=== PATIENT | female | born 1955 | race Caucasian/White ===

== ENCOUNTER 2016-09-27 13:02 | Day surgery (SDC) | payer MEDICARE, OTHER ==
[2016-09-19 08:51] VITALS: BMI 28.3
[~2016-09-27 13:02] MED LIST: LACTATED RINGERS 1,000 ML IV SCH
[2016-09-27 13:37] VITALS: RESP 18; TEMP 98.4
[2016-09-27] MEDS ORDERED: LIDOCAINE 1% 20 ML VIAL (10MG/ML) FOR IV START INTRADERMA ONE (13:43)
[2016-09-27] MEDS ORDERED: PROPOFOL 10 MG/ML 20 ML VIAL IV ONE (15:03)
--- NOTE | 2016-09-27 15:37 | P.PCN ---
Date of Procedure: 09/27/16 Procedure(s) Performed: Procedure: 1. Esophagogastroduodenoscopy and biopsy. 2. Total colonoscopy. Preoperative diagnosis: Unexplained weight loss and change in bowel habits. Postoperative diagnosis: 1. Small sliding hiatal hernia with no evidence of esophagitis or complicated reflux disease. 2. Mild gastritis and duodenitis. 3. Diverticulosis of the colon with no evidence of acute diverticulitis, strictures, polyps or cancer. Preparation: HalfLytely prep. Sedation: Was provided by anesthesia. Brief clinical history: The patient is a 60-year-old female who is referred for this evaluation for the above reasons. She had a colonoscopy around 5 years ago. The patient has lost around 20-25 pounds over the last couple months. Occasional difficulty swallowing but no history of bleeding. No prior upper endoscopy. Procedure: With the patient on her left lateral decubitus position and after informed consent and adequate sedation, I passed the Olympus-GIF 160 video upper endoscope through the cricopharyngeus down the esophagus. GE junction was around 38 cm from the incisors and there was a small sliding hiatal hernia. The esophagus did not show any erosions, ulcers, strictures or Morfin's esophagus. The endoscope was then passed into the stomach which was insufflated with air and inspected in detail including the retroflex view in the cardia. There was some mottling and erythema in the antrum but no ulcers or erosions. Pyloric channel did not show any ulcers. Duodenal bulb, post bulbar area and descending duodenum showed minimal erythema. I obtained biopsies from the duodenum, antrum and esophagus then the endoscope was withdrawn and I proceeded with the colonoscopy. Perianal area did not show any fissures or fistulas. There were no masses felt on digital rectal examination. The Olympus CFQ 160L video colonoscope was then inserted in the rectum in the usual fashion and advanced to the cecum. There were multiple diverticular orifices seen scattered along the length of the bowel mostly on the left side with no evidence of acute diverticulitis or strictures. The mucosa appeared healthy. No polyps or tumors were seen. I retroflexed endoscope in the rectum before the endoscope was withdrawn. The patient tolerated the procedure well. Plan: The patient was reassured. Will await pathology results. She will follow -up with you as planned and I will be happy to see in the office of her symptoms persist.
[2016-09-27] MEDS ORDERED: LACTATED RINGERS 1,000 ML IV ONE (15:40)
[2016-09-27] MEDS ORDERED: ALBUTEROL NEBULIZED 2.5 MG/3 ML INHALATION STA (15:46)
[2016-09-27 15:55] VITALS: BP 137/77
[2016-09-27 16:10] VITALS: PULSE 77
== END 2016-09-27 16:29 | disposition home or self-care (01) ==
LOC: ORWHC2ENDO 13:02
DX: K21.0 Gastro-esophageal reflux disease with esophagitis (principal); K29.50 Unspecified chronic gastritis without bleeding; K29.80 Duodenitis without bleeding; K44.9 Diaphragmatic hernia without obstruction or gangrene; K57.30 Diverticulosis of large intestine without perforation or abscess without bleeding; F17.200 Nicotine dependence, unspecified, uncomplicated; F32.9 Major depressive disorder, single episode, unspecified; Z79.891 Long term (current) use of opiate analgesic; Z79.899 Other long term (current) drug therapy; Z79.51 Long term (current) use of inhaled steroids
CPT/HCPCS: 94640; 88305; 88342; 45378; 43239; J2704

== ENCOUNTER → 2016-11-22 | Outpatient (CLI) | payer MEDICARE, OTHER ==
--- NOTE | 2016-11-22 16:06 | CT ---
EXAMINATION TYPE: CT chest w con DATE OF EXAM: 11/22/2016 3:57 PM COMPARISON: 01/01/2015 HISTORY: ABNORMAL FINDINGS ON CXR. CT DLP: 216.4 mGycm Automated exposure control for dose reduction was used. CONTRAST: CT scan of the chest is performed with IV Contrast, patient injected with 90 mL of Omnipaque 300. FINDINGS: LUNGS: There is a new left upper lobe pulmonary mass measuring 5.4 x 4.3 cm with peripheral spiculati on and focal extension to the pleural surface. This mass is felt to reflect malignancy until proven o therwise. No additional pulmonary nodules or masses are seen. Small focal pleural-based calcification right midlung zone. MEDIASTINUM: AP window adenopathy measuring up to 1 cm. Left hilar adenopathy measuring 1 cm. No maxwell tional greater than 1 cm lymph nodes are seen at this time. UPPER ABDOMEN: Heterogenous left adrenal mass is again noted and measures of 4.5 x 3.6 cm versus 4.2 x 3.5 cm. Right adrenal gland is unremarkable. OTHER: No additional significant abnormality is seen. IMPRESSION: 1. New left upper lobe mass felt to reflect malignancy until proven otherwise. Mild mediastinal and l eft hilar adenopathy. 2. Enlarging heterogenous left adrenal mass. Metastatic disease is not excluded.
== END | disposition home or self-care (01) ==
LOC: RADCTMAIN 15:30
PROVIDERS: ATTEND Family Medicine
DX: R91.8 Other nonspecific abnormal finding of lung field (principal); R59.0 Localized enlarged lymph nodes
CPT/HCPCS: 71260; Q9967

== ENCOUNTER → 2016-11-29 | Outpatient (CLI) | payer MEDICARE, OTHER ==
--- NOTE | 2016-11-29 18:57 | CT ---
EXAMINATION TYPE: CT brain wo/w con DATE OF EXAM: 11/29/2016 6:38 PM COMPARISON: NONE HISTORY: Lung mass. Headache, dizziness, and weakness. CT DLP: 2336.00 mGycm Automated exposure control for dose reduction was used. CONTRAST: CT scan of the head is performed without and with IV Contrast, patient injected with 100 mL of Omnipa que 300. FINDINGS: The ventricles of normal size. There is no mass effect nor midline shift. There is no sign of intracr anial hemorrhage. The calvarium appears intact. There is no pathologic enhancement. IMPRESSION: Negative head CT scan. No evidence of metastatic disease.
== END | disposition home or self-care (01) ==
LOC: RADCTMAIN 17:40
PROVIDERS: ATTEND Internal Medicine Hematology & Oncology
DX: R91.8 Other nonspecific abnormal finding of lung field (principal)
CPT/HCPCS: 70470; Q9967; 80053

== ENCOUNTER → 2016-12-07 | Day surgery (SDC) | payer MEDICARE, OTHER ==
[~2016-12-07] MED LIST changes: +HYDROmorphone 1 MG/ML 1 ML SYRINGE IVP PRN; -LACTATED RINGERS 1,000 ML IV SCH; +oxyCODONE-APAP 10-325MG 1 EACH TAB PO PRN
[2016-12-07 08:27] VITALS: RESP 20
[2016-12-07 08:35] LABS: Mean Platelet Volume 6.5
[2016-12-07 08:41] LABS: INR 1.1 (<1.1); Prothrombin Time 10.7 sec (9.0-12.0)
--- NOTE | 2016-12-07 10:11 | XR ---
EXAMINATION TYPE: XR chest 1V portable DATE OF EXAM: 12/07/2016 COMPARISON: NONE INDICATION: Left upper lobe fine-needle aspiration TECHNIQUE: Single frontal view of the chest is obtained. Images upright view FINDINGS: The heart size is normal. The pulmonary vasculature is normal. There is a 5.2 cm spiculated mass left apex. No pneumothorax is evident. IMPRESSION: 1. Left apical mass. 2. No pneumothorax post needle aspiration.
--- NOTE | 2016-12-07 10:17 | CT ---
EXAMINATION TYPE: CT biopsy lung LT DATE OF EXAM: 12/07/2016 HISTORY: Left upper lobe lung mass COMPARISON: CT 11/22/2016 Maximal barrier technique was utilized. The skin overlying a suitable path to the lesion was localiz ed using CT and the overlying skin was prepped and draped. Lidocaine used for local anesthesia. A s kin monty made with a scalpel. Using CT guidance, access was gained to the lesion with a 22-gauge nee dle. Aspirated specimen submitted to cytology. 5 passes were performed in all. Following the proce dure no immediate complications. The patient is discharged in stable condition. Hemostasis achieve d. IMPRESSION: SUCCESSFUL CT GUIDED BIOPSY. PATHOLOGY PENDING. THIS PROCEDURE WAS PERFORMED BY THE UNDERSIGNED.
--- NOTE | 2016-12-07 12:27 | XR ---
EXAMINATION TYPE: XR chest 1V portable DATE OF EXAM: 12/07/2016 COMPARISON: NONE INDICATION: Postbiopsy TECHNIQUE: Single frontal view of the chest is obtained. FINDINGS: The heart size is normal. The pulmonary vasculature is normal. There is a left apical lung mass. No pneumothorax is evident. Some blunting left costophrenic angle may be present. Correlate for atelectasis. IMPRESSION: 1. No pneumothorax post biopsy. 2. Blunting of the left costophrenic angle. Follow-up can be performed as clinically indicated.
[2016-12-07 13:26] VITALS: BP 118/68; PULSE 66; TEMP 98.2
== END ==
LOC: RADPROMAIN 08:02
PROVIDERS: ATTEND Internal Medicine Hematology & Oncology
DX: C34.12 Malignant neoplasm of upper lobe, left bronchus or lung (principal); R91.8 Other nonspecific abnormal finding of lung field; J44.9 Chronic obstructive pulmonary disease, unspecified; M79.7 Fibromyalgia; Z87.891 Personal history of nicotine dependence; Z79.1 Long term (current) use of non-steroidal anti-inflammatories (NSAID); Z79.891 Long term (current) use of opiate analgesic; Z79.899 Other long term (current) drug therapy; Z79.51 Long term (current) use of inhaled steroids
CPT/HCPCS: 36415; 71010; 77012; 85049; 85610; 88173; 88305; 88341; 88342

== ENCOUNTER → 2016-12-10 | Outpatient (CLI) | payer MEDICARE, OTHER ==
--- NOTE | 2016-12-12 10:41 | PE ---
Nuclear medicine PET/CT HISTORY: Lung carcinoma Patient received 13.3 mCi F-18 FDG intravenously and delayed scanning performed from the skull base t o the mid thighs. Localization and attenuation correction CT scan was also performed. Correlation to CT brain 11/29/2016, CT chest 01/01/2015 and 11/22/2016, chest x-ray 12/07/2016 Neck and chest: At the upper lobe lung mass is again noted and shows pleural extension as well as ext ension toward the mediastinum at the upper aspect of the chest. Some prevascular lymph nodes are note d. Retrocaval pretracheal nodes are not enlarged. Calcified left hilar, subcarinal nodes are present. Left hilar node shows SUV 5.2 and aorticopulmonary window node shows hypermetabolic uptake and aorti copulmonary window node is enlarged. SUV is 3.8. The left upper lobe lung mass measures approximately 6 to 7 cm in size in the axial plane, SUV is 21-22. Calcified subpleural nodule noted on the right l aterally within the lungs, axial image 90. Abdomen pelvis: There is a left adrenal mass present which shows low attenuation, there is some assoc iated calcification, no suspicious hypermetabolic uptake, the mass measures approximately 4.2 cm in g reatest dimension. Calcifications are associated within the spleen. No retroperitoneal adenopathy, no suspicious hypermetabolic uptake. Uptake within the right colon thought to be physiologic. Osseous structures within normal limits. IMPRESSION: Findings compatible with patient's history of lung carcinoma. Additional findings above.
== END | disposition home or self-care (01) ==
LOC: RADPETMAIN 09:49
PROVIDERS: ATTEND Internal Medicine Hematology & Oncology
DX: R91.1 Solitary pulmonary nodule (principal); Z85.118 Personal history of other malignant neoplasm of bronchus and lung
CPT/HCPCS: 78815; A9552

== ENCOUNTER 2017-02-23 12:36 | Emergency (ER) | payer MEDICARE, OTHER ==
[2017-02-23] MEDS ORDERED: ONDANSETRON 4 MG/2 ML VIAL IVP STA (13:00)
[2017-02-23] MEDS ORDERED: HYDROmorphone 1 MG/ML 1 ML SYRINGE IVP STA ×2 (13:00→14:42)
[2017-02-23] MEDS ORDERED: SODIUM CHLORIDE 0.9% 1,000 ML IV STA ×2 (13:00→14:42)
--- NOTE | 2017-02-23 13:03 | ED ---
General Adult HPI - General Chief complaint: Weakness Stated complaint: Vomiting Time Seen by Provider: 02/23/17 12:45 Source: patient, family, EMS, RN notes reviewed Mode of arrival: EMS - History of Present Illness Initial comments: 61-year-old female has history of lung cancer presents to the emergency department with a chief complaint of nausea vomiting and diarrhea. Patient states she woke up yesterday morning states she's been sick with this for the past 24 hours. Patient states her last chemo radiation treatment was about a week and a half. Patient states she's never had this reaction to that. Patient states she hasn't had any fever or chills. Patient states she does have soreness from throwing up so much. Patient states she was concerned due to hydration. Patient denies any recent fever, chills, shortness of breath, chest pain, numbness or tingling, dysuria or hematuria, headaches or visual changes, or any other current symptoms. - Related Data Home Medications Medication Instructions Recorded Confirmed Albuterol Inhaler [Ventolin Hfa 2 puff INHALATION QID PRN 12/03/13 02/23/17 Inhaler] Cevimeline [Evoxac] 30 mg PO BID 12/03/13 02/23/17 Escitalopram [Lexapro] 20 mg PO DAILY 12/03/13 02/23/17 Esomeprazole Magnesium [NexIUM] 40 mg PO BID 12/03/13 02/23/17 Fesoterodine Fumarate [Toviaz] 8 mg PO DAILY 12/03/13 02/23/17 Ibuprofen [Motrin] 600 mg PO Q6HR PRN 12/03/13 02/23/17 Multivit with Calcium,Iron,Min 1 tab PO DAILY 12/29/14 02/23/17 [Women's Daily Multivitamin] Latanoprost Ophth [Xalatan 0.005%] 1 drops BOTH EYES HS 09/05/16 02/23/17 oxyCODONE-APAP 10-325MG [Percocet 1 tab PO Q4-6H PRN 09/05/16 02/23/17 10-325 mg] clonazePAM [KlonoPIN] 0.5 mg PO BID PRN 11/30/16 02/23/17 Albuterol Nebulized [Ventolin 2.5 mg INHALATION RT-Q4H PRN 02/23/17 02/23/17 Nebulized] Budesonide-Formot 160-4.5 Mcg 2 puff INHALATION RT-BID 02/23/17 02/23/17 [Symbicort 160-4.5 Mcg Inhaler] Fluticasone Propionate 2 spray EA NOSTRIL DAILY 02/23/17 02/23/17 Lidocaine 5% Oint [Xylocaine 5% 1 applic TOPICAL BID PRN 02/23/17 02/23/17 Oint] Magic Mouthwash 1 dose PO DIRECTED PRN 02/23/17 02/23/17 Ondansetron Odt [Zofran ODT] 8 mg PO Q6H PRN 02/23/17 02/23/17 Prochlorperazine [Compazine] 10 mg PO Q6H PRN 02/23/17 02/23/17 Umeclidinium [place] [Incruse 1 puff INHALATION RT-DAILY 02/23/17 02/23/17 Ellipta] Previous Rx's Medication Instructions Recorded Morphine Sulfate [Ms Contin] 30 mg PO BID #60 tablet.er 03/11/15 Allergies Allergy/AdvReac Type Severity Reaction Status Date / Time No Known Allergies Allergy Verified 02/23/17 14:31 Review of Systems ROS Statement: Those systems with pertinent positive or pertinent negative responses have been documented in the HPI. ROS Other: All systems not noted in ROS Statement are negative. Past Medical History Past Medical History: Cancer, COPD, CVA/TIA, Fibromyalgia, GERD/Reflux, Hyperlipidemia, Osteoarthritis (OA), Pneumonia Additional Past Medical History / Comment(s): ADRENAL TUMOR, hx migraines, TIA, hiatal hernia, constipation, urinary incontinence,. DDD, BACK PAIN.,PT STATES RESCHEDULED FOR EGD AND COLONOSCOPY DUE TO COLD SYMPTOMS BUT SHE IS BETTER NOW. Lung cancer diagnosed November 2016. History of Any Multi-Drug Resistant Organisms: None Reported Additional Past Surgical History / Comment(s): SINUS surgery Past Anesthesia/Blood Transfusion Reactions: No Reported Reaction Past Psychological History: Depression Smoking Status: Former smoker Past Alcohol Use History: None Reported Past Drug Use History: None Reported - Past Family History Mother Family Medical History: Cancer Father Family Medical History: Cancer General Exam - General Exam Comments Initial Comments: General: The patient is awake and alert, in no distress, and does not appear acutely ill. Eye: Pupils are equal, round and reactive to light, extra-ocular movements are intact; there is normal conjunctiva bilaterally. No signs of icterus. Ears, nose, mouth and throat: There are moist mucous membranes. Neck: The neck is supple, there is no tenderness. Cardiovascular: There is a regular rate and rhythm. No murmur, rub or gallop is appreciated. Respiratory: Lungs are clear to auscultation, respirations are non-labored, breath sounds are equal. No wheezes, stridor, rales, or rhonchi. Gastrointestinal: Soft, non-distended, non-tender abdomen without masses or organomegaly noted. There is no rebound or guarding present. No CVA tenderness. Bowel sounds are unremarkable. Back: There is no tenderness to palpation in the midline. There is no obvious deformity. No rashes noted. Musculoskeletal: Normal ROM, no tenderness, There is no pedal edema. There is no calf tenderness or swelling. Sensation intact. Pulses equal bilaterally 2+. Neurological: CN II-XII intact, There are no obvious motor or sensory deficits. Coordination appears grossly intact. Speech is normal. Skin: Skin is warm and dry and no rashes or lesions are noted. Psychiatric: Cooperative, appropriate mood & affect, normal judgment. Course Vital Signs 02/23/17 02/23/17 02/23/17 12:42 13:59 14:41 Temperature 98.5 F 98.3 F 97.7 F Pulse Rate 64 66 81 Respiratory 20 18 16 Rate Blood Pressure 169/79 165/82 165/94 O2 Sat by Pulse 98 97 98 Oximetry 02/23/17 02/23/17 15:03 15:18 Temperature Pulse Rate 66 69 Respiratory Rate Blood Pressure O2 Sat by Pulse Oximetry Medical Decision Making - Medical Decision Making 61-year-old female presents to the emergency department with a chief complaint of nausea vomiting diarrhea.at this time patient was reevaluated states she has improved. She has not had vomiting. This time she was offered admission for continued supportive care. She states she does not want this and she would like to go home. At this time we will give her another fluid bolus and more nausea and pain medication. We discussed close follow-up and return parameters all patient's questions. She stated that she understood and she screamed this plan. This time she will be discharged home. - Lab Data Result diagrams: 02/23/17 13:15 02/23/17 13:15 Lab Results 02/23/17 02/23/17 02/23/17 Range/Units 13:15 13:15 13:15 WBC 10.1 (3.8-10.6) k/uL RBC 5.16 (3.80-5.40) m/uL Hgb 15.2 (11.4-16.0) gm/dL Hct 45.6 (34.0-46.0) % MCV 88.4 (80.0-100.0) fL MCH 29.4 (25.0-35.0) pg MCHC 33.3 (31.0-37.0) g/dL RDW 18.9 H (11.5-15.5) % Plt Count 408 (150-450) k/uL Neutrophils % 85 % Lymphocytes % 10 % Monocytes % 3 % Eosinophils % 0 % Basophils % 0 % Neutrophils # 8.6 H (1.3-7.7) k/uL Lymphocytes # 1.0 (1.0-4.8) k/uL Monocytes # 0.3 (0-1.0) k/uL Eosinophils # 0.0 (0-0.7) k/uL Basophils # 0.0 (0-0.2) k/uL Anisocytosis Slight PT (9.0-12.0) sec INR (<1.2) APTT (22.0-30.0) sec Sodium 142 (137-145) mmol/L Potassium 4.0 (3.5-5.1) mmol/L Chloride 104 (98-107) mmol/L Carbon Dioxide 27 (22-30) mmol/L Anion Gap 11 mmol/L BUN 9 (7-17) mg/dL Creatinine 0.62 (0.52-1.04) mg/dL Est GFR (MDRD) Af Amer >60 (>60 ml/min/1.73 sqM) Est GFR (MDRD) Non-Af >60 (>60 ml/min/1.73 sqM) Glucose 128 H (74-99) mg/dL Plasma Lactic Acid [place] (0.7-2.0) mmol/L Calcium 9.3 (8.4-10.2) mg/dL Phosphorus 3.5 (2.5-4.5) mg/dL Magnesium 1.8 (1.6-2.3) mg/dL Total Bilirubin 0.4 (0.2-1.3) mg/dL AST 18 (14-36) U/L ALT 31 (9-52) U/L Alkaline Phosphatase 109 (38-126) U/L Total Protein 7.8 (6.3-8.2) g/dL Albumin 4.3 (3.5-5.0) g/dL Amylase 35 (30-110) U/L Lipase 25 (23-300) U/L Urine Color Urine Appearance (Clear) Urine pH (5.0-8.0) Ur Specific [place] (1.001-1.035) Urine Protein (Negative) Urine Glucose (UA) (Negative) Urine Ketones (Negative) Urine Blood (Negative) Urine Nitrite (Negative) Urine Bilirubin (Negative) Urine Urobilinogen (<2.0) mg/dL Ur Leukocyte Esterase (Negative) Amorphous Sediment (None) /hpf Urine Mucus (None) /hpf 02/23/17 02/23/17 02/23/17 Range/Units 13:15 13:19 13:47 WBC (3.8-10.6) k/uL RBC (3.80-5.40) m/uL Hgb (11.4-16.0) gm/dL Hct (34.0-46.0) % MCV (80.0-100.0) fL MCH (25.0-35.0) pg MCHC (31.0-37.0) g/dL RDW (11.5-15.5) % Plt Count (150-450) k/uL Neutrophils % % Lymphocytes % % Monocytes % % Eosinophils % % Basophils % % Neutrophils # (1.3-7.7) k/uL Lymphocytes # (1.0-4.8) k/uL Monocytes # (0-1.0) k/uL Eosinophils # (0-0.7) k/uL Basophils # (0-0.2) k/uL Anisocytosis PT 10.0 (9.0-12.0) sec INR 1.0 (<1.2) APTT 25.1 (22.0-30.0) sec Sodium (137-145) mmol/L Potassium (3.5-5.1) mmol/L Chloride (98-107) mmol/L Carbon Dioxide (22-30) mmol/L Anion Gap mmol/L BUN (7-17) mg/dL Creatinine (0.52-1.04) mg/dL Est GFR (MDRD) Af Amer (>60 ml/min/1.73 sqM) Est GFR (MDRD) Non-Af (>60 ml/min/1.73 sqM) Glucose (74-99) mg/dL Plasma Lactic Acid [place] 1.0 (0.7-2.0) mmol/L Calcium (8.4-10.2) mg/dL Phosphorus (2.5-4.5) mg/dL Magnesium (1.6-2.3) mg/dL Total Bilirubin (0.2-1.3) mg/dL AST (14-36) U/L ALT (9-52) U/L Alkaline Phosphatase (38-126) U/L Total Protein (6.3-8.2) g/dL Albumin (3.5-5.0) g/dL Amylase (30-110) U/L Lipase (23-300) U/L Urine Color Light Yellow Urine Appearance Cloudy H (Clear) Urine pH 8.0 (5.0-8.0) Ur Specific [place] 1.008 (1.001-1.035) Urine Protein Negative (Negative) Urine Glucose (UA) Negative (Negative) Urine Ketones Negative (Negative) Urine Blood Negative (Negative) Urine Nitrite Negative (Negative) Urine Bilirubin Negative (Negative) Urine Urobilinogen <2.0 (<2.0) mg/dL Ur Leukocyte Esterase Negative (Negative) Amorphous Sediment Rare H (None) /hpf Urine Mucus Rare H (None) /hpf Disposition Clinical Impression: Nausea & vomiting, Diarrhea Disposition: HOME SELF-CARE Condition: Stable Instructions: Acute Nausea and Vomiting (ED) Additional Instructions: Please use medication as discussed. Please follow up with family doctor if symptoms have not improved over the next two days. Please return to the emergency room if your symptoms increase or worsen or for any other concerns. Referrals: Steffi Benoit MD [Primary Care Provider] - 1-2 days Time of Disposition: 15:54
[2017-02-23 13:42] LABS: Anisocytosis Slight; Basophils % (A) 0 %; CH 29.3; CHCM 33.3; Eosinophils % (A) 0 %; HCT 45.6 % (34.0-46.0); HDW 2.55; HGB 15.2 gm/dL (11.4-16.0); Luc # (Auto) 0.11; Luc % (Auto) 1; Lymphocytes % (A) 10 %; MCH 29.4 pg (25.0-35.0); MCHC 33.3 g/dL (31.0-37.0); MCV 88.4 fL (80.0-100.0); Mean Platelet Volume 6.4; Monocytes # (A) 0.3 k/uL (0-1.0); Monocytes % (A) 3 %; Neutrophils # (A) 8.6 k/uL (1.3-7.7); Neutrophils % (A) 85 %; RBC 5.16 m/uL (3.80-5.40); RDW 18.9 % (11.5-15.5); WBC 10.1 k/uL (3.8-10.6); WBC (Perox) 9.95
[2017-02-23 13:51] LABS: Magnesium 1.8 mg/dL (1.6-2.3); Phosphorous 3.5 mg/dL (2.5-4.5)
[2017-02-23 13:52] LABS: ALT 31 U/L (9-52); AST 18 U/L (14-36); Alkaline Phosphatase 109 U/L (38-126); Amylase 35 U/L (30-110); Anion Gap 11 mmol/L; Blood Urea Nitrogen 9 mg/dL (7-17); Calcium 9.3 mg/dL (8.4-10.2); Carbon Dioxide 27 mmol/L (22-30); Chloride 104 mmol/L (98-107); Glucose 128 mg/dL (74-99); Non-African American GFR(MDRD) >60 (>60 ml/min/1.73 sqM); Sodium 142 mmol/L (137-145); Total Bilirubin 0.4 mg/dL (0.2-1.3); Total Protein 7.8 g/dL (6.3-8.2)
[2017-02-23 14:01] LABS: Partial Thromboplastin Time 25.1 sec (22.0-30.0)
[2017-02-23 14:01] LABS: Amorphous Sediment,Urine Rare /hpf; Appearance,Urine Cloudy (Clear); Bilirubin,Urine Negative (Negative); Glucose,Urine (UA) Negative (Negative); Ketones,Urine Negative (Negative); Leukocyte Esterase,Urine Negative (Negative); Mucus,Urine Rare /hpf; Nitrite,Urine Negative (Negative); Particle Count 9185; Protein,Urine Negative (Negative); Specific Gravity,Urine 1.008 (1.001-1.035); UA Billing (MACRO vs. MICRO) MICRO; Urobilinogen,Urine <2.0 mg/dL (<2.0)
--- NOTE | 2017-02-23 14:31 | XR ---
EXAMINATION TYPE: XR chest 2V DATE OF EXAM: 02/23/2017 COMPARISON: 12/07/2016 HISTORY: Stage III left lung cancer treated with chemotherapy and radiation. TECHNIQUE: Frontal and lateral views of the chest are obtained. FINDINGS: Spiculated left upper lobe pulmonary mass is redemonstrated, decreased in size in the inte rim. Prominent sub-pleural fat and pleural reaction at the cardiophrenic angle on the left is redemon strated blunting the costophrenic angle. No focal consolidation, pleural effusion, or pneumothorax are appreciated. Cardiomediastinal silhouet te is within normal limits. Osseous structures are intact. IMPRESSION: 1. Interval decrease in size of the spiculated left upper lobe pulmonary mass corresponding to the kn own lung carcinoma. No new focal consolidation.
--- NOTE | 2017-02-23 14:33 | XR ---
2 view abdomen HISTORY: Pain 2 views of the abdomen correlated with chest x-ray same date Degenerative disc changes are present in the visualized spine, bone mineralization is reduced. There is no pneumoperitoneum or bowel obstruction. Probable vascular calcifications within the pelvis. Left proximal femur shows an apparent foreshortening view possibly due to rotation. Partial sacralization of L5 on the left. IMPRESSION: No acute abnormalities evident. Additional findings above.
[2017-02-23] MEDS ORDERED: METOCLOPRAMIDE 5 MG/ML 2 ML VIAL IVP STA (14:42)
[2017-02-23] MEDS ORDERED: IPRATROPIUM-ALBUTEROL 3 ML NEB INHALATION STA (15:00)
[2017-02-23 15:55] VITALS: BP 110/57; PULSE 87; RESP 18; TEMP 98
== END 2017-02-23 16:37 | disposition home or self-care (01) ==
LOC: EC 12:36
DX: R11.2 Nausea with vomiting, unspecified (principal); R19.7 Diarrhea, unspecified; R53.1 Weakness; J44.9 Chronic obstructive pulmonary disease, unspecified; K21.9 Gastro-esophageal reflux disease without esophagitis; F32.9 Major depressive disorder, single episode, unspecified; Z87.891 Personal history of nicotine dependence; Z79.51 Long term (current) use of inhaled steroids; Z79.899 Other long term (current) drug therapy; Z87.448 Personal history of other diseases of urinary system
CPT/HCPCS: 36415; 94640; 80053; 82150; 83605; 83690; 83735; 84100; 85025; 85610; 85730; 81001; 87040; 87086; 71020; 74020; 99285; 96374; 96375 ×2; 96376; 96361 ×2; J2765; J2405; J1170

== ENCOUNTER → 2017-03-04 | Outpatient (CLI) | payer MEDICARE, OTHER ==
--- NOTE | 2017-03-05 13:23 | PE ---
EXAMINATION TYPE: PET CT fusion skull to thigh DATE OF EXAM: 03/04/2017 COMPARISON: 12/07/2016, 11/22/2016, CT abdomen pelvis 02/18/2009 Prior PET/CT: 12/10/2016 HISTORY: Lung cancer TECHNIQUE: Following the intravenous administration of 15.6 mCi of F-18 FDG, whole body images are p erformed from the skull base to the midthigh. Images are reviewed on the computer in the coronal, ax ial, and sagittal planes. Reconstructed rotating images are created on independent workstation and r eviewed on the computer. A localization and attenuation correction CT is performed in conjunction w ith the PET scan. DLP: 285.29 mGycm SCAN: Subsequent Blood glucose: 97 mg/dL Average Mediastinum SUV: 1.3 Average Liver SUV: 2.0 FINDINGS: NECK: No abnormal uptake THORAX: There is focal increased radiotracer accumulation within the left upper lobe mass with an SUV value of 4.8. No abnormal uptake within the mediastinum or hilar regions is evident. ABDOMEN: No abnormal uptake the enlarged left adrenal gland has a normal radiotracer accumulation mario suring SUV 1.5. PELVIS: No abnormal uptake OSSEOUS STRUCTURES: No abnormal uptake LOCALIZATION CT: Left upper lobe mass spiculated. There may be a left peribronchial lymph node which is not enlarged by CT criteria and has an SUV value 1.5. Previous aortopulmonic window lymph node is not identified. Coronary artery calcification is present. The left adrenal gland is enlarged measurin g 4.0 cm in size. COMPARISON: Left upper lobe lung mass has diminished in size. Previous aortopulmonic window lymph nod e which are elevated SUV previous left peribronchial node which has elevated SUV are not hyperintense on the current study. The left adrenal gland is been enlarged since 2008. IMPRESSION: 1. Solitary pulmonary mass left upper lobe compatible with neoplasm. 2. No suspicious findings suggestive for metastatic disease. 3. Enlarged left adrenal gland has normal radiotracer without uptake to suggest hypermetabolic metast atic disease
== END | disposition home or self-care (01) ==
LOC: RADPETMAIN 10:08
PROVIDERS: ATTEND Internal Medicine Hematology & Oncology
DX: C34.12 Malignant neoplasm of upper lobe, left bronchus or lung (principal); E27.8 Other specified disorders of adrenal gland
CPT/HCPCS: 78815; A9552

== ENCOUNTER → 2017-03-07 | Outpatient (CLI) | payer MEDICARE, OTHER | END | disposition home or self-care (01) | LOC: LABWHC1 12:37 | PROVIDERS: ATTEND Radiology Radiation Oncology | DX: R19.4 Change in bowel habit (principal); R19.12 Hyperactive bowel sounds | CPT/HCPCS: 87324 ==

== ENCOUNTER → 2017-04-27 | Outpatient (CLI) | payer MEDICARE, OTHER ==
[2017-04-27 16:03] LABS: ALT 27 U/L (9-52); AST 16 U/L (14-36); Alkaline Phosphatase 94 U/L (38-126); Anion Gap 8 mmol/L; Blood Urea Nitrogen 10 mg/dL (7-17); Calcium 9.2 mg/dL (8.4-10.2); Carbon Dioxide 27 mmol/L (22-30); Chloride 104 mmol/L (98-107); Glucose 147 mg/dL (74-99); Non-African American GFR(MDRD) >60 (>60 ml/min/1.73 sqM); Potassium 5.4 mmol/L (3.5-5.1); Sodium 139 mmol/L (137-145); Total Bilirubin 0.1 mg/dL (0.2-1.3); Total Protein 7.2 g/dL (6.3-8.2)
--- NOTE | 2017-04-27 16:55 | CT ---
EXAMINATION TYPE: CT brain w con DATE OF EXAM: 04/27/2017 COMPARISON: NONE HISTORY: 61-year-old female with headache and dizziness x1 week. Patient with history of lung cancer, assess for metastatic disease. CT DLP: 995.6 mGycm Automated exposure control for dose reduction was used. Technique: CT scan of the head is performed with IV Contrast, patient injected with 100 mL of Omnipa que 300. FINDINGS: There is no abnormal enhancing mass or midline shift identified. The ventricles and sulci are within normal limits in size. Mild cerebral cortical atrophy. Dural venous sinuses are patent. Incidental megacisterna magna. Also, incidental partially empty sella. The globes are intact. Some frothy partial opacification of the diminutive right sphenoid sinus. IMPRESSION: 1. No suspicious findings to suggest intracranial metastases. 2. Mild atrophy. No mass effect or midline shift. 2. Some frothy opacification of the right sphenoid sinus. Findings can be seen in the setting of acut e viral sinusitis.
== END | disposition home or self-care (01) ==
LOC: RADCTMAIN 15:29
PROVIDERS: ATTEND Internal Medicine Hematology & Oncology
DX: G31.9 Degenerative disease of nervous system, unspecified (principal); R93.0 Abnormal findings on diagnostic imaging of skull and head, not elsewhere classified; C34.12 Malignant neoplasm of upper lobe, left bronchus or lung; J44.9 Chronic obstructive pulmonary disease, unspecified; M79.7 Fibromyalgia; E07.9 Disorder of thyroid, unspecified
CPT/HCPCS: 84439; 84481; 80053; 83735; 84443; 70460; 36415; Q9967

== ENCOUNTER → 2017-07-21 | Outpatient (CLI) | payer MEDICARE, OTHER ==
[2017-07-21 12:06] LABS: Blood Urea Nitrogen 10 mg/dL (7-17)
--- NOTE | 2017-07-21 13:42 | CT ---
EXAMINATION TYPE: CT chest w con DATE OF EXAM: 07/21/2017 COMPARISON: Prior CT chest 11/22/2016, PET CT 03/04/2017 HISTORY: Lung Cancer CT DLP: 369 mGycm Automated exposure control for dose reduction was used. CONTRAST: CT scan of the chest is performed with IV Contrast, patient injected with 100 ml mL of Omnipaque 300. FINDINGS: LUNGS: The left upper lobe lung nodule now only measures approximately 2.3 x 2.9 x 2.7 cm centrally a lthough there are some spiculated margins which extend more peripherally towards the pleura in the le ft upper hemithorax, this is decreased in size as compared to previous exams. There is no pleural eff usion, no pericardial effusion. No axillary, hilar, or mediastinal adenopathy. No evident additional lung mass. No endobronchial lesion. MEDIASTINUM: There are no greater than 1 cm hilar or mediastinal lymph nodes. Calcifications in the mediastinum and left hilar region compatible with old granulomatous disease. No pericardial effusion is seen. AORTA: No additional significant abnormality is seen. OTHER: Calcifications noted within the spleen compatible with old granulomatous disease as on previo us exam. Left adrenal mass shows benign characteristics and is stable in size. IMPRESSION: Interval improvement in the size of patient's left upper lobe lung mass.
== END | disposition home or self-care (01) ==
LOC: RADCTMAIN 11:24
PROVIDERS: ATTEND Internal Medicine Hematology & Oncology
DX: C34.12 Malignant neoplasm of upper lobe, left bronchus or lung (principal)
CPT/HCPCS: 82565; 84520; 71260; 36415; Q9967

== ENCOUNTER → 2017-11-04 | Outpatient (CLI) | payer MEDICARE ==
--- NOTE | 2017-11-05 12:08 | PE ---
EXAMINATION TYPE: PET CT fusion skull to thigh DATE OF EXAM: 11/04/2017 CLINICAL HISTORY: 62-year-old female restaging left lung cancer. Patient completed chemotherapy Decem 2016 and radiation therapy February 2017. TECHNIQUE: Following the intravenous administration of 10.9 mCi of F-18 FDG, whole body images are performed from the skull base to the midthigh. Images are reviewed on the computer in the coronal, a xial, and sagittal planes. Reconstructed rotating images are created on independent workstation and reviewed on the computer. A localization and attenuation correction CT is performed in conjunction with the PET scan. Glucose level: 99 mg/dL CTDI: 2.05 mGy DLP: 158.31 mGy-cm COMPARISON: 03/04/[address] chest 10/25/2017, 07/21/2017. FINDINGS: PET: Physiologic FDG uptake within the neck. Patient's spiculated left upper lobe lung mass is unchanged from 10/25/2017 measuring 2.4 cm, smaller from PET/CT of 03/04/2017 where it measured 3.7 cm. There is minimal FDG uptake, max SUV 1.9 versus 4. 8 on prior PET/CT. Average liver uptake is 2.3. Stable mixed fat and soft tissue density mass measuring 4.5 cm there is no discrete FDG uptake with f indings most compatible with a myelolipoma. Variable FDG uptake in the right hemicolon with segments of intense activity along the ascending colo n likely physiologic muscular uptake. This can be correlated with patient's routine screening colonos copy. Otherwise, physiologic FDG uptake within the abdomen and pelvis. T5 and T7 endplate fractures are unchanged without discrete uptake. ATTENUATION CORRECTION CT: Paranasal sinuses and mastoid air cells are well pneumatized. Atelectatic calcifications within the b ilateral carotid bifurcations. No cervical lymphadenopathy. Heart is normal size without pericardial effusion. Borderline ectatic ascending aorta at 3.5 cm. Mild atherosclerotic arch calcifications with conventional arch vessel branching anatomy. No thoracic lym phadenopathy. Some calcified subcarinal and left hilar lymph nodes suggest prior granulomatous diseas e. Mild emphysematous change is present. Mild diffuse bronchial wall thickening is similar. No consol idation or pleural effusion. Gallbladder is hydropic measuring 4.3 cm wide. Moderate atherosclerotic calcifications infrarenal abd ominal aorta and iliac arteries. A couple calcified granulomas in the spleen. Lead-yw-omgrxpom stool scattered throughout the abdomen. No dilated small bowel, free fluid, or free air. No mesenteric or retroperitoneal lymphadenopathy. Bladder nondistended. No abnormal fluid collection in the pelvis. Bones: Mild degenerative changes at the hips. Degenerative changes mid to lower lumbar spine. Endplat e spondylosis mid to lower thoracic spine. Cervical spondylosis. No osseous destructive process. IMPRESSION: 1. Spiculated left upper lobe mass essentially stable from 07/21/2017 measuring 2.4 cm (smaller from where it measured 3.7 cm). There is minimal residual uptake here, max SUV 1.9 (versus 4.8 on prior PET/CT) likely reflecting treated disease. Follow-up as clinically indicated. 2. No evidence for metastatic disease. 3. Stable probable myelolipoma left adrenal gland shows no FDG uptake. 4. Some variable uptake along the ascending colon likely physiologic muscular activity. This can be c orrelated with routine screening colonoscopy. 5. T5 and T7 endplate fractures are unchanged from 10/25/2017 and show no discrete uptake. 6. Hydropic gallbladder likely relating to fasting state. If right upper quadrant pain or concern for early acute cholecystitis, follow-up ultrasound or HIDA scan.
== END | disposition home or self-care (01) ==
LOC: RADPETMAIN 11:51
PROVIDERS: ATTEND Internal Medicine Hematology & Oncology
DX: C34.12 Malignant neoplasm of upper lobe, left bronchus or lung (principal); R93.3 Abnormal findings on diagnostic imaging of other parts of digestive tract; Z92.21 Personal history of antineoplastic chemotherapy; Z92.3 Personal history of irradiation
CPT/HCPCS: 78815; A9552

== ENCOUNTER 2018-01-20 10:39 | Inpatient (IN) | payer MEDICARE, OTHER ==
[2018-01-20] MEDS ORDERED: ACETAMINOPHEN IV (For NPO) 750 MG in EMPTY BAG 1 BAG IVPB STA (11:22)
[2018-01-20] MEDS ORDERED: IPRATROPIUM-ALBUTEROL 3 ML NEB INHALATION STA (11:23)
[2018-01-20] MEDS ORDERED: FAMOTIDINE 20 MG/2 ML VIAL IV STA (11:23)
--- NOTE | 2018-01-20 11:26 | ED ---
General Adult HPI - General Chief complaint: Shortness of Breath Stated complaint: MARIANNA Time Seen by Provider: 01/20/18 11:03 Source: patient, family, EMS, RN notes reviewed Mode of arrival: EMS Limitations: no limitations - History of Present Illness Initial comments: Patient is a pleasant 62-year-old female presenting to the emergency department with nausea vomiting diarrhea. Onset was around 24 hours ago. Patient has been fatigued. Patient does admit also to increased dyspnea. No fevers at home. Patient is on immunosuppressive therapy with history of lung cancer. - Related Data Home Medications Medication Instructions Recorded Confirmed Albuterol Inhaler [Ventolin Hfa 2 puff INHALATION RT-QID PRN 12/03/13 01/20/18 Inhaler] Cevimeline [Evoxac] 30 mg PO BID 12/03/13 01/20/18 Escitalopram [Lexapro] 20 mg PO DAILY 12/03/13 01/20/18 Esomeprazole Magnesium [NexIUM] 40 mg PO BID 12/03/13 01/20/18 Fesoterodine Fumarate [Toviaz] 8 mg PO DAILY 12/03/13 01/20/18 Ibuprofen [Motrin] 600 mg PO Q6HR PRN 12/03/13 01/20/18 Latanoprost Ophth [Xalatan 0.005%] 1 drops BOTH EYES HS 09/05/16 01/20/18 oxyCODONE-APAP 10-325MG [Percocet 1 tab PO Q6H PRN 09/05/16 01/20/18 10-325 mg] Albuterol Nebulized [Ventolin 2.5 mg INHALATION RT-Q4H PRN 02/23/17 01/20/18 Nebulized] Budesonide-Formot 160-4.5 Mcg 2 puff INHALATION RT-DAILY 02/23/17 01/20/18 [Symbicort 160-4.5 Mcg Inhaler] Ondansetron Odt [Zofran ODT] 8 mg PO Q6H PRN 02/23/17 01/20/18 Prochlorperazine [Compazine] 10 mg PO Q6H PRN 02/23/17 01/20/18 predniSONE 5 mg PO DAILY 04/06/17 01/20/18 ALPRAZolam [Xanax] 0.25 mg PO BID PRN 01/20/18 01/20/18 Dronabinol [Marinol] 5 mg PO BID 01/20/18 01/20/18 Megestrol [Megace] 600 mg PO DAILY PRN 01/20/18 01/20/18 Pregabalin [Lyrica] 300 mg PO BID PRN 01/20/18 01/20/18 Previous Rx's Medication Instructions Recorded Morphine Sulfate [Ms Contin] 30 mg PO BID #60 tablet.er 03/11/15 Allergies Allergy/AdvReac Type Severity Reaction Status Date / Time No Known Allergies Allergy Verified 01/20/18 12:55 Review of Systems ROS Statement: Those systems with pertinent positive or pertinent negative responses have been documented in the HPI. ROS Other: All systems not noted in ROS Statement are negative. Constitutional: Denies: fever Eyes: Denies: eye pain ENT: Denies: ear pain Respiratory: Reports: cough, dyspnea Cardiovascular: Denies: chest pain Endocrine: Reports: fatigue Gastrointestinal: Reports: nausea, vomiting, diarrhea. Denies: abdominal pain Genitourinary: Denies: dysuria Musculoskeletal: Denies: back pain Skin: Denies: rash Neurological: Denies: headache Past Medical History Past Medical History: Cancer, COPD, CVA/TIA, Fibromyalgia, GERD/Reflux, Hyperlipidemia, Osteoarthritis (OA), Pneumonia Additional Past Medical History / Comment(s): ADRENAL TUMOR, hx migraines, TIA, hiatal hernia, constipation, urinary incontinence,. DDD, BACK PAIN.,PT STATES RESCHEDULED FOR EGD AND COLONOSCOPY DUE TO COLD SYMPTOMS BUT SHE IS BETTER NOW. Lung cancer diagnosed November 2016. History of Any Multi-Drug Resistant Organisms: None Reported Additional Past Surgical History / Comment(s): SINUS surgery Past Anesthesia/Blood Transfusion Reactions: No Reported Reaction Past Psychological History: Depression Smoking Status: Former smoker Past Alcohol Use History: None Reported Past Drug Use History: None Reported - Past Family History Mother Family Medical History: Cancer Father Family Medical History: Cancer General Exam Limitations: no limitations General appearance: alert, in no apparent distress Head exam: Present: atraumatic Eye exam: Present: normal appearance, PERRL ENT exam: Present: mucous membranes dry Neck exam: Present: normal inspection Respiratory exam: Present: rales (Mostly at the left base) Cardiovascular Exam: Present: regular rate, normal rhythm GI/Abdominal exam: Present: soft, normal bowel sounds. Absent: tenderness, guarding, rigid Extremities exam: Present: normal inspection Neurological exam: Present: alert Psychiatric exam: Present: normal affect, normal mood Skin exam: Present: normal color Course Vital Signs 01/20/18 01/20/18 01/20/18 10:46 11:35 11:37 Temperature 99.0 F Pulse Rate 94 95 87 Respiratory 20 24 Rate Blood Pressure 168/103 182/88 O2 Sat by Pulse 97 97 Oximetry 01/20/18 01/20/18 01/20/18 11:47 12:19 12:59 Temperature 100.8 F H Pulse Rate 90 96 101 H Respiratory 20 24 Rate Blood Pressure 192/103 176/104 O2 Sat by Pulse 97 92 L Oximetry - Reevaluation(s) Reevaluation #1: 01/20/18 13:27 There is concern for possible sepsis at 1327. Blood culture and lactic acid and IV antibiotics will be ordered. EKG Findings - EKG Comments: EKG Findings:: Normal sinus rhythm 95. CA 114. QRS 78. QT 356. QTc 447. Normal axis. Poor R-wave progression. Right atrial enlargement. No acute ST change. Medical Decision Making - Medical Decision Making Patient is on immunosuppressive therapy, Imfinzi. Case was discussed in detail with Dr. Kern, who would like patient admitted. He agrees with Levaquin. He does request cultures and computed tomography scan of the abdomen and pelvis. Dr. Chang has been paged for admission for Dr. clay. - Lab Data Result diagrams: 01/20/18 10:55 01/20/18 10:55 Lab Results 01/20/18 01/20/18 01/20/18 Range/Units 10:55 10:55 10:55 WBC 15.5 H (3.8-10.6) k/uL RBC 5.68 H (3.80-5.40) m/uL Hgb 18.1 H (11.4-16.0) gm/dL Hct 54.1 H (34.0-46.0) % MCV 95.1 (80.0-100.0) fL MCH 31.9 (25.0-35.0) pg MCHC 33.5 (31.0-37.0) g/dL RDW 14.5 (11.5-15.5) % Plt Count 369 (150-450) k/uL Neutrophils % 92 % Lymphocytes % 3 % Monocytes % 4 % Eosinophils % 0 % Basophils % 0 % Neutrophils # 14.3 H (1.3-7.7) k/uL Lymphocytes # 0.4 L (1.0-4.8) k/uL Monocytes # 0.6 (0-1.0) k/uL Eosinophils # 0.1 (0-0.7) k/uL Basophils # 0.0 (0-0.2) k/uL PT (9.0-12.0) sec INR (<1.2) APTT (22.0-30.0) sec Sodium 141 (137-145) mmol/L Potassium 3.8 (3.5-5.1) mmol/L Chloride 107 (98-107) mmol/L Carbon Dioxide 22 (22-30) mmol/L Anion Gap 12 mmol/L BUN 20 H (7-17) mg/dL Creatinine 0.70 (0.52-1.04) mg/dL Est GFR (CKD-EPI)AfAm >90 (>60 ml/min/1.73 sqM) Est GFR (CKD-EPI)NonAf >90 (>60 ml/min/1.73 sqM) Glucose 179 H (74-99) mg/dL Plasma Lactic Acid Valdemar 1.9 (0.7-2.0) mmol/L Calcium 9.7 (8.4-10.2) mg/dL Total Bilirubin 1.1 (0.2-1.3) mg/dL AST 27 (14-36) U/L ALT 40 (9-52) U/L Alkaline Phosphatase 62 (38-126) U/L Total Protein 7.2 (6.3-8.2) g/dL Albumin 4.4 (3.5-5.0) g/dL Urine Color Urine Appearance (Clear) Urine pH (5.0-8.0) Ur Specific Thornton (1.001-1.035) Urine Protein (Negative) Urine Glucose (UA) (Negative) Urine Ketones (Negative) Urine Blood (Negative) Urine Nitrite (Negative) Urine Bilirubin (Negative) Urine Urobilinogen (<2.0) mg/dL Ur Leukocyte Esterase (Negative) Urine RBC (0-5) /hpf Ur Squamous Epith Cells (0-4) /hpf Amorphous Sediment (None) /hpf 01/20/18 01/20/18 Range/Units 10:55 11:37 WBC (3.8-10.6) k/uL RBC (3.80-5.40) m/uL Hgb (11.4-16.0) gm/dL Hct (34.0-46.0) % MCV (80.0-100.0) fL MCH (25.0-35.0) pg MCHC (31.0-37.0) g/dL RDW (11.5-15.5) % Plt Count (150-450) k/uL Neutrophils % % Lymphocytes % % Monocytes % % Eosinophils % % Basophils % % Neutrophils # (1.3-7.7) k/uL Lymphocytes # (1.0-4.8) k/uL Monocytes # (0-1.0) k/uL Eosinophils # (0-0.7) k/uL Basophils # (0-0.2) k/uL PT 10.7 (9.0-12.0) sec INR 1.1 (<1.2) APTT 21.6 L (22.0-30.0) sec Sodium (137-145) mmol/L Potassium (3.5-5.1) mmol/L Chloride (98-107) mmol/L Carbon Dioxide (22-30) mmol/L Anion Gap mmol/L BUN (7-17) mg/dL Creatinine (0.52-1.04) mg/dL Est GFR (CKD-EPI)AfAm (>60 ml/min/1.73 sqM) Est GFR (CKD-EPI)NonAf (>60 ml/min/1.73 sqM) Glucose (74-99) mg/dL Plasma Lactic Acid Valdemar (0.7-2.0) mmol/L Calcium (8.4-10.2) mg/dL Total Bilirubin (0.2-1.3) mg/dL AST (14-36) U/L ALT (9-52) U/L Alkaline Phosphatase (38-126) U/L Total Protein (6.3-8.2) g/dL Albumin (3.5-5.0) g/dL Urine Color Light Yellow Urine Appearance Clear (Clear) Urine pH 7.5 (5.0-8.0) Ur Specific Thornton 1.007 (1.001-1.035) Urine Protein Negative (Negative) Urine Glucose (UA) 2+ H (Negative) Urine Ketones 1+ H (Negative) Urine Blood Trace H (Negative) Urine Nitrite Negative (Negative) Urine Bilirubin Negative (Negative) Urine Urobilinogen <2.0 (<2.0) mg/dL Ur Leukocyte Esterase Negative (Negative) Urine RBC 2 (0-5) /hpf Ur Squamous Epith Cells <1 (0-4) /hpf Amorphous Sediment Rare H (None) /hpf Critical Care Time Critical Care Time: Yes Total Critical Care Time: 32 Disposition Clinical Impression: Diarrhea, Dyspnea Disposition: ADMITTED IP TO THIS HOSP Referrals: Steffi Benoit MD [Primary Care Provider] - 1-2 days Decision Time: 13:28
[2018-01-20] MEDS ORDERED: SODIUM CHLORIDE 0.9% 500 ML IV SCH (11:30)
[2018-01-20] MEDS: ONDANSETRON 4 MG/2 ML VIAL IVP STA ×2 (11:31→15:34)
[2018-01-20 11:48] LABS: Basophils % (A) 0 %; Eosinophils # (A) 0.1 k/uL (0-0.7); Eosinophils % (A) 0 %; HCT 54.1 % (34.0-46.0); HGB 18.1 gm/dL (11.4-16.0); Lymphocytes # (A) 0.4 k/uL (1.0-4.8); Lymphocytes % (A) 3 %; MCH 31.9 pg (25.0-35.0); MCHC 33.5 g/dL (31.0-37.0); MCV 95.1 fL (80.0-100.0); Mean Platelet Volume 6.4; Monocytes # (A) 0.6 k/uL (0-1.0); Monocytes % (A) 4 %; Neutrophils # (A) 14.3 k/uL (1.3-7.7); Neutrophils % (A) 92 %; Platelet Count 369 k/uL (150-450); RBC 5.68 m/uL (3.80-5.40); RDW 14.5 % (11.5-15.5); WBC 15.5 k/uL (3.8-10.6)
[2018-01-20 11:54] LABS: Amorphous Sediment,Urine Rare /hpf; Appearance,Urine Clear (Clear); Bilirubin,Urine Negative (Negative); Blood,Urine Trace (Negative); Color,Urine Light Yellow; Glucose,Urine (UA) 2+ (Negative); Ketones,Urine 1+ (Negative); Leukocyte Esterase,Urine Negative (Negative); Nitrite,Urine Negative (Negative); PH, Urine 7.5 (5.0-8.0); Protein,Urine Negative (Negative); RBC,Urine 2 /hpf (0-5); Specific Gravity,Urine 1.007 (1.001-1.035); Squamous Epithelial Cell,Urine <1 /hpf (0-4); Urobilinogen,Urine <2.0 mg/dL (<2.0)
[2018-01-20 12:00] LABS: ALT 40 U/L (9-52); AST 27 U/L (14-36); Albumin 4.4 g/dL (3.5-5.0); Alkaline Phosphatase 62 U/L (38-126); Anion Gap 12 mmol/L; Blood Urea Nitrogen 20 mg/dL (7-17); Calcium 9.7 mg/dL (8.4-10.2); Carbon Dioxide 22 mmol/L (22-30); Chloride 107 mmol/L (98-107); Glucose 179 mg/dL (74-99); Potassium 3.8 mmol/L (3.5-5.1); Sodium 141 mmol/L (137-145); Total Bilirubin 1.1 mg/dL (0.2-1.3); Total Protein 7.2 g/dL (6.3-8.2)
[2018-01-20 12:09] LABS: INR 1.1 (<1.2); Prothrombin Time 10.7 sec (9.0-12.0)
[2018-01-20 12:13] LABS: Partial Thromboplastin Time 21.6 sec (22.0-30.0)
--- NOTE | 2018-01-20 12:30 | XR ---
EXAMINATION TYPE: XR chest 2V DATE OF EXAM: 01/20/2018 HISTORY: Fever. REFERENCE: Previous study dated 05/08/2017. FINDINGS: The lungs are overinflated. There is a left upper lobe mass similar in size since the previ ous study. The lungs are otherwise clear. There is a left-sided pleural reaction likely representing fluid. The heart is not enlarged. IMPRESSION: 1. COPD. 2. STABLE LEFT UPPER LOBE PULMONARY MASS. 3. PROBABLE LEFT EFFUSION.
[2018-01-20] MEDS ORDERED: MORPHINE SULFATE 4 MG/ML SYRINGE IVP STA (12:46)
[2018-01-20] MEDS ORDERED: LEVOFLOXACIN 750MG-D5W PMX 750 MG in DEXTROSE/WATER 1 150ML.BAG IVPB STA (13:28)
[2018-01-20] MEDS ORDERED: PNEUMONIA PROTOCOL UTILIZED 1 EACH MISC PO PRN (13:28)
[2018-01-20] MEDS ORDERED: IOPAMIDOL-300 CONTRAST 30 ML VIAL (ORAL USE) PO PRN (13:31)
[2018-01-20] MEDS: SODIUM CHLORIDE 0.9% 1,000 ML IV SCH (14:38)
[2018-01-20] MEDS ORDERED: amLODIPine 5 MG TAB PO STA (15:13)
--- NOTE | 2018-01-20 16:10 | CT ---
EXAMINATION TYPE: CT abdomen pelvis w con DATE OF EXAM: 01/20/2018 HISTORY: Diarrhea, nausea, vomiting, and fever with history of stage [facility] DLP: 310mGycm Automated Exposure Control for Dose Reduction was Utilized. CONTRAST: CT scan of the abdomen and pelvis is performed with oral and with IV Contrast, patient injected with 100 mL of Isovue 300. COMPARISON: PET/CT March 04, 2017. CT chest February 24, 2018 FINDINGS: LUNG BASES: No significant abnormality is appreciated. LIVER/GB: No significant abnormality is appreciated. PANCREAS: No significant abnormality is seen. SPLEEN: A few calcifications are redemonstrated scattered throughout the spleen presumed product of o ld granulomatous disease. ADRENALS: There is persistent heterogeneous enhancing left adrenal mass measuring roughly 4.3 x 3.9 c m significantly changed in size from most recent chest CT KIDNEYS: No significant abnormality is seen. BOWEL: The oral contrast does not reach colonic level making evaluation slightly suboptimal. There is no suspicious small or large bowel dilatation. There is mild wall thickening in the mid to distal si gmoid colon axial images 54 through 56 for reference. Finding could be product of poor distention how ever a mild acute colitis at this level cannot be excluded. UTERUS/ADNEXA: Retroverted uterus is present. A few scattered pelvic phleboliths are present. LYMPH NODES: No greater than 1cm abdominal or pelvic lymph nodes are appreciated. OSSEOUS STRUCTURES: No significant abnormality is seen. OTHER: No significant additional abnormality is seen. IMPRESSION: No bowel obstruction is seen. Possible mild colitis mid to distal sigmoid colon. Correlat e clinically.
[2018-01-20] MEDS ORDERED: ALBUTEROL NEBULIZED 2.5 MG/3 ML INHALATION PRN (19:07)
[2018-01-20] MEDS ORDERED: IBUPROFEN 600 MG TAB PO PRN (19:07)
[2018-01-20] MEDS ORDERED: MEGESTROL 400 MG/10 ML CUP PO PRN (19:07)
[2018-01-20] MEDS ORDERED: PROCHLORPERAZINE 10 MG TAB PO PRN (19:07)
[2018-01-20] MEDS ORDERED: PREGABALIN 100 MG CAP PO PRN (19:07)
[2018-01-20] MEDS ORDERED: ALPRAZolam 0.25 MG TAB PO PRN (19:07)
[2018-01-20] MEDS: SYMBICORT 160-4.5 MCG INHALER INHALATION SCH (20:14)
[2018-01-20] MEDS: ALBUTEROL NEBULIZED 2.5 MG/3 ML INHALATION PRN (20:15)
[2018-01-20] MEDS: MORPHINE SULFATE ER 30 MG TABLET PO SCH (20:38)
[2018-01-20] MEDS: LATANOPROST 0.005% OPHTH DROPS 2.5 ML BTL BOTH EYES SCH (20:39)
[2018-01-20] MEDS: CEVIMELINE 30 MG CAP PO SCH (20:40)
[2018-01-20] MEDS: DRONABINOL 2.5 MG CAP PO SCH (20:40)
[2018-01-20] MEDS ORDERED: FUROSEMIDE 10 MG/ML 2 ML VIAL IV STA (21:33)
[2018-01-20] MEDS: HYDROmorphone 0.5 MG/0.5 ML SYRINGE IVP PRN (22:45)
[2018-01-21] MEDS: HYDROmorphone 0.5 MG/0.5 ML SYRINGE IVP PRN ×4 (05:44→22:57)
[2018-01-21] MEDS: SODIUM CHLORIDE 0.9% 1,000 ML IV SCH ×3 (06:23→21:54)
[2018-01-21] MEDS: oxyCODONE-APAP 10-325MG 1 EACH TAB PO PRN (07:14)
--- NOTE | 2018-01-21 07:56 | XR ---
EXAMINATION TYPE: XR chest 2V DATE OF EXAM: 01/21/2018 HISTORY: pneumonia. REFERENCE: Previous study dated 01/20/2018. FINDINGS: The lungs are overinflated. There is a stable left upper lobe mass. There is worsening atel ectasis at the left lung base. There is a left-sided effusion. The right lung is clear. The heart is not enlarged. IMPRESSION: 1. COPD. 2. STABLE LEFT UPPER LOBE MASS. 3. WORSENING LEFT BASILAR ATELECTASIS. 4. LEFT-SIDED EFFUSION
[2018-01-21] MEDS: SYMBICORT 160-4.5 MCG INHALER INHALATION SCH (08:42)
[2018-01-21] MEDS: ALBUTEROL NEBULIZED 2.5 MG/3 ML INHALATION PRN ×2 (08:42→17:02)
[2018-01-21] MEDS: TROSPIUM CHLORIDE 20 MG TABLET PO SCH ×2 (09:33→21:54)
[2018-01-21] MEDS: ESCITALOPRAM 20 MG TAB PO SCH (09:34)
[2018-01-21] MEDS: predniSONE 5 MG TAB PO SCH (09:34)
[2018-01-21] MEDS: PANTOPRAZOLE 40 MG TABLET PO SCH ×2 (09:34→18:07)
[2018-01-21] MEDS: MORPHINE SULFATE ER 30 MG TABLET PO SCH ×2 (09:48→21:55)
[2018-01-21] MEDS: DRONABINOL 2.5 MG CAP PO SCH ×2 (09:48→21:56)
[2018-01-21] MEDS: CEVIMELINE 30 MG CAP PO SCH ×2 (09:49→21:53)
--- NOTE | 2018-01-21 11:24 | P.CNPUL ---
History of Present Illness Consult date: 01/21/18 Reason for consult: lung mass History of present illness: 62-year-old female patient with known history of adenocarcinoma of the left upper lobe, stage III disease, treated with accommodation of chemoradiation therapy following that the patient was placed on immunotherapy with a PT L1 antagonist initially with Opdivo and later on with Infinzi. Noted the patient has been responding very nicely to immunotherapy and there has been considerable drop in the size of the left upper lobe mass on follow-up CAT scan that was done in October 2017. The patient has started on Infinzi approximately a month ago and she has received 3 sessions thus far. She came into the hospital because of increased nausea vomiting and diarrhea. This started approximately 24 hours ago. No fever or chills. She was fatigued. She was having some increased chest congestion and no pleurisy. No hemoptysis. No hemodynamic instability pH was given IV fluids and she was given a dose of Levaquin. This morning the patient is feeling much better and she is back to her baseline. No other new complaints otherwise for now. All of the blood work is within normal limits. White cell count is slightly elevated at 15.5. The UA is showing +2 ketones and +1 blood otherwise there is no infection. Review of Systems 12 point review of system was done and the positive findings are almost above in history of present illness. The patient is feeling better today. No nausea or vomiting and she was able to have breakfast and does not have any GI symptoms. Past Medical History Past Medical History: Cancer, COPD, CVA/TIA, Fibromyalgia, GERD/Reflux, Hyperlipidemia, Osteoarthritis (OA), Pneumonia Additional Past Medical History / Comment(s): Non-small cell lung cancer stage 3 adenocarcinoma, COPD, fibromyalgia, acid reflux, hyperlipidemia, osteoarthritis, adrenal mass that has remained stable over some time, TIA history of, hiatal hernia, chronic constipation, chronic back pain, degenerative arthritis History of Any Multi-Drug Resistant Organisms: None Reported Additional Past Surgical History / Comment(s): SINUS surgery Past Anesthesia/Blood Transfusion Reactions: No Reported Reaction Past Psychological History: Depression Smoking Status: Former smoker Past Alcohol Use History: None Reported Past Drug Use History: None Reported - Past Family History Mother Family Medical History: Cancer Father Family Medical History: Cancer Medications and Allergies Home Medications Medication Instructions Recorded Confirmed Type Albuterol Inhaler [Ventolin Hfa 2 puff INHALATION RT-QID PRN 12/03/13 01/20/18 History Inhaler] Cevimeline [Evoxac] 30 mg PO BID 12/03/13 01/20/18 History Escitalopram [Lexapro] 20 mg PO DAILY 12/03/13 01/20/18 History Esomeprazole Magnesium [NexIUM] 40 mg PO BID 12/03/13 01/20/18 History Fesoterodine Fumarate [Toviaz] 8 mg PO DAILY 12/03/13 01/20/18 History Ibuprofen [Motrin] 600 mg PO Q6HR PRN 12/03/13 01/20/18 History Morphine Sulfate [Ms Contin] 30 mg PO BID #60 tablet.er 03/11/15 01/20/18 Rx Latanoprost Ophth [Xalatan 0.005%] 1 drops BOTH EYES HS 09/05/16 01/20/18 History oxyCODONE-APAP 10-325MG [Percocet 1 tab PO Q6H PRN 09/05/16 01/20/18 History 10-325 mg] Albuterol Nebulized [Ventolin 2.5 mg INHALATION RT-Q4H PRN 02/23/17 01/20/18 History Nebulized] Budesonide-Formot 160-4.5 Mcg 2 puff INHALATION RT-DAILY 02/23/17 01/20/18 History [Symbicort 160-4.5 Mcg Inhaler] Ondansetron Odt [Zofran ODT] 8 mg PO Q6H PRN 02/23/17 01/20/18 History Prochlorperazine [Compazine] 10 mg PO Q6H PRN 02/23/17 01/20/18 History predniSONE 5 mg PO DAILY 04/06/17 01/20/18 History ALPRAZolam [Xanax] 0.25 mg PO BID PRN 01/20/18 01/20/18 History Dronabinol [Marinol] 5 mg PO BID 01/20/18 01/20/18 History Megestrol [Megace] 600 mg PO DAILY PRN 01/20/18 01/20/18 History Pregabalin [Lyrica] 300 mg PO BID PRN 01/20/18 01/20/18 History Allergies Allergy/AdvReac Type Severity Reaction Status Date / Time No Known Allergies Allergy Verified 01/20/18 12:55 Physical Exam Vitals: Vital Signs Temp Pulse Pulse Resp BP BP Pulse Ox 01/21/18 08:55 98 01/21/18 08:42 90 01/21/18 07:00 98.5 F 81 20 125/81 97 01/20/18 23:00 96.8 F L 102 H 16 139/96 95 01/20/18 20:31 100 01/20/18 20:16 100 01/20/18 16:55 98.6 F 96 20 179/87 95 01/20/18 16:05 92 18 174/85 98 01/20/18 15:40 100.4 F H 01/20/18 15:30 91 18 185/82 99 01/20/18 14:34 93 18 181/93 94 L 01/20/18 12:59 100.8 F H 101 H 24 176/104 92 L 01/20/18 12:19 96 20 192/103 97 01/20/18 11:47 90 01/20/18 11:37 87 01/20/18 11:35 95 24 182/88 97 Intake and Output 01/20/18 01/21/18 01/21/18 22:59 06:59 14:59 Intake Total 590 Balance 590 Intake: Oral 590 Other: Voiding Method Toilet # Voids 2 2 The patient appeared well nourished and normally developed. Vital signs as documented. Head exam is unremarkable. No scleral icterus or corneal arcus noted. Neck is without jugular venous distension, thyromegaly, or carotid bruits. Carotid upstrokes are brisk bilaterally. Lungs few scattered rhonchi and few scattered expiratory wheezes. Cardiac exam reveals the PMI to be normally sized and situated. Rhythm is regular. First and second heart sounds normal. No murmurs, rubs or gallops. Abdominal exam reveals normal bowel sounds , no masses, no organomegaly and no aortic enlargement. Extremities are nonedematous and both femoral and pedal pulses are normal. Neurologically the patient is awake and alert and there is no focal neurological deficits. Psychiatric appropriate. SkinExamination of the skin revealed no evidence of significant rashes, suspicious appearing nevi or other concerning lesions. Results - Laboratory Findings CBC and BMP: 01/20/18 10:55 07/14/18 10:55 PT/INR, D-dimer PT 10.7 sec (9.0-12.0) 01/20/18 10:55 INR 1.1 (<1.2) 01/20/18 10:55 Abnormal lab findings: Abnormal Labs 01/20/18 01/20/18 01/20/18 10:55 10:55 10:55 WBC 15.5 H RBC 5.68 H Hgb 18.1 H Hct 54.1 H Neutrophils # 14.3 H Lymphocytes # 0.4 L APTT 21.6 L BUN 20 H Glucose 179 H Urine Glucose (UA) Urine Ketones Urine Blood Amorphous Sediment 01/20/18 11:37 WBC RBC Hgb Hct Neutrophils # Lymphocytes # APTT BUN Glucose Urine Glucose (UA) 2+ H Urine Ketones 1+ H Urine Blood Trace H Amorphous Sediment Rare H - Diagnostic Findings Chest x-ray: image reviewed Assessment and Plan Plan: 1 acute gastroenteritis, unlikely to be a side effect of immunotherapy for lung cancer. Symptoms are improved and the patient is was resuscitated. No signs of any septicemia 2 COPD currently inactive in stable 3 stage III non-small cell lung cancer/adenocarcinoma currently on immunotherapy 4 hyperlipidemia 5 degenerative arthritis 6 chronic back pain 7 migraine 8 history of TIA 9 fibromyalgia Plan Continue IV fluids. Adequate resuscitation. Increase oral intake as tolerated. No need for antibiotics. No need for further pulmonary workup. Chest x-ray was reviewed and the left upper lobe mass is noted however this has been decreasing in size and the patient has been treated with immunotherapy and she has responded nicely with significant interval response and decrease in the size of the lesion.
[2018-01-21] MEDS: ONDANSETRON ODT 8 MG TAB.RAPDIS PO PRN (11:49)
[2018-01-21] MEDS: LEVOFLOXACIN 750MG-D5W PMX 750 MG in DEXTROSE/WATER 1 150ML.BAG IVPB SCH (12:23)
--- NOTE | 2018-01-21 14:46 | P.HPIM ---
History of Present Illness H&P Date: 01/21/18 Chief Complaint: Nausea vomiting and diarrhea Virgen Blake is a 62-year-old female patient of Dr. Benoit who presented to [facility] emergency room with a chief complaint of worsening nausea vomiting and diarrhea. Patient has known history of adenocarcinoma of the lung stage III with known history of left upper lobe lung mass, treated with chemotherapy and currently started on immunotherapy with improvement in tumor size. Patient states that she developed worsening nausea vomiting and diarrhea about 24 hours prior to presentation her symptoms were worsening and she decided to come to emergency room, she was evaluated in the emergency room white blood count was elevated at 15.5 computed tomography scan of the abdomen and pelvis revealed evidence of mild colitis in the distal sigmoid colon, patient was given a dose of Levaquin in the emergency room and was admitted to medical floor she was also given IV fluid. Symptoms improved significantly patient has been able to tolerate diet there has been no nausea or vomiting since presentation, stool for C. diff was ordered in the emergency room, however patient did not have any further bowel movements since admission. This morning blood culture came back positive for gram-positive cocci. Past Medical History Past Medical History: Cancer, COPD, CVA/TIA, Fibromyalgia, GERD/Reflux, Hyperlipidemia, Osteoarthritis (OA), Pneumonia Additional Past Medical History / Comment(s): Non-small cell lung cancer stage 3 adenocarcinoma, COPD, fibromyalgia, acid reflux, hyperlipidemia, osteoarthritis, adrenal mass that has remained stable over some time, TIA history of, hiatal hernia, chronic constipation, chronic back pain, degenerative arthritis History of Any Multi-Drug Resistant Organisms: None Reported Additional Past Surgical History / Comment(s): SINUS surgery Past Anesthesia/Blood Transfusion Reactions: No Reported Reaction Past Psychological History: Depression Smoking Status: Former smoker Past Alcohol Use History: None Reported Past Drug Use History: None Reported - Past Family History Mother Family Medical History: Cancer Father Family Medical History: Cancer Medications and Allergies Home Medications Medication Instructions Recorded Confirmed Type Albuterol Inhaler [Ventolin Hfa 2 puff INHALATION RT-QID PRN 12/03/13 01/20/18 History Inhaler] Cevimeline [Evoxac] 30 mg PO BID 12/03/13 01/20/18 History Escitalopram [Lexapro] 20 mg PO DAILY 12/03/13 01/20/18 History Esomeprazole Magnesium [NexIUM] 40 mg PO BID 12/03/13 01/20/18 History Fesoterodine Fumarate [Toviaz] 8 mg PO DAILY 12/03/13 01/20/18 History Ibuprofen [Motrin] 600 mg PO Q6HR PRN 12/03/13 01/20/18 History Morphine Sulfate [Ms Contin] 30 mg PO BID #60 tablet.er 03/11/15 01/20/18 Rx Latanoprost Ophth [Xalatan 0.005%] 1 drops BOTH EYES HS 09/05/16 01/20/18 History oxyCODONE-APAP 10-325MG [Percocet 1 tab PO Q6H PRN 09/05/16 01/20/18 History 10-325 mg] Albuterol Nebulized [Ventolin 2.5 mg INHALATION RT-Q4H PRN 02/23/17 01/20/18 History Nebulized] Budesonide-Formot 160-4.5 Mcg 2 puff INHALATION RT-DAILY 02/23/17 01/20/18 History [Symbicort 160-4.5 Mcg Inhaler] Ondansetron Odt [Zofran ODT] 8 mg PO Q6H PRN 02/23/17 01/20/18 History Prochlorperazine [Compazine] 10 mg PO Q6H PRN 02/23/17 01/20/18 History predniSONE 5 mg PO DAILY 04/06/17 01/20/18 History ALPRAZolam [Xanax] 0.25 mg PO BID PRN 01/20/18 01/20/18 History Dronabinol [Marinol] 5 mg PO BID 01/20/18 01/20/18 History Megestrol [Megace] 600 mg PO DAILY PRN 01/20/18 01/20/18 History Pregabalin [Lyrica] 300 mg PO BID PRN 01/20/18 01/20/18 History Allergies Allergy/AdvReac Type Severity Reaction Status Date / Time No Known Allergies Allergy Verified 01/20/18 12:55 Physical Exam Vitals: Vital Signs Temp Pulse Pulse Resp BP BP Pulse Ox 01/21/18 08:55 98 01/21/18 08:42 90 01/21/18 07:00 98.5 F 81 20 125/81 97 01/20/18 23:00 96.8 F L 102 H 16 139/96 95 01/20/18 20:31 100 01/20/18 20:16 100 01/20/18 16:55 98.6 F 96 20 179/87 95 01/20/18 16:05 92 18 174/85 98 01/20/18 15:40 100.4 F H 01/20/18 15:30 91 18 185/82 99 Intake and Output 01/20/18 01/21/18 01/21/18 22:59 06:59 14:59 Intake Total 590 280 Balance 590 280 Intake: Intake, IV Titration 280 Amount Levofloxacin 750Mg-D5w 150 Pmx 750 mg In Dextrose/ Water 1 150ml.bag @ 100 mls/hr IVPB Q24H [facility] Rx#: [id number] Sodium Chloride 0.9% 1, 130 000 ml @ 100 mls/hr IV . Q10H [facility] Rx#:[id number] Oral 590 Other: Voiding Method Toilet # Voids 2 2 In general patient is alert and oriented 3 in no apparent distress HEENT head normocephalic and atraumatic Neck is supple no JVD no goiter no lymphadenopathy Chest exam reveals a few scattered crackles no wheezing Cardiac exam reveals regular heart sounds no gallops no murmurs Abdomen is soft nontender no organomegaly no palpable masses normal bowel sounds in all 4 quadrants Extremity exam reveals no edema no cyanosis or clubbing Results CBC & Chem 7: 01/20/18 10:55 01/20/18 10:55 Labs: Microbiology - Last 24 Hours (Table) 01/20/18 10:55 Blood Culture Gram Stain - Preliminary Blood 01/20/18 10:55 Blood Culture - Final Blood Thrombosis Risk Factor Assmnt - Choose All That Apply Any of the Below Risk Factors Present?: Yes Each Factor Represents 1 point: Abnormal pulmonary function (COPD) Each Risk Factor Represents 2 Points: Malignancy Thrombosis Risk Factor Assessment Total Risk Factor Score: 3 Thrombosis Risk Factor Assessment Level: Moderate Risk Assessment and Plan Plan: #1 gastroenteritis with nausea vomiting and diarrhea, there is also leukocytosis and findings on computed tomography scan of the abdomen and pelvis suggestive of colitis. At this time awaiting stool sample to check for C. diff patient symptoms improved significantly since admission. #2 positive blood culture for gram-positive cocci could be a contaminant however in view of leukocytosis will start patient on IV Rocephin and monitor closely will repeat labs and blood cultures today #3 underlying history of adenocarcinoma of the lung with left upper lobe lung mass received chemotherapy in the past and recently has been on immunotherapy #4 evidence of small left sided pleural effusion and atelectasis in the left lower lobe without evidence of nette infiltrate #4 for DVT prophylaxis will place patient on subcu Lovenox for GI prophylaxis we will use by mouth Protonix will follow during this admission. Pulmonary and oncology consultation requested
[2018-01-21 15:27] LABS: ALT 43 U/L (9-52); AST 41 U/L (14-36); Albumin 3.8 g/dL (3.5-5.0); Alkaline Phosphatase 42 U/L (38-126); Anion Gap 9 mmol/L; Blood Urea Nitrogen 26 mg/dL (7-17); Calcium 9.3 mg/dL (8.4-10.2); Carbon Dioxide 22 mmol/L (22-30); Chloride 104 mmol/L (98-107); Glucose 126 mg/dL (74-99); Potassium 3.7 mmol/L (3.5-5.1); Sodium 135 mmol/L (137-145); Total Bilirubin 1.1 mg/dL (0.2-1.3); Total Protein 6.4 g/dL (6.3-8.2)
[2018-01-21] MEDS: cefTRIAXone IN SWFI 1,000 MG/10 ML SYRINGE IVP SCH (16:52)
[2018-01-21] MEDS: ENOXAPARIN 40 MG/0.4 ML SYRINGE SQ SCH (16:52)
[2018-01-21] MEDS: LATANOPROST 0.005% OPHTH DROPS 2.5 ML BTL BOTH EYES SCH (21:56)
--- NOTE | 2018-01-21 22:43 | P.CONS ---
History of Present Illness - Reason for Consult Consult date: 01/21/18 Lung cancer on Immunotherapy. N/V/D/fever - History of Present Illness the patient is a 62-year-old white female, who was diagnosed with stage III adenocarcinoma of the lung in mid 2017. The patient was treated with concurrent chemoradiation, and subsequently additional chemotherapy. She was then placed on maintenance immunotherapy with Durvalumab. She has had 4 cycles of the same, with the most recent on 01/18/18. The patient developed nausea and vomiting as well as loose stools starting 01/19/18. Her oral intake worsened to where she was unable to keep anything down. She also noted mildly increased shortness of breath or baseline. She states that she felt feverish at home. She therefore came into the emergency room, where chest x-ray showed worsening left lower lobe atelectasis versus possible pneumonia. The case was discussed with the emergency room physician. Abdominal exam is fairly benign. The patient did have a low-grade fever at 100.8 in the ER. She was started on antibiotics, and was admitted for further management. Consult was placed for further evaluation and recommendations. Review of Systems Constitutional: Reports fever, Reports weakness Eyes: denies blurred vision, denies pain Ears: deny: decreased hearing, ear discharge, earache, tinnitus Ears, nose, mouth and throat: Denies headache, Denies sore throat Cardiovascular: Reports dyspnea on exertion Respiratory: Reports as per HPI, Reports dyspnea Gastrointestinal: Reports diarrhea, Reports nausea, Reports vomiting Genitourinary: Denies dysuria, Denies hematuria Menstruation: Reports postmenopausal Musculoskeletal: Reports muscle weakness Integumentary: Denies pruritus, Denies rash Neurological: Reports weakness Psychiatric: Denies anxiety, Denies depression Endocrine: Reports fatigue Hematologic/Lymphatic: Reports as per HPI Past Medical History Past Medical History: Cancer, COPD, CVA/TIA, Fibromyalgia, GERD/Reflux, Hyperlipidemia, Osteoarthritis (OA), Pneumonia Additional Past Medical History / Comment(s): Non-small cell lung cancer stage 3 adenocarcinoma, COPD, fibromyalgia, acid reflux, hyperlipidemia, osteoarthritis, adrenal mass that has remained stable over some time, TIA history of, hiatal hernia, chronic constipation, chronic back pain, degenerative arthritis History of Any Multi-Drug Resistant Organisms: None Reported Additional Past Surgical History / Comment(s): SINUS surgery Past Anesthesia/Blood Transfusion Reactions: No Reported Reaction Past Psychological History: Depression Smoking Status: Former smoker Past Alcohol Use History: None Reported Past Drug Use History: None Reported - Past Family History Mother Family Medical History: Cancer Father Family Medical History: Cancer Medications and Allergies Home Medications Medication Instructions Recorded Confirmed Type Albuterol Inhaler [Ventolin Hfa 2 puff INHALATION RT-QID PRN 12/03/13 01/20/18 History Inhaler] Cevimeline [Evoxac] 30 mg PO BID 12/03/13 01/20/18 History Escitalopram [Lexapro] 20 mg PO DAILY 12/03/13 01/20/18 History Esomeprazole Magnesium [NexIUM] 40 mg PO BID 12/03/13 01/20/18 History Fesoterodine Fumarate [Toviaz] 8 mg PO DAILY 12/03/13 01/20/18 History Ibuprofen [Motrin] 600 mg PO Q6HR PRN 12/03/13 01/20/18 History Morphine Sulfate [Ms Contin] 30 mg PO BID #60 tablet.er 03/11/15 01/20/18 Rx Latanoprost Ophth [Xalatan 0.005%] 1 drops BOTH EYES HS 09/05/16 01/20/18 History oxyCODONE-APAP 10-325MG [Percocet 1 tab PO Q6H PRN 09/05/16 01/20/18 History 10-325 mg] Albuterol Nebulized [Ventolin 2.5 mg INHALATION RT-Q4H PRN 02/23/17 01/20/18 History Nebulized] Budesonide-Formot 160-4.5 Mcg 2 puff INHALATION RT-DAILY 02/23/17 01/20/18 History [Symbicort 160-4.5 Mcg Inhaler] Ondansetron Odt [Zofran ODT] 8 mg PO Q6H PRN 02/23/17 01/20/18 History Prochlorperazine [Compazine] 10 mg PO Q6H PRN 02/23/17 01/20/18 History predniSONE 5 mg PO DAILY 04/06/17 01/20/18 History ALPRAZolam [Xanax] 0.25 mg PO BID PRN 01/20/18 01/20/18 History Dronabinol [Marinol] 5 mg PO BID 01/20/18 01/20/18 History Megestrol [Megace] 600 mg PO DAILY PRN 01/20/18 01/20/18 History Pregabalin [Lyrica] 300 mg PO BID PRN 01/20/18 01/20/18 History Allergies Allergy/AdvReac Type Severity Reaction Status Date / Time No Known Allergies Allergy Verified 01/20/18 12:55 Physical Exam Vitals: Vital Signs Temp Pulse Pulse Resp BP Pulse Ox 01/21/18 21:33 100 01/21/18 21:13 100 01/21/18 17:22 100 01/21/18 17:03 100 01/21/18 15:00 98.7 F 99 18 113/77 96 01/21/18 08:55 98 01/21/18 08:42 90 01/21/18 07:00 98.5 F 81 20 125/81 97 01/20/18 23:00 96.8 F L 102 H 16 139/96 95 Intake and Output 01/21/18 01/21/18 01/21/18 06:59 14:59 22:59 Intake Total 280 Balance 280 Intake: Intake, IV Titration 280 Amount Levofloxacin 750Mg-D5w 150 Pmx 750 mg In Dextrose/ Water 1 150ml.bag @ 100 mls/hr IVPB Q24H [facility] Rx#: [id number] Sodium Chloride 0.9% 1, 130 000 ml @ 100 mls/hr IV . Q10H [facility] Rx#:[id number] Other: Voiding Method Toilet Toilet # Voids 2 - Constitutional General appearance: no acute distress - EENT Eyes: EOMI, PERRLA ENT: hearing grossly normal, normal oropharynx - Neck Neck: no lymphadenopathy Thyroid: bilateral: normal size - Respiratory Respiratory: left: diminished - Cardiovascular Rhythm: regular Heart sounds: normal: S1, S2 - Gastrointestinal General gastrointestinal: normal bowel sounds, soft - Integumentary Integumentary: normal - Neurologic Neurologic: CNII-XII intact - Musculoskeletal Musculoskeletal: generalized weakness, strength equal bilaterally - Psychiatric Psychiatric: A&O x's 3 Results CBC & Chem 7: 01/20/18 10:55 01/21/18 15:00 Labs: Abnormal Lab Results - Last 24 Hours (Table) 01/21/18 Range/Units 15:00 Sodium 135 L (137-145) mmol/L BUN 26 H (7-17) mg/dL Glucose 126 H (74-99) mg/dL AST 41 H (14-36) U/L Microbiology - Last 24 Hours (Table) 01/21/18 16:50 Urine Culture - Preliminary Urine,Clean Catch 01/20/18 10:55 Blood Culture Gram Stain - Preliminary Blood Blood Culture - Preliminary Coagulase Negative Staph 01/20/18 10:55 Blood Culture - Final Blood Chest x-ray: report reviewed CT scan - abdomen: report reviewed CT scan - pelvis: report reviewed Assessment and Plan (1) Diarrhea Narrative/Plan: the patient's diarrhea has resolved today. CT of the abdomen and pelvis show mild thickening of the mid to distal sigmoid, felt to be more likely due to nondistention. A mild colitis is not ruled out but appears to be less likely, given rapid resolution of diarrhea, and benign abdominal exam. An infectious cause is therefore felt to be more likely. Current Visit: Yes Status: Acute Code(s): R19.7 - DIARRHEA, UNSPECIFIED SNOMED Code(s): 32206977 (2) Dyspnea Narrative/Plan: The patient's respiratory status is back to baseline. The initial exam in the ER, and chest x-ray there is a possibility of an infection in the left lower lobe. The patient was therefore started on Levaquin. Chest x-ray does not show any evidence of generalized pneumonitis. Therefore side effects from her medication appears to be less likely. Pulmonary evaluation is pending Current Visit: Yes Status: Acute Code(s): R06.00 - DYSPNEA, UNSPECIFIED SNOMED Code(s): 063695798 (3) Gram-positive bacteremia Narrative/Plan: The patient's blood cultures are growing gram-positive cocci. Fever has resolved on current antibiotics. Await identification of susceptibility, to rule out contaminant versus true infection. Current Visit: Yes Status: Acute Code(s): R78.81 - BACTEREMIA SNOMED Code( s): 992014587598 (4) Non-small cell lung cancer Narrative/Plan: therapeutic and diagnostic circumstances as described. The main concern was therefore presentation was due to her medication, which can cause immune mediated colitis and pneumonitis. However the clinical presentation, especially rapid resolution of symptoms, without any immunosuppressive medications, is much more suggestive of an infection. Therefore the plan will be to continue her current treatment post discharge Current Visit: Yes Status: Acute Code(s): C34.90 - MALIGNANT NEOPLASM OF UNSP PART OF UNSP BRONCHUS OR LUNG SNOMED Code(s): 607457191
[2018-01-22] MEDS: HYDROmorphone 0.5 MG/0.5 ML SYRINGE IVP PRN ×5 (02:29→20:10)
[2018-01-22] MEDS: SODIUM CHLORIDE 0.9% 1,000 ML IV SCH ×2 (06:46→16:49)
[2018-01-22] MEDS: SYMBICORT 160-4.5 MCG INHALER INHALATION SCH (07:54)
[2018-01-22 08:23] LABS: Basophils % (A) 0 %; Eosinophils # (A) 0.1 k/uL (0-0.7); Eosinophils % (A) 1 %; Lymphocytes # (A) 1.3 k/uL (1.0-4.8); Lymphocytes % (A) 11 %; MCH 31.8 pg (25.0-35.0); MCHC 33.9 g/dL (31.0-37.0); MCV 93.9 fL (80.0-100.0); Mean Platelet Volume 6.4; Monocytes # (A) 0.7 k/uL (0-1.0); Monocytes % (A) 6 %; Neutrophils # (A) 9.4 k/uL (1.3-7.7); Neutrophils % (A) 81 %; Platelet Count 303 k/uL (150-450); RBC 5.01 m/uL (3.80-5.40); RDW 14.1 % (11.5-15.5); WBC 11.7 k/uL (3.8-10.6)
[2018-01-22] MEDS: MORPHINE SULFATE ER 30 MG TABLET PO SCH ×2 (08:28→21:07)
[2018-01-22] MEDS: predniSONE 5 MG TAB PO SCH (08:28)
[2018-01-22] MEDS: TROSPIUM CHLORIDE 20 MG TABLET PO SCH ×2 (08:28→21:07)
[2018-01-22] MEDS: ENOXAPARIN 40 MG/0.4 ML SYRINGE SQ SCH (08:29)
[2018-01-22] MEDS: ESCITALOPRAM 20 MG TAB PO SCH (08:29)
[2018-01-22] MEDS: CEVIMELINE 30 MG CAP PO SCH ×2 (08:29→21:07)
[2018-01-22] MEDS: DRONABINOL 2.5 MG CAP PO SCH ×2 (08:29→21:07)
[2018-01-22] MEDS: cefTRIAXone IN SWFI 1,000 MG/10 ML SYRINGE IVP SCH (08:30)
[2018-01-22] MEDS: PANTOPRAZOLE 40 MG TABLET PO SCH ×2 (08:30→17:56)
[2018-01-22] MEDS: oxyCODONE-APAP 10-325MG 1 EACH TAB PO PRN ×2 (08:39→14:40)
[2018-01-22 08:42] LABS: ALT 38 U/L (9-52); AST 30 U/L (14-36); Albumin 3.4 g/dL (3.5-5.0); Alkaline Phosphatase 48 U/L (38-126); Anion Gap 8 mmol/L; Blood Urea Nitrogen 20 mg/dL (7-17); Calcium 8.7 mg/dL (8.4-10.2); Carbon Dioxide 25 mmol/L (22-30); Chloride 103 mmol/L (98-107); Glucose 92 mg/dL (74-99); Potassium 3.3 mmol/L (3.5-5.1); Sodium 136 mmol/L (137-145); Total Bilirubin 0.8 mg/dL (0.2-1.3); Total Protein 5.9 g/dL (6.3-8.2)
[2018-01-22] MEDS: ONDANSETRON ODT 8 MG TAB.RAPDIS PO PRN (09:11)
[2018-01-22] MEDS ORDERED: POTASSIUM CHLORIDE ER 20 MEQ TAB.ER PO STA (13:10)
--- NOTE | 2018-01-22 13:47 | P.PN ---
Subjective Progress Note Date: 01/22/18 Virgen Blake is a 62-year-old female patient of Dr. Benoit who presented to [facility] emergency room with a chief complaint of worsening nausea vomiting and diarrhea. Patient has known history of adenocarcinoma of the lung stage III with known history of left upper lobe lung mass, treated with chemotherapy and currently started on immunotherapy with improvement in tumor size. Patient states that she developed worsening nausea vomiting and diarrhea about 24 hours prior to presentation her symptoms were worsening and she decided to come to emergency room, she was evaluated in the emergency room white blood count was elevated at 15.5 computed tomography scan of the abdomen and pelvis revealed evidence of mild colitis in the distal sigmoid colon, patient was given a dose of Levaquin in the emergency room and was admitted to medical floor she was also given IV fluid. Symptoms improved significantly patient has been able to tolerate diet there has been no nausea or vomiting since presentation, stool for C. diff was ordered in the emergency room, however patient did not have any further bowel movements since admission. This morning blood culture came back positive for gram-positive cocci. On 01/22/2018 Patient currently sitting in bed without any complaints. Patient expresses that she is eager to go home. Blood culture positive for Coagulase negative Staph. Dr. Swan has been consulted for infectious disease. WBC trending down to 11.7. Patient does state that she is not having diarrhea. Patient denies chest pain or shortness of breath at this time. Awaiting infectious disease consult. Patient currently on Levaquin and Rocephin. Objective - Vital Signs Vital signs: Vital Signs Temp 98.4 F 01/22/18 07:00 Pulse 82 01/22/18 07:00 Resp 16 01/22/18 07:00 BP 129/76 01/22/18 07:00 Pulse Ox 96 01/22/18 07:00 Intake & Output 01/21/18 01/22/18 01/22/18 18:59 06:59 18:59 Intake Total 280 1780 Balance 280 1780 Intake: Intake, IV Titration 280 240 Amount Levofloxacin 750Mg-D5w 150 Pmx 750 mg In Dextrose/ Water 1 150ml.bag @ 100 mls/hr IVPB Q24H [facility] Rx#: [id number] Sodium Chloride 0.9% 1, 130 240 000 ml @ 100 mls/hr IV . Q10H [facility] Rx#:[id number] Oral 1540 Other: Voiding Method Toilet Toilet Toilet # Voids 1 - Exam Head normocephalic Neck supple Lungs clear to auscultation bilaterally no wheezing or crackles Heart regular rate and rhythm S1-S2, no rub or gallop Abdomen is soft nontender nondistended positive bowel sounds no hepatosplenomegaly Extremities no edema Neuro alert and orientated to 3 - Labs CBC & Chem 7: 01/22/18 07:26 01/22/18 07:26 Labs: Abnormal Lab Results - Last 24 Hours (Table) 01/21/18 01/22/18 01/22/18 Range/Units 15:00 07:26 07:26 WBC 11.7 H (3.8-10.6) k/uL Hct 47.0 H (34.0-46.0) % Neutrophils # 9.4 H (1.3-7.7) k/uL Sodium 135 L 136 L (137-145) mmol/L Potassium 3.3 L (3.5-5.1) mmol/L BUN 26 H 20 H (7-17) mg/dL Glucose 126 H (74-99) mg/dL AST 41 H (14-36) U/L Total Protein 5.9 L (6.3-8.2) g/dL Albumin 3.4 L (3.5-5.0) g/dL Microbiology - Last 24 Hours (Table) 01/20/18 10:55 Blood Culture Gram Stain - Preliminary Blood Blood Culture - Preliminary Coagulase Negative Staph 01/20/18 10:00 Gram Stain - Preliminary Sputum 01/21/18 16:50 Urine Culture - Preliminary Urine,Clean Catch Assessment and Plan Assessment: #1 gastroenteritis with nausea vomiting and diarrhea, there is also leukocytosis and findings on computed tomography scan of the abdomen and pelvis suggestive of colitis. At this time awaiting stool sample to check for C. diff patient symptoms improved significantly since admission. #2 positive blood culture for gram-positive cocci could be a contaminant however in view of leukocytosis will start patient on IV Rocephin and monitor closely will repeat labs and blood cultures today. Culture positive for coagulase-negative staph. Dr. Swan has been consulted. #3 underlying history of adenocarcinoma of the lung with left upper lobe lung mass received chemotherapy in the past and recently has been on immunotherapy. Dr. Mcknight has been consulted. Plan to continue her current treatment post discharge per oncology #4 evidence of small left sided pleural effusion and atelectasis in the left lower lobe without evidence of nette infiltrate. Dr. fish consulted for pulmonary no need for further pulmonary workup at this time. Left upper lobe masses noted however this has been decreasing in size and the patient has been treated with immunotherapy per pulmonary. #5 history of COPD. No exacerbation at this time #6 history of TIA #7 history of migraine #8 history of chronic back pain. Home Percocet and MS Contin ordered. DVT prophylixis will place patient on subcu Lovenox for GI prophylaxis we will use by mouth Protonix will follow during this admission. I performed an examination of the patient and discussed their management with the Nurse Practitioner. I have reviewed the Nurse Practitioner's notes and agree with the documented findings and plan of care
--- NOTE | 2018-01-22 14:23 | P.PN ---
Subjective Progress Note Date: 01/22/18 Principal diagnosis: Acute gastroenteritis 62-year-old female patient with known history of adenocarcinoma of the left upper lobe, stage III disease, treated with accommodation of chemoradiation therapy following that the patient was placed on immunotherapy with a PT L1 antagonist initially with Opdivo and later on with Infinzi. Noted the patient has been responding very nicely to immunotherapy and there has been considerable drop in the size of the left upper lobe mass on follow-up CAT scan that was done in October 2017. The patient has started on Infinzi approximately a month ago and she has received 3 sessions thus far. She came into the hospital because of increased nausea vomiting and diarrhea. This started approximately 24 hours ago. No fever or chills. She was fatigued. She was having some increased chest congestion and no pleurisy. No hemoptysis. No hemodynamic instability pH was given IV fluids and she was given a dose of Levaquin. This morning the patient is feeling much better and she is back to her baseline. No other new complaints otherwise for now. All of the blood work is within normal limits. White cell count is slightly elevated at 15.5. The UA is showing +2 ketones and +1 blood otherwise there is no infection. Patient was reevaluated today on 01/22/2018, seems to be doing relatively well, all her GI symptoms have resolved, and she has no active pulmonary symptoms as her COPD seems to be quiescent and stable. No cough no wheezing no shortness of breath. Objective - Vital Signs Vital signs: Vital Signs Temp 98.4 F 01/22/18 07:00 Pulse 82 01/22/18 07:00 Resp 16 01/22/18 07:00 BP 129/76 01/22/18 07:00 Pulse Ox 96 01/22/18 07:00 Intake & Output 01/21/18 01/22/18 01/22/18 18:59 06:59 18:59 Intake Total 280 1780 Balance 280 1780 Intake: Intake, IV Titration 280 240 Amount Levofloxacin 750Mg-D5w 150 Pmx 750 mg In Dextrose/ Water 1 150ml.bag @ 100 mls/hr IVPB Q24H [facility] Rx#: [id number] Sodium Chloride 0.9% 1, 130 240 000 ml @ 100 mls/hr IV . Q10H [facility] Rx#:[id number] Oral 1540 Other: Voiding Method Toilet Toilet Toilet # Voids 1 - Exam Physical Exam: Revealed a 62-year-old female in no distress. Head: Atraumatic, normocephalic. HEENT:[Neck is supple.] [No neck masses.] [No thyromegaly.] [No JVD.] PERRLA, EOMI, no icterus. Chest: [Clear throughout, no crackles, no rhonchi, no wheezes.] Cardiac Exam: [Normal S1 and S2, no S3 gallop, no murmur.] Abdomen: [Soft, nontender, no megaly, no rebound, no guarding, normal bowel sounds.] Extremities: [No clubbing, no edema, no cyanosis.] Neurological Exam: [No focal neurologic deficit.] Psychiatric: Normal mood affect and mental status examination. Skin: No rashes. Lymphatics: No lymphadenopathy. - Labs CBC & Chem 7: 01/22/18 07:26 01/22/18 07:26 Labs: Abnormal Lab Results - Last 24 Hours (Table) 01/21/18 01/22/18 01/22/18 Range/Units 15:00 07:26 07:26 WBC 11.7 H (3.8-10.6) k/uL Hct 47.0 H (34.0-46.0) % Neutrophils # 9.4 H (1.3-7.7) k/uL Sodium 135 L 136 L (137-145) mmol/L Potassium 3.3 L (3.5-5.1) mmol/L BUN 26 H 20 H (7-17) mg/dL Glucose 126 H (74-99) mg/dL AST 41 H (14-36) U/L Total Protein 5.9 L (6.3-8.2) g/dL Albumin 3.4 L (3.5-5.0) g/dL Microbiology - Last 24 Hours (Table) 01/20/18 10:55 Blood Culture Gram Stain - Preliminary Blood Blood Culture - Preliminary Coagulase Negative Staph 01/20/18 10:00 Gram Stain - Preliminary Sputum 01/21/18 16:50 Urine Culture - Preliminary Urine,Clean Catch Assessment and Plan Assessment: 1 acute gastroenteritis, unlikely to be a side effect of immunotherapy for lung cancer. Symptoms are improved and the patient is was resuscitated. No signs of any septicemia 2 COPD currently inactive in stable 3 stage III non-small cell lung cancer/adenocarcinoma currently on immunotherapy 4 hyperlipidemia 5 degenerative arthritis 6 chronic back pain 7 migraine 8 history of TIA 9 fibromyalgia Recommendation: Agree with discharge planning, follow-up on outpatient basis regarding her lungs cancer and COPD. Time with Patient: Less than 30
[2018-01-22] MEDS: LEVOFLOXACIN 750MG-D5W PMX 750 MG in DEXTROSE/WATER 1 150ML.BAG IVPB SCH (14:36)
--- NOTE | 2018-01-22 14:39 | P.PN ---
Subjective Progress Note Date: 01/22/18 Principal diagnosis: diarrhea, MARIANNA Pt seen in f/u, she states feeling much better today an dis anxious to go home. She can ambulate without difficulty in breathing, cough persists but near baseline, she is tolerating food and fluids, no nausea, her diarrhea has stopped , no abd pain, cramping, dysuria, swelling or pain. Objective - Vital Signs Vital signs: Vital Signs Temp 98.4 F 01/22/18 07:00 Pulse 82 01/22/18 07:00 Resp 16 01/22/18 07:00 BP 129/76 01/22/18 07:00 Pulse Ox 96 01/22/18 07:00 Intake & Output 01/21/18 01/22/18 01/22/18 18:59 06:59 18:59 Intake Total 280 1780 Balance 280 1780 Intake: Intake, IV Titration 280 240 Amount Levofloxacin 750Mg-D5w 150 Pmx 750 mg In Dextrose/ Water 1 150ml.bag @ 100 mls/hr IVPB Q24H [facility] Rx#: [id number] Sodium Chloride 0.9% 1, 130 240 000 ml @ 100 mls/hr IV . Q10H [facility] Rx#:[id number] Oral 1540 Other: Voiding Method Toilet Toilet Toilet # Voids 1 - Constitutional General appearance: Present: average body habitus, cooperative, no acute distress - EENT Eyes: Present: anicteric sclerae ENT: Present: normal oropharynx - Respiratory Respiratory: bilateral: wheezing (scattered, expiratory) - Cardiovascular Heart sounds: normal: S1, S2 - Peripheral edema leg Peripheral Edema: bilateral: None - Gastrointestinal General gastrointestinal: Present: normal bowel sounds, soft. Absent: absent bowel sounds, decreased bowel sounds, distended, hepatomegaly, hyperactive bowel sounds, organomegaly, rigid, scaphoid, splenomegaly, tenderness, umbilical hernia, ventral hernia - Integumentary Integumentary: Present: normal - Neurologic Neurologic: Present: CNII-XII intact - Musculoskeletal Musculoskeletal: Present: strength equal bilaterally - Psychiatric Psychiatric: Present: A&O x's 3, appropriate affect, intact judgment & insight - Labs CBC & Chem 7: 01/22/18 07:26 01/22/18 07:26 Labs: Abnormal Lab Results - Last 24 Hours (Table) 01/21/18 01/22/1818 Range/Units 15:00 07:26 07:26 WBC 11.7 H (3.8-10.6) k/uL Hct 47.0 H (34.0-46.0) % Neutrophils # 9.4 H (1.3-7.7) k/uL Sodium 135 L 136 L (137-145) mmol/L Potassium 3.3 L (3.5-5.1) mmol/L BUN 26 H 20 H (7-17) mg/dL Glucose 126 H (74-99) mg/dL AST 41 H (14-36) U/L Total Protein 5.9 L (6.3-8.2) g/dL Albumin 3.4 L (3.5-5.0) g/dL Microbiology - Last 24 Hours (Table) 01/20/18 10:55 Blood Culture Gram Stain - Preliminary Blood Blood Culture - Preliminary Coagulase Negative Staph 01/20/18 10:00 Gram Stain - Preliminary Sputum 01/21/18 16:50 Urine Culture - Preliminary Urine,Clean Catch Assessment and Plan (1) Non-small cell lung cancer Narrative/Plan: Pt is currently on maintenance therapy with durvalumab immunotherapy. Her presenting symptoms were questionable as to if this was infection vs immunotherapy SE but, pt improved greatly with abx therapy, did end up with bactremia. Her symptoms have resolved without the use of steroids so, recommendation is continuation of treatment. Pt agrees and will keep her appts. Current Visit: Yes Status: Acute Priority: Medium Code(s): C34.90 - MALIGNANT NEOPLASM OF UNSP PART OF UNSP BRONCHUS OR LUNG SNOMED Code(s): 007349410 Plan: Pt ok from Hem/Onc standpoint to be discharged once cleared by Attending and Consulting Physicians
[2018-01-22 22:13] VITALS: RESP 18
[2018-01-23] MEDS: HYDROmorphone 0.5 MG/0.5 ML SYRINGE IVP PRN ×2 (01:39→06:03)
[2018-01-23] MEDS: LATANOPROST 0.005% OPHTH DROPS 2.5 ML BTL BOTH EYES SCH (01:43)
[2018-01-23 06:19] VITALS: BP 164/81; PULSE 86; TEMP 98.1
[2018-01-23] MEDS: SODIUM CHLORIDE 0.9% 1,000 ML IV SCH (06:32)
[2018-01-23] MEDS: cefTRIAXone IN SWFI 1,000 MG/10 ML SYRINGE IVP SCH (07:58)
[2018-01-23] MEDS: DRONABINOL 2.5 MG CAP PO SCH (07:58)
[2018-01-23] MEDS: predniSONE 5 MG TAB PO SCH (07:59)
[2018-01-23] MEDS: CEVIMELINE 30 MG CAP PO SCH (07:59)
[2018-01-23] MEDS: ENOXAPARIN 40 MG/0.4 ML SYRINGE SQ SCH (07:59)
[2018-01-23] MEDS: PANTOPRAZOLE 40 MG TABLET PO SCH (07:59)
[2018-01-23] MEDS: TROSPIUM CHLORIDE 20 MG TABLET PO SCH (07:59)
[2018-01-23] MEDS: ESCITALOPRAM 20 MG TAB PO SCH (07:59)
[2018-01-23] MEDS: MORPHINE SULFATE ER 30 MG TABLET PO SCH (08:00)
[2018-01-23] MEDS: oxyCODONE-APAP 10-325MG 1 EACH TAB PO PRN (08:04)
[2018-01-23 08:51] LABS: Basophils % (A) 0 %; Eosinophils # (A) 0.1 k/uL (0-0.7); Eosinophils % (A) 1 %; HCT 47.8 % (34.0-46.0); HGB 15.7 gm/dL (11.4-16.0); Lymphocytes # (A) 1.3 k/uL (1.0-4.8); Lymphocytes % (A) 14 %; MCH 31.1 pg (25.0-35.0); MCHC 32.7 g/dL (31.0-37.0); MCV 95.1 fL (80.0-100.0); Mean Platelet Volume 6.3; Monocytes # (A) 0.7 k/uL (0-1.0); Monocytes % (A) 7 %; Neutrophils # (A) 7.2 k/uL (1.3-7.7); Neutrophils % (A) 77 %; Platelet Count 296 k/uL (150-450); RBC 5.03 m/uL (3.80-5.40); WBC 9.4 k/uL (3.8-10.6)
[2018-01-23] MEDS: SYMBICORT 160-4.5 MCG INHALER INHALATION SCH (09:19)
[2018-01-23 09:22] LABS: ALT 37 U/L (9-52); AST 27 U/L (14-36); Albumin 3.6 g/dL (3.5-5.0); Alkaline Phosphatase 46 U/L (38-126); Anion Gap 5 mmol/L; Blood Urea Nitrogen 15 mg/dL (7-17); Calcium 8.7 mg/dL (8.4-10.2); Carbon Dioxide 27 mmol/L (22-30); Chloride 105 mmol/L (98-107); Glucose 77 mg/dL (74-99); Potassium 4.3 mmol/L (3.5-5.1); Sodium 137 mmol/L (137-145); Total Bilirubin 0.9 mg/dL (0.2-1.3); Total Protein 6.1 g/dL (6.3-8.2)
[2018-01-23] MEDS: ONDANSETRON ODT 8 MG TAB.RAPDIS PO PRN (09:58)
--- NOTE | 2018-01-23 12:31 | P.PN ---
Subjective Progress Note Date: 01/23/18 Principal diagnosis: Acute gastroenteritis, likely related to a side effect of immunotherapy for lung cancer, recovered 62-year-old female patient with known history of adenocarcinoma of the left upper lobe, stage III disease, treated with accommodation of chemoradiation therapy following that the patient was placed on immunotherapy with a PT L1 antagonist initially with Opdivo and later on with Infinzi. Noted the patient has been responding very nicely to immunotherapy and there has been considerable drop in the size of the left upper lobe mass on follow-up CAT scan that was done in October 2017. The patient has started on Infinzi approximately a month ago and she has received 3 sessions thus far. She came into the hospital because of increased nausea vomiting and diarrhea. This started approximately 24 hours ago. No fever or chills. She was fatigued. She was having some increased chest congestion and no pleurisy. No hemoptysis. No hemodynamic instability pH was given IV fluids and she was given a dose of Levaquin. This morning the patient is feeling much better and she is back to her baseline. No other new complaints otherwise for now. All of the blood work is within normal limits. White cell count is slightly elevated at 15.5. The UA is showing +2 ketones and +1 blood otherwise there is no infection. Patient was reevaluated today on 01/22/2018, seems to be doing relatively well, all her GI symptoms have resolved, and she has no active pulmonary symptoms as her COPD seems to be quiescent and stable. No cough no wheezing no shortness of breath. On 01/23/2018 patient seen in follow-up on medical surgical floor. Her nausea vomiting and diarrhea have resolved, she states she only had a 1 day of symptoms , and that seems to have resolved completely. She is tolerating oral intake, she denies any pacific complaints, denies any dyspnea, her pulse ox is 96%, vital signs are stable, she is afebrile. Lungs are clear to auscultation. His lab work shows WBC of 9.4, hemoglobin of 15.7, electrolytes and renal profile are all within normal limits, and is ambulating within the room, and tolerating activity well, blood cultures showed coagulase-negative staph, negative sputum, and urine cultures, follow-up blood cultures were negative. Patient responded well to medical treatments, and she is hoping to be able to go home today. Objective - Vital Signs Vital signs: Vital Signs Temp 98.1 F 01/23/18 06:18 Pulse 86 01/23/18 06:18 Resp 18 01/23/18 06:18 BP 164/81 01/23/18 06:18 Pulse Ox 96 01/23/18 06:18 Intake & Output 01/22/18 01/23/18 01/23/18 18:59 06:59 18:59 Intake Total 880 Balance 880 Intake: Intake, IV Titration 880 Amount Sodium Chloride 0.9% 1, 880 000 ml @ 100 mls/hr IV . Q10H [facility] Rx#:[id number] Other: Voiding Method Toilet Toilet Toilet # Voids 2 - Exam Physical Exam: Revealed a 62-year-old female in no distress. Head: Atraumatic, normocephalic. HEENT:[Neck is supple.] [No neck masses.] [No thyromegaly.] [No JVD.] PERRLA, EOMI, no icterus. Chest: [Clear throughout, no crackles, no rhonchi, no wheezes.] Cardiac Exam: [Normal S1 and S2, no S3 gallop, no murmur.] Abdomen: [Soft, nontender, no megaly, no rebound, no guarding, normal bowel sounds.] Extremities: [No clubbing, no edema, no cyanosis.] Neurological Exam: [No focal neurologic deficit.] Psychiatric: Normal mood affect and mental status examination. Skin: No rashes. Lymphatics: No lymphadenopathy. - Labs CBC & Chem 7: 01/23/18 07:49 01/23/18 07:49 Labs: Abnormal Lab Results - Last 24 Hours (Table) 01/23/18 01/23/18 Range/Units 07:49 07:49 Hct 47.8 H (34.0-46.0) % Total Protein 6.1 L (6.3-8.2) g/dL Microbiology - Last 24 Hours (Table) 01/20/18 10:00 Gram Stain - Final Sputum Sputum Culture - Final 01/21/18 16:50 Urine Culture - Final Urine,Clean Catch 01/20/18 10:55 Blood Culture Gram Stain - Final Blood Blood Culture - Final Coagulase Negative Staph 01/21/18 15:00 Blood Culture - Preliminary Blood No Growth after 24 hours Assessment and Plan Plan: Assessment: 1 acute gastroenteritis, unlikely to be a side effect of immunotherapy for lung cancer. Symptoms are improved and the patient is was resuscitated. No signs of any septicemia 2 COPD currently inactive in stable 3 stage III non-small cell lung cancer/adenocarcinoma currently on immunotherapy 4 hyperlipidemia 5 degenerative arthritis 6 chronic back pain 7 migraine 8 history of TIA 9 fibromyalgia Recommendation: Patient's GI symptoms have completely resolved, she is tolerating oral intake, no specific complaints, denies any dyspnea. Her pulmonary standpoint patient is stable for discharge home today. I performed a history & physical examination of the patient and discussed their management with my nurse practitioner, Maribel Joyce. I reviewed the nurse practitioner's note and agree with the documented findings and plan of care. Lung sounds are clear. The findings and the impression was discussed with the patient. I attest to the documentation by the nurse practitioner. Time with Patient: Less than 30
--- NOTE | 2018-01-23 13:22 | P.DS ---
Providers Date of admission: 01/20/18 13:29 Expected date of discharge: 01/23/18 Attending physician: Glenys Chang Consults: 01/20/18 13:28 Consult Physician Stat Consulting Provider: Kaiden Mcknight Consult Reason/Comments: Oncological care Do you want consulting provider notified?: Already Contacted 01/21/18 05:27 Consult Physician Routine Consulting Provider: Gaetano Robert Consult Reason/Comments: dyspnea Do you want consulting provider notified?: Yes, Notify in am 01/22/18 13:08 Consult Physician Routine Consulting Provider: Rosana Swan Consult Reason/Comments: BC- coagulase negative staph Do you want consulting provider notified?: Yes Primary care physician: Steffi Benoit Hospital Course: Discharge diagnosis #1 gastroenteritis with nausea vomiting and diarrhea, there is also leukocytosis and findings on computed tomography scan of the abdomen and pelvis suggestive of colitis. At this time awaiting stool sample to check for C. diff patient symptoms improved significantly since admission. No complaints at this time of any nausea, vomiting or diarrhea #2 positive blood culture for gram-positive cocci could be a contaminant however in view of leukocytosis will start patient on IV Rocephin and monitor closely will repeat labs and blood cultures today. Culture positive for coagulase-negative staph. Dr. Swan has been consulted. Per nursing staff Dr. Swan believes it is to be contamination. Patient will be discharged home on levoquin antibiotic #3 underlying history of adenocarcinoma of the lung with left upper lobe lung mass received chemotherapy in the past and recently has been on immunotherapy. Dr. Mcknight has been consulted. Plan to continue her current treatment post discharge per oncology #4 evidence of small left sided pleural effusion and atelectasis in the left lower lobe without evidence of nette infiltrate. Dr. fish consulted for pulmonary no need for further pulmonary workup at this time. Left upper lobe masses noted however this has been decreasing in size and the patient has been treated with immunotherapy per pulmonary. Cleared for discharge from pulmonary standpoint #5 history of COPD. No exacerbation at this time #6 history of TIA #7 history of migraine #8 history of chronic back pain. Home Percocet and MS Contin ordered. Hospital Course Virgen Blake is a 62-year-old female patient of Dr. Benoit who presented to [facility] emergency room with a chief complaint of worsening nausea vomiting and diarrhea. Patient has known history of adenocarcinoma of the lung stage III with known history of left upper lobe lung mass, treated with chemotherapy and currently started on immunotherapy with improvement in tumor size. Patient states that she developed worsening nausea vomiting and diarrhea about 24 hours prior to presentation her symptoms were worsening and she decided to come to emergency room, she was evaluated in the emergency room white blood count was elevated at 15.5 computed tomography scan of the abdomen and pelvis revealed evidence of mild colitis in the distal sigmoid colon, patient was given a dose of Levaquin in the emergency room and was admitted to medical floor she was also given IV fluid. Symptoms improved significantly patient has been able to tolerate diet there has been no nausea or vomiting since presentation, stool for C. diff was ordered in the emergency room, however patient did not have any further bowel movements since admission. This morning blood culture came back positive for gram-positive cocci. On 01/22/2018 Patient currently sitting in bed without any complaints. Patient expresses that she is eager to go home. Blood culture positive for Coagulase negative Staph. Dr. Swan has been consulted for infectious disease. WBC trending down to 11.7. Patient does state that she is not having diarrhea. Patient denies chest pain or shortness of breath at this time. Awaiting infectious disease consult. Patient currently on Levaquin and Rocephin. On 01/23/2018 patient currently sitting in bed eager to go home. Per nursing staff Dr. Swan has rounded on patient and believes blood culture to be contamination. Patient has been cleared for discharge. patient will be prescribed Levaquin antibiotic I performed an examination of the patient and discussed their management with the Nurse Practitioner. I have reviewed the Nurse Practitioner's notes and agree with the documented findings and plan of care Patient Condition at Discharge: Stable Plan - Discharge Summary Discharge Rx Participant: No New Discharge Prescriptions: New Levofloxacin [Levaquin] 500 mg PO DAILY 3 Days #3 tab Continue Ibuprofen [Motrin] 600 mg PO Q6HR PRN PRN Reason: Pain Cevimeline [Evoxac] 30 mg PO BID Albuterol Inhaler [Ventolin Hfa Inhaler] 2 puff INHALATION RT-QID PRN PRN Reason: Shortness Of Breath Esomeprazole Magnesium [NexIUM] 40 mg PO BID Escitalopram [Lexapro] 20 mg PO DAILY Fesoterodine Fumarate [Toviaz] 8 mg PO DAILY Morphine Sulfate [Ms Contin] 30 mg PO BID #60 tablet.er Latanoprost Ophth [Xalatan 0.005%] 1 drops BOTH EYES HS oxyCODONE-APAP 10-325MG [Percocet 10-325 mg] 1 tab PO Q6H PRN PRN Reason: Pain Prochlorperazine [Compazine] 10 mg PO Q6H PRN PRN Reason: Nausea Budesonide-Formot 160-4.5 Mcg [Symbicort 160-4.5 Mcg Inhaler] 2 puff INHALATION RT-DAILY Albuterol Nebulized [Ventolin Nebulized] 2.5 mg INHALATION RT-Q4H PRN PRN Reason: Shortness Of Breath Ondansetron Odt [Zofran ODT] 8 mg PO Q6H PRN PRN Reason: Nausea predniSONE 5 mg PO DAILY Pregabalin [Lyrica] 300 mg PO BID PRN PRN Reason: Pain ALPRAZolam [Xanax] 0.25 mg PO BID PRN PRN Reason: Anxiety Dronabinol [Marinol] 5 mg PO BID Megestrol [Megace] 600 mg PO DAILY PRN PRN Reason: appetite Discharge Medication List Albuterol Inhaler [Ventolin Hfa Inhaler] 2 puff INHALATION RT-QID PRN 12/03/13 [ History] Cevimeline [Evoxac] 30 mg PO BID 12/03/13 [History] Escitalopram [Lexapro] 20 mg PO DAILY 12/03/13 [History] Esomeprazole Magnesium [NexIUM] 40 mg PO BID 12/03/13 [History] Fesoterodine Fumarate [Toviaz] 8 mg PO DAILY 12/03/13 [History] Ibuprofen [Motrin] 600 mg PO Q6HR PRN 12/03/13 [History] Morphine Sulfate [Ms Contin] 30 mg PO BID #60 tablet.er 03/11/15 [Rx] Latanoprost Ophth [Xalatan 0.005%] 1 drops BOTH EYES HS 09/05/16 [History] oxyCODONE-APAP 10-325MG [Percocet 10-325 mg] 1 tab PO Q6H PRN 09/05/16 [History] Albuterol Nebulized [Ventolin Nebulized] 2.5 mg INHALATION RT-Q4H PRN 02/23/17 [ History] Budesonide-Formot 160-4.5 Mcg [Symbicort 160-4.5 Mcg Inhaler] 2 puff INHALATION RT-DAILY 02/23/17 [History] Ondansetron Odt [Zofran ODT] 8 mg PO Q6H PRN 02/23/17 [History] Prochlorperazine [Compazine] 10 mg PO Q6H PRN 02/23/17 [History] predniSONE 5 mg PO DAILY 04/06/17 [History] ALPRAZolam [Xanax] 0.25 mg PO BID PRN 01/20/18 [History] Dronabinol [Marinol] 5 mg PO BID 01/20/18 [History] Megestrol [Megace] 600 mg PO DAILY PRN 01/20/18 [History] Pregabalin [Lyrica] 300 mg PO BID PRN 01/20/18 [History] Levofloxacin [Levaquin] 500 mg PO DAILY 3 Days #3 tab 01/23/18 [Rx] Follow up Appointment(s)/Referral(s): Steffi Benoit MD [Primary Care Provider] - 1-2 days Eyal Posey MD [STAFF PHYSICIAN] - 02/01/18 11:00 am (this is a treatment appt) Patient Instructions/Handouts: Levofloxacin (By mouth), Dyspnea (GEN) Activity/Diet/Wound Care/Special Instructions: Diet- as tolerated Activity- as tolerated
[2018-01-23] MEDS ORDERED: LEVOFLOXACIN 750 MG TAB PO SCH (14:00)
--- NOTE | 2018-01-23 22:14 | CONS ---
CONSULTATION DATE OF SERVICE: 01/23/2018 REASON FOR CONSULTATION: Positive blood culture. HISTORY OF PRESENT ILLNESS: The patient is a 62-year-old female with a past medical history significant for stage III adenocarcinoma of the lung diagnosed in mid 2016, for which the patient has been on chemoradiation, subsequently additional chemotherapy. The patient received her last chemo on 01/26/2018. The patient is presenting to the [facility] ER on 01/20/2018 with the chief complaints of nausea, vomiting and diarrhea of one day duration. The patient feels very fatigued and weak; no energy. The patient denies any high-grade fever, rigors or chills. Denies having any URI symptoms. The patient did have fever of 100.8 on presentation to the hospital. The patient had a chest x- ray which showed COPD, stable left upper lobe mass and probable left effusion. The patient also had a CT of abdomen and pelvis; for the lung bases no significant abnormality was appreciated. No bowel obstruction was seen. Mild possible colitis, mid to distal sigmoid colon. The patient did have elevated white count when admitted to hospital of 15.5. She had blood cultures obtained which were showing gram-positive cocci; hence Infectious Disease was consulted. She had a sputum culture obtained which has been negative. The patient has been treated with ceftriaxone, levofloxacin. Infectious Disease was consulted for further recommendations regarding antibiotic therapy. The patient was seen on rounds this morning. The patient has been feeling much better. Her nausea and vomiting have resolved. Denies having any chest pain or any cough. No abdominal pain or any diarrhea. REVIEW OF SYSTEMS: CONSTITUTIONAL: Positive for weakness and fever that resolved. EYES: No complaint. ENT: No complaint. RESPIRATORY: As per HPI. CARDIOVASCULAR: No complaint. GENITOURINARY: No complaint. GASTROINTESTINAL: As per HPI. MUSCULOSKELETAL: No complaint. INTEGUMENTARY: No complaint. PSYCHOLOGICAL: No complaint. ENDOCRINE: No complaint. NEUROLOGICAL: No complaint. PAST MEDICAL HISTORY: 1. COPD. 2. CVA, TIA. 3. Fibromyalgia. 4. Gastroesophageal reflux disease. 5. Hyperlipidemia. 6. Osteoarthritis. 7. Pneumonia. 8. Stage III [id number] lung cancer. 9. Hiatal hernia. 10.Chronic back pain. 11.Osteoarthritis. 12.Depression. PAST SURGICAL HISTORY: 1. Sinus surgery. 2. Lung biopsy. SOCIAL HISTORY: Positive for smoking. No drinking or drug use. FAMILY HISTORY: Positive for history of cancer, type unknown. ALLERGIES: NO KNOWN DRUG ALLERGIES. CURRENT MEDICATIONS: 1. Sanctura. 2. Compazine. 3. Lyrica. 4. Prednisone. 5. Protonix. 6. Percocet. 7. Zofran. 8. Megace. 9. Levaquin. 10.Dilaudid. 11.Rocephin. 12.Symbicort. 13.Xanax. 14.Ventolin. PHYSICAL EXAMINATION: Blood pressure is 164/81 with a pulse of 86, temperature 98.1. She is 96% on room air. General description is an elderly female lying in bed in no distress. HEENT examination shows no pallor or scleral icterus. Oral mucosa membrane is dry. No pharyngeal erythema or thrush. NECK: Trachea is central. No thyromegaly. LUNGS: Unlabored breathing. Clear to auscultation anteriorly. No wheeze or crackle. HEART: S1, S2. Regular rate and rhythm. ABDOMEN: Soft. No tenderness. No guarding or rigidity. EXTREMITIES: No edema of feet. SKIN EXAMINATION: No rash or mass palpable. Neurologically the patient is awake, alert oriented 2 mood and affect is normal LABS: Hemoglobin 15.7, white count 9.4 with a BUN of 15, creatinine 0.72. Electrolytes have been normal. Urine is negative. Blood culture with coagulase-negative staph. X-ray report as mentioned above. DIAGNOSTIC IMPRESSION AND PLAN: 1. Patient admitted to hospital with acute nausea, vomiting and diarrhea. Patient has recently gotten her chemotherapy. Could have been related to chemotherapy. CT of abdomen and pelvis did show questionable mild colitis, though symptoms resolved. 2. Patient with a question of possible pneumonia as patient has responded to the Rocephin and Levaquin. 3. Positive blood culture with coagulase-negative Staphylococcus, likely a skin contamination. PLAN: 1. No need for antibiotic therapy for the positive blood culture. 2. In view of the overall improvement and the patient's resolution of symptoms, to finish therapy with oral Levaquin for another 7days. Patient was cleared to be discharged from an infectious disease standpoint, as the patient is insisting on going home. Communicated with nurse practitioner for the primary team. MMODL / IJN: [id number] / CARMEN
--- NOTE | 2018-01-24 11:32 | CDI ---
Last Revision, June 2017 Documentation Clarification Form Date: 01/24/18 From: Emmy Alfaro Phone: If you have a question regarding this query, please contact Odilia Smith at [phone] between 8am and 5pm. Admit Date: 01/20/2018 1:29:00 PM Patient Name: Virgen Blake Visit Number: [id number] Discharge Date: 01/23/18 ATTENTION: The Clinical Documentation Specialists (CDI) and [facility] Coding Staff appreciate your assistance in clarifying documentation. Please respond to the clarification below the line at the bottom and electronically sign. The CDI & [facility] Coding staff will review the response and follow-up if needed. Please note: Queries are made part of the Legal Health Record. If you have any questions, please contact the author of this message via ITS. Dr. Glenys Chang Colitis is documented in the H&P, Dr. Mcknight's consult note, Dr. Swan's consult note, Karina Cobian's 01/22 progress note and in the discharge summary. Patient history/risk factors: Patient was admitted due to diarrhea, nausea and vomiting and diagnosed with acute gastroenteritis and possible colitis Patient has a history of lung cancer, COPD, GERD. Clinical Indicators: Diarrhea Radiology: 01/20 abdomen: No bowel obstruction is seen. Possible mild colitis mid to distal sigmoid colon. Consult: Dr. Mcknight documented that a mild colitis is not ruled out but appears to be less likely, given the rapid resolution of diarrhea and benign abdominal exam. An infectious cause is therefor felt to be more likely. Treatment: Medication: Patient got IV and PO Levaquin and IV Rocephin In your professional opinion, can you please further specify the following regarding the colitis, if known? Type Cause Any related complications Other, please specify Unable to determine MTDD
--- NOTE | 2018-01-29 10:46 | CDI ---
Last Revision, June 2017 Documentation Clarification Form Date: 01/29/18 From: Emmy Alfaro Phone: If you have a question regarding this query, please contact Odilia Smith at [phone] between 8am and 5pm. Admit Date: 01/20/2018 1:29:00 PM Patient Name: Virgen Blake Visit Number: [id number] Discharge Date: 01/23/18 ATTENTION: The Clinical Documentation Specialists (CDI) and [facility] Coding Staff appreciate your assistance in clarifying documentation. Please respond to the clarification below the line at the bottom and electronically sign. The CDI & [facility] Coding staff will review the response and follow-up if needed. Please note: Queries are made part of the Legal Health Record. If you have any questions, please contact the author of this message via ITS. Dr. Glenys Chang Thank you for signing your previous query. Please document a response before signing this query. Colitis is documented in the H&P, Dr. Mcknight's consult note, Dr. Swan's consult note, Karina Cobian's 01/22 progress note and in the discharge summary. Patient history/risk factors: Patient was admitted due to diarrhea, nausea and vomiting and diagnosed with acute gastroenteritis and possible colitis Patient has a history of lung cancer, COPD, GERD. Clinical Indicators: Diarrhea Radiology: 01/20 abdomen: No bowel obstruction is seen. Possible mild colitis mid to distal sigmoid colon. Consult: Dr. Mcknight documented that a mild colitis is not ruled out but appears to be less likely, given the rapid resolution of diarrhea and benign abdominal exam. An infectious cause is therefor felt to be more likely. Treatment: Medication: Patient got IV and PO Levaquin and IV Rocephin In your professional opinion, can you please further specify the following regarding the colitis, if known? Type Cause Any related complications Other, please specify Unable to determine MTDD
--- NOTE | 2018-02-05 10:42 | CDI ---
Last Revision, June 2017 Documentation Clarification Form Date: 02/05/18 From: Emmy Alfaro Phone: If you have a question regarding this query, please contact Odilia Smith at [phone] between 8 am and 5pm. Admit Date: 01/20/2018 1:29:00 PM Patient Name: Virgen Blake Visit Number: [id number] Discharge Date: 01/23/18 ATTENTION: The Clinical Documentation Specialists (CDI) and [facility] Coding Staff appreciate your assistance in clarifying documentation. Please respond to the clarification below the line at the bottom and electronically sign. The CDI & [facility] Coding staff will review the response and follow-up if needed. Please note: Queries are made part of the Legal Health Record. If you have any questions, please contact the author of this message via ITS. Dr. Glenys Chang Thank you for signing your previous query. Please document a resonse before signing this query. Colitis is documented in the H&P, Dr. Mcknight's consult note, Dr. Swan's consult note, Karina Cobian's 01/22 progress note and in the discharge summary. Patient history/risk factors: Patient was admitted due to diarrhea, nausea and vomiting and diagnosed with acute gastroenteritis and possible colitis Patient has a history of lung cancer, COPD, GERD. Clinical Indicators: Diarrhea Radiology: 01/20 abdomen: No bowel obstruction is seen. Possible mild colitis mid to distal sigmoid colon. Consult: Dr. Mcknight documented that a mild colitis is not ruled out but appears to be less likely, given the rapid resolution of diarrhea and benign abdominal exam. An infectious cause is therefor felt to be more likely. Treatment: Medication: Patient got IV and PO Levaquin and IV Rocephin In your professional opinion, can you please further specify the following regarding the colitis, if known? Type Cause Any related complications Other, please specify Unable to determine MTDD
== END 2018-01-23 14:15 | disposition home or self-care (01) | DRG 392 ==
LOC: EC 10:39 → 5ONC 13:29
PROVIDERS: ADMIT Internal Medicine; ATTEND Internal Medicine
DX: K52.9 Noninfective gastroenteritis and colitis, unspecified (principal); C34.12 Malignant neoplasm of upper lobe, left bronchus or lung; J90 Pleural effusion, not elsewhere classified; J98.11 Atelectasis; E78.5 Hyperlipidemia, unspecified; F32.9 Major depressive disorder, single episode, unspecified; G43.909 Migraine, unspecified, not intractable, without status migrainosus; G89.29 Other chronic pain; J44.9 Chronic obstructive pulmonary disease, unspecified; K21.9 Gastro-esophageal reflux disease without esophagitis; M19.90 Unspecified osteoarthritis, unspecified site; M79.7 Fibromyalgia; E27.9 Disorder of adrenal gland, unspecified; K44.9 Diaphragmatic hernia without obstruction or gangrene; R32 Unspecified urinary incontinence; M54.9 Dorsalgia, unspecified; Z79.51 Long term (current) use of inhaled steroids; Z79.899 Other long term (current) drug therapy; Z79.52 Long term (current) use of systemic steroids; Z79.891 Long term (current) use of opiate analgesic; R06.00 Dyspnea, unspecified; Z86.73 Personal history of transient ischemic attack (TIA), and cerebral infarction without residual deficits; Z87.891 Personal history of nicotine dependence; Z92.21 Personal history of antineoplastic chemotherapy; Z92.3 Personal history of irradiation; Z87.01 Personal history of pneumonia (recurrent); Z80.9 Family history of malignant neoplasm, unspecified
CPT/HCPCS: 36415; 71046; 74177; 80053; 81001; 83605; 85025; 85610; 85730; 87040; 87070; 87086; 87205; 93005; 94640; 96365; 96367; 96375; 96376; 99291

== ENCOUNTER → 2018-02-01 | Outpatient (CLI) | payer MEDICARE, OTHER ==
--- NOTE | 2018-02-01 22:19 | MR ---
EXAMINATION TYPE: MR brain wo/w con DATE OF EXAM: 02/01/2018 COMPARISON: 07/27/2012 HISTORY: Hx of Lung CA, Headaches, Dizzy TECHNIQUE: Multiplanar, multisequence images of the brain and brainstem is performed without and with IV contras t, utilizing 5 mL intravenous Gadavist . FINDINGS: There is some cerebral cortical atrophy. There is no mass effect nor midline shift. There i s no sign of intracranial hemorrhage. There is patchy increased signal in the periventricular white m atter on the T2 and FLAIR images. There are are multiple small foci of the arellano-white matter junction of both cerebral hemispheres. Ventricles have normal size. There are small foci of increased signal in the brainstem on the FLAIR images. Sella turcica appears normal. There is no evidence of cortical infarct. There is no pathologic enhancement. IMPRESSION: Cerebral atrophy. White matter changes in both cerebral hemispheres show some progression compared to old exam and are consistent with chronic small vessel ischemia. Demyelinating disease is possible. No evidence of metastatic disease.
== END | disposition home or self-care (01) ==
LOC: RADMRIMAIN 19:00
PROVIDERS: ATTEND Internal Medicine Hematology & Oncology
DX: G31.9 Degenerative disease of nervous system, unspecified (principal); R90.82 White matter disease, unspecified; C34.12 Malignant neoplasm of upper lobe, left bronchus or lung
CPT/HCPCS: 70553; A9581

== ENCOUNTER → 2018-07-26 | Outpatient (CLI) | payer MEDICARE, OTHER ==
[2018-07-26 13:19] LABS: Blood Urea Nitrogen 18 mg/dL (7-17)
--- NOTE | 2018-07-26 15:06 | CT ---
EXAMINATION TYPE: CT chest w con DATE OF EXAM: 07/26/2018 COMPARISON: PET/CT 03/10/2018 and 11/04/2017 HISTORY: 63-year-old female lung cancer, observation for suspected metastases, Follow up scan per pat ient TECHNIQUE: Contiguous axial scanning of the chest after the administration of 100 mL of Isovue 300. Coronal/sagittal reconstructions performed. CT DLP: 193.6mGycm. Automatic exposure control utilized for a dose reduction. FINDINGS: Heart normal size without pericardial effusion. Aorta normal caliber with mild arthritic arch calcifications and conventional arch vessel branching a natomy. No thoracic lymphadenopathy by CT size criteria. Calcified lymph nodes are present in the left infrah ilar region suggesting prior granulomatous disease. Redemonstrated spiculated mass left upper lobe measuring 2.5 x 2.4 cm versus approximately 3.0 x 2.6 cm on 03/10/2018 and 2.9 x 2.4 cm unfortunately 2018 overall smaller from prior exams. No consolidation or pleural effusion. No new suspicious pulmonary nodule identified at this time. Redemonstrated tissue density mass of the left adrenal gland measuring up to 4.2 cm suggesting a myel olipoma. Scattered calcified granulomas within the spleen. Superior endplate deformity of T4 with mild overall height loss appears new from the patient's 03/10/20 18 PET/CT. Superior endplate deformity of L2 is new from patient's prior PET/CT. Inferior compression fracture of T5 redemonstrated but now shows a horizontally oriented cleft of air . Minimal anterior wedging of T7 is unchanged. IMPRESSION: 1. Stable to slightly smaller spiculated mass in the left upper lobe currently measuring 2.5 x 2.4 cm versus 3.0 x 2.6 cm, previously. Findings suggest site of treated disease. No evident disease recurr ence or metastases. 2. Vertebral compression deformities. Minimal, chronic T7 anterior wedging. While the inferior endpla te compression deformity of T5 was present previously, there is a new horizontal cleft of air here th at could represent Kummel's disease. 3. New superior endplate deformities of T4 and L2 as compared to 03/10/2018 suggest possible acute or s ubacute endplate fractures.
== END | disposition home or self-care (01) ==
LOC: RADCTMAIN 12:38
PROVIDERS: ATTEND Internal Medicine Hematology & Oncology
DX: Z03.89 Encounter for observation for other suspected diseases and conditions ruled out (principal); R91.8 Other nonspecific abnormal finding of lung field; M43.8X4 Other specified deforming dorsopathies, thoracic region; C34.12 Malignant neoplasm of upper lobe, left bronchus or lung
CPT/HCPCS: 82565; 84520; 71260; 36415; Q9967

== ENCOUNTER 2018-09-13 15:53 | Inpatient (IN) | payer MEDICARE, OTHER ==
[2018-09-13] MEDS ORDERED: IPRATROPIUM 0.5 MG/2.5 ML NEBU INHALATION STA (16:30)
[2018-09-13] MEDS ORDERED: methylPREDNISolone SOD SUCCI 125 MG/2 ML VIAL IV STA (16:30)
[2018-09-13] MEDS ORDERED: FUROSEMIDE 10 MG/ML 4 ML VIAL IV STA (16:30)
[2018-09-13] MEDS ORDERED: ALBUTEROL NEBULIZED 2.5 MG/3 ML INHALATION STA (16:30)
--- NOTE | 2018-09-13 16:34 | ED ---
General Adult HPI - General Chief complaint: Shortness of Breath Stated complaint: MARIANNA Time Seen by Provider: 09/13/18 16:00 Source: patient, EMS, RN notes reviewed Mode of arrival: EMS Limitations: no limitations - History of Present Illness Initial comments: This is a 63-year-old female who has a past medical history significant for stage III lung cancer and COPD. Patient comes in to the emergency department today complaining of shortness of breath for about a week. Patient states progressively work. Patient also states that the swelling in the legs are worse than normal. Patient denies any fever but states she has been coughing quite a bit. Patient denies any sputum production. Patient denies any chest pain pressure or heaviness. Patient denies headache patient denies numbness weakness. Patient denies any abdominal pain patient denies nausea vomiting diarrhea. Patient states she's been taking breathing treatments at home but they have not been helpful. Patient states she gets up and ambulates her pulse ox drops to about 88%. - Related Data Home Medications Medication Instructions Recorded Confirmed Albuterol Inhaler [Ventolin Hfa 2 puff INHALATION RT-QID PRN 12/03/13 09/13/18 Inhaler] Cevimeline [Evoxac] 30 mg PO BID 12/03/13 09/13/18 Escitalopram [Lexapro] 20 mg PO DAILY 12/03/13 09/13/18 Esomeprazole Magnesium [NexIUM] 40 mg PO BID 12/03/13 09/13/18 oxyCODONE-APAP 10-325MG [Percocet 1 tab PO Q6H PRN 09/05/16 09/13/18 10-325 mg] Albuterol Nebulized [Ventolin 2.5 mg INHALATION RT-QID PRN 02/23/17 09/13/18 Nebulized] Budesonide-Formot 160-4.5 Mcg 2 puff INHALATION RT-BID 02/23/17 09/13/18 [Symbicort 160-4.5 Mcg Inhaler] Ondansetron Odt [Zofran ODT] 8 mg PO Q6H PRN 02/23/17 09/13/18 Prochlorperazine [Compazine] 10 mg PO Q6H PRN 02/23/17 09/13/18 ALPRAZolam [Xanax] 0.25 mg PO Q6H PRN 01/20/18 09/13/18 Cholecalciferol [Vitamin D3] 1,000 unit PO DAILY 09/13/18 09/13/18 Cyanocobalamin (Vitamin B-12) 1,000 mcg PO DAILY 09/13/18 09/13/18 [Vitamin B-12] Folic Acid 0.4 mg PO DAILY 09/13/18 09/13/18 Furosemide [Lasix] 20 mg PO DAILY PRN 09/13/18 09/13/18 Levothyroxine Sodium [Synthroid] 25 mcg PO DAILY 09/13/18 09/13/18 Pyridoxine HCl (Vitamin B6) 100 mg PO DAILY 09/13/18 09/13/18 [Vitamin B-6] Tolterodine Tartrate [Detrol LA] 4 mg PO DAILY 09/13/18 09/13/18 Umeclidinium [place] [Incruse 1 puff INHALATION RT-DAILY 09/13/18 09/13/18 Ellipta] guaiFENesin [Mucinex] 600 mg PO DAILY 09/13/18 09/13/18 Previous Rx's Medication Instructions Recorded Morphine Sulfate [Ms Contin] 30 mg PO BID #60 tablet.er 03/11/15 Allergies Allergy/AdvReac Type Severity Reaction Status Date / Time No Known Allergies Allergy Verified 09/13/18 15:55 Review of Systems ROS Statement: Those systems with pertinent positive or pertinent negative responses have been documented in the HPI. ROS Other: All systems not noted in ROS Statement are negative. Past Medical History Past Medical History: Cancer, COPD, CVA/TIA, Fibromyalgia, GERD/Reflux, Hyperlip idemia, Osteoarthritis (OA), Pneumonia Additional Past Medical History / Comment(s): Non-small cell lung cancer stage 3 adenocarcinoma, COPD, fibromyalgia, acid reflux, hyperlipidemia, osteoarthritis, adrenal mass that has remained stable over some time, TIA history of, hiatal hernia, chronic constipation, chronic back pain, degenerative arthritis History of Any Multi-Drug Resistant Organisms: None Reported Additional Past Surgical History / Comment(s): SINUS surgery Past Anesthesia/Blood Transfusion Reactions: No Reported Reaction Past Psychological History: Depression Smoking Status: Former smoker Past Alcohol Use History: None Reported Past Drug Use History: Marijuana - Past Family History Mother Family Medical History: Cancer Father Family Medical History: Cancer General Exam - General Exam Comments Initial Comments: GENERAL: Patient is well-developed and well-nourished. Patient is nontoxic and well- hydrated and is in smile distress. ENT: Neck is soft and supple. No significant lymphadenopathy is noted. Oropharynx is clear. Moist mucous membranes. Neck has full range of motion without eliciting any pain. EYES: The sclera were anicteric and conjunctiva were pink and moist. Extraocular movements were intact and pupils were equal round and reactive to light. Eyelids were unremarkable. PULMONARY: Crackles bilaterally with symmetric very wheezing. CARDIOVASCULAR: There is a regular rate and rhythm without any murmurs gallops or rubs. ABDOMEN: Soft and nontender with normal bowel sounds. No palpable organomegaly was noted. There is no palpable pulsatile mass. SKIN: Skin is clear with no lesions or rashes and otherwise unremarkable. NEUROLOGIC: Patient is alert and oriented x3. Cranial nerves II through XII are grossly intact. Motor and sensory are also intact. Normal speech, volume and content. Symmetrical smile. MUSCULOSKELETAL: Normal extremities with adequate strength and full range of motion. 2+ edema bilaterally LYMPHATICS: No significant lymphadenopathy is noted PSYCHIATRIC: Normal psychiatric evaluation. Limitations: no limitations Course Vital Signs 09/13/18 09/13/18 09/13/18 15:55 15:58 16:00 Temperature 98.4 F Pulse Rate 71 86 Respiratory 18 24 Rate Blood Pressure 164/90 164/90 O2 Sat by Pulse 98 100 100 Oximetry 09/13/18 09/13/18 09/13/18 16:30 17:00 17:11 Temperature Pulse Rate 85 81 82 Respiratory 20 20 Rate Blood Pressure 144/86 152/89 O2 Sat by Pulse 99 99 Oximetry 09/13/18 09/13/18 09/13/18 17:30 17:32 17:40 Temperature Pulse Rate 88 88 90 Respiratory 19 Rate Blood Pressure 158/84 O2 Sat by Pulse 99 Oximetry Medical Decision Making - Medical Decision Making EKG shows normal sinus rhythm at 80 bpm AR interval 212 QRS 76 QT interval 364 QTC is 419. Patient's EKG shows no ST segment elevation or depression. Patient does have Q waves in inferior leads. These were seen on an old EKG. Chest x-ray shows no acute abnormality. Patient received 3 breathing treatments in the emergency department and steroids. However. Her move the option patient drops her sats down into the 80s. I spoke with Dr. Chang he agreed to admit the patient admitted the patient I wrote admitting orders I continued steroids and albuterol on the floor. I consulted pulmonary - Lab Data Result diagrams: 09/13/18 17:00 09/13/18 17:00 Lab Results 09/13/18 09/13/18 09/13/18 Range/Units 17:00 17:00 17:00 WBC 12.3 H (3.8-10.6) k/uL RBC 4.17 (3.80-5.40) m/uL Hgb 13.3 (11.4-16.0) gm/dL Hct 40.8 (34.0-46.0) % MCV 97.8 (80.0-100.0) fL MCH 31.8 (25.0-35.0) pg MCHC 32.5 (31.0-37.0) g/dL RDW 15.0 (11.5-15.5) % Plt Count 334 (150-450) k/uL Neutrophils % 88 % Lymphocytes % 5 % Monocytes % 6 % Eosinophils % 1 % Basophils % 0 % Neutrophils # 10.8 H (1.3-7.7) k/uL Lymphocytes # 0.6 L (1.0-4.8) k/uL Monocytes # 0.7 (0-1.0) k/uL Eosinophils # 0.1 (0-0.7) k/uL Basophils # 0.0 (0-0.2) k/uL PT (9.0-12.0) sec INR (<1.2) APTT (22.0-30.0) sec Sodium 136 L (137-145) mmol/L Potassium 4.3 (3.5-5.1) mmol/L Chloride 98 (98-107) mmol/L Carbon Dioxide 35 H (22-30) mmol/L Anion Gap 3 mmol/L BUN 15 (7-17) mg/dL Creatinine 0.61 (0.52-1.04) mg/dL Est GFR (CKD-EPI)AfAm >90 (>60 ml/min/1.73 sqM) Est GFR (CKD-EPI)NonAf >90 (>60 ml/min/1.73 sqM) Glucose 113 H (74-99) mg/dL Calcium 9.3 (8.4-10.2) mg/dL Magnesium 1.9 (1.6-2.3) mg/dL Total Bilirubin 0.7 (0.2-1.3) mg/dL AST 36 (14-36) U/L ALT 47 (9-52) U/L Alkaline Phosphatase 219 H (38-126) U/L Troponin I (0.000-0.034) ng/mL NT-Pro-B Natriuret Pep 244 pg/mL Total Protein 6.5 (6.3-8.2) g/dL Albumin 3.8 (3.5-5.0) g/dL 09/13/18 09/13/18 Range/Units 17:00 17:00 WBC (3.8-10.6) k/uL RBC (3.80-5.40) m/uL Hgb (11.4-16.0) gm/dL Hct (34.0-46.0) % MCV (80.0-100.0) fL MCH (25.0-35.0) pg MCHC (31.0-37.0) g/dL RDW (11.5-15.5) % Plt Count (150-450) k/uL Neutrophils % % Lymphocytes % % Monocytes % % Eosinophils % % Basophils % % Neutrophils # (1.3-7.7) k/uL Lymphocytes # (1.0-4.8) k/uL Monocytes # (0-1.0) k/uL Eosinophils # (0-0.7) k/uL Basophils # (0-0.2) k/uL PT 10.5 (9.0-12.0) sec INR 1.0 (<1.2) APTT 22.4 (22.0-30.0) sec Sodium (137-145) mmol/L Potassium (3.5-5.1) mmol/L Chloride (98-107) mmol/L Carbon Dioxide (22-30) mmol/L Anion Gap mmol/L BUN (7-17) mg/dL Creatinine (0.52-1.04) mg/dL Est GFR (CKD-EPI)AfAm (>60 ml/min/1.73 sqM) Est GFR (CKD-EPI)NonAf (>60 ml/min/1.73 sqM) Glucose (74-99) mg/dL Calcium (8.4-10.2) mg/dL Magnesium (1.6-2.3) mg/dL Total Bilirubin (0.2-1.3) mg/dL AST (14-36) U/L ALT (9-52) U/L Alkaline Phosphatase (38-126) U/L Troponin I <0.012 (0.000-0.034) ng/mL NT-Pro-B Natriuret Pep pg/mL Total Protein (6.3-8.2) g/dL Albumin (3.5-5.0) g/dL Critical Care Time Critical Care Time: Yes Total Critical Care Time: 35 Disposition Clinical Impression: Acute exacerbation of chronic obstructive airways disease, Pedal edema Disposition: ADMITTED IP TO THIS HOSP Referrals: Steffi Benoit MD [Primary Care Provider] - 1-2 days Time of Disposition: 18:37
[2018-09-13] MEDS ORDERED: oxyCODONE-APAP 10-325MG 1 EACH TAB PO STA (17:16)
[2018-09-13] MEDS ORDERED: MORPHINE SULFATE ER 30 MG TABLET PO STA (17:16)
[2018-09-13 17:28] LABS: Basophils % (A) 0 %; Eosinophils # (A) 0.1 k/uL (0-0.7); Eosinophils % (A) 1 %; HCT 40.8 % (34.0-46.0); HGB 13.3 gm/dL (11.4-16.0); Lymphocytes # (A) 0.6 k/uL (1.0-4.8); Lymphocytes % (A) 5 %; MCH 31.8 pg (25.0-35.0); MCHC 32.5 g/dL (31.0-37.0); MCV 97.8 fL (80.0-100.0); Mean Platelet Volume 6.4; Monocytes # (A) 0.7 k/uL (0-1.0); Monocytes % (A) 6 %; Neutrophils # (A) 10.8 k/uL (1.3-7.7); Neutrophils % (A) 88 %; Platelet Count 334 k/uL (150-450); RBC 4.17 m/uL (3.80-5.40); WBC 12.3 k/uL (3.8-10.6)
[2018-09-13 17:31] LABS: ALT 47 U/L (9-52); AST 36 U/L (14-36); Albumin 3.8 g/dL (3.5-5.0); Alkaline Phosphatase 219 U/L (38-126); Anion Gap 3 mmol/L; Blood Urea Nitrogen 15 mg/dL (7-17); Calcium 9.3 mg/dL (8.4-10.2); Carbon Dioxide 35 mmol/L (22-30); Chloride 98 mmol/L (98-107); Glucose 113 mg/dL (74-99); Magnesium 1.9 mg/dL (1.6-2.3); Potassium 4.3 mmol/L (3.5-5.1); Sodium 136 mmol/L (137-145); Total Bilirubin 0.7 mg/dL (0.2-1.3); Total Protein 6.5 g/dL (6.3-8.2)
[2018-09-13 17:36] LABS: Partial Thromboplastin Time 22.4 sec (22.0-30.0); Prothrombin Time 10.5 sec (9.0-12.0)
--- NOTE | 2018-09-13 18:14 | XR ---
EXAMINATION TYPE: XR chest 2V DATE OF EXAM: 09/13/2018 COMPARISON: 07/25/2018 HISTORY: Difficulty breathing TECHNIQUE: Frontal and lateral views of the chest are obtained. FINDINGS: There is a small infiltrate at the lateral left lung base. The other lung amezcua are fairl y clear. There is no heart failure. Heart size is normal. Thoracic aorta is atheromatous. There are c hest leads. There is osteopenia and compression deformity of several thoracic vertebra. IMPRESSION: There is a chronic infiltrate lateral left lung base unchanged compared to old exam. No heart failure.
[2018-09-14] MEDS: methylPREDNISolone SOD SUCCI 125 MG/2 ML VIAL IV SCH ×5 (00:05→21:30)
[2018-09-14] MEDS ORDERED: oxyCODONE-APAP 10-325MG 1 EACH TAB PO STA (04:36)
[2018-09-14] MEDS ORDERED: FUROSEMIDE 10 MG/ML 2 ML VIAL IV ONE (06:35)
[2018-09-14] MEDS: IPRATROPIUM-ALBUTEROL 3 ML NEB INHALATION PRN ×2 (07:45→21:15)
[2018-09-14] MEDS ORDERED: FUROSEMIDE 20 MG TAB PO PRN (08:09)
[2018-09-14] MEDS ORDERED: PROCHLORPERAZINE 10 MG TAB PO PRN (08:09)
[2018-09-14] MEDS ORDERED: ONDANSETRON ODT 8 MG TAB.RAPDIS PO PRN (08:09)
[2018-09-14] MEDS ORDERED: ALPRAZolam 0.25 MG TAB PO PRN (08:09)
[2018-09-14] MEDS: CEVIMELINE 30 MG CAP PO SCH ×2 (09:06→22:01)
[2018-09-14] MEDS: MORPHINE SULFATE ER 30 MG TABLET PO SCH ×2 (09:06→21:36)
[2018-09-14] MEDS: guaiFENesin 600 MG TABLET.ER PO SCH (09:06)
[2018-09-14] MEDS: ESCITALOPRAM 20 MG TAB PO SCH (09:06)
[2018-09-14] MEDS: CHOLECALCIFEROL 1,000 UNIT TAB PO SCH (09:07)
[2018-09-14] MEDS: CYANOCOBALAMIN 500 MCG TAB PO SCH ×2 (09:07→21:30)
[2018-09-14] MEDS: LEVOTHYROXINE 25 MCG TAB PO SCH (09:07)
[2018-09-14] MEDS: FOLIC ACID 1 MG TAB PO SCH (09:08)
--- NOTE | 2018-09-14 09:40 | P.HPIM ---
History of Present Illness H&P Date: 09/14/18 This is a 63-year-old female patient of Dr. Benoit. Patient presented to the ER with complaints of increased shortness of breath. Patient reports that over the past week she's had increased shortness of breath with activity. Patient denies any significant sputum production. Patient also states she's had increased lower peripheral edema. She does have a past medical history of lung cancer stage III when she follows with Dr. Posey. Patient reports that her last was proximally 1 month ago with immunotherapy. Patient also went for routine CT in July. Patient is home O2 dependent with 2 L. Additional medical history includes COPD, CVA, fibromyalgia, GERD, hyperlipidemia, osteoarthritis, pneumonia, chronic back pain, constipation, hiatal hernia and depression. Patient also has a smoking history of half a pack per day for 30 years. Patient has stopped smoking at this time. Chest x-ray completed showing chronic infiltrate left lateral lung base unchanged compared to old exam no heart failure. EKG completed showing normal sinus rhythm, right atrial enlargement. At this time pulmonary and oncology service is consulted. Patient started on IV Solu-Medrol. Patient reports significant improvement with shortness of breath. Patient denies chest pain. Patient denies nausea vomiting or diarrhea. Patient denies any urinary burning or frequency Review of Systems Please refer to HPI otherwise unremarkable Past Medical History Past Medical History: Cancer, COPD, CVA/TIA, Fibromyalgia, GERD/Reflux, Hyperl ipidemia, Osteoarthritis (OA), Pneumonia Additional Past Medical History / Comment(s): Non-small cell lung cancer stage 3 adenocarcinoma, COPD, fibromyalgia, acid reflux, hyperlipidemia, osteoarthritis, adrenal mass that has remained stable over some time, TIA history of, hiatal hernia, chronic constipation, chronic back pain, degenerative arthritis History of Any Multi-Drug Resistant Organisms: None Reported Additional Past Surgical History / Comment(s): SINUS surgery Past Anesthesia/Blood Transfusion Reactions: No Reported Reaction Past Psychological History: Depression Smoking Status: Former smoker Past Alcohol Use History: None Reported Additional Past Alcohol Use History / Comment(s): smokes < 1/2 PPD for past 30 yrs Past Drug Use History: Marijuana - Past Family History Mother Family Medical History: Cancer Father Family Medical History: Cancer Medications and Allergies Home Medications Medication Instructions Recorded Confirmed Type Albuterol Inhaler [Ventolin Hfa 2 puff INHALATION RT-QID PRN 12/03/13 09/13/18 History Inhaler] Cevimeline [Evoxac] 30 mg PO BID 12/03/13 09/13/18 History Escitalopram [Lexapro] 20 mg PO DAILY 12/03/13 09/13/18 History Esomeprazole Magnesium [NexIUM] 40 mg PO BID 12/03/13 09/13/18 History Morphine Sulfate [Ms Contin] 30 mg PO BID #60 tablet.er 03/11/15 09/13/18 Rx oxyCODONE-APAP 10-325MG [Percocet 1 tab PO Q6H PRN 09/05/16 09/13/18 History 10-325 mg] Albuterol Nebulized [Ventolin 2.5 mg INHALATION RT-QID PRN 02/23/17 09/13/18 History Nebulized] Budesonide-Formot 160-4.5 Mcg 2 puff INHALATION RT-BID 02/23/17 09/13/18 History [Symbicort 160-4.5 Mcg Inhaler] Ondansetron Odt [Zofran ODT] 8 mg PO Q6H PRN 02/23/17 09/13/18 History Prochlorperazine [Compazine] 10 mg PO Q6H PRN 02/23/17 09/13/18 History ALPRAZolam [Xanax] 0.25 mg PO Q6H PRN 01/20/18 09/13/18 History Cholecalciferol [Vitamin D3] 1,000 unit PO DAILY 09/13/18 09/13/18 History Cyanocobalamin (Vitamin B-12) 1,000 mcg PO BID 09/13/18 09/13/18 History [Vitamin B-12] Folic Acid 0.4 mg PO DAILY 09/13/18 09/13/18 History Furosemide [Lasix] 20 mg PO DAILY PRN 09/13/18 09/13/18 History Levothyroxine Sodium [Synthroid] 25 mcg PO DAILY 09/13/18 09/13/18 History Umeclidinium [place] [Incruse 1 puff INHALATION RT-DAILY 09/13/18 09/13/18 History Ellipta] guaiFENesin [Mucinex] 600 mg PO DAILY 09/13/18 09/13/18 History Allergies Allergy/AdvReac Type Severity Reaction Status Date / Time No Known Allergies Allergy Verified 09/13/18 15:55 Physical Exam Vitals: Vital Signs Temp Pulse Pulse Resp BP BP Pulse Ox 09/14/18 08:00 81 16 09/14/18 07:54 94 09/14/18 07:46 88 09/13/18 21:29 98.1 F 81 16 158/83 98 09/13/18 20:30 16 09/13/18 19:45 97.9 F 09/13/18 19:00 89 16 122/99 97 09/13/18 18:30 98.2 F 89 16 143/87 98 09/13/18 18:00 87 19 164/90 99 09/13/18 17:40 90 09/13/18 17:32 88 09/13/18 17:30 88 19 158/84 99 09/13/18 17:11 82 09/13/18 17:00 81 20 152/89 99 09/13/18 16:30 85 20 144/86 99 09/13/18 16:00 86 24 164/90 100 09/13/18 15:58 100 09/13/18 15:55 98.4 F 71 18 164/90 98 Intake and Output 09/13/18 09/14/18 09/14/18 22:59 06:59 14:59 Other: # Voids 2 1 1 Weight 57.153 kg Head normocephalic Neck supple Lungs diminished bilaterally with expiratory wheezing Heart regular rate and rhythm S1-S2, no rub or gallop Abdomen is soft nontender nondistended positive bowel sounds no hepatosplenomegaly Extremities no edema Neuro alert and orientated to 3 Results CBC & Chem 7: 09/13/18 17:00 09/13/18 17:00 Labs: Abnormal Lab Results - Last 24 Hours (Table) 09/13/18 09/13/18 Range/Units 17:00 17:00 WBC 12.3 H (3.8-10.6) k/uL Neutrophils # 10.8 H (1.3-7.7) k/uL Lymphocytes # 0.6 L (1.0-4.8) k/uL Sodium 136 L (137-145) mmol/L Carbon Dioxide 35 H (22-30) mmol/L Glucose 113 H (74-99) mg/dL Alkaline Phosphatase 219 H (38-126) U/L Thrombosis Risk Factor Assmnt - Choose All That Apply Any of the Below Risk Factors Present?: Yes Each Factor Represents 1 point: Abnormal pulmonary function (COPD), Obesity (BMI >25), Serious lung disease incl. pneumonia (< 1month), Swollen legs (current) Other Risk Factors: Yes Each Risk Factor Represents 2 Points: Age 61-74 years, Malignancy Thrombosis Risk Factor Assessment Total Risk Factor Score: 8 Thrombosis Risk Factor Assessment Level: High Risk Assessment and Plan Assessment: 1. Shortness of breath related to COPD exacerbation. Chest x-ray completed showing chronic infiltrate lateral left lung base unchanged compared to old exam . Normal heart failure. Dr. Ace consulted for pulmonary services. Patient started on IV steroids. Continue DuoNeb breathing treatment 2. Non-small cell lung cancer stage III adenocarcinoma. Patient follows with Dr. Posey oncology services. Patient reports that she had immunotherapy prox imally 1 month ago. Pathology services have been consulted 3. History of COPD 4. History of CVA 5. History of hyperlipidemia 6. History of fibromyalgia 7. History of osteoarthritis 8. History of depression 9. ex-Smoker. Patient smoked approximately half pack per day for 30 years DVT prophylaxis Lovenox. GI prophylaxis Protonix Time with Patient: Greater than 30 (Greater than 60% of the total time spent in counseling and coordination of care. I performed an examination of the patient and discussed their management with the Nurse Practitioner. I have reviewed the Nurse Practitioner's notes and agree with the documented findings and plan of care)
[2018-09-14 10:53] LABS: Basophils % (A) 0 %; Eosinophils % (A) 0 %; HCT 41.8 % (34.0-46.0); HGB 13.5 gm/dL (11.4-16.0); Lymphocytes # (A) 0.3 k/uL (1.0-4.8); Lymphocytes % (A) 4 %; MCH 31.7 pg (25.0-35.0); MCHC 32.3 g/dL (31.0-37.0); MCV 98.3 fL (80.0-100.0); Macrocytosis Slight; Mean Platelet Volume 5.9; Monocytes # (A) 0.5 k/uL (0-1.0); Monocytes % (A) 6 %; Neutrophils # (A) 7.1 k/uL (1.3-7.7); Neutrophils % (A) 89 %; Platelet Count 347 k/uL (150-450); RBC 4.25 m/uL (3.80-5.40); RDW 15.3 % (11.5-15.5); WBC 8.1 k/uL (3.8-10.6)
[2018-09-14 11:11] LABS: ALT 47 U/L (9-52); AST 26 U/L (14-36); Albumin 3.6 g/dL (3.5-5.0); Alkaline Phosphatase 215 U/L (38-126); Anion Gap 4 mmol/L; Blood Urea Nitrogen 19 mg/dL (7-17); Calcium 9.2 mg/dL (8.4-10.2); Carbon Dioxide 35 mmol/L (22-30); Chloride 98 mmol/L (98-107); Glucose 157 mg/dL (74-99); Potassium 3.7 mmol/L (3.5-5.1); Sodium 137 mmol/L (137-145); Total Bilirubin 0.6 mg/dL (0.2-1.3); Total Protein 6.2 g/dL (6.3-8.2)
--- NOTE | 2018-09-14 12:09 | P.CNPUL ---
History of Present Illness Consult date: 09/14/18 Requesting physician: Glenys Chang Reason for consult: dyspnea Chief complaint: Shortness of breath, weakness, myalgias History of present illness: This is a very pleasant 63-year-old female patient who follows with Dr. Benoit as her primary care physician. She has a history of CVA/TIA, fibromyalgia, gastroesophageal reflux disease, hyperlipidemia, hypothyroidism, chronic back pain, depression. She also has a history of chronic tobacco dependence, oxygen dependent chronic obstructive pulmonary disease with an FEV1 value of 56% of predicted, and non-small cell lung cancer stage III adenocarcinoma. She follows with Dr. Fan in our office. This was diagnosed by an FNA of a left upper lobe lesion by IR in November 2016. She had received concurrent chemoradiation with subsequent additional chemotherapy and then placed on maintenance mmunotherapy of Imfinzi back in December 2017. Her last PET scan in March 2018 revealed continued left upper lobe mass with irregular margins extending to the pleural surface, spiculated appearance but was stable compared to previous and October 2017. The SUV value was only 1.7. Subsequent computed tomography scan of the chest in July 2018 revealed a stable and slightly smaller spiculated mass of the left upper lobe measuring 2.5 x 2.4 cm versus 3.0 x 2.6 previous. No evidence of recurrence or metastasis. Approximately 2-3 weeks ago the patient had seen Dr. Posey. She was having ongoing issues with nausea vomiting profound weakness and fatigue. She decided to stop taking the immunotherapy. She had been treated for his COPD exacerbation 08/22/[address] office [address] Fan where she received steroids and Bactrim. She did improve for the first week or so. She presented to the emergency room yesterday with complaints of increasing shortness of breath cough and congestion. She did have some lower extremity edema. She was still quite weak and fatigued. Chest x-ray revealed some small infiltrate of the left lung base, which is chronic in nature. White count 12.3. Hemoglobin 13.3. Creatinine 0.61. ProBNP 244. She's been ini tiated on DuoNeb inhalations, Symbicort, IV Solu-Medrol. She was given IV diuretics as well. Presently, she is resting quite comfortably in bed. She is awake and alert in no acute distress. She is breathing a bit easier today as compared to yesterday. Not quite back to her baseline. She has a loose nonproductive congestive cough, some dyspnea on exertion. Review of Systems REVIEW OF SYSTEMS: CONSTITUTIONAL: Well-nourished 63-year-old female Denies any recent significant weight loss or weight gain. EYES: Denies change in vision. EARS, NOSE, MOUTH, THROAT: Denies headaches, denies sore throat. CARDIOVASCULAR: Denies chest pain, palpitations or syncopal episodes. RESPIRATORY: Positive for shortness of breath, cough, congestion without hemoptysis. GASTROINTESTINAL: Denies change in appetite, denies abdominal pain GENITOURINARY: Denies hematuria, denies infections. MUSKULOSKELETAL: Positive for muscle fatigue and weakness, generalized malaise INTEGUMENTARY: Denies rash, denies eczema. NEUROLOGICAL: Denies recent memory loss, no recent seizure activity. PSYCHIATRIC: Positive for depression. HEMATOLOGIC/LYMPHATIC: Denies anemia, denies enlarged lymph nodes. Eyes: Past Medical History Past Medical History: Cancer, COPD, CVA/TIA, Fibromyalgia, GERD/Reflux, Hyperlipidemia, Osteoarthritis (OA), Pneumonia Additional Past Medical History / Comment(s): Non-small cell lung cancer stage 3 adenocarcinoma, COPD, fibromyalgia, acid reflux, hyperlipidemia, osteoarthritis, adrenal mass that has remained stable over some time, TIA history of, hiatal hernia, chronic constipation, chronic back pain, degenerative arthritis History of Any Multi-Drug Resistant Organisms: None Reported Additional Past Surgical History / Comment(s): SINUS surgery Past Anesthesia/Blood Transfusion Reactions: No Reported Reaction Past Psychological History: Depression Smoking Status: Former smoker Past Alcohol Use History: None Reported Additional Past Alcohol Use History / Comment(s): smokes < 1/2 PPD for past 30 yrs Past Drug Use History: Marijuana - Past Family History Mother Family Medical History: Cancer Father Family Medical History: Cancer Medications and Allergies Home Medications Medication Instructions Recorded Confirmed Type Albuterol Inhaler [Ventolin Hfa 2 puff INHALATION RT-QID PRN 12/03/13 09/13/18 History Inhaler] Cevimeline [Evoxac] 30 mg PO BID 12/03/13 09/13/18 History Escitalopram [Lexapro] 20 mg PO DAILY 12/03/13 09/13/18 History Esomeprazole Magnesium [NexIUM] 40 mg PO BID 12/03/13 09/13/18 History Morphine Sulfate [Ms Contin] 30 mg PO BID #60 tablet.er 03/11/15 09/13/18 Rx oxyCODONE-APAP 10-325MG [Percocet 1 tab PO Q6H PRN 09/05/16 09/13/18 History 10-325 mg] Albuterol Nebulized [Ventolin 2.5 mg INHALATION RT-QID PRN 02/23/17 09/13/18 History Nebulized] Budesonide-Formot 160-4.5 Mcg 2 puff INHALATION RT-BID 02/23/17 09/13/18 History [Symbicort 160-4.5 Mcg Inhaler] Ondansetron Odt [Zofran ODT] 8 mg PO Q6H PRN 02/23/17 09/13/18 History Prochlorperazine [Compazine] 10 mg PO Q6H PRN 02/23/17 09/13/18 History ALPRAZolam [Xanax] 0.25 mg PO Q6H PRN 01/20/18 09/13/18 History Cholecalciferol [Vitamin D3] 1,000 unit PO DAILY 09/13/18 09/13/18 History Cyanocobalamin (Vitamin B-12) 1,000 mcg PO BID 09/13/18 09/13/18 History [Vitamin B-12] Folic Acid 0.4 mg PO DAILY 09/13/18 09/13/18 History Furosemide [Lasix] 20 mg PO DAILY PRN 09/13/18 09/13/18 History Levothyroxine Sodium [Synthroid] 25 mcg PO DAILY 09/13/18 09/13/18 History Umeclidinium Hines [Incruse 1 puff INHALATION RT-DAILY 09/13/18 09/13/18 History Ellipta] guaiFENesin [Mucinex] 600 mg PO DAILY 09/13/18 09/13/18 History Allergies Allergy/AdvReac Type Severity Reaction Status Date / Time No Known Allergies Allergy Verified 09/13/18 15:55 Physical Exam Vitals: Vital Signs Temp Pulse Pulse Resp BP BP Pulse Ox 09/14/18 08:05 98.5 F 85 16 153/78 99 09/14/18 08:00 81 16 09/14/18 07:54 94 09/14/18 07:46 88 09/13/18 21:29 98.1 F 81 16 158/83 98 09/13/18 20:30 16 09/13/18 19:45 97.9 F 09/13/18 19:00 89 16 122/99 97 09/13/18 18:30 98.2 F 89 16 143/87 98 09/13/18 18:00 87 19 164/90 99 09/13/18 17:40 90 09/13/18 17:32 88 09/13/18 17:30 88 19 158/84 99 09/13/18 17:11 82 09/13/18 17:00 81 20 152/89 99 09/13/18 16:30 85 20 144/86 99 09/13/18 16:00 86 24 164/90 100 09/13/18 15:58 100 09/13/18 15:55 98.4 F 71 18 164/90 98 Intake and Output 09/13/18 09/14/18 09/14/18 22:59 06:59 14:59 Intake Total 200 Balance 200 Intake: Oral 200 Other: # Voids 2 1 1 Weight 57.153 kg GENERAL EXAM: Alert, active, comfortable in no apparent distress. On 4 L nasal cannula HEAD: Normocephalic. EYES: Normal reaction of pupils, equal size. NOSE: Clear with pink turbinates. THROAT: No erythema or exudates. NECK: No masses, no JVD. CHEST: No chest wall deformity. LUNGS: Equal air entry with few scattered rhonchi, crackles in the bases. Diminished. CVS: S1 and S2 normal with no audible murmur, regular rhythm. ABDOMEN: No hepatosplenomegaly, normal bowel sounds, no guarding or rigidity. SPINE: No scoliosis or deformity SKIN: No rashes CENTRAL NERVOUS SYSTEM: No focal deficits, tone is normal in all 4 extremities. EXTREMITIES: There is no peripheral edema. No clubbing, no cyanosis. Peripheral pulses are intact. Results - Laboratory Findings CBC and BMP: 09/14/18 10:38 09/14/18 10:38 PT/INR, D-dimer PT 10.5 sec (9.0-12.0) 09/13/18 17:00 INR 1.0 (<1.2) 09/13/18 17:00 Abnormal lab findings: Abnormal Labs 09/13/18 09/13/18 09/14/18 17:00 17:00 10:38 WBC 12.3 H Neutrophils # 10.8 H Lymphocytes # 0.6 L 0.3 L Sodium 136 L Carbon Dioxide 35 H BUN Glucose 113 H Alkaline Phosphatase 219 H Total Protein 09/14/18 10:38 WBC Neutrophils # Lymphocytes # Sodium Carbon Dioxide 35 H BUN 19 H Glucose 157 H Alkaline Phosphatase 215 H Total Protein 6.2 L - Diagnostic Findings Chest x-ray: image reviewed Assessment and Plan Assessment: Impression: #1 Acute exacerbation of severe oxygen dependent chronic obstructive pulmonary disease, complicated by purulent tracheobronchitis. No clear evidence of pneumonia. #2 History of chronic tobacco dependence, states quit about 6 months ago. #3 History of stage III non-small cell lung cancer, adenocarcinoma diagnosed in November 2016. Status post chemoradiation with subsequent chemotherapy and eventual immunotherapy. Most recently on Imfinzi but having issues with profound weakness and fatigue. Most recent computed tomography scan from July 2018 showed stable and slightly smaller left upper lobe spiculated lesion currently measuring 2.5 x 2.4 cm. #4 History of CVA/TIA. #5 Hyperlipidemia. #6 Hypothyroidism. #7 Fibromyalgia. #8 Chronic pain syndrome. #9 History of depression. #10 History of marijuana use. Plan: The patient was seen and evaluated by Dr. Ace. Chest x-ray and labs were reviewed. We'll continue with the current treatment plan including DuoNeb inhal ations, Symbicort, IV Solu-Medrol. We'll add empiric antibiotics in the form of azithromycin. She is encouraged regarding continued complete smoking cessation. We will continue to titrate down the FiO2 as tolerated. We will increase her activity as tolerated. We will continue to follow and make further recommendations based on her clinical status. I, the cosigning physician, performed a history & physical examination of the patient. Lungs sounds with few scattered rhonchi, end expiratory wheeze, diminished. Maintaining good O2 saturations in the 90s on 4 L/m per nasal cannula. I discussed the assessment and plan of care with my nurse practitioner, Rosie Fay. I attest to the above consultation as dictated by her. Time with Patient: Greater than 30
[2018-09-14 12:51] LABS: Glucose,Whole Blood 242 mg/dL (75-99)
[2018-09-14] MEDS: INSULIN ASPART (NovoLOG) 100 UNIT/ML VIAL SQ SCH ×3 (14:17→21:29)
[2018-09-14 14:23] VITALS: BMI 25.4
[2018-09-14] MEDS ORDERED: HYDROmorphone 0.5 MG/0.5 ML SYRINGE IVP PRN (14:25)
--- NOTE | 2018-09-14 16:25 | P.CONS ---
History of Present Illness - Reason for Consult Consult date: 09/14/18 Lung Cancer Requesting physician: Karina Cobian - Chief Complaint Shortness of Breath and BLE Edema - History of Present Illness Ms. Blake is a pleasant female patient well known to our practive for treatment of her known stage IIIA Adenocarcinoma of the Lung, originally diagnosed in December 2016. Primary Oncologist Dr. Posey. In 2016, she was originally referred by Dr Benoit after CT Scan of chest was suggestive of a neoplastic process in L upper lobe. She presented to Dr Benoit with progressive weakness, lack of stamina, anorexia and weight loss of 40 Lbs over 6 months. 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 The patient C/O L shoulder pain and left upper chest wall pain X 4-6 months, as well as, diffuse headache and nausea X 2-3 months at the time of diagnosis. She smoked 1 PPD X 45 years, denied ETOH , resides with her partner of 38 years. On 12/13/16: PET Scan : Stage III-A disease, Bx: Adenocarcinoma, CT of head negative. Quit smoking. December 21 February 01, 2017 - Underwent Concurrent radiation Therapy to lung and Systemic Weekly Chrmotherapy with Carboplatin and Taxol. April 06, 2017 - May 2017 - Received Carboplatin and Almta x3 cycles. She was placed on Observation and remained stable from April 2017 to current. In November 2017, CT scan failed to show active or Metastatic disease, therefore she was placed on maintenance therapy with Imfinzi (Darvolumab), tolerating well with the exception of acute COPD and Bronchitis exacerbations. 03/2018 - Mental Status Changes and Increased body aches and MRI of Brain was negative for Metastatic Disease and PET Negative for active Disease. August 2018 - Continues on Maintenance Imfinizi and most recent CT Chest shows further reduction in the inactive malignancy The past three months patient has been struggling with increased weakness and fatigue, acute infections which she presents with acute mental status changes (treated with antibiotics and in past have quickly resolved to baseline). She now presents to Emergency department on 09/14/18 with complaints of increased shortness of breath that is worsened with activity, as well as increased Bilateral Lower Extremity edema. She wears 2Liters of oxygen at home. She has a known history of Depression, COPD, Recurrent COPD and Acute Bronchitis Exacerbations, Lifelong Tobacco Abuse, Hyperlipidema, CVA, Fibromyalgia, GERD, and progressive chronic illness myopathy and weakness. She has been on Immune therapy for over a year, will need to consider immune related events with hospitalizations, last treatment August 15. Seen this evening and she was returning from CT, still increased respiratory effort, although son and daughter at bedside stated she appears improved. Review of Systems A 14 point review of systems assessed and completed and all negative except HPI Past Medical History Past Medical History: Cancer, COPD, CVA/TIA, Fibromyalgia, GERD/Reflux, Hyperlipidemia, Osteoarthritis (OA), Pneumonia Additional Past Medical History / Comment(s): Non-small cell lung cancer stage 3 adenocarcinoma, COPD, fibromyalgia, acid reflux, hyperlipidemia, osteoarthritis, adrenal mass that has remained stable over some time, TIA history of, hiatal hernia, chronic constipation, chronic back pain, degenerative arthritis History of Any Multi-Drug Resistant Organisms: None Reported Additional Past Surgical History / Comment(s): SINUS surgery Past Anesthesia/Blood Transfusion Reactions: No Reported Reaction Past Psychological History: Depression Smoking Status: Former smoker Past Alcohol Use History: None Reported Additional Past Alcohol Use History / Comment(s): smokes < 1/2 PPD for past 30 yrs Past Drug Use History: Marijuana - Past Family History Mother Family Medical History: Cancer Father Family Medical History: Cancer Medications and Allergies Home Medications Medication Instructions Recorded Confirmed Type Albuterol Inhaler [Ventolin Hfa 2 puff INHALATION RT-QID PRN 12/03/13 09/13/18 History Inhaler] Cevimeline [Evoxac] 30 mg PO BID 12/03/13 09/13/18 History Escitalopram [Lexapro] 20 mg PO DAILY 12/03/13 09/13/18 History Esomeprazole Magnesium [NexIUM] 40 mg PO BID 12/03/13 09/13/18 History Morphine Sulfate [Ms Contin] 30 mg PO BID #60 tablet.er 03/11/15 09/13/18 Rx oxyCODONE-APAP 10-325MG [Percocet 1 tab PO Q6H PRN 09/05/16 09/13/18 History 10-325 mg] Albuterol Nebulized [Ventolin 2.5 mg INHALATION RT-QID PRN 02/23/17 09/13/18 History Nebulized] Budesonide-Formot 160-4.5 Mcg 2 puff INHALATION RT-BID 02/23/17 09/13/18 History [Symbicort 160-4.5 Mcg Inhaler] Ondansetron Odt [Zofran ODT] 8 mg PO Q6H PRN 02/23/17 09/13/18 History Prochlorperazine [Compazine] 10 mg PO Q6H PRN 02/23/17 09/13/18 History ALPRAZolam [Xanax] 0.25 mg PO Q6H PRN 01/20/18 09/13/18 History Cholecalciferol [Vitamin D3] 1,000 unit PO DAILY 09/13/18 09/13/18 History Cyanocobalamin (Vitamin B-12) 1,000 mcg PO BID 09/13/18 09/13/18 History [Vitamin B-12] Folic Acid 0.4 mg PO DAILY 09/13/18 09/13/18 History Furosemide [Lasix] 20 mg PO DAILY PRN 09/13/18 09/13/18 History Levothyroxine Sodium [Synthroid] 25 mcg PO DAILY 09/13/18 09/13/18 History Umeclidinium Golden [Incruse 1 puff INHALATION RT-DAILY 09/13/18 09/13/18 History Ellipta] guaiFENesin [Mucinex] 600 mg PO DAILY 09/13/18 09/13/18 History Allergies Allergy/AdvReac Type Severity Reaction Status Date / Time No Known Allergies Allergy Verified 09/13/18 15:55 Physical Exam Vitals: Vital Signs Temp Pulse Pulse Resp BP BP Pulse Ox 09/14/18 13:53 88 18 09/14/18 12:45 98.1 F 88 18 166/91 98 09/14/18 08:05 98.5 F 85 16 153/78 99 09/14/18 08:00 81 16 09/14/18 07:54 94 09/14/18 07:46 88 09/13/18 21:29 98.1 F 81 16 158/83 98 09/13/18 20:30 16 03/07/19 19:45 97.9 F 09/13/18 19:00 89 16 122/99 97 09/13/18 18:30 98.2 F 89 16 143/87 98 09/13/18 18:00 87 19 164/90 99 09/13/18 17:40 90 09/13/18 17:32 88 09/13/18 17:30 88 19 158/84 99 09/13/18 17:11 82 09/13/18 17:00 81 20 152/89 99 09/13/18 16:30 85 20 144/86 99 09/13/18 16:00 86 24 164/90 100 09/13/18 15:58 100 09/13/18 15:55 98.4 F 71 18 164/90 98 Intake and Output 09/14/18 09/14/18 09/14/18 06:59 14:59 22:59 Intake Total 200 Balance 200 Intake: Oral 200 Other: # Voids 1 1 Weight 57.153 kg Gen: Alert and Oriented, Mild Increased effort, although no acute distress Neck: Supple, Trachea Midline, No palpable Cervical Adenopathy Mucus Membranes: Dry with dry cracked lips, no lesions or thrush noted Heart Tachycardia, Regular Lungs: Expiratory wheezes, diminished bibasilar, mild increased resp effort Abdomen: Soft, Nondistended, Non tender Extremities: Weak although equal strength, BLE non-pitting edema. Results CBC & Chem 7: 09/14/18 10:38 09/14/18 10:38 Labs: Abnormal Lab Results - Last 24 Hours (Table) 09/13/18 09/13/18 09/14/18 Range/Units 17:00 17:00 10:38 WBC 12.3 H (3.8-10.6) k/uL Neutrophils # 10.8 H (1.3-7.7) k/uL Lymphocytes # 0.6 L 0.3 L (1.0-4.8) k/uL Sodium 136 L (137-145) mmol/L Carbon Dioxide 35 H (22-30) mmol/L BUN (7-17) mg/dL Glucose 113 H (74-99) mg/dL POC Glucose (mg/dL) (75-99) mg/dL Alkaline Phosphatase 219 H (38-126) U/L Total Protein (6.3-8.2) g/dL 09/14/18 09/14/18 Range/Units 10:38 12:50 WBC (3.8-10.6) k/uL Neutrophils # (1.3-7.7) k/uL Lymphocytes # (1.0-4.8) k/uL Sodium (137-145) mmol/L Carbon Dioxide 35 H (22-30) mmol/L BUN 19 H (7-17) mg/dL Glucose 157 H (74-99) mg/dL POC Glucose (mg/dL) 242 H (75-99) mg/dL Alkaline Phosphatase 215 H (38-126) U/L Total Protein 6.2 L (6.3-8.2) g/dL Chest x-ray: report reviewed (Chronic Left Infiltrate. ) Assessment and Plan Plan: Assessment and Recommendations: 1. Adenocarcinoma of the Lung - Stage IIIA Disease Diagnosed in December 2016 - Received Concurrent definitive treatment with Radiation and chemotherapy followed by 3 cycles of chemotherapy adjuvant to definitive radiation - Stable disease since this time without evidence of recurrence or metastatic cancer - Maintained on Immune Therapy with Imfinzi since 11/2017. 2. Acute on Chronic Respiratory Failure secondary to exacerbation of COPD versus effect of Immune therapy - Presentation appears most consistent with that of exacerbation of COPD, although given she has been receiving immune therapy for over 9 months must consider the differential of pneumonitis which can be induced with immune therapy. Given the fact she was recently treated in August for COPD exac erbation and improved while on Higher dose steroids, now recurred when steroids were tapered off increases the potential relation of immune related event. - Pulmonary is following and providing supportive treatments related to respiratory status: Diuresis, Solumedrol, Abx, Nebulizers and increased supp oxygen. - Last CT scan in July of this year again revealed no evidence of recurrent or metastatic disease, discussed with ORTHOTIC TECHNICIAN with Pulmonology will order CT with Contrast to reassess for pneumonitis. If present will require from longer taper, high dosed steroid regimen at discharge and discontinuation or extended hold on immune therapy depending on severity. 3. Lower Extremity Edema: Improved after Diuresis, continue to monitor and consider LE doppler if concern for underlying thrombus. 4. Chronic Illness Myopathy: Increased weakness and decreased performance status over the past few months. - Encourage to increase activity, may benefit from PT/OT inpatient and to continue as outpatient for stamina and safety 5. Tobacco Abuse: It is felt she is still smoking on and off, continued cessation encouraged. Physician Attestation: I have discussed the complete history and physical, and developed the complete impression and plan above. Agree with dictation, dictated as a scribe.
[2018-09-14 17:30] LABS: Glucose,Whole Blood 131 mg/dL (75-99)
[2018-09-14] MEDS: PANTOPRAZOLE 40 MG TABLET PO SCH (17:52)
[2018-09-14] MEDS: oxyCODONE-APAP 10-325MG 1 EACH TAB PO PRN (17:57)
[2018-09-14] MEDS ORDERED: RX INFO: IV CONTRAST WAS GIVEN 1 EACH MISC MISCELLANE PRN (18:51)
[2018-09-14 19:43] LABS: Glucose,Whole Blood 270 mg/dL (75-99)
[2018-09-14] MEDS ORDERED: LORazepam 2 MG/ML INJ IM STA (20:11)
--- NOTE | 2018-09-14 20:54 | CT ---
EXAMINATION TYPE: CT chest w con DATE OF EXAM: 09/14/2018 COMPARISON: 07/26/2018 HISTORY: Pneumonitis. History of lung cancer. CT DLP: 329.8 mGycm Automated exposure control for dose reduction was used. CONTRAST: CT scan of the chest is performed with IV Contrast, patient injected with 100ml mL of Isovu e 300. FINDINGS: AIRWAYS AND LUNG PARENCHYMA: Redemonstrated spiculated mass left upper lobe measuring 2.5 x 2.4 cm, s imilar in measurements when compared with the prior study 07/26/2018. No new suspicious pulmonary nodule identified at this time. No consolidation or pleural effusion. MEDIASTINUM/ROCÍO: No adenopathy. No cardiomegaly or pericardial effusion. Coronary calcifications are redemonstrated. No acute aortic finding. Pulmonary arterial tree is widely patent. SKELETAL STRUCTURES: No focal lesions. VISUALIZED SUBDIAPHRAGMATIC STRUCTURES: Redemonstrated tissue density mass of the left adrenal gland measuring up to 4.2 cm suggesting a myelolipoma. No other visualized focal visceral lesion. No visual ized adenopathy. No abnormal fluid collections. IMPRESSION: 1. 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 2. STABLE ADRENAL LEFT MYELOLIPOMA. 3. NO NEW PROCESS.
[2018-09-14] MEDS: SYMBICORT 160-4.5 MCG INHALER INHALATION SCH (21:15)
[2018-09-15] MEDS: IPRATROPIUM-ALBUTEROL 3 ML NEB INHALATION PRN (01:53)
[2018-09-15] MEDS: methylPREDNISolone SOD SUCCI 125 MG/2 ML VIAL IV SCH ×4 (06:10→23:30)
[2018-09-15] MEDS: LEVOTHYROXINE 25 MCG TAB PO SCH (06:10)
[2018-09-15] MEDS ORDERED: VANCOMYCIN IV PER PHARMACY 1 EACH MISC MISCELLANE PRN (07:33)
[2018-09-15 07:36] LABS: Glucose,Whole Blood 186 mg/dL (75-99)
[2018-09-15] MEDS: CYANOCOBALAMIN 500 MCG TAB PO SCH ×2 (07:45→20:38)
[2018-09-15] MEDS: ENOXAPARIN 40 MG/0.4 ML SYRINGE SQ SCH (07:45)
[2018-09-15] MEDS: INSULIN ASPART (NovoLOG) 100 UNIT/ML VIAL SQ SCH ×4 (07:45→20:39)
[2018-09-15] MEDS: CHOLECALCIFEROL 1,000 UNIT TAB PO SCH (07:46)
[2018-09-15] MEDS: ESCITALOPRAM 20 MG TAB PO SCH (07:46)
[2018-09-15] MEDS: PANTOPRAZOLE 40 MG TABLET PO SCH ×2 (07:46→17:47)
[2018-09-15] MEDS: CEVIMELINE 30 MG CAP PO SCH ×2 (07:46→20:38)
[2018-09-15] MEDS: guaiFENesin 600 MG TABLET.ER PO SCH (07:47)
[2018-09-15] MEDS: FUROSEMIDE 20 MG TAB PO SCH (07:47)
[2018-09-15] MEDS: FOLIC ACID 1 MG TAB PO SCH (07:47)
[2018-09-15] MEDS: MORPHINE SULFATE ER 30 MG TABLET PO SCH ×2 (07:47→20:38)
[2018-09-15] MEDS: SYMBICORT 160-4.5 MCG INHALER INHALATION SCH ×2 (08:20→20:24)
[2018-09-15] MEDS: IPRATROPIUM 0.5 MG/2.5 ML NEBU INHALATION SCH ×4 (08:20→20:24)
[2018-09-15] MEDS ORDERED: VANCOMYCIN 1,000 MG in SODIUM CHLORIDE 0.9% 250 ML IVPB SCH (09:00)
[2018-09-15 09:17] LABS: Basophils % (A) 0 %; Eosinophils # (A) 0.1 k/uL (0-0.7); Eosinophils % (A) 1 %; HCT 43.3 % (34.0-46.0); HGB 13.7 gm/dL (11.4-16.0); Lymphocytes # (A) 0.3 k/uL (1.0-4.8); Lymphocytes % (A) 2 %; MCH 31.3 pg (25.0-35.0); MCHC 31.6 g/dL (31.0-37.0); MCV 99.1 fL (80.0-100.0); Macrocytosis Slight; Mean Platelet Volume 6.2; Monocytes # (A) 0.6 k/uL (0-1.0); Monocytes % (A) 4 %; Neutrophils # (A) 12.2 k/uL (1.3-7.7); Neutrophils % (A) 92 %; Platelet Count 374 k/uL (150-450); RBC 4.37 m/uL (3.80-5.40); RDW 15.2 % (11.5-15.5); WBC 13.3 k/uL (3.8-10.6)
[2018-09-15 09:29] LABS: ALT 43 U/L (9-52); AST 28 U/L (14-36); Albumin 3.8 g/dL (3.5-5.0); Alkaline Phosphatase 218 U/L (38-126); Anion Gap 7 mmol/L; Blood Urea Nitrogen 24 mg/dL (7-17); Calcium 9.3 mg/dL (8.4-10.2); Carbon Dioxide 35 mmol/L (22-30); Chloride 98 mmol/L (98-107); Glucose 263 mg/dL (74-99); Potassium 3.7 mmol/L (3.5-5.1); Sodium 140 mmol/L (137-145); Total Bilirubin 0.4 mg/dL (0.2-1.3); Total Protein 6.5 g/dL (6.3-8.2)
--- NOTE | 2018-09-15 10:37 | P.PN ---
Subjective Progress Note Date: 09/15/18 The patient's breathing feels improved. She denies significant cough or expectoration at this time. No obvious bleeding. No fever/chills Objective - Vital Signs Vital signs: Vital Signs Temp 98.2 F 09/15/18 04:36 Pulse 88 09/15/18 08:38 Resp 20 09/15/18 04:36 BP 148/87 09/15/18 04:36 Pulse Ox 97 09/15/18 04:36 Intake & Output 09/14/18 09/15/18 09/15/18 18:59 06:59 18:59 Intake Total 200 Balance 200 Weight 57.153 kg Intake: Oral 200 Other: Voiding Method Bedside Commode # Voids 1 1 - Constitutional General appearance: Present: no acute distress - EENT Eyes: Present: EOMI ENT: Present: hearing grossly normal, normal oropharynx - Respiratory Respiratory: right: wheezing (Mild, right middle zone), bilateral: diminished - Cardiovascular Rhythm: regular Heart sounds: normal: S1, S2 - Gastrointestinal General gastrointestinal: Present: normal bowel sounds, soft - Neurologic Neurologic: Present: CNII-XII intact - Musculoskeletal Musculoskeletal: Present: generalized weakness, strength equal bilaterally - Psychiatric Psychiatric: Present: A&O x's 3, appropriate affect - Labs CBC & Chem 7: 09/15/18 09:01 09/15/18 09:01 Labs: Abnormal Lab Results - Last 24 Hours (Table) 09/14/18 09/14/18 09/14/18 Range/Units 10:38 10:38 12:50 WBC (3.8-10.6) k/uL Neutrophils # (1.3-7.7) k/uL Lymphocytes # 0.3 L (1.0-4.8) k/uL Carbon Dioxide 35 H (22-30) mmol/L BUN 19 H (7-17) mg/dL Glucose 157 H (74-99) mg/dL POC Glucose (mg/dL) 242 H (75-99) mg/dL Alkaline Phosphatase 215 H (38-126) U/L Total Protein 6.2 L (6.3-8.2) g/dL TSH (0.465-4.680) mIU/L 09/14/18 09/14/18 09/15/18 Range/Units 17:28 19:42 07:35 WBC (3.8-10.6) k/uL Neutrophils # (1.3-7.7) k/uL Lymphocytes # (1.0-4.8) k/uL Carbon Dioxide (22-30) mmol/L BUN (7-17) mg/dL Glucose (74-99) mg/dL POC Glucose (mg/dL) 131 H 270 H 186 H (75-99) mg/dL Alkaline Phosphatase (38-126) U/L Total Protein (6.3-8.2) g/dL TSH (0.465-4.680) mIU/L 09/15/18 09/15/18 Range/Units 09:01 09:01 WBC 13.3 H (3.8-10.6) k/uL Neutrophils # 12.2 H (1.3-7.7) k/uL Lymphocytes # 0.3 L (1.0-4.8) k/uL Carbon Dioxide 35 H (22-30) mmol/L BUN 24 H (7-17) mg/dL Glucose 263 H (74-99) mg/dL POC Glucose (mg/dL) (75-99) mg/dL Alkaline Phosphatase 218 H (38-126) U/L Total Protein (6.3-8.2) g/dL TSH 0.030 L (0.465-4.680) mIU/L Microbiology - Last 24 Hours (Table) 09/13/18 17:00 Blood Culture - Final Blood Assessment and Plan (1) Acute exacerbation of chronic obstructive airways disease Narrative/Plan: The patient is improved with ongoing treatment. Computed tomography scan of the chest was discussed with her. This does not show any evidence of pneumonitis at this time. Therefore her respiratory complains are more likely to be due to COPD exacerbation, rather than drug-induced pneumonitis. - Continue treatment according to the admitting service and pulmonary medicine. Current Visit: Yes Status: Acute Code(s): J44.1 - CHRONIC OBSTRUCTIVE PULMONARY DISEASE W (ACUTE) EXACERBATION SNOMED Code(s): 081897795 (2) Non-small cell lung cancer Narrative/Plan: As CT of the chest does not show any definite pneumonitis, it would be reasonable to consider resuming her immunotherapy, once her acute situation is sufficiently resolved. The patient has follow-up scheduled in the office already. Current Visit: No Status: Acute Priority: Medium Code(s): C34.90 - MALIGNANT NEOPLASM OF UNSP PART OF UNSP BRONCHUS OR LUNG SNOMED Code(s): 740372230
[2018-09-15 11:48] LABS: Glucose,Whole Blood 225 mg/dL (75-99)
[2018-09-15 12:03] LABS: T4, Free (Free Thyroxine) 1.08 ng/dL (0.78-2.19)
--- NOTE | 2018-09-15 12:11 | P.PN ---
Subjective Progress Note Date: 09/15/18 Principal diagnosis: acute exacerbation of severe oxygen dependent chronic obstructive pulmonary disease complicated by purulent tracheobronchitis. This is a very pleasant 63-year-old female patient who follows with Dr. Benoit as her primary care physician. She has a history of CVA/TIA, fibromyalgia, gastroesophageal reflux disease, hyperlipidemia, hypothyroidism, chronic back pain, depression. She also has a history of chronic tobacco dependence, oxygen dependent chronic obstructive pulmonary disease with an FEV1 value of 56% of predicted, and non-small cell lung cancer stage III adenocarcinoma. She follows with Dr. Fan in our office. This was diagnosed by an FNA of a left upper lobe lesion by IR in November 2016. She had received concurrent chemoradiation with subsequent additional chemotherapy and then placed on maintenance mmunotherapy of Imfinzi back in December 2017. Her last PET scan in March 2018 revealed continued left upper lobe mass with irregular margins extending to the pleural surface, spiculated appearance but was stable compared to previous and October 2017. The SUV value was only 1.7. Subsequent computed tomography scan of the chest in July 2018 revealed a stable and slightly smaller spiculated mass of the left upper lobe measuring 2.5 x 2.4 cm versus 3.0 x 2.6 previous. No evidence of recurrence or metastasis. Approximately 2-3 weeks ago the patient had seen Dr. Posey. She was having ongoing issues with nausea vomiting profound weakness and fatigue. She decided to stop taking the immunotherapy. She had been treated for his COPD exacerbation 08/22/[address] office [address]. Fan where she received steroids and Bactrim. She did improve for the first week or so. She presented to the emergency room yesterday with complaints of increasing shortness of breath cough and congestion. She did have some lower extremity edema. She was still quite weak and fatigued. Chest x-ray revealed some small infiltrate of the left lung base, which is chronic in nature. White count 12.3. Hemoglobin 13.3. Creatinine 0.61. ProBNP 244. She's been initiated on DuoNeb inhalations, Symbicort, IV Solu-Medrol. She was given IV diuretics as well. Presently, she is resting quite comfortably in bed. She is awake and alert in no acute distress. She is breathing a bit easier today as compared to yesterday. Not quite back to her baseline. She has a loose nonproductive congestive cough, some dyspnea on exertion. Patient was reevaluated today on 09/15/2018, tells me today that she is feeling much better, breathing a lot easier. Hardly any cough, no wheezing, no shortness of breath, she remains on 4 L nasal cannula. She is on bro nchodilators, steroids, antibiotics, and according to her she has made a significant improvement in the last 24 hours. Patient is asking me to clear her for discharge, and based on the clinical findings, I felt that the patient could be discharged home if agreeable with the admitting physician.labs were reviewed she had a relatively normal basic metabolic profile is normal CBC WBC count is 13.3. Rest of the labs were unremarkable.CT of the chest was reviewed and it showed a stable left upper lobe spiculated bronchogenic mass, measuring 2.52.4 cm, similar to previous CT done in July of 2018. No new abnormalities noted. Objective - Vital Signs Vital signs: Vital Signs Temp 98.2 F 09/15/18 04:36 Pulse 88 09/15/18 08:38 Resp 20 09/15/18 04:36 BP 148/87 09/15/18 04:36 Pulse Ox 97 09/15/18 04:36 Intake & Output 09/14/18 09/15/18 09/15/18 18:59 06:59 18:59 Intake Total 200 Balance 200 Weight 57.153 kg Intake: Oral 200 Other: Voiding Method Bedside Commode Toilet # Voids 1 1 - Exam Physical Exam: Revealed a 63-year-old female, pleasant, in no distress, on 4 L nasal cannula. Head: Atraumatic, normocephalic. HEENT:[Neck is supple.] [No neck masses.] [No thyromegaly.] [No JVD.]PERRLA, EOMI, no icterus. Chest: [diminished breath sound bilaterally, minimal wheezing on forced expiratory maneuver otherwise good breath sounds throughout. Cardiac Exam: [Normal S1 and S2, no S3 gallop, no murmur.] Abdomen: [Soft, nontender, no megaly, no rebound, no guarding, normal bowel sounds.] Extremities: [No clubbing, no edema, no cyanosis.] Neurological Exam: [No focal neurologic deficit. psychiatric: Normal mood affect and mental status examination. Skin: No rashes. Spine: No scoliosis or deformity] - Labs CBC & Chem 7: 09/15/18 09:01 09/15/18 09:01 Labs: Abnormal Lab Results - Last 24 Hours (Table) 09/14/18 09/14/18 09/14/18 Range/Units 12:50 17:28 19:42 WBC (3.8-10.6) k/uL Neutrophils # (1.3-7.7) k/uL Lymphocytes # (1.0-4.8) k/uL Carbon Dioxide (22-30) mmol/L BUN (7-17) mg/dL Glucose (74-99) mg/dL POC Glucose (mg/dL) 242 H 131 H 270 H (75-99) mg/dL Alkaline Phosphatase (38-126) U/L TSH (0.465-4.680) mIU/L 09/15/18 09/15/18 09/15/18 Range/Units 07:35 09:01 09:01 WBC 13.3 H (3.8-10.6) k/uL Neutrophils # 12.2 H (1.3-7.7) k/uL Lymphocytes # 0.3 L (1.0-4.8) k/uL Carbon Dioxide 35 H (22-30) mmol/L BUN 24 H (7-17) mg/dL Glucose 263 H (74-99) mg/dL POC Glucose (mg/dL) 186 H (75-99) mg/dL Alkaline Phosphatase 218 H (38-126) U/L TSH 0.030 L (0.465-4.680) mIU/L 09/15/18 Range/Units 11:47 WBC (3.8-10.6) k/uL Neutrophils # (1.3-7.7) k/uL Lymphocytes # (1.0-4.8) k/uL Carbon Dioxide (22-30) mmol/L BUN (7-17) mg/dL Glucose (74-99) mg/dL POC Glucose (mg/dL) 225 H (75-99) mg/dL Alkaline Phosphatase (38-126) U/L TSH (0.465-4.680) mIU/L Microbiology - Last 24 Hours (Table) 09/13/18 17:00 Blood Culture Gram Stain - Preliminary Blood 09/13/18 17:00 Blood Culture - Final Blood Assessment and Plan Assessment: #1 Acute exacerbation of severe oxygen dependent chronic obstructive pulmonary disease, complicated by purulent tracheobronchitis. No clear evidence of pneumonia.CT of the chest was reviewed. #2 History of chronic tobacco dependence, states quit about 6 months ago. #3 History of stage III non-small cell lung cancer, adenocarcinoma diagnosed in November 2016. Status post chemoradiation with subsequent chemotherapy and eventual immunotherapy. Most recently on Imfinzi but having issues with profound weakness and fatigue. follow-up CT of the chest on this admission showed stable lesion unchanged compared to CT in July of 2018. #4 History of CVA/TIA. #5 Hyperlipidemia. #6 Hypothyroidism. #7 Fibromyalgia. #8 Chronic pain syndrome. #9 History of depression. #10 History of marijuana use. Recommendation: Continue present bronchodilators including DuoNeb Symbicort, antibiotics, could switch patient to prednisone at 30 mg tapered over 2-3 weeks. Agent will be cleared from my perspective to be discharged home if agreeable with the admitting physician. And she could follow-up with Dr. Fan in 1-2 weeks. Time with Patient: Less than 30
--- NOTE | 2018-09-15 12:22 | ECHOF ---
Referral Reason:increase perpherial edema MEASUREMENTS -------- HEIGHT: 132.1 cm WEIGHT: 57.2 kg BP: RVIDd: 2.2 cm (< 3.3) IVSd: 1.0 cm (0.6 - 1.1) LVIDd: 3.5 cm (3.9 - 5.3) LVPWd: 1.4 cm (0.6 - 1.1) IVSs: 1.4 cm LVIDs: 2.6 cm LVPWs: 1.1 cm LA Diam: 2.7 cm (2.7 - 3.8) Ao Diam: 2.9 cm (2.0 - 3.7) AV Cusp: 1.9 cm (1.5 - 2.6) LA Diam: 3.4 cm (2.7 - 3.8) MV EXCURSION: 14.577 mm (> 18.000) MV EF SLOPE: 106 mm/s (70 - 150) EPSS: 0.4 cm MV E Jeffrey: 0.59 m/s MV DecT: 213 ms MV A Jeffrey: 0.92 m/s MV E/A Ratio: 0.65 RAP: 5.00 mmHg RVSP: 18.74 mmHg FINDINGS -------- Sinus rhythm. This was a technically adequate study. LV size, wall thickness and systolic function are normal, with an EF greater than 55%. The left richard tricular size is normal. The right ventricle is normal in size. The left atrial size is normal. The right atrial size is normal. There is mild aortic valve sclerosis. There is no evidence of aortic regurgitation. Mild mitral annular calcification present. Mild mitral regurgitation is present. Mild tricuspid regurgitation present. There is no evidence of pulmonary hypertension. The right v entricular systolic pressure, as measured by Doppler, is 18.74mmHg. There is no pulmonic regurgitation present. The aortic root size is normal. Echo free space indicative of a pericardial fat pad. CONCLUSIONS -------- 1. LV size, wall thickness and systolic function are normal, with an EF greater than 55%. 2. The left ventricular size is normal. 3. The right ventricle is normal in size. 4. The left atrial size is normal. 5. The right atrial size is normal. 6. There is mild aortic valve sclerosis. 7. Mild mitral annular calcification present. 8. Mild mitral regurgitation is present. 9. Mild tricuspid regurgitation present. 10. There is no evidence of pulmonary hypertension. 11. The right ventricular systolic pressure, as measured by Doppler, is 18.74mmHg. 12. There is no pulmonic regurgitation present. 13. The aortic root size is normal. 14. Echo free space indicative of a pericardial fat pad. MANAGER OF REVENUE: Viki Ramsay RDCS
--- NOTE | 2018-09-15 12:42 | P.PN ---
Subjective Progress Note Date: 09/15/18 This is a 63-year-old female patient of Dr. Benoit. Patient presented to the ER with complaints of increased shortness of breath. Patient reports that over the past week she's had increased shortness of breath with activity. Patient denies any significant sputum production. Patient also states she's had increased lower peripheral edema. She does have a past medical history of lung cancer stage III when she follows with Dr. Posey. Patient reports that her last was proximally 1 month ago with immunotherapy. Patient also went for routine CT in July. Patient is home O2 dependent with 2 L. Additional medical history includes COPD, CVA, fibromyalgia, GERD, hyperlipidemia, osteoarthritis, p neumonia, chronic back pain, constipation, hiatal hernia and depression. Patient also has a smoking history of half a pack per day for 30 years. Patient has stopped smoking at this time. Chest x-ray completed showing chronic infiltrate left lateral lung base unchanged compared to old exam no heart failure. EKG completed showing normal sinus rhythm, right atrial enlargement. At this time pulmonary and oncology service is consulted. Patient started on IV Solu-Medrol. Patient reports significant improvement with shortness of breath. Patient denies chest pain. Patient denies nausea vomiting or diarrhea. Patient denies any urinary burning or frequency. On 09/15/2018 patient is alert and oriented 3 in no apparent distress she states she feels better she has less shortness of breath and less cough otherwise she denies any other symptoms there is no fever or chills no headache or dizziness no chest pain no palpitation no nausea or vomiting no abdominal pain no diarrhea and no urinary symptoms. Earlier this morning patient had a positive blood culture for gram-positive cocci IV vancomycin was added to her regimen. Objective - Vital Signs Vital signs: Vital Signs Temp 98.2 F 09/15/18 04:36 Pulse 88 09/15/18 12:19 Resp 20 09/15/18 04:36 BP 148/87 09/15/18 04:36 Pulse Ox 97 09/15/18 04:36 Intake & Output 09/14/18 09/15/18 09/15/18 18:59 06:59 18:59 Intake Total 200 Balance 200 Weight 57.153 kg Intake: Oral 200 Other: Voiding Method Bedside Commode Toilet # Voids 1 1 - Exam Head normocephalic and atraumatic Neck supple no JVD no goiter Lungs diminished bilaterally with expiratory wheezing Heart regular rate and rhythm S1-S2, no rub or gallop Abdomen is soft nontender nondistended positive bowel sounds no hepatosplenomegaly Extremities no edema no cyanosis or clubbing Neuro alert and orientated to 3 - Labs CBC & Chem 7: 09/15/18 09:01 09/15/18 09:01 Labs: Abnormal Lab Results - Last 24 Hours (Table) 09/14/18 09/14/18 09/14/18 Range/Units 12:50 17:28 19:42 WBC (3.8-10.6) k/uL Neutrophils # (1.3-7.7) k/uL Lymphocytes # (1.0-4.8) k/uL Carbon Dioxide (22-30) mmol/L BUN (7-17) mg/dL Glucose (74-99) mg/dL POC Glucose (mg/dL) 242 H 131 H 270 H (75-99) mg/dL Alkaline Phosphatase (38-126) U/L TSH (0.465-4.680) mIU/L 09/15/18 09/15/18 09/15/18 Range/Units 07:35 09:01 09:01 WBC 13.3 H (3.8-10.6) k/uL Neutrophils # 12.2 H (1.3-7.7) k/uL Lymphocytes # 0.3 L (1.0-4.8) k/uL Carbon Dioxide 35 H (22-30) mmol/L BUN 24 H (7-17) mg/dL Glucose 263 H (74-99) mg/dL POC Glucose (mg/dL) 186 H (75-99) mg/dL Alkaline Phosphatase 218 H (38-126) U/L TSH 0.030 L (0.465-4.680) mIU/L 09/15/18 Range/Units 11:47 WBC (3.8-10.6) k/uL Neutrophils # (1.3-7.7) k/uL Lymphocytes # (1.0-4.8) k/uL Carbon Dioxide (22-30) mmol/L BUN (7-17) mg/dL Glucose (74-99) mg/dL POC Glucose (mg/dL) 225 H (75-99) mg/dL Alkaline Phosphatase (38-126) U/L TSH (0.465-4.680) mIU/L Microbiology - Last 24 Hours (Table) 09/13/18 17:00 Blood Culture Gram Stain - Preliminary Blood 09/13/18 17:00 Blood Culture - Final Blood Assessment and Plan Plan: 1. Shortness of breath related to COPD exacerbation. Chest x-ray completed showing chronic infiltrate lateral left lung base unchanged compared to old exam. Normal heart failure. Dr. Ace consulted for pulmonary services. Serge neff started on IV steroids. Continue DuoNeb breathing treatment 2. Non-small cell lung cancer stage III adenocarcinoma. Patient follows with Dr. Posey oncology services. Patient reports that she had immunotherapy proximally 1 month ago. Pathology services have been consulted 3. History of COPD 4. History of CVA 5. History of hyperlipidemia 6. History of fibromyalgia 7. History of osteoarthritis 8. History of depression 9. ex-Smoker. Patient smoked approximately half pack per day for 30 years. 10. positive blood culture for gram-positive cocci patient was started on IV vancomycin infectious disease consultation requested. DVT prophylaxis Lovenox. GI prophylaxis Protonix
[2018-09-15] MEDS: oxyCODONE-APAP 10-325MG 1 EACH TAB PO PRN ×2 (12:43→20:44)
[2018-09-15 17:07] LABS: Glucose,Whole Blood 160 mg/dL (75-99)
[2018-09-15 20:23] LABS: Glucose,Whole Blood 242 mg/dL (75-99)
--- NOTE | 2018-09-16 00:26 | CONS ---
CONSULTATION DATE OF SERVICE: 09/15/2018. REASON FOR CONSULTATION: Positive blood culture. HISTORY OF PRESENT ILLNESS: The patient is a 63-year-old female with past medical history significant for non-small cell left upper lobe cancer for which the patient has received chemoradiation therapy and subsequent started on immunotherapy which apparently the patient stopped taking in June with concern for GI side effect. The patient now presenting to the ER at [facility] on 09/13/2018 with chief complaint of increasing shortness of breath. Her breathing has been getting worse with a few days before she was in the hospital. The patient did have a cough which is much worse recently, but not bringing up any sputum. Denies having any choking on food. No nausea, no vomiting. No diarrhea. On presentation to the hospital patient was afebrile and has remained to be afebrile. The patient did have a chest x-ray which shows chronic infiltrate in the lateral lung base, unchanged compared to old exam. The patient has been diagnosed with COPD exacerbation and tracheobronchitis. She has been treated with Rocephin. She did have blood cultures obtained which are now coming positive gram- positive cocci. The patient was started on vancomycin. Infectious Disease was consulted for further recommendation of antibiotic therapy. The patient did have a CT of the chest which showed stable left upper lobe mass. No acute process. REVIEW OF SYSTEMS: Positive points have been mentioned in HPI, otherwise have been negative. PAST MEDICAL HISTORY: Non-small cell lung cancer stage 3, COPD, CVA, TIA, fibromyalgia, , hyperlipidemia, pneumonia. PAST SURGICAL HISTORY: Bronchoscopy with biopsy and sinus surgery. SOCIAL HISTORY: Remote history of smoking. Has about 30 pack year smoking. Occasional marijuana use. FAMILY HISTORY: Family history of cancer. ALLERGIES: No known drug allergies. MEDICATIONS: Medications include the patient is currently on DuoNeb, Xanax, Symbicort, Rocephin 1 g daily, , vitamin D3, B12, Lovenox, Lexapro, folic acid, Lasix, Mucinex, Dilaudid, NovoLog, Synthroid, Solu-Medrol, MS Contin, Zofran, Protonix, Compazine, vancomycin pharmacy to dose. PHYSICAL EXAMINATION: Blood pressure 156/95 with a pulse of 85, temperature of 98 ,she is 98% on 4 L nasal cannula. GENERAL DESCRIPTION: An elderly female up in the chair in no distress. No tachypnea or accessory muscle of respiration use. HEENT: Shows no pallor or scleral icterus. Oral mucosa is moist. NECK: Trachea central. No thyromegaly. LUNGS: Unlabored breathing, decreased breath sounds at the bases. No wheeze. HEART: S1, S2. Regular rate and rhythm. ABDOMEN: Soft. EXTREMITIES: Some trace edema of the feet. Multiple bruises. No rash or mass palpable. NEUROLOGIC: The patient is awake, alert, oriented. Mood and affect normal. LABS: Hemoglobin is 13.7, white count 13.3 with a BUN of 24, creatinine 0.63. Blood culture with coagulase-negative staph. CT report as mentioned above. DIAGNOSTIC IMPRESSION AND PLAN: 1. Patient with a positive blood culture with coagulase negative staph with no to go along, more likely skin contamination. 2. Patient admitted to the hospital with increasing shortness of breath and cough, more likely COPD exacerbation with tracheobronchitis. No evidence of pneumonia on chest x-ray or CT. PLAN: We will discontinue the vancomycin and Rocephin can be safely discontinued. Patient to continue with per Pulmonary. We will monitor the patient closely off antibiotic therapy. Thank you for this consultation. Will follow this patient along with you. MMODL / IJN: [id number] /
[2018-09-16] MEDS: LEVOTHYROXINE 25 MCG TAB PO SCH (05:41)
[2018-09-16] MEDS: methylPREDNISolone SOD SUCCI 125 MG/2 ML VIAL IV SCH ×2 (05:41→12:15)
[2018-09-16] MEDS: oxyCODONE-APAP 10-325MG 1 EACH TAB PO PRN (05:41)
[2018-09-16 06:38] LABS: Glucose,Whole Blood 133 mg/dL (75-99)
[2018-09-16 07:02] VITALS: RESP 16
[2018-09-16] MEDS: INSULIN ASPART (NovoLOG) 100 UNIT/ML VIAL SQ SCH ×2 (07:33→12:15)
[2018-09-16] MEDS: PANTOPRAZOLE 40 MG TABLET PO SCH (07:33)
[2018-09-16] MEDS: ENOXAPARIN 40 MG/0.4 ML SYRINGE SQ SCH (07:33)
[2018-09-16] MEDS: CYANOCOBALAMIN 500 MCG TAB PO SCH (07:34)
[2018-09-16] MEDS: CHOLECALCIFEROL 1,000 UNIT TAB PO SCH (07:34)
[2018-09-16] MEDS: guaiFENesin 600 MG TABLET.ER PO SCH (07:34)
[2018-09-16] MEDS: FOLIC ACID 1 MG TAB PO SCH (07:34)
[2018-09-16] MEDS: FUROSEMIDE 20 MG TAB PO SCH (07:34)
[2018-09-16] MEDS: CEVIMELINE 30 MG CAP PO SCH (07:34)
[2018-09-16] MEDS: ESCITALOPRAM 20 MG TAB PO SCH (07:34)
[2018-09-16] MEDS: MORPHINE SULFATE ER 30 MG TABLET PO SCH (07:35)
[2018-09-16 08:01] LABS: ALT 40 U/L (9-52); AST 25 U/L (14-36); Albumin 3.4 g/dL (3.5-5.0); Alkaline Phosphatase 200 U/L (38-126); Anion Gap 3 mmol/L; Blood Urea Nitrogen 20 mg/dL (7-17); Calcium 9.2 mg/dL (8.4-10.2); Carbon Dioxide 38 mmol/L (22-30); Chloride 95 mmol/L (98-107); Glucose 131 mg/dL (74-99); Potassium 4.2 mmol/L (3.5-5.1); Sodium 136 mmol/L (137-145); Total Bilirubin 0.5 mg/dL (0.2-1.3)
[2018-09-16 08:13] LABS: Basophils % (A) 0 %; Eosinophils # (A) 0.1 k/uL (0-0.7); Eosinophils % (A) 1 %; HCT 41.9 % (34.0-46.0); HGB 13.7 gm/dL (11.4-16.0); Lymphocytes # (A) 0.4 k/uL (1.0-4.8); Lymphocytes % (A) 3 %; MCH 32.1 pg (25.0-35.0); MCHC 32.7 g/dL (31.0-37.0); MCV 98.1 fL (80.0-100.0); Mean Platelet Volume 6.3; Monocytes # (A) 0.7 k/uL (0-1.0); Monocytes % (A) 5 %; Neutrophils # (A) 11.7 k/uL (1.3-7.7); Neutrophils % (A) 91 %; Platelet Count 354 k/uL (150-450); RBC 4.28 m/uL (3.80-5.40); RDW 15.1 % (11.5-15.5); WBC 12.9 k/uL (3.8-10.6)
[2018-09-16] MEDS: SYMBICORT 160-4.5 MCG INHALER INHALATION SCH (08:13)
[2018-09-16] MEDS: IPRATROPIUM 0.5 MG/2.5 ML NEBU INHALATION SCH ×3 (08:13→15:25)
[2018-09-16 11:01] LABS: Glucose,Whole Blood 153 mg/dL (75-99)
[2018-09-16 12:56] VITALS: BP 151/93; TEMP 98.1
--- NOTE | 2018-09-16 13:27 | P.PN ---
Subjective Progress Note Date: 09/16/18 Principal diagnosis: acute exacerbation of severe oxygen dependent chronic obstructive pulmonary disease complicated by purulent tracheobronchitis. This is a very pleasant 63-year-old female patient who follows with Dr. Benoit as her primary care physician. She has a history of CVA/TIA, fibromyalgia, gastroesophageal reflux disease, hyperlipidemia, hypothyroidism, chronic back pain, depression. She also has a history of chronic tobacco dependence, oxygen dependent chronic obstructive pulmonary disease with an FEV1 value of 56% of predicted, and non-small cell lung cancer stage III adenocarcinoma. She follows with Dr. Fan in our office. This was diagnosed by an FNA of a left upper lobe lesion by IR in November 2016. She had received concurrent chemoradiation with subsequent additional chemotherapy and then placed on maintenance mmunotherapy of Imfinzi back in December 2017. Her last PET scan in March 2018 revealed continued left upper lobe mass with irregular margins extending to the pleural surface, spiculated appearance but was stable compared to previous and October 2017. The SUV value was only 1.7. Subsequent computed tomography scan of the chest in July 2018 revealed a stable and slightly smaller spiculated mass of the left upper lobe measuring 2.5 x 2.4 cm versus 3.0 x 2.6 previous. No evidence of recurrence or metastasis. Approximately 2-3 weeks ago the patient had seen Dr. Posey. She was having ongoing issues with nausea vomiting profound weakness and fatigue. She decided to stop taking the immunotherapy. She had been treated for his COPD exacerbation 08/22/[address] Fan where she received steroids and Bactrim. She did improve for the first week or so. She presented to the emergency room yesterday with complaints of increasing shortness of breath cough and congestion. She did have some lower extremity edema. She was still quite weak and fatigued. Chest x-ray revealed some small infiltrate of the left lung base, which is chronic in nature. White count 12.3. Hemoglobin 13.3. Creatinine 0.61. ProBNP 244. She's been initiated on DuoNeb inhalations, Symbicort, IV Solu-Medrol. She was given IV diuretics as well. Presently, she is resting quite comfortably in bed. She is awake and alert in no acute distress. She is breathing a bit easier today as compared to yesterday. Not quite back to her baseline. She has a loose nonproductive congestive cough, some dyspnea on exertion. Patient was reevaluated today on 09/15/2018, tells me today that she is feeling much better, breathing a lot easier. Hardly any cough, no wheezing, no shortness of breath, she remains on 4 L nasal cannula. She is on bro nchodilators, steroids, antibiotics, and according to her she has made a significant improvement in the last 24 hours. Patient is asking me to clear her for discharge, and based on the clinical findings, I felt that the patient could be discharged home if agreeable with the admitting physician.labs were reviewed she had a relatively normal basic metabolic profile is normal CBC WBC count is 13.3. Rest of the labs were unremarkable.CT of the chest was reviewed and it showed a stable left upper lobe spiculated bronchogenic mass, measuring 2.52.4 cm, similar to previous CT done in July of 2018. No new abnormalities noted. Patient was reevaluated today on 09/16/2018, continues to do well, hardly any cough no wheezing no shortness of breath, patient tells me that she is back to her baseline. Her discharge was delayed yesterday because of her positive blood culture, however it's clearly a contamination because it is coagulase-negative staph. All labs were reviewed today, relatively unremarkable. Objective - Vital Signs Vital signs: Vital Signs Temp 98.1 F 09/16/18 12:51 Pulse 91 09/16/18 12:51 Resp 16 09/16/18 12:51 BP 151/93 09/16/18 12:51 Pulse Ox 98 09/16/18 12:51 Intake & Output 09/15/18 09/16/18 09/16/18 17:59 06:59 18:59 Intake Total Balance Intake: Intake, IV Titration Amount Vancomycin 1,000 mg In Sodium Chloride 0.9% 250 ml @ 125 mls/hr IVPB Q12H [facility] Rx#:[id number] cefTRIAXone 1 gm In Sodium Chloride 0.9% 50 ml @ 100 mls/hr IVPB Q24HR [facility] Rx#:[id number] Other: Voiding Method Toilet # Voids - Exam Physical Exam: Revealed a 63-year-old female, pleasant, in no distress, on 4 L nasal cannula. Head: Atraumatic, normocephalic. HEENT:[Neck is supple.] [No neck masses.] [No thyromegaly.] [No JVD.]PERRLA, EOMI, no icterus. Chest: [diminished breath sound bilaterally, no crackles, no rhonchi and no wheezes. Cardiac Exam: [Normal S1 and S2, no S3 gallop, no murmur.] Abdomen: [Soft, nontender, no megaly, no rebound, no guarding, normal bowel sounds.] Extremities: [No clubbing, no edema, no cyanosis.] Neurological Exam: [No focal neurologic deficit. psychiatric: Normal mood affect and mental status examination. Skin: No rashes. Spine: No scoliosis or deformity] - Labs CBC & Chem 7: 09/16/18 07:20 09/16/18 07:20 Labs: Abnormal Lab Results - Last 24 Hours (Table) 09/15/18 09/15/18 09/16/18 Range/Units 17:04 20:21 06:36 WBC (3.8-10.6) k/uL Neutrophils # (1.3-7.7) k/uL Lymphocytes # (1.0-4.8) k/uL Sodium (137-145) mmol/L Chloride (98-107) mmol/L Carbon Dioxide (22-30) mmol/L BUN (7-17) mg/dL Glucose (74-99) mg/dL POC Glucose (mg/dL) 160 H 242 H 133 H (75-99) mg/dL Alkaline Phosphatase (38-126) U/L Total Protein (6.3-8.2) g/dL Albumin (3.5-5.0) g/dL 09/16/18 09/16/18 09/16/18 Range/Units 07:20 07:20 10:59 WBC 12.9 H (3.8-10.6) k/uL Neutrophils # 11.7 H (1.3-7.7) k/uL Lymphocytes # 0.4 L (1.0-4.8) k/uL Sodium 136 L (137-145) mmol/L Chloride 95 L (98-107) mmol/L Carbon Dioxide 38 H (22-30) mmol/L BUN 20 H (7-17) mg/dL Glucose 131 H (74-99) mg/dL POC Glucose (mg/dL) 153 H (75-99) mg/dL Alkaline Phosphatase 200 H (38-126) U/L Total Protein 6.0 L (6.3-8.2) g/dL Albumin 3.4 L (3.5-5.0) g/dL Microbiology - Last 24 Hours (Table) 09/13/18 17:00 Blood Culture Gram Stain - Preliminary Blood Blood Culture - Preliminary Coagulase Negative Staph Assessment and Plan Assessment: #1 Acute exacerbation of severe oxygen dependent chronic obstructive pulmonary disease, complicated by purulent tracheobronchitis. No clear evidence of pneumonia.CT of the chest was reviewed. #2 History of chronic tobacco dependence, states quit about 6 months ago. #3 History of stage III non-small cell lung cancer, adenocarcinoma diagnosed in November 2016. Status post chemoradiation with subsequent chemotherapy and eventual immunotherapy. Most recently on Imfinzi but having issues with profound weakness and fatigue. follow-up CT of the chest on this admission showed stable lesion unchanged compared to CT in July of 2018. #4 History of CVA/TIA. #5 Hyperlipidemia. #6 Hypothyroidism. #7 Fibromyalgia. #8 Chronic pain syndrome. #9 History of depression. #10 History of marijuana use. Recommendation: Continue present course of bronchodilators, switch patient to prednisone and tapered over the next 2-3 weeks, cleared for discharge from the pulmonary perspective, follow up on outpatient basis. Time with Patient: Less than 30
[2018-09-16 15:39] VITALS: PULSE 100
--- NOTE | 2018-09-17 15:35 | P.DS ---
Providers Date of admission: 09/13/18 18:37 Expected date of discharge: 09/16/18 Attending physician: Glenys Chang Consults: 09/13/18 18:37 Consult Physician Routine Consulting Provider: Chano Fan Consult Reason/Comments: COPD exacerbation Do you want consulting provider notified?: Yes 09/14/18 08:12 Consult Physician Routine Consulting Provider: Kaiden Mcknight Consult Reason/Comments: lung CA Do you want consulting provider notified?: Yes 09/15/18 12:42 Consult Physician Routine Consulting Provider: Rosana Swan Consult Reason/Comments: positive blood culture Do you want consulting provider notified?: Yes Primary care physician: Steffi Benoit Hospital Course: Discharge Diagnosis 1. Shortness of breath related to COPD exacerbation. 2. Non-small cell lung cancer stage III adenocarcinoma. Patient follows with Dr. Posey oncology services. Patient reports that she had immunotherapy proximally 1 month ago. Oncology services have been consulted. follow-up CT of the chest on this admission showed stable lesion unchanged compared to CT in July of 2018. 3. History of COPD 4. History of CVA 5. History of hyperlipidemia 6. History of fibromyalgia 7. History of osteoarthritis 8. History of depression 9. ex-Smoker. Patient smoked approximately half pack per day for 30 years. 10. positive blood culture with coagulase negative staph, likely skin contamination. Patient seen by ID no antibiotics needed. Hospital Course This is a 63-year-old female patient of Dr. Benoit. Patient presented to the ER with complaints of increased shortness of breath. Patient reports that over the past week she's had increased shortness of breath with activity. Patient denies any significant sputum production. Patient also states she's had increased lower peripheral edema. She does have a past medical history of lung cancer stage III when she follows with Dr. Posey. Patient reports that her last was proximally 1 month ago with immunotherapy. Patient also went for routine CT in July. Patient is home O2 dependent with 2 L. Additional medical history includes COPD, CVA, fibromyalgia, GERD, hyperlipidemia, osteoarthritis, pne umonia, chronic back pain, constipation, hiatal hernia and depression. Patient also has a smoking history of half a pack per day for 30 years. Patient has stopped smoking at this time. Chest x-ray completed showing chronic infiltrate left lateral lung base unchanged compared to old exam no heart failure. EKG completed showing normal sinus rhythm, right atrial enlargement. At this time pulmonary and oncology service is consulted. Patient started on IV Solu-Medrol. Patient reports significant improvement with shortness of breath. Patient denies chest pain. Patient denies nausea vomiting or diarrhea. Patient denies any urinary burning or frequency. On 09/15/2018 patient is alert and oriented 3 in no apparent distress she states she feels better she has less shortness of breath and less cough otherwise she denies any other symptoms there is no fever or chills no headache or dizziness no chest pain no palpitation no nausea or vomiting no abdominal pain no diarrhea and no urinary symptoms. Earlier this morning patient had a positive blood culture for gram-positive cocci IV vancomycin was added to her regimen. 09/16/2018 patient is medically stable for discharge. Patient was treated for an acute COPD exacerbation. She was seen by pulmonary service and started on IV steroids and bronchodilators. She did improve. And they are recommending a prednisone taper at discharge. Also, patient seen by ID service regarding blood culture. The blood culture grew coagulase negative staph, likely skin contamination. Patient seen by ID no antibiotics needed. Also, seen by Dr. Mcknight who will follow up outpatient and possibly restart immunotherapy. Patient Condition at Discharge: Stable Plan - Discharge Summary New Discharge Prescriptions: Continue Cevimeline [Evoxac] 30 mg PO BID Albuterol Inhaler [Ventolin Hfa Inhaler] 2 puff INHALATION RT-QID PRN PRN Reason: Shortness Of Breath Esomeprazole Magnesium [NexIUM] 40 mg PO BID Escitalopram [Lexapro] 20 mg PO DAILY Morphine Sulfate [Ms Contin] 30 mg PO BID #60 tablet.er oxyCODONE-APAP 10-325MG [Percocet 10-325 mg] 1 tab PO Q6H PRN PRN Reason: Pain Prochlorperazine [Compazine] 10 mg PO Q6H PRN PRN Reason: Nausea Budesonide-Formot 160-4.5 Mcg [Symbicort 160-4.5 Mcg Inhaler] 2 puff INHALATION RT-BID Albuterol Nebulized [Ventolin Nebulized] 2.5 mg INHALATION RT-QID PRN PRN Reason: Shortness Of Breath Ondansetron Odt [Zofran ODT] 8 mg PO Q6H PRN PRN Reason: Nausea ALPRAZolam [Xanax] 0.25 mg PO Q6H PRN PRN Reason: Anxiety Folic Acid 0.4 mg PO DAILY Cholecalciferol [Vitamin D3] 1,000 unit PO DAILY Cyanocobalamin (Vitamin B-12) [Vitamin B-12] 1,000 mcg PO BID Furosemide [Lasix] 20 mg PO DAILY PRN PRN Reason: Edema Umeclidinium [place] [Incruse Ellipta] 1 puff INHALATION RT-DAILY Levothyroxine Sodium [Synthroid] 25 mcg PO DAILY guaiFENesin [Mucinex] 600 mg PO DAILY Discharge Medication List Albuterol Inhaler [Ventolin Hfa Inhaler] 2 puff INHALATION RT-QID PRN 12/03/13 [History] Cevimeline [Evoxac] 30 mg PO BID 12/03/13 [History] Escitalopram [Lexapro] 20 mg PO DAILY 12/03/13 [History] Esomeprazole Magnesium [NexIUM] 40 mg PO BID 12/03/13 [History] Morphine Sulfate [Ms Contin] 30 mg PO BID #60 tablet.er 03/11/15 [Rx] oxyCODONE-APAP 10-325MG [Percocet 10-325 mg] 1 tab PO Q6H PRN 09/05/16 [History] Albuterol Nebulized [Ventolin Nebulized] 2.5 mg INHALATION RT-QID PRN 02/23/17 [History] Budesonide-Formot 160-4.5 Mcg [Symbicort 160-4.5 Mcg Inhaler] 2 puff INHALATION RT-BID 02/23/17 [History] Ondansetron Odt [Zofran ODT] 8 mg PO Q6H PRN 02/23/17 [History] Prochlorperazine [Compazine] 10 mg PO Q6H PRN 02/23/17 [History] ALPRAZolam [Xanax] 0.25 mg PO Q6H PRN 01/20/18 [History] Cholecalciferol [Vitamin D3] 1,000 unit PO DAILY 09/13/18 [History] Cyanocobalamin (Vitamin B-12) [Vitamin B-12] 1,000 mcg PO BID 09/13/18 [History] Folic Acid 0.4 mg PO DAILY 09/13/18 [History] Furosemide [Lasix] 20 mg PO DAILY PRN 09/13/18 [History] Levothyroxine Sodium [Synthroid] 25 mcg PO DAILY 09/13/18 [History] Umeclidinium [place] [Incruse Ellipta] 1 puff INHALATION RT-DAILY 09/13/18 [History] guaiFENesin [Mucinex] 600 mg PO DAILY 09/13/18 [History] Follow up Appointment(s)/Referral(s): Steffi Benoit MD [Primary Care Provider] - 1-2 days [facility], [NON-STAFF] - Patient Instructions/Handouts: Cefuroxime (By mouth), Prednisone (By mouth), COPD (Chronic Obstructive Pulmonary Disease) (DC), Edema (DC), Chronic Lung Disease and Infection Prevention (DC), Energy Conservation Techniques (DC), Nutrition Guidelines for People with COPD (DC) Discharge Disposition: HOME SELF-CARE
== END 2018-09-16 16:13 | disposition home or self-care (01) | DRG 190 ==
LOC: EC 15:53 → EEVIPCON 15:53 → 3NMEDONC 18:37
PROVIDERS: ADMIT Internal Medicine; ATTEND Internal Medicine
DX: J44.1 Chronic obstructive pulmonary disease with (acute) exacerbation (principal); J96.20 Acute and chronic respiratory failure, unspecified whether with hypoxia or hypercapnia; C34.12 Malignant neoplasm of upper lobe, left bronchus or lung; J44.0 Chronic obstructive pulmonary disease with (acute) lower respiratory infection; J20.9 Acute bronchitis, unspecified; F32.9 Major depressive disorder, single episode, unspecified; Z87.891 Personal history of nicotine dependence; K21.9 Gastro-esophageal reflux disease without esophagitis; E03.9 Hypothyroidism, unspecified; E78.5 Hyperlipidemia, unspecified; G89.4 Chronic pain syndrome; M79.7 Fibromyalgia; K59.00 Constipation, unspecified; M19.90 Unspecified osteoarthritis, unspecified site; Z79.51 Long term (current) use of inhaled steroids; Z79.890 Hormone replacement therapy; Z79.899 Other long term (current) drug therapy; Z85.118 Personal history of other malignant neoplasm of bronchus and lung; Z86.73 Personal history of transient ischemic attack (TIA), and cerebral infarction without residual deficits; Z92.21 Personal history of antineoplastic chemotherapy; Z92.3 Personal history of irradiation; Z99.81 Dependence on supplemental oxygen; Z87.01 Personal history of pneumonia (recurrent); Z80.9 Family history of malignant neoplasm, unspecified
CPT/HCPCS: 36415; 71046; 71260; 80053; 83735; 83880; 84439; 84443; 84484; 85025; 85610; 85730; 87040; 93005; 93306; 94640; 94644; 94760; 96374; 96375; 99291

== ENCOUNTER 2018-09-28 17:19 | Inpatient (IN) | payer MEDICARE, OTHER ==
[2018-09-28] MEDS ORDERED: methylPREDNISolone SOD SUCCI 125 MG/2 ML VIAL IV STA (17:30)
[2018-09-28] MEDS ORDERED: SODIUM CHLORIDE 0.9% 1,000 ML IV STA (17:30)
[2018-09-28] MEDS ORDERED: ALBUTEROL NEBULIZED 2.5 MG/3 ML INHALATION STA (17:30)
[2018-09-28] MEDS ORDERED: SODIUM CHLORIDE 0.9% 500 ML 500 ML IV STA (17:30)
[2018-09-28] MEDS ORDERED: IPRATROPIUM 0.5 MG/2.5 ML NEBU INHALATION STA (17:30)
[2018-09-28] MEDS ORDERED: LORazepam 2 MG/ML INJ IV STA ×3 (17:31→20:12)
[2018-09-28 18:02] LABS: Basophils % (A) 0 %; Eosinophils # (A) 0.1 k/uL (0-0.7); Eosinophils % (A) 1 %; HCT 44.7 % (34.0-46.0); HGB 13.9 gm/dL (11.4-16.0); Lymphocytes # (A) 0.3 k/uL (1.0-4.8); Lymphocytes % (A) 2 %; MCH 30.7 pg (25.0-35.0); MCHC 31.2 g/dL (31.0-37.0); MCV 98.5 fL (80.0-100.0); Macrocytosis Slight; Mean Platelet Volume 6.9; Monocytes # (A) 0.6 k/uL (0-1.0); Monocytes % (A) 3 %; Neutrophils # (A) 18.5 k/uL (1.3-7.7); Neutrophils % (A) 95 %; Platelet Count 265 k/uL (150-450); RBC 4.54 m/uL (3.80-5.40); RDW 15.2 % (11.5-15.5); VBG PH 7.44 (7.31-7.41); WBC 19.5 k/uL (3.8-10.6)
[2018-09-28 18:13] LABS: ALT 58 U/L (9-52); AST 45 U/L (14-36); Albumin 3.6 g/dL (3.5-5.0); Alkaline Phosphatase 225 U/L (38-126); Anion Gap 5 mmol/L; Blood Urea Nitrogen 15 mg/dL (7-17); Calcium 8.9 mg/dL (8.4-10.2); Carbon Dioxide 37 mmol/L (22-30); Chloride 96 mmol/L (98-107); Glucose 126 mg/dL (74-99); Potassium 3.4 mmol/L (3.5-5.1); Sodium 138 mmol/L (137-145); Total Protein 6.2 g/dL (6.3-8.2)
[2018-09-28 18:23] LABS: INR 0.9 (<1.2); Prothrombin Time 9.9 sec (9.0-12.0)
[2018-09-28 18:26] LABS: Appearance,Urine Clear (Clear); Bacteria,Urine Rare /hpf; Bilirubin,Urine Negative (Negative); Blood,Urine Negative (Negative); Color,Urine Light Yellow; Glucose,Urine (UA) Negative (Negative); Hyaline Casts,Urine 5 /lpf (0-2); Ketones,Urine Negative (Negative); Leukocyte Esterase,Urine Trace (Negative); Mucus,Urine Rare /hpf; Nitrite,Urine Negative (Negative); Protein,Urine Negative (Negative); RBC,Urine <1 /hpf (0-5); Specific Gravity,Urine 1.007 (1.001-1.035); Squamous Epithelial Cell,Urine 1 /hpf (0-4); Urobilinogen,Urine <2.0 mg/dL (<2.0); WBC,Urine 4 /hpf (0-5)
[2018-09-28] MEDS ORDERED: cefTRIAXone IN SWFI 1,000 MG/10 ML SYRINGE IVP STA (18:27)
--- NOTE | 2018-09-28 18:30 | ED ---
General Adult HPI - General Chief complaint: Altered Mental Status Stated complaint: Altered Mental Status Time Seen by Provider: 09/28/18 17:27 Source: patient, family, RN notes reviewed Mode of arrival: EMS Limitations: altered mental status - History of Present Illness Initial comments: 63-year-old female with increased dyspnea, and altered mental status. Patient is obtained from patient's friend who is at bedside. She has history of stage III lung cancer, history of COPD on home oxygen. Over the past several days she's had worsening level of consciousness and confusion, she's had increasing dyspnea with cough. She was recently admitted to the hospital and discharged home. - Related Data Home Medications Medication Instructions Recorded Confirmed Albuterol Inhaler [Ventolin Hfa 2 puff INHALATION RT-QID PRN 12/03/13 09/28/18 Inhaler] Cevimeline [Evoxac] 30 mg PO BID 12/03/13 09/28/18 Escitalopram [Lexapro] 20 mg PO DAILY 12/03/13 09/28/18 Esomeprazole Magnesium [NexIUM] 40 mg PO BID 12/03/13 09/28/18 oxyCODONE-APAP 10-325MG [Percocet 1 tab PO Q6H PRN 09/05/16 09/28/18 10-325 mg] Albuterol Nebulized [Ventolin 2.5 mg INHALATION RT-QID PRN 02/23/17 09/28/18 Nebulized] Budesonide-Formot 160-4.5 Mcg 2 puff INHALATION RT-BID 02/23/17 09/28/18 [Symbicort 160-4.5 Mcg Inhaler] Ondansetron Odt [Zofran ODT] 8 mg PO Q6H PRN 02/23/17 09/28/18 Prochlorperazine [Compazine] 10 mg PO Q6H PRN 02/23/17 09/28/18 ALPRAZolam [Xanax] 0.25 mg PO DIRECTED PRN 01/20/18 09/28/18 Cholecalciferol [Vitamin D3] 1,000 unit PO DAILY 09/13/18 09/28/18 Cyanocobalamin (Vitamin B-12) 1,000 mcg PO BID 09/13/18 09/28/18 [Vitamin B-12] Folic Acid 0.4 mg PO DAILY 09/13/18 09/28/18 Furosemide [Lasix] 40 mg PO TID 09/13/18 09/28/18 Levothyroxine Sodium [Synthroid] 25 mcg PO DAILY 09/13/18 09/28/18 Umeclidinium [place] [Incruse 1 puff INHALATION RT-DAILY 09/13/18 09/28/18 Ellipta] guaiFENesin [Mucinex] 600 mg PO DAILY PRN 09/13/18 09/28/18 LORazepam [Ativan] 0.5 mg PO Q6H PRN 09/28/18 09/28/18 Pyridoxine HCl (Vitamin B6) 100 mg PO DAILY 09/28/18 09/28/18 [Vitamin B-6] Tolterodine Tartrate [Detrol LA] 4 mg PO DAILY 09/28/18 09/28/18 Previous Rx's Medication Instructions Recorded Morphine Sulfate [Ms Contin] 30 mg PO BID #60 tablet.er 03/11/15 Allergies Allergy/AdvReac Type Severity Reaction Status Date / Time No Known Allergies Allergy Verified 09/28/18 17:39 Review of Systems ROS Statement: Those systems with pertinent positive or pertinent negative responses have been documented in the HPI. ROS Other: All systems not noted in ROS Statement are negative. Limitations: ROS unobtainable due to patients medical condition Past Medical History Past Medical History: Cancer, COPD, CVA/TIA, Fibromyalgia, GERD/Reflux, Hyperlipidemia, Osteoarthritis (OA), Pneumonia Additional Past Medical History / Comment(s): Non-small cell lung cancer stage 3 adenocarcinoma, COPD, fibromyalgia, acid reflux, hyperlipidemia, osteoarthritis, adrenal mass that has remained stable over some time, TIA history of, hiatal hernia, chronic constipation, chronic back pain, degenerative arthritis History of Any Multi-Drug Resistant Organisms: None Reported Additional Past Surgical History / Comment(s): SINUS surgery Past Anesthesia/Blood Transfusion Reactions: No Reported Reaction Past Psychological History: Depression Smoking Status: Former smoker Past Alcohol Use History: None Reported Past Drug Use History: None Reported - Past Family History Mother Family Medical History: Cancer Father Family Medical History: Cancer General Exam Limitations: altered mental status General appearance: lethargic, in distress Head exam: Present: atraumatic, normocephalic Eye exam: Present: normal appearance, PERRL ENT exam: Present: mucous membranes dry Neck exam: Present: normal inspection. Absent: tenderness, meningismus Respiratory exam: Present: respiratory distress, wheezes, decreased breath sounds Cardiovascular Exam: Present: regular rate, normal rhythm GI/Abdominal exam: Present: soft, tenderness (Right lower quadrant). Absent: distended, guarding Extremities exam: Present: normal inspection, normal capillary refill Neurological exam: Absent: alert, oriented X3, motor sensory deficit (Altered, moving all extremities symmetrically) Psychiatric exam: Present: agitated, anxious Skin exam: Present: warm, dry, cyanosis Course Vital Signs 09/28/18 09/28/18 09/28/18 17:33 17:45 17:59 Temperature 99 F Pulse Rate 99 90 92 Respiratory 28 H Rate Blood Pressure 166/116 O2 Sat by Pulse 90 L Oximetry 09/28/18 09/28/18 19:13 21:23 Temperature 99.0 F Pulse Rate 101 H 86 Respiratory 26 H 18 Rate Blood Pressure 165/105 147/90 O2 Sat by Pulse 99 Oximetry EKG Findings - EKG Comments: EKG Findings:: EKG: Sinus rhythm, biatrial enlargement, rate of 99, IL interval 108, QRS duration 78, QTC [address] segment elevation Medical Decision Making - Medical Decision Making 63-year-old female presenting with dyspnea, confusion. Patient is confused, agitated, nonfocal neurologic exam moving all extremities. History of stage III lung cancer, COPD on home oxygen. Patient's has decreased air entry, wheezing bilaterally. Initial treatment for COPD exacerbation. Workup in the emergency department reveals leukocytosis, white count 19.5. CBC shows chronic CO2 retention, venous gas as CO2 of 57. Secondary to hypercapnia and hypoxic respiratory failure. Urinalysis negative for infection. Normal lactic acid. Case Discussed with Dr. Chang, admit, pulmonary on consult. - Lab Data Result diagrams: 09/29/18 07:04 09/29/18 07:04 Lab Results 09/28/18 09/28/18 09/28/18 Range/Units 17:39 17:39 17:39 WBC 19.5 H (3.8-10.6) k/uL RBC 4.54 (3.80-5.40) m/uL Hgb 13.9 (11.4-16.0) gm/dL Hct 44.7 (34.0-46.0) % MCV 98.5 (80.0-100.0) fL MCH 30.7 (25.0-35.0) pg MCHC 31.2 (31.0-37.0) g/dL RDW 15.2 (11.5-15.5) % Plt Count 265 (150-450) k/uL Neutrophils % 95 % Lymphocytes % 2 % Monocytes % 3 % Eosinophils % 1 % Basophils % 0 % Neutrophils # 18.5 H (1.3-7.7) k/uL Lymphocytes # 0.3 L (1.0-4.8) k/uL Monocytes # 0.6 (0-1.0) k/uL Eosinophils # 0.1 (0-0.7) k/uL Basophils # 0.0 (0-0.2) k/uL Macrocytosis Slight PT 9.9 (9.0-12.0) sec INR 0.9 (<1.2) APTT 21.7 L (22.0-30.0) sec VBG pH (7.31-7.41) VBG pCO2 (37-51) mmHg VBG HCO3 (24-28) mmol/L Sodium 138 (137-145) mmol/L Potassium 3.4 L (3.5-5.1) mmol/L Chloride 96 L (98-107) mmol/L Carbon Dioxide 37 H (22-30) mmol/L Anion Gap 5 mmol/L BUN 15 (7-17) mg/dL Creatinine 0.61 (0.52-1.04) mg/dL Est GFR (CKD-EPI)AfAm >90 (>60 ml/min/1.73 sqM) Est GFR (CKD-EPI)NonAf >90 (>60 ml/min/1.73 sqM) Glucose 126 H (74-99) mg/dL Plasma Lactic Acid [place] (0.7-2.0) mmol/L Calcium 8.9 (8.4-10.2) mg/dL Magnesium 2.0 (1.6-2.3) mg/dL Total Bilirubin 1.0 (0.2-1.3) mg/dL AST 45 H (14-36) U/L ALT 58 H (9-52) U/L Alkaline Phosphatase 225 H (38-126) U/L Troponin I (0.000-0.034) ng/mL Total Protein 6.2 L (6.3-8.2) g/dL Albumin 3.6 (3.5-5.0) g/dL Urine Color Urine Appearance (Clear) Urine pH (5.0-8.0) Ur Specific [place] (1.001-1.035) Urine Protein (Negative) Urine Glucose (UA) (Negative) Urine Ketones (Negative) Urine Blood (Negative) Urine Nitrite (Negative) Urine Bilirubin (Negative) Urine Urobilinogen (<2.0) mg/dL Ur Leukocyte Esterase (Negative) Urine RBC (0-5) /hpf Urine WBC (0-5) /hpf Ur Squamous Epith Cells (0-4) /hpf Urine Bacteria (None) /hpf Hyaline Casts (0-2) /lpf Urine Mucus (None) /hpf 09/28/18 09/28/18 09/28/18 Range/Units 17:39 17:39 17:39 WBC (3.8-10.6) k/uL RBC (3.80-5.40) m/uL Hgb (11.4-16.0) gm/dL Hct (34.0-46.0) % MCV (80.0-100.0) fL MCH (25.0-35.0) pg MCHC (31.0-37.0) g/dL RDW (11.5-15.5) % Plt Count (150-450) k/uL Neutrophils % % Lymphocytes % % Monocytes % % Eosinophils % % Basophils % % Neutrophils # (1.3-7.7) k/uL Lymphocytes # (1.0-4.8) k/uL Monocytes # (0-1.0) k/uL Eosinophils # (0-0.7) k/uL Basophils # (0-0.2) k/uL Macrocytosis PT (9.0-12.0) sec INR (<1.2) APTT (22.0-30.0) sec VBG pH (7.31-7.41) VBG pCO2 (37-51) mmHg VBG HCO3 (24-28) mmol/L Sodium (137-145) mmol/L Potassium (3.5-5.1) mmol/L Chloride (98-107) mmol/L Carbon Dioxide (22-30) mmol/L Anion Gap mmol/L BUN (7-17) mg/dL Creatinine (0.52-1.04) mg/dL Est GFR (CKD-EPI)AfAm (>60 ml/min/1.73 sqM) Est GFR (CKD-EPI)NonAf (>60 ml/min/1.73 sqM) Glucose (74-99) mg/dL Plasma Lactic Acid [place] 1.0 (0.7-2.0) mmol/L Calcium (8.4-10.2) mg/dL Magnesium (1.6-2.3) mg/dL Total Bilirubin (0.2-1.3) mg/dL AST (14-36) U/L ALT (9-52) U/L Alkaline Phosphatase (38-126) U/L Troponin I 0.034 (0.000-0.034) ng/mL Total Protein (6.3-8.2) g/dL Albumin (3.5-5.0) g/dL Urine Color Light Yellow Urine Appearance Clear (Clear) Urine pH 7.0 (5.0-8.0) Ur Specific [place] 1.007 (1.001-1.035) Urine Protein Negative (Negative) Urine Glucose (UA) Negative (Negative) Urine Ketones Negative (Negative) Urine Blood Negative (Negative) Urine Nitrite Negative (Negative) Urine Bilirubin Negative (Negative) Urine Urobilinogen <2.0 (<2.0) mg/dL Ur Leukocyte Esterase Trace H (Negative) Urine RBC <1 (0-5) /hpf Urine WBC 4 (0-5) /hpf Ur Squamous Epith Cells 1 (0-4) /hpf Urine Bacteria Rare H (None) /hpf Hyaline Casts 5 H (0-2) /lpf Urine Mucus Rare H (None) /hpf 09/28/18 Range/Units 17:39 WBC (3.8-10.6) k/uL RBC (3.80-5.40) m/uL Hgb (11.4-16.0) gm/dL Hct (34.0-46.0) % MCV (80.0-100.0) fL MCH (25.0-35.0) pg MCHC (31.0-37.0) g/dL RDW (11.5-15.5) % Plt Count (150-450) k/uL Neutrophils % % Lymphocytes % % Monocytes % % Eosinophils % % Basophils % % Neutrophils # (1.3-7.7) k/uL Lymphocytes # (1.0-4.8) k/uL Monocytes # (0-1.0) k/uL Eosinophils # (0-0.7) k/uL Basophils # (0-0.2) k/uL Macrocytosis PT (9.0-12.0) sec INR (<1.2) APTT (22.0-30.0) sec VBG pH 7.44 H (7.31-7.41) VBG pCO2 57 H (37-51) mmHg VBG HCO3 38 H (24-28) mmol/L Sodium (137-145) mmol/L Potassium (3.5-5.1) mmol/L Chloride (98-107) mmol/L Carbon Dioxide (22-30) mmol/L Anion Gap mmol/L BUN (7-17) mg/dL Creatinine (0.52-1.04) mg/dL Est GFR (CKD-EPI)AfAm (>60 ml/min/1.73 sqM) Est GFR (CKD-EPI)NonAf (>60 ml/min/1.73 sqM) Glucose (74-99) mg/dL Plasma Lactic Acid [place] (0.7-2.0) mmol/L Calcium (8.4-10.2) mg/dL Magnesium (1.6-2.3) mg/dL Total Bilirubin (0.2-1.3) mg/dL AST (14-36) U/L ALT (9-52) U/L Alkaline Phosphatase (38-126) U/L Troponin I (0.000-0.034) ng/mL Total Protein (6.3-8.2) g/dL Albumin (3.5-5.0) g/dL Urine Color Urine Appearance (Clear) Urine pH (5.0-8.0) Ur Specific [place] (1.001-1.035) Urine Protein (Negative) Urine Glucose (UA) (Negative) Urine Ketones (Negative) Urine Blood (Negative) Urine Nitrite (Negative) Urine Bilirubin (Negative) Urine Urobilinogen (<2.0) mg/dL Ur Leukocyte Esterase (Negative) Urine RBC (0-5) /hpf Urine WBC (0-5) /hpf Ur Squamous Epith Cells (0-4) /hpf Urine Bacteria (None) /hpf Hyaline Casts (0-2) /lpf Urine Mucus (None) /hpf Critical Care Time Critical Care Time: Yes Total Critical Care Time: 35 Disposition Clinical Impression: Acute exacerbation of chronic obstructive airways disease, Dyspnea, Altered mental status Disposition: ADMITTED IP TO THIS [facility] Condition: Stable Is patient prescribed a controlled substance at d/c from ED?: No Decision to Admit Reason: Admit from EC Decision Date: 09/28/18 Decision Time: 21:17
[2018-09-28 18:32] LABS: Partial Thromboplastin Time 21.7 sec (22.0-30.0)
[2018-09-28] MEDS ORDERED: HYDROmorphone 1 MG/ML 1 ML SYRINGE IVP STA (18:41)
--- NOTE | 2018-09-28 19:21 | XR ---
EXAMINATION: XR chest 2V portable DATE AND TIME: 09/28/2018 6:55 PM CLINICAL INDICATION: PHH; fabian TECHNIQUE: 2 AP portable supine views COMPARISON: 09/13/2018 at 6:02 PM FINDINGS: Lungs: There is no evidence of pulmonary edema or major atelectasis. Spiculated left upper lobe bronc hogenic mass noted, unchanged. Pleural spaces: Blunted left costophrenic angle noted, nonspecific. Cardiomediastinal silhouette and bones and soft tissues are negative for acute findings. Note: Supine radiography cannot exclude abnormal gas collections. IMPRESSION: No new process.
[2018-09-28] MEDS ORDERED: ALBUTEROL NEBULIZED 2.5 MG/3 ML INHALATION PRN (21:14)
--- NOTE | 2018-09-28 21:31 | CT ---
EXAMINATION: CT brain wo con DATE AND TIME: 09/28/2018 9:11 PM CLINICAL INDICATION: PHH; Pain TECHNIQUE: Standard departmental protocol.; 1260.4; COMPARISON: None. FINDINGS: Streak-like artifacts, limiting visualization, are from the patient's upper extremities. The calvarium is intact, and there is no intracranial hemorrhage. There is no intracranial mass or mass effect. No definite new intra-axial or extra-axial attenuation defect. The paranasal sinuses, middle ear cavities, and mastoid sinus air cells are clear. The orbits are unremarkable. IMPRESSION: NO ACUTE PROCESS.
--- NOTE | 2018-09-28 21:42 | CT ---
EXAMINATION TYPE: CT abdomen pelvis w con DATE OF EXAM: 09/28/2018 COMPARISON: 01/20/2018 HISTORY: ams CT DLP: 776.8 mGycm Automated exposure control for dose reduction was used. TECHNIQUE: Helical acquisition of images was performed from the lung bases through the pelvis. CONTRAST: Performed without Oral Contrast and with IV Contrast, patient injected with 100 mL of Isovue 300. FINDINGS: LUNG BASES: No significant abnormality is appreciated. LIVER/GB: No significant abnormality is appreciated. PANCREAS: No significant abnormality is seen. SPLEEN: No significant abnormality is seen. ADRENALS: 4.2 cm left adrenal mass is redemonstrated, consistent with myelolipoma. KIDNEYS: No significant abnormality is seen. FREE AIR: No free air is visualized. RETROPERITONEAL ADENOPATHY: None visualized REPRODUCTIVE ORGANS: No significant abnormality is seen URINARY BLADDER: The bladder is moderately distended, etiology unclear. PELVIC ADENOPATHY: None visualized. OSSEOUS STRUCTURES: No significant abnormality is seen. BOWEL: No bowel obstruction, but excessive colonic stool is noted. OTHER: No acute vascular findings. IMPRESSION: URINARY BLADDER DISTENTION AND EXCESSIVE COLONIC STOOL.
[2018-09-28] MEDS ORDERED: LORazepam 1 MG TAB PO PRN (23:39)
[2018-09-28] MEDS ORDERED: oxyCODONE-APAP 10-325MG 1 EACH TAB PO PRN (23:40)
[2018-09-28] MEDS ORDERED: PROCHLORPERAZINE 10 MG TAB PO PRN (23:40)
[2018-09-28] MEDS ORDERED: HALOPERIDOL LACTATE 5 MG/ML 1 ML VIAL IM STA (23:41)
[2018-09-28] MEDS ORDERED: LORazepam 0.5 MG TAB PO PRN (23:58)
[2018-09-29] MEDS: HYDROmorphone 0.5 MG/0.5 ML SYRINGE IVP PRN ×2 (01:08→04:58)
[2018-09-29] MEDS: methylPREDNISolone SOD SUCCI 125 MG/2 ML VIAL IV SCH ×4 (01:13→20:16)
[2018-09-29] MEDS: MORPHINE SULFATE ER 30 MG TABLET PO SCH ×3 (01:16→21:08)
[2018-09-29] MEDS ORDERED: LEVOTHYROXINE 25 MCG TAB PO SCH (06:30)
[2018-09-29 07:29] LABS: Basophils % (A) 0 %; Eosinophils # (A) 0.1 k/uL (0-0.7); Eosinophils % (A) 0 %; HCT 43.5 % (34.0-46.0); HGB 14.1 gm/dL (11.4-16.0); Lymphocytes # (A) 0.3 k/uL (1.0-4.8); Lymphocytes % (A) 2 %; MCH 31.2 pg (25.0-35.0); MCHC 32.3 g/dL (31.0-37.0); MCV 96.7 fL (80.0-100.0); Mean Platelet Volume 6.7; Monocytes # (A) 0.6 k/uL (0-1.0); Monocytes % (A) 4 %; Neutrophils # (A) 13.8 k/uL (1.3-7.7); Neutrophils % (A) 93 %; Platelet Count 208 k/uL (150-450); WBC 14.8 k/uL (3.8-10.6)
[2018-09-29 07:31] LABS: VBG PH 7.57 (7.31-7.41)
[2018-09-29 07:57] LABS: ALT 79 U/L (9-52); AST 65 U/L (14-36); Albumin 3.8 g/dL (3.5-5.0); Alkaline Phosphatase 219 U/L (38-126); Anion Gap 8 mmol/L; Blood Urea Nitrogen 14 mg/dL (7-17); Carbon Dioxide 37 mmol/L (22-30); Chloride 92 mmol/L (98-107); Glucose 152 mg/dL (74-99); Potassium 2.8 mmol/L (3.5-5.1); Sodium 137 mmol/L (137-145); Total Bilirubin 1.3 mg/dL (0.2-1.3); Total Protein 6.2 g/dL (6.3-8.2)
[2018-09-29] MEDS ORDERED: PROPOFOL 10 MG/ML 20 ML VIAL IV ONE (08:15)
[2018-09-29] MEDS: IPRATROPIUM-ALBUTEROL 3 ML NEB INHALATION SCH ×4 (08:40→19:30)
[2018-09-29] MEDS ORDERED: FUROSEMIDE 40 MG TAB PO SCH (09:00)
[2018-09-29] MEDS: LEVOTHYROXINE IVP 100 MCG/5 ML VIAL IV SCH (09:25)
--- NOTE | 2018-09-29 09:54 | P.HPIM ---
History of Present Illness H&P Date: 09/29/18 This is a 63-year-old female patient of Dr. mariano. Patient presented to the hospital with complaints of altered mental status changes. She per patient's sister patient started having altered mental status possibly 2 days ago. Patient has a known past medical history of stage III lung cancer. Per patient patient has not received any recent treatment for cancer. Past medical history includes COPD, CVA, fibromyalgia, GERD, hyperlipidemia, osteoarthritis and pneumonia. Chest x-ray completed showing no new process. Head CT completed showing no acute process. CT of abdomen and pelvis dated showing urinary bladder distention excessive colonic stool. Liver enzymes slightly elevated AST 65, ALT 79 and alkaline phosphatase 219. Ammonia level 28. Urine and blood cultures have been ordered. Patient's pH on this admission 7.44 pCO2 57 HCO3 38. WBC 19.5. Influenza ordered. Patient started on Rocephin. At this time patient remains confused and are not able to follow commands. Discussed case with Dr. Jackson per critical care. Mar patient be transferred to the intensive care unit for closer monitoring. Discussed with patient's sister at bedside CODE STATUS. At this time requesting patient be full code. Patient's potassium also low at 2.8. Replacement has been ordered. Infectious disease will be consulted. Oncology service is consulted. Review of Systems please refer to HPI otherwise unremarkable Past Medical History Past Medical History: Cancer, COPD, CVA/TIA, Fibromyalgia, GERD/Reflux, Hyp erlipidemia, Osteoarthritis (OA), Pneumonia Additional Past Medical History / Comment(s): Non-small cell lung cancer stage 3 adenocarcinoma, COPD, fibromyalgia, acid reflux, hyperlipidemia, osteoarthritis, adrenal mass that has remained stable over some time, TIA history of, hiatal hernia, chronic constipation, chronic back pain, degenerative arthritis History of Any Multi-Drug Resistant Organisms: None Reported Additional Past Surgical History / Comment(s): SINUS surgery Past Anesthesia/Blood Transfusion Reactions: No Reported Reaction Past Psychological History: Depression Smoking Status: Former smoker Past Alcohol Use History: None Reported Additional Past Alcohol Use History / Comment(s): smokes < 1/2 PPD for past 30 yrs Past Drug Use History: None Reported - Past Family History Mother Family Medical History: Cancer Father Family Medical History: Cancer Medications and Allergies Home Medications Medication Instructions Recorded Confirmed Type Albuterol Inhaler [Ventolin Hfa 2 puff INHALATION RT-QID PRN 12/03/13 09/28/18 History Inhaler] Cevimeline [Evoxac] 30 mg PO BID 12/03/13 09/28/18 History Escitalopram [Lexapro] 20 mg PO DAILY 12/03/13 09/28/18 History Esomeprazole Magnesium [NexIUM] 40 mg PO BID 12/03/13 09/28/18 History Morphine Sulfate [Ms Contin] 30 mg PO BID #60 tablet.er 03/11/15 09/28/18 Rx oxyCODONE-APAP 10-325MG [Percocet 1 tab PO Q6H PRN 09/05/16 09/28/18 History 10-325 mg] Albuterol Nebulized [Ventolin 2.5 mg INHALATION RT-QID PRN 02/23/17 09/28/18 History Nebulized] Budesonide-Formot 160-4.5 Mcg 2 puff INHALATION RT-BID 02/23/17 09/28/18 History [Symbicort 160-4.5 Mcg Inhaler] Ondansetron Odt [Zofran ODT] 8 mg PO Q6H PRN 02/23/17 09/28/18 History Prochlorperazine [Compazine] 10 mg PO Q6H PRN 02/23/17 09/28/18 History ALPRAZolam [Xanax] 0.25 mg PO DIRECTED PRN 01/20/18 09/28/18 History Cholecalciferol [Vitamin D3] 1,000 unit PO DAILY 09/13/18 09/28/18 History Cyanocobalamin (Vitamin B-12) 1,000 mcg PO BID 09/13/18 09/28/18 History [Vitamin B-12] Folic Acid 0.4 mg PO DAILY 09/13/18 09/28/18 History Furosemide [Lasix] 40 mg PO TID 09/13/18 09/28/18 History Levothyroxine Sodium [Synthroid] 25 mcg PO DAILY 09/13/18 09/28/18 History Umeclidinium [place] [Incruse 1 puff INHALATION RT-DAILY 09/13/18 09/28/18 History Ellipta] guaiFENesin [Mucinex] 600 mg PO DAILY PRN 09/13/18 09/28/18 History LORazepam [Ativan] 0.5 mg PO Q6H PRN 09/28/18 09/28/18 History Pyridoxine HCl (Vitamin B6) 100 mg PO DAILY 09/28/18 09/28/18 History [Vitamin B-6] Tolterodine Tartrate [Detrol LA] 4 mg PO DAILY 09/28/18 09/28/18 History Allergies Allergy/AdvReac Type Severity Reaction Status Date / Time No Known Allergies Allergy Verified 09/28/18 17:39 Physical Exam Vitals: Vital Signs Temp Pulse Pulse Pulse Resp BP BP 09/29/18 05:00 99.1 F 102 H 22 164/90 09/29/18 00:20 94 18 09/28/18 22:28 98.4 F 97 18 09/28/18 21:23 99.0 F 86 18 147/90 09/28/18 19:13 101 H 26 H 165/105 09/28/18 17:59 92 09/28/18 17:45 90 09/28/18 17:33 99 F 99 28 H 166/116 Pulse Ox 09/29/18 05:00 97 09/29/18 00:20 09/28/18 22:28 99 09/28/18 21:23 99 09/28/18 19:13 09/28/18 17:59 09/28/18 17:45 09/28/18 17:33 90 L Intake and Output 09/28/18 09/29/18 09/29/18 22:59 06:59 14:59 Intake Total 700 Balance 700 Intake: Intake, IV Titration 700 Amount Sodium Chloride 0.9% 1, 200 000 ml @ 100 mls/hr IV . Q10H STA Rx#:[id number] Sodium Chloride 0.9% 500 500 ml 500 ml @ 999 mls/hr IV .Q31M STA Rx#:[id number] Other: Voiding Method Diaper # Voids 2 1 Weight 54.431 kg Head normocephalic Neck supple Lungs tachypenic Diminished breath sounds Heart regular rate and rhythm S1-S2, no rub or gallop Abdomen is soft nontender nondistended positive bowel sounds no hepatosplenomegaly Extremities no edema Neuro infused not able to follow commands Results CBC & Chem 7: 09/29/18 07:04 09/29/18 07:04 Labs: Abnormal Lab Results - Last 24 Hours (Table) 09/28/18 09/28/18 09/28/18 Range/Units 17:39 17:39 17:39 WBC 19.5 H (3.8-10.6) k/uL Neutrophils # 18.5 H (1.3-7.7) k/uL Lymphocytes # 0.3 L (1.0-4.8) k/uL APTT 21.7 L (22.0-30.0) sec VBG pH (7.31-7.41) VBG pCO2 (37-51) mmHg VBG HCO3 (24-28) mmol/L Potassium 3.4 L (3.5-5.1) mmol/L Chloride 96 L (98-107) mmol/L Carbon Dioxide 37 H (22-30) mmol/L Glucose 126 H (74-99) mg/dL AST 45 H (14-36) U/L ALT 58 H (9-52) U/L Alkaline Phosphatase 225 H (38-126) U/L Total Protein 6.2 L (6.3-8.2) g/dL Ur Leukocyte Esterase (Negative) Urine Bacteria (None) /hpf Hyaline Casts (0-2) /lpf Urine Mucus (None) /hpf 09/28/18 09/28/18 09/29/18 Range/Units 17:39 17:39 07:04 WBC 14.8 H (3.8-10.6) k/uL Neutrophils # 13.8 H (1.3-7.7) k/uL Lymphocytes # 0.3 L (1.0-4.8) k/uL APTT (22.0-30.0) sec VBG pH 7.44 H (7.31-7.41) VBG pCO2 57 H (37-51) mmHg VBG HCO3 38 H (24-28) mmol/L Potassium (3.5-5.1) mmol/L Chloride (98-107) mmol/L Carbon Dioxide (22-30) mmol/L Glucose (74-99) mg/dL AST (14-36) U/L ALT (9-52) U/L Alkaline Phosphatase (38-126) U/L Total Protein (6.3-8.2) g/dL Ur Leukocyte Esterase Trace H (Negative) Urine Bacteria Rare H (None) /hpf Hyaline Casts 5 H (0-2) /lpf Urine Mucus Rare H (None) /hpf 09/29/18 09/29/18 Range/Units 07:04 07:04 WBC (3.8-10.6) k/uL Neutrophils # (1.3-7.7) k/uL Lymphocytes # (1.0-4.8) k/uL APTT (22.0-30.0) sec VBG pH 7.57 H (7.31-7.41) VBG pCO2 (37-51) mmHg VBG HCO3 35 H (24-28) mmol/L Potassium 2.8 L (3.5-5.1) mmol/L Chloride 92 L (98-107) mmol/L Carbon Dioxide 37 H (22-30) mmol/L Glucose 152 H (74-99) mg/dL AST 65 H (14-36) U/L ALT 79 H (9-52) U/L Alkaline Phosphatase 219 H (38-126) U/L Total Protein 6.2 L (6.3-8.2) g/dL Ur Leukocyte Esterase (Negative) Urine Bacteria (None) /hpf Hyaline Casts (0-2) /lpf Urine Mucus (None) /hpf Thrombosis Risk Factor Assmnt - Choose All That Apply Any of the Below Risk Factors Present?: Yes Each Factor Represents 1 point: Abnormal pulmonary function (COPD), Medical pt on bed rest Other Risk Factors: Yes Each Risk Factor Represents 2 Points: Age 61-74 years, Patient confined to bed Other congenital or acquired thrombophilia - If yes, enter type in comment: No Thrombosis Risk Factor Assessment Total Risk Factor Score: 6 Thrombosis Risk Factor Assessment Level: High Risk Assessment and Plan Assessment: 1. Altered mental status changes. Ammonia level 28. Head CT completed showing no acute process. Abdomen and pelvis CT completed showing urinary bladder d istention excessive colonic stool. Urine and blood cultures ordered. Influenza ordered. 2. Hypercapnia and hypoxic respiratory failure with known history of COPD. Initial pH on venous blood gas 7.44 pCO2 57 and HCO3 38. pulmonary services following 3. Leukocytosis. Initial white blood cell 19.5. Chest x-ray completed showing no new process. Patient started on Rocephin. Infectious disease consulted. Urine and blood cultures ordered. Influenza ordered 4. Hypokalemia. Potassium 2.8. Will replace per protocol 5. Non-small cell lung cancer stage III adenocarcinoma. Per patient's family patient has not received treatment for multiple months. Oncology service is consulted. Pulmonary service is consulted 6. History of COPD. Patient currently on Solu-Medrol and DuoNeb breathing treatments 7. History of CVA 8. History of osteoarthritis 9. History of hyperlipidemia 10. History of fibromyalgia 11. History of depression 12. Ex-smoker. Patient's both proximally half pack per day for 30 years 13. Elevated liver enzymes. AST is 65 ALT 79 alkaline phosphatase DVT prophylaxis Lovenox. GI prophylaxis Protonix Patient's sister is at bedside. Patient's sister states that patient is a full code Discussed case with Dr. Jackson per critical care. At this time recommend patient be transferred to the intensive care unit for closer monitoring Critical care, oncology service and infectious disease has been consulted Blood, urine and influenza has been ordered Time with Patient: Greater than 30 (Greater than 60% of the total time spent in counseling and coordination of care. I performed an examination of the patient and discussed their management with the Nurse Practitioner. I have reviewed the Nurse Practitioner's notes and agree with the documented findings and plan of care)
[2018-09-29] MEDS: POTASSIUM CHLORIDE 10 MEQ in WATER FOR INJECTION 1 100ML.BAG IVPB SCH ×6 (10:12→21:08)
[2018-09-29] MEDS ORDERED: VANCOMYCIN IV PER PHARMACY 1 EACH MISC MISCELLANE PRN (11:28)
[2018-09-29] MEDS ORDERED: NALOXONE 0.4 MG/ML 1 ML VIAL IV STA (11:29)
[2018-09-29] MEDS ORDERED: VANCOMYCIN 1,000 MG in SODIUM CHLORIDE 0.9% 250 ML IVPB SCH (12:00)
[2018-09-29 12:02] LABS: Glucose,Whole Blood 156 mg/dL (75-99)
[2018-09-29 12:20] LABS: ABG Base Excess 15.9 mmol/L; ABG HCO3 39 mmol/L (21-25); ABG PCO2 47 mmHg (35-45); ABG PH 7.53 (7.35-7.45); ABG PO2 136 mmHg (83-108); ABG TCO2 40 mmol/L (19-24)
[2018-09-29] MEDS: CLEVIDIPINE BUTYRATE 25 MG in EMPTY BAG 1 BAG IV SCH (12:20)
--- NOTE | 2018-09-29 14:18 | P.CNPUL ---
History of Present Illness Consult date: 09/29/18 Chief complaint: Altered mental status, lung cancer History of present illness: This is a very pleasant 63-year-old female patient who follows with Dr. Benoit as her primary care physician. She has a history of CVA/TIA, fibromyalgia, gastroesophageal reflux disease, hyperlipidemia, hypothyroidism, chronic back pain, depression. She also has a history of chronic tobacco dependence, oxygen dependent chronic obstructive pulmonary disease with an FEV1 value of 56% of predicted, and non-small cell lung cancer stage III adenocarcinoma. She follows with Dr. Fan in our office. This was diagnosed by an FNA of a left upper lobe lesion by IR in November 2016. She had received concurrent chemoradiation with subsequent additional chemotherapy and then placed on maintenance mmunotherapy of Imfinzi back in December 2017. Her last PET scan in March 2018 revealed continued left upper lobe mass with irregular margins extending to the pleural surface, spiculated appearance but was stable compared to previous and October 2017. The SUV value was only 1.7. Subsequent computed tomography scan of the chest in July 2018 revealed a stable and slightly smaller spiculated mass of the left upper lobe measuring 2.5 x 2.4 cm versus 3.0 x 2.6 previous. No evidence of recurrence or metastasis. The patient was in the hospital back in early September 2018 and she was having ongoing issues with nausea vomiting profound weakness and fatigue. She decided to stop taking the immunotherapy. She had been treated for his COPD exacerbation 08/22/[address] our office [address] Dr. Fan where she received steroids and Bactrim. She did improve for the first week or so. She presented to the emergency room yesterday with complaints of increasing shortness of breath cough and congestion. She did have some lower extremity edema. She was still quite weak and fatigued. ome dyspnea on exertion. The patient was discharged home on 09/17/2018 as the patient shortness of breath improved and the patient recovered from her acute COPD exacerbation and she was discharged home on her usual routine medications which included also morphine sulfate 30 mg by mouth twice a day Percocet 04/11/2025 every 6 hours and a when necessary basis. In terms of her lung medication she was maintained on a combination of Symbicort and Incruse. She is also on Synthroid 25 g by mouth daily. She was given Lasix to be taken on an as needed basis. The patient came in yesterday to the burst department 3 day history of altered mental status. According to the family the patient was acting weird. She was acting unusual and she was confused. She was also very weak and she was having episodes of fall. I do see a bruise over her forehead. The family tells that she did not have any active had trauma. No seizure activity. No neck stiffness. No documented fever. She was thrashing significantly yesterday. A CAT scan of the head was done that showed no acute process. CAT scan of abdomen and pelvis was done that showed urinary bladder distention along with extensive colonic stool. The patient's ammonia level was at 28. Urine and blood cultures were ordered. The influenza screen was negative. The that was at 19.7 the patient was given a dose of 1 g of Rocephin and she was admitted to the oncology unit. Overnight the patient continued to be the same. Earlier this morning I was informed about this patient by the nurse practitioners and I was able to see it on the floor and I asked her to be transferred to the intensive care unit. She did not have any neck stiffness. No fever. She was at times morning. Other times she would open up her eyes and follows some simple commands. I was told that this is an improvement in her condition compared to yesterday. She was able to follow some simple commands however she has not been consistent in following orders. His speech is minimal and the patient may safely worse. She denies being in pain. Urine toxin was ordered. She was given a dose of Narcan here in the ICU without much improvement. Blood gases showed a pH of 7.3 with a pCO2 of 47 and pO2 of 136 and there is no evidence of any CO2 narcosis. Her white cell count is down to 14.8. The rest of the blood work is all within normal limits with a exception of some mild elevation of the LFTs with an AST of 65, ALT of 79 and alkaline phosphatase of 219. Troponins of 0.04. Serum albumin is at 3.8. The coagulation profile is within normal. The chest x-ray is not showing any acute process. Review of Systems CONSTITUTIONAL: Looked okay and a full review of system. I interviewed the family. The patient is currently altered in terms of her mentation. Most of the positive findings and the negative findings were mentioned in my HPI and in my review of system. A 14 point review of system was done along with the family. EYES: Denies change in vision. EARS, NOSE, MOUTH, THROAT: Denies headaches, denies sore throat. CARDIOVASCULAR: Denies chest pain, palpitations or syncopal episodes. RESPIRATORY: Positive for shortness of breath, cough, congestion without hemoptysis. GASTROINTESTINAL: Denies change in appetite, denies abdominal pain GENITOURINARY: Denies hematuria, denies infections. MUSKULOSKELETAL: Positive for muscle fatigue and weakness, generalized malaise INTEGUMENTARY: Denies rash, denies eczema. NEUROLOGICAL: Denies recent memory loss, no recent seizure activity. The patient was altered in terms of her mentation over the past 3-4 days. She has been progressively getting worse and weak and she has been falling and has become unsteady in her gait also. No seizure activity was noted. No headaches. No neck stiffness. PSYCHIATRIC: Positive for depression. HEMATOLOGIC/LYMPHATIC: Denies anemia, denies enlarged lymph nodes. Past Medical History Past Medical History: Cancer, COPD, CVA/TIA, Fibromyalgia, GERD/Reflux, Hyperlipidemia, Osteoarthritis (OA), Pneumonia Additional Past Medical History / Comment(s): Non-small cell lung cancer stage 3 adenocarcinoma, COPD, fibromyalgia, acid reflux, hyperlipidemia, osteoarthritis, adrenal mass that has remained stable over some time, TIA history of, hiatal hernia, chronic constipation, chronic back pain, degenerative arthritis History of Any Multi-Drug Resistant Organisms: None Reported Additional Past Surgical History / Comment(s): SINUS surgery Past Anesthesia/Blood Transfusion Reactions: No Reported Reaction Past Psychological History: Depression Smoking Status: Former smoker Past Alcohol Use History: None Reported Additional Past Alcohol Use History / Comment(s): smokes < 1/2 PPD for past 30 yrs Past Drug Use History: None Reported - Past Family History Mother Family Medical History: Cancer Father Family Medical History: Cancer Medications and Allergies Home Medications Medication Instructions Recorded Confirmed Type Albuterol Inhaler [Ventolin Hfa 2 puff INHALATION RT-QID PRN 12/03/13 09/28/18 History Inhaler] Cevimeline [Evoxac] 30 mg PO BID 12/03/13 09/28/18 History Escitalopram [Lexapro] 20 mg PO DAILY 12/03/13 09/28/18 History Esomeprazole Magnesium [NexIUM] 40 mg PO BID 12/03/13 09/28/18 History Morphine Sulfate [Ms Contin] 30 mg PO BID #60 tablet.er 03/11/15 09/28/18 Rx oxyCODONE-APAP 10-325MG [Percocet 1 tab PO Q6H PRN 09/05/16 09/28/18 History 10-325 mg] Albuterol Nebulized [Ventolin 2.5 mg INHALATION RT-QID PRN 02/23/17 09/28/18 History Nebulized] Budesonide-Formot 160-4.5 Mcg 2 puff INHALATION RT-BID 02/23/17 09/28/18 History [Symbicort 160-4.5 Mcg Inhaler] Ondansetron Odt [Zofran ODT] 8 mg PO Q6H PRN 02/23/17 09/28/18 History Prochlorperazine [Compazine] 10 mg PO Q6H PRN 02/23/17 09/28/18 History ALPRAZolam [Xanax] 0.25 mg PO DIRECTED PRN 01/20/18 09/28/18 History Cholecalciferol [Vitamin D3] 1,000 unit PO DAILY 09/13/18 09/28/18 History Cyanocobalamin (Vitamin B-12) 1,000 mcg PO BID 09/13/18 09/28/18 History [Vitamin B-12] Folic Acid 0.4 mg PO DAILY 09/13/18 09/28/18 History Furosemide [Lasix] 40 mg PO TID 09/13/18 09/28/18 History Levothyroxine Sodium [Synthroid] 25 mcg PO DAILY 09/13/18 09/28/18 History Umeclidinium [place] [Incruse 1 puff INHALATION RT-DAILY 09/13/18 09/28/18 History Ellipta] guaiFENesin [Mucinex] 600 mg PO DAILY PRN 09/13/18 09/28/18 History LORazepam [Ativan] 0.5 mg PO Q6H PRN 09/28/18 09/28/18 History Pyridoxine HCl (Vitamin B6) 100 mg PO DAILY 09/28/18 09/28/18 History [Vitamin B-6] Tolterodine Tartrate [Detrol LA] 4 mg PO DAILY 09/28/18 09/28/18 History Allergies Allergy/AdvReac Type Severity Reaction Status Date / Time No Known Allergies Allergy Verified 09/28/18 17:39 Physical Exam Vitals: Vital Signs Temp Pulse Pulse Pulse Resp BP BP 09/29/18 13:33 32 H 09/29/18 05:00 99.1 F 102 H 22 164/90 09/29/18 00:20 94 18 09/28/18 22:28 98.4 F 97 18 09/28/18 21:23 99.0 F 86 18 147/90 09/28/18 19:13 101 H 26 H 165/105 09/28/18 17:59 92 09/28/18 17:45 90 09/28/18 17:33 99 F 99 28 H 166/116 Pulse Ox 09/29/18 13:33 09/29/18 05:00 97 09/29/18 00:20 09/28/18 22:28 99 09/28/18 21:23 99 09/28/18 19:13 09/28/18 17:59 09/28/18 17:45 09/28/18 17:33 90 L Intake and Output 09/28/18 09/29/18 09/29/18 22:59 06:59 14:59 Intake Total 700 0.333 Balance 700 0.333 Intake: Intake, IV Titration 700 0.333 Amount Clevidipine Butyrate 25 0.333 mg In Empty Bag 1 bag @ 1 MG/HR 2 mls/hr IV .Q24H LORETA Rx#:[id number] Sodium Chloride 0.9% 1, 200 000 ml @ 100 mls/hr IV . Q10H STA Rx#:[id number] Sodium Chloride 0.9% 500 500 ml 500 ml @ 999 mls/hr IV .Q31M STA Rx#:[id number] Other: Voiding Method Diaper Indwelling Catheter # Voids 2 1 Weight 54.431 kg 54.431 kg Gen. appearance the patient is quite restless in bed. She tries to sleep on her right side or left side. She was sleeping on her back. She opens up her eyes upon demand. She follows some commands however this has not been a consistent finding. I noticed that the patient is withdrawing to painful diminished in all 4 extremities. She will grimace to painful stimulation. No seizure activity has been noted. He is tachypneic. However, she is not seem to be in acute respiratory distress. Head exam was generally normal. There was no scleral icterus or corneal arcus. Mucous membranes were moist. Neck was supple and without jugular venous distension, thyromegaly, or carotid bruits. Carotids were easily palpable bilaterally. There was no adenopathy. Lungs were clear to auscultation and percussion, and with normal diaphragmatic excursion. No wheezes or rales were noted. There is some few scattered expiratory wheezes throughout the lung amezcua bilaterally. Heart sounds are tachycardic, normal S1-S2,Cardiac exam revealed the PMI to be normally situated and sized. The rhythm was regular and no extrasystoles were noted during several minutes of auscultation. The first and second heart sounds were normal and physiologic splitting of the second heart sound was noted. There were no murmurs, rubs, clicks, or gallops. Abdominal exam revealed normal bowel sounds. The abdomen was soft, non-tender, and without masses, organomegaly, or appreciable enlargement of the abdominal aorta. Examination of the extremities revealed easily palpable radial, femoral and pedal pulses. There was no cyanosis, clubbing or edema. Examination of the skin revealed no evidence of significant rashes, suspicious appearing nevi or other concerning lesions. Neurologically, the patient is able to sense painful stimulation she is withdrawing her extremities all 4 without any limitation from painful stimulation. No Babinski. No clonus. No facial asymmetry. Pupils around 5 mm in size and they're reactive to light. No nystagmus. She would follow commands on and off however this has not been consistent. She is restless. She was thrush in bed. She is encephalopathic obviously for now. Results - Laboratory Findings CBC and BMP: 09/29/18 07:04 09/29/18 07:04 ABG ABG pH 7.53 (7.35-7.45) H 09/29/18 12:14 ABG pCO2 47 mmHg (35-45) H 09/29/18 12:14 ABG pO2 136 mmHg (83-108) H 09/29/18 12:14 ABG O2 Saturation 98.0 % (94-97) H 09/29/18 12:14 PT/INR, D-dimer PT 9.9 sec (9.0-12.0) 09/28/18 17:39 INR 0.9 (<1.2) 09/28/18 17:39 Abnormal lab findings: Abnormal Labs 09/28/18 09/28/18 09/28/18 17:39 17:39 17:39 WBC 19.5 H Neutrophils # 18.5 H Lymphocytes # 0.3 L APTT 21.7 L ABG pH ABG pCO2 ABG pO2 ABG HCO3 ABG Total CO2 ABG O2 Saturation VBG pH VBG pCO2 VBG HCO3 Potassium 3.4 L Chloride 96 L Carbon Dioxide 37 H Glucose 126 H POC Glucose (mg/dL) AST 45 H ALT 58 H Alkaline Phosphatase 225 H Total Protein 6.2 L Ur Leukocyte Esterase Urine Bacteria Hyaline Casts Urine Mucus 09/28/18 09/28/18 09/29/18 17:39 17:39 07:04 WBC 14.8 H Neutrophils # 13.8 H Lymphocytes # 0.3 L APTT ABG pH ABG pCO2 ABG pO2 ABG HCO3 ABG Total CO2 ABG O2 Saturation VBG pH 7.44 H VBG pCO2 57 H VBG HCO3 38 H Potassium Chloride Carbon Dioxide Glucose POC Glucose (mg/dL) AST ALT Alkaline Phosphatase Total Protein Ur Leukocyte Esterase Trace H Urine Bacteria Rare H Hyaline Casts 5 H Urine Mucus Rare H 09/29/18 09/29/18 09/29/18 07:04 07:04 11:50 WBC Neutrophils # Lymphocytes # APTT ABG pH ABG pCO2 ABG pO2 ABG HCO3 ABG Total CO2 ABG O2 Saturation VBG pH 7.57 H VBG pCO2 VBG HCO3 35 H Potassium 2.8 L Chloride 92 L Carbon Dioxide 37 H Glucose 152 H POC Glucose (mg/dL) 156 H AST 65 H ALT 79 H Alkaline Phosphatase 219 H Total Protein 6.2 L Ur Leukocyte Esterase Urine Bacteria Hyaline Casts Urine Mucus 09/29/18 12:14 WBC Neutrophils # Lymphocytes # APTT ABG pH 7.53 H ABG pCO2 47 H ABG pO2 136 H ABG HCO3 39 H ABG Total CO2 40 H ABG O2 Saturation 98.0 H VBG pH VBG pCO2 VBG HCO3 Potassium Chloride Carbon Dioxide Glucose POC Glucose (mg/dL) AST ALT Alkaline Phosphatase Total Protein Ur Leukocyte Esterase Urine Bacteria Hyaline Casts Urine Mucus - Diagnostic Findings Chest x-ray: image reviewed Assessment and Plan Plan: Assessment 1 acute/subacute mental status change with a negative CAT scan of the brain. Consider underlying encephalopathy which could be multifactorial. Consider drug induced encephalopathy. Consider viral encephalitis. The patient does not show any signs of bacterial meningitis at this point in time. Metabolic encephalopathy with probably underlying infection disorders cannot be completely ruled out also. No seizure activity. No signs of any CVA as the patient's neurologic exam is nonfocal. 2 stage III non-small cell lung cancer post-chemoradiation therapy and the patient was receiving immunotherapy on outpatient basis 3 previous history of CVA/TIA 4 COPD 5 hypertension 6 hyperlipidemia 7 osteoarthritis 8 fibromyalgia 9 chronic back pain 10 depression 11 history of marijuana use Plan The patient will be moved to the intensive care unit. We'll obtain a follow-up CAT scan of the next 24 hours to obtain a follow-up on the original CAT scan of the head. We'll obtain urine cultures. Obtain blood cultures. However this patient with a combination of Rocephin and vancomycin as an empiric antibiotic coverage. May the lumbar puncture in regards to her ongoing altered mentation. May consider even an MRI of the brain if the patient is able to tolerate the test. Awaiting urine dressing. We'll give a trial of Narcan. DVT and GI prophylaxis. Close monitoring here in the ICU. We'll continue to follow.
[2018-09-29] MEDS: HALOPERIDOL LACTATE 5 MG/ML 1 ML VIAL IVP PRN ×2 (15:00→15:20)
[2018-09-29] MEDS: PROPOFOL 1,000 MG in EMPTY BAG 1 BAG IV SCH ×2 (15:20→19:16)
[2018-09-29] MEDS ORDERED: CISATRACURIUM 2 MG/ML 5 ML VIAL IV ONE ×3 (15:20→21:32)
[2018-09-29 15:34] LABS: ABG Base Excess 12.3 mmol/L; ABG HCO3 34 mmol/L (21-25); ABG Oxygen Saturation 98.9 % (94-97); ABG PCO2 38 mmHg (35-45); ABG PO2 >400 mmHg (83-108); ABG TCO2 36 mmol/L (19-24)
[2018-09-29 15:36] LABS: ABG PH 7.56 (7.35-7.45)
[2018-09-29] MEDS ORDERED: HYDROmorphone 1 MG/ML 1 ML SYRINGE ONE (15:55)
--- NOTE | 2018-09-29 15:57 | XR ---
EXAMINATION TYPE: XR chest 1V portable DATE OF EXAM: 09/29/2018 CLINICAL HISTORY: Line placement. TECHNIQUE: Single AP portable supine view of the chest is obtained. COMPARISON: Chest x-ray from one day earlier and older studies. CT chest September 14, 2018. FINDINGS: There is new left subclavian central venous catheter terminating in SVC. There is new orog astric tube projecting below diaphragm. There is new endotracheal tube at aortic knob level, approxim ately 3 cm above ace. There is chronic parenchymal change with chronic blunting left lateral costophrenic angle corresponds to prominent pleural-based fat. There is no new suspicious focal airspace opacity or pneumothorax se en bilaterally. Cardiac silhouette size is stable and within normal limits with atherosclerotic conklin e in aortic knob. Osseous structures are intact. IMPRESSION: 1. New tubes and lines satisfactory in position as detailed above. No pneumothorax is evident. 2. No suspicious acute pulmonary process.
[2018-09-29] MEDS: ACYCLOVIR SODIUM 500 MG in SODIUM CHLORIDE 0.9% 100 ML IVPB SCH (16:22)
[2018-09-29 16:42] LABS: Glucose,CSF 103 mg/dL (40-70); Total Protein,CSF 67 mg/dL (12-60)
[2018-09-29 16:59] LABS: Appearance,CSF Clear; CSF Tube Number 4; CSF Tube Volume 1.1; Nucleated Cells, CSF 1 u/L (0-5); Red Blood Cell,CSF 1 u/L (0-10)
[2018-09-29] MEDS: HYDROmorphone 1 MG/ML 1 ML SYRINGE IVP PRN (17:20)
[2018-09-29] MEDS: fentaNYL (PF) 1,000 MCG in SODIUM CHLORIDE 0.9% 80 ML IV SCH (17:29)
[2018-09-29] MEDS: VANCOMYCIN 1,000 MG in SODIUM CHLORIDE 0.9% 250 ML IVPB SCH (18:10)
[2018-09-29] MEDS ORDERED: SODIUM CHLORIDE 0.9% 2,000 ML IV ONE (18:23)
--- NOTE | 2018-09-29 18:56 | PCN ---
PROCEDURE NOTE PROCEDURE: Intubation. PREOP DIAGNOSES: 1. Acute respiratory failure. 2. Altered mental status. POSTOP DIAGNOSES: 1. Acute respiratory failure. 2. Altered mental status. ENDOTRACHEAL INTUBATION: A time-out was completed verifying correct patient, procedure, site, positioning, and implant(s) or special equipment if applicable. The patient was positioned appropriately and a #4 MAC blade to intubate this patient. I intubated the patient with a #8 endotracheal tube. Endotracheal tube was placed under direct laryngoscopy. The tube was anchored at 22 cm at the teeth. Correct placement was confirmed by presence of bilateral breath sounds without air sounds in the abdomen on auscultation. An end-tidal CO2 monitor was also used to confirm tracheal placement of the ET tube. A chest x-ray was ordered to assess for pneumothorax and verify endotracheal tube placement. The patient tolerated the procedure well and there were no complications. MMODL / IJN: [id number] /
--- NOTE | 2018-09-29 18:59 | PCN ---
PROCEDURE NOTE PROCEDURE: Insertion of a triple-lumen catheter. SITE OF INSERTION: The left subclavian vein. PREOP DIAGNOSES: 1. Acute respiratory failure. 2. Altered mental status. POSTOP DIAGNOSES: 1. Acute respiratory failure. 2. Altered mental status. TRIPLE LUMEN CATHETER PLACEMENT: Indication Hemodynamic monitoring/Intravenous access. A time-out was completed verifying correct patient, procedure, site, positioning, and implant(s) or special equipment if applicable. The patient was placed in a dependent position appropriate for triple lumen catheter placement based on the vein to be cannulated. The patient's left shoulder was prepped and draped in sterile fashion. 1% Lidocaine was used to anesthetize the surrounding skin area. A triple lumen 9F Cordis catheter was introduced into the subclavian vein using Seldinger technique. The catheter was threaded smoothly over the guide wire and appropriate blood return was obtained. Each lumen of the catheter was evacuated of air and flushed with sterile saline. The catheter was then sutured in place to the skin and a sterile dressing applied. Perfusion to the extremity distal to the point of catheter insertion was checked and found to be adequate. No complications. MMODL / IJN: [id number] /
[2018-09-29 19:06] LABS: Glucose,Whole Blood 134 mg/dL (75-99)
--- NOTE | 2018-09-29 19:06 | PCN ---
PROCEDURE NOTE Indication for the procedure: Altered mental status The procedure is 09/29/2018 Procedure was done by Dr. Jakob V PROCEDURE: Lumbar puncture. Lower lumbar puncture was done while the patient was intubated on mechanical ventilator. The patient was positioned on her right lateral side with the hips and the knees flexed. The back was cleaned with ChloraPrep x2. Following that, the skin was anesthetized using 1% lidocaine. A lumbar puncture needle was successfully inserted into the CSF space and a total of 10 mL of cerebrospinal fluid was aspirated without any complications. The fluid was clear and white. The patient tolerated the procedure well. The needle was removed. An appropriate dressing was applied. MMODL / IJN: [id number] / MTDD
--- NOTE | 2018-09-29 19:06 | PCN ---
PROCEDURE NOTE PROCEDURE: Insertion of arterial line catheter. SITE OF INSERTION: The right radial artery. ARTERIAL LINE PLACEMENT: Indications: Hemodynamic monitoring. A time-out was completed verifying correct patient, procedure, site, positioning, and implant(s) or special equipment if applicable. Alex's test was performed to ensure adequate perfusion. The patient's right wrist was prepped and draped in sterile fashion. 1% Lidocaine was used to anesthetize the area. An 18G Arrow arterial line was introduced into the radial artery. The catheter was threaded over the guide wire and the needle was removed with appropriate pulsatile blood return. Blood loss was minimal. The catheter was then sutured in place to the skin and a sterile dressing applied. Perfusion to the extremity distal to the point of catheter insertion was checked and found to be adequate. The patient tolerated the procedure well and there were no complications. No bedside complications or bleeding. MMODL / IJN: [id number] /
[2018-09-29] MEDS ORDERED: FUROSEMIDE 10 MG/ML 4 ML VIAL IV SCH (21:00)
--- NOTE | 2018-09-29 23:00 | CT ---
EXAM: CT Head Without Intravenous Contrast CLINICAL HISTORY: mental status changes TECHNIQUE: Axial computed tomography images of the head/brain without intravenous contrast. CTDI is 0.085, 0.085, 51.7 mGy and DLP is 1336.4 mGy-cm. This CT exam was performed using one or more of the following dose reduction techniques: automated exposure control, adjustment of the mA and/or kV according to patient size, and/or use of iterative reconstruction technique. COMPARISON: 09/28/2018 FINDINGS: Brain: No acute intracranial hemorrhage, large hyperdensity, or significant mass effect. Nonspecific areas of hypoattenuation in the periventricular white matter likely represent the sequela of chronic small vessel ischemic disease. Retrocerebellar cyst. Ventricles: Ventricular and sulcal prominence commensurate with the patient's age. Bones/joints: Unremarkable. No acute fracture. Soft tissues: Unremarkable. Sinuses: Unremarkable. Mastoid air cells: Unremarkable. IMPRESSION: No acute intracranial abnormality.
[2018-09-29] MEDS: IPRATROPIUM-ALBUTEROL 3 ML NEB INHALATION PRN (23:16)
[2018-09-29 23:40] LABS: Glucose,Whole Blood 113 mg/dL (75-99)
[2018-09-30] MEDS: NOREPINEPHRINE 4 MG in SODIUM CHLORIDE 0.9% 250 ML IV SCH ×2 (00:03→20:27)
[2018-09-30] MEDS: methylPREDNISolone SOD SUCCI 125 MG/2 ML VIAL IV SCH ×5 (00:08→23:38)
[2018-09-30] MEDS: ACYCLOVIR SODIUM 500 MG in SODIUM CHLORIDE 0.9% 100 ML IVPB SCH ×4 (00:09→23:38)
[2018-09-30] MEDS: fentaNYL (PF) 1,000 MCG in SODIUM CHLORIDE 0.9% 80 ML IV SCH ×5 (00:20→23:40)
[2018-09-30] MEDS: SODIUM CHLORIDE 0.9% 1,000 ML IV SCH ×3 (00:24→20:26)
[2018-09-30] MEDS: PROPOFOL 1,000 MG in EMPTY BAG 1 BAG IV SCH ×5 (01:36→23:41)
[2018-09-30] MEDS: VANCOMYCIN 1,000 MG in SODIUM CHLORIDE 0.9% 250 ML IVPB SCH ×3 (01:55→20:25)
[2018-09-30] MEDS: IPRATROPIUM-ALBUTEROL 3 ML NEB INHALATION PRN (03:11)
[2018-09-30 04:27] LABS: Basophils % (A) 0 %; Eosinophils % (A) 0 %; HGB 11.4 gm/dL (11.4-16.0); Lymphocytes # (A) 0.2 k/uL (1.0-4.8); Lymphocytes % (A) 1 %; MCH 31.7 pg (25.0-35.0); MCHC 32.6 g/dL (31.0-37.0); MCV 97.1 fL (80.0-100.0); Mean Platelet Volume 6.6; Monocytes # (A) 0.5 k/uL (0-1.0); Monocytes % (A) 3 %; Neutrophils # (A) 14.2 k/uL (1.3-7.7); Neutrophils % (A) 95 %; Platelet Count 165 k/uL (150-450); RDW 15.2 % (11.5-15.5); WBC 14.9 k/uL (3.8-10.6)
[2018-09-30 04:52] LABS: ALT 55 U/L (9-52); AST 37 U/L (14-36); Albumin 2.3 g/dL (3.5-5.0); Alkaline Phosphatase 148 U/L (38-126); Anion Gap 1 mmol/L; Blood Urea Nitrogen 14 mg/dL (7-17); Calcium 8.1 mg/dL (8.4-10.2); Carbon Dioxide 31 mmol/L (22-30); Chloride 105 mmol/L (98-107); Glucose 119 mg/dL (74-99); Magnesium 1.7 mg/dL (1.6-2.3); Potassium 2.9 mmol/L (3.5-5.1); Sodium 137 mmol/L (137-145); Total Bilirubin 0.7 mg/dL (0.2-1.3); Total Protein 4.3 g/dL (6.3-8.2)
[2018-09-30 05:05] LABS: ABG Base Excess 6.6 mmol/L; ABG HCO3 31 mmol/L (21-25); ABG Oxygen Saturation 99.5 % (94-97); ABG PCO2 44 mmHg (35-45); ABG PH 7.45 (7.35-7.45); ABG PO2 195 mmHg (83-108); ABG TCO2 32 mmol/L (19-24)
[2018-09-30] MEDS ORDERED: Potassium Replacement Protocol 1 EACH MISC MISCELLANE PRN (05:27)
[2018-09-30] MEDS ORDERED: Magnesium Replacement Protocol 1 EACH MISC MISCELLANE PRN (05:28)
[2018-09-30] MEDS: POTASSIUM CHLORIDE 20 MEQ in WATER FOR INJECTION 1 100ML.BAG IVPB SCH ×3 (06:08→11:25)
[2018-09-30 06:15] LABS: Glucose,Whole Blood 125 mg/dL (75-99)
[2018-09-30] MEDS: MAGNESIUM SULFATE-D5W PMX 1 GM in DEXTROSE/WATER 1 100ML.BAG IVPB SCH ×2 (06:36→09:30)
--- NOTE | 2018-09-30 07:22 | XR ---
EXAMINATION TYPE: XR chest 1V portable DATE OF EXAM: 09/30/2018 Comparison: 09/29/2018 Clinical History: 63-year-old female Lung CA/mechanical ventilation Findings: ET tube satisfactory. NG tube courses below the diaphragm. Left subclavian CVC tip in the lower SVC. Heart normal size. Aorta within normal limits. Small left pleural effusion with patchy left basilar opacity. Impression: New small left pleural effusion with adjacent atelectasis and/or consolidation.
[2018-09-30] MEDS: IPRATROPIUM-ALBUTEROL 3 ML NEB INHALATION SCH ×4 (07:50→20:00)
--- NOTE | 2018-09-30 07:51 | CONS ---
CONSULTATION DATE OF SERVICE: 09/29/2018. REASON FOR CONSULTATION: Leukocytosis with mental status changes. HISTORY OF PRESENT ILLNESS: The patient is a 63-year-old female, with past medical history significant for a stage III lung cancer for which the patient receive any chemo. The patient has been brought into the ER at [facility] yesterday afternoon with chief complaint of mental status changes. The patient was brought in by her sister with the complaint of the patient having mental status changes for the last 2 days. There is no history of any trauma or any falls or any high-grade fever, no nausea, vomiting or any other symptoms reported. On arrival to the ER. The patient did have a chest x-ray that was negative for any acute process. CT of the brain did not show any bleed. The patient's highest temperature has been 99 degrees Fahrenheit on presentation and afterward the patient has been afebrile. The patient has been hemodynamically stable. Not on any pressor support. The patient noticed to have elevated white count 19.5. Repeat today is 14.8. Patient kidney function has been normal. The potassium was slightly low side and liver enzymes was observed mildly elevated. Urine was negative and influenza serology was negative. The patient also had a CT abdominal pelvis that did show distended bladder and excessive stool in the colon, but no other acute abnormality. The patient was initially on the medical floor, subsequently has been transferred to the ICU for closer observation. However, later on the patient ended up getting intubated to protect the airways. was subsequently completed which did show only one white cell, glucose was high at 103 with protein slightly at 67. The patient was started on vancomycin, Rocephin and . Infectious disease was consulted for further recommendations. Most of the information has been obtained from thorough review of the chart, talking to the nursing staff with the patient currently intubated on the vent and unable to provide any history. No family member was available at the bedside. REVIEW OF SYSTEMS: Could not be reliably obtained. The positive points have been mentioned in HPI. PAST MEDICAL HISTORY: Stage III lung cancer, CVA, TIA, fibromyalgia, gastroesophageal reflux disease, hyperlipidemia, osteoarthritis and pneumonia. PAST SURGICAL HISTORY: Bronchoscopy with biopsy, sinus surgery. SOCIAL HISTORY: for 30 years. No drinking or drug use. FAMILY HISTORY: Both parents with history of cancer, origin was not documented. ALLERGIES: No known drug allergies. MEDICATIONS: The patient is currently on acyclovir, DuoNeb, Rocephin, Lovenox, Lasix, Haldol, Dilaudid. Synthroid, Ativan, Solu-Medrol, MS Contin, norepinephrine, Protonix, propofol, vancomycin. PHYSICAL EXAMINATION: Blood pressure is 109/72 with a pulse of 80, temperature 98.3. She is 100% on 50% FiO2. General description is a middle-aged female lying in bed in no distress. No tachypnea or accessory muscle of respiration use. HEENT: Shows no pallor or scleral icterus. The patient is orally intubated. Examination of oral cavity: Neck trachea central. No thyromegaly. Lungs unlabored breathing with decreased breath sounds at the base. No wheeze. Heart S1, S2. Regular rate and rhythm. ABDOMEN: Soft, no tenderness. No organomegaly. Extremities: No edema of the feet. mass palpable. Neurological: The patient is . LAB: Hemoglobin is 14.1, white count 14, admission 19.5, BUN of 14, creatinine 0.56, mildly elevated. Urine has been negative. Chest x-ray with no new process. DIAGNOSTIC IMPRESSION AND PLAN: Patient with leukocytosis which is likely multifactorial in this patient who has been brought to the hospital for mental status changes, but subsequently the patient ended up getting intubated to protect the airway. The patient clinically did not have a clear focus of infection in this chest x-ray reported negative for any acute process. Her abdominal soft on clinical examination. UA has been negative. No evidence of any cellulitis. The patient did have mildly elevated protein on the CSF, underlying encephalitis such as herpes, not likely but entirely excluded. PLAN: 1. Acyclovir 10 mg per kg q.8 hours while waiting for the HSV DNA PCR finalized or the CSF which has already been sent. 2. The patient will be monitored closely, cultures monitored and antibiotic adjusted if needed. Thank you for this consultation. Will follow this patient along with you. MMODL / IJN: [id number] /
[2018-09-30] MEDS: ENOXAPARIN 40 MG/0.4 ML SYRINGE SQ SCH (09:50)
[2018-09-30] MEDS: LEVOTHYROXINE IVP 100 MCG/5 ML VIAL IV SCH (09:50)
[2018-09-30] MEDS: PANTOPRAZOLE 40 MG/10 ML VIAL IVP SCH (09:50)
[2018-09-30] MEDS: MORPHINE SULFATE ER 30 MG TABLET PO SCH ×2 (09:54→20:26)
--- NOTE | 2018-09-30 10:39 | P.PN ---
Subjective Progress Note Date: 09/30/18 This is a 63-year-old female patient of Dr. mariano. Patient presented to the hospital with complaints of altered mental status changes. She per patient's sister patient started having altered mental status possibly 2 days ago. Patient has a known past medical history of stage III lung cancer. Per patient patient has not received any recent treatment for cancer. Past medical history includes COPD, CVA, fibromyalgia, GERD, hyperlipidemia, osteoarthritis and pneumonia. Chest x-ray completed showing no new process. Head CT completed showing no acute process. CT of abdomen and pelvis dated showing urinary bladder distention excessive colonic stool. Liver enzymes slightly elevated AST 65, ALT 79 and alkaline phosphatase 219. Ammonia level 28. Urine and blood cultures have been ordered. Patient's pH on this admission 7.44 pCO2 57 HCO3 38. WBC 19.5. Influenza ordered. Patient started on Rocephin. At this time patient remains confused and are not able to follow commands. Discussed case with Dr. Jackson per critical care. Mar patient be transferred to the intensive care unit for closer monitoring. Discussed with patient's sister at bedside CODE STATUS. At this time requesting patient be full code. Patient's potassium also low at 2.8. Replacement has been ordered. Infectious disease will be consulted. Oncology service is consulted. On 09/30/2018 patient is currently in the intensive care unit. Patient was intubated yesterday per critical care. At this time patient is sedated. Discussed case with critical care Dr. Jackson, plan to attempt to wake patient u p tomorrow. Lumbar puncture was performed yesterday repeat head CT also performed. At this time vitals do remain stable. Patient patient currently on acylovir, vancomycin and Rocephin. All cultures pending Objective - Vital Signs Vital signs: Vital Signs Temp 98.3 F 09/30/18 08:00 Pulse 78 09/30/18 09:00 Resp 14 09/30/18 09:00 BP 104/62 09/30/18 04:30 Pulse Ox 98 09/30/18 09:00 Intake & Output 09/29/18 09/30/18 09/30/18 18:59 06:59 18:59 Intake Total 051.708 9198.977 400 Output Total 335 875 180 Balance 822.104 6488.977 220 Weight 54.431 kg 54.1 kg Intake: IV 550 1000 200 Potassium Chloride 20 meq 200 In Water For Injection 1 100ml.bag @ 50 mls/hr IVPB Q2H [facility] Rx#: [id number] Sodium Chloride 0.9% 1, 550 1000 000 ml @ 100 mls/hr IV . Q10H [facility] Rx#:[id number] Intake, IV Titration 11.310 1488.977 200 Amount Acyclovir Sodium 500 mg 100 In Sodium Chloride 0.9% 100 ml @ 100 mls/hr IVPB Q8HR [facility] Rx#:[id number] Clevidipine Butyrate 25 0.333 28 mg In Empty Bag 1 bag @ 1 MG/HR 2 mls/hr IV .Q24H [facility] Rx#:[id number] Magnesium Sulfate-D5w Pmx 100 100 1 gm In Dextrose/Water 1 100ml.bag @ 100 mls/hr IVPB Q1H [facility] Rx#: [id number] Potassium Chloride 10 meq 100 In Water For Injection 1 100ml.bag @ 100 mls/hr IVPB Q1HR [facility] Rx#: [id number] Potassium Chloride 20 meq 100 In Water For Injection 1 100ml.bag @ 50 mls/hr IVPB Q2H [facility] Rx#: [id number] Propofol 1,000 mg In 5.443 231.449 Empty Bag 1 bag @ Titrate IV .Q0M [facility] Rx#: [id number] Sodium Chloride 0.9% 1, 400 100 000 ml @ 100 mls/hr IV . Q10H [facility] Rx#:[id number] Vancomycin 1,000 mg In 250 Sodium Chloride 0.9% 250 ml @ 125 mls/hr IVPB Q8H [facility] Rx#:[id number] fentaNYL (PF) 1,000 mcg 5.534 179.528 In Sodium Chloride 0.9% 80 ml @ 1 MCG/KG/HR 5.443 mls/hr IV .[id number] [facility] Rx#:[id number] Output: Urine 335 875 180 Other: Voiding Method Indwelling Catheter Indwelling Catheter # Voids 1 ABP, PAP, CO, CI - Last Documented Arterial Blood Pressure 113/58 - Exam Head normocephalic Neck supple Lungs mechanically vented Heart regular rate and rhythm S1-S2, no rub or gallop Abdomen is soft nontender nondistended positive bowel sounds no hepatosplenomegaly Extremities no edema Neuro sedated at this time - Labs CBC & Chem 7: 09/30/18 04:15 09/30/18 04:15 Labs: Abnormal Lab Results - Last 24 Hours (Table) 09/29/18 09/29/18 09/29/18 Range/Units 11:50 12:14 15:20 WBC (3.8-10.6) k/uL RBC (3.80-5.40) m/uL Neutrophils # (1.3-7.7) k/uL Lymphocytes # (1.0-4.8) k/uL ABG pH 7.53 H (7.35-7.45) ABG pCO2 47 H (35-45) mmHg ABG pO2 136 H (83-108) mmHg ABG HCO3 39 H (21-25) mmol/L ABG Total CO2 40 H (19-24) mmol/L ABG O2 Saturation 98.0 H (94-97) % Potassium (3.5-5.1) mmol/L Carbon Dioxide (22-30) mmol/L Creatinine (0.52-1.04) mg/dL Glucose (74-99) mg/dL POC Glucose (mg/dL) 156 H (75-99) mg/dL Calcium (8.4-10.2) mg/dL AST (14-36) U/L ALT (9-52) U/L Alkaline Phosphatase (38-126) U/L Total Protein (6.3-8.2) g/dL Albumin (3.5-5.0) g/dL CSF Glucose 103 H (40-70) mg/dL CSF Total Protein 67 H (12-60) mg/dL 09/29/18 09/29/18 09/29/18 Range/Units 15:32 18:54 23:27 WBC (3.8-10.6) k/uL RBC (3.80-5.40) m/uL Neutrophils # (1.3-7.7) k/uL Lymphocytes # (1.0-4.8) k/uL ABG pH 7.56 H* (7.35-7.45) ABG pCO2 (35-45) mmHg ABG pO2 >400 H (83-108) mmHg ABG HCO3 34 H (21-25) mmol/L ABG Total CO2 36 H (19-24) mmol/L ABG O2 Saturation 98.9 H (94-97) % Potassium (3.5-5.1) mmol/L Carbon Dioxide (22-30) mmol/L Creatinine (0.52-1.04) mg/dL Glucose (74-99) mg/dL POC Glucose (mg/dL) 134 H 113 H (75-99) mg/dL Calcium (8.4-10.2) mg/dL AST (14-36) U/L ALT (9-52) U/L Alkaline Phosphatase (38-126) U/L Total Protein (6.3-8.2) g/dL Albumin (3.5-5.0) g/dL CSF Glucose (40-70) mg/dL CSF Total Protein (12-60) mg/dL 09/30/18 09/30/18 09/30/18 Range/Units 04:15 04:15 04:58 WBC 14.9 H (3.8-10.6) k/uL RBC 3.60 L (3.80-5.40) m/uL Neutrophils # 14.2 H (1.3-7.7) k/uL Lymphocytes # 0.2 L (1.0-4.8) k/uL ABG pH (7.35-7.45) ABG pCO2 (35-45) mmHg ABG pO2 195 H (83-108) mmHg ABG HCO3 31 H (21-25) mmol/L ABG Total CO2 32 H (19-24) mmol/L ABG O2 Saturation 99.5 H (94-97) % Potassium 2.9 L (3.5-5.1) mmol/L Carbon Dioxide 31 H (22-30) mmol/L Creatinine 0.47 L (0.52-1.04) mg/dL Glucose 119 H (74-99) mg/dL POC Glucose (mg/dL) (75-99) mg/dL Calcium 8.1 L (8.4-10.2) mg/dL AST 37 H (14-36) U/L ALT 55 H (9-52) U/L Alkaline Phosphatase 148 H (38-126) U/L Total Protein 4.3 L (6.3-8.2) g/dL Albumin 2.3 L (3.5-5.0) g/dL CSF Glucose (40-70) mg/dL CSF Total Protein (12-60) mg/dL 09/30/18 Range/Units 06:03 WBC (3.8-10.6) k/uL RBC (3.80-5.40) m/uL Neutrophils # (1.3-7.7) k/uL Lymphocytes # (1.0-4.8) k/uL ABG pH (7.35-7.45) ABG pCO2 (35-45) mmHg ABG pO2 (83-108) mmHg ABG HCO3 (21-25) mmol/L ABG Total CO2 (19-24) mmol/L ABG O2 Saturation (94-97) % Potassium (3.5-5.1) mmol/L Carbon Dioxide (22-30) mmol/L Creatinine (0.52-1.04) mg/dL Glucose (74-99) mg/dL POC Glucose (mg/dL) 125 H (75-99) mg/dL Calcium (8.4-10.2) mg/dL AST (14-36) U/L ALT (9-52) U/L Alkaline Phosphatase (38-126) U/L Total Protein (6.3-8.2) g/dL Albumin (3.5-5.0) g/dL CSF Glucose (40-70) mg/dL CSF Total Protein (12-60) mg/dL Microbiology - Last 24 Hours (Table) 09/28/18 17:39 Blood Culture - Preliminary Blood No Growth after 24 hours 09/29/18 10:11 Urine Culture - Preliminary Urine,Catheterized Assessment and Plan Assessment: 1. Altered mental status changes. Ammonia level 28. Head CT completed showing no acute process. Abdomen and pelvis CT completed showing urinary bladder distention excessive colonic stool. Urine and blood cultures ordered. Influenza ordered. Lumbar puncture was performed per critical care. Acyclovir has been added per infectious disease. Repeat head CT also completed showing no acute intracranial abnormality. At this time patient remains on mechanical ventilation sedated. Discussed case with critical care team will attempt to wean patient from mechanical ventilation and sedation tomorrow 10/01/2018 2. Hypercapnia and hypoxic respiratory failure with known history of COPD. Initial pH on venous blood gas 7.44 pCO2 57 and HCO3 38. pulmonary services following 3. Leukocytosis. Initial white blood cell 19.5. Chest x-ray completed showing no new process. Patient started on Rocephin, vancomycin and Acyclovir. Infectious disease consulted. Urine and blood cultures ordered. 4. Hypokalemia. Potassium 2.8. Will replace per protocol 5. Non-small cell lung cancer stage III adenocarcinoma. Per patient's family patient has not received treatment for multiple months. Oncology service is consulted. Pulmonary service is consulted 6. History of COPD. Patient currently on Solu-Medrol and DuoNeb breathing treatments 7. History of CVA 8. History of osteoarthritis 9. History of hyperlipidemia 10. History of fibromyalgia 11. History of depression 12. Ex-smoker. Patient's both proximally half pack per day for 30 years 13. Elevated liver enzymes. AST trending down to 37 ALT 55 and alkaline phosphatase 148 DVT prophylaxis Lovenox. GI prophylaxis Protonix At This time patient remains in the intensive care unit. Patient is mechanically ventilated on station. Critical care and infectious disease is following I performed an examination of the patient and discussed their management with the Nurse Practitioner. I have reviewed the Nurse Practitioner's notes and agree with the documented findings and plan of care
--- NOTE | 2018-09-30 10:51 | P.PN ---
Subjective Progress Note Date: 09/30/18 Today's evaluation of 09/30/2018 I'm seeing this patient for a follow-up. Events from yesterday were noted. The patient came in to the ICU. She was extremely agitated and restless, having tachypnea tachycardia and blood pressure was up. She received several doses of Haldol without any improvement. She continued to be altered and tomorrow mentation. At that point, the patient was given propofol and subsequently she was intubated and placed on a mechanical ventilator. Her sedation requirements stayed quite high throughout the night. The patient was receiving maximum dose of propofol which is currently running at 50 g per KG per minute. Fentanyl had to be also added for sedation and fentan yl is at high as 160 g KG per hour. She is much well rested for now. She is very symptoms with the mechanical ventilator. She is set at a tidal volume of 400 and FiO2 of 40% and PEEP of 5 and a rate of 14. Blood gases from today showed a pH of 7. raphae with a pCO2 of 44 and pO2 of 195. This was on FiO2 of 50% and subsequently she was weaned down to 40%. His x-ray from today shows this small new left-sided pleural effusion. No reported fever. No chills. No hemodynamic instability. No need for any pressors. She is resting comfortably in bed. She is also on IV fluids maintenance normal saline at the rate of 50 mL an hour. She is producing adequate amount of urine output. She is covered with empiric antibiotic coverage. With a definite vancomycin. I also performed a lumbar puncture on this patient. LP shows only 1 WBC, 1 RBC, protein was elevated, glucose was nonelevated. HSV by PCR was sent and the patient was covered with IV acyclovir. A repeat CAT scan was also done overnight. Findings of non-acute. There is no evidence of any stroke Objective - Vital Signs Vital signs: Vital Signs Temp 98.3 F 09/30/18 08:00 Pulse 78 09/30/18 09:00 Resp 14 09/30/18 09:00 BP 104/62 09/30/18 04:30 Pulse Ox 98 09/30/18 09:00 Intake & Output 09/29/18 09/30/18 09/30/18 18:59 06:59 18:59 Intake Total 641.352 2246.977 400 Output Total 335 875 180 Balance 979.964 0985.977 220 Weight 54.431 kg 54.1 kg Intake: IV 550 1000 200 Potassium Chloride 20 meq 200 In Water For Injection 1 100ml.bag @ 50 mls/hr IVPB Q2H [facility] Rx#: [id number] Sodium Chloride 0.9% 1, 550 1000 000 ml @ 100 mls/hr IV . Q10H [facility] Rx#:[id number] Intake, IV Titration 11.310 1488.977 200 Amount Acyclovir Sodium 500 mg 100 In Sodium Chloride 0.9% 100 ml @ 100 mls/hr IVPB Q8HR [facility] Rx#:[id number] Clevidipine Butyrate 25 0.333 28 mg In Empty Bag 1 bag @ 1 MG/HR 2 mls/hr IV .Q24H [facility] Rx#:[id number] Magnesium Sulfate-D5w Pmx 100 100 1 gm In Dextrose/Water 1 100ml.bag @ 100 mls/hr IVPB Q1H [facility] Rx#: [id number] Potassium Chloride 10 meq 100 In Water For Injection 1 100ml.bag @ 100 mls/hr IVPB Q1HR [facility] Rx#: [id number] Potassium Chloride 20 meq 100 In Water For Injection 1 100ml.bag @ 50 mls/hr IVPB Q2H [facility] Rx#: [id number] Propofol 1,000 mg In 5.443 231.449 Empty Bag 1 bag @ Titrate IV .Q0M [facility] Rx#: [id number] Sodium Chloride 0.9% 1, 400 100 000 ml @ 100 mls/hr IV . Q10H [facility] Rx#:[id number] Vancomycin 1,000 mg In 250 Sodium Chloride 0.9% 250 ml @ 125 mls/hr IVPB Q8H [facility] Rx#:[id number] fentaNYL (PF) 1,000 mcg 5.534 179.528 In Sodium Chloride 0.9% 80 ml @ 1 MCG/KG/HR 5.443 mls/hr IV .[id number] [facility] Rx#:[id number] Output: Urine 335 875 180 Other: Voiding Method Indwelling Catheter Indwelling Catheter # Voids 1 ABP, PAP, CO, CI - Last Documented Arterial Blood Pressure 113/58 - Exam Appearance the patient is well sedated, comfortable intubated on a mechanical ventilator. Orogastric and orotracheal tube are both in place. Head exam was generally normal. There was no scleral icterus or corneal arcus. Mucous membranes were moist. Neck was supple and without jugular venous distension, thyromegaly, or carotid bruits. Carotids were easily palpable bilaterally. There was no adenopathy. Lungs sounds are diminished bilaterally along with some few scattered external wheezes heard throughout the lung amezcua. Peak airway pressures around 32. The patient is on the floor of 60. PEEP is at 5 and FiO2 has been drop down to 40%. Cardiac exam revealed the PMI to be normally situated and sized. The rhythm was regular and no extrasystoles were noted during several minutes of auscultation. The first and second heart sounds were normal and physiologic splitting of the second heart sound was noted. There were no murmurs, rubs, clicks, or gallops. Abdominal exam revealed normal bowel sounds. The abdomen was soft, non-tender, and without masses, organomegaly, or appreciable enlargement of the abdominal aorta. Examination of the extremities revealed easily palpable radial, femoral and pedal pulses. There was no cyanosis, clubbing or edema. Examination of the skin revealed no evidence of significant rashes, suspicious appearing nevi or other concerning lesions. Neurologically she is sedated yet she is arousable upon being given a sedation holiday. - Labs CBC & Chem 7: 09/30/18 04:15 09/30/18 04:15 Labs: Abnormal Lab Results - Last 24 Hours (Table) 09/29/18 09/29/18 09/29/18 Range/Units 11:50 12:14 15:20 WBC (3.8-10.6) k/uL RBC (3.80-5.40) m/uL Neutrophils # (1.3-7.7) k/uL Lymphocytes # (1.0-4.8) k/uL ABG pH 7.53 H (7.35-7.45) ABG pCO2 47 H (35-45) mmHg ABG pO2 136 H (83-108) mmHg ABG HCO3 39 H (21-25) mmol/L ABG Total CO2 40 H (19-24) mmol/L ABG O2 Saturation 98.0 H (94-97) % Potassium (3.5-5.1) mmol/L Carbon Dioxide (22-30) mmol/L Creatinine (0.52-1.04) mg/dL Glucose (74-99) mg/dL POC Glucose (mg/dL) 156 H (75-99) mg/dL Calcium (8.4-10.2) mg/dL AST (14-36) U/L ALT (9-52) U/L Alkaline Phosphatase (38-126) U/L Total Protein (6.3-8.2) g/dL Albumin (3.5-5.0) g/dL CSF Glucose 103 H (40-70) mg/dL CSF Total Protein 67 H (12-60) mg/dL 09/29/18 09/29/18 09/29/18 Range/Units 15:32 18:54 23:27 WBC (3.8-10.6) k/uL RBC (3.80-5.40) m/uL Neutrophils # (1.3-7.7) k/uL Lymphocytes # (1.0-4.8) k/uL ABG pH 7.56 H* (7.35-7.45) ABG pCO2 (35-45) mmHg ABG pO2 >400 H (83-108) mmHg ABG HCO3 34 H (21-25) mmol/L ABG Total CO2 36 H (19-24) mmol/L ABG O2 Saturation 98.9 H (94-97) % Potassium (3.5-5.1) mmol/L Carbon Dioxide (22-30) mmol/L Creatinine (0.52-1.04) mg/dL Glucose (74-99) mg/dL POC Glucose (mg/dL) 134 H 113 H (75-99) mg/dL Calcium (8.4-10.2) mg/dL AST (14-36) U/L ALT (9-52) U/L Alkaline Phosphatase (38-126) U/L Total Protein (6.3-8.2) g/dL Albumin (3.5-5.0) g/dL CSF Glucose (40-70) mg/dL CSF Total Protein (12-60) mg/dL 09/30/18 09/30/18 09/30/18 Range/Units 04:15 04:15 04:58 WBC 14.9 H (3.8-10.6) k/uL RBC 3.60 L (3.80-5.40) m/uL Neutrophils # 14.2 H (1.3-7.7) k/uL Lymphocytes # 0.2 L (1.0-4.8) k/uL ABG pH (7.35-7.45) ABG pCO2 (35-45) mmHg ABG pO2 195 H (83-108) mmHg ABG HCO3 31 H (21-25) mmol/L ABG Total CO2 32 H (19-24) mmol/L ABG O2 Saturation 99.5 H (94-97) % Potassium 2.9 L (3.5-5.1) mmol/L Carbon Dioxide 31 H (22-30) mmol/L Creatinine 0.47 L (0.52-1.04) mg/dL Glucose 119 H (74-99) mg/dL POC Glucose (mg/dL) (75-99) mg/dL Calcium 8.1 L (8.4-10.2) mg/dL AST 37 H (14-36) U/L ALT 55 H (9-52) U/L Alkaline Phosphatase 148 H (38-126) U/L Total Protein 4.3 L (6.3-8.2) g/dL Albumin 2.3 L (3.5-5.0) g/dL CSF Glucose (40-70) mg/dL CSF Total Protein (12-60) mg/dL 09/30/18 Range/Units 06:03 WBC (3.8-10.6) k/uL RBC (3.80-5.40) m/uL Neutrophils # (1.3-7.7) k/uL Lymphocytes # (1.0-4.8) k/uL ABG pH (7.35-7.45) ABG pCO2 (35-45) mmHg ABG pO2 (83-108) mmHg ABG HCO3 (21-25) mmol/L ABG Total CO2 (19-24) mmol/L ABG O2 Saturation (94-97) % Potassium (3.5-5.1) mmol/L Carbon Dioxide (22-30) mmol/L Creatinine (0.52-1.04) mg/dL Glucose (74-99) mg/dL POC Glucose (mg/dL) 125 H (75-99) mg/dL Calcium (8.4-10.2) mg/dL AST (14-36) U/L ALT (9-52) U/L Alkaline Phosphatase (38-126) U/L Total Protein (6.3-8.2) g/dL Albumin (3.5-5.0) g/dL CSF Glucose (40-70) mg/dL CSF Total Protein (12-60) mg/dL Microbiology - Last 24 Hours (Table) 09/28/18 17:39 Blood Culture - Preliminary Blood No Growth after 24 hours 09/29/18 10:11 Urine Culture - Preliminary Urine,Catheterized Assessment and Plan Plan: Assessment 1 acute/subacute mental status change with a negative CAT scan of the brain. Consider underlying encephalopathy which could be multifactorial. Consider drug induced encephalopathy. Consider viral encephalitis. The patient does not show any signs of bacterial meningitis at this point in time. Metabolic encephalopathy with probably underlying infection disorders cannot be completely ruled out also. No seizure activity. No signs of any CVA as the patient's n eurologic exam is nonfocal. 09/30/2018 the patient is intubated on a mechanical ventilator. He is on extensive autonomic response and alternate mentation, we had to sedate the patient put on a mechanical ventilator. Meanwhile, repeat CAT scan was done and showed no acute abnormalities. We'll proceed with a EEG. Will also proceed with covering this patient with acyclovir as the patient underwent a lumbar puncture in the CSF protein was slightly elevated. 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 The CSF will be also sent for cytologic evaluation. Currently she is heavily sedated with a combination of propofol and fentanyl and she is very cooperative with the mechanical ventilator. She is well rested for now. 2 stage III non-small cell lung cancer post-chemoradiation therapy and the patient was receiving immunotherapy on outpatient basis 3 previous history of CVA/TIA 4 COPD 5 hypertension 6 hyperlipidemia 7 osteoarthritis 8 fibromyalgia 9 chronic back pain 10 depression 11 history of marijuana use Plan The patient will be kept on a mechanical ventilator. She'll be kept sedated for now. I'm going to order an EEG. During this patient with acyclovir considering and HSV encephalitis. Continue the rest of the hepatic antibiotic coverage. Continue Rocephin. Continue vancomycin. Continue vent support. No need for any ventilator changes. FiO2 has been drop down to 40%. We'll try to given a sedation holiday and her underlying mentation. We'll initiate tube feeds with Jevity 1.5 starting at 10 mL an hour. She is on DVT and GI prophylaxis. She is on bronchodilators features of systemic steroids. Family has been updated on the condition. We'll continue to follow make further recommendations based on her progress. Critically care evaluation that was done and more than 30 minutes. Time with Patient: Greater than 30
[2018-09-30 12:15] LABS: Glucose,Whole Blood 155 mg/dL (75-99)
[2018-09-30] MEDS: CLEVIDIPINE BUTYRATE 25 MG in EMPTY BAG 1 BAG IV SCH (12:27)
[2018-09-30] MEDS: INSULIN ASPART (NovoLOG) 100 UNIT/ML VIAL SQ SCH ×3 (12:50→23:39)
[2018-09-30 17:12] LABS: Glucose,Whole Blood 133 mg/dL (75-99)
--- NOTE | 2018-09-30 18:01 | PN ---
PROGRESS NOTE DATE OF SERVICE: 09/30/2018. REASON FOR FOLLOW UP: Mental status changes, question of encephalitis. INTERVAL HISTORY: The patient is currently afebrile. Patient is hemodynamically stable, not requiring pressor support. FiO2 is stable down to 40%. No significant drainage of the patient through the ET per the RN. The patient has been started on tube feeds and no diarrhea reported. PHYSICAL EXAMINATION: Blood pressure 133/62 with a pulse of 68. Temperature 98.3. She is 99% on 40% FiO2. General description is an elderly female lying in bed in no distress. RESPIRATORY SYSTEM: Unlabored breathing with decreased breath sounds at bases. No wheeze. HEART: S1, S2. Regular rate. ABDOMEN: Soft, no tenderness. LABS: Hemoglobin 11.4, white count 14.9, BUN of 14, creatinine 0.47. DIAGNOSTIC IMPRESSION AND PLAN: Patient with mental status changes, concern for possible encephalitis. CSF finding not significantly positive. is currently pending. Currently on acyclovir, Rocephin and will continue while waiting for the culture to finalize. Check an ultrasound of the liver area in view of elevated liver enzymes. Continue supportive care. MMODL / IJN: [id number] /
[2018-09-30] MEDS: POTASSIUM BICARBONATE/CIT AC 20 MEQ TABLET.EFF NG-TUBE SCH ×2 (20:22→21:48)
--- NOTE | 2018-09-30 20:33 | P.CONS ---
History of Present Illness - Reason for Consult Consult date: 09/30/18 - History of Present Illness Ms. Blake is a 63 yr old female patient well known to our practice for treatment of her known stage IIIA Adenocarcinoma of the Lung, originally diagnosed in December 2016. Primary Oncologist Dr. Posey. In 2016, she was originally referred by Dr Benoit after CT Scan of chest was suggestive of a neoplastic process in L upper lobe. She presented to Dr Benoit with progressive weakness, lack of stamina, anorexia and weight loss of 40 Lbs over 6 months. 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 The patient C/O L shoulder pain and left upper chest wall pain X 4-6 months, as well as, diffuse headache and nausea X 2-3 months at the time of diagnosis. She smoked 1 PPD X 45 years, denied ETOH , resides with her partner of 38 years. On 12/13/16: PET Scan : Stage III-A disease, Bx: Adenocarcinoma, CT of head negative. Quit smoking. December 21 February 01, 2017 - Underwent Concurrent radiation Therapy to lung and Systemic Weekly Chemotherapy with Carboplatin and Taxol. April 06, 2017 - May 2017 - Received Carboplatin and Alimta x3 cycles. She was placed on Observation and remained stable from April 2017 to current. In November 2017, CT scan failed to show active or Metastatic disease, therefore she was placed on maintenance therapy with Imfinzi (Darvolumab), tolerating well with the exception of acute COPD and Bronchitis exacerbations. 03/2018 - Mental Status Changes and Increased body aches and MRI of Brain was negative for Metastatic Disease and PET Negative for active Disease. August 2018 - Continues on Maintenance Imfinizi and most recent CT Chest shows further reduction in the inactive malignancy Since early 2018, the patient has been struggling with increased weakness and fatigue, acute infections which she presents with acute mental status changes (treated with antibiotics and in past have quickly resolved to baseline). She was admitted on 09/14/18 with complaints of increased shortness of breath worsened with activity, as well as increased Bilateral Lower Extremity edema. There was no evidence of treatment induced pneumonitis. The patient improved with treatment for COPD/bronchitis. She was subsequently seen in the office, and immunotherapy was stopped. She has not had a does for about 2 months currently. The patient came back to the emergency room, with mental status changes that had started within the past 24 hours or so and gotten progressively worse. The patient was felt to be delirious, and was quite agitated and combative. Respiratory rate was also increased. The patient ultimately had to be intubated to protect her airway. Consult was placed for further evaluation and recommendations The patient was unable to provide any history, and this was obtained from the EMR, as well as her sister and significant other who were present at the bedside. They denied any trauma, fever, chills, nausea or vomiting. Review of Systems Obtained from the EMR, and patient's sister and significant other Constitutional: Reports as per HPI, Reports weakness Eyes: denies blurred vision, denies pain Ears: deny: decreased hearing, ear discharge, earache, tinnitus Ears, nose, mouth and throat: Denies headache, Denies sore throat Cardiovascular: Reports decreased exercise tolerance Respiratory: Reports as per HPI, Reports cough, Reports dyspnea (on 2 L O2) Gastrointestinal: Denies abdominal pain, Denies diarrhea, Denies nausea, Denies vomiting Genitourinary: Denies dysuria, Denies hematuria Menstruation: Reports postmenopausal Musculoskeletal: Reports muscle weakness Integumentary: Denies pruritus, Denies rash Neurological: Reports change in mentation, Reports confusion, Reports weakness Psychiatric: Reports as per HPI, Reports confusion, Reports disorientation Endocrine: Reports fatigue Hematologic/Lymphatic: Reports as per HPI Past Medical History Past Medical History: Cancer, COPD, CVA/TIA, Fibromyalgia, GERD/Reflux, Hyperlip idemia, Osteoarthritis (OA), Pneumonia Additional Past Medical History / Comment(s): Non-small cell lung cancer stage 3 adenocarcinoma, COPD, fibromyalgia, acid reflux, hyperlipidemia, osteoarthritis, adrenal mass that has remained stable over some time, TIA history of, hiatal hernia, chronic constipation, chronic back pain, degenerative arthritis History of Any Multi-Drug Resistant Organisms: None Reported Additional Past Surgical History / Comment(s): SINUS surgery Past Anesthesia/Blood Transfusion Reactions: No Reported Reaction Past Psychological History: Depression Smoking Status: Former smoker Past Alcohol Use History: None Reported Past Drug Use History: None Reported - Past Family History Mother Family Medical History: Cancer Father Family Medical History: Cancer Medications and Allergies Home Medications Medication Instructions Recorded Confirmed Type Albuterol Inhaler [Ventolin Hfa 2 puff INHALATION RT-QID PRN 12/03/13 09/28/18 History Inhaler] Cevimeline [Evoxac] 30 mg PO BID 12/03/13 09/28/18 History Escitalopram [Lexapro] 20 mg PO DAILY 12/03/13 09/28/18 History Esomeprazole Magnesium [NexIUM] 40 mg PO BID 12/03/13 09/28/18 History Morphine Sulfate [Ms Contin] 30 mg PO BID #60 tablet.er 03/11/15 09/28/18 Rx oxyCODONE-APAP 10-325MG [Percocet 1 tab PO Q6H PRN 09/05/16 09/28/18 History 10-325 mg] Albuterol Nebulized [Ventolin 2.5 mg INHALATION RT-QID PRN 02/23/17 09/28/18 History Nebulized] Budesonide-Formot 160-4.5 Mcg 2 puff INHALATION RT-BID 02/23/17 09/28/18 History [Symbicort 160-4.5 Mcg Inhaler] Ondansetron Odt [Zofran ODT] 8 mg PO Q6H PRN 02/23/17 09/28/18 History Prochlorperazine [Compazine] 10 mg PO Q6H PRN 02/23/17 09/28/18 History ALPRAZolam [Xanax] 0.25 mg PO DIRECTED PRN 01/20/18 09/28/18 History Cholecalciferol [Vitamin D3] 1,000 unit PO DAILY 09/13/18 09/28/18 History Cyanocobalamin (Vitamin B-12) 1,000 mcg PO BID 09/13/18 09/28/18 History [Vitamin B-12] Folic Acid 0.4 mg PO DAILY 09/13/18 09/28/18 History Furosemide [Lasix] 40 mg PO TID 09/13/18 09/28/18 History Levothyroxine Sodium [Synthroid] 25 mcg PO DAILY 09/13/18 09/28/18 History Umeclidinium Merrill [Incruse 1 puff INHALATION RT-DAILY 09/13/18 09/28/18 History Ellipta] guaiFENesin [Mucinex] 600 mg PO DAILY PRN 09/13/18 09/28/18 History LORazepam [Ativan] 0.5 mg PO Q6H PRN 09/28/18 09/28/18 History Pyridoxine HCl (Vitamin B6) 100 mg PO DAILY 09/28/18 09/28/18 History [Vitamin B-6] Tolterodine Tartrate [Detrol LA] 4 mg PO DAILY 09/28/18 09/28/18 History Allergies Allergy/AdvReac Type Severity Reaction Status Date / Time No Known Allergies Allergy Verified 09/28/18 17:39 Physical Exam Vitals: Vital Signs Temp Pulse Pulse Resp BP BP Pulse Ox 09/30/18 20:08 63 09/30/18 20:00 85 09/30/18 19:30 76 14 99 09/30/18 19:00 71 14 99 09/30/18 18:30 63 14 99 09/30/18 18:00 71 14 99 09/30/18 17:30 67 14 99 09/30/18 17:00 66 14 99 09/30/18 16:30 68 14 99 09/30/18 16:01 65 09/30/18 16:00 98.3 F 65 14 100 09/30/18 15:49 63 09/30/18 15:30 65 14 99 09/30/18 15:00 69 14 99 09/30/18 14:30 69 14 99 09/30/18 14:00 72 14 99 09/30/18 13:30 76 14 98 09/30/18 13:00 77 14 98 09/30/18 12:30 79 14 98 09/30/18 12:19 76 09/30/18 12:08 74 09/30/18 12:00 98.3 F 75 14 98 09/30/18 11:30 81 14 98 09/30/18 11:00 84 15 98 09/30/18 10:30 79 14 98 09/30/18 10:00 76 14 98 09/30/18 09:30 76 14 98 09/30/18 09:00 78 14 98 09/30/18 08:30 76 10 L 99 09/30/18 08:06 85 09/30/18 08:00 98.3 F 72 14 99 09/30/18 07:51 83 09/30/18 07:30 74 14 98 09/30/18 07:00 78 14 99 09/30/18 06:30 83 14 99 09/30/18 06:00 77 16 98 09/30/18 05:30 79 14 100 09/30/18 05:00 81 15 99 09/30/18 04:30 106 H 15 104/62 99 09/30/18 04:00 98.6 F 82 14 117/75 99 09/30/18 03:38 81 09/30/18 03:30 84 14 117/75 99 09/30/18 03:11 81 09/30/18 03:00 85 14 117/75 99 09/30/18 02:30 81 14 90/61 99 09/30/18 02:00 95 15 120/63 99 09/30/18 01:30 95 14 120/63 99 09/30/18 01:00 90 14 112/67 99 09/30/18 00:30 87 14 112/67 99 09/30/18 00:01 85 14 112/67 100 09/30/18 00:00 98.7 F 84 14 98/66 99 09/29/18 23:40 75 09/29/18 23:30 86 14 98/66 100 09/29/18 23:16 85 09/29/18 23:00 85 14 121/81 100 09/29/18 22:00 85 14 91/53 100 09/29/18 21:30 80 14 91/53 100 09/29/18 21:00 85 14 91/53 100 09/29/18 20:30 80 14 88/57 100 09/29/18 20:20 98.3 F 91 14 117/62 100 Intake and Output 09/30/18 09/30/18 09/30/18 06:59 14:59 22:59 Intake Total 1796.296 878.825 710 Output Total 550 415 190 Balance 1246.296 463.825 520 Intake: IV 500 200 500 Potassium Chloride 20 meq 200 In Water For Injection 1 100ml.bag @ 50 mls/hr IVPB Q2H [facility] Rx#: [id number] Sodium Chloride 0.9% 1, 500 500 000 ml @ 100 mls/hr IV . Q10H [facility] Rx#:[id number] Intake, IV Titration 1296.296 678.825 200 Amount Acyclovir Sodium 500 mg 100 In Sodium Chloride 0.9% 100 ml @ 100 mls/hr IVPB Q8HR [facility] Rx#:[id number] Magnesium Sulfate-D5w Pmx 100 400 1 gm In Dextrose/Water 1 100ml.bag @ 100 mls/hr IVPB Q1H [facility] Rx#: [id number] Potassium Chloride 20 meq 100 In Water For Injection 1 100ml.bag @ 50 mls/hr IVPB Q2H [facility] Rx#: [id number] Propofol 1,000 mg In 174.025 85.478 100 Empty Bag 1 bag @ Titrate IV .Q0M [facility] Rx#: [id number] Sodium Chloride 0.9% 1, 400 100 000 ml @ 100 mls/hr IV . Q10H [facility] Rx#:[id number] Vancomycin 1,000 mg In 250 Sodium Chloride 0.9% 250 ml @ 125 mls/hr IVPB Q8H [facility] Rx#:[id number] fentaNYL (PF) 1,000 mcg 172.271 93.347 100 In Sodium Chloride 0.9% 80 ml @ 1 MCG/KG/HR 5.443 mls/hr IV .[id number] [facility] Rx#:[id number] Tube Feeding 10 Output: Urine 550 415 190 Other: Voiding Method Indwelling Catheter Indwelling Catheter Indwelling Catheter Weight 54.1 kg 54.1 kg ABP, PAP, CO, CI - Last 8 Hours Arterial Blood Pressure 139/61 Arterial Blood Pressure 143/62 Arterial Blood Pressure 135/62 Arterial Blood Pressure 155/70 Arterial Blood Pressure 141/63 Arterial Blood Pressure 126/63 Arterial Blood Pressure 133/62 Arterial Blood Pressure 126/61 Arterial Blood Pressure 124/60 Arterial Blood Pressure 131/62 Arterial Blood Pressure 107/58 Arterial Blood Pressure 112/59 Arterial Blood Pressure 113/60 Arterial Blood Pressure 118/60 Arterial Blood Pressure 119/62 Results CBC & Chem 7: 09/30/18 04:15 09/30/18 16:40 Labs: Abnormal Lab Results - Last 24 Hours (Table) 09/29/18 09/30/18 09/30/18 Range/Units 23:27 04:15 04:15 WBC 14.9 H (3.8-10.6) k/uL RBC 3.60 L (3.80-5.40) m/uL Neutrophils # 14.2 H (1.3-7.7) k/uL Lymphocytes # 0.2 L (1.0-4.8) k/uL ABG pO2 (83-108) mmHg ABG HCO3 (21-25) mmol/L ABG Total CO2 (19-24) mmol/L ABG O2 Saturation (94-97) % Potassium 2.9 L (3.5-5.1) mmol/L Carbon Dioxide 31 H (22-30) mmol/L Creatinine 0.47 L (0.52-1.04) mg/dL Glucose 119 H (74-99) mg/dL POC Glucose (mg/dL) 113 H (75-99) mg/dL Calcium 8.1 L (8.4-10.2) mg/dL Phosphorus (2.5-4.5) mg/dL AST 37 H (14-36) U/L ALT 55 H (9-52) U/L Alkaline Phosphatase 148 H (38-126) U/L Total Protein 4.3 L (6.3-8.2) g/dL Albumin 2.3 L (3.5-5.0) g/dL 09/30/18 09/30/18 09/30/18 Range/Units 04:15 04:58 06:03 WBC (3.8-10.6) k/uL RBC (3.80-5.40) m/uL Neutrophils # (1.3-7.7) k/uL Lymphocytes # (1.0-4.8) k/uL ABG pO2 195 H (83-108) mmHg ABG HCO3 31 H (21-25) mmol/L ABG Total CO2 32 H (19-24) mmol/L ABG O2 Saturation 99.5 H (94-97) % Potassium (3.5-5.1) mmol/L Carbon Dioxide (22-30) mmol/L Creatinine (0.52-1.04) mg/dL Glucose (74-99) mg/dL POC Glucose (mg/dL) 125 H (75-99) mg/dL Calcium (8.4-10.2) mg/dL Phosphorus 2.1 L (2.5-4.5) mg/dL AST (14-36) U/L ALT (9-52) U/L Alkaline Phosphatase (38-126) U/L Total Protein (6.3-8.2) g/dL Albumin (3.5-5.0) g/dL 09/30/18 09/30/18 Range/Units 12:03 17:00 WBC (3.8-10.6) k/uL RBC (3.80-5.40) m/uL Neutrophils # (1.3-7.7) k/uL Lymphocytes # (1.0-4.8) k/uL ABG pO2 (83-108) mmHg ABG HCO3 (21-25) mmol/L ABG Total CO2 (19-24) mmol/L ABG O2 Saturation (94-97) % Potassium (3.5-5.1) mmol/L Carbon Dioxide (22-30) mmol/L Creatinine (0.52-1.04) mg/dL Glucose (74-99) mg/dL POC Glucose (mg/dL) 155 H 133 H (75-99) mg/dL Calcium (8.4-10.2) mg/dL Phosphorus (2.5-4.5) mg/dL AST (14-36) U/L ALT (9-52) U/L Alkaline Phosphatase (38-126) U/L Total Protein (6.3-8.2) g/dL Albumin (3.5-5.0) g/dL Microbiology - Last 24 Hours (Table) 09/28/18 17:39 Blood Culture - Preliminary Blood No Growth after 48 hours 09/29/18 15:20 CSF Gram Stain - Preliminary Cerebral Spinal Fluid 09/29/18 10:11 Urine Culture - Final Urine,Catheterized Chest x-ray: report reviewed CT scan - abdomen: report reviewed CT Scan - head: report reviewed CT scan - pelvis: report reviewed Assessment and Plan (1) Altered mental status Narrative/Plan: The patient has had episodes of mental status changes in the last few months, which seemed to have been related to infections, and have improved with antibiotics but the current episode was much more severe, and required intubation because of anticipated inability to protect her airway. At this time there is no definite evidence of infection, on chest x-ray, or CT of the abdomen and pelvis. The patient had a lumbar puncture, which showed mild protein elevation, but no increase in inflammatory cells. The case was discussed in detail with [facility], and also the patient's family. PD- 1 immunotherapy can cause neurologic symptoms, due to autoimmune cerebritis and meningitis. However this is comparatively quite rare. In addition, the patient has not received this treatment for almost 2 months. CSF does not show any inflammatory changes. Therefore this appears to be unlikely at this point. Await additional studies to rule out CSF infection. The patient is being covered with antibiotics and is also being followed by ID. From the malignancy standpoint, concern could be metastatic disease in the brain. Plan for MRI with the patient is stable enough to have study with gadolinium. Current Visit: Yes Status: Acute Code(s): R41.82 - ALTERED MENTAL STATUS, UNSPECIFIED SNOMED Code(s): 578563843 (2) Non-small cell lung cancer Narrative/Plan: The patient does not have any evidence of progression so far. Therapeutic and diagnostic circumstances as described above. She has been off immunotherapy from 2 months now. Plan for MRI brain, as noted above. I will also check cytology on the CSF fluid in this has not been ordered Current Visit: No Status: Acute Priority: Medium Code(s): C34.90 - MALIGNANT NEOPLASM OF UNSP PART OF UNSP BRONCHUS OR LUNG SNOMED Code(s): 069523133 Plan: The patient has multiple other medical problems, as noted in the PMH. Defer to the admitting service, [facility] and other consultants for management off the above
[2018-09-30 23:38] LABS: Glucose,Whole Blood 162 mg/dL (75-99)
[2018-10-01 04:38] LABS: Basophils % (A) 0 %; Eosinophils % (A) 0 %; HCT 32.7 % (34.0-46.0); HGB 10.2 gm/dL (11.4-16.0); Lymphocytes # (A) 0.1 k/uL (1.0-4.8); Lymphocytes % (A) 1 %; MCHC 31.1 g/dL (31.0-37.0); MCV 99.7 fL (80.0-100.0); Macrocytosis Slight; Mean Platelet Volume 7.5; Monocytes # (A) 0.4 k/uL (0-1.0); Monocytes % (A) 4 %; Neutrophils # (A) 9.8 k/uL (1.3-7.7); Neutrophils % (A) 94 %; Platelet Count 146 k/uL (150-450); RBC 3.28 m/uL (3.80-5.40); RDW 15.3 % (11.5-15.5); WBC 10.4 k/uL (3.8-10.6)
[2018-10-01 04:39] LABS: ABG Base Excess 4.2 mmol/L; ABG HCO3 29 mmol/L (21-25); ABG Oxygen Saturation 98.2 % (94-97); ABG PCO2 49 mmHg (35-45); ABG PH 7.38 (7.35-7.45); ABG PO2 145 mmHg (83-108); ABG TCO2 31 mmol/L (19-24)
[2018-10-01] MEDS: VANCOMYCIN 1,000 MG in SODIUM CHLORIDE 0.9% 250 ML IVPB SCH ×3 (05:04→23:50)
[2018-10-01] MEDS: fentaNYL (PF) 1,000 MCG in SODIUM CHLORIDE 0.9% 80 ML IV SCH ×3 (05:05→23:00)
[2018-10-01] MEDS: methylPREDNISolone SOD SUCCI 125 MG/2 ML VIAL IV SCH ×4 (05:05→23:50)
[2018-10-01] MEDS: PROPOFOL 1,000 MG in EMPTY BAG 1 BAG IV SCH ×4 (05:08→23:53)
[2018-10-01 05:18] LABS: Anion Gap -1 mmol/L; Blood Urea Nitrogen 15 mg/dL (7-17); Carbon Dioxide 27 mmol/L (22-30); Chloride 110 mmol/L (98-107); Glucose 176 mg/dL (74-99); Sodium 136 mmol/L (137-145)
[2018-10-01 05:19] LABS: ALT 43 U/L (9-52); AST 24 U/L (14-36); Albumin 2.1 g/dL (3.5-5.0); Alkaline Phosphatase 126 U/L (38-126); Calcium 8.4 mg/dL (8.4-10.2); Magnesium 2.3 mg/dL (1.6-2.3); Total Bilirubin 0.3 mg/dL (0.2-1.3); Total Protein 3.9 g/dL (6.3-8.2)
[2018-10-01] MEDS: IPRATROPIUM-ALBUTEROL 3 ML NEB INHALATION SCH ×4 (05:49→19:08)
[2018-10-01 06:03] LABS: Glucose,Whole Blood 187 mg/dL (75-99)
[2018-10-01] MEDS: INSULIN ASPART (NovoLOG) 100 UNIT/ML VIAL SQ SCH ×3 (06:06→18:19)
[2018-10-01] MEDS: SODIUM CHLORIDE 0.9% 1,000 ML IV SCH ×3 (06:07→19:54)
--- NOTE | 2018-10-01 08:09 | US ---
EXAMINATION TYPE: US abdomen limited DATE OF EXAM: 10/01/2018 COMPARISON: CT CLINICAL HISTORY: elevated LFT . ICU patient with intubation EXAM MEASUREMENTS: Liver Length: 18.1 cm Gallbladder Wall: 0.25 cm CBD: 0.4 cm Right Kidney: 10.1 x 5.0 x 3.9 cm Pancreas: hyperechoic and tail obscured by overlying bowel gas Liver: no masses seen Gallbladder: sludge within; pericholecystic fluid is seen Evidence for sonographic Little's sign: NA for ICU patient CBD: wnl Right Kidney: No hydronephrosis or masses seen IMPRESSION: 1. Sludge within the gallbladder. Some pericholecystic fluid is adjacent. Correlate for cholecystitis . Stasis could be considered.
[2018-10-01] MEDS: ENOXAPARIN 40 MG/0.4 ML SYRINGE SQ SCH (08:59)
[2018-10-01] MEDS: ACYCLOVIR SODIUM 500 MG in SODIUM CHLORIDE 0.9% 100 ML IVPB SCH ×2 (08:59→16:32)
[2018-10-01] MEDS: CHLORHEXIDINE GLUCONATE 15 ML CUP MUCOUS MEM SCH ×2 (09:00→19:54)
[2018-10-01] MEDS: PANTOPRAZOLE 40 MG/10 ML VIAL IVP SCH (09:00)
[2018-10-01] MEDS: MORPHINE SULFATE ER 30 MG TABLET PO SCH ×2 (09:00→19:51)
[2018-10-01] MEDS: LEVOTHYROXINE IVP 100 MCG/5 ML VIAL IV SCH (09:00)
--- NOTE | 2018-10-01 09:42 | P.PN ---
Subjective Progress Note Date: 10/01/18 This is a 63-year-old female patient of Dr. mariano. Patient presented to the hospital with complaints of altered mental status changes. She per patient's sister patient started having altered mental status possibly 2 days ago. Patient has a known past medical history of stage III lung cancer. Per patient patient has not received any recent treatment for cancer. Past medical history includes COPD, CVA, fibromyalgia, GERD, hyperlipidemia, osteoarthritis and pneumonia. Chest x-ray completed showing no new process. Head CT completed showing no acute process. CT of abdomen and pelvis dated showing urinary bladder distention excessive colonic stool. Liver enzymes slightly elevated AST 65, ALT 79 and alkaline phosphatase 219. Ammonia level 28. Urine and blood cultures have been ordered. Patient's pH on this admission 7.44 pCO2 57 HCO3 38. WBC 19.5. Influenza ordered. Patient started on Rocephin. At this time patient remains confused and are not able to follow commands. Discussed case with Dr. Jackson per critical care. Mar patient be transferred to the intensive care unit for closer monitoring. Discussed with patient's sister at bedside CODE STATUS. At this time requesting patient be full code. Patient's potassium also low at 2.8. Replacement has been ordered. Infectious disease will be consulted. Oncology service is consulted. On 09/30/2018 patient is currently in the intensive care unit. Patient was intubated yesterday per critical care. At this time patient is sedated. Discussed case with critical care Dr. Jackson, plan to attempt to wake patient u p tomorrow. Lumbar puncture was performed yesterday repeat head CT also performed. At this time vitals do remain stable. Patient patient currently on acylovir, vancomycin and Rocephin. All cultures pending On 10/01/2018 patient remains in the intensive care unit. Patient remains on mechanical ventilation and sedation at this time. Attempt to wean sedation today per critical care team. At this time critical care, infectious disease and oncology services are following. Patient remains on antibiotics and antivirals. Cultures currently pending Objective - Vital Signs Vital signs: Vital Signs Temp 97.8 F 10/01/18 08:00 Pulse 53 L 10/01/18 09:00 Resp 14 10/01/18 09:00 BP 104/62 10/01/18 07:00 Pulse Ox 100 10/01/18 09:00 Intake & Output 09/30/18 10/01/18 10/01/18 18:59 06:59 18:59 Intake Total 6404.090 8766.205 443.838 Output Total 565 365 60 Balance 247.197 0059.205 383.838 Weight 54.1 kg 57.6 kg Intake: IV 600 1300 300 Acyclovir Sodium 500 mg 100 In Sodium Chloride 0.9% 100 ml @ 100 mls/hr IVPB Q8HR [facility] Rx#:[id number] Normal Saline 1200 200 Potassium Chloride 20 meq 200 In Water For Injection 1 100ml.bag @ 50 mls/hr IVPB Q2H [facility] Rx#: [id number] Sodium Chloride 0.9% 1, 400 100 000 ml @ 100 mls/hr IV . Q10H [facility] Rx#:[id number] Intake, IV Titration 725.534 6659.205 63.838 Amount Acyclovir Sodium 500 mg 100 In Sodium Chloride 0.9% 100 ml @ 100 mls/hr IVPB Q8HR [facility] Rx#:[id number] Magnesium Sulfate-D5w Pmx 400 1 gm In Dextrose/Water 1 100ml.bag @ 100 mls/hr IVPB Q1H [facility] Rx#: [id number] Propofol 1,000 mg In 185.478 162.301 63.838 Empty Bag 1 bag @ Titrate IV .Q0M [facility] Rx#: [id number] Sodium Chloride 0.9% 1, 100 000 ml @ 100 mls/hr IV . Q10H [facility] Rx#:[id number] Vancomycin 1,000 mg In 625 Sodium Chloride 0.9% 250 ml @ 125 mls/hr IVPB Q8H [facility] Rx#:[id number] fentaNYL (PF) 1,000 mcg 193.347 173.904 In Sodium Chloride 0.9% 80 ml @ 1 MCG/KG/HR 5.443 mls/hr IV .[id number] [facility] Rx#:[id number] Tube Feeding 10 335 50 Other 90 30 Output: Urine 565 365 60 Other: Voiding Method Indwelling Catheter Indwelling Catheter ABP, PAP, CO, CI - Last Documented Arterial Blood Pressure 119/52 - Exam Head normocephalic Neck supple Lungs mechanically vented Heart regular rate and rhythm S1-S2, no rub or gallop Abdomen is soft nontender nondistended positive bowel sounds no hepatosplenomegaly Extremities no edema Neuro sedated at this time - Labs CBC & Chem 7: 10/01/18 04:20 10/01/18 04:20 Labs: Abnormal Lab Results - Last 24 Hours (Table) 09/30/18 09/30/18 09/30/18 Range/Units 04:15 12:03 17:00 RBC (3.80-5.40) m/uL Hgb (11.4-16.0) gm/dL Hct (34.0-46.0) % Plt Count (150-450) k/uL Neutrophils # (1.3-7.7) k/uL Lymphocytes # (1.0-4.8) k/uL ABG pCO2 (35-45) mmHg ABG pO2 (83-108) mmHg ABG HCO3 (21-25) mmol/L ABG Total CO2 (19-24) mmol/L ABG O2 Saturation (94-97) % Sodium (137-145) mmol/L Chloride (98-107) mmol/L Creatinine (0.52-1.04) mg/dL Glucose (74-99) mg/dL POC Glucose (mg/dL) 155 H 133 H (75-99) mg/dL Phosphorus 2.1 L (2.5-4.5) mg/dL Total Protein (6.3-8.2) g/dL Albumin (3.5-5.0) g/dL 09/30/18 10/01/18 10/01/18 Range/Units 23:26 04:20 04:20 RBC 3.28 L (3.80-5.40) m/uL Hgb 10.2 L (11.4-16.0) gm/dL Hct 32.7 L (34.0-46.0) % Plt Count 146 L (150-450) k/uL Neutrophils # 9.8 H (1.3-7.7) k/uL Lymphocytes # 0.1 L (1.0-4.8) k/uL ABG pCO2 (35-45) mmHg ABG pO2 (83-108) mmHg ABG HCO3 (21-25) mmol/L ABG Total CO2 (19-24) mmol/L ABG O2 Saturation (94-97) % Sodium 136 L (137-145) mmol/L Chloride 110 H (98-107) mmol/L Creatinine 0.49 L (0.52-1.04) mg/dL Glucose 176 H (74-99) mg/dL POC Glucose (mg/dL) 162 H (75-99) mg/dL Phosphorus (2.5-4.5) mg/dL Total Protein 3.9 L (6.3-8.2) g/dL Albumin 2.1 L (3.5-5.0) g/dL 10/01/18 10/01/18 Range/Units 04:33 05:52 RBC (3.80-5.40) m/uL Hgb (11.4-16.0) gm/dL Hct (34.0-46.0) % Plt Count (150-450) k/uL Neutrophils # (1.3-7.7) k/uL Lymphocytes # (1.0-4.8) k/uL ABG pCO2 49 H (35-45) mmHg ABG pO2 145 H (83-108) mmHg ABG HCO3 29 H (21-25) mmol/L ABG Total CO2 31 H (19-24) mmol/L ABG O2 Saturation 98.2 H (94-97) % Sodium (137-145) mmol/L Chloride (98-107) mmol/L Creatinine (0.52-1.04) mg/dL Glucose (74-99) mg/dL POC Glucose (mg/dL) 187 H (75-99) mg/dL Phosphorus (2.5-4.5) mg/dL Total Protein (6.3-8.2) g/dL Albumin (3.5-5.0) g/dL Microbiology - Last 24 Hours (Table) 09/29/18 15:20 CSF Gram Stain - Preliminary Cerebral Spinal Fluid CSF Culture - Preliminary 09/30/18 20:02 Gram Stain - Preliminary Sputum Sputum Culture - Preliminary 09/28/18 17:39 Blood Culture - Preliminary Blood No Growth after 48 hours 09/29/18 10:11 Urine Culture - Final Urine,Catheterized Assessment and Plan Assessment: 1. Altered mental status changes. Ammonia level 28. Head CT completed showing no acute process. Abdomen and pelvis CT completed showing urinary bladder distention excessive colonic stool. Urine and blood cultures ordered. Influenza ordered. Lumbar puncture was performed per critical care. Acyclovir has been added per infectious disease. Repeat head CT also completed showing no acute intracranial abnormality. At this time patient remains on mechanical ventilation sedated. Discussed case with critical care team will attempt to wean patient from mechanical ventilation and sedation tomorrow 10/01/2018 2. Hypercapnia and hypoxic respiratory failure with known history of COPD. Initial pH on venous blood gas 7.44 pCO2 57 and HCO3 38. pulmonary services following 3. Leukocytosis. Initial white blood cell 19.5. Chest x-ray completed showing no new process. Patient started on Rocephin, vancomycin and Acyclovir. Infectious disease consulted. Urine and blood cultures ordered. 4. Hypokalemia. Potassium 2.8. Will replace per protocol 5. Non-small cell lung cancer stage III adenocarcinoma. Per patient's family patient has not received treatment for multiple months. Per oncology service is patient received PD1 immunotherapy proximally 2 months ago. Possible MRI when patient is stable to rule out malignancy per oncology services 6. History of COPD. Patient currently on Solu-Medrol and DuoNeb breathing treatments 7. History of CVA 8. History of osteoarthritis 9. History of hyperlipidemia 10. History of fibromyalgia 11. History of depression 12. Ex-smoker. Patient's both proximally half pack per day for 30 years 13. Elevated liver enzymes. AST trending down to 37 ALT 55 and alkaline phosphatase 148 DVT prophylaxis Lovenox. GI prophylaxis Protonix At This time patient remains in the intensive care unit. Patient is mechanically ventilated on station. Critical care and infectious disease is following I performed an examination of the patient and discussed their management with the Nurse Practitioner. I have reviewed the Nurse Practitioner's notes and agree with the documented findings and plan of care
[2018-10-01 10:24] LABS: Hepatitis A Antibody IgM Non-Reactive (Non-Reactive); Hepatitis B Core IgM Non-Reactive (Non-Reactive)
--- NOTE | 2018-10-01 10:54 | P.PN ---
Subjective Progress Note Date: 10/01/18 Principal diagnosis: COPD exacerbation, acute respiratory failure, IIIA NSCLC Pt remains intubated, stable on monitor, 2 family members at bedside. Objective - Vital Signs Vital signs: Vital Signs Temp 97.8 F 10/01/18 08:00 Pulse 57 L 10/01/18 10:00 Resp 14 10/01/18 10:00 BP 104/62 10/01/18 07:00 Pulse Ox 98 10/01/18 10:00 Intake & Output 09/30/18 10/01/18 10/01/18 18:59 06:59 18:59 Intake Total 9755.620 3345.205 647.489 Output Total 565 365 85 Balance 857.752 4954.205 562.489 Weight 54.1 kg 57.6 kg Intake: IV 600 1300 400 Acyclovir Sodium 500 mg 100 In Sodium Chloride 0.9% 100 ml @ 100 mls/hr IVPB Q8HR [facility] Rx#:[id number] Normal Saline 1200 300 Potassium Chloride 20 meq 200 In Water For Injection 1 100ml.bag @ 50 mls/hr IVPB Q2H [facility] Rx#: [id number] Sodium Chloride 0.9% 1, 400 100 000 ml @ 100 mls/hr IV . Q10H [facility] Rx#:[id number] Intake, IV Titration 386.228 8693.205 142.489 Amount Acyclovir Sodium 500 mg 100 In Sodium Chloride 0.9% 100 ml @ 100 mls/hr IVPB Q8HR [facility] Rx#:[id number] Magnesium Sulfate-D5w Pmx 400 1 gm In Dextrose/Water 1 100ml.bag @ 100 mls/hr IVPB Q1H [facility] Rx#: [id number] Propofol 1,000 mg In 185.478 162.301 63.838 Empty Bag 1 bag @ Titrate IV .Q0M [facility] Rx#: [id number] Sodium Chloride 0.9% 1, 100 000 ml @ 100 mls/hr IV . Q10H [facility] Rx#:[id number] Vancomycin 1,000 mg In 625 Sodium Chloride 0.9% 250 ml @ 125 mls/hr IVPB Q8H [facility] Rx#:[id number] fentaNYL (PF) 1,000 mcg 193.347 173.904 78.651 In Sodium Chloride 0.9% 80 ml @ 1 MCG/KG/HR 5.443 mls/hr IV .[id number] [facility] Rx#:[id number] Tube Feeding 10 335 75 Other 90 30 Output: Urine 565 365 85 Other: Voiding Method Indwelling Catheter Indwelling Catheter Indwelling Catheter ABP, PAP, CO, CI - Last Documented Arterial Blood Pressure 104/47 - Constitutional General appearance: Present: no acute distress, obese - EENT EENT Comment(s): PERRL - Respiratory Respiratory: bilateral: rhonchi - Cardiovascular Details: mild anasarca Heart sounds: normal: S1, S2 Abnormal Heart Sounds: Absent: systolic murmur, diastolic murmur, rub, S3 Gallop, S4 Gallop, click, other - Peripheral pulses dorsalis pedis Peripheral Pulses: bilateral: Normal - Gastrointestinal General gastrointestinal: Present: normal bowel sounds, soft - Integumentary Integumentary Comment(s): small hematoma on the right frontal just inferior to hairline, multiple bruises on forearms - Neurologic Neurologic Comment(s): Unable to assess - Psychiatric Psychiatric Comment(s): Unable to assess - Labs CBC & Chem 7: 10/01/18 04:20 10/01/18 04:20 Labs: Abnormal Lab Results - Last 24 Hours (Table) 09/30/18 09/30/18 09/30/18 Range/Units 04:15 04:15 12:03 RBC (3.80-5.40) m/uL Hgb (11.4-16.0) gm/dL Hct (34.0-46.0) % Plt Count (150-450) k/uL Neutrophils # (1.3-7.7) k/uL Lymphocytes # (1.0-4.8) k/uL ABG pCO2 (35-45) mmHg ABG pO2 (83-108) mmHg ABG HCO3 (21-25) mmol/L ABG Total CO2 (19-24) mmol/L ABG O2 Saturation (94-97) % Sodium (137-145) mmol/L Chloride (98-107) mmol/L Creatinine (0.52-1.04) mg/dL Glucose (74-99) mg/dL POC Glucose (mg/dL) 155 H (75-99) mg/dL Phosphorus 2.1 L (2.5-4.5) mg/dL Total Protein (6.3-8.2) g/dL Albumin (3.5-5.0) g/dL Hep C IgG Ab Reactive H (Non-Reactive) 09/30/18 09/30/18 10/01/18 Range/Units 17:00 23:26 04:20 RBC 3.28 L (3.80-5.40) m/uL Hgb 10.2 L (11.4-16.0) gm/dL Hct 32.7 L (34.0-46.0) % Plt Count 146 L (150-450) k/uL Neutrophils # 9.8 H (1.3-7.7) k/uL Lymphocytes # 0.1 L (1.0-4.8) k/uL ABG pCO2 (35-45) mmHg ABG pO2 (83-108) mmHg ABG HCO3 (21-25) mmol/L ABG Total CO2 (19-24) mmol/L ABG O2 Saturation (94-97) % Sodium (137-145) mmol/L Chloride (98-107) mmol/L Creatinine (0.52-1.04) mg/dL Glucose (74-99) mg/dL POC Glucose (mg/dL) 133 H 162 H (75-99) mg/dL Phosphorus (2.5-4.5) mg/dL Total Protein (6.3-8.2) g/dL Albumin (3.5-5.0) g/dL Hep C IgG Ab (Non-Reactive) 10/01/18 10/01/18 10/01/18 Range/Units 04:20 04:33 05:52 RBC (3.80-5.40) m/uL Hgb (11.4-16.0) gm/dL Hct (34.0-46.0) % Plt Count (150-450) k/uL Neutrophils # (1.3-7.7) k/uL Lymphocytes # (1.0-4.8) k/uL ABG pCO2 49 H (35-45) mmHg ABG pO2 145 H (83-108) mmHg ABG HCO3 29 H (21-25) mmol/L ABG Total CO2 31 H (19-24) mmol/L ABG O2 Saturation 98.2 H (94-97) % Sodium 136 L (137-145) mmol/L Chloride 110 H (98-107) mmol/L Creatinine 0.49 L (0.52-1.04) mg/dL Glucose 176 H (74-99) mg/dL POC Glucose (mg/dL) 187 H (75-99) mg/dL Phosphorus (2.5-4.5) mg/dL Total Protein 3.9 L (6.3-8.2) g/dL Albumin 2.1 L (3.5-5.0) g/dL Hep C IgG Ab (Non-Reactive) Microbiology - Last 24 Hours (Table) 09/29/18 15:20 CSF Gram Stain - Preliminary Cerebral Spinal Fluid CSF Culture - Preliminary 09/30/18 20:02 Gram Stain - Preliminary Sputum Sputum Culture - Preliminary 09/28/18 17:39 Blood Culture - Preliminary Blood No Growth after 48 hours 09/29/18 10:11 Urine Culture - Final Urine,Catheterized Assessment and Plan (1) Non-small cell lung cancer Narrative/Plan: Pt has Hx of stage IIIA NSCLC, most recent treatment with immunotherapy 2 mo ago. CSF pending cytology Pending MRI brain after recovered from mechanical ventilation Current Visit: No Status: Chronic Priority: Medium Code(s): C34.90 - MALIGNANT NEOPLASM OF UNSP PART OF UNSP BRONCHUS OR LUNG SNOMED Code(s): 992668567 Plan: Defer ICU mgmt to Critical Care team. Did explain to family at bedside that work up continues for evaluation of cause of respiratory failure and pt rapid decline, reassured them that pt is receiving aggressive care. Pt has been off of imfinzi since Aug, unclear at this time if pt has disease progression in the brain-CT was negative-pending stability to order MRI, CSF cytology is still pending Will continue to follow with you and update from a Hem/Onc standpoint
[2018-10-01] MEDS ORDERED: VANCOMYCIN TROUGH DUE 1 EACH MISC MISCELLANE ONE (11:00)
--- NOTE | 2018-10-01 12:27 | P.PN ---
Subjective Progress Note Date: 10/01/18 Principal diagnosis: Acute mental status change, stage III non-small cell lung cancer This is a very pleasant 63-year-old female patient who follows with Dr. Benoit as her primary care physician. She has a history of CVA/TIA, fibromyalgia, gastroesophageal reflux disease, hyperlipidemia, hypothyroidism, chronic back pain, depression. She also has a history of chronic tobacco dependence, oxygen dependent chronic obstructive pulmonary disease with an FEV1 value of 56% of pre dicted, and non-small cell lung cancer stage III adenocarcinoma. She follows with Dr. Fan in our office. This was diagnosed by an FNA of a left upper lobe lesion by IR in November 2016. She had received concurrent chemoradiation with subsequent additional chemotherapy and then placed on maintenance mmunotherapy of Imfinzi back in December 2017. Her last PET scan in March 2018 revealed continued left upper lobe mass with irregular margins extending to the pleural surface, spiculated appearance but was stable compared to previous and October 2017. The SUV value was only 1.7. Subsequent computed tomography scan of the chest in July 2018 revealed a stable and slightly smaller spiculated mass of the left upper lobe measuring 2.5 x 2.4 cm versus 3.0 x 2.6 previous. No evidence of recurrence or metastasis. The patient was in the hospital back in early September 2018 and she was having ongoing issues with nausea vomiting profound weakness and fatigue. She decided to stop taking the immunotherapy. She had been treated for his COPD exacerbation 08/22/[address] in our office [address] Dr. Fan where she received steroids and Bactrim. She did improve for the first week or so. She presented to the emergency room yesterday with complaints of increasing shortness of breath cough and congestion. She did have some lower extremity edema. She was still quite weak and fatigued. ome dyspnea on exertion. The patient was discharged home on 09/17/2018 as the patient shortness of breath improved and the patient recovered from her acute COPD exacerbation and she was discharged home on her usual routine medications which included also morphine sulfate 30 mg by mouth twice a day Percocet 04/11/2025 every 6 hours and a when necessary basis. In terms of her lung medication she was maintained on a combi nation of Symbicort and Incruse. She is also on Synthroid 25 g by mouth daily. She was given Lasix to be taken on an as needed basis.The patient came in yesterday to the burst department 3 day history of altered mental status. According to the family the patient was acting weird. She was acting unusual and she was confused. She was also very weak and she was having episodes of fall. I do see a bruise over her forehead. The family tells that she did not have any active had trauma. No seizure activity. No neck stiffness. No documented fever. She was thrashing significantly yesterday. A CAT scan of the head was done that showed no acute process. CAT scan of abdomen and pelvis was done that showed urinary bladder distention along with extensive colonic stool. The patient's ammonia level was at 28. Urine and blood cultures were ordered. The influenza screen was negative. The that was at 19.7 the patient was given a dose of 1 g of Rocephin and she was admitted to the oncology unit. Overnight the patient continued to be the same. Earlier this morning I was informed about this patient by the nurse practitioners and I was able to see it on the floor and I asked her to be transferred to the intensive care unit. She did not have any neck stiffness. No fever. She was at times morning. Other times she would open up her eyes and follows some simple commands. I was told that this is an improvement in her condition compared to yesterday. She was able to follow some simple commands however she has not been consistent in following orders. His speech is minimal and the patient may safely worse. She denies being in pain. Urine toxin was ordered. She was given a dose of Narcan here in the ICU without much improvement. Blood gases showed a pH of 7.3 with a pCO2 of 47 and pO2 of 136 and there is no evidence of any CO2 narcosis. Her white cell count is down to 14.8. The rest of the blood work is all within normal limits with a exception of some mild elevation of the LFTs with an AST of 65, ALT of 79 and alkaline phosphatase of 219. Troponins of 0.04. Serum albumin is at 3.8. The coagulation profile is within normal. The chest x-ray is not showing any acute process. Today's evaluation of 09/30/2018 I'm seeing this patient for a follow-up. E vents from yesterday were noted. The patient came in to the ICU. She was extremely agitated and restless, having tachypnea tachycardia and blood pressure was up. She received several doses of Haldol without any improvement. She continued to be altered and tomorrow mentation. At that point, the patient was given propofol and subsequently she was intubated and placed on a mechanical ventilator. Her sedation requirements stayed quite high throughout the night. The patient was receiving maximum dose of propofol which is currently running at 50 g per KG per minute. Fentanyl had to be also added for sedation and fentanyl is at high as 160 g KG per hour. She is much well rested for now. She is very symptoms with the mechanical ventilator. She is set at a tidal volume of 400 and FiO2 of 40% and PEEP of 5 and a rate of 14. Blood gases from today showed a pH of 7. raphae with a pCO2 of 44 and pO2 of 195. This was on FiO2 of 50% and subsequently she was weaned down to 40%. His x-ray from today shows this small new left-sided pleural effusion. Patient was reevaluated today on 10/01/2018, patient remains on mechanical ventilation, she is on assist control rate of 14 tidal volume of 400 FiO2 of 40% and PEEP of 5. Remains on propofol drip, she is also on fentanyl drip, apparent ly patient was extremely agitated yesterday, and she required a significant amount of sedation. Her propofol is at 50 mcg/kg/m, and her fentanyl is 160 mcg/h. Seems to be resting while on mechanical ventilation. Sedated, and difficult to arouse. Hence I recommended cutting down the fentanyl drip to half of the dose she is presently on, and we need to assess her mental status and decide whether the patient could even be weaned at all. She underwent lumbar puncture by Dr. 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 PCR for HSV is pending. Repeat CT of the brain has been unremarkable. No evidence of any stroke. Labs were all reviewed today, ABG showed a pO2 of 145 pCO2 of 49 pH of 7.38. Electrolytes and renal profile are normal. CBC is relatively unremarkable, hemoglobin is 10.2. Chest x-ray from yesterday showed new small left pleural effusion minimal atelectasis Objective - Vital Signs Vital signs: Vital Signs Temp 97.8 F 10/01/18 08:00 Pulse 66 10/01/18 12:11 Resp 14 10/01/18 10:00 BP 104/62 10/01/18 07:00 Pulse Ox 98 10/01/18 10:00 Intake & Output 09/30/18 10/01/18 10/01/18 18:59 06:59 18:59 Intake Total 3965.384 6538.205 666.405 Output Total 565 365 85 Balance 338.180 6719.205 581.405 Weight 54.1 kg 57.6 kg Intake: IV 600 1300 400 Acyclovir Sodium 500 mg 100 In Sodium Chloride 0.9% 100 ml @ 100 mls/hr IVPB Q8HR [facility] Rx#:[id number] Normal Saline 1200 300 Potassium Chloride 20 meq 200 In Water For Injection 1 100ml.bag @ 50 mls/hr IVPB Q2H [facility] Rx#: [id number] Sodium Chloride 0.9% 1, 400 100 000 ml @ 100 mls/hr IV . Q10H [facility] Rx#:[id number] Intake, IV Titration 467.341 0816.205 161.405 Amount Acyclovir Sodium 500 mg 100 In Sodium Chloride 0.9% 100 ml @ 100 mls/hr IVPB Q8HR [facility] Rx#:[id number] Magnesium Sulfate-D5w Pmx 400 1 gm In Dextrose/Water 1 100ml.bag @ 100 mls/hr IVPB Q1H [facility] Rx#: [id number] Propofol 1,000 mg In 185.478 162.301 63.838 Empty Bag 1 bag @ Titrate IV .Q0M [facility] Rx#: [id number] Sodium Chloride 0.9% 1, 100 000 ml @ 100 mls/hr IV . Q10H [facility] Rx#:[id number] Vancomycin 1,000 mg In 625 Sodium Chloride 0.9% 250 ml @ 125 mls/hr IVPB Q8H [facility] Rx#:[id number] fentaNYL (PF) 1,000 mcg 193.347 173.904 97.567 In Sodium Chloride 0.9% 80 ml @ 1 MCG/KG/HR 5.443 mls/hr IV .[id number] [facility] Rx#:[id number] Tube Feeding 10 335 75 Other 90 30 Output: Urine 565 365 85 Other: Voiding Method Indwelling Catheter Indwelling Catheter Indwelling Catheter ABP, PAP, CO, CI - Last Documented Arterial Blood Pressure 104/47 - Exam Physical Exam: Revealed a 63-year-old female, comfortable, on mechanical ventilation, sedated, on propofol and on phenytoin. Orogastric tube and orotracheal tubes are noted to be intact Head: Atraumatic, normocephalic. HEENT:[Neck is supple.] [No neck masses.] [No thyromegaly.] [No JVD.] PERRLA, EOMI, no icterus. Endotracheal tube and oral gastric tube are intact Chest: [Diminished breath sounds at the bases, no crackles, no rhonchi no wheezes. Symmetrical chest expansion is noted no chest wall tenderness..] Cardiac Exam: [Normal S1 and S2, no S3 gallop, no murmur.] Abdomen: [Soft, nontender, no megaly, no rebound, no guarding, normal bowel sounds.] Extremities: [No clubbing, no edema, no cyanosis.] Good pulses bilaterally. Neurological Exam: Cannot be assessed, fully sedated and on propofol as well as fentanyl. Psychiatric: Could not be assessed. Lymphatics: No lymphadenopathy. Skin: No rashes. - Labs CBC & Chem 7: 10/01/18 04:20 10/01/18 04:20 Labs: Abnormal Lab Results - Last 24 Hours (Table) 09/30/18 09/30/18 09/30/18 Range/Units 04:15 04:15 17:00 RBC (3.80-5.40) m/uL Hgb (11.4-16.0) gm/dL Hct (34.0-46.0) % Plt Count (150-450) k/uL Neutrophils # (1.3-7.7) k/uL Lymphocytes # (1.0-4.8) k/uL ABG pCO2 (35-45) mmHg ABG pO2 (83-108) mmHg ABG HCO3 (21-25) mmol/L ABG Total CO2 (19-24) mmol/L ABG O2 Saturation (94-97) % Sodium (137-145) mmol/L Chloride (98-107) mmol/L Creatinine (0.52-1.04) mg/dL Glucose (74-99) mg/dL POC Glucose (mg/dL) 133 H (75-99) mg/dL Phosphorus 2.1 L (2.5-4.5) mg/dL Total Protein (6.3-8.2) g/dL Albumin (3.5-5.0) g/dL Hep C IgG Ab Reactive H (Non-Reactive) 09/30/18 10/01/18 10/01/18 Range/Units 23:26 04:20 04:20 RBC 3.28 L (3.80-5.40) m/uL Hgb 10.2 L (11.4-16.0) gm/dL Hct 32.7 L (34.0-46.0) % Plt Count 146 L (150-450) k/uL Neutrophils # 9.8 H (1.3-7.7) k/uL Lymphocytes # 0.1 L (1.0-4.8) k/uL ABG pCO2 (35-45) mmHg ABG pO2 (83-108) mmHg ABG HCO3 (21-25) mmol/L ABG Total CO2 (19-24) mmol/L ABG O2 Saturation (94-97) % Sodium 136 L (137-145) mmol/L Chloride 110 H (98-107) mmol/L Creatinine 0.49 L (0.52-1.04) mg/dL Glucose 176 H (74-99) mg/dL POC Glucose (mg/dL) 162 H (75-99) mg/dL Phosphorus (2.5-4.5) mg/dL Total Protein 3.9 L (6.3-8.2) g/dL Albumin 2.1 L (3.5-5.0) g/dL Hep C IgG Ab (Non-Reactive) 10/01/18 10/01/18 Range/Units 04:33 05:52 RBC (3.80-5.40) m/uL Hgb (11.4-16.0) gm/dL Hct (34.0-46.0) % Plt Count (150-450) k/uL Neutrophils # (1.3-7.7) k/uL Lymphocytes # (1.0-4.8) k/uL ABG pCO2 49 H (35-45) mmHg ABG pO2 145 H (83-108) mmHg ABG HCO3 29 H (21-25) mmol/L ABG Total CO2 31 H (19-24) mmol/L ABG O2 Saturation 98.2 H (94-97) % Sodium (137-145) mmol/L Chloride (98-107) mmol/L Creatinine (0.52-1.04) mg/dL Glucose (74-99) mg/dL POC Glucose (mg/dL) 187 H (75-99) mg/dL Phosphorus (2.5-4.5) mg/dL Total Protein (6.3-8.2) g/dL Albumin (3.5-5.0) g/dL Hep C IgG Ab (Non-Reactive) Microbiology - Last 24 Hours (Table) 09/29/18 15:20 CSF Gram Stain - Preliminary Cerebral Spinal Fluid CSF Culture - Preliminary 09/30/18 20:02 Gram Stain - Preliminary Sputum Sputum Culture - Preliminary 09/28/18 17:39 Blood Culture - Preliminary Blood No Growth after 48 hours 09/29/18 10:11 Urine Culture - Final Urine,Catheterized Assessment and Plan Assessment: Impression: 1 acute mental status change, acute encephalopathy exact etiology is not clear, viral encephalitis is in the differential. Patient is status post lumbar puncture, and she is on acyclovir for the time being. No signs of CVA noted on the CT of the brain. 2 extreme agitation requiring significant amount of sedation leading to intubation and mechanical ventilation. Again the possibility of viral encephalitis is being highly considered. The report on the spinal fluid was noted. Patient remains on acyclovir. 3 stage III non-small cell lung cancer status post chemo and radiation therapy and she is receiving immunotherapy on outpatient basis. 4 history of fibromyalgia 5 chronic back pain 6 severe COPD 7 previous CVA/TIA 8 history of depression Recommendation: Continue present ventilatory support, continue sedation but will cut down the dose of fentanyl, no plans to wean the patient or extubated the patient today. Continue empiric antibiotics coverage, continue acyclovir, continue Rocephin and vancomycin, ventilator settings were reviewed and adjusted accordingly. Continue GI and DVT prophylaxis, nutritional support, bronchodilators and systemic steroids, no plans to wean or extubated the patient today. Patient is relatively critically ill. And not ready for weaning at this point. Critical care time is 40 minutes Time with Patient: Greater than 30
[2018-10-01 12:31] LABS: Hemoglobin A1C 6.2 % (4.0-6.0)
[2018-10-01] MEDS: CLEVIDIPINE BUTYRATE 25 MG in EMPTY BAG 1 BAG IV SCH (12:34)
[2018-10-01 12:38] LABS: Glucose,Whole Blood 206 mg/dL (75-99)
--- NOTE | 2018-10-01 14:43 | P.GSCN ---
History of Present Illness Consult date: 10/01/18 Reason for Consult: Cholecystitis Requesting physician: Karina Cobian History of present illness: CHIEF COMPLAINT: Cholecystitis HISTORY OF PRESENT ILLNESS: 63-year-old female with a history of lung cancer who is admitted to the hospital secondary to mental status changes. Abdominal ultrasound was performed this morning secondary to elevated liver enzymes upon admission. Ultrasound revealing sludge within the gallbladder and some pericholecystic fluid. General surgery was consulted for further evaluation. The patient is currently intubated and sedated. Mother and aunt are at the bedside who were able to answer some questions. Mother reports patient was not acting like herself prior to coming to the hospital. She reports that the patient is a [employer] and does not curse and the patient was cursing frequently and she knew something was not right so they brought her to the hospital. Her mother denies nausea or vomiting prior to hospitalization. Mother denied constipation or diarrhea to her knowledge. She did report the patient had a 'stomach-ache" the day she came to the hospital. Liver enzymes were mildly elevated upon admission, but have since normalized. PAST MEDICAL HISTORY: See list. PAST SURGICAL HISTORY: See list. SOCIAL HISTORY: No illicit drug use. REVIEW OF SYSTEMS: Unable to thoroughly obtain secondary to mechanical ventilation and sedation PHYSICAL EXAM: VITAL SIGNS: Reviewed. GENERAL: Well-developed in no acute distress. Sedated on ventilator. HEENT: ET tube intact. No sclera icterus. Extraocular movements grossly intact. Moist buccal mucosa. Head is atraumatic, normocephalic. ABDOMEN: Soft. Nondistended. Nontender. NEUROLOGIC: Sedated on ventilator. IMAGIN. Abdominal ultrasound: Sludge within the gallbladder. Pericholecystic fluid. Gallbladder wall 0.25 cm. Common bile duct 0.[address] abdomen and pelvis: No significant abnormality of gallbladder visualized ASSESSMENT: 1. Chronic cholecystitis PLAN: No immediate surgical intervention at this time. Patient may be re-evaluated on an outpatient basis once she is more stable and recovers from current acute illness. Nurse practitioner note has been reviewed by physician. Signing provider agrees with the documented findings, assessment, and plan of care. Past Medical History Past Medical History: Cancer, COPD, CVA/TIA, Fibromyalgia, GERD/Reflux, Hyperlipidemia, Osteoarthritis (OA), Pneumonia Additional Past Medical History / Comment(s): Non-small cell lung cancer stage 3 adenocarcinoma, COPD, fibromyalgia, acid reflux, hyperlipidemia, osteoarthritis, adrenal mass that has remained stable over some time, TIA history of, hiatal hernia, chronic constipation, chronic back pain, degenerative arthritis History of Any Multi-Drug Resistant Organisms: None Reported Additional Past Surgical History / Comment(s): SINUS surgery Past Anesthesia/Blood Transfusion Reactions: No Reported Reaction Past Psychological History: Depression Smoking Status: Former smoker Past Alcohol Use History: None Reported Past Drug Use History: None Reported - Past Family History Mother Family Medical History: Cancer Father Family Medical History: Cancer Medications and Allergies Home Medications Medication Instructions Recorded Confirmed Type Albuterol Inhaler [Ventolin Hfa 2 puff INHALATION RT-QID PRN 12/03/13 09/28/18 History Inhaler] Cevimeline [Evoxac] 30 mg PO BID 12/03/13 09/28/18 History Escitalopram [Lexapro] 20 mg PO DAILY 12/03/13 09/28/18 History Esomeprazole Magnesium [NexIUM] 40 mg PO BID 12/03/13 09/28/18 History Morphine Sulfate [Ms Contin] 30 mg PO BID #60 tablet.er 03/11/15 09/28/18 Rx oxyCODONE-APAP 10-325MG [Percocet 1 tab PO Q6H PRN 09/05/16 09/28/18 History 10-325 mg] Albuterol Nebulized [Ventolin 2.5 mg INHALATION RT-QID PRN 02/23/17 09/28/18 History Nebulized] Budesonide-Formot 160-4.5 Mcg 2 puff INHALATION RT-BID 02/23/17 09/28/18 History [Symbicort 160-4.5 Mcg Inhaler] Ondansetron Odt [Zofran ODT] 8 mg PO Q6H PRN 02/23/17 09/28/18 History Prochlorperazine [Compazine] 10 mg PO Q6H PRN 02/23/17 09/28/18 History ALPRAZolam [Xanax] 0.25 mg PO DIRECTED PRN 01/20/18 09/28/18 History Cholecalciferol [Vitamin D3] 1,000 unit PO DAILY 09/13/18 09/28/18 History Cyanocobalamin (Vitamin B-12) 1,000 mcg PO BID 09/13/18 09/28/18 History [Vitamin B-12] Folic Acid 0.4 mg PO DAILY 09/13/18 09/28/18 History Furosemide [Lasix] 40 mg PO TID 09/13/18 09/28/18 History Levothyroxine Sodium [Synthroid] 25 mcg PO DAILY 09/13/18 09/28/18 History Umeclidinium [place] [Incruse 1 puff INHALATION RT-DAILY 09/13/18 09/28/18 History Ellipta] guaiFENesin [Mucinex] 600 mg PO DAILY PRN 09/13/18 09/28/18 History LORazepam [Ativan] 0.5 mg PO Q6H PRN 09/28/18 09/28/18 History Pyridoxine HCl (Vitamin B6) 100 mg PO DAILY 09/28/18 09/28/18 History [Vitamin B-6] Tolterodine Tartrate [Detrol LA] 4 mg PO DAILY 09/28/18 09/28/18 History Allergies Allergy/AdvReac Type Severity Reaction Status Date / Time No Known Allergies Allergy Verified 09/28/18 17:39 Surgical - Exam Vital Signs Temp Pulse Resp BP Pulse Ox 99 F 99 28 H 166/116 90 L 09/28/18 17:33 09/28/18 17:33 09/28/18 17:33 09/28/18 17:33 09/28/18 17:33 Results - Labs 10/01/18 04:20 10/01/18 04:20 Abnormal Lab Results - Last 24 Hours (Table) 09/30/18 09/30/18 09/30/18 Range/Units 04:15 04:15 04:15 RBC (3.80-5.40) m/uL Hgb (11.4-16.0) gm/dL Hct (34.0-46.0) % Plt Count (150-450) k/uL Neutrophils # (1.3-7.7) k/uL Lymphocytes # (1.0-4.8) k/uL ABG pCO2 (35-45) mmHg ABG pO2 (83-108) mmHg ABG HCO3 (21-25) mmol/L ABG Total CO2 (19-24) mmol/L ABG O2 Saturation (94-97) % Sodium (137-145) mmol/L Chloride (98-107) mmol/L Creatinine (0.52-1.04) mg/dL Glucose (74-99) mg/dL POC Glucose (mg/dL) (75-99) mg/dL Hemoglobin A1c 6.2 H (4.0-6.0) % Phosphorus 2.1 L (2.5-4.5) mg/dL Total Protein (6.3-8.2) g/dL Albumin (3.5-5.0) g/dL Hep C IgG Ab Reactive H (Non-Reactive) 09/30/18 09/30/18 10/01/18 Range/Units 17:00 23:26 04:20 RBC 3.28 L (3.80-5.40) m/uL Hgb 10.2 L (11.4-16.0) gm/dL Hct 32.7 L (34.0-46.0) % Plt Count 146 L (150-450) k/uL Neutrophils # 9.8 H (1.3-7.7) k/uL Lymphocytes # 0.1 L (1.0-4.8) k/uL ABG pCO2 (35-45) mmHg ABG pO2 (83-108) mmHg ABG HCO3 (21-25) mmol/L ABG Total CO2 (19-24) mmol/L ABG O2 Saturation (94-97) % Sodium (137-145) mmol/L Chloride (98-107) mmol/L Creatinine (0.52-1.04) mg/dL Glucose (74-99) mg/dL POC Glucose (mg/dL) 133 H 162 H (75-99) mg/dL Hemoglobin A1c (4.0-6.0) % Phosphorus (2.5-4.5) mg/dL Total Protein (6.3-8.2) g/dL Albumin (3.5-5.0) g/dL Hep C IgG Ab (Non-Reactive) 10/01/18 10/01/18 10/01/18 Range/Units 04:20 04:33 05:52 RBC (3.80-5.40) m/uL Hgb (11.4-16.0) gm/dL Hct (34.0-46.0) % Plt Count (150-450) k/uL Neutrophils # (1.3-7.7) k/uL Lymphocytes # (1.0-4.8) k/uL ABG pCO2 49 H (35-45) mmHg ABG pO2 145 H (83-108) mmHg ABG HCO3 29 H (21-25) mmol/L ABG Total CO2 31 H (19-24) mmol/L ABG O2 Saturation 98.2 H (94-97) % Sodium 136 L (137-145) mmol/L Chloride 110 H (98-107) mmol/L Creatinine 0.49 L (0.52-1.04) mg/dL Glucose 176 H (74-99) mg/dL POC Glucose (mg/dL) 187 H (75-99) mg/dL Hemoglobin A1c (4.0-6.0) % Phosphorus (2.5-4.5) mg/dL Total Protein 3.9 L (6.3-8.2) g/dL Albumin 2.1 L (3.5-5.0) g/dL Hep C IgG Ab (Non-Reactive) 10/01/18 Range/Units 12:26 RBC (3.80-5.40) m/uL Hgb (11.4-16.0) gm/dL Hct (34.0-46.0) % Plt Count (150-450) k/uL Neutrophils # (1.3-7.7) k/uL Lymphocytes # (1.0-4.8) k/uL ABG pCO2 (35-45) mmHg ABG pO2 (83-108) mmHg ABG HCO3 (21-25) mmol/L ABG Total CO2 (19-24) mmol/L ABG O2 Saturation (94-97) % Sodium (137-145) mmol/L Chloride (98-107) mmol/L Creatinine (0.52-1.04) mg/dL Glucose (74-99) mg/dL POC Glucose (mg/dL) 206 H (75-99) mg/dL Hemoglobin A1c (4.0-6.0) % Phosphorus (2.5-4.5) mg/dL Total Protein (6.3-8.2) g/dL Albumin (3.5-5.0) g/dL Hep C IgG Ab (Non-Reactive) Microbiology - Last 24 Hours (Table) 09/30/18 20:02 Gram Stain - Preliminary Sputum Sputum Culture - Preliminary 09/29/18 15:20 CSF Gram Stain - Preliminary Cerebral Spinal Fluid CSF Culture - Preliminary 09/28/18 17:39 Blood Culture - Preliminary Blood No Growth after 48 hours 09/29/18 10:11 Urine Culture - Final Urine,Catheterized Diabetes panel 09/30/18 09/30/18 10/01/18 Range/Units 04:15 16:40 04:20 Sodium 136 L (137-145) mmol/L Potassium 3.5 4.0 (3.5-5.1) mmol/L Chloride 110 H (98-107) mmol/L Carbon Dioxide 27 (22-30) mmol/L BUN 15 (7-17) mg/dL Creatinine 0.49 L (0.52-1.04) mg/dL Glucose 176 H (74-99) mg/dL Hemoglobin A1c 6.2 H (4.0-6.0) % Calcium 8.4 (8.4-10.2) mg/dL AST 24 (14-36) U/L ALT 43 (9-52) U/L Alkaline Phosphatase 126 (38-126) U/L Total Protein 3.9 L (6.3-8.2) g/dL Albumin 2.1 L (3.5-5.0) g/dL Calcium panel 09/30/18 10/01/18 Range/Units 04:15 04:20 Calcium 8.4 (8.4-10.2) mg/dL Phosphorus 2.1 L (2.5-4.5) mg/dL Albumin 2.1 L (3.5-5.0) g/dL Pituitary panel 09/30/18 10/01/18 Range/Units 16:40 04:20 Sodium 136 L (137-145) mmol/L Potassium 3.5 4.0 (3.5-5.1) mmol/L Chloride 110 H (98-107) mmol/L Carbon Dioxide 27 (22-30) mmol/L BUN 15 (7-17) mg/dL Creatinine 0.49 L (0.52-1.04) mg/dL Glucose 176 H (74-99) mg/dL Calcium 8.4 (8.4-10.2) mg/dL Adrenal panel 09/30/18 10/01/18 Range/Units 16:40 04:20 Sodium 136 L (137-145) mmol/L Potassium 3.5 4.0 (3.5-5.1) mmol/L Chloride 110 H (98-107) mmol/L Carbon Dioxide 27 (22-30) mmol/L BUN 15 (7-17) mg/dL Creatinine 0.49 L (0.52-1.04) mg/dL Glucose 176 H (74-99) mg/dL Calcium 8.4 (8.4-10.2) mg/dL Total Bilirubin 0.3 (0.2-1.3) mg/dL AST 24 (14-36) U/L ALT 43 (9-52) U/L Alkaline Phosphatase 126 (38-126) U/L Total Protein 3.9 L (6.3-8.2) g/dL Albumin 2.1 L (3.5-5.0) g/dL
[2018-10-01 17:55] LABS: Glucose,Whole Blood 145 mg/dL (75-99)
[2018-10-01] MEDS: NOREPINEPHRINE 4 MG in SODIUM CHLORIDE 0.9% 250 ML IV SCH (19:51)
[2018-10-02 00:06] LABS: Glucose,Whole Blood 128 mg/dL (75-99)
[2018-10-02] MEDS: INSULIN ASPART (NovoLOG) 100 UNIT/ML VIAL SQ SCH ×5 (00:28→23:29)
--- NOTE | 2018-10-02 00:28 | PN ---
PROGRESS NOTE DATE OF SERVICE: 10/01/2018 REASON FOR FOLLOWUP: Infection. INTERVAL HISTORY: The patient is currently afebrile. The patient is hemodynamically stable, not on any pressor support. FiO2 is currently stable, down to 35%. She is tolerating her tube feeds. No diarrhea per the nursing staff. She is currently sedated on the vent, unable to provide any history. PHYSICAL EXAMINATION: Blood pressure 108/49, pulse of 52, temperature 98. She is 99% on 35% FiO2. General description is an elderly female lying in bed in no distress. RESPIRATORY SYSTEM: Unlabored breathing with decreased breath sounds at the base. No wheeze. HEART: S1, S2. Regular rate and rhythm. ABDOMEN: Soft. No tenderness. EXTREMITIES: No edema of the feet. LABS: Hemoglobin 10.2, white count of 10.4, BUN of 15, creatinine 0.49. DIAGNOSTIC IMPRESSION AND PLAN: Patient with leukocytosis which is likely multifactorial in this patient with a question of chronic cholecystitis. Seen by Surgery, who is recommending no acute intervention. The patient negative. Chest x-ray with some atelectasis and consolidation. Sputum culture is currently pending. We will keep the patient on Rocephin and vancomycin while waiting for the sputum culture to finalize. However, discontinue the acyclovir, monitoring clinical course closely. Continue with supportive care. MMODL / IJN: [id number] /
[2018-10-02] MEDS: PROPOFOL 1,000 MG in EMPTY BAG 1 BAG IV SCH ×2 (04:00→08:20)
--- NOTE | 2018-10-02 04:55 | EEG ---
ELECTROENCEPHALOGRAM REPORT ELECTROENCEPHALOGRAM (EEG) REPORT: TECHNIQUE: A routine 18-channel EEG was performed with video using the 10-20 international electrode placement system. HISTORY: Patient brought to the emergency room for altered mental status for 2 days. She has stage III lung cancer. Patient is currently intubated and sedated on Diprivan. Other medical history includes COPD, gastroesophageal reflux and other conditions. CURRENT MEDICATIONS: 1. Propofol. 2. Compazine. 3. Protonix. 4. Vancomycin. 5. Magnesium. 6. Levothyroxine. STUDY DURATION: 25 minutes. FINDINGS: Overall, this recording was of low amplitude and interpretation was performed at 5- microvolt sensitivity. BACKGROUND: A sustained posterior dominant rhythm was not seen. ACTIVATION: Hyperventilation: Not performed. Photic stimulation: No driving seen. Sleep: Drowsy. ABNORMALITIES: 1. This EEG demonstrated a modified burst suppression pattern. Diffuse synchronous and asynchronous 3-4 Hz slow wave activity was seen, by relative periods of electrical suppression. 2. Rare poorly formed triphasic waves were seen. IMPRESSION: Abnormal EEG. This EEG demonstrated a modified burst suppression pattern. The bursts consisted of diffuse synchronous and asynchronous delta range slowing of low amplitude. These findings are not epileptiform in nature. In combination, these findings indicate severe diffuse cerebral dysfunction as may be seen in a toxometabolic encephalopathy. Triphasic waves can be seen in the setting of metabolic encephalopathy. These findings were called to the patient's nurse at 4:30 p.m. on 10/01/2018. MMABDIL / ADALBERTO: [id number] /
[2018-10-02 04:59] LABS: Basophils % (A) 0 %; Eosinophils # (A) 0.1 k/uL (0-0.7); Eosinophils % (A) 1 %; HCT 32.3 % (34.0-46.0); HGB 10.4 gm/dL (11.4-16.0); Lymphocytes # (A) 0.2 k/uL (1.0-4.8); Lymphocytes % (A) 2 %; MCHC 32.1 g/dL (31.0-37.0); MCV 99.7 fL (80.0-100.0); Macrocytosis Slight; Mean Platelet Volume 8.1; Monocytes # (A) 0.4 k/uL (0-1.0); Monocytes % (A) 4 %; Neutrophils # (A) 9.5 k/uL (1.3-7.7); Neutrophils % (A) 94 %; Platelet Count 141 k/uL (150-450); RBC 3.24 m/uL (3.80-5.40); WBC 10.2 k/uL (3.8-10.6)
[2018-10-02] MEDS: IPRATROPIUM-ALBUTEROL 3 ML NEB INHALATION PRN (05:17)
[2018-10-02 05:35] LABS: ALT 39 U/L (9-52); AST 21 U/L (14-36); Albumin 2.2 g/dL (3.5-5.0); Alkaline Phosphatase 115 U/L (38-126); Anion Gap -2 mmol/L; Blood Urea Nitrogen 17 mg/dL (7-17); Calcium 8.3 mg/dL (8.4-10.2); Carbon Dioxide 28 mmol/L (22-30); Chloride 113 mmol/L (98-107); Glucose 174 mg/dL (74-99); Potassium 4.7 mmol/L (3.5-5.1); Sodium 139 mmol/L (137-145); Total Bilirubin 0.2 mg/dL (0.2-1.3)
[2018-10-02] MEDS: methylPREDNISolone SOD SUCCI 125 MG/2 ML VIAL IV SCH ×4 (06:13→23:23)
[2018-10-02 06:20] LABS: Glucose,Whole Blood 183 mg/dL (75-99)
[2018-10-02] MEDS: IPRATROPIUM-ALBUTEROL 3 ML NEB INHALATION SCH ×5 (07:19→23:18)
[2018-10-02 08:10] LABS: ABG Base Excess 3.3 mmol/L; ABG HCO3 29 mmol/L (21-25); ABG Oxygen Saturation 94.3 % (94-97); ABG PCO2 51 mmHg (35-45); ABG PH 7.36 (7.35-7.45); ABG PO2 71 mmHg (83-108); ABG TCO2 30 mmol/L (19-24)
--- NOTE | 2018-10-02 08:16 | XR ---
EXAMINATION TYPE: XR chest 1V portable DATE OF EXAM: 10/02/2018 COMPARISON: 09/30/2018 HISTORY: Ventilatory dependent respiratory failure. TECHNIQUE: Single frontal view of the chest is obtained. FINDINGS: Trace left pleural effusion blunts the costophrenic angle. Endotracheal tube and enteric t ube appear satisfactorily placed and similar to the prior. Remainder the lungs are well aerated. No p neumothorax is appreciated. Subclavian approach left-sided central venous catheter terminates in the distal superior vena cava. No acute osseous abnormality. IMPRESSION: Satisfactory placement of the lines and tubes and continued evidence of a trace left ple ural effusion.
[2018-10-02] MEDS: MORPHINE SULFATE ER 30 MG TABLET PO SCH ×2 (08:19→20:41)
[2018-10-02] MEDS: ENOXAPARIN 40 MG/0.4 ML SYRINGE SQ SCH (08:21)
[2018-10-02] MEDS: CHLORHEXIDINE GLUCONATE 15 ML CUP MUCOUS MEM SCH ×2 (08:21→20:54)
[2018-10-02] MEDS: LEVOTHYROXINE IVP 100 MCG/5 ML VIAL IV SCH (08:22)
[2018-10-02] MEDS: PANTOPRAZOLE 40 MG/10 ML VIAL IVP SCH (08:22)
--- NOTE | 2018-10-02 10:40 | P.PN ---
Subjective Progress Note Date: 10/02/18 This is a 63-year-old female patient of Dr. mariano. Patient presented to the hospital with complaints of altered mental status changes. She per patient's sister patient started having altered mental status possibly 2 days ago. Patient has a known past medical history of stage III lung cancer. Per patient patient has not received any recent treatment for cancer. Past medical history includes COPD, CVA, fibromyalgia, GERD, hyperlipidemia, osteoarthritis and pneumonia. Chest x-ray completed showing no new process. Head CT completed showing no acute process. CT of abdomen and pelvis dated showing urinary bladder distention excessive colonic stool. Liver enzymes slightly elevated AST 65, ALT 79 and alkaline phosphatase 219. Ammonia level 28. Urine and blood cultures have been ordered. Patient's pH on this admission 7.44 pCO2 57 HCO3 38. WBC 19.5. Influenza ordered. Patient started on Rocephin. At this time patient remains confused and are not able to follow commands. Discussed case with Dr. Jackson per critical care. Mar patient be transferred to the intensive care unit for closer monitoring. Discussed with patient's sister at bedside CODE STATUS. At this time requesting patient be full code. Patient's potassium also low at 2.8. Replacement has been ordered. Infectious disease will be consulted. Oncology service is consulted. On 09/30/2018 patient is currently in the intensive care unit. Patient was intubated yesterday per critical care. At this time patient is sedated. Discussed case with critical care Dr. Jackson, plan to attempt to wake patient u p tomorrow. Lumbar puncture was performed yesterday repeat head CT also performed. At this time vitals do remain stable. Patient patient currently on acylovir, vancomycin and Rocephin. All cultures pending On 10/01/2018 patient remains in the intensive care unit. Patient remains on mechanical ventilation and sedation at this time. Attempt to wean sedation today per critical care team. At this time critical care, infectious disease and oncology services are following. Patient remains on antibiotics and antivirals. Cultures currently pending On 10/02/2017 patient remains in the intensive care unit on mechanical ventilation. Patient is increasingly agitated and unable to weaned from sedation at this time. Per Dr. Swan antivirals have been DC'd. Patient remains on Vanco and Rocephin for IV antibiotics. Objective - Vital Signs Vital signs: Vital Signs Temp 98.1 F 10/02/18 08:00 Pulse 76 10/02/18 10:00 Resp 17 10/02/18 10:00 BP 104/62 10/02/18 10:00 Pulse Ox 96 10/02/18 10:00 Intake & Output 10/01/18 10/02/18 10/02/18 18:59 06:59 18:59 Intake Total 2176.405 1969.860 597.898 Output Total 310 380 235 Balance 5130.438 4260.860 362.898 Weight 63 kg Intake: IV 1600 1200 400 Acyclovir Sodium 500 mg 200 In Sodium Chloride 0.9% 100 ml @ 100 mls/hr IVPB Q8HR [facility] Rx#:[id number] Normal Saline 1100 1200 400 Vancomycin 1,000 mg In 250 Sodium Chloride 0.9% 250 ml @ 125 mls/hr IVPB Q8H [facility] Rx#:[id number] cefTRIAXone 1 gm In 50 Sodium Chloride 0.9% 50 ml @ 100 mls/hr IVPB Q24HR [facility] Rx#:[id number] Intake, IV Titration 261.405 379.860 147.898 Amount Propofol 1,000 mg In 163.838 166.814 70.33 Empty Bag 1 bag @ Titrate IV .Q0M [facility] Rx#: [id number] Vancomycin 1,000 mg In 125 Sodium Chloride 0.9% 250 ml @ 125 mls/hr IVPB Q12H [facility] Rx#:[id number] fentaNYL (PF) 1,000 mcg 97.567 88.046 77.568 In Sodium Chloride 0.9% 80 ml @ 1 MCG/KG/HR 5.443 mls/hr IV .[id number] [facility] Rx#:[id number] Tube Feeding 225 300 50 Other 90 90 Output: Urine 310 380 235 Other: Voiding Method Indwelling Catheter Indwelling Catheter ABP, PAP, CO, CI - Last Documented Arterial Blood Pressure 144/63 - Exam Head normocephalic Neck supple Lungs mechanically vented Heart regular rate and rhythm S1-S2, no rub or gallop Abdomen is soft nontender nondistended positive bowel sounds no hepatosplenomegaly Extremities no edema Neuro sedated at this time - Labs CBC & Chem 7: 10/02/18 04:45 10/02/18 04:45 Labs: Abnormal Lab Results - Last 24 Hours (Table) 09/30/18 09/30/18 10/01/18 Range/Units 04:15 04:15 12:26 RBC (3.80-5.40) m/uL Hgb (11.4-16.0) gm/dL Hct (34.0-46.0) % RDW (11.5-15.5) % Plt Count (150-450) k/uL Neutrophils # (1.3-7.7) k/uL Lymphocytes # (1.0-4.8) k/uL ABG pCO2 (35-45) mmHg ABG pO2 (83-108) mmHg ABG HCO3 (21-25) mmol/L ABG Total CO2 (19-24) mmol/L Chloride (98-107) mmol/L Creatinine (0.52-1.04) mg/dL Glucose (74-99) mg/dL POC Glucose (mg/dL) 206 H (75-99) mg/dL Hemoglobin A1c 6.2 H (4.0-6.0) % Calcium (8.4-10.2) mg/dL Ammonia (<30) umol/L Total Protein (6.3-8.2) g/dL Albumin (3.5-5.0) g/dL Hep C IgG Ab Reactive H (Non-Reactive) 10/01/18 10/01/18 10/02/18 Range/Units 17:44 23:54 04:45 RBC 3.24 L (3.80-5.40) m/uL Hgb 10.4 L (11.4-16.0) gm/dL Hct 32.3 L (34.0-46.0) % RDW 16.0 H (11.5-15.5) % Plt Count 141 L (150-450) k/uL Neutrophils # 9.5 H (1.3-7.7) k/uL Lymphocytes # 0.2 L (1.0-4.8) k/uL ABG pCO2 (35-45) mmHg ABG pO2 (83-108) mmHg ABG HCO3 (21-25) mmol/L ABG Total CO2 (19-24) mmol/L Chloride (98-107) mmol/L Creatinine (0.52-1.04) mg/dL Glucose (74-99) mg/dL POC Glucose (mg/dL) 145 H 128 H (75-99) mg/dL Hemoglobin A1c (4.0-6.0) % Calcium (8.4-10.2) mg/dL Ammonia (<30) umol/L Total Protein (6.3-8.2) g/dL Albumin (3.5-5.0) g/dL Hep C IgG Ab (Non-Reactive) 10/02/18 10/02/18 10/02/18 Range/Units 04:45 04:45 06:09 RBC (3.80-5.40) m/uL Hgb (11.4-16.0) gm/dL Hct (34.0-46.0) % RDW (11.5-15.5) % Plt Count (150-450) k/uL Neutrophils # (1.3-7.7) k/uL Lymphocytes # (1.0-4.8) k/uL ABG pCO2 (35-45) mmHg ABG pO2 (83-108) mmHg ABG HCO3 (21-25) mmol/L ABG Total CO2 (19-24) mmol/L Chloride 113 H (98-107) mmol/L Creatinine 0.44 L (0.52-1.04) mg/dL Glucose 174 H (74-99) mg/dL POC Glucose (mg/dL) 183 H (75-99) mg/dL Hemoglobin A1c (4.0-6.0) % Calcium 8.3 L (8.4-10.2) mg/dL Ammonia 43 H (<30) umol/L Total Protein 4.0 L (6.3-8.2) g/dL Albumin 2.2 L (3.5-5.0) g/dL Hep C IgG Ab (Non-Reactive) 10/02/18 Range/Units 08:07 RBC (3.80-5.40) m/uL Hgb (11.4-16.0) gm/dL Hct (34.0-46.0) % RDW (11.5-15.5) % Plt Count (150-450) k/uL Neutrophils # (1.3-7.7) k/uL Lymphocytes # (1.0-4.8) k/uL ABG pCO2 51 H (35-45) mmHg ABG pO2 71 L (83-108) mmHg ABG HCO3 29 H (21-25) mmol/L ABG Total CO2 30 H (19-24) mmol/L Chloride (98-107) mmol/L Creatinine (0.52-1.04) mg/dL Glucose (74-99) mg/dL POC Glucose (mg/dL) (75-99) mg/dL Hemoglobin A1c (4.0-6.0) % Calcium (8.4-10.2) mg/dL Ammonia (<30) umol/L Total Protein (6.3-8.2) g/dL Albumin (3.5-5.0) g/dL Hep C IgG Ab (Non-Reactive) Microbiology - Last 24 Hours (Table) 09/29/18 15:20 CSF Gram Stain - Preliminary Cerebral Spinal Fluid CSF Culture - Preliminary 09/28/18 17:39 Blood Culture - Preliminary Blood No Growth after 72 hours 09/30/18 20:02 Gram Stain - Preliminary Sputum Sputum Culture - Preliminary Assessment and Plan Assessment: 1. Altered mental status changes with increased agitation. Ammonia level 28. Head CT completed showing no acute process. Abdomen and pelvis CT completed showing urinary bladder distention excessive colonic stool. Urine and blood cultures ordered. Influenza ordered. Lumbar puncture was performed per critical care. Acyclovir has been added per infectious disease. Repeat head CT also completed showing no acute intracranial abnormality. At this time patient remains on mechanical ventilation andsedated. 2. Hypercapnia and hypoxic respiratory failure with known history of COPD. Ini tial pH on venous blood gas 7.44 pCO2 57 and HCO3 38. pulmonary services following 3. Leukocytosis. Initial white blood cell 19.5. Chest x-ray completed showing no new process. Patient started on Rocephin and vancomycin. Infectious disease consulted. Urine and blood cultures currently showing no growth 4. Hypokalemia. Potassium 2.8. Will replace per protocol. resolved. 5. Non-small cell lung cancer stage III adenocarcinoma. Per patient's family patient has not received treatment for multiple months. Per oncology service is patient received PD1 immunotherapy proximally 2 months ago. Possible MRI when patient is stable to rule out malignancy per oncology services 6. History of COPD. Patient currently on Solu-Medrol and DuoNeb breathing treatments 7. History of CVA 8. History of osteoarthritis 9. History of hyperlipidemia 10. History of fibromyalgia 11. History of depression 12. Ex-smoker. Patient's both proximally half pack per day for 30 years 13. Elevated liver enzymes. AST trending down to 37 ALT 55 and alkaline phosphatase 148 14. Chronic cholecystitis. Abdominal ultrasound completed showing sludge within the gallbladder. Pericholecystic fluid. Gallbladder wall is 0.25 cm, bile duct 0.4 cm. Surgical services were consulted. At this time no immediate surgical intervention DVT prophylaxis Lovenox. GI prophylaxis Protonix At This time patient remains in the intensive care unit. Patient is mechanically ventilated on station. Critical care and infectious disease is following I performed an examination of the patient and discussed their management with the Nurse Practitioner. I have reviewed the Nurse Practitioner's notes and agree with the documented findings and plan of care
[2018-10-02] MEDS: CLEVIDIPINE BUTYRATE 25 MG in EMPTY BAG 1 BAG IV SCH ×2 (11:19→20:55)
[2018-10-02] MEDS: fentaNYL (PF) 1,000 MCG in SODIUM CHLORIDE 0.9% 80 ML IV SCH ×2 (11:19→16:56)
[2018-10-02] MEDS: MIDAZOLAM HCL 50 MG in SODIUM CHLORIDE 0.9% 40 ML IV SCH ×3 (11:19→22:19)
[2018-10-02 11:37] VITALS: BMI 28.0
--- NOTE | 2018-10-02 11:41 | P.PN ---
Subjective Progress Note Date: 10/02/18 CHIEF COMPLAINT: Cholecystitis HISTORY OF PRESENT ILLNESS: Patient examined in the ICU. She remains intubated and sedated. Patient anxious and agitated this morning. Sedation unable to be weaned. Tolerating tube feeds at goal. WBC 10.2. Hemoglobin 10.4. AST 21. ALT 39. PHYSICAL EXAM: VITAL SIGNS: Reviewed. GENERAL: Well-developed in no acute distress. Sedated on ventilator. HEENT: ET tube intact. No sclera icterus. Extraocular movements grossly intact. Moist buccal mucosa. Head is atraumatic, normocephalic. ABDOMEN: Soft. Nondistended. Nontender. NEUROLOGIC: Sedated on ventilator. IMAGIN. Abdominal ultrasound: Sludge within the gallbladder. Pericholecystic fluid. Gallbladder wall 0.25 cm. Common bile duct 0.[address] abdomen and pelvis: No significant abnormality of gallbladder visualized ASSESSMENT: 1. Possible chronic cholecystitis PLAN: No immediate surgical intervention at this time. Patient may be re-evaluated on an outpatient basis once she is more stable and recovers from current acute illness. We will follow as needed. Please call with questions or concerns. Nurse practitioner note has been reviewed by physician. Signing provider agrees with the documented findings, assessment, and plan of care. Objective - Vital Signs Vital signs: Vital Signs Temp 98.1 F 10/02/18 08:00 Pulse 67 10/02/18 11:24 Resp 14 10/02/18 11:00 BP 104/62 10/02/18 11:00 Pulse Ox 98 10/02/18 11:00 Intake & Output 10/01/18 10/02/18 10/02/18 18:59 06:59 18:59 Intake Total 2176.405 1969.860 802.975 Output Total 310 380 285 Balance 4744.155 2765.860 517.975 Weight 63 kg 63 kg Intake: IV 1600 1200 500 Acyclovir Sodium 500 mg 200 In Sodium Chloride 0.9% 100 ml @ 100 mls/hr IVPB Q8HR [facility] Rx#:[id number] Normal Saline 1100 1200 500 Vancomycin 1,000 mg In 250 Sodium Chloride 0.9% 250 ml @ 125 mls/hr IVPB Q8H [facility] Rx#:[id number] cefTRIAXone 1 gm In 50 Sodium Chloride 0.9% 50 ml @ 100 mls/hr IVPB Q24HR [facility] Rx#:[id number] Intake, IV Titration 261.405 379.860 227.975 Amount Clevidipine Butyrate 25 0 mg In Empty Bag 1 bag @ 1 MG/HR 2 mls/hr IV .Q24H [facility] Rx#:[id number] Propofol 1,000 mg In 163.838 166.814 127.975 Empty Bag 1 bag @ Titrate IV .Q0M [facility] Rx#: [id number] Vancomycin 1,000 mg In 125 Sodium Chloride 0.9% 250 ml @ 125 mls/hr IVPB Q12H [facility] Rx#:[id number] fentaNYL (PF) 1,000 mcg 97.567 88.046 100.000 In Sodium Chloride 0.9% 80 ml @ 1 MCG/KG/HR 5.443 mls/hr IV .[id number] [facility] Rx#:[id number] Tube Feeding 225 300 75 Other 90 90 Output: Urine 310 380 285 Other: Voiding Method Indwelling Catheter Indwelling Catheter ABP, PAP, CO, CI - Last Documented Arterial Blood Pressure 137/63 - Labs CBC & Chem 7: 10/02/18 04:45 10/02/18 04:45 Labs: Abnormal Lab Results - Last 24 Hours (Table) 09/30/18 10/01/18 10/01/18 Range/Units 04:15 12:26 17:44 RBC (3.80-5.40) m/uL Hgb (11.4-16.0) gm/dL Hct (34.0-46.0) % RDW (11.5-15.5) % Plt Count (150-450) k/uL Neutrophils # (1.3-7.7) k/uL Lymphocytes # (1.0-4.8) k/uL ABG pCO2 (35-45) mmHg ABG pO2 (83-108) mmHg ABG HCO3 (21-25) mmol/L ABG Total CO2 (19-24) mmol/L Chloride (98-107) mmol/L Creatinine (0.52-1.04) mg/dL Glucose (74-99) mg/dL POC Glucose (mg/dL) 206 H 145 H (75-99) mg/dL Hemoglobin A1c 6.2 H (4.0-6.0) % Calcium (8.4-10.2) mg/dL Ammonia (<30) umol/L Total Protein (6.3-8.2) g/dL Albumin (3.5-5.0) g/dL 10/01/18 10/02/18 10/02/18 Range/Units 23:54 04:45 04:45 RBC 3.24 L (3.80-5.40) m/uL Hgb 10.4 L (11.4-16.0) gm/dL Hct 32.3 L (34.0-46.0) % RDW 16.0 H (11.5-15.5) % Plt Count 141 L (150-450) k/uL Neutrophils # 9.5 H (1.3-7.7) k/uL Lymphocytes # 0.2 L (1.0-4.8) k/uL ABG pCO2 (35-45) mmHg ABG pO2 (83-108) mmHg ABG HCO3 (21-25) mmol/L ABG Total CO2 (19-24) mmol/L Chloride 113 H (98-107) mmol/L Creatinine 0.44 L (0.52-1.04) mg/dL Glucose 174 H (74-99) mg/dL POC Glucose (mg/dL) 128 H (75-99) mg/dL Hemoglobin A1c (4.0-6.0) % Calcium 8.3 L (8.4-10.2) mg/dL Ammonia (<30) umol/L Total Protein 4.0 L (6.3-8.2) g/dL Albumin 2.2 L (3.5-5.0) g/dL 10/02/18 10/02/18 10/02/18 Range/Units 04:45 06:09 08:07 RBC (3.80-5.40) m/uL Hgb (11.4-16.0) gm/dL Hct (34.0-46.0) % RDW (11.5-15.5) % Plt Count (150-450) k/uL Neutrophils # (1.3-7.7) k/uL Lymphocytes # (1.0-4.8) k/uL ABG pCO2 51 H (35-45) mmHg ABG pO2 71 L (83-108) mmHg ABG HCO3 29 H (21-25) mmol/L ABG Total CO2 30 H (19-24) mmol/L Chloride (98-107) mmol/L Creatinine (0.52-1.04) mg/dL Glucose (74-99) mg/dL POC Glucose (mg/dL) 183 H (75-99) mg/dL Hemoglobin A1c (4.0-6.0) % Calcium (8.4-10.2) mg/dL Ammonia 43 H (<30) umol/L Total Protein (6.3-8.2) g/dL Albumin (3.5-5.0) g/dL Microbiology - Last 24 Hours (Table) 09/30/18 20:02 Gram Stain - Final Sputum Sputum Culture - Final Paige albicans 09/29/18 15:20 CSF Gram Stain - Preliminary Cerebral Spinal Fluid CSF Culture - Preliminary 09/28/18 17:39 Blood Culture - Preliminary Blood No Growth after 72 hours
[2018-10-02] MEDS: VANCOMYCIN 1,000 MG in SODIUM CHLORIDE 0.9% 250 ML IVPB SCH (12:01)
[2018-10-02 12:11] LABS: Glucose,Whole Blood 182 mg/dL (75-99)
[2018-10-02 12:32] LABS: VDRL, Qualitative CSF Nonreactive (Nonreactive)
--- NOTE | 2018-10-02 12:44 | P.PN ---
Subjective Progress Note Date: 10/02/18 Principal diagnosis: Acute mental status change, stage III non-small cell lung cancer This is a very pleasant 63-year-old female patient who follows with Dr. Benoit as her primary care physician. She has a history of CVA/TIA, fibromyalgia, gastroesophageal reflux disease, hyperlipidemia, hypothyroidism, chronic back pain, depression. She also has a history of chronic tobacco dependence, oxygen dependent chronic obstructive pulmonary disease with an FEV1 value of 56% of pre dicted, and non-small cell lung cancer stage III adenocarcinoma. She follows with Dr. Fan in our office. This was diagnosed by an FNA of a left upper lobe lesion by IR in November 2016. She had received concurrent chemoradiation with subsequent additional chemotherapy and then placed on maintenance mmunotherapy of Imfinzi back in December 2017. Her last PET scan in March 2018 revealed continued left upper lobe mass with irregular margins extending to the pleural surface, spiculated appearance but was stable compared to previous and October 2017. The SUV value was only 1.7. Subsequent computed tomography scan of the chest in July 2018 revealed a stable and slightly smaller spiculated mass of the left upper lobe measuring 2.5 x 2.4 cm versus 3.0 x 2.6 previous. No evidence of recurrence or metastasis. The patient was in the hospital back in early September 2018 and she was having ongoing issues with nausea vomiting profound weakness and fatigue. She decided to stop taking the immunotherapy. She had been treated for his COPD exacerbation 08/22/[address] in our office by Dr. Fan where she received steroids and Bactrim. She did improve for the first week or so. She presented to the emergency room yesterday with complaints of increasing shortness of breath cough and congestion. She did have some lower extremity edema. She was still quite weak and fatigued. ome dyspnea on exertion. The patient was discharged home on 09/17/2018 as the patient shortness of breath improved and the patient recovered from her acute COPD exacerbation and she was discharged home on her usual routine medications which included also morphine sulfate 30 mg by mouth twice a day Percocet 04/11/2025 every 6 hours and a when necessary basis. In terms of her lung medication she was maintained on a combi nation of Symbicort and Incruse. She is also on Synthroid 25 g by mouth daily. She was given Lasix to be taken on an as needed basis.The patient came in yesterday to the burst department 3 day history of altered mental status. According to the family the patient was acting weird. She was acting unusual and she was confused. She was also very weak and she was having episodes of fall. I do see a bruise over her forehead. The family tells that she did not have any active had trauma. No seizure activity. No neck stiffness. No documented fever. She was thrashing significantly yesterday. A CAT scan of the head was done that showed no acute process. CAT scan of abdomen and pelvis was done that showed urinary bladder distention along with extensive colonic stool. The patient's ammonia level was at 28. Urine and blood cultures were ordered. The influenza screen was negative. The that was at 19.7 the patient was given a dose of 1 g of Rocephin and she was admitted to the oncology unit. Overnight the patient continued to be the same. Earlier this morning I was informed about this patient by the nurse practitioners and I was able to see it on the floor and I asked her to be transferred to the intensive care unit. She did not have any neck stiffness. No fever. She was at times morning. Other times she would open up her eyes and follows some simple commands. I was told that this is an improvement in her condition compared to yesterday. She was able to follow some simple commands however she has not been consistent in following orders. His speech is minimal and the patient may safely worse. She denies being in pain. Urine toxin was ordered. She was given a dose of Narcan here in the ICU without much improvement. Blood gases showed a pH of 7.3 with a pCO2 of 47 and pO2 of 136 and there is no evidence of any CO2 narcosis. Her white cell count is down to 14.8. The rest of the blood work is all within normal limits with a exception of some mild elevation of the LFTs with an AST of 65, ALT of 79 and alkaline phosphatase of 219. Troponins of 0.04. Serum albumin is at 3.8. The coagulation profile is within normal. The chest x-ray is not showing any acute process. Today's evaluation of 09/30/2018 I'm seeing this patient for a follow-up. E vents from yesterday were noted. The patient came in to the ICU. She was extremely agitated and restless, having tachypnea tachycardia and blood pressure was up. She received several doses of Haldol without any improvement. She continued to be altered and tomorrow mentation. At that point, the patient was given propofol and subsequently she was intubated and placed on a mechanical ventilator. Her sedation requirements stayed quite high throughout the night. The patient was receiving maximum dose of propofol which is currently running at 50 g per KG per minute. Fentanyl had to be also added for sedation and fentanyl is at high as 160 g KG per hour. She is much well rested for now. She is very symptoms with the mechanical ventilator. She is set at a tidal volume of 400 and FiO2 of 40% and PEEP of 5 and a rate of 14. Blood gases from today showed a pH of 7. raphae with a pCO2 of 44 and pO2 of 195. This was on FiO2 of 50% and subsequently she was weaned down to 40%. His x-ray from today shows this small new left-sided pleural effusion. Patient was reevaluated today on 10/01/2018, patient remains on mechanical ventilation, she is on assist control rate of 14 tidal volume of 400 FiO2 of 40% and PEEP of 5. Remains on propofol drip, she is also on fentanyl drip, apparent ly patient was extremely agitated yesterday, and she required a significant amount of sedation. Her propofol is at 50 mcg/kg/m, and her fentanyl is 160 mcg/h. Seems to be resting while on mechanical ventilation. Sedated, and difficult to arouse. Hence I recommended cutting down the fentanyl drip to half of the dose she is presently on, and we need to assess her mental status and decide whether the patient could even be weaned at all. She underwent lumbar puncture by Dr. Robert, she remains on vancomycin and Rocephin, empirically, and she is also on acyclovir for HSV COMPLIANCE SPECIALIST infection. PCR for HSV is pending. Repeat CT of the brain has been unremarkable. No evidence of any stroke. Labs were all reviewed today, ABG showed a pO2 of 145 pCO2 of 49 pH of 7.38. Electrolytes and renal profile are normal. CBC is relatively unremarkable, hemoglobin is 10.2. Chest x-ray from yesterday showed new small left pleural effusion minimal atelectasis Reevaluated today on 10/02/2018, remains on the same ventilator settings, remains on mechanical ventilation, still requiring relatively high dose of fentanyl, and she is on 50 mcg/kg/m of propofol. Patient had a slight decrease in her sedatio n, and she became extremely agitated, but was not arousable, remained obtunded and could not actually assess fully her mental status. Hence I have decided to switch propofol to Versed, and I will try to titrate the fentanyl down to a lesser dose if possible. Patient continues to have diffuse rhonchi and wheezes and she remains on bronchodilators and steroids. She was seen by infectious disease, and her PCR for HSV was negative, acyclovir was discontinued. ABG today showed a pO2 of 71 pCO2 of 51 pH of 7.36. Electrolytes are relatively normal renal profile is normal. CBC is relatively unremarkable. Hemoglobin is 10.4. Chest x-ray continues to show trace of left pleural effusion and blunting of the costophrenic angle, otherwise it is basically unremarkable. Lines and tubes are noted to be in the proper position. Again I could not assess mental status today because of extreme agitation once the dose of the fentanyl or propofol is cut down a bit. Objective - Vital Signs Vital signs: Vital Signs Temp 98.1 F 10/02/18 08:00 Pulse 67 10/02/18 11:24 Resp 14 10/02/18 11:00 BP 104/62 10/02/18 11:00 Pulse Ox 98 10/02/18 11:00 Intake & Output 10/01/18 10/02/18 10/02/18 18:59 06:59 18:59 Intake Total 2176.405 1969.860 821.532 Output Total 310 380 285 Balance 8998.641 6419.860 536.532 Weight 63 kg 63 kg Intake: IV 1600 1200 500 Acyclovir Sodium 500 mg 200 In Sodium Chloride 0.9% 100 ml @ 100 mls/hr IVPB Q8HR [facility] Rx#:[id number] Normal Saline 1100 1200 500 Vancomycin 1,000 mg In 250 Sodium Chloride 0.9% 250 ml @ 125 mls/hr IVPB Q8H [facility] Rx#:[id number] cefTRIAXone 1 gm In 50 Sodium Chloride 0.9% 50 ml @ 100 mls/hr IVPB Q24HR [facility] Rx#:[id number] Intake, IV Titration 261.405 379.860 246.532 Amount Clevidipine Butyrate 25 2.933 mg In Empty Bag 1 bag @ 1 MG/HR 2 mls/hr IV .Q24H [facility] Rx#:[id number] Propofol 1,000 mg In 163.838 166.814 143.599 Empty Bag 1 bag @ Titrate IV .Q0M [facility] Rx#: [id number] Vancomycin 1,000 mg In 125 Sodium Chloride 0.9% 250 ml @ 125 mls/hr IVPB Q12H [facility] Rx#:[id number] fentaNYL (PF) 1,000 mcg 97.567 88.046 100.000 In Sodium Chloride 0.9% 80 ml @ 1 MCG/KG/HR 5.443 mls/hr IV .[id number] [facility] Rx#:[id number] Tube Feeding 225 300 75 Other 90 90 Output: Urine 310 380 285 Other: Voiding Method Indwelling Catheter Indwelling Catheter ABP, PAP, CO, CI - Last Documented Arterial Blood Pressure 137/63 - Exam Physical Exam: Revealed a 63-year-old female, comfortable, on mechanical ventilation, sedated, on propofol and on phenytoin. Orogastric tube and orotracheal tubes are noted to be intact Head: Atraumatic, normocephalic. HEENT:[Neck is supple.] [No neck masses.] [No thyromegaly.] [No JVD.] PERRLA, EOMI, no icterus. Endotracheal tube and oral gastric tube are intact Chest: [Diminished breath sounds at the bases, no crackles, no rhonchi no wheezes. Symmetrical chest expansion is noted no chest wall tenderness..] Cardiac Exam: [Normal S1 and S2, no S3 gallop, no murmur.] Abdomen: [Soft, nontender, no megaly, no rebound, no guarding, normal bowel sounds.] Extremities: [No clubbing, no edema, no cyanosis.] Good pulses bilaterally. Neurological Exam: Cannot be assessed, fully sedated and on propofol as well as fentanyl. Psychiatric: Could not be assessed. Remains on propofol and on fentanyl pain Lymphatics: No lymphadenopathy. Skin: No rashes. - Labs CBC & Chem 7: 10/02/18 04:45 10/02/18 04:45 Labs: Abnormal Lab Results - Last 24 Hours (Table) 10/01/18 10/01/18 10/01/18 Range/Units 12:26 17:44 23:54 RBC (3.80-5.40) m/uL Hgb (11.4-16.0) gm/dL Hct (34.0-46.0) % RDW (11.5-15.5) % Plt Count (150-450) k/uL Neutrophils # (1.3-7.7) k/uL Lymphocytes # (1.0-4.8) k/uL ABG pCO2 (35-45) mmHg ABG pO2 (83-108) mmHg ABG HCO3 (21-25) mmol/L ABG Total CO2 (19-24) mmol/L Chloride (98-107) mmol/L Creatinine (0.52-1.04) mg/dL Glucose (74-99) mg/dL POC Glucose (mg/dL) 206 H 145 H 128 H (75-99) mg/dL Calcium (8.4-10.2) mg/dL Ammonia (<30) umol/L Total Protein (6.3-8.2) g/dL Albumin (3.5-5.0) g/dL 10/02/18 10/02/18 10/02/18 Range/Units 04:45 04:45 04:45 RBC 3.24 L (3.80-5.40) m/uL Hgb 10.4 L (11.4-16.0) gm/dL Hct 32.3 L (34.0-46.0) % RDW 16.0 H (11.5-15.5) % Plt Count 141 L (150-450) k/uL Neutrophils # 9.5 H (1.3-7.7) k/uL Lymphocytes # 0.2 L (1.0-4.8) k/uL ABG pCO2 (35-45) mmHg ABG pO2 (83-108) mmHg ABG HCO3 (21-25) mmol/L ABG Total CO2 (19-24) mmol/L Chloride 113 H (98-107) mmol/L Creatinine 0.44 L (0.52-1.04) mg/dL Glucose 174 H (74-99) mg/dL POC Glucose (mg/dL) (75-99) mg/dL Calcium 8.3 L (8.4-10.2) mg/dL Ammonia 43 H (<30) umol/L Total Protein 4.0 L (6.3-8.2) g/dL Albumin 2.2 L (3.5-5.0) g/dL 10/02/18 10/02/18 10/02/18 Range/Units 06:09 08:07 11:59 RBC (3.80-5.40) m/uL Hgb (11.4-16.0) gm/dL Hct (34.0-46.0) % RDW (11.5-15.5) % Plt Count (150-450) k/uL Neutrophils # (1.3-7.7) k/uL Lymphocytes # (1.0-4.8) k/uL ABG pCO2 51 H (35-45) mmHg ABG pO2 71 L (83-108) mmHg ABG HCO3 29 H (21-25) mmol/L ABG Total CO2 30 H (19-24) mmol/L Chloride (98-107) mmol/L Creatinine (0.52-1.04) mg/dL Glucose (74-99) mg/dL POC Glucose (mg/dL) 183 H 182 H (75-99) mg/dL Calcium (8.4-10.2) mg/dL Ammonia (<30) umol/L Total Protein (6.3-8.2) g/dL Albumin (3.5-5.0) g/dL Microbiology - Last 24 Hours (Table) 09/30/18 20:02 Gram Stain - Final Sputum Sputum Culture - Final Paige albicans 09/29/18 15:20 CSF Gram Stain - Preliminary Cerebral Spinal Fluid CSF Culture - Preliminary 09/28/18 17:39 Blood Culture - Preliminary Blood No Growth after 72 hours Assessment and Plan Assessment: Impression: 1 acute mental status change, acute encephalopathy exact etiology is not clear, viral encephalitis was ruled out based on negative PCR on the spinal fluid. Hence acyclovir was discontinued 2 extreme agitation requiring significant amount of sedation leading to int ubation and mechanical ventilation. Hence I will recommend switching propofol to Versed, and will continue to work on cutting the dose of fentanyl slowly to a lower dose if possible. 3 stage III non-small cell lung cancer status post chemo and radiation therapy and she is receiving immunotherapy on outpatient basis. 4 history of fibromyalgia 5 chronic back pain 6 severe COPD 7 previous CVA/TIA 8 history of depression Recommendation: Continue present ventilatory support, continue sedation but will switch propofol to Versed, titrate the dose of fentanyl down hopefully to less than 50 g per hour. Continue antibiotics, bronchodilators, steroids, continue all supportive care measures, nutritional support/enteral feeding, continue GI and DVT prophylaxis. Continue Rocephin and vancomycin, patient is not ready for any plans to wean at this point, she may actually eventually require t racheostomy. We'll discuss this with her family. Overall long-term prognosis is again poor and guarded. Not to mention the patient has advanced stage of non-small cell lung cancer. And she probably has severe underlying COPD. We'll continue to follow in the ICU. Critical care time is 35 minutes Time with Patient: Greater than 30
[2018-10-02] MEDS: SODIUM CHLORIDE 0.9% 1,000 ML IV SCH ×2 (17:27→23:23)
[2018-10-02 18:20] LABS: Glucose,Whole Blood 169 mg/dL (75-99)
[2018-10-02] MEDS: NOREPINEPHRINE 4 MG in SODIUM CHLORIDE 0.9% 250 ML IV SCH (20:41)
[2018-10-02 22:21] VITALS: BP 104/62
--- NOTE | 2018-10-02 22:29 | PN ---
PROGRESS NOTE DATE OF SERVICE: 10/02/2018 REASON FOR FOLLOWUP: Leukocytosis/infection. INTERVAL HISTORY: The patient is currently afebrile. The patient is hemodynamically stable, not on any pressor support. The patient's FiO2 is currently stable at 35%. She has been tolerating her tube feeds. No diarrhea has been noticed by the nursing staff. She looked to be slightly agitated and sedation has been adjusted. PHYSICAL EXAMINATION: Blood pressure is 151/68 with a pulse of 80, temperature 98. She is 96% on 35% FiO2. General description is an elderly female lying in bed in no distress. RESPIRATORY SYSTEM: Unlabored breathing with decreased breath sounds at the base. No wheeze. HEART: S1, S2. Regular rate and rhythm. ABDOMEN: Soft. No tenderness. LABS: Hemoglobin 10.4, white count 10.2 with a BUN of 17, creatinine 0.44. Sputum with Paige albicans. Blood culture has been negative. CSF culture negative. Urine is negative. DIAGNOSTIC IMPRESSION AND PLAN: Patient with leukocytosis which is likely multifactorial in this patient with possible component of chronic cholecystitis patient did have a chest x-ray completed. It shows trace left pleural effusion. Sputum with Paige albicans, likely colonizer, as it did not grow any resistant pathogen. Recommend to keep the patient on the Rocephin; however, discontinue the vancomycin to decrease the risk of nephrotoxicity and monitor clinical course closely. Continue with supportive care. MMODL / REN: [id number] /
[2018-10-02 23:37] LABS: Glucose,Whole Blood 162 mg/dL (75-99)
[2018-10-03] MEDS: HYDROmorphone 1 MG/ML 1 ML SYRINGE IVP PRN ×5 (00:38→19:49)
[2018-10-03] MEDS: IPRATROPIUM-ALBUTEROL 3 ML NEB INHALATION SCH ×4 (03:23→15:36)
[2018-10-03] MEDS: fentaNYL (PF) 1,000 MCG in SODIUM CHLORIDE 0.9% 80 ML IV SCH (03:33)
[2018-10-03 04:45] LABS: ALT 37 U/L (9-52); AST 27 U/L (14-36); Albumin 2.4 g/dL (3.5-5.0); Alkaline Phosphatase 122 U/L (38-126); Anion Gap 1 mmol/L; Blood Urea Nitrogen 14 mg/dL (7-17); Calcium 8.1 mg/dL (8.4-10.2); Carbon Dioxide 32 mmol/L (22-30); Chloride 106 mmol/L (98-107); Glucose 148 mg/dL (74-99); Magnesium 2.1 mg/dL (1.6-2.3); Sodium 139 mmol/L (137-145); Total Bilirubin 0.4 mg/dL (0.2-1.3); Total Protein 4.5 g/dL (6.3-8.2)
[2018-10-03] MEDS: CLEVIDIPINE BUTYRATE 25 MG in EMPTY BAG 1 BAG IV SCH ×4 (04:46→19:44)
[2018-10-03 05:08] LABS: Basophils % (A) 0 %; Eosinophils % (A) 0 %; HGB 10.8 gm/dL (11.4-16.0); Lymphocytes # (A) 0.2 k/uL (1.0-4.8); Lymphocytes % (A) 1 %; MCH 30.7 pg (25.0-35.0); MCHC 31.7 g/dL (31.0-37.0); Mean Platelet Volume 7.9; Monocytes # (A) 0.3 k/uL (0-1.0); Monocytes % (A) 3 %; Neutrophils # (A) 9.6 k/uL (1.3-7.7); Neutrophils % (A) 95 %; Platelet Count 151 k/uL (150-450); RBC 3.51 m/uL (3.80-5.40); RDW 15.5 % (11.5-15.5); WBC 10.1 k/uL (3.8-10.6)
[2018-10-03] MEDS: INSULIN ASPART (NovoLOG) 100 UNIT/ML VIAL SQ SCH ×3 (05:56→18:24)
[2018-10-03] MEDS: POTASSIUM BICARBONATE/CIT AC 20 MEQ TABLET.EFF NG-TUBE SCH ×5 (05:56→12:08)
[2018-10-03] MEDS: methylPREDNISolone SOD SUCCI 125 MG/2 ML VIAL IV SCH ×3 (05:58→18:24)
[2018-10-03 06:01] LABS: Glucose,Whole Blood 145 mg/dL (75-99)
[2018-10-03] MEDS: MIDAZOLAM HCL 50 MG in SODIUM CHLORIDE 0.9% 40 ML IV SCH ×3 (07:51→18:25)
[2018-10-03] MEDS: SODIUM CHLORIDE 0.9% 1,000 ML IV SCH ×2 (07:55→19:45)
[2018-10-03] MEDS: MORPHINE SULFATE ER 30 MG TABLET PO SCH (08:02)
[2018-10-03] MEDS: PANTOPRAZOLE 40 MG/10 ML VIAL IVP SCH (08:02)
[2018-10-03] MEDS: CHLORHEXIDINE GLUCONATE 15 ML CUP MUCOUS MEM SCH (08:02)
[2018-10-03] MEDS: ENOXAPARIN 40 MG/0.4 ML SYRINGE SQ SCH (08:02)
[2018-10-03] MEDS: LEVOTHYROXINE IVP 100 MCG/5 ML VIAL IV SCH (08:02)
[2018-10-03 08:29] LABS: ABG Base Excess 11.5 mmol/L; ABG HCO3 35 mmol/L (21-25); ABG PCO2 46 mmHg (35-45); ABG PH 7.49 (7.35-7.45); ABG PO2 88 mmHg (83-108); ABG TCO2 36 mmol/L (19-24)
--- NOTE | 2018-10-03 08:44 | XR ---
EXAMINATION TYPE: XR chest 1V portable DATE OF EXAM: 10/03/2018 COMPARISON: 10/02/2018 HISTORY: Ventilatory dependent respiratory failure TECHNIQUE: Single frontal view of the chest is obtained. FINDINGS: There is a stable trace left pleural effusion with new right basilar opacity and persisten t retrocardiac opacity. Remainder the lungs are clear. Cardiomediastinal silhouette is partially obsc ured but appears overall stable. Left-sided subclavian approach central venous catheter, enteric tube and endotracheal tube appear satisfactorily placed and similar to the prior. No sizable pneumothorax . IMPRESSION: Stable trace left pleural effusion and retrocardiac airspace disease with new right basi lar airspace disease that may represent atelectasis or developing pneumonia.
--- NOTE | 2018-10-03 10:52 | P.PN ---
Subjective Progress Note Date: 10/03/18 Principal diagnosis: Acute mental status change, stage III non-small cell lung cancer This is a very pleasant 63-year-old female patient who follows with Dr. Benoit as her primary care physician. She has a history of CVA/TIA, fibromyalgia, gastroesophageal reflux disease, hyperlipidemia, hypothyroidism, chronic back pain, depression. She also has a history of chronic tobacco dependence, oxygen dependent chronic obstructive pulmonary disease with an FEV1 value of 56% of pre dicted, and non-small cell lung cancer stage III adenocarcinoma. She follows with Dr. Fan in our office. This was diagnosed by an FNA of a left upper lobe lesion by IR in November 2016. She had received concurrent chemoradiation with subsequent additional chemotherapy and then placed on maintenance mmunotherapy of Imfinzi back in December 2017. Her last PET scan in March 2018 revealed continued left upper lobe mass with irregular margins extending to the pleural surface, spiculated appearance but was stable compared to previous and October 2017. The SUV value was only 1.7. Subsequent computed tomography scan of the chest in July 2018 revealed a stable and slightly smaller spiculated mass of the left upper lobe measuring 2.5 x 2.4 cm versus 3.0 x 2.6 previous. No evidence of recurrence or metastasis. The patient was in the hospital back in early September 2018 and she was having ongoing issues with nausea vomiting profound weakness and fatigue. She decided to stop taking the immunotherapy. She had been treated for his COPD exacerbation 08/22/[address] in our office by Dr. Fan where she received steroids and Bactrim. She did improve for the first week or so. She presented to the emergency room yesterday with complaints of increasing shortness of breath cough and congestion. She did have some lower extremity edema. She was still quite weak and fatigued. ome dyspnea on exertion. The patient was discharged home on 09/17/2018 as the patient shortness of breath improved and the patient recovered from her acute COPD exacerbation and she was discharged home on her usual routine medications which included also morphine sulfate 30 mg by mouth twice a day Percocet 04/11/2025 every 6 hours and a when necessary basis. In terms of her lung medication she was maintained on a combi nation of Symbicort and Incruse. She is also on Synthroid 25 g by mouth daily. She was given Lasix to be taken on an as needed basis.The patient came in yesterday to the burst department 3 day history of altered mental status. According to the family the patient was acting weird. She was acting unusual and she was confused. She was also very weak and she was having episodes of fall. I do see a bruise over her forehead. The family tells that she did not have any active had trauma. No seizure activity. No neck stiffness. No documented fever. She was thrashing significantly yesterday. A CAT scan of the head was done that showed no acute process. CAT scan of abdomen and pelvis was done that showed urinary bladder distention along with extensive colonic stool. The patient's ammonia level was at 28. Urine and blood cultures were ordered. The influenza screen was negative. The that was at 19.7 the patient was given a dose of 1 g of Rocephin and she was admitted to the oncology unit. Overnight the patient continued to be the same. Earlier this morning I was informed about this patient by the nurse practitioners and I was able to see it on the floor and I asked her to be transferred to the intensive care unit. She did not have any neck stiffness. No fever. She was at times morning. Other times she would open up her eyes and follows some simple commands. I was told that this is an improvement in her condition compared to yesterday. She was able to follow some simple commands however she has not been consistent in following orders. His speech is minimal and the patient may safely worse. She denies being in pain. Urine toxin was ordered. She was given a dose of Narcan here in the ICU without much improvement. Blood gases showed a pH of 7.3 with a pCO2 of 47 and pO2 of 136 and there is no evidence of any CO2 narcosis. Her white cell count is down to 14.8. The rest of the blood work is all within normal limits with a exception of some mild elevation of the LFTs with an AST of 65, ALT of 79 and alkaline phosphatase of 219. Troponins of 0.04. Serum albumin is at 3.8. The coagulation profile is within normal. The chest x-ray is not showing any acute process. Today's evaluation of 09/30/2018 I'm seeing this patient for a follow-up. E vents from yesterday were noted. The patient came in to the ICU. She was extremely agitated and restless, having tachypnea tachycardia and blood pressure was up. She received several doses of Haldol without any improvement. She continued to be altered and tomorrow mentation. At that point, the patient was given propofol and subsequently she was intubated and placed on a mechanical ventilator. Her sedation requirements stayed quite high throughout the night. The patient was receiving maximum dose of propofol which is currently running at 50 g per KG per minute. Fentanyl had to be also added for sedation and fentanyl is at high as 160 g KG per hour. She is much well rested for now. She is very symptoms with the mechanical ventilator. She is set at a tidal volume of 400 and FiO2 of 40% and PEEP of 5 and a rate of 14. Blood gases from today showed a pH of 7. raphae with a pCO2 of 44 and pO2 of 195. This was on FiO2 of 50% and subsequently she was weaned down to 40%. His x-ray from today shows this small new left-sided pleural effusion. Patient was reevaluated today on 10/01/2018, patient remains on mechanical ventilation, she is on assist control rate of 14 tidal volume of 400 FiO2 of 40% and PEEP of 5. Remains on propofol drip, she is also on fentanyl drip, apparent ly patient was extremely agitated yesterday, and she required a significant amount of sedation. Her propofol is at 50 mcg/kg/m, and her fentanyl is 160 mcg/h. Seems to be resting while on mechanical ventilation. Sedated, and difficult to arouse. Hence I recommended cutting down the fentanyl drip to half of the dose she is presently on, and we need to assess her mental status and decide whether the patient could even be weaned at all. She underwent lumbar puncture by Dr. 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 PCR for HSV is pending. Repeat CT of the brain has been unremarkable. No evidence of any stroke. Labs were all reviewed today, ABG showed a pO2 of 145 pCO2 of 49 pH of 7.38. Electrolytes and renal profile are normal. CBC is relatively unremarkable, hemoglobin is 10.2. Chest x-ray from yesterday showed new small left pleural effusion minimal atelectasis Reevaluated today on 10/02/2018, remains on the same ventilator settings, remains on mechanical ventilation, still requiring relatively high dose of fentanyl, and she is on 50 mcg/kg/m of propofol. Patient had a slight decrease in her sedatio n, and she became extremely agitated, but was not arousable, remained obtunded and could not actually assess fully her mental status. Hence I have decided to switch propofol to Versed, and I will try to titrate the fentanyl down to a lesser dose if possible. Patient continues to have diffuse rhonchi and wheezes and she remains on bronchodilators and steroids. She was seen by infectious disease, and her PCR for HSV was negative, acyclovir was discontinued. ABG today showed a pO2 of 71 pCO2 of 51 pH of 7.36. Electrolytes are relatively normal renal profile is normal. CBC is relatively unremarkable. Hemoglobin is 10.4. Chest x-ray continues to show trace of left pleural effusion and blunting of the costophrenic angle, otherwise it is basically unremarkable. Lines and tubes are noted to be in the proper position. Again I could not assess mental status today because of extreme agitation once the dose of the fentanyl or propofol is cut down a bit. Patient was reevaluated today on 10/03/2018, remains on mechanical ventilation, same ventilator settings, unchanged. ABG showed a pO2 of 88 pCO2 of 46 pH of 7.49. Rest of the labs were unremarkable except for low potassium being cor rected as per protocol. Patient is off propofol, she is off fentanyl, and now she is on 10 mg per hour of Versed. I have instructed the nurses to cut down the Versed, and I would like to awaken the patient and assess her mental status if possible. Patient does have rhonchi and wheezes on physical examination, her chest x-ray showed stable minimal left pleural effusion, and retro-cardiac disease, possible new right lower lobe atelectasis or pneumonia. Patient remains on empiric antibiotics. Objective - Vital Signs Vital signs: Vital Signs Temp 98.5 F 10/03/18 08:00 Pulse 105 H 10/03/18 10:00 Resp 19 10/03/18 10:00 BP 104/62 10/02/18 22:00 Pulse Ox 98 10/03/18 10:00 Intake & Output 10/02/18 10/03/18 10/03/18 18:59 06:59 18:59 Intake Total 2266.792 1991.687 550.647 Output Total 850 2355 475 Balance 1416.792 -363.313 75.647 Weight 63 kg 65.8 kg Intake: IV 1300 1300 400 Normal Saline 1200 1300 300 cefTRIAXone 1 gm In 100 100 Sodium Chloride 0.9% 50 ml @ 100 mls/hr IVPB Q24HR [facility] Rx#:[id number] Intake, IV Titration 631.792 251.687 70.647 Amount Clevidipine Butyrate 25 4.666 64.834 24.367 mg In Empty Bag 1 bag @ 1 MG/HR 2 mls/hr IV .Q24H [facility] Rx#:[id number] Midazolam HCl 50 mg In 30.95 92.05 33.350 Sodium Chloride 0.9% 40 ml @ 5 MG/HR 5 mls/hr IV .Q10H [facility] Rx#:[id number] Propofol 1,000 mg In 154.915 Empty Bag 1 bag @ Titrate IV .Q0M [facility] Rx#: [id number] Vancomycin 1,000 mg In 250 Sodium Chloride 0.9% 250 ml @ 125 mls/hr IVPB Q12H [facility] Rx#:[id number] fentaNYL (PF) 1,000 mcg 191.261 94.803 12.93 In Sodium Chloride 0.9% 80 ml @ 1 MCG/KG/HR 5.443 mls/hr IV .[id number] [facility] Rx#:[id number] Tube Feeding 275 350 50 Other 60 90 30 Output: Urine 850 2355 475 Other: Voiding Method Indwelling Catheter Indwelling Catheter Indwelling Catheter ABP, PAP, CO, CI - Last Documented Arterial Blood Pressure 175/81 - Exam Physical Exam: Revealed a 63-year-old female, on mechanical ventilation, presently on Versed, off propofol and fentanyl. Still fairly sedated. Head: Atraumatic, normocephalic. HEENT:[Neck is supple.] [No neck masses.] [No thyromegaly.] [No JVD.] PERRLA, EOMI, no icterus. Endotracheal tube and oral gastric tube are intact Chest: [Diminished breath sounds at the bases, rhonchi and wheezes noted bilaterally. Symmetrical chest expansion. Cardiac Exam: [Normal S1 and S2, no S3 gallop, no murmur.] Abdomen: [Soft, nontender, no megaly, no rebound, no guarding, normal bowel sounds.] Extremities: [No clubbing, no edema, no cyanosis.] Good pulses bilaterally. Neurological Exam: Cannot be assessed, fully sedated and on propofol as well as fentanyl. Psychiatric: Could not be assessed. Remains on propofol and on fentanyl pain Lymphatics: No lymphadenopathy. Skin: No rashes. - Labs CBC & Chem 7: 10/03/18 04:21 10/03/18 09:00 Labs: Abnormal Lab Results - Last 24 Hours (Table) 10/02/18 10/02/18 10/02/18 Range/Units 11:59 18:08 23:26 RBC (3.80-5.40) m/uL Hgb (11.4-16.0) gm/dL Neutrophils # (1.3-7.7) k/uL Lymphocytes # (1.0-4.8) k/uL ABG pH (7.35-7.45) ABG pCO2 (35-45) mmHg ABG HCO3 (21-25) mmol/L ABG Total CO2 (19-24) mmol/L ABG O2 Saturation (94-97) % Potassium (3.5-5.1) mmol/L Carbon Dioxide (22-30) mmol/L Creatinine (0.52-1.04) mg/dL Glucose (74-99) mg/dL POC Glucose (mg/dL) 182 H 169 H 162 H (75-99) mg/dL Calcium (8.4-10.2) mg/dL Ammonia (<30) umol/L Total Protein (6.3-8.2) g/dL Albumin (3.5-5.0) g/dL 10/03/18 10/03/18 10/03/18 Range/Units 04:21 04:21 04:21 RBC 3.51 L (3.80-5.40) m/uL Hgb 10.8 L (11.4-16.0) gm/dL Neutrophils # 9.6 H (1.3-7.7) k/uL Lymphocytes # 0.2 L (1.0-4.8) k/uL ABG pH (7.35-7.45) ABG pCO2 (35-45) mmHg ABG HCO3 (21-25) mmol/L ABG Total CO2 (19-24) mmol/L ABG O2 Saturation (94-97) % Potassium 3.0 L (3.5-5.1) mmol/L Carbon Dioxide 32 H (22-30) mmol/L Creatinine 0.34 L (0.52-1.04) mg/dL Glucose 148 H (74-99) mg/dL POC Glucose (mg/dL) (75-99) mg/dL Calcium 8.1 L (8.4-10.2) mg/dL Ammonia 34 H (<30) umol/L Total Protein 4.5 L (6.3-8.2) g/dL Albumin 2.4 L (3.5-5.0) g/dL 10/03/18 10/03/18 10/03/18 Range/Units 05:49 08:24 09:00 RBC (3.80-5.40) m/uL Hgb (11.4-16.0) gm/dL Neutrophils # (1.3-7.7) k/uL Lymphocytes # (1.0-4.8) k/uL ABG pH 7.49 H (7.35-7.45) ABG pCO2 46 H (35-45) mmHg ABG HCO3 35 H (21-25) mmol/L ABG Total CO2 36 H (19-24) mmol/L ABG O2 Saturation 98.0 H (94-97) % Potassium 3.4 L (3.5-5.1) mmol/L Carbon Dioxide (22-30) mmol/L Creatinine (0.52-1.04) mg/dL Glucose (74-99) mg/dL POC Glucose (mg/dL) 145 H (75-99) mg/dL Calcium (8.4-10.2) mg/dL Ammonia (<30) umol/L Total Protein (6.3-8.2) g/dL Albumin (3.5-5.0) g/dL Microbiology - Last 24 Hours (Table) 09/29/18 15:20 CSF Gram Stain - Preliminary Cerebral Spinal Fluid CSF Culture - Preliminary 09/28/18 17:39 Blood Culture - Preliminary Blood No Growth after 96 hours 09/30/18 20:02 Gram Stain - Final Sputum Sputum Culture - Final Paige albicans Assessment and Plan Assessment: Impression: 1 acute mental status change, acute encephalopathy exact etiology is not clear, viral encephalitis was ruled out based on negative PCR on the spinal fluid. Hence acyclovir was discontinued 2 extreme agitation requiring significant amount of sedation leading to intubation and mechanical ventilation. Presently on Versed, off propofol and fentanyl. 3 stage III non-small cell lung cancer status post chemo and radiation therapy and she is receiving immunotherapy on outpatient basis. 4 history of fibromyalgia 5 chronic back pain 6 severe COPD 7 previous CVA/TIA 8 history of depression Recommendation: Continue ventilatory support, nutritional support via enteral feeding, titrate to Versed down and assess mental status if possible today, keep the patient of fentanyl for now, continue bronchodilators, steroids, antibiot ics, continue GI and DVT prophylaxis, continue antibiotics, will hopefully be able to addressed mental status once the patient is down on a lower dose of Versed, she is definitely not ready to be weaned, but I would like to have sedation interruption for assessment of mental status. I discussed her condition with family members at bedside, updated them on her condition, patient again may eventually require tracheostomy and PEG tube placement, but this is yet to be addressed early next week if the patient does not show much improvement. Patient remains critically ill. And critical care time is 35 minutes Time with Patient: Greater than 30
[2018-10-03] MEDS ORDERED: POTASSIUM CHLORIDE ER 20 MEQ TAB.ER PO SCH (11:00)
[2018-10-03 12:00] LABS: Glucose,Whole Blood 153 mg/dL (75-99)
[2018-10-03 12:09] VITALS: TEMP 99.3
--- NOTE | 2018-10-03 12:55 | P.PN ---
Subjective Progress Note Date: 10/03/18 This is a 63-year-old female patient of Dr. mariano. Patient presented to the hospital with complaints of altered mental status changes. She per patient's sister patient started having altered mental status possibly 2 days ago. Patient has a known past medical history of stage III lung cancer. Per patient patient has not received any recent treatment for cancer. Past medical history includes COPD, CVA, fibromyalgia, GERD, hyperlipidemia, osteoarthritis and pneumonia. Chest x-ray completed showing no new process. Head CT completed showing no acute process. CT of abdomen and pelvis dated showing urinary bladder distention excessive colonic stool. Liver enzymes slightly elevated AST 65, ALT 79 and alkaline phosphatase 219. Ammonia level 28. Urine and blood cultures have been ordered. Patient's pH on this admission 7.44 pCO2 57 HCO3 38. WBC 19.5. Influenza ordered. Patient started on Rocephin. At this time patient remains confused and are not able to follow commands. Discussed case with Dr. Jackson per critical care. Mar patient be transferred to the intensive care unit for closer monitoring. Discussed with patient's sister at bedside CODE STATUS. At this time requesting patient be full code. Patient's potassium also low at 2.8. Replacement has been ordered. Infectious disease will be consulted. Oncology service is consulted. On 09/30/2018 patient is currently in the intensive care unit. Patient was intubated yesterday per critical care. At this time patient is sedated. Discussed case with critical care Dr. Jackson, plan to attempt to wake patient u p tomorrow. Lumbar puncture was performed yesterday repeat head CT also performed. At this time vitals do remain stable. Patient patient currently on acylovir, vancomycin and Rocephin. All cultures pending On 10/01/2018 patient remains in the intensive care unit. Patient remains on mechanical ventilation and sedation at this time. Attempt to wean sedation today per critical care team. At this time critical care, infectious disease and oncology services are following. Patient remains on antibiotics and antivirals. Cultures currently pending On 10/02/2017 patient remains in the intensive care unit on mechanical ventilation. Patient is increasingly agitated and unable to weaned from sedation at this time. Per Dr. Swan antivirals have been DC'd. Patient remains on Vanco and Rocephin for IV antibiotics. On 10/03/2017 patient remains on mechanical ventilation intensive care unit. Attempting to wean off sedation today per nursing staff. Patient remains currently on Versed. tube feeding have been started. Critical care, oncology and infectious disease following. Objective - Vital Signs Vital signs: Vital Signs Temp 99.3 F 10/03/18 12:00 Pulse 101 H 10/03/18 12:00 Resp 22 10/03/18 12:00 BP 104/62 10/02/18 22:00 Pulse Ox 91 L 10/03/18 12:00 Intake & Output 10/02/18 10/03/18 10/03/18 18:59 06:59 18:59 Intake Total 2266.792 6806.906 8883.247 Output Total 850 2355 800 Balance 1416.792 -363.313 212.247 Weight 63 kg 65.8 kg Intake: IV 1300 1300 600 Normal Saline 1200 1300 500 cefTRIAXone 1 gm In 100 100 Sodium Chloride 0.9% 50 ml @ 100 mls/hr IVPB Q24HR [facility] Rx#:[id number] Intake, IV Titration 631.792 251.687 102.247 Amount Clevidipine Butyrate 25 4.666 64.834 35.167 mg In Empty Bag 1 bag @ 1 MG/HR 2 mls/hr IV .Q24H [facility] Rx#:[id number] Midazolam HCl 50 mg In 30.95 92.05 54.150 Sodium Chloride 0.9% 40 ml @ 5 MG/HR 5 mls/hr IV .Q10H [facility] Rx#:[id number] Propofol 1,000 mg In 154.915 Empty Bag 1 bag @ Titrate IV .Q0M [facility] Rx#: [id number] Vancomycin 1,000 mg In 250 Sodium Chloride 0.9% 250 ml @ 125 mls/hr IVPB Q12H [facility] Rx#:[id number] fentaNYL (PF) 1,000 mcg 191.261 94.803 12.93 In Sodium Chloride 0.9% 80 ml @ 1 MCG/KG/HR 5.443 mls/hr IV .[id number] [facility] Rx#:[id number] Tube Feeding 275 350 100 Other 60 90 210 Output: Urine 850 2355 800 Other: Voiding Method Indwelling Catheter Indwelling Catheter Indwelling Catheter ABP, PAP, CO, CI - Last Documented Arterial Blood Pressure 140/72 - Exam Head normocephalic Neck supple Lungs mechanically vented Heart regular rate and rhythm S1-S2, no rub or gallop Abdomen is soft nontender nondistended positive bowel sounds no hepatosplenomegaly Extremities no edema Neuro sedated at this time - Labs CBC & Chem 7: 10/03/18 04:21 10/03/18 09:00 Labs: Abnormal Lab Results - Last 24 Hours (Table) 10/02/18 10/02/18 10/03/18 Range/Units 18:08 23:26 04:21 RBC 3.51 L (3.80-5.40) m/uL Hgb 10.8 L (11.4-16.0) gm/dL Neutrophils # 9.6 H (1.3-7.7) k/uL Lymphocytes # 0.2 L (1.0-4.8) k/uL ABG pH (7.35-7.45) ABG pCO2 (35-45) mmHg ABG HCO3 (21-25) mmol/L ABG Total CO2 (19-24) mmol/L ABG O2 Saturation (94-97) % Potassium (3.5-5.1) mmol/L Carbon Dioxide (22-30) mmol/L Creatinine (0.52-1.04) mg/dL Glucose (74-99) mg/dL POC Glucose (mg/dL) 169 H 162 H (75-99) mg/dL Calcium (8.4-10.2) mg/dL Ammonia (<30) umol/L Total Protein (6.3-8.2) g/dL Albumin (3.5-5.0) g/dL 10/03/18 10/03/18 10/03/18 Range/Units 04:21 04:21 05:49 RBC (3.80-5.40) m/uL Hgb (11.4-16.0) gm/dL Neutrophils # (1.3-7.7) k/uL Lymphocytes # (1.0-4.8) k/uL ABG pH (7.35-7.45) ABG pCO2 (35-45) mmHg ABG HCO3 (21-25) mmol/L ABG Total CO2 (19-24) mmol/L ABG O2 Saturation (94-97) % Potassium 3.0 L (3.5-5.1) mmol/L Carbon Dioxide 32 H (22-30) mmol/L Creatinine 0.34 L (0.52-1.04) mg/dL Glucose 148 H (74-99) mg/dL POC Glucose (mg/dL) 145 H (75-99) mg/dL Calcium 8.1 L (8.4-10.2) mg/dL Ammonia 34 H (<30) umol/L Total Protein 4.5 L (6.3-8.2) g/dL Albumin 2.4 L (3.5-5.0) g/dL 10/03/18 10/03/18 10/03/18 Range/Units 08:24 09:00 11:48 RBC (3.80-5.40) m/uL Hgb (11.4-16.0) gm/dL Neutrophils # (1.3-7.7) k/uL Lymphocytes # (1.0-4.8) k/uL ABG pH 7.49 H (7.35-7.45) ABG pCO2 46 H (35-45) mmHg ABG HCO3 35 H (21-25) mmol/L ABG Total CO2 36 H (19-24) mmol/L ABG O2 Saturation 98.0 H (94-97) % Potassium 3.4 L (3.5-5.1) mmol/L Carbon Dioxide (22-30) mmol/L Creatinine (0.52-1.04) mg/dL Glucose (74-99) mg/dL POC Glucose (mg/dL) 153 H (75-99) mg/dL Calcium (8.4-10.2) mg/dL Ammonia (<30) umol/L Total Protein (6.3-8.2) g/dL Albumin (3.5-5.0) g/dL Microbiology - Last 24 Hours (Table) 09/29/18 15:20 CSF Gram Stain - Preliminary Cerebral Spinal Fluid CSF Culture - Preliminary 09/28/18 17:39 Blood Culture - Preliminary Blood No Growth after 96 hours 09/30/18 20:02 Gram Stain - Final Sputum Sputum Culture - Final Paige albicans Assessment and Plan Assessment: 1. Altered mental status changes with increased agitation. Ammonia level 28. Head CT completed showing no acute process. Abdomen and pelvis CT completed showing urinary bladder distention excessive colonic stool. Urine and blood cultures ordered. Influenza ordered. Lumbar puncture was performed per critical care. Acyclovir has been added per infectious disease. Repeat head CT also completed showing no acute intracranial abnormality. At this time patient remains on mechanical ventilation andsedated. On 10/03/2018 patient will be attempted to wean off sedation per critical care 2. Acute Hypercapnia and hypoxic respiratory failure with known history of COPD. Initial pH on venous blood gas 7.44 pCO2 57 and HCO3 38. pulmonary services following 3. Leukocytosis. Initial white blood cell 19.5. Chest x-ray completed showing no new process. Patient started on Rocephin and vancomycin. Infectious disease consulted. Urine and blood cultures currently showing no growth 4. Hypokalemia. Potassium 2.8. Will replace per protocol. resolved. 5. Non-small cell lung cancer stage III adenocarcinoma. Per patient's family patient has not received treatment for multiple months. Per oncology service is patient received PD1 immunotherapy proximally 2 months ago. Possible MRI when patient is stable to rule out malignancy per oncology services 6. History of COPD. Patient currently on Solu-Medrol and DuoNeb breathing treatments 7. History of CVA 8. History of osteoarthritis 9. History of hyperlipidemia 10. History of fibromyalgia 11. History of depression 12. Ex-smoker. Patient's both proximally half pack per day for 30 years 13. Elevated liver enzymes. AST trending down to 37 ALT 55 and alkaline phosphatase 148 14. Chronic cholecystitis. Abdominal ultrasound completed showing sludge within the gallbladder. Pericholecystic fluid. Gallbladder wall is 0.25 cm, bile duct 0.4 cm. Surgical services were consulted. At this time no immediate surgical intervention DVT prophylaxis Lovenox. GI prophylaxis Protonix At This time patient remains in the intensive care unit. Patient is mechanically ventilated on station. Critical care and infectious disease is following I performed an examination of the patient and discussed their management with the Nurse Practitioner. I have reviewed the Nurse Practitioner's notes and agr ee with the documented findings and plan of care
--- NOTE | 2018-10-03 13:41 | P.PN ---
Subjective Progress Note Date: 10/03/18 Principal diagnosis: COPD exacerbation, acute respiratory failure, IIIA NSCLC Pt remains intubated, stable on monitor, 2 family members at bedside. Objective - Vital Signs Vital signs: Vital Signs Temp 99.3 F 10/03/18 12:00 Pulse 93 10/03/18 13:00 Resp 22 10/03/18 13:00 BP 104/62 10/02/18 22:00 Pulse Ox 92 L 10/03/18 13:00 Intake & Output 10/02/18 10/03/18 10/03/18 18:59 06:59 18:59 Intake Total 2266.792 1399.927 6530.414 Output Total 850 2355 900 Balance 1416.792 -363.313 242.414 Weight 63 kg 65.8 kg Intake: IV 1300 1300 700 Normal Saline 1200 1300 600 cefTRIAXone 1 gm In 100 100 Sodium Chloride 0.9% 50 ml @ 100 mls/hr IVPB Q24HR [facility] Rx#:[id number] Intake, IV Titration 631.792 251.687 107.414 Amount Clevidipine Butyrate 25 4.666 64.834 35.167 mg In Empty Bag 1 bag @ 1 MG/HR 2 mls/hr IV .Q24H [facility] Rx#:[id number] Midazolam HCl 50 mg In 30.95 92.05 59.317 Sodium Chloride 0.9% 40 ml @ 5 MG/HR 5 mls/hr IV .Q10H [facility] Rx#:[id number] Propofol 1,000 mg In 154.915 Empty Bag 1 bag @ Titrate IV .Q0M [facility] Rx#: [id number] Vancomycin 1,000 mg In 250 Sodium Chloride 0.9% 250 ml @ 125 mls/hr IVPB Q12H [facility] Rx#:[id number] fentaNYL (PF) 1,000 mcg 191.261 94.803 12.93 In Sodium Chloride 0.9% 80 ml @ 1 MCG/KG/HR 5.443 mls/hr IV .[id number] [facility] Rx#:[id number] Tube Feeding 275 350 125 Other 60 90 210 Output: Urine 850 2355 900 Other: Voiding Method Indwelling Catheter Indwelling Catheter Indwelling Catheter ABP, PAP, CO, CI - Last Documented Arterial Blood Pressure 133/67 - Constitutional General appearance: Present: no acute distress - EENT EENT Comment(s): 2mm pupils, equal - Respiratory Respiratory: right: wheezing, left: CTA - Cardiovascular Heart sounds: normal: S1, S2 - Gastrointestinal General gastrointestinal: Present: normal bowel sounds, soft - Integumentary Integumentary Comment(s): right forehead bruise at hairline - Neurologic Neurologic: Absent: CNII-XII intact, focal deficits - Psychiatric Psychiatric: Absent: A&O x's 3, appropriate affect, intact judgment & insight - Labs CBC & Chem 7: 10/03/18 04:21 10/03/18 09:00 Labs: Abnormal Lab Results - Last 24 Hours (Table) 10/02/18 10/02/18 10/03/18 Range/Units 18:08 23:26 04:21 RBC 3.51 L (3.80-5.40) m/uL Hgb 10.8 L (11.4-16.0) gm/dL Neutrophils # 9.6 H (1.3-7.7) k/uL Lymphocytes # 0.2 L (1.0-4.8) k/uL ABG pH (7.35-7.45) ABG pCO2 (35-45) mmHg ABG HCO3 (21-25) mmol/L ABG Total CO2 (19-24) mmol/L ABG O2 Saturation (94-97) % Potassium (3.5-5.1) mmol/L Carbon Dioxide (22-30) mmol/L Creatinine (0.52-1.04) mg/dL Glucose (74-99) mg/dL POC Glucose (mg/dL) 169 H 162 H (75-99) mg/dL Calcium (8.4-10.2) mg/dL Ammonia (<30) umol/L Total Protein (6.3-8.2) g/dL Albumin (3.5-5.0) g/dL 10/03/18 10/03/18 10/03/18 Range/Units 04:21 04:21 05:49 RBC (3.80-5.40) m/uL Hgb (11.4-16.0) gm/dL Neutrophils # (1.3-7.7) k/uL Lymphocytes # (1.0-4.8) k/uL ABG pH (7.35-7.45) ABG pCO2 (35-45) mmHg ABG HCO3 (21-25) mmol/L ABG Total CO2 (19-24) mmol/L ABG O2 Saturation (94-97) % Potassium 3.0 L (3.5-5.1) mmol/L Carbon Dioxide 32 H (22-30) mmol/L Creatinine 0.34 L (0.52-1.04) mg/dL Glucose 148 H (74-99) mg/dL POC Glucose (mg/dL) 145 H (75-99) mg/dL Calcium 8.1 L (8.4-10.2) mg/dL Ammonia 34 H (<30) umol/L Total Protein 4.5 L (6.3-8.2) g/dL Albumin 2.4 L (3.5-5.0) g/dL 10/03/18 10/03/18 10/03/18 Range/Units 08:24 09:00 11:48 RBC (3.80-5.40) m/uL Hgb (11.4-16.0) gm/dL Neutrophils # (1.3-7.7) k/uL Lymphocytes # (1.0-4.8) k/uL ABG pH 7.49 H (7.35-7.45) ABG pCO2 46 H (35-45) mmHg ABG HCO3 35 H (21-25) mmol/L ABG Total CO2 36 H (19-24) mmol/L ABG O2 Saturation 98.0 H (94-97) % Potassium 3.4 L (3.5-5.1) mmol/L Carbon Dioxide (22-30) mmol/L Creatinine (0.52-1.04) mg/dL Glucose (74-99) mg/dL POC Glucose (mg/dL) 153 H (75-99) mg/dL Calcium (8.4-10.2) mg/dL Ammonia (<30) umol/L Total Protein (6.3-8.2) g/dL Albumin (3.5-5.0) g/dL Microbiology - Last 24 Hours (Table) 09/29/18 15:20 CSF Gram Stain - Preliminary Cerebral Spinal Fluid CSF Culture - Preliminary 09/28/18 17:39 Blood Culture - Preliminary Blood No Growth after 96 hours 09/30/18 20:02 Gram Stain - Final Sputum Sputum Culture - Final Paige albicans Assessment and Plan (1) Non-small cell lung cancer Narrative/Plan: CSF cytology reported no malignant cells or cells suggestive of inflammation. Pt current condition not felt to be r/t malignancy or treatment of malignancy with immunotherapy-last dose in Aug. Results were discussed with family at bedside. Current Visit: No Status: Chronic Priority: Medium Code(s): C34.90 - MALIGNANT NEOPLASM OF UNSP PART OF UNSP BRONCHUS OR LUNG SNOMED Code(s): 020468264 Plan: Defer ICU mgmt to Critical Care team.
[2018-10-03 14:34] LABS: Hepatits C Virus RNA Not detected (Not detected); Hepatits C Virus RNA, Quant <12 IU/mL (<12); LOG HCV IU/mL <1.08 (<1.08)
--- NOTE | 2018-10-03 16:08 | P.DS ---
Providers Date of admission: 09/28/18 21:14 Expected date of discharge: 10/03/18 Attending physician: Glenys Chang Consults: 09/28/18 21:12 Consult Physician Routine Consulting Provider: Gaetano Robert Consult Reason/Comments: COPD Do you want consulting provider notified?: Yes 09/29/18 08:20 Consult Physician Routine Consulting Provider: Kaiden Mcknight Consult Reason/Comments: lung ca Do you want consulting provider notified?: Yes 09/29/18 09:29 Consult Physician Routine Consulting Provider: Rosana Swan Consult Reason/Comments: elevated white count alt mental status Do you want consulting provider notified?: Yes 10/01/18 10:03 Consult Physician Routine Consulting Provider: Francisco Javier Julian Consult Reason/Comments: cholecystitis Do you want consulting provider notified?: Yes Primary care physician: Steffi Mariano Hospital Course: Discharge diagnosis 1. Altered mental status changes with increased agitation. Ammonia level 28. Head CT completed showing no acute process. Abdomen and pelvis CT completed showing urinary bladder distention excessive colonic stool. Urine and blood cultures ordered. Influenza ordered. Lumbar puncture was performed per critical care. Acyclovir has been added per infectious disease. Repeat head CT also completed showing no acute intracranial abnormality. At this time patient remains on mechanical ventilation andsedated. Sedation was held and patient agitated and unable to weaned. Discussed case with critical care Dr. Ace, commending at this time transferred to [facility] for neurology evaluation 2. Acute Hypercapnia and hypoxic respiratory failure with known history of COPD. Initial pH on venous blood gas 7.44 pCO2 57 and HCO3 38. pulmonary services following 3. Leukocytosis. Initial white blood cell 19.5. Chest x-ray completed showing no new process. Patient started on Rocephin and vancomycin. Infectious disease consulted. Urine and blood cultures currently showing no growth 4. Hypokalemia. Potassium 2.8. Will replace per protocol. resolved. 5. Non-small cell lung cancer stage III adenocarcinoma. Per patient's family patient has not received treatment for multiple months. Per oncology service is patient received PD1 immunotherapy proximally 2 months ago. Possible MRI when patient is stable to rule out malignancy per oncology services 6. History of COPD. Patient currently on Solu-Medrol and DuoNeb breathing treatments 7. History of CVA 8. History of osteoarthritis 9. History of hyperlipidemia 10. History of fibromyalgia 11. History of depression 12. Ex-smoker. Patient's both proximally half pack per day for 30 years 13. Elevated liver enzymes. AST trending down to 37 ALT 55 and alkaline phosphatase 148 14. Chronic cholecystitis. Abdominal ultrasound completed showing sludge within the gallbladder. Pericholecystic fluid. Gallbladder wall is 0.25 cm, bile duct 0.4 cm. Surgical services were consulted. At this time no immediate surgical intervention DVT prophylaxis Lovenox. GI prophylaxis Protonix Patient will be transferred to [facility] for neurology evaluation. Discussed case with patient's family and patient's partner agreeable at this time Hospital course This is a 63-year-old female patient of Dr. mariano. Patient presented to the hospital with complaints of altered mental status changes. She per patient's sister patient started having altered mental status possibly 2 days ago. Patient has a known past medical history of stage III lung cancer. Per patient patient has not received any recent treatment for cancer. Past medical history includes COPD, CVA, fibromyalgia, GERD, hyperlipidemia, osteoarthritis and pneumonia. Chest x-ray completed showing no new process. Head CT completed showing no acute process. CT of abdomen and pelvis dated showing urinary bladder distention excessive colonic stool. Liver enzymes slightly elevated AST 65, ALT 79 and alkaline phosphatase 219. Ammonia level 28. Urine and blood cultures have been ordered. Patient's pH on this admission 7.44 pCO2 57 HCO3 38. WBC 19.5. Influenza ordered. Patient started on Rocephin. At this time patient remains confused and are not able to follow commands. Discussed case with Dr. Jackson per critical care. Mar patient be transferred to the intensive care unit for closer monitoring. Discussed with patient's sister at bedside CODE STATUS. At this time requesting patient be full code. Patient's potassium also low at 2.8. Replacement has been ordered. Infectious disease will be consulted. Oncology service is consulted. On 09/30/2018 patient is currently in the intensive care unit. Patient was intubated yesterday per critical care. At this time patient is sedated. Discussed case with critical care Dr. Jackson, plan to attempt to wake patient up tomorrow. Lumbar puncture was performed yesterday repeat head CT also performed. At this time vitals do remain stable. Patient patient currently on acylovir, vancomycin and Rocephin. All cultures pending On 10/01/2018 patient remains in the intensive care unit. Patient remains on mechanical ventilation and sedation at this time. Attempt to wean sedation today per critical care team. At this time critical care, infectious disease and oncology services are following. Patient remains on antibiotics and antivirals. Cultures currently pending On 10/02/2017 patient remains in the intensive care unit on mechanical ventilation. Patient is increasingly agitated and unable to weaned from sedation at this time. Per Dr. Swan antivirals have been DC'd. Patient remains on Vanco and Rocephin for IV antibiotics. On 10/03/2017 patient remains on mechanical ventilation intensive care unit. Attempting to wean off sedation today per nursing staff. Patient remains currently on Versed. tube feeding have been started. Critical care, oncology and infectious disease following. Discussed case with critical care team at this time recommending transferred to [facility] for neurology evaluation. Patient was attempted to be off sedation and was agitated and unable to wean. Discussed with family agreeable at this time to transfer. I performed an examination of the patient and discussed their management with the Nurse Practitioner. I have reviewed the Nurse Practitioner's notes and agree with the documented findings and plan of care Patient Condition at Discharge: Stable Plan - Discharge Summary Discharge Rx Participant: No New Discharge Prescriptions: No Action Cevimeline [Evoxac] 30 mg PO BID Albuterol Inhaler [Ventolin Hfa Inhaler] 2 puff INHALATION RT-QID PRN PRN Reason: Shortness Of Breath Esomeprazole Magnesium [NexIUM] 40 mg PO BID Escitalopram [Lexapro] 20 mg PO DAILY Morphine Sulfate [Ms Contin] 30 mg PO BID #60 tablet.er oxyCODONE-APAP 10-325MG [Percocet 10-325 mg] 1 tab PO Q6H PRN PRN Reason: Pain Prochlorperazine [Compazine] 10 mg PO Q6H PRN PRN Reason: Nausea Budesonide-Formot 160-4.5 Mcg [Symbicort 160-4.5 Mcg Inhaler] 2 puff INHALATION RT-BID Albuterol Nebulized [Ventolin Nebulized] 2.5 mg INHALATION RT-QID PRN PRN Reason: Shortness Of Breath Ondansetron Odt [Zofran ODT] 8 mg PO Q6H PRN PRN Reason: Nausea ALPRAZolam [Xanax] 0.25 mg PO DIRECTED PRN PRN Reason: Anxiety Folic Acid 0.4 mg PO DAILY Cholecalciferol [Vitamin D3] 1,000 unit PO DAILY Cyanocobalamin (Vitamin B-12) [Vitamin B-12] 1,000 mcg PO BID Furosemide [Lasix] 40 mg PO TID Umeclidinium Troy [Incruse Ellipta] 1 puff INHALATION RT-DAILY Levothyroxine Sodium [Synthroid] 25 mcg PO DAILY guaiFENesin [Mucinex] 600 mg PO DAILY PRN PRN Reason: Cough LORazepam [Ativan] 0.5 mg PO Q6H PRN PRN Reason: Anxiety Tolterodine Tartrate [Detrol LA] 4 mg PO DAILY Pyridoxine HCl (Vitamin B6) [Vitamin B-6] 100 mg PO DAILY Discharge Medication List Albuterol Inhaler [Ventolin Hfa Inhaler] 2 puff INHALATION RT-QID PRN 12/03/13 [History] Cevimeline [Evoxac] 30 mg PO BID 12/03/13 [History] Escitalopram [Lexapro] 20 mg PO DAILY 12/03/13 [History] Esomeprazole Magnesium [NexIUM] 40 mg PO BID 12/03/13 [History] Morphine Sulfate [Ms Contin] 30 mg PO BID #60 tablet.er 03/11/15 [Rx] oxyCODONE-APAP 10-325MG [Percocet 10-325 mg] 1 tab PO Q6H PRN 09/05/16 [History] Albuterol Nebulized [Ventolin Nebulized] 2.5 mg INHALATION RT-QID PRN 02/23/17 [History] Budesonide-Formot 160-4.5 Mcg [Symbicort 160-4.5 Mcg Inhaler] 2 puff INHALATION RT-BID 02/23/17 [History] Ondansetron Odt [Zofran ODT] 8 mg PO Q6H PRN 02/23/17 [History] Prochlorperazine [Compazine] 10 mg PO Q6H PRN 02/23/17 [History] ALPRAZolam [Xanax] 0.25 mg PO DIRECTED PRN 01/20/18 [History] Cholecalciferol [Vitamin D3] 1,000 unit PO DAILY 09/13/18 [History] Cyanocobalamin (Vitamin B-12) [Vitamin B-12] 1,000 mcg PO BID 09/13/18 [History] Folic Acid 0.4 mg PO DAILY 09/13/18 [History] Furosemide [Lasix] 40 mg PO TID 09/13/18 [History] Levothyroxine Sodium [Synthroid] 25 mcg PO DAILY 09/13/18 [History] Umeclidinium Troy [Incruse Ellipta] 1 puff INHALATION RT-DAILY 09/13/18 [History] guaiFENesin [Mucinex] 600 mg PO DAILY PRN 09/13/18 [History] LORazepam [Ativan] 0.5 mg PO Q6H PRN 09/28/18 [History] Pyridoxine HCl (Vitamin B6) [Vitamin B-6] 100 mg PO DAILY 09/28/18 [History] Tolterodine Tartrate [Detrol LA] 4 mg PO DAILY 09/28/18 [History] Follow up Appointment(s)/Referral(s): Steffi Mariano MD [Primary Care Provider] - 1-2 days
[2018-10-03 18:20] LABS: Glucose,Whole Blood 189 mg/dL (75-99)
[2018-10-03] MEDS ORDERED: CISATRACURIUM 2 MG/ML 5 ML VIAL IV ONE (19:46)
[2018-10-03] MEDS: HALOPERIDOL LACTATE 5 MG/ML 1 ML VIAL IVP PRN (19:50)
[2018-10-03 20:10] VITALS: PULSE 96; RESP 20
--- NOTE | 2018-10-03 22:51 | PN ---
PROGRESS NOTE DATE OF SERVICE: 10/03/2018. REASON FOR FOLLOWUP: Leukocytosis. HISTORY OF PRESENT ILLNESS: The patient was seen on rounds early this afternoon. The patient has been afebrile. The patient was in the process of getting weaned off the vent. However, agitation had been noted once the sedation was cut back. No nausea. She has been tolerating some tube feeds. No drainage reported by the nursing staff. She is currently any pressor support. PHYSICAL EXAMINATION: Blood pressure 127/62 with a pulse of 96, temperature 98. She is 90% on 40% FiO2. General description is an elderly female lying in bed in no distress. RESPIRATORY SYSTEM: Unlabored breathing with decreased breath sounds at the base. HEART: S1, S2. Regular rate and rhythm. ABDOMEN: Soft. No tenderness. LABS: Hemoglobin is 10.8, white count 10.1. BUN of 14, creatinine 0.34. Cultures have been negative, including the blood, sputum, urine and CSF. DIAGNOSTIC IMPRESSION AND PLAN: Patient with leukocytosis which is likely multifactorial in this patient who did have acute respiratory failure. The patient did have extensive workup. So far cultures remain negative. Patient is on Rocephin; to continue until the patient is evaluated by the service at [facility]. Family was present at bedside. Questions were answered. MMODL / IJN: [id number] /
== END 2018-10-03 20:31 | disposition short-term general hospital (02) | DRG 70 ==
LOC: EC 17:19 → 3NMEDONC 21:14 → 2SICU 09-29 11:43
PROVIDERS: ADMIT Internal Medicine; ATTEND Internal Medicine
PROC: 5A1945Z Respiratory Ventilation, 24-96 Consecutive Hours (ICD-10-PCS; principal; 2018-09-28)
PROC: 0BH17EZ Insertion of Endotracheal Airway into Trachea, Via Natural or Artificial Opening (ICD-10-PCS; 2018-09-28)
PROC: 009U3ZX Drainage of Spinal Canal, Percutaneous Approach, Diagnostic (ICD-10-PCS; 2018-09-29)
PROC: 02HV33Z Insertion of Infusion Device into Superior Vena Cava, Percutaneous Approach (ICD-10-PCS; 2018-09-29)
PROC: 03HY32Z Insertion of Monitoring Device into Upper Artery, Percutaneous Approach (ICD-10-PCS; 2018-09-29)
DX: G93.41 Metabolic encephalopathy (principal); J96.01 Acute respiratory failure with hypoxia; J96.02 Acute respiratory failure with hypercapnia; C34.12 Malignant neoplasm of upper lobe, left bronchus or lung; E87.2 Acidosis; J44.1 Chronic obstructive pulmonary disease with (acute) exacerbation; J90 Pleural effusion, not elsewhere classified; J98.11 Atelectasis; K81.1 Chronic cholecystitis; E03.9 Hypothyroidism, unspecified; E78.5 Hyperlipidemia, unspecified; E87.6 Hypokalemia; F32.9 Major depressive disorder, single episode, unspecified; G89.29 Other chronic pain; I10 Essential (primary) hypertension; K21.9 Gastro-esophageal reflux disease without esophagitis; M19.90 Unspecified osteoarthritis, unspecified site; M79.7 Fibromyalgia; S00.83XA Contusion of other part of head, initial encounter; E27.9 Disorder of adrenal gland, unspecified; K44.9 Diaphragmatic hernia without obstruction or gangrene; K59.09 Other constipation; M54.9 Dorsalgia, unspecified; R74.8 Abnormal levels of other serum enzymes; D72.829 Elevated white blood cell count, unspecified; Z79.51 Long term (current) use of inhaled steroids; Z79.890 Hormone replacement therapy; Z79.899 Other long term (current) drug therapy; Z86.73 Personal history of transient ischemic attack (TIA), and cerebral infarction without residual deficits; Z92.21 Personal history of antineoplastic chemotherapy; Z87.891 Personal history of nicotine dependence; Z92.3 Personal history of irradiation; Z99.81 Dependence on supplemental oxygen; Z87.01 Personal history of pneumonia (recurrent)
CPT/HCPCS: 36415; 36600; 70450; 71045; 74177; 76705; 80053; 80074; 80202; 81001; 82140; 82803; 82805; 82945; 83036; 83605; 83735; 84100; 84132; 84157; 84484; 85025; 85610; 85730; 86592; 87040; 87070; 87086; 87205; 87502; 87522; 87529; 88108; 89050; 93005; 94002; 94003; 94640; 95819; 96361; 96374; 96375; 96376; 99291

== ENCOUNTER 2018-12-02 21:48 | Inpatient (IN) | payer MEDICARE, OTHER ==
[2018-12-02] MEDS: SODIUM CHLORIDE 0.9% 500 ML 500 ML IV SCH (22:14)
[2018-12-02 22:41] LABS: Calcium 9.1 mg/dL (8.4-10.2); Total Bilirubin 0.8 mg/dL (0.2-1.3); Total Protein 7.3 g/dL (6.3-8.2)
[2018-12-02 22:44] LABS: Anisocytosis Slight; HCT 39.1 % (34.0-46.0); HGB 12.3 gm/dL (11.4-16.0); MCH 30.2 pg (25.0-35.0); MCHC 31.4 g/dL (31.0-37.0); MCV 96.1 fL (80.0-100.0); Macrocytosis Slight; Mean Platelet Volume 7.5; RBC 4.07 m/uL (3.80-5.40); RDW 17.1 % (11.5-15.5); WBC 10.9 k/uL (3.8-10.6)
[2018-12-02 22:47] LABS: Platelet Count 317 k/uL (150-450)
[2018-12-02 22:48] LABS: INR 0.9 (<1.2); Partial Thromboplastin Time 22.2 sec (22.0-30.0); Prothrombin Time 9.6 sec (9.0-12.0)
[2018-12-02 22:57] LABS: Potassium 5.4 mmol/L (3.5-5.1)
--- NOTE | 2018-12-02 23:03 | XR ---
EXAM: XR Chest, 1 View CLINICAL HISTORY: ITS.REASON XR Reason: Fever TECHNIQUE: Frontal view of the chest. COMPARISON: No relevant prior studies available. FINDINGS: Lungs: Right lower lobe consolidation. Pleural space: Bilateral pleural effusions. No pneumothorax. Heart: No pneumomediastinum. Mediastinum: Unremarkable. Bones/joints: No definite fracture. IMPRESSION: 1. Right lower lobe consolidation. 2. Bilateral pleural effusions.
[2018-12-02] MEDS ORDERED: PIPERACILLIN-TAZOBACTAM 3.375 GM in SODIUM CHLORIDE 0.9% 100 ML IVPB STA (23:06)
[2018-12-02] MEDS ORDERED: VANCOMYCIN IV PER PHARMACY 1 EACH MISC MISCELLANE PRN (23:06)
[2018-12-02] MEDS ORDERED: VANCOMYCIN 1,500 MG in SODIUM CHLORIDE 0.9% 250 ML IVPB STA (23:11)
[2018-12-02 23:21] LABS: Band Neutrophils % 20 %; Lymphocytes # (M) 0.22 k/uL (1.0-4.8); Monocytes # (M) 0.55 k/uL (0-1.0); Neutrophils % (M) 74 %; Nucleated Red Blood Cells 0 /100 WBC (0-0); Total Cells Counted 200
--- NOTE | 2018-12-02 23:37 | ED ---
SOB HPI - General Chief Complaint: Shortness of Breath Stated Complaint: MARIANNA Time Seen by Provider: 12/02/18 21:54 Source: patient, EMS Mode of arrival: EMS - History of Present Illness Initial Comments: Virgen Blake is a 63-year-old female with a past medical history of a lung cancer and recent long admission to the hospital with prolonged intubation and subsequently trach intake. Patient has been at [facility] for one week she's been off her trach she's been doing well though she has continued to have a mildly productive cough. Throughout the day today she had progressively worsening shortness of breath difficulty breathing and decision was made to transfer her to our facility for further evaluation. Upon arrival patient reports no complaints she states that she's just seconds scares the caregivers at [facility] so they made her come here. She does admit to having a cough. Her significant other's at bedside state that she pulled on her trach earlier today and there w as some bleeding but it stopped quickly. He also reports that she's had a persistent cough. They do report that she has previously been made DO NOT RESUSCITATE however felt that she was recovering well and again made herself full code. - Related Data Home Medications Medication Instructions Recorded Confirmed Furosemide [Lasix] 40 mg PO DAILY@0900 09/13/18 12/02/18 Levothyroxine Sodium [Synthroid] 25 mcg PO DAILY@1100 09/13/18 12/02/18 LORazepam [Ativan] 0.5 mg PO Q6H PRN 09/28/18 12/02/18 Acetaminophen [Tylenol Arthritis] 650 mg PO Q6H PRN 12/02/18 12/02/18 Amiodarone [Cordarone] 200 mg PO DAILY@0912/02/18 12/02/18 Budesonide [Pulmicort] 1 mg INHALATION RT-BID@09,209912/02/18 12/02/18 Chlorhexidine Gluconate [Periogard] 15 ml PO BID@0900,209912/02/18 12/02/18 Lactulose 20 gm PO Q8H PRN 12/02/18 12/02/18 Levalbuterol Nebulized [Xopenex 1.25 mg INHALATION RT-Q6H 12/02/18 12/02/18 Nebulized] Levothyroxine Sodium [Synthroid] 50 mcg PO DAILY@0600 12/02/18 12/02/18 Lisinopril [Zestril] 10 mg PO DAILY@0900 12/02/18 12/02/18 Ondansetron [Zofran ODT] 4 mg PO Q6H PRN 12/02/18 12/02/18 Pantoprazole Sodium [Protonix] 40 mg PO DAILY@0600 12/02/18 12/02/18 Polyethylene Glycol 3350 [Miralax] 17 gm PO DAILY PRN 12/02/18 12/02/18 QUEtiapine FUMARATE 50 mg PO BID@0900,209912/02/18 12/02/18 Sennosides/Docusate Sodium 2 tab PO BID@0900,209912/02/18 12/02/18 [Senna-S Laxative Tablet] Simethicone 80 mg PO DAILY PRN 12/02/18 12/02/18 hydrALAZINE HCL 25 mg PO TID@0600,1400,2200 12/02/18 12/02/18 oxyCODONE ER [OxyCONTIN] 10 mg PO BID@0900,209912/02/18 12/02/18 oxyCODONE HCL [OxyCONTIN] 10 mg PO Q4H PRN 12/02/18 12/02/18 Allergies Allergy/AdvReac Type Severity Reaction Status Date / Time No Known Allergies Allergy Verified 12/02/18 22:43 Review of Systems ROS Statement: Those systems with pertinent positive or pertinent negative responses have been documented in the HPI. ROS Other: All systems not noted in ROS Statement are negative. 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 stable over some time, TIA history of, hiatal hernia, chronic constipation, chronic back pain, degenerative arthritis History of Any Multi-Drug Resistant Organisms: None Reported Additional Past Surgical History / Comment(s): SINUS surgery Past Anesthesia/Blood Transfusion Reactions: No Reported Reaction Past Psychological History: Depression Smoking Status: Former smoker Past Alcohol Use History: None Reported Past Drug Use History: None Reported - Past Family History Mother Family Medical History: Cancer Father Family Medical History: Cancer General Exam - General Exam Comments Initial Comments: Physical Exam GENERAL: Chronically ill-appearing, debilitated, trach, pain, ashen skin HENT: Normocephalic, Atraumatic. Tracheostomy in place EYES: PERRL, EOMI PULMONARY: Tachypnea, wheezing Crackles at bilateral bases CARDIOVASCULAR: There is a regular rate and rhythm without any murmurs gallops or rubs. ABDOMEN: PEG tube in place SKIN: Multiple bruises on bilateral upper and lower extremities : Normal external genitalia NEUROLOGIC: Patient is alert and oriented x3. Moving all extremities spontaneously MUSCULOSKELETAL: Normal extremities with adequate strength and full range of motion. No lower e xtremity swelling or edema. No calf tenderness. PSYCHIATRIC: Normal psychiatric evaluation Course Vital Signs 12/02/18 12/02/18 12/02/18 21:55 22:30 23:00 Temperature 98.2 F Pulse Rate 92 90 84 Respiratory 19 30 H 28 H Rate Blood Pressure 96/47 86/50 84/54 O2 Sat by Pulse 89 L 87 L 94 L Oximetry 12/02/18 12/02/18 12/02/18 23:30 23:40 23:44 Temperature Pulse Rate 93 87 81 Respiratory 31 H 29 H 26 H Rate Blood Pressure 79/68 86/49 86/49 O2 Sat by Pulse 91 L 92 L 95 Oximetry 12/03/18 12/03/18 12/03/18 00:00 00:15 00:30 Temperature Pulse Rate 91 91 90 Respiratory 21 24 38 H Rate Blood Pressure 95/35 96/45 96/45 O2 Sat by Pulse 79 L 92 L 85 L Oximetry 12/03/18 12/03/18 12/03/18 00:50 01:00 01:10 Temperature Pulse Rate 92 93 90 Respiratory 31 H 32 H 32 H Rate Blood Pressure 77/44 77/44 80/32 O2 Sat by Pulse 88 L 86 L 86 L Oximetry 12/03/18 12/03/18 12/03/18 01:30 01:40 02:00 Temperature Pulse Rate 88 86 89 Respiratory 24 14 17 Rate Blood Pressure 77/37 86/75 65/39 O2 Sat by Pulse 85 L 86 L 100 Oximetry 12/03/18 12/03/18 12/03/18 02:03 02:15 02:30 Temperature Pulse Rate 89 84 81 Respiratory 14 14 19 Rate Blood Pressure 79/40 90/58 90/58 O2 Sat by Pulse 100 96 99 Oximetry 12/03/18 12/03/18 02:45 03:00 Temperature Pulse Rate 80 78 Respiratory 18 17 Rate Blood Pressure 98/54 81/52 O2 Sat by Pulse 94 L 99 Oximetry Procedures - Central Line Placement Right Femoral Consent Obtained: verbal consent Patient Placed on Monitor/Pulse Ox: Yes MD Prep: mask, gown, gloves Central Line Prep: Chlorhexidine scrub Local Anesthesia Used: Lidocaine 1% Amount of Anesthesia Used (mls): 3 Ultrasound Used for Placement: Yes Central Line Lumen Inserted: triple Bloods Obtained for Lab: No Central Line Position: good blood return, all ports aspirated, flushed, capped, sutured in place with nylon Dressing Applied: Tegaderm Patient Tolerated Procedure: well, no complications Complications: none - Sepsis Sepsis Focused Exam #1 Sepsis Focused Exam Date: 12/03/18 Sepsis Focused Exam Time: 02:02 Sepsis Focused Exam Complete: Yes Vital Signs & RN Notes Reviewed: Yes Capillary Refill: > 2 Seconds: Fingers, Toes Peripheral Pulses: Weak: Radial (R), Radial (L) Skin Color: Ashen Respiratory Exam: respiratory distress Cardiovascular Exam: regular rate, normal rhythm Medical Decision Making - Medical Decision Making The patient was seen and evaluated immediately upon arrival to the emergency department patient was noted to be tachypneic tachycardic Supplemental oxygen and breathing treatments were ordered Sepsis workup was initiated Chest x-ray confirms a right lower lobe pneumonia at 10:55 PM. Sepsis identified, broad-spectrum antibiotics ordered patient has been inpatient will be treated for hospital acquired pneumonia with the Vanccomycin and Zosyn Patient's history of heart failure gentle fluids were ordered however patient remained hypotensive and decision was made to place a right femoral central line. Due to patient having a trach with trach collar in place she was not a good candidate for an IJ due to her pulmonary history did not feel should be a good candidate for a subclavian line and therefore femoral line was placed. One was placed with about difficulty. There was some bruising likely related to patient being anticoagulated. Levophed was initiated. The decided the patient needed to be sedated and placed back on the vent due to her increasing work of breathing. Patient was agreeable to this. Final and Versed pushes were ordered for sedation, trach was exchanged for a cuffed trach and patient was placed back on ventilator. Patient's primary care Dr. Benoit admits to Dr. Chang. Patient care was discussed with Dr. Chang who agrees with plan to admit to the ICU for septic shock secondary to healthcare associated pneumonia. Patient care was discussed with Dr. Kinsey and agrees with plan for admission. - Lab Data Result diagrams: 12/02/18 22:17 12/02/18 22:17 Lab Results 12/02/18 12/02/18 12/02/18 Range/Units 22:17 22:17 22:17 WBC 10.9 H (3.8-10.6) k/uL RBC 4.07 (3.80-5.40) m/uL Hgb 12.3 (11.4-16.0) gm/dL Hct 39.1 (34.0-46.0) % MCV 96.1 (80.0-100.0) fL MCH 30.2 (25.0-35.0) pg MCHC 31.4 (31.0-37.0) g/dL RDW 17.1 H (11.5-15.5) % Plt Count 317 D (150-450) k/uL Neutrophils % (Manual) 74 % Band Neutrophils % 20 % Lymphocytes % (Manual) 2 % Monocytes % (Manual) 5 % Neutrophils # (Manual) 10.20 H (1.3-7.7) k/uL Lymphocytes # (Manual) 0.22 L (1.0-4.8) k/uL Monocytes # (Manual) 0.55 (0-1.0) k/uL Nucleated RBCs 0 (0-0) /100 WBC Manual Slide Review Performed Anisocytosis Slight Macrocytosis Slight PT (9.0-12.0) sec INR (<1.2) APTT (22.0-30.0) sec Sample Site ABG pH (7.35-7.45) ABG pCO2 (35-45) mmHg ABG pO2 (83-108) mmHg ABG HCO3 (21-25) mmol/L ABG Total CO2 (19-24) mmol/L ABG O2 Saturation (94-97) % ABG Base Excess mmol/L Alex Test FiO2 % Sodium 130 L (137-145) mmol/L Potassium 5.4 H (3.5-5.1) mmol/L Chloride 94 L (98-107) mmol/L Carbon Dioxide 31 H (22-30) mmol/L Anion Gap 5 mmol/L BUN 50 H (7-17) mg/dL Creatinine 0.85 (0.52-1.04) mg/dL Est GFR (CKD-EPI)AfAm 84 (>60 ml/min/1.73 sqM) Est GFR (CKD-EPI)NonAf 72 (>60 ml/min/1.73 sqM) Glucose 169 H (74-99) mg/dL Lactic Ac Sepsis Rflx Plasma Lactic Acid Valdemar 2.1 H* (0.7-2.0) mmol/L Calcium 9.1 (8.4-10.2) mg/dL Total Bilirubin 0.8 (0.2-1.3) mg/dL AST 40 H (14-36) U/L ALT 21 (9-52) U/L Alkaline Phosphatase 100 (38-126) U/L Troponin I (0.000-0.034) ng/mL Total Protein 7.3 (6.3-8.2) g/dL Albumin 4.0 (3.5-5.0) g/dL Urine Color Urine Appearance (Clear) Urine pH (5.0-8.0) Ur Specific Shepherd (1.001-1.035) Urine Protein (Negative) Urine Glucose (UA) (Negative) Urine Ketones (Negative) Urine Blood (Negative) Urine Nitrite (Negative) Urine Bilirubin (Negative) Urine Urobilinogen (<2.0) mg/dL Ur Leukocyte Esterase (Negative) 12/02/18 12/02/18 12/02/18 Range/Units 22:17 22:17 22:59 WBC (3.8-10.6) k/uL RBC (3.80-5.40) m/uL Hgb (11.4-16.0) gm/dL Hct (34.0-46.0) % MCV (80.0-100.0) fL MCH (25.0-35.0) pg MCHC (31.0-37.0) g/dL RDW (11.5-15.5) % Plt Count (150-450) k/uL Neutrophils % (Manual) % Band Neutrophils % % Lymphocytes % (Manual) % Monocytes % (Manual) % Neutrophils # (Manual) (1.3-7.7) k/uL Lymphocytes # (Manual) (1.0-4.8) k/uL Monocytes # (Manual) (0-1.0) k/uL Nucleated RBCs (0-0) /100 WBC Manual Slide Review Anisocytosis Macrocytosis PT 9.6 (9.0-12.0) sec INR 0.9 (<1.2) APTT 22.2 (22.0-30.0) sec Sample Site ABG pH (7.35-7.45) ABG pCO2 (35-45) mmHg ABG pO2 (83-108) mmHg ABG HCO3 (21-25) mmol/L ABG Total CO2 (19-24) mmol/L ABG O2 Saturation (94-97) % ABG Base Excess mmol/L Alex Test FiO2 % Sodium (137-145) mmol/L Potassium (3.5-5.1) mmol/L Chloride (98-107) mmol/L Carbon Dioxide (22-30) mmol/L Anion Gap mmol/L BUN (7-17) mg/dL Creatinine (0.52-1.04) mg/dL Est GFR (CKD-EPI)AfAm (>60 ml/min/1.73 sqM) Est GFR (CKD-EPI)NonAf (>60 ml/min/1.73 sqM) Glucose (74-99) mg/dL Lactic Ac Sepsis Rflx Y Plasma Lactic Acid Valdemar (0.7-2.0) mmol/L Calcium (8.4-10.2) mg/dL Total Bilirubin (0.2-1.3) mg/dL AST (14-36) U/L ALT (9-52) U/L Alkaline Phosphatase (38-126) U/L Troponin I <0.012 (0.000-0.034) ng/mL Total Protein (6.3-8.2) g/dL Albumin (3.5-5.0) g/dL Urine Color Urine Appearance (Clear) Urine pH (5.0-8.0) Ur Specific Shepherd (1.001-1.035) Urine Protein (Negative) Urine Glucose (UA) (Negative) Urine Ketones (Negative) Urine Blood (Negative) Urine Nitrite (Negative) Urine Bilirubin (Negative) Urine Urobilinogen (<2.0) mg/dL Ur Leukocyte Esterase (Negative) 12/03/18 12/03/18 Range/Units 02:22 03:05 WBC (3.8-10.6) k/uL RBC (3.80-5.40) m/uL Hgb (11.4-16.0) gm/dL Hct (34.0-46.0) % MCV (80.0-100.0) fL MCH (25.0-35.0) pg MCHC (31.0-37.0) g/dL RDW (11.5-15.5) % Plt Count (150-450) k/uL Neutrophils % (Manual) % Band Neutrophils % % Lymphocytes % (Manual) % Monocytes % (Manual) % Neutrophils # (Manual) (1.3-7.7) k/uL Lymphocytes # (Manual) (1.0-4.8) k/uL Monocytes # (Manual) (0-1.0) k/uL Nucleated RBCs (0-0) /100 WBC Manual Slide Review Anisocytosis Macrocytosis PT (9.0-12.0) sec INR (<1.2) APTT (22.0-30.0) sec Sample Site r rad ABG pH 7.30 L (7.35-7.45) ABG pCO2 57 H (35-45) mmHg ABG pO2 172 H (83-108) mmHg ABG HCO3 28 H (21-25) mmol/L ABG Total CO2 30 H (19-24) mmol/L ABG O2 Saturation 99.6 H (94-97) % ABG Base Excess 1.5 mmol/L Alex Test Yes FiO2 100 % Sodium (137-145) mmol/L Potassium (3.5-5.1) mmol/L Chloride (98-107) mmol/L Carbon Dioxide (22-30) mmol/L Anion Gap mmol/L BUN (7-17) mg/dL Creatinine (0.52-1.04) mg/dL Est GFR (CKD-EPI)AfAm (>60 ml/min/1.73 sqM) Est GFR (CKD-EPI)NonAf (>60 ml/min/1.73 sqM) Glucose (74-99) mg/dL Lactic Ac Sepsis Rflx Plasma Lactic Acid Valdemar (0.7-2.0) mmol/L Calcium (8.4-10.2) mg/dL Total Bilirubin (0.2-1.3) mg/dL AST (14-36) U/L ALT (9-52) U/L Alkaline Phosphatase (38-126) U/L Troponin I (0.000-0.034) ng/mL Total Protein (6.3-8.2) g/dL Albumin (3.5-5.0) g/dL Urine Color Light Yellow Urine Appearance Clear (Clear) Urine pH 5.5 (5.0-8.0) Ur Specific Shepherd 1.011 (1.001-1.035) Urine Protein Negative (Negative) Urine Glucose (UA) Negative (Negative) Urine Ketones Negative (Negative) Urine Blood Negative (Negative) Urine Nitrite Negative (Negative) Urine Bilirubin Negative (Negative) Urine Urobilinogen <2.0 (<2.0) mg/dL Ur Leukocyte Esterase Negative (Negative) - EKG Data -: EKG Interpreted by Me EKG shows normal: sinus rhythm EKG Comments: TEG was obtained at 2156, rate is 91 rhythm is sinus there is normal axis are normal intervals, CA 1:30, QRS 72, QT 340, QTC 428 there are no acute ST elevations or depressions there is no evidence of acute ischemia or infarction. EKG does have significant respiratory artifact. Critical Care Time Critical Care Time: Yes Total Critical Care Time: 45 Critical Care Time: Critical Care Time Critical care time was exclusive of separately billable procedures and treating other patients and teaching time. Critical care was necessary to treat or prevent imminent or life-threatening deterioration. Given the critical condition in which the patient arrived, the patient was immediately assessed by myself and the nurse, and cardiac monitoring initiated due to the potential for rapid decompensation of the patient's clinical condition. During the course of the patients stay, I spent a considerable amount of time at the bedside performing serial re-evaluations of the patient's hemodynamic and clinical status because of the recognized potential threat to life or limb in this condition. I then had a chance to review not only all of the available current laboratory and radiographic studies obtained today, but I also reviewed old records available to me at the time. Additionally, any ancillary information available including radiologic technician records were reviewed. Sequential vital signs were obtained. Disposition Clinical Impression: Non-small cell lung cancer, Acute respiratory failure, Pleural effusion, At risk for readmission to hospital, HCAP (healthcare-associated pneumonia), Septic shock Disposition: ADMITTED IP TO THIS HOSP Condition: Serious Referrals: Grey Hernandez MD [Primary Care Provider] - 1-2 days
[2018-12-03] MEDS: NOREPINEPHRINE 4 MG in SODIUM CHLORIDE 0.9% 250 ML IV SCH ×5 (01:32→13:02)
[2018-12-03] MEDS: MIDAZOLAM 1 MG/ML 5 ML VIAL IV PRN ×2 (01:36→06:11)
[2018-12-03] MEDS: fentaNYL (PF) 50 MCG/ML 2 ML AMP IVP PRN ×2 (01:38→04:39)
[2018-12-03 02:35] LABS: ABG Base Excess 1.5 mmol/L; ABG HCO3 28 mmol/L (21-25); ABG Oxygen Saturation 99.6 % (94-97); ABG PCO2 57 mmHg (35-45); ABG PO2 172 mmHg (83-108); ABG TCO2 30 mmol/L (19-24)
[2018-12-03 03:19] LABS: Appearance,Urine Clear (Clear); Bilirubin,Urine Negative (Negative); Blood,Urine Negative (Negative); Color,Urine Light Yellow; Glucose,Urine (UA) Negative (Negative); Ketones,Urine Negative (Negative); Leukocyte Esterase,Urine Negative (Negative); Nitrite,Urine Negative (Negative); PH, Urine 5.5 (5.0-8.0); Protein,Urine Negative (Negative); Specific Gravity,Urine 1.011 (1.001-1.035); Urobilinogen,Urine <2.0 mg/dL (<2.0)
[2018-12-03] MEDS ORDERED: NALOXONE 0.4 MG/ML 1 ML VIAL IV PRN (04:53)
[2018-12-03] MEDS: SODIUM CHLORIDE 0.9% 1,000 ML IV SCH ×3 (05:44→21:31)
[2018-12-03 06:54] LABS: Glucose,Whole Blood 152 mg/dL (75-99)
[2018-12-03 07:45] LABS: Anisocytosis Slight; HCT 36.9 % (34.0-46.0); HGB 11.2 gm/dL (11.4-16.0); MCH 29.7 pg (25.0-35.0); MCHC 30.4 g/dL (31.0-37.0); MCV 97.6 fL (80.0-100.0); Macrocytosis Slight; Mean Platelet Volume 7.3; Platelet Count 349 k/uL (150-450); RBC 3.78 m/uL (3.80-5.40); RDW 17.3 % (11.5-15.5); WBC 18.4 k/uL (3.8-10.6)
[2018-12-03 07:58] LABS: Calcium 8.5 mg/dL (8.4-10.2); Magnesium 1.8 mg/dL (1.6-2.3); Phosphorus 3.7 mg/dL (2.5-4.5); Potassium 4.9 mmol/L (3.5-5.1)
[2018-12-03] MEDS: HEPARIN SODIUM,PORCINE 5,000 UNIT/ML 1 ML VIAL SQ SCH ×2 (08:13→17:25)
[2018-12-03] MEDS: PANTOPRAZOLE 40 MG/10 ML VIAL IV SCH (08:14)
[2018-12-03] MEDS ORDERED: SODIUM CHLORIDE 0.9% 1,000 ML IV ONE (08:28)
[2018-12-03] MEDS ORDERED: POLYETHYLENE GLYCOL 3350 17 GM POWD.PACK PO PRN (09:27)
[2018-12-03] MEDS ORDERED: AMIODARONE 200 MG TAB PO SCH (09:27)
--- NOTE | 2018-12-03 09:48 | P.HPIM ---
History of Present Illness H&P Date: 12/03/18 This is a 63-year-old female patient who presented to the hospital with worsening shortness of breath. Patient has a past medical history of recent hospital admission in which she was admitted to [facility] hearing transferred to [facility] which required prolonged intubation and tracheostomy. Patient was recently discharged to [facility] D/C to [facility] week ago. Patient has had increased sputum production and cough. Patient has past medical history of non- small cell lung cancer stage III, CVA, COPD, GERD, hyperlipidemia, osteoarthritis,chronic back pain and depression. Chest x-ray completed in ER showing right lower lobe consolidation with bilateral pleural effusions. Patient's WBC elevated at 10.9. Patient also have a lactic acid of 2.1. UA negative. Patient's blood pressure low. Patient started on Levophed and transferred to the ICU. Dr. Jackson has been consulted for critical care. Patient started on vancomycin and Zosyn for antibiotic. Blood urine and sputum cultures ordered. At this time patient is on mechanical ventilation resting comfortably in bed. Patient is following commands. Review of Systems Please refer to HPI otherwise unremarkable Past Medical History Past Medical History: Cancer, COPD, CVA/TIA, Fibromyalgia, GERD/Reflux, Hyperlipidemia, Osteoarthritis (OA), Pneumonia Additional Past Medical History / Comment(s): Non-small cell lung cancer stage 3 adenocarcinoma, COPD, fibromyalgia, acid reflux, hyperlipidemia, osteoarthritis, adrenal mass that has remained stable over some time, TIA history of, hiatal hernia, chronic constipation, chronic back pain, degenerative arthritis History of Any Multi-Drug Resistant Organisms: None Reported Additional Past Surgical History / Comment(s): SINUS surgery Past Anesthesia/Blood Transfusion Reactions: No Reported Reaction Past Psychological History: Depression Smoking Status: Former smoker Past Alcohol Use History: None Reported Past Drug Use History: None Reported - Past Family History Mother Family Medical History: Cancer Father Family Medical History: Cancer Medications and Allergies Home Medications Medication Instructions Recorded Confirmed Type Furosemide [Lasix] 40 mg PO DAILY@0900 09/13/18 12/02/18 History Levothyroxine Sodium [Synthroid] 25 mcg PO DAILY@1100 09/13/18 12/02/18 History LORazepam [Ativan] 0.5 mg PO Q6H PRN 09/28/18 12/02/18 History Acetaminophen [Tylenol Arthritis] 650 mg PO Q6H PRN 12/02/18 12/02/18 History Amiodarone [Cordarone] 200 mg PO DAILY@0912/02/18 12/02/18 History Budesonide [Pulmicort] 1 mg INHALATION RT-BID@0900,209912/02/18 12/02/18 History Chlorhexidine Gluconate [Periogard] 15 ml PO BID@0900,209912/02/18 12/02/18 History Lactulose 20 gm PO Q8H PRN 12/02/18 12/02/18 History Levalbuterol Nebulized [Xopenex 1.25 mg INHALATION RT-Q6H 12/02/18 12/02/18 History Nebulized] Levothyroxine Sodium [Synthroid] 50 mcg PO DAILY@0600 12/02/18 12/02/18 History Lisinopril [Zestril] 10 mg PO DAILY@0900 12/02/18 12/02/18 History Ondansetron [Zofran ODT] 4 mg PO Q6H PRN 12/02/18 12/02/18 History Pantoprazole Sodium [Protonix] 40 mg PO DAILY@0600 12/02/18 12/02/18 History Polyethylene Glycol 3350 [Miralax] 17 gm PO DAILY PRN 12/02/18 12/02/18 History QUEtiapine FUMARATE 50 mg PO BID@0900,209912/02/18 12/02/18 History Sennosides/Docusate Sodium 2 tab PO BID@0900,209912/02/18 12/02/18 History [Senna-S Laxative Tablet] Simethicone 80 mg PO DAILY PRN 12/02/18 12/02/18 History hydrALAZINE HCL 25 mg PO TID@0600,1400,2200 12/02/18 12/02/18 History oxyCODONE ER [OxyCONTIN] 10 mg PO BID@0900,209912/02/18 12/02/18 History oxyCODONE HCL [OxyCONTIN] 10 mg PO Q4H PRN 12/02/18 12/02/18 History Allergies Allergy/AdvReac Type Severity Reaction Status Date / Time No Known Allergies Allergy Verified 12/02/18 22:43 Physical Exam Vitals: Vital Signs Temp Pulse Resp BP Pulse Ox 12/03/18 09:15 73 19 115/47 97 12/03/18 09:00 68 17 85/35 97 12/03/18 08:45 74 18 110/49 95 12/03/18 08:30 67 18 91/45 98 12/03/18 08:15 71 18 78/42 98 12/03/18 08:00 98.5 F 75 23 107/54 97 12/03/18 07:45 73 20 102/49 98 12/03/18 07:30 72 18 102/50 98 12/03/18 07:15 73 18 98/48 98 12/03/18 07:00 77 18 92/49 98 12/03/18 06:45 80 18 90/44 98 12/03/18 06:30 85 18 105/58 98 12/03/18 06:24 85 18 99 12/03/18 06:11 81 18 107/54 100 12/03/18 05:51 81 18 104/52 100 12/03/18 05:30 80 19 107/51 100 12/03/18 05:15 79 18 106/53 100 12/03/18 05:00 80 18 104/55 100 12/03/18 04:45 80 18 105/57 100 12/03/18 04:30 80 19 109/53 100 12/03/18 04:15 76 18 95/47 100 12/03/18 04:00 79 18 90/49 100 12/03/18 03:45 80 18 90/47 100 12/03/18 03:30 79 10 L 80/38 94 L 12/03/18 03:00 78 17 81/52 99 12/03/18 02:45 80 18 98/54 94 L 12/03/18 02:30 81 19 90/58 99 12/03/18 02:15 84 14 90/58 96 12/03/18 02:03 89 14 79/40 100 12/03/18 02:00 89 17 65/39 100 12/03/18 01:40 86 14 86/75 86 L 12/03/18 01:30 88 24 77/37 85 L 12/03/18 01:10 90 32 H 80/32 86 L 12/03/18 01:00 93 32 H 77/44 86 L 12/03/18 00:50 92 31 H 77/44 88 L 12/03/18 00:30 90 38 H 96/45 85 L 12/03/18 00:15 91 24 96/45 92 L 12/03/18 00:00 91 21 95/35 79 L 12/02/18 23:44 81 26 H 86/49 95 12/02/18 23:40 87 29 H 86/49 92 L 12/02/18 23:30 93 31 H 79/68 91 L 12/02/18 23:00 84 28 H 84/54 94 L 12/02/18 22:30 90 30 H 86/50 87 L 12/02/18 21:55 98.2 F 92 19 96/47 89 L Intake and Output 12/02/18 12/03/18 12/03/18 22:59 06:59 14:59 Intake Total 277.114 9360 Output Total 800 285 Balance -546.000 844 Intake: IV 375 Sodium Chloride 0.9% 1, 375 000 ml @ 125 mls/hr IV . Q8H LOR[facility]A Rx#:[id number] Intake, IV Titration 254.000 754 Amount Norepinephrine 4 mg In 254.000 254 Sodium Chloride 0.9% 250 ml @ 0.05 MCG/KG/MIN 15. 554 mls/hr IV .[id number] LORETA Rx#:[id number] Sodium Chloride 0.9% 500 500 ml 500 ml @ 1000 mls/hr IV Q35M LORETA Rx#:[id number] Output: Urine 800 285 Other: Voiding Method Indwelling Catheter Weight 81.647 kg Head normocephalic Neck supple. Tracheostomy in place Lungs diminished with bilateral rhonchi. Heart regular rate and rhythm S1-S2, no rub or gallop Abdomen is soft nontender nondistended positive bowel sounds no hepatosplenomegaly Extremities no edema Neuro follows commands. On mechanical ventilation Results CBC & Chem 7: 12/03/18 07:31 12/03/18 07:31 Labs: Abnormal Lab Results - Last 24 Hours (Table) 12/02/18 12/02/18 12/02/18 Range/Units 22:17 22:17 22:17 WBC 10.9 H (3.8-10.6) k/uL RBC (3.80-5.40) m/uL Hgb (11.4-16.0) gm/dL MCHC (31.0-37.0) g/dL RDW 17.1 H (11.5-15.5) % Neutrophils # (Manual) 10.20 H (1.3-7.7) k/uL Lymphocytes # (Manual) 0.22 L (1.0-4.8) k/uL ABG pH (7.35-7.45) ABG pCO2 (35-45) mmHg ABG pO2 (83-108) mmHg ABG HCO3 (21-25) mmol/L ABG Total CO2 (19-24) mmol/L ABG O2 Saturation (94-97) % Sodium 130 L (137-145) mmol/L Potassium 5.4 H (3.5-5.1) mmol/L Chloride 94 L (98-107) mmol/L Carbon Dioxide 31 H (22-30) mmol/L BUN 50 H (7-17) mg/dL Glucose 169 H (74-99) mg/dL POC Glucose (mg/dL) (75-99) mg/dL Plasma Lactic Acid Valdemar 2.1 H* (0.7-2.0) mmol/L AST 40 H (14-36) U/L 12/03/18 12/03/18 12/03/18 Range/Units 02:22 02:45 06:40 WBC (3.8-10.6) k/uL RBC (3.80-5.40) m/uL Hgb (11.4-16.0) gm/dL MCHC (31.0-37.0) g/dL RDW (11.5-15.5) % Neutrophils # (Manual) (1.3-7.7) k/uL Lymphocytes # (Manual) (1.0-4.8) k/uL ABG pH 7.30 L (7.35-7.45) ABG pCO2 57 H (35-45) mmHg ABG pO2 172 H (83-108) mmHg ABG HCO3 28 H (21-25) mmol/L ABG Total CO2 30 H (19-24) mmol/L ABG O2 Saturation 99.6 H (94-97) % Sodium (137-145) mmol/L Potassium (3.5-5.1) mmol/L Chloride (98-107) mmol/L Carbon Dioxide (22-30) mmol/L BUN (7-17) mg/dL Glucose (74-99) mg/dL POC Glucose (mg/dL) 152 H (75-99) mg/dL Plasma Lactic Acid Valdemar 3.2 H* (0.7-2.0) mmol/L AST (14-36) U/L 12/03/18 12/03/18 Range/Units 07:31 07:31 WBC 18.4 H (3.8-10.6) k/uL RBC 3.78 L (3.80-5.40) m/uL Hgb 11.2 L (11.4-16.0) gm/dL MCHC 30.4 L (31.0-37.0) g/dL RDW 17.3 H (11.5-15.5) % Neutrophils # (Manual) (1.3-7.7) k/uL Lymphocytes # (Manual) (1.0-4.8) k/uL ABG pH (7.35-7.45) ABG pCO2 (35-45) mmHg ABG pO2 (83-108) mmHg ABG HCO3 (21-25) mmol/L ABG Total CO2 (19-24) mmol/L ABG O2 Saturation (94-97) % Sodium 134 L (137-145) mmol/L Potassium (3.5-5.1) mmol/L Chloride (98-107) mmol/L Carbon Dioxide (22-30) mmol/L BUN 48 H (7-17) mg/dL Glucose 150 H (74-99) mg/dL POC Glucose (mg/dL) (75-99) mg/dL Plasma Lactic Acid Valdemar (0.7-2.0) mmol/L AST (14-36) U/L Assessment and Plan Assessment: 1. Sepsis present on admission related to pneumonia. Chest x-ray completed showing right lower lobe consolidation. Bilateral pleural effusions. Patient admitted to the intensive care unit. Initial lactic acid 2.1. Repeat lactic acid 5. Patient started on vancomycin and Zosyn for IV antibiotics. Blood urine and sputum cultures have been ordered. White blood cell 18.4 2. Hypotension related to above. Patient maintained on Levophed 3. History of non-small cell lung stage III adenocarcinoma 4. History of recent prolonged hospital admission in which she was transferred to [facility]. Patient was on mechanical ventilation for prolonged time requiring tracheostomy 5. Acute on chronic respiratory failure. Does have tracheostomy in place currently on mechanical ventilation 6. Bilateral pleural effusions. Pulmonary services have been consulted 7. History of COPD 8. History of CVA 9. History of osteoarthritis 10. History of hyperlipidemia 11. History of fibromyalgia 12. History of depression 13. Ex-smoker. Patient is smoking history of half-pack per day for 30 years DVT prophylaxis heparin. GI prophylaxis Protonix Time with Patient: Greater than 30 (Greater than 60% of the total time spent in counseling and coordination of care. I performed an examination of the patient and discussed their management with the Nurse Practitioner. I have reviewed the Nurse Practitioner's notes and agree with the documented findings and plan of care)
[2018-12-03 10:10] LABS: ABG Base Excess -0.4 mmol/L; ABG HCO3 26 mmol/L (21-25); ABG PCO2 53 mmHg (35-45); ABG PO2 74 mmHg (83-108); ABG TCO2 28 mmol/L (19-24)
--- NOTE | 2018-12-03 10:27 | XR ---
EXAMINATION TYPE: XR chest 1V DATE OF EXAM: 12/03/2018 COMPARISON: 12/02/2018 INDICATION: Pneumonia TECHNIQUE: Single frontal view of the chest is obtained. FINDINGS: The heart size is normal. The pulmonary vasculature is normal. Right lower lobe infiltrate is present. Correlate for pneumonia. Tracheostomy tube is in the midline. There may be some diminished left pleural effusion IMPRESSION: 1. Right lower lobe infiltrate. Correlate for pneumonia. 2. Improving left pleural effusion
[2018-12-03 10:41] LABS: Band Neutrophils % 25 %; Lymphocytes # (M) 0.74 k/uL (1.0-4.8); Metamyelocytes # (M) 0.92 k/uL (0); Metamyelocytes % 5 %; Myelocytes # (M) 0.18 k/uL (0); Myelocytes % 1 %; Neutrophils % (M) 61 %; Nucleated Red Blood Cells 0 /100 WBC (0-0); Total Cells Counted 200
[2018-12-03 10:42] LABS: Poikilocytosis (M) Present
[2018-12-03] MEDS ORDERED: LEVOTHYROXINE 25 MCG TAB PO SCH (11:00)
[2018-12-03 12:02] LABS: Glucose,Whole Blood 153 mg/dL (75-99)
--- NOTE | 2018-12-03 12:43 | P.CNPUL ---
History of Present Illness Consult date: 12/03/18 Chief complaint: Respiratory failure, pneumonia History of present illness: This is a very pleasant 63-year-old female patient who follows with Dr. Benoit as her primary care physician. She has a history of CVA/TIA, fibromyalgia, gastroesophageal reflux disease, hyperlipidemia, hypothyroidism, chronic back pain, depression. She also has a history of chronic tobacco dependence, oxygen dependent chronic obstructive pulmonary disease with an FEV1 value of 56% of predicted, and non-small cell lung cancer stage III adenocarcinoma. She follows with Dr. Fan in our office. This was diagnosed by an FNA of a left upper lobe lesion by IR in November 2016. She had received concurrent chemoradiation with subsequent additional chemotherapy and then placed on maintenance mmunotherapy of Imfinzi back in December 2017. Her last PET scan in March 2018 revealed continued left upper lobe mass with irregular margins extending to the pleural surface, spiculated appearance but was stable compared to previous and October 2017. The SUV value was only 1.7. Subsequent computed tomography scan of the chest in July 2018 revealed a stable and slightly smaller spiculated mass of the left upper lobe measuring 2.5 x 2.4 cm versus 3.0 x 2.6 previous. No evidence of recurrence or metastasis. The patient was in the hospital back in early September 2018 and she was having ongoing issues with nausea vomiting profound weakness and fatigue. She decided to stop taking the immunotherapy. She had been treated for his COPD exacerbation 08/22/[address] office [address] Dr. Fan where she received steroids and Bactrim. She did improve for the first week or so. She presented to the emergency room yesterday with complaints of increasing shortness of breath cough and congestion. She did have some lower extremity edema. She was still quite weak and fatigued. ome dyspnea on exertion. The patient was discharged home on 09/17/2018 as the patient shortness of breath improved and the patient recovered from her acute COPD exacerbation and she was discharged home on her usual routine medications which included also morphine sulfate 30 mg by mouth twice a day Percocet 04/11/2025 every 6 hours and a when necessary basis. In terms of her lung medication she was maintained on a combination of Symbicort and Incruse. She is also on Synthroid 25 g by mouth d aily. She was given Lasix to be taken on an as needed basis. The patient subsequently came back to our hospital on 09/29/2018 because of altered mental status. According to the family the patient was acting weird. She was acting unusual and she was confused. She was also very weak and she was having episodes of fall. I do see a bruise over her forehead. The family told that she did not have any active had trauma. No seizure activity. No neck stiffness. No documented fever. She was thrashing significantly yesterday. A CAT scan of the head was done that showed no acute process. CAT scan of abdomen and pelvis was done that showed urinary bladder distention along with extensive colonic stool. The patient's ammonia level was at 28. Urine and blood cultures were ordered. The influenza screen was negative. She did not have any neck stiffness. No fever. She was at times morning. Other times she would open up her eyes and follows some simple commands. I was told that this is an improvement in her condition compared to yesterday. She was able to follow some simple commands however she has not been consistent in following orders. His speech is minimal and the patient may safely worse. She denies being in pain. Urine toxin was ordered. She was given a dose of Narcan here in the ICU without much improvement. Based on all this, I intubated the patient at that time and moved to the intensive care unit. Lumbar puncture was done and was negative and assess the causes for this patient altered mental status was not established. The patient was chest at [facility]. She underwent prolonged hospitalization during which she required intubation mechanical ventilation tracheostomy tube insertion PEG tube insertion and following that the patient was discharged to [facility] where she was undergoing rehabilitation. It seems that the patient regained her mentation and she was communicating well. I'm not sure of the details of her presentation at [facility] The patient came in yesterday to the burst department complaining of worsening shortness of breath. Note that the patient has a tracheostomy tube in place. She was quite weak and hypotensive and lethargic. In the burst department the patient was found to have bilateral lower lobe consolidation pleural effusions. White cell count was at 10.9. Lactic acid level was at 2.1. Blood pressure was quite low. The patient was given IV fluids and the patient was started on p ressors. She was also started on a combination of Zosyn and vancomycin as dosed antibiotics for pneumonia. Blood cultures of been sent. Sputum cultures of been sent. The patient subsequently was attached to mechanical ventilator. Currently, the patient is mechanically ventilated. The patient is an assist- control mode of ventilation. The patient is an FiO2 of 60% with a tidal volume of 350 the respiratory rate of 18 and 5 of PEEP. The patient's blood gases showed a pH of 7.3 with a pCO2 of 53 and pO2 of 74. The patient received IV fluids and currently she is on levo fed running at 0.2 g per KG per minute. Her white cell count is 1 is at 18.4. Despite all this, she is arousable. He is following simple commands. She is not requiring any sedation. She is currently in normal sinus rhythm. She had a triple lumen catheter in her right femoral vein. Denies having any chest pain. Her lactic acid level dropped from 2.1 down to 1.5. Review of Systems EYES: Denies change in vision. EARS, NOSE, MOUTH, THROAT: Denies headaches, denies sore throat. CARDIOVASCULAR: Denies chest pain, palpitations or syncopal episodes. RESPIRATORY: Positive for shortness of breath, cough, congestion without hemoptysis. The patient is currently on a mechanical ventilator. No signs of any significant respiratory distress. GASTROINTESTINAL: Denies change in appetite, denies abdominal pain GENITOURINARY: Denies hematuria, denies infections. MUSKULOSKELETAL: Positive for muscle fatigue and weakness, generalized malaise INTEGUMENTARY: Denies rash, denies eczema. NEUROLOGICAL: It seems that the patient has recovered her mentation and the patient is currently following commands while her being a mechanical ventilator. Note that she is quite septic on pressors and a fall neurologic assessment cannot be done. She is moving all 4 extremities upon demand. No focal neurological deficit at this point in time. She had been having generalized weakness. PSYCHIATRIC: Positive for depression. HEMATOLOGIC/LYMPHATIC: Denies anemia, denies enlarged lymph nodes. Oncologic the patient has non-small cell lung cancer which is being treated. Past Medical History Past Medical History: Cancer, COPD, CVA/TIA, Fibromyalgia, GERD/Reflux, Hyperlipidemia, Osteoarthritis (OA), Pneumonia Additional Past Medical History / Comment(s): Non-small cell lung cancer stage 3 adenocarcinoma, COPD, fibromyalgia, acid reflux, hyperlipidemia, osteoarthritis, 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 Past Anesthesia/Blood Transfusion Reactions: No Reported Reaction Smoking Status: Former smoker - Past Family History Mother Family Medical History: Cancer Father Family Medical History: Cancer Medications and Allergies Home Medications Medication Instructions Recorded Confirmed Type Furosemide [Lasix] 40 mg PO DAILY@0900 09/13/18 12/02/18 History Levothyroxine Sodium [Synthroid] 25 mcg PO DAILY@1100 09/13/18 12/02/18 History LORazepam [Ativan] 0.5 mg PO Q6H PRN 09/28/18 12/02/18 History Acetaminophen [Tylenol Arthritis] 650 mg PO Q6H PRN 12/02/18 12/02/18 History Amiodarone [Cordarone] 200 mg PO DAILY@89912/02/18 12/02/18 History Budesonide [Pulmicort] 1 mg INHALATION RT-BID@09,209912/02/18 12/02/18 History Chlorhexidine Gluconate [Periogard] 15 ml PO BID@0900,209912/02/18 12/02/18 History Lactulose 20 gm PO Q8H PRN 12/02/18 12/02/18 History Levalbuterol Nebulized [Xopenex 1.25 mg INHALATION RT-Q6H 12/02/18 12/02/18 History Nebulized] Levothyroxine Sodium [Synthroid] 50 mcg PO DAILY@59912/02/18 12/02/18 History Lisinopril [Zestril] 10 mg PO DAILY@89912/02/18 12/02/18 History Ondansetron [Zofran ODT] 4 mg PO Q6H PRN 12/02/18 12/02/18 History Pantoprazole Sodium [Protonix] 40 mg PO DAILY@59912/02/18 12/02/18 History Polyethylene Glycol 3350 [Miralax] 17 gm PO DAILY PRN 12/02/18 12/02/18 History QUEtiapine FUMARATE 50 mg PO BID@0900,209912/02/18 12/02/18 History Sennosides/Docusate Sodium 2 tab PO BID@0900,2100 12/02/18 12/02/18 History [Senna-S Laxative Tablet] Simethicone 80 mg PO DAILY PRN 12/02/18 12/02/18 History hydrALAZINE HCL 25 mg PO TID@0600,1400,2200 12/02/18 12/02/18 History oxyCODONE ER [OxyCONTIN] 10 mg PO BID@0900,2100 12/02/18 12/02/18 History oxyCODONE HCL [oxyCODONE HCL (IR)] 10 mg PO Q4H PRN 12/03/18 12/03/18 History Allergies Allergy/AdvReac Type Severity Reaction Status Date / Time No Known Allergies Allergy Verified 12/02/18 22:43 Physical Exam Vitals: Vital Signs Temp Pulse Pulse Resp BP Pulse Ox 12/03/18 11:11 99.7 F H 74 16 95 12/03/18 11:00 74 8 L 109/63 89 L 12/03/18 10:15 76 8 L 122/62 95 12/03/18 10:00 72 20 105/45 96 12/03/18 09:45 75 19 87/46 96 12/03/18 09:30 78 18 115/51 95 12/03/18 09:15 98.5 F 73 19 115/47 97 12/03/18 09:00 68 17 85/35 97 12/03/18 08:45 74 18 110/49 95 12/03/18 08:30 67 18 91/45 98 12/03/18 08:15 71 18 78/42 98 12/03/18 08:00 98.5 F 75 19 107/54 97 12/03/18 07:45 73 20 102/49 98 12/03/18 07:30 72 18 102/50 98 12/03/18 07:15 73 18 98/48 98 12/03/18 07:00 77 18 92/49 98 12/03/18 06:45 80 18 90/44 98 12/03/18 06:30 85 18 105/58 98 12/03/18 06:24 85 18 99 12/03/18 06:11 81 18 107/54 100 12/03/18 05:51 81 18 104/52 100 12/03/18 05:30 80 19 107/51 100 05/27/19 05:15 79 18 106/53 100 12/03/18 05:00 80 18 104/55 100 12/03/18 04:45 80 18 105/57 100 12/03/18 04:30 80 19 109/53 100 12/03/18 04:15 76 18 95/47 100 12/03/18 04:00 79 18 90/49 100 12/03/18 03:45 80 18 90/47 100 12/03/18 03:30 79 10 L 80/38 94 L 12/03/18 03:00 78 17 81/52 99 12/03/18 02:45 80 18 98/54 94 L 12/03/18 02:30 81 19 90/58 99 12/03/18 02:15 84 14 90/58 96 12/03/18 02:03 89 14 79/40 100 12/03/18 02:00 89 17 65/39 100 12/03/18 01:40 86 14 86/75 86 L 12/03/18 01:30 88 24 77/37 85 L 12/03/18 01:10 90 32 H 80/32 86 L 12/03/18 01:00 93 32 H 77/44 86 L 12/03/18 00:50 92 31 H 77/44 88 L 12/03/18 00:30 90 38 H 96/45 85 L 12/03/18 00:15 91 24 96/45 92 L 12/03/18 00:00 91 21 95/35 79 L 12/02/18 23:44 81 26 H 86/49 95 12/02/18 23:40 87 29 H 86/49 92 L 12/02/18 23:30 93 31 H 79/68 91 L 12/02/18 23:00 84 28 H 84/54 94 L 12/02/18 22:30 90 30 H 86/50 87 L 12/02/18 21:55 98.2 F 92 19 96/47 89 L Intake and Output 12/02/18 12/03/18 12/03/18 22:59 06:59 14:59 Intake Total 105.973 9104.87 Output Total 800 365 Balance -722.819 3696.87 Intake: IV 500 Sodium Chloride 0.9% 1, 500 000 ml @ 125 mls/hr IV . Q8H [facility] Rx#:[id number] Intake, IV Titration 254.000 911.87 Amount Norepinephrine 4 mg In 254.000 411.87 Sodium Chloride 0.9% 250 ml @ 0.05 MCG/KG/MIN 15. 554 mls/hr IV .[id number] [facility] Rx#:[id number] Sodium Chloride 0.9% 500 500 ml 500 ml @ 1000 mls/hr IV Q35M [facility] Rx#:[id number] Output: Urine 800 365 Other: Voiding Method Indwelling Catheter Indwelling Catheter Weight 81.647 kg 55.7 kg Gen. appearance the patient is quite restless in bed. However, she does not seem to be in acute respiratory distress. She is attached to mechanical ventilator. Head exam was generally normal. There was no scleral icterus or corneal arcus. Mucous membranes were moist. Neck was supple and without jugular venous distension, thyromegaly, or carotid bruits. Carotids were easily palpable bilaterally. There was no adenopathy. The patient has a tracheostomy tube in place. The exit site is dry clean and intact. Lungs were clear to auscultation and percussion, and with normal diaphragmatic excursion. No wheezes or rales were noted. There is some few scattered expiratory wheezes throughout the lung amezcua bilaterally. Heart sounds are tachycardic, normal S1-S2,Cardiac exam revealed the PMI to be normally situated and sized. The rhythm was regular and no extrasystoles were noted during several minutes of auscultation. The first and second heart sounds were normal and physiologic splitting of the second heart sound was noted. There were no murmurs, rubs, clicks, or gallops. Abdominal exam revealed normal bowel sounds. The abdomen was soft, non-tender, and without masses, organomegaly, or appreciable enlargement of the abdominal aorta. Examination of the extremities revealed easily palpable radial, femoral and pedal pulses. There was no cyanosis, clubbing or edema. Examination of the skin revealed no evidence of significant rashes, suspicious appearing nevi or other concerning lesions. Neurologically, the patient is able to sense painful stimulation she is withdrawing her extremities all 4 without any limitation from painful stimulation. No Babinski. No clonus. No facial asymmetry. Pupils around 5 mm in size and they're reactive to light. No nystagmus. She is following commands at this point in time. Results - Laboratory Findings CBC and BMP: 12/03/18 07:31 12/03/18 07:31 ABG ABG pH 7.30 (7.35-7.45) L 12/03/18 10:08 ABG pCO2 53 mmHg (35-45) H 12/03/18 10:08 ABG pO2 74 mmHg (83-108) L 12/03/18 10:08 ABG O2 Saturation 95.0 % (94-97) 12/03/18 10:08 PT/INR, D-dimer PT 9.6 sec (9.0-12.0) 12/02/18 22:17 INR 0.9 (<1.2) 12/02/18 22:17 Abnormal lab findings: Abnormal Labs 12/02/18 12/02/18 12/02/18 22:17 22:17 22:17 WBC 10.9 H RBC Hgb MCHC RDW 17.1 H Neutrophils # (Manual) 10.20 H Lymphocytes # (Manual) 0.22 L Monocytes # (Manual) Metamyelocytes # (Man) Myelocytes # (Manual) ABG pH ABG pCO2 ABG pO2 ABG HCO3 ABG Total CO2 ABG O2 Saturation Sodium 130 L Potassium 5.4 H Chloride 94 L Carbon Dioxide 31 H BUN 50 H Glucose 169 H POC Glucose (mg/dL) Plasma Lactic Acid Valdemar 2.1 H* AST 40 H 12/03/18 12/03/18 12/03/18 02:22 02:45 06:40 WBC RBC Hgb MCHC RDW Neutrophils # (Manual) Lymphocytes # (Manual) Monocytes # (Manual) Metamyelocytes # (Man) Myelocytes # (Manual) ABG pH 7.30 L ABG pCO2 57 H ABG pO2 172 H ABG HCO3 28 H ABG Total CO2 30 H ABG O2 Saturation 99.6 H Sodium Potassium Chloride Carbon Dioxide BUN Glucose POC Glucose (mg/dL) 152 H Plasma Lactic Acid Valdemar 3.2 H* AST 12/03/18 12/03/18 12/03/18 07:31 07:31 10:08 WBC 18.4 H RBC 3.78 L Hgb 11.2 L MCHC 30.4 L RDW 17.3 H Neutrophils # (Manual) 15.80 H Lymphocytes # (Manual) 0.74 L Monocytes # (Manual) 1.10 H Metamyelocytes # (Man) 0.92 H Myelocytes # (Manual) 0.18 H ABG pH 7.30 L ABG pCO2 53 H ABG pO2 74 L ABG HCO3 26 H ABG Total CO2 28 H ABG O2 Saturation Sodium 134 L Potassium Chloride Carbon Dioxide BUN 48 H Glucose 150 H POC Glucose (mg/dL) Plasma Lactic Acid Valdemar AST 12/03/18 11:59 WBC RBC Hgb MCHC RDW Neutrophils # (Manual) Lymphocytes # (Manual) Monocytes # (Manual) Metamyelocytes # (Man) Myelocytes # (Manual) ABG pH ABG pCO2 ABG pO2 ABG HCO3 ABG Total CO2 ABG O2 Saturation Sodium Potassium Chloride Carbon Dioxide BUN Glucose POC Glucose (mg/dL) 153 H Plasma Lactic Acid Valdemar AST - Diagnostic Findings Chest x-ray: image reviewed Assessment and Plan Plan: 1 bilateral pneumonia with secondary sepsis. Consider hospital-acquired pathogens knowing that this patient had a prolonged hospitalization at [facility] and she was further recuperate at [facility]. The taylor ent has bilateral lower lobe consolidation of right more than left and currently she is septic, hypotensive and placed back on a mechanical ventilator 2 septic shock secondary to above currently on pressors. The patient is also being resuscitated IV fluids 3 prolonged mechanical ventilator due to altered mentation back in September 2018, with subsequent recovered and the patient currently has a tracheostomy tube in place in addition to PEG tube feeding for enteral feeding and nutritional support 4 stage IV non-small cell lung cancer post-chemoradiation therapy and the patient was receiving immunotherapy prior to these complications 5 acute leukocytosis secondary to above 6 acute lactic acidosis secondary to above him a improving 7 COPD 8 hypertension, history of 9 hyperlipidemia 10 fibromyalgia/rthritis/chronic back pain 11 depression Plan Obtain sputum Gram stain and culture. Obtain blood culture. Continue Zosyn and vancomycin. Continue vent support for now. Blood gases was noted. Chest x-ray was noted. Continue IV fluids and the patient is currently receiving normal state rate of 125 mL an hour. Wean off pressors. The patient has a triple- lumen catheter and an arterial line catheter will be also inserted. May need to restart enteral feeding for nutritional support with the next 24 hours. Heparin subcu for DVT prophylaxis. IV Protonix. We'll continue to follow. Will request records from [facility] regarding her previous hospitalization. Condition is critical. This evaluation was done and more than 30 minutes excluding time to do any procedures.
[2018-12-03] MEDS: INSULIN ASPART (NovoLOG) 100 UNIT/ML VIAL SQ SCH ×3 (13:01→21:30)
[2018-12-03] MEDS: CHLORHEXIDINE GLUCONATE 15 ML CUP MUCOUS MEM SCH ×2 (13:01→21:31)
[2018-12-03] MEDS ORDERED: hydrALAZINE HCL 25 MG TAB PO SCH (14:00)
[2018-12-03] MEDS: ALBUTEROL NEBULIZED 2.5 MG/3 ML INHALATION SCH ×2 (16:11→19:50)
[2018-12-03 16:58] LABS: Glucose,Whole Blood 61 mg/dL (75-99)
[2018-12-03] MEDS ORDERED: DEXTROSE 50% SYRINGE 50 ML IVP STA (17:21)
[2018-12-03 18:36] LABS: Glucose,Whole Blood 97 mg/dL (75-99)
[2018-12-03] MEDS: BUDESONIDE 1 MG/2 ML NEBU INHALATION SCH (19:52)
[2018-12-03 20:59] LABS: Glucose,Whole Blood 69 mg/dL (75-99)
[2018-12-03] MEDS ORDERED: VANCOMYCIN 1,500 MG in SODIUM CHLORIDE 0.9% 250 ML IVPB SCH (21:00)
[2018-12-03] MEDS: oxyCODONE ER 10 MG TAB.ER.12H PO SCH (21:29)
[2018-12-03] MEDS: SENNOSIDES-DOCUSATE SODIUM 1 EACH TAB PO SCH (21:30)
[2018-12-03] MEDS: QUEtiapine 50 MG TAB PO SCH (21:30)
--- NOTE | 2018-12-03 22:19 | P.CONS ---
History of Present Illness - Reason for Consult Consult date: 12/03/18 Pneumonia Requesting physician: Glenys Chang - Chief Complaint Shortness of breath and cough x 1 day - History of Present Illness Patient is a 63-year-old female who recently did have a prolonged stay at [facility] after the patient was transferred from this facility because of mental status changes while there the patient did have respiratory failure requiring mechanical ventilation subsequently ended up getting a trach and PEG after which the patient was [facility] and just recently [facility] about [facility], the patient has been brought back to this facility with increasing shortness of breath apparently started after the patient walked around the hallway with an empty oxygen tank and took a long time for replacement of that supplemental oxygen for this sister who provided most of the history is still having decreasing shortness of breath she did have a cough with some occasional sputum production no significant chest pain no nausea no vomiting the patient had did have a PEG tube currently not be used as patient unable treat herself without any difficulty or any choking on the food with the symptoms the patient was brought to the [facility] ER with the patient was evaluated by the physician patient reports to be hypertensive did have a low-grade fever initially when it was not that activity subsequent up to 18,000 chest x-ray with evidence of right lower lobe pneumonia patient did receive a dose of Zosyn in the ER and vancomycin vancomycin was continued and infectious disease was consulted for further recommendation regarding antibiotic therapy Review of Systems Positive points has been mentioned in HPI rest of the systems negative Past Medical History Past Medical History: Cancer, COPD, CVA/TIA, Fibromyalgia, GERD/Reflux, Hyperlipidemia, Osteoarthritis (OA), Pneumonia Additional Past Medical History / Comment(s): Non-small cell lung cancer stage 3 adenocarcinoma, COPD, fibromyalgia, acid reflux, hyperlipidemia, osteoarthritis, 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 Past Anesthesia/Blood Transfusion Reactions: No Reported Reaction Smoking Status: Former smoker - Past Family History Mother Family Medical History: Cancer Father Family Medical History: Cancer Medications and Allergies Home Medications Medication Instructions Recorded Confirmed Type Furosemide [Lasix] 40 mg PO DAILY@0900 09/13/18 12/02/18 History Levothyroxine Sodium [Synthroid] 25 mcg PO DAILY@1100 09/13/18 12/02/18 History LORazepam [Ativan] 0.5 mg PO Q6H PRN 09/28/18 12/02/18 History Acetaminophen [Tylenol Arthritis] 650 mg PO Q6H PRN 12/02/18 12/02/18 History Amiodarone [Cordarone] 200 mg PO DAILY@0900 12/02/18 12/02/18 History Budesonide [Pulmicort] 1 mg INHALATION RT-BID@0900,209912/02/18 12/02/18 History Chlorhexidine Gluconate [Periogard] 15 ml PO BID@0900,209912/02/18 12/02/18 History Lactulose 20 gm PO Q8H PRN 12/02/18 12/02/18 History Levalbuterol Nebulized [Xopenex 1.25 mg INHALATION RT-Q6H 12/02/18 12/02/18 History Nebulized] Levothyroxine Sodium [Synthroid] 50 mcg PO DAILY@0600 12/02/18 12/02/18 History Lisinopril [Zestril] 10 mg PO DAILY@0900 12/02/18 12/02/18 History Ondansetron [Zofran ODT] 4 mg PO Q6H PRN 12/02/18 12/02/18 History Pantoprazole Sodium [Protonix] 40 mg PO DAILY@0600 12/02/18 12/02/18 History Polyethylene Glycol 3350 [Miralax] 17 gm PO DAILY PRN 12/02/18 12/02/18 History QUEtiapine FUMARATE 50 mg PO BID@0900,209912/02/18 12/02/18 History Sennosides/Docusate Sodium 2 tab PO BID@0900,209912/02/18 12/02/18 History [Senna-S Laxative Tablet] Simethicone 80 mg PO DAILY PRN 12/02/18 12/02/18 History hydrALAZINE HCL 25 mg PO TID@0600,1400,2200 12/02/18 12/02/18 History oxyCODONE ER [OxyCONTIN] 10 mg PO BID@0900,2099 12/02/18 12/02/18 History oxyCODONE HCL [oxyCODONE HCL (IR)] 10 mg PO Q4H PRN 12/03/18 12/03/18 History Allergies Allergy/AdvReac Type Severity Reaction Status Date / Time No Known Allergies Allergy Verified 12/02/18 22:43 Physical Exam Vitals: Vital Signs Temp Pulse Pulse Resp BP Pulse Ox 12/03/18 14:00 74 19 116/62 94 L 12/03/18 13:00 68 18 108/57 97 12/03/18 12:00 98.5 F 73 22 100/68 95 12/03/18 11:11 99.7 F H 74 16 95 12/03/18 11:00 74 8 L 109/63 89 L 12/03/18 10:15 76 19 122/62 95 12/03/18 10:00 72 20 105/45 96 12/03/18 09:45 75 19 87/46 96 12/03/18 09:30 78 18 115/51 95 12/03/18 09:15 98.5 F 73 19 115/47 97 12/03/18 09:00 68 17 85/35 97 12/03/18 08:45 74 18 110/49 95 12/03/18 08:30 67 18 91/45 98 12/03/18 08:15 71 18 78/42 98 12/03/18 08:00 98.5 F 75 23 107/54 97 12/03/18 07:45 73 20 102/49 98 12/03/18 07:30 72 18 102/50 98 12/03/18 07:15 73 18 98/48 98 12/03/18 07:00 77 18 92/49 98 12/03/18 06:45 80 18 90/44 98 12/03/18 06:30 85 18 105/58 98 12/03/18 06:24 85 18 99 12/03/18 06:11 81 18 107/54 100 12/03/18 05:51 81 18 104/52 100 12/03/18 05:30 80 19 107/51 100 12/03/18 05:15 79 18 106/53 100 12/03/18 05:00 80 18 104/55 100 12/03/18 04:45 80 18 105/57 100 12/03/18 04:30 80 19 109/53 100 12/03/18 04:15 76 18 95/47 100 12/03/18 04:00 79 18 90/49 100 12/03/18 03:45 80 18 90/47 100 12/03/18 03:30 79 10 L 80/38 94 L 12/03/18 03:00 78 17 81/52 99 12/03/18 02:45 80 18 98/54 94 L 12/03/18 02:30 81 19 90/58 99 12/03/18 02:15 84 14 90/58 96 12/03/18 02:03 89 14 79/40 100 12/03/18 02:00 89 17 65/39 100 12/03/18 01:40 86 14 86/75 86 L 12/03/18 01:30 88 24 77/37 85 L 12/03/18 01:10 90 32 H 80/32 86 L 12/03/18 01:00 93 32 H 77/44 86 L 12/03/18 00:50 92 31 H 77/44 88 L 12/03/18 00:30 90 38 H 96/45 85 L 12/03/18 00:15 91 24 96/45 92 L 12/03/18 00:00 91 21 95/35 79 L 12/02/18 23:44 81 26 H 86/49 95 12/02/18 23:40 87 29 H 86/49 92 L 12/02/18 23:30 93 31 H 79/68 91 L 12/02/18 23:00 84 28 H 84/54 94 L 12/02/18 22:30 90 30 H 86/50 87 L 12/02/18 21:55 98.2 F 92 19 96/47 89 L Intake and Output 12/02/18 12/03/18 12/03/18 22:59 06:59 14:59 Intake Total 267.429 7847.53 Output Total 800 860 Balance -935.477 9311.53 Intake: IV 1000 Sodium Chloride 0.9% 1, 1000 000 ml @ 125 mls/hr IV . Q8H [facility] Rx#:[id number] Intake, IV Titration 518.573 4029.53 Amount Norepinephrine 4 mg In 254.000 726.53 Sodium Chloride 0.9% 250 ml @ 0.05 MCG/KG/MIN 15. 554 mls/hr IV .[id number] [facility] Rx#:[id number] Sodium Chloride 0.9% 500 500 ml 500 ml @ 1000 mls/hr IV Q35M [facility] Rx#:[id number] Output: Urine 800 860 Other: Voiding Method Indwelling Catheter Indwelling Catheter Weight 81.647 kg 55.7 kg GENERAL DESCRIPTION: An elderly female lying in bed, no distress. No tachypnea or accessory muscle of respiration use. HEENT: Shows Pallor , no scleral icterus. Oral mucous membrane is dry. No pharyngeal erythema or thrush NECK: Patient is intubated to the trach LUNGS: Unlabored breathing. Decreased breath sound at the base. No wheeze or crackle. HEART: S1, S2, regular rate and rhythm. No loud murmur ABDOMEN: Soft, no tenderness , guarding or rigidity, no organomegaly EXTREMITIES: No edema of feet. SKIN: No rash, no masses palpable. NEUROLOGICAL: The patient is awake, alert, oriented x3, mood and affect normal Results CBC & Chem 7: 12/03/18 07:31 12/03/18 07:31 Labs: Abnormal Lab Results - Last 24 Hours (Table) 12/02/18 12/02/18 12/02/18 Range/Units 22:17 22:17 22:17 WBC 10.9 H (3.8-10.6) k/uL RBC (3.80-5.40) m/uL Hgb (11.4-16.0) gm/dL MCHC (31.0-37.0) g/dL RDW 17.1 H (11.5-15.5) % Neutrophils # (Manual) 10.20 H (1.3-7.7) k/uL Lymphocytes # (Manual) 0.22 L (1.0-4.8) k/uL Monocytes # (Manual) (0-1.0) k/uL Metamyelocytes # (Man) (0) k/uL Myelocytes # (Manual) (0) k/uL ABG pH (7.35-7.45) ABG pCO2 (35-45) mmHg ABG pO2 (83-108) mmHg ABG HCO3 (21-25) mmol/L ABG Total CO2 (19-24) mmol/L ABG O2 Saturation (94-97) % Sodium 130 L (137-145) mmol/L Potassium 5.4 H (3.5-5.1) mmol/L Chloride 94 L (98-107) mmol/L Carbon Dioxide 31 H (22-30) mmol/L BUN 50 H (7-17) mg/dL Glucose 169 H (74-99) mg/dL POC Glucose (mg/dL) (75-99) mg/dL Plasma Lactic Acid Valdemar 2.1 H* (0.7-2.0) mmol/L AST 40 H (14-36) U/L 12/03/18 12/03/18 12/03/18 Range/Units 02:22 02:45 06:40 WBC (3.8-10.6) k/uL RBC (3.80-5.40) m/uL Hgb (11.4-16.0) gm/dL MCHC (31.0-37.0) g/dL RDW (11.5-15.5) % Neutrophils # (Manual) (1.3-7.7) k/uL Lymphocytes # (Manual) (1.0-4.8) k/uL Monocytes # (Manual) (0-1.0) k/uL Metamyelocytes # (Man) (0) k/uL Myelocytes # (Manual) (0) k/uL ABG pH 7.30 L (7.35-7.45) ABG pCO2 57 H (35-45) mmHg ABG pO2 172 H (83-108) mmHg ABG HCO3 28 H (21-25) mmol/L ABG Total CO2 30 H (19-24) mmol/L ABG O2 Saturation 99.6 H (94-97) % Sodium (137-145) mmol/L Potassium (3.5-5.1) mmol/L Chloride (98-107) mmol/L Carbon Dioxide (22-30) mmol/L BUN (7-17) mg/dL Glucose (74-99) mg/dL POC Glucose (mg/dL) 152 H (75-99) mg/dL Plasma Lactic Acid Valdemar 3.2 H* (0.7-2.0) mmol/L AST (14-36) U/L 12/03/18 12/03/18 12/03/18 Range/Units 07:31 07:31 10:08 WBC 18.4 H (3.8-10.6) k/uL RBC 3.78 L (3.80-5.40) m/uL Hgb 11.2 L (11.4-16.0) gm/dL MCHC 30.4 L (31.0-37.0) g/dL RDW 17.3 H (11.5-15.5) % Neutrophils # (Manual) 15.80 H (1.3-7.7) k/uL Lymphocytes # (Manual) 0.74 L (1.0-4.8) k/uL Monocytes # (Manual) 1.10 H (0-1.0) k/uL Metamyelocytes # (Man) 0.92 H (0) k/uL Myelocytes # (Manual) 0.18 H (0) k/uL ABG pH 7.30 L (7.35-7.45) ABG pCO2 53 H (35-45) mmHg ABG pO2 74 L (83-108) mmHg ABG HCO3 26 H (21-25) mmol/L ABG Total CO2 28 H (19-24) mmol/L ABG O2 Saturation (94-97) % Sodium 134 L (137-145) mmol/L Potassium (3.5-5.1) mmol/L Chloride (98-107) mmol/L Carbon Dioxide (22-30) mmol/L BUN 48 H (7-17) mg/dL Glucose 150 H (74-99) mg/dL POC Glucose (mg/dL) (75-99) mg/dL Plasma Lactic Acid Valdemar (0.7-2.0) mmol/L AST (14-36) U/L 12/03/18 Range/Units 11:59 WBC (3.8-10.6) k/uL RBC (3.80-5.40) m/uL Hgb (11.4-16.0) gm/dL MCHC (31.0-37.0) g/dL RDW (11.5-15.5) % Neutrophils # (Manual) (1.3-7.7) k/uL Lymphocytes # (Manual) (1.0-4.8) k/uL Monocytes # (Manual) (0-1.0) k/uL Metamyelocytes # (Man) (0) k/uL Myelocytes # (Manual) (0) k/uL ABG pH (7.35-7.45) ABG pCO2 (35-45) mmHg ABG pO2 (83-108) mmHg ABG HCO3 (21-25) mmol/L ABG Total CO2 (19-24) mmol/L ABG O2 Saturation (94-97) % Sodium (137-145) mmol/L Potassium (3.5-5.1) mmol/L Chloride (98-107) mmol/L Carbon Dioxide (22-30) mmol/L BUN (7-17) mg/dL Glucose (74-99) mg/dL POC Glucose (mg/dL) 153 H (75-99) mg/dL Plasma Lactic Acid Valdemar (0.7-2.0) mmol/L AST (14-36) U/L Microbiology - Last 24 Hours (Table) 12/02/18 23:30 Gram Stain - Preliminary Sputum Sputum Culture - Preliminary 12/03/18 03:05 Urine Culture - Preliminary Urine,Catheterized Assessment and Plan Assessment: 1-patient admitted to hospital with increasing shortness of breath patient also have a cough did have a low-grade fever hypotension and elevated white count with evidence of right lobe pneumonia concern for possible resistant gram- positive or gram-negative pathogen in this patient with recent prolonged hospital stay at [facility] followed by select specialty Plan: 1-blood and sputum culture has been obtained those will be followed 2-vancomycin pharmacy to dose target trough of 15 to continue while watching her kidney function and Vanco trough closely 3-add cefepime 2 g every 12hr to cover for the gram-negative component We will follow on clinical condition and cultures to further adjust medication if needed Thank you for this consultation will follow this patient along with you Time with Patient: Greater than 30
[2018-12-04] MEDS: CEFEPIME 2 GM in SODIUM CHLORIDE 0.9% 100 ML IVPB SCH ×3 (00:32→21:44)
[2018-12-04] MEDS: NOREPINEPHRINE 4 MG in SODIUM CHLORIDE 0.9% 250 ML IV SCH (00:32)
[2018-12-04 00:40] LABS: Glucose,Whole Blood 92 mg/dL (75-99)
[2018-12-04] MEDS: HEPARIN SODIUM,PORCINE 5,000 UNIT/ML 1 ML VIAL SQ SCH ×4 (00:41→23:04)
[2018-12-04] MEDS: ALBUTEROL NEBULIZED 2.5 MG/3 ML INHALATION SCH ×4 (01:47→20:08)
[2018-12-04 04:51] LABS: Glucose,Whole Blood 127 mg/dL (75-99)
[2018-12-04 05:05] LABS: ABG HCO3 26 mmol/L (21-25); ABG Oxygen Saturation 98.2 % (94-97); ABG PCO2 43 mmHg (35-45); ABG PH 7.39 (7.35-7.45); ABG PO2 97 mmHg (83-108); ABG TCO2 27 mmol/L (19-24)
[2018-12-04] MEDS ORDERED: PANTOPRAZOLE 40 MG TABLET PO SCH (06:00)
[2018-12-04 06:19] LABS: ALT 18 U/L (9-52); AST 16 U/L (14-36); Albumin 2.4 g/dL (3.5-5.0); Alkaline Phosphatase 82 U/L (38-126); Anion Gap 1 mmol/L; Blood Urea Nitrogen 19 mg/dL (7-17); Calcium 8.6 mg/dL (8.4-10.2); Carbon Dioxide 26 mmol/L (22-30); Chloride 109 mmol/L (98-107); Glucose 126 mg/dL (74-99); Magnesium 1.7 mg/dL (1.6-2.3); Phosphorus 2.1 mg/dL (2.5-4.5); Potassium 3.7 mmol/L (3.5-5.1); Sodium 136 mmol/L (137-145); Total Bilirubin 0.4 mg/dL (0.2-1.3); Total Protein 4.9 g/dL (6.3-8.2)
[2018-12-04 06:26] LABS: Anisocytosis Slight; Basophils % (A) 0 %; Eosinophils # (A) 0.1 k/uL (0-0.7); Eosinophils % (A) 1 %; Hypochromasia Moderate; Lymphocytes # (A) 0.4 k/uL (1.0-4.8); Lymphocytes % (A) 2 %; MCH 30.4 pg (25.0-35.0); MCHC 30.8 g/dL (31.0-37.0); MCV 98.7 fL (80.0-100.0); Macrocytosis Slight; Mean Platelet Volume 7.2; Monocytes # (A) 0.4 k/uL (0-1.0); Monocytes % (A) 2 %; Neutrophils # (A) 15.7 k/uL (1.3-7.7); Neutrophils % (A) 94 %; Platelet Count 267 k/uL (150-450); RBC 3.04 m/uL (3.80-5.40); RDW 17.2 % (11.5-15.5); WBC 16.7 k/uL (3.8-10.6)
[2018-12-04] MEDS: LEVOTHYROXINE 50 MCG TAB PO SCH (06:26)
[2018-12-04] MEDS: DEXTROSE 5%-0.9% NACL 1,000 ML IV SCH ×3 (06:29→20:13)
[2018-12-04 06:30] LABS: HGB 9.2 gm/dL (11.4-16.0)
[2018-12-04] MEDS ORDERED: Magnesium Replacement Protocol 1 EACH MISC MISCELLANE PRN (06:51)
[2018-12-04] MEDS ORDERED: Potassium Replacement Protocol 1 EACH MISC MISCELLANE PRN (06:51)
[2018-12-04] MEDS: SODIUM CHLORIDE 0.9% 1,000 ML IV SCH (06:57)
[2018-12-04] MEDS ORDERED: POTASSIUM BICARBONATE/CIT AC 20 MEQ TABLET.EFF NG-TUBE SCH (07:00)
[2018-12-04 07:10] LABS: Glucose,Whole Blood 132 mg/dL (75-99)
[2018-12-04] MEDS ORDERED: Phosphorus Replacement Protoco 1 EACH MISC MISCELLANE PRN (07:36)
[2018-12-04] MEDS: BUDESONIDE 1 MG/2 ML NEBU INHALATION SCH ×2 (07:48→20:08)
[2018-12-04] MEDS: NOREPINEPHRINE 32 MG in SODIUM CHLORIDE 0.9% 218 ML IV SCH (07:49)
[2018-12-04] MEDS ORDERED: POTASSIUM PHOSPHATE 10 MMOL in SODIUM CHLORIDE 0.9% 100 ML IV ONE (08:00)
--- NOTE | 2018-12-04 08:30 | XR ---
EXAMINATION TYPE: XR chest 1V portable DATE OF EXAM: 12/04/2018 CLINICAL HISTORY: Difficulty breathing progress study. TECHNIQUE: Single AP portable upright view of the chest is obtained. COMPARISON: Chest x-ray from one day earlier and older studies. FINDINGS: Tracheostomy tube is redemonstrated. Persistent bibasilar opacities. Cardiac silhouette si ze is stable and within normal limits with atherosclerotic aorta. Background chronic parenchymal christiansen ges. Multilevel spurring in the spine is present. IMPRESSION: Overall stable findings, chronic parenchymal changes with persistent small bilateral pl eural effusions and associated bibasilar atelectasis and/or infiltrate all redemonstrated.
[2018-12-04 08:47] LABS: Glucose,Whole Blood 130 mg/dL (75-99)
[2018-12-04] MEDS: MAGNESIUM SULFATE-D5W PMX 1 GM in DEXTROSE/WATER 1 100ML.BAG IVPB SCH ×2 (09:35→11:40)
[2018-12-04] MEDS: INSULIN ASPART (NovoLOG) 100 UNIT/ML VIAL SQ SCH ×4 (09:35→23:27)
[2018-12-04] MEDS: AMIODARONE 200 MG TAB PO SCH (09:36)
[2018-12-04] MEDS: CHLORHEXIDINE GLUCONATE 15 ML CUP MUCOUS MEM SCH ×2 (09:37→20:05)
[2018-12-04] MEDS: oxyCODONE ER 10 MG TAB.ER.12H PO SCH ×2 (09:37→20:13)
[2018-12-04] MEDS: PANTOPRAZOLE 40 MG/10 ML VIAL IV SCH (09:38)
[2018-12-04] MEDS: QUEtiapine 50 MG TAB PO SCH ×2 (09:38→21:45)
[2018-12-04] MEDS: SENNOSIDES-DOCUSATE SODIUM 1 EACH TAB PO SCH ×2 (09:38→20:04)
--- NOTE | 2018-12-04 10:32 | P.PN ---
Subjective Progress Note Date: 12/04/18 This is a 63-year-old female patient who presented to the hospital with worsening shortness of breath. Patient has a past medical history of recent hospital admission in which she was admitted to [facility] hearing transferred to [facility] which required prolonged intubation and tracheostomy. Patient was recently discharged to recent D/C to [facility] week ago. Patient has had increased sputum production and cough. Patient has past medical history of non- small cell lung cancer stage III, CVA, COPD, GERD, hyperlipidemia, osteoarthritis,chronic back pain and depression. Chest x-ray completed in ER showing right lower lobe consolidation with bilateral pleural effusions. Patient's WBC elevated at 10.9. Patient also have a lactic acid of 2.1. UA negative. Patient's blood pressure low. Patient started on Levophed and transferred to the ICU. Dr. Jackson has been consulted for critical care. Patient started on vancomycin and Zosyn for antibiotic. Blood urine and sputum cultures ordered. At this time patient is on mechanical ventilation resting comfortably in bed. Patient is following commands. On 12/04/2018 patient maintained on mechanical ventilation but awake and alert. Patient remains in intensive care unit on Levophed for pressure support. Patient reports that she feels better. Patient currently on vancomycin and Maxipime for antibiotics. Infectious disease and pulmonary services are following. White Blood cell 16.7. Blood,urine and sputum cultures pending Objective - Vital Signs Vital signs: Vital Signs Temp 98.9 F 12/04/18 06:00 Pulse 76 12/04/18 08:15 Resp 20 12/04/18 08:00 BP 100/54 12/04/18 08:00 Pulse Ox 99 12/04/18 08:00 Intake & Output 12/03/18 12/04/18 12/04/18 18:59 06:59 18:59 Intake Total 2919.87 1879 Output Total 1325 1025 Balance 1594.87 854 Weight 55.7 kg Intake: IV 1500 1625 Sodium Chloride 0.9% 1, 1500 1625 000 ml @ 125 mls/hr IV . Q8H [facility] Rx#:[id number] Intake, IV Titration 1419.87 254 Amount Norepinephrine 4 mg In 919.87 254 Sodium Chloride 0.9% 250 ml @ 0.05 MCG/KG/MIN 15. 554 mls/hr IV .[id number] [facility] Rx#:[id number] Sodium Chloride 0.9% 500 500 ml 500 ml @ 1000 mls/hr IV Q35M [facility] Rx#:[id number] Output: Urine 1325 1025 Other: Voiding Method Indwelling Catheter Indwelling Catheter - Exam Head normocephalic Neck supple. Tracheostomy in place Lungs diminished with bilateral rhonchi. Heart regular rate and rhythm S1-S2, no rub or gallop Abdomen is soft nontender nondistended positive bowel sounds no hepatosplenomegaly. PEG tube in place Extremities no edema Neuro follows commands. On mechanical ventilation - Labs CBC & Chem 7: 12/04/18 05:49 12/04/18 05:49 Labs: Abnormal Lab Results - Last 24 Hours (Table) 12/03/18 12/03/18 12/03/18 Range/Units 07:31 11:59 16:55 WBC (3.8-10.6) k/uL RBC (3.80-5.40) m/uL Hgb (11.4-16.0) gm/dL Hct (34.0-46.0) % MCHC (31.0-37.0) g/dL RDW (11.5-15.5) % Neutrophils # (1.3-7.7) k/uL Neutrophils # (Manual) 15.80 H (1.3-7.7) k/uL Lymphocytes # (1.0-4.8) k/uL Lymphocytes # (Manual) 0.74 L (1.0-4.8) k/uL Monocytes # (Manual) 1.10 H (0-1.0) k/uL Metamyelocytes # (Man) 0.92 H (0) k/uL Myelocytes # (Manual) 0.18 H (0) k/uL ABG HCO3 (21-25) mmol/L ABG Total CO2 (19-24) mmol/L ABG O2 Saturation (94-97) % Sodium (137-145) mmol/L Chloride (98-107) mmol/L BUN (7-17) mg/dL Creatinine (0.52-1.04) mg/dL Glucose (74-99) mg/dL POC Glucose (mg/dL) 153 H 61 L (75-99) mg/dL Phosphorus (2.5-4.5) mg/dL Total Protein (6.3-8.2) g/dL Albumin (3.5-5.0) g/dL 12/03/18 12/04/18 12/04/18 Range/Units 20:44 04:48 05:03 WBC (3.8-10.6) k/uL RBC (3.80-5.40) m/uL Hgb (11.4-16.0) gm/dL Hct (34.0-46.0) % MCHC (31.0-37.0) g/dL RDW (11.5-15.5) % Neutrophils # (1.3-7.7) k/uL Neutrophils # (Manual) (1.3-7.7) k/uL Lymphocytes # (1.0-4.8) k/uL Lymphocytes # (Manual) (1.0-4.8) k/uL Monocytes # (Manual) (0-1.0) k/uL Metamyelocytes # (Man) (0) k/uL Myelocytes # (Manual) (0) k/uL ABG HCO3 26 H (21-25) mmol/L ABG Total CO2 27 H (19-24) mmol/L ABG O2 Saturation 98.2 H (94-97) % Sodium (137-145) mmol/L Chloride (98-107) mmol/L BUN (7-17) mg/dL Creatinine (0.52-1.04) mg/dL Glucose (74-99) mg/dL POC Glucose (mg/dL) 69 L 127 H (75-99) mg/dL Phosphorus (2.5-4.5) mg/dL Total Protein (6.3-8.2) g/dL Albumin (3.5-5.0) g/dL 12/04/18 12/04/18 12/04/18 Range/Units 05:49 05:49 06:57 WBC 16.7 H (3.8-10.6) k/uL RBC 3.04 L (3.80-5.40) m/uL Hgb 9.2 L D (11.4-16.0) gm/dL Hct 30.0 L (34.0-46.0) % MCHC 30.8 L (31.0-37.0) g/dL RDW 17.2 H (11.5-15.5) % Neutrophils # 15.7 H (1.3-7.7) k/uL Neutrophils # (Manual) (1.3-7.7) k/uL Lymphocytes # 0.4 L (1.0-4.8) k/uL Lymphocytes # (Manual) (1.0-4.8) k/uL Monocytes # (Manual) (0-1.0) k/uL Metamyelocytes # (Man) (0) k/uL Myelocytes # (Manual) (0) k/uL ABG HCO3 (21-25) mmol/L ABG Total CO2 (19-24) mmol/L ABG O2 Saturation (94-97) % Sodium 136 L (137-145) mmol/L Chloride 109 H (98-107) mmol/L BUN 19 H (7-17) mg/dL Creatinine 0.37 L (0.52-1.04) mg/dL Glucose 126 H (74-99) mg/dL POC Glucose (mg/dL) 132 H (75-99) mg/dL Phosphorus 2.1 L (2.5-4.5) mg/dL Total Protein 4.9 L (6.3-8.2) g/dL Albumin 2.4 L (3.5-5.0) g/dL 12/04/18 Range/Units 08:44 WBC (3.8-10.6) k/uL RBC (3.80-5.40) m/uL Hgb (11.4-16.0) gm/dL Hct (34.0-46.0) % MCHC (31.0-37.0) g/dL RDW (11.5-15.5) % Neutrophils # (1.3-7.7) k/uL Neutrophils # (Manual) (1.3-7.7) k/uL Lymphocytes # (1.0-4.8) k/uL Lymphocytes # (Manual) (1.0-4.8) k/uL Monocytes # (Manual) (0-1.0) k/uL Metamyelocytes # (Man) (0) k/uL Myelocytes # (Manual) (0) k/uL ABG HCO3 (21-25) mmol/L ABG Total CO2 (19-24) mmol/L ABG O2 Saturation (94-97) % Sodium (137-145) mmol/L Chloride (98-107) mmol/L BUN (7-17) mg/dL Creatinine (0.52-1.04) mg/dL Glucose (74-99) mg/dL POC Glucose (mg/dL) 130 H (75-99) mg/dL Phosphorus (2.5-4.5) mg/dL Total Protein (6.3-8.2) g/dL Albumin (3.5-5.0) g/dL Microbiology - Last 24 Hours (Table) 12/03/18 03:05 Urine Culture - Final Urine,Catheterized 12/02/18 22:52 Blood Culture - Preliminary Blood No Growth after 24 hours 12/03/18 09:30 Gram Stain - Preliminary Sputum Sputum Culture - Preliminary 12/02/18 23:30 Gram Stain - Preliminary Sputum Sputum Culture - Preliminary Assessment and Plan Assessment: 1. Sepsis present on admission related to pneumonia. Chest x-ray completed showing right lower lobe consolidation. Bilateral pleural effusions. Patient admitted to the intensive care unit. Initial lactic acid 2.1. Repeat lactic acid 5. Patient started on vancomycin and Zosyn for IV antibiotics. Blood urine and sputum cultures have been ordered. White blood cell 16.4. Infectious disease following. Patient on cefepime and Vanco 2. Hypotension related to above. Patient maintained on Levophed 3. History of non-small cell lung stage III adenocarcinoma 4. History of recent prolonged hospital admission in which she was transferred to [facility]. Patient was on mechanical ventilation for prolonged time requiring tracheostomy 5. Acute on chronic respiratory failure. Does have tracheostomy in place currently on mechanical ventilation 6. Bilateral pleural effusions. Pulmonary services have been consulted 7. History of COPD 8. History of CVA 9. History of osteoarthritis 10. History of hyperlipidemia 11. History of fibromyalgia 12. History of depression 13. Ex-smoker. Patient is smoking history of half-pack per day for 30 years DVT prophylaxis heparin. GI prophylaxis Protonix I performed an examination of the patient and discussed their management with the Nurse Practitioner. I have reviewed the Nurse Practitioner's notes and agree with the documented findings and plan of care
--- NOTE | 2018-12-04 11:38 | P.PN ---
Subjective Progress Note Date: 12/04/18 Principal diagnosis: Acute sepsis, septic shock, and bilateral pneumonia with sepsis. This is a very pleasant 63-year-old female patient who follows with Dr. Benoit as her primary care physician. She has a history of CVA/TIA, fibromyalgia, gastroesophageal reflux disease, hyperlipidemia, hypothyroidism, chronic back pain, depression. She also has a history of chronic tobacco dependence, oxygen dependent chronic obstructive pulmonary disease with an FEV1 value of 56% of pre dicted, and non-small cell lung cancer stage III adenocarcinoma. She follows with Dr. Fan in our office. This was diagnosed by an FNA of a left upper lobe lesion by IR in November 2016. She had received concurrent chemoradiation with subsequent additional chemotherapy and then placed on maintenance mmunotherapy of Imfinzi back in December 2017. Her last PET scan in March 2018 revealed continued left upper lobe mass with irregular margins extending to the pleural surface, spiculated appearance but was stable compared to previous and October 2017. The SUV value was only 1.7. Subsequent computed tomography scan of the chest in July 2018 revealed a stable and slightly smaller spiculated mass of the left upper lobe measuring 2.5 x 2.4 cm versus 3.0 x 2.6 previous. No evidence of recurrence or metastasis. The patient was in the hospital back in early September 2018 and she was having ongoing issues with nausea vomiting profound weakness and fatigue. She decided to stop taking the immunotherapy. She had been treated for his COPD exacerbation 08/22/[address] in our office by Dr. Fan where she received steroids and Bactrim. She did improve for the first week or so. She presented to the emergency room yesterday with complaints of increasing shortness of breath cough and congestion. She did have some lower extremity edema. She was still quite weak and fatigued. ome dyspnea on exertion. The patient was discharged home on 09/17/2018 as the patient shortness of breath improved and the patient recovered from her acute COPD exacerbation and she was discharged home on her usual routine medications which included also morphine sulfate 30 mg by mouth twice a day Percocet 04/11/2025 every 6 hours and a when necessary basis. In terms of her lung medication she was maintained on a combi nation of Symbicort and Incruse. She is also on Synthroid 25 g by mouth daily. She was given Lasix to be taken on an as needed basis. The patient subsequently came back to our hospital on 09/29/2018 because of altered mental status. According to the family the patient was acting weird. She was acting unusual and she was confused. She was also very weak and she was having episodes of fall. I do see a bruise over her forehead. The family told that she did not have any active had trauma. No seizure activity. No neck stiffness. No documented fever. She was thrashing significantly yesterday. A CAT scan of the head was done that showed no acute process. CAT scan of abdomen and pelvis was done that showed urinary bladder distention along with extensive colonic stool. The patient's ammonia level was at 28. Urine and blood cultures were ordered. The influenza screen was negative. She did not have any neck stiffness. No fever. She was at times morning. Other times she would open up her eyes and follows some simple commands. I was told that this is an improvement in her condition compared to yesterday. She was able to follow some simple commands however she has not been consistent in following orders. His speech is minimal and the patient may safely worse. She denies being in pain. Urine toxin was ordered. She was given a dose of Narcan here in the ICU without much improvement. Based on all this, I intubated the patient at that time and moved to the intensive care unit. Lumbar puncture was done and was negative and assess the causes for this patient altered mental status was not established. The patient was chest at [facility]. She underwent prolonged hospitalization during which she required intubation mechanical ventilation tracheostomy tube insertion PEG tube insertion and following that the patient was discharged to [facility] on the [place] where she was undergoing rehabilitation. It seems that the patient regained her mentation and she was communicating well. I'm not sure of the details of her presentation at [facility] The patient came in yesterday to the burst department complaining of worsening shortness of breath. Note that the patient has a tracheostomy tube in place. She was quite weak and hypotensive and lethargic. In the burst department the patient was found to have bilateral lower lobe consolidation pleural effusions. White cell count was at 10.9. Lactic acid level was at 2.1. Blood pressure was quite low. The patient was given IV fluids and the patient was started on pressors. She was also started on a combination of Zosyn and vancomycin as dosed antibiotics for pneumonia. Blood cultures of been sent. Sputum cultures of been sent. The patient subsequently was attached to mechanical ventilator. Currently, the patient is mechanically ventilated. The patient is an assist- control mode of ventilation. The patient is an FiO2 of 60% with a tidal volume of 350 the respiratory rate of 18 and 5 of PEEP. The patient's blood gases showed a pH of 7.3 with a pCO2 of 53 and pO2 of 74. The patient received IV fluids and currently she is on levo fed running at 0.2 g per KG per minute. He r white cell count is 1 is at 18.4. Despite all this, she is arousable. He is following simple commands. She is not requiring any sedation. She is currently in normal sinus rhythm. She had a triple lumen catheter in her right femoral vein. Denies having any chest pain. Her lactic acid level dropped from 2.1 down to 1.5. Reevaluated today on 12/04/2018, patient remains on mechanical ventilation, she is presently on assist control rate of 18 tidal volume of 350 FiO2 of 50% and PEEP of 5. Remains on Levophed at 5.5 mcg/m, she is also on cefepime and vancomycin. Chest x-ray clearly shows evidence of pneumonia, and some chronic parenchymal changes with small bilateral pleural effusions and atelectasis. Patient had a WBC count of 16.7 hemoglobin of 9.2 ABG showed a pO2 of 97 pCO2 of 43 pH of 7.39. Electrolytes and renal profile are normal. Objective - Vital Signs Vital signs: Vital Signs Temp 98.6 F 12/04/18 09:00 Pulse 71 12/04/18 10:00 Resp 12 12/04/18 10:00 BP 92/57 12/04/18 10:00 Pulse Ox 94 L 12/04/18 10:00 Intake & Output 12/03/18 12/04/18 12/04/18 18:59 06:59 18:59 Intake Total 2919.87 1879 1238.458 Output Total 1325 1025 200 Balance 1594.87 854 1038.458 Weight 55.7 kg Intake: IV 1500 1625 Sodium Chloride 0.9% 1, 1500 1625 000 ml @ 125 mls/hr IV . Q8H [facility] Rx#:[id number] Intake, IV Titration 1419.87 254 1178.458 Amount Cefepime 2 gm In Sodium 100 Chloride 0.9% 100 ml @ 200 mls/hr IVPB Q12H [facility] Rx#:[id number] Dextrose 5%-0.9% NaCl 1, 375 000 ml @ 125 mls/hr IV . Q8H [facility] Rx#:[id number] Magnesium Sulfate-D5w Pmx 100 1 gm In Dextrose/Water 1 100ml.bag @ 100 mls/hr IVPB Q1H [facility] Rx#: [id number] Norepinephrine 32 mg In 3.458 Sodium Chloride 0.9% 218 ml @ 0.05 MCG/KG/MIN 1. 305 mls/hr IV .Q24H [facility] Rx#:[id number] Norepinephrine 4 mg In 919.87 254 Sodium Chloride 0.9% 250 ml @ 0.05 MCG/KG/MIN 15. 554 mls/hr IV .[id number] [facility] Rx#:[id number] Potassium Phosphate 10 100 mmol In Sodium Chloride 0 .9% 100 ml @ 50 mls/hr IV ONCE ONE Rx#:[id number] Sodium Chloride 0.9% 500 500 ml 500 ml @ 1000 mls/hr IV Q35M [facility] Rx#:[id number] Vancomycin 1,500 mg In 500 Sodium Chloride 0.9% 250 ml @ 125 mls/hr IVPB Q24H [facility] Rx#:[id number] Other 60 Output: Urine 1325 1025 200 Other: Voiding Method Indwelling Catheter Indwelling Catheter Indwelling Catheter - Exam Physical Exam: Revealed a 63-year-old female, pleasant, on mechanical ventilation, however she is awake and follows all simple instructions Head: Atraumatic, normocephalic, HEENT:[Neck is supple.] [No neck masses.] [No thyromegaly.] [No JVD.] PERRLA, EOMI, no icterus, tracheostomy is intact. Chest: [Crackles and rhonchi bilaterally especially at the right base..] Cardiac Exam: [Normal S1 and S2, no S3 gallop, no murmur.] Abdomen: [Soft, nontender, no megaly, no rebound, no guarding, normal bowel sounds.] PEG tube is intact. Extremities: [No clubbing, no edema, no cyanosis.] Neurological Exam: [No focal neurologic deficit. Skin: No rashes. Psychiatric: Normal mood, affect and mental status examination. Lymphatics: No lymphadenopathy. ] - Labs CBC & Chem 7: 12/04/18 05:49 12/04/18 05:49 Labs: Abnormal Lab Results - Last 24 Hours (Table) 12/03/18 12/03/18 12/03/18 Range/Units 11:59 16:55 20:44 WBC (3.8-10.6) k/uL RBC (3.80-5.40) m/uL Hgb (11.4-16.0) gm/dL Hct (34.0-46.0) % MCHC (31.0-37.0) g/dL RDW (11.5-15.5) % Neutrophils # (1.3-7.7) k/uL Lymphocytes # (1.0-4.8) k/uL ABG HCO3 (21-25) mmol/L ABG Total CO2 (19-24) mmol/L ABG O2 Saturation (94-97) % Sodium (137-145) mmol/L Chloride (98-107) mmol/L BUN (7-17) mg/dL Creatinine (0.52-1.04) mg/dL Glucose (74-99) mg/dL POC Glucose (mg/dL) 153 H 61 L 69 L (75-99) mg/dL Phosphorus (2.5-4.5) mg/dL Total Protein (6.3-8.2) g/dL Albumin (3.5-5.0) g/dL 12/04/18 12/04/18 12/04/18 Range/Units 04:48 05:03 05:49 WBC 16.7 H (3.8-10.6) k/uL RBC 3.04 L (3.80-5.40) m/uL Hgb 9.2 L D (11.4-16.0) gm/dL Hct 30.0 L (34.0-46.0) % MCHC 30.8 L (31.0-37.0) g/dL RDW 17.2 H (11.5-15.5) % Neutrophils # 15.7 H (1.3-7.7) k/uL Lymphocytes # 0.4 L (1.0-4.8) k/uL ABG HCO3 26 H (21-25) mmol/L ABG Total CO2 27 H (19-24) mmol/L ABG O2 Saturation 98.2 H (94-97) % Sodium (137-145) mmol/L Chloride (98-107) mmol/L BUN (7-17) mg/dL Creatinine (0.52-1.04) mg/dL Glucose (74-99) mg/dL POC Glucose (mg/dL) 127 H (75-99) mg/dL Phosphorus (2.5-4.5) mg/dL Total Protein (6.3-8.2) g/dL Albumin (3.5-5.0) g/dL 12/04/18 12/04/18 12/04/18 Range/Units 05:49 06:57 08:44 WBC (3.8-10.6) k/uL RBC (3.80-5.40) m/uL Hgb (11.4-16.0) gm/dL Hct (34.0-46.0) % MCHC (31.0-37.0) g/dL RDW (11.5-15.5) % Neutrophils # (1.3-7.7) k/uL Lymphocytes # (1.0-4.8) k/uL ABG HCO3 (21-25) mmol/L ABG Total CO2 (19-24) mmol/L ABG O2 Saturation (94-97) % Sodium 136 L (137-145) mmol/L Chloride 109 H (98-107) mmol/L BUN 19 H (7-17) mg/dL Creatinine 0.37 L (0.52-1.04) mg/dL Glucose 126 H (74-99) mg/dL POC Glucose (mg/dL) 132 H 130 H (75-99) mg/dL Phosphorus 2.1 L (2.5-4.5) mg/dL Total Protein 4.9 L (6.3-8.2) g/dL Albumin 2.4 L (3.5-5.0) g/dL Microbiology - Last 24 Hours (Table) 12/03/18 03:05 Urine Culture - Final Urine,Catheterized 12/02/18 22:52 Blood Culture - Preliminary Blood No Growth after 24 hours 12/03/18 09:30 Gram Stain - Preliminary Sputum Sputum Culture - Preliminary 12/02/18 23:30 Gram Stain - Preliminary Sputum Sputum Culture - Preliminary Assessment and Plan Assessment: Impression: 1 acute on chronic hypoxic respiratory failure secondary to bilateral pneumonia possibly hospital acquired pneumonia since the patient had a recent prolonged course at [facility] and she was at the [facility] [place]. 2 acute sepsis and septic shock secondary to pneumonia patient required fluid boluses and pressors. 3 stage IV non-small cell lung cancer post-chemoradiation therapy and was on immunotherapy. 4 severe COPD with acute exacerbation 5 hypertension 6 chronic back pain and fibromyalgia and arthritis 7 history of depression 8 history of recent prolonged course of mechanical ventilation in September of 2018 requiring tracheostomy and PEG tube placement Recommendation: Continue present supportive care measures, continue antibiotics including vancomycin and Zosyn, will give the patient a trial of weaning on trach collar if possible today, continue fluids, pressors, titrate the pressor and maintain a mean arterial pressure of 65 monitor urine output, continue nutritional support, patient will be placed on feeding via PEG tube. Continue GI and DVT prophylaxis. She is on IV Protonix. Condition remains critical, we'll continue to follow. Critical care time is 34 minutes. Time with Patient: Greater than 30
[2018-12-04 12:26] LABS: Glucose,Whole Blood 140 mg/dL (75-99)
[2018-12-04 13:40] LABS: Glucose,Whole Blood 149 mg/dL (75-99)
[2018-12-04] MEDS: VANCOMYCIN 1,250 MG in SODIUM CHLORIDE 0.9% 250 ML IVPB SCH ×2 (17:05→23:04)
--- NOTE | 2018-12-04 18:39 | PN ---
PROGRESS NOTE DATE OF SERVICE: 12/04/2018 REASON FOR FOLLOWUP: Pneumonia. INTERVAL HISTORY: The patient is currently afebrile. The patient has been breathing comfortably. Her blood pressure is still borderline, though. However, the patient is currently on the trach mask and has been extubated. Breathing has improved. No nausea, vomiting or any diarrhea reported. PHYSICAL EXAMINATION: Blood pressure is 87/43, pulse of 75, temperature 98.5. She is 92% on 50% FiO2. General description is an elderly female up in the chair in no distress. RESPIRATORY SYSTEM: Unlabored breathing. Clear to auscultation anteriorly. HEART: S1, S2. Regular rate and rhythm. ABDOMEN: Soft. No tenderness. LABS: White count slightly decreased to 16.7, BUN of 19, creatinine 0.37. Blood and sputum culture currently pending. DIAGNOSTIC IMPRESSION AND PLAN: Patient admitted to hospital with worsening respiratory symptoms, low-grade fever and white count with evidence of right lower lobe pneumonia, possibly gram-negative. The patient is currently on cefepime and vancomycin; to continue while waiting for the cultures to finalize. Continue with supportive care. MMODL / IJN: [id number] /
[2018-12-04 19:02] LABS: Glucose,Whole Blood 94 mg/dL (75-99)
[2018-12-04] MEDS: LORazepam 0.5 MG TAB PO PRN (20:04)
[2018-12-04 22:00] LABS: Glucose,Whole Blood 104 mg/dL (75-99)
[2018-12-04] MEDS: PREGABALIN 50 MG CAP PO SCH (23:01)
[2018-12-05] MEDS: DEXTROSE 5%-0.9% NACL 1,000 ML IV SCH ×3 (00:28→20:11)
[2018-12-05 00:47] LABS: Glucose,Whole Blood 167 mg/dL (75-99)
[2018-12-05] MEDS: INSULIN ASPART (NovoLOG) 100 UNIT/ML VIAL SQ SCH ×5 (00:59→23:54)
[2018-12-05] MEDS: ALBUTEROL NEBULIZED 2.5 MG/3 ML INHALATION SCH ×4 (01:21→19:43)
[2018-12-05 05:50] LABS: Glucose,Whole Blood 148 mg/dL (75-99)
[2018-12-05] MEDS: LEVOTHYROXINE 50 MCG TAB PO SCH (06:22)
[2018-12-05 06:56] LABS: Anisocytosis Slight; Basophils % (A) 0 %; Eosinophils # (A) 0.1 k/uL (0-0.7); Eosinophils % (A) 1 %; HCT 31.2 % (34.0-46.0); Hypochromasia Marked; Lymphocytes # (A) 0.4 k/uL (1.0-4.8); Lymphocytes % (A) 3 %; MCH 29.2 pg (25.0-35.0); MCHC 28.9 g/dL (31.0-37.0); MCV 101.1 fL (80.0-100.0); Macrocytosis Slight; Mean Platelet Volume 6.9; Monocytes # (A) 0.3 k/uL (0-1.0); Monocytes % (A) 2 %; Neutrophils # (A) 12.8 k/uL (1.3-7.7); Neutrophils % (A) 94 %; Platelet Count 281 k/uL (150-450); RBC 3.09 m/uL (3.80-5.40); RDW 17.2 % (11.5-15.5); WBC 13.6 k/uL (3.8-10.6)
[2018-12-05] MEDS ORDERED: VANCOMYCIN TROUGH DUE 1 EACH MISC MISCELLANE ONE (07:00)
[2018-12-05 07:32] LABS: ABG Base Excess -0.9 mmol/L; ABG HCO3 26 mmol/L (21-25); ABG Oxygen Saturation 99.1 % (94-97); ABG PCO2 55 mmHg (35-45); ABG PH 7.28 (7.35-7.45); ABG PO2 132 mmHg (83-108); ABG TCO2 28 mmol/L (19-24)
[2018-12-05 07:34] LABS: Anion Gap 4 mmol/L; Blood Urea Nitrogen 11 mg/dL (7-17); Calcium 8.5 mg/dL (8.4-10.2); Carbon Dioxide 26 mmol/L (22-30); Chloride 109 mmol/L (98-107); Glucose 151 mg/dL (74-99); Magnesium 1.9 mg/dL (1.6-2.3); Potassium 3.7 mmol/L (3.5-5.1); Sodium 139 mmol/L (137-145)
[2018-12-05] MEDS: BUDESONIDE 1 MG/2 ML NEBU INHALATION SCH ×2 (08:21→19:43)
--- NOTE | 2018-12-05 08:46 | XR ---
EXAMINATION TYPE: XR chest 1V portable DATE OF EXAM: 12/05/2018 COMPARISON: 12/04/2018 INDICATION: Tube placement TECHNIQUE: Single frontal view of the chest is obtained. FINDINGS: The heart size is normal. The pulmonary vasculature is normal. Right lower lobe consolidation is present. Correlate for pneumonia. This may have slight improvement. Left pleural effusion appears diminished Tracheostomy tube may have been pulled back somewhat, tip appears to be a new tracheostomy opening wi thin the trachea. IMPRESSION: 1. Tracheostomy tube may be pulled back from prior exam. 2. Right lower lobe consolidation. Correlate for pneumonia. 3. Improving left pleural effusion
[2018-12-05] MEDS: oxyCODONE ER 10 MG TAB.ER.12H PO SCH ×2 (09:03→21:00)
[2018-12-05] MEDS: AMIODARONE 200 MG TAB PO SCH (09:40)
[2018-12-05] MEDS: VANCOMYCIN 1,250 MG in SODIUM CHLORIDE 0.9% 250 ML IVPB SCH ×2 (09:40→20:11)
[2018-12-05] MEDS: HEPARIN SODIUM,PORCINE 5,000 UNIT/ML 1 ML VIAL SQ SCH ×3 (09:40→23:54)
[2018-12-05] MEDS: CHLORHEXIDINE GLUCONATE 15 ML CUP MUCOUS MEM SCH ×2 (09:40→20:14)
[2018-12-05] MEDS: PANTOPRAZOLE 40 MG/10 ML VIAL IV SCH (09:41)
[2018-12-05] MEDS: QUEtiapine 50 MG TAB PO SCH ×2 (09:41→20:14)
[2018-12-05] MEDS: CEFEPIME 2 GM in SODIUM CHLORIDE 0.9% 100 ML IVPB SCH ×2 (09:41→22:06)
[2018-12-05] MEDS: PREGABALIN 50 MG CAP PO SCH ×2 (09:41→20:14)
[2018-12-05] MEDS: SENNOSIDES-DOCUSATE SODIUM 1 EACH TAB PO SCH ×2 (09:41→20:14)
--- NOTE | 2018-12-05 12:03 | P.PN ---
Subjective Progress Note Date: 12/05/18 This is a 63-year-old female patient who presented to the hospital with worsening shortness of breath. Patient has a past medical history of recent hospital admission in which she was admitted to [facility] hearing transferred to [facility] which required prolonged intubation and tracheostomy. Patient was recently discharged to recent D/C to [facility] ago. Patient has had increased sputum production and cough. Patient has past medical history of non- small cell lung cancer stage III, CVA, COPD, GERD, hyperlipidemia, osteoarthritis,chronic back pain and depression. Chest x-ray completed in ER showing right lower lobe consolidation with bilateral pleural effusions. Patient's WBC elevated at 10.9. Patient also have a lactic acid of 2.1. UA negative. Patient's blood pressure low. Patient started on Levophed and transferred to the ICU. Dr. Jackson has been consulted for critical care. Patient started on vancomycin and Zosyn for antibiotic. Blood urine and sputum cultures ordered. At this time patient is on mechanical ventilation resting comfortably in bed. Patient is following commands. On 12/04/2018 patient maintained on mechanical ventilation but awake and alert. Patient remains in intensive care unit on Levophed for pressure support. Patient reports that she feels better. Patient currently on vancomycin and Maxipime for antibiotics. Infectious disease and pulmonary services are following. White Blood cell 16.7. Blood,urine and sputum cultures pending On 12/05/2018 patient rates on mechanical ventilation but awake and alert following commands. patient reports that she feels overall improved. white blood cell improving to 13.6. At this time patient denies chest pain or shortness breath. Patient denies nausea vomiting diarrhea denies any urinary b urning or frequency Objective - Vital Signs Vital signs: Vital Signs Temp 98.3 F 12/05/18 08:00 Pulse 71 12/05/18 08:55 Resp 14 12/05/18 08:00 BP 133/69 12/05/18 08:00 Pulse Ox 99 12/05/18 08:00 Intake & Output 12/04/18 12/05/18 12/05/18 18:59 06:59 18:59 Intake Total 2638.458 2617.281 190 Output Total 645 655 75 Balance 7115.077 3798.281 115 Weight 63.5 kg 65.4 kg Intake: IV 50 380 10 Normal Saline Carrier 50 130 10 Vancomycin 1,250 mg In 250 Sodium Chloride 0.9% 250 ml @ 125 mls/hr IVPB Q8H [facility] Rx#:[id number] Intake, IV Titration 2528.458 1647.281 125 Amount Cefepime 2 gm In Sodium 100 Chloride 0.9% 100 ml @ 200 mls/hr IVPB Q12H [facility] Rx#:[id number] Dextrose 5%-0.9% NaCl 1, 1375 1625 125 000 ml @ 125 mls/hr IV . Q8H [facility] Rx#:[id number] Magnesium Sulfate-D5w Pmx 200 1 gm In Dextrose/Water 1 100ml.bag @ 100 mls/hr IVPB Q1H [facility] Rx#: [id number] Norepinephrine 32 mg In 3.458 22.281 Sodium Chloride 0.9% 218 ml @ 0.05 MCG/KG/MIN 1. 305 mls/hr IV .Q24H [facility] Rx#:[id number] Potassium Phosphate 10 100 mmol In Sodium Chloride 0 .9% 100 ml @ 50 mls/hr IV ONCE ONE Rx#:[id number] Vancomycin 1,250 mg In 250 Sodium Chloride 0.9% 250 ml @ 125 mls/hr IVPB Q8H [facility] Rx#:[id number] Vancomycin 1,500 mg In 500 Sodium Chloride 0.9% 250 ml @ 125 mls/hr IVPB Q24H [facility] Rx#:[id number] Oral 275 Tube Feeding 255 25 Other 60 60 30 Output: Urine 645 655 75 Other: Voiding Method Indwelling Catheter Indwelling Catheter Indwelling Catheter - Exam Head normocephalic Neck supple. Tracheostomy in place Lungs diminished with bilateral rhonchi. Heart regular rate and rhythm S1-S2, no rub or gallop Abdomen is soft nontender nondistended positive bowel sounds no h epatosplenomegaly. PEG tube in place Extremities no edema Neuro follows commands. On mechanical ventilation - Labs CBC & Chem 7: 12/05/18 06:34 12/05/18 06:34 Labs: Abnormal Lab Results - Last 24 Hours (Table) 12/04/18 12/04/18 12/04/18 Range/Units 12:23 13:15 21:41 WBC (3.8-10.6) k/uL RBC (3.80-5.40) m/uL Hgb (11.4-16.0) gm/dL Hct (34.0-46.0) % MCV (80.0-100.0) fL MCHC (31.0-37.0) g/dL RDW (11.5-15.5) % Neutrophils # (1.3-7.7) k/uL Lymphocytes # (1.0-4.8) k/uL ABG pH (7.35-7.45) ABG pCO2 (35-45) mmHg ABG pO2 (83-108) mmHg ABG HCO3 (21-25) mmol/L ABG Total CO2 (19-24) mmol/L ABG O2 Saturation (94-97) % Chloride (98-107) mmol/L Creatinine (0.52-1.04) mg/dL Glucose (74-99) mg/dL POC Glucose (mg/dL) 140 H 149 H 104 H (75-99) mg/dL 12/05/18 12/05/18 12/05/18 Range/Units 00:33 05:46 06:34 WBC 13.6 H (3.8-10.6) k/uL RBC 3.09 L (3.80-5.40) m/uL Hgb 9.0 L (11.4-16.0) gm/dL Hct 31.2 L (34.0-46.0) % MCV 101.1 H (80.0-100.0) fL MCHC 28.9 L (31.0-37.0) g/dL RDW 17.2 H (11.5-15.5) % Neutrophils # 12.8 H (1.3-7.7) k/uL Lymphocytes # 0.4 L (1.0-4.8) k/uL ABG pH (7.35-7.45) ABG pCO2 (35-45) mmHg ABG pO2 (83-108) mmHg ABG HCO3 (21-25) mmol/L ABG Total CO2 (19-24) mmol/L ABG O2 Saturation (94-97) % Chloride (98-107) mmol/L Creatinine (0.52-1.04) mg/dL Glucose (74-99) mg/dL POC Glucose (mg/dL) 167 H 148 H (75-99) mg/dL 12/05/18 12/05/18 Range/Units 06:34 07:04 WBC (3.8-10.6) k/uL RBC (3.80-5.40) m/uL Hgb (11.4-16.0) gm/dL Hct (34.0-46.0) % MCV (80.0-100.0) fL MCHC (31.0-37.0) g/dL RDW (11.5-15.5) % Neutrophils # (1.3-7.7) k/uL Lymphocytes # (1.0-4.8) k/uL ABG pH 7.28 L (7.35-7.45) ABG pCO2 55 H (35-45) mmHg ABG pO2 132 H (83-108) mmHg ABG HCO3 26 H (21-25) mmol/L ABG Total CO2 28 H (19-24) mmol/L ABG O2 Saturation 99.1 H (94-97) % Chloride 109 H (98-107) mmol/L Creatinine 0.32 L (0.52-1.04) mg/dL Glucose 151 H (74-99) mg/dL POC Glucose (mg/dL) (75-99) mg/dL Microbiology - Last 24 Hours (Table) 12/03/18 09:30 Gram Stain - Preliminary Sputum Sputum Culture - Preliminary Streptococcus pneumoniae 12/02/18 23:30 Gram Stain - Preliminary Sputum Sputum Culture - Preliminary Streptococcus pneumoniae 12/02/18 22:52 Blood Culture - Preliminary Blood No Growth after 48 hours 12/03/18 03:05 Urine Culture - Final Urine,Catheterized Assessment and Plan Assessment: 1. Sepsis present on admission related to pneumonia. Chest x-ray completed showing right lower lobe consolidation. Bilateral pleural effusions. Patient admitted to the intensive care unit. Initial lactic acid 2.1. Blood urine and sputum cultures have been ordered. White blood cell 16.4. Infectious disease following. Patient on cefepime and Vanco. Sputum culture currently growing Streptococcus pneumoniae 2. Hypotension related to above. Patient maintained on Levophed 3. History of non-small cell lung stage III adenocarcinoma 4. History of recent prolonged hospital admission in which she was transferred to [facility]. Patient was on mechanical ventilation for prolonged time requiring tracheostomy 5. Acute on chronic respiratory failure. Does have tracheostomy in place currently on mechanical ventilation 6. Bilateral pleural effusions. Pulmonary services have been consulted 7. History of COPD 8. History of CVA 9. History of osteoarthritis 10. History of hyperlipidemia 11. History of fibromyalgia 12. History of depression 13. Ex-smoker. Patient is smoking history of half-pack per day for 30 years 14. Bilateral lower extremity neuropathy. Patient started on Lyrica DVT prophylaxis heparin. GI prophylaxis Protonix I performed an examination of the patient and discussed their management with the Nurse Practitioner. I have reviewed the Nurse Practitioner's notes and a gree with the documented findings and plan of care
[2018-12-05 12:13] LABS: Glucose,Whole Blood 118 mg/dL (75-99)
[2018-12-05] MEDS: ONDANSETRON 4 MG/2 ML VIAL IVP PRN ×2 (12:32→20:46)
--- NOTE | 2018-12-05 13:49 | P.PN ---
Subjective Progress Note Date: 12/05/18 Principal diagnosis: Acute sepsis, septic shock, and bilateral pneumonia with sepsis. This is a very pleasant 63-year-old female patient who follows with Dr. Benoit as her primary care physician. She has a history of CVA/TIA, fibromyalgia, gastroesophageal reflux disease, hyperlipidemia, hypothyroidism, chronic back pain, depression. She also has a history of chronic tobacco dependence, oxygen dependent chronic obstructive pulmonary disease with an FEV1 value of 56% of pre dicted, and non-small cell lung cancer stage III adenocarcinoma. She follows with Dr. Fan in our office. This was diagnosed by an FNA of a left upper lobe lesion by IR in November 2016. She had received concurrent chemoradiation with subsequent additional chemotherapy and then placed on maintenance mmunotherapy of Imfinzi back in December 2017. Her last PET scan in March 2018 revealed continued left upper lobe mass with irregular margins extending to the pleural surface, spiculated appearance but was stable compared to previous and October 2017. The SUV value was only 1.7. Subsequent computed tomography scan of the chest in July 2018 revealed a stable and slightly smaller spiculated mass of the left upper lobe measuring 2.5 x 2.4 cm versus 3.0 x 2.6 previous. No evidence of recurrence or metastasis. The patient was in the hospital back in early September 2018 and she was having ongoing issues with nausea vomiting profound weakness and fatigue. She decided to stop taking the immunotherapy. She had been treated for his COPD exacerbation 08/22/[address] our office by Dr. Fan where she received steroids and Bactrim. She did improve for the first week or so. She presented to the emergency room yesterday with complaints of increasing shortness of breath cough and congestion. She did have some lower extremity edema. She was still quite weak and fatigued. ome dyspnea on exertion. The patient was discharged home on 09/17/2018 as the patient shortness of breath improved and the patient recovered from her acute COPD exacerbation and she was discharged home on her usual routine medications which included also morphine sulfate 30 mg by mouth twice a day Percocet 04/11/2025 every 6 hours and a when necessary basis. In terms of her lung medication she was maintained on a combi nation of Symbicort and Incruse. She is also on Synthroid 25 g by mouth daily. She was given Lasix to be taken on an as needed basis. The patient subsequently came back to our hospital on 09/29/2018 because of altered mental status. According to the family the patient was acting weird. She was acting unusual and she was confused. She was also very weak and she was having episodes of fall. I do see a bruise over her forehead. The family told that she did not have any active had trauma. No seizure activity. No neck stiffness. No documented fever. She was thrashing significantly yesterday. A CAT scan of the head was done that showed no acute process. CAT scan of abdomen and pelvis was done that showed urinary bladder distention along with extensive colonic stool. The patient's ammonia level was at 28. Urine and blood cultures were ordered. The influenza screen was negative. She did not have any neck stiffness. No fever. She was at times morning. Other times she would open up her eyes and follows some simple commands. I was told that this is an improvement in her condition compared to yesterday. She was able to follow some simple commands however she has not been consistent in following orders. His speech is minimal and the patient may safely worse. She denies being in pain. Urine toxin was ordered. She was given a dose of Narcan here in the ICU without much improvement. Based on all this, I intubated the patient at that time and moved to the intensive care unit. Lumbar puncture was done and was negative and assess the causes for this patient altered mental status was not established. The patient was chest at [facility]. She underwent prolonged hospitalization during which she required intubation mechanical ventilation tracheostomy tube insertion PEG tube insertion and following that the patient was discharged to [facility] [place] where she was undergoing rehabilitation. It seems that the patient regained her mentation and she was communicating well. I'm not sure of the details of her presentation at [facility] The patient came in yesterday to the burst department complaining of worsening shortness of breath. Note that the patient has a tracheostomy tube in place. She was quite weak and hypotensive and lethargic. In the burst department the patient was found to have bilateral lower lobe consolidation pleural effusions. White cell count was at 10.9. Lactic acid level was at 2.1. Blood pressure was quite low. The patient was given IV fluids and the patient was started on pressors. She was also started on a combination of Zosyn and vancomycin as dosed antibiotics for pneumonia. Blood cultures of been sent. Sputum cultures of been sent. The patient subsequently was attached to mechanical ventilator. Currently, the patient is mechanically ventilated. The patient is an assist- control mode of ventilation. The patient is an FiO2 of 60% with a tidal volume of 350 the respiratory rate of 18 and 5 of PEEP. The patient's blood gases showed a pH of 7.3 with a pCO2 of 53 and pO2 of 74. The patient received IV fluids and currently she is on levo fed running at 0.2 g per KG per minute. He r white cell count is 1 is at 18.4. Despite all this, she is arousable. He is following simple commands. She is not requiring any sedation. She is currently in normal sinus rhythm. She had a triple lumen catheter in her right femoral vein. Denies having any chest pain. Her lactic acid level dropped from 2.1 down to 1.5. Reevaluated today on 12/04/2018, patient remains on mechanical ventilation, she is presently on assist control rate of 18 tidal volume of 350 FiO2 of 50% and PEEP of 5. Remains on Levophed at 5.5 mcg/m, she is also on cefepime and vancomycin. Chest x-ray clearly shows evidence of pneumonia, and some chronic parenchymal changes with small bilateral pleural effusions and atelectasis. Patient had a WBC count of 16.7 hemoglobin of 9.2 ABG showed a pO2 of 97 pCO2 of 43 pH of 7.39. Electrolytes and renal profile are normal. Reevaluated today on 12/05/2018, remains on mechanical ventilation, she is presently on tidal volume of 350 assist-control rate of 18 FiO2 is down to 40% from 50% earlier, and her PEEP is 5. Remains on antibiotics, and requiring norepinephrine at 0.12 mcg/kg/m. Surprisingly the patient is on mechanical ventilation, but fully awake, responsive, asking to be fed, however I plan to have a swallow evaluation on this patient, a bit reluctant to start feeding while she is on mechanical ventilation. Patient is asking for coffee. She was given a trial of weaning yesterday from mechanical ventilation and she was placed on a trach collar, lasted about 2 hours and had to be placed back on mechanical ventilation. Sputum today is positive for Streptococcus pneumonia and the patient is on antibiotics, being followed by infectious disease. Initially placed on vancomycin and Zosyn . WBC count is 13.6 hemoglobin is 9 ABG showed a pO2 of 132 pCO2 of 55 pH of 7.28. Basic metabolic profile is relatively normal. Chest x-ray continues to show significant right lower lobe consolidation consistent with pneumonia and her left pleural effusion is improved. Objective - Vital Signs Vital signs: Vital Signs Temp 98.3 F 12/05/18 08:00 Pulse 72 12/05/18 12:51 Resp 14 12/05/18 08:00 BP 133/69 12/05/18 08:00 Pulse Ox 99 12/05/18 08:00 Intake & Output 12/04/18 12/05/18 12/05/18 18:59 06:59 18:59 Intake Total 2638.458 2617.281 190 Output Total 645 655 75 Balance 3687.493 6073.281 115 Weight 63.5 kg 65.4 kg Intake: IV 50 380 10 Normal Saline Carrier 50 130 10 Vancomycin 1,250 mg In 250 Sodium Chloride 0.9% 250 ml @ 125 mls/hr IVPB Q8H [facility] Rx#:[id number] Intake, IV Titration 2528.458 1647.281 125 Amount Cefepime 2 gm In Sodium 100 Chloride 0.9% 100 ml @ 200 mls/hr IVPB Q12H [facility] Rx#:[id number] Dextrose 5%-0.9% NaCl 1, 1375 1625 125 000 ml @ 125 mls/hr IV . Q8H [facility] Rx#:[id number] Magnesium Sulfate-D5w Pmx 200 1 gm In Dextrose/Water 1 100ml.bag @ 100 mls/hr IVPB Q1H [facility] Rx#: [id number] Norepinephrine 32 mg In 3.458 22.281 Sodium Chloride 0.9% 218 ml @ 0.05 MCG/KG/MIN 1. 305 mls/hr IV .Q24H [facility] Rx#:[id number] Potassium Phosphate 10 100 mmol In Sodium Chloride 0 .9% 100 ml @ 50 mls/hr IV ONCE ONE Rx#:[id number] Vancomycin 1,250 mg In 250 Sodium Chloride 0.9% 250 ml @ 125 mls/hr IVPB Q8H [facility] Rx#:[id number] Vancomycin 1,500 mg In 500 Sodium Chloride 0.9% 250 ml @ 125 mls/hr IVPB Q24H [facility] Rx#:[id number] Oral 275 Tube Feeding 255 25 Other 60 60 30 Output: Urine 645 655 75 Other: Voiding Method Indwelling Catheter Indwelling Catheter Indwelling Catheter - Exam Physical Exam: Revealed a 63-year-old female, pleasant, on mechanical ventilation, however she is awake and follows all simple instructions Head: Atraumatic, normocephalic, HEENT:[Neck is supple.] [No neck masses.] [No thyromegaly.] [No JVD.] PERRLA, EOMI, no icterus, tracheostomy is intact. Chest: [Crackles and rhonchi bilaterally especially at the right base..] Cardiac Exam: [Normal S1 and S2, no S3 gallop, no murmur.] Abdomen: [Soft, nontender, no megaly, no rebound, no guarding, normal bowel sounds.] PEG tube is intact. Extremities: [No clubbing, no edema, no cyanosis.] Neurological Exam: [No focal neurologic deficit. Skin: No rashes. Psychiatric: Normal mood, affect and mental status examination. Lymphatics: No lymphadenopathy. ] - Labs CBC & Chem 7: 12/05/18 06:34 12/05/18 06:34 Labs: Abnormal Lab Results - Last 24 Hours (Table) 12/04/18 12/05/18 12/05/18 Range/Units 21:41 00:33 05:46 WBC (3.8-10.6) k/uL RBC (3.80-5.40) m/uL Hgb (11.4-16.0) gm/dL Hct (34.0-46.0) % MCV (80.0-100.0) fL MCHC (31.0-37.0) g/dL RDW (11.5-15.5) % Neutrophils # (1.3-7.7) k/uL Lymphocytes # (1.0-4.8) k/uL ABG pH (7.35-7.45) ABG pCO2 (35-45) mmHg ABG pO2 (83-108) mmHg ABG HCO3 (21-25) mmol/L ABG Total CO2 (19-24) mmol/L ABG O2 Saturation (94-97) % Chloride (98-107) mmol/L Creatinine (0.52-1.04) mg/dL Glucose (74-99) mg/dL POC Glucose (mg/dL) 104 H 167 H 148 H (75-99) mg/dL 12/05/18 12/05/18 12/05/18 Range/Units 06:34 06:34 07:04 WBC 13.6 H (3.8-10.6) k/uL RBC 3.09 L (3.80-5.40) m/uL Hgb 9.0 L (11.4-16.0) gm/dL Hct 31.2 L (34.0-46.0) % MCV 101.1 H (80.0-100.0) fL MCHC 28.9 L (31.0-37.0) g/dL RDW 17.2 H (11.5-15.5) % Neutrophils # 12.8 H (1.3-7.7) k/uL Lymphocytes # 0.4 L (1.0-4.8) k/uL ABG pH 7.28 L (7.35-7.45) ABG pCO2 55 H (35-45) mmHg ABG pO2 132 H (83-108) mmHg ABG HCO3 26 H (21-25) mmol/L ABG Total CO2 28 H (19-24) mmol/L ABG O2 Saturation 99.1 H (94-97) % Chloride 109 H (98-107) mmol/L Creatinine 0.32 L (0.52-1.04) mg/dL Glucose 151 H (74-99) mg/dL POC Glucose (mg/dL) (75-99) mg/dL 12/05/18 Range/Units 12:09 WBC (3.8-10.6) k/uL RBC (3.80-5.40) m/uL Hgb (11.4-16.0) gm/dL Hct (34.0-46.0) % MCV (80.0-100.0) fL MCHC (31.0-37.0) g/dL RDW (11.5-15.5) % Neutrophils # (1.3-7.7) k/uL Lymphocytes # (1.0-4.8) k/uL ABG pH (7.35-7.45) ABG pCO2 (35-45) mmHg ABG pO2 (83-108) mmHg ABG HCO3 (21-25) mmol/L ABG Total CO2 (19-24) mmol/L ABG O2 Saturation (94-97) % Chloride (98-107) mmol/L Creatinine (0.52-1.04) mg/dL Glucose (74-99) mg/dL POC Glucose (mg/dL) 118 H (75-99) mg/dL Microbiology - Last 24 Hours (Table) 12/03/18 09:30 Gram Stain - Preliminary Sputum Sputum Culture - Preliminary Streptococcus pneumoniae 12/02/18 23:30 Gram Stain - Preliminary Sputum Sputum Culture - Preliminary Streptococcus pneumoniae 12/02/18 22:52 Blood Culture - Preliminary Blood No Growth after 48 hours Assessment and Plan Assessment: Impression: 1 acute on chronic hypoxic respiratory failure secondary to bilateral pneumonia secondary to Streptococcus pneumonia as documented from the sputum culture. 2 acute sepsis and septic shock secondary to pneumonia patient required fluid boluses and pressors. Remains on relatively small dose of norepinephrine, will titrate accordingly. 3 stage IV non-small cell lung cancer post-chemoradiation therapy and was on immunotherapy. 4 severe COPD with acute exacerbation 5 hypertension 6 chronic back pain and fibromyalgia and arthritis 7 history of depression 8 history of recent prolonged course of mechanical ventilation in September of 2018 requiring tracheostomy and PEG tube placement Recommendation: Continue present supportive care measures including ventilatory support, nutritional support, antibiotics, her antibiotics are being addressed by infectious disease on the case, we'll give the patient another weaning trial today with trach collar if possible, continue GI and DVT prophylaxis, patient was started on PEG tube feedings yesterday, but now she is asking for coffee, I did recommend swallow evaluation on this patient. Continue GI and DVT prophylaxis. Patient remains critically ill, will follow. Critical care time is 32 minutes. Time with Patient: Greater than 30
[2018-12-05 17:34] LABS: Glucose,Whole Blood 138 mg/dL (75-99)
[2018-12-05] MEDS: NOREPINEPHRINE 32 MG in SODIUM CHLORIDE 0.9% 218 ML IV SCH (19:14)
--- NOTE | 2018-12-05 19:59 | PN ---
PROGRESS NOTE DATE OF SERVICE: 12/05/2018 REASON FOR FOLLOWUP: Pneumonia. INTERVAL HISTORY: The patient is afebrile. The patient is currently breathing comfortably on a trach collar. No significant chest pain or any cough. No nausea, vomiting, or any diarrhea or abdominal pain. PHYSICAL EXAMINATION: Blood pressure 117/62 with a pulse of 68, temperature 97.9. She is 97% on trach collar. General description is an elderly female lying in bed in no distress. RESPIRATORY SYSTEM: Unlabored breathing. Clear to auscultation anteriorly. HEART: S1, S2. Regular rate and rhythm. ABDOMEN: Soft. No tenderness. LABS: Hemoglobin 9, white count down to 13.6, BUN of 11, creatinine 0.32. Sputum with Streptococcus pneumoniae with sensitivities currently pending. DIAGNOSTIC IMPRESSION AND PLAN: Patient admitted to hospital with right lower lobe pneumonia, sputum with Streptococcus pneumoniae, currently covered with cefepime and vancomycin. To continue. Vancomycin trough needs to be cut down; to keep the trough around 15. Adjust antibiotic further based on the culture report. Continue with supportive care. MMODL / IJN: [id number] /
[2018-12-05 20:03] LABS: Hemoglobin A1C 5.2 % (4.0-6.0)
[2018-12-05] MEDS: LORazepam 0.5 MG TAB PO PRN (20:51)
[2018-12-06 00:26] LABS: Glucose,Whole Blood 138 mg/dL (75-99)
[2018-12-06] MEDS: ALBUTEROL NEBULIZED 2.5 MG/3 ML INHALATION SCH ×4 (00:45→19:38)
[2018-12-06] MEDS: DEXTROSE 5%-0.9% NACL 1,000 ML IV SCH ×4 (04:06→20:24)
[2018-12-06 05:35] LABS: Glucose,Whole Blood 165 mg/dL (75-99)
[2018-12-06] MEDS: NOREPINEPHRINE 32 MG in SODIUM CHLORIDE 0.9% 218 ML IV SCH (05:42)
[2018-12-06] MEDS: LEVOTHYROXINE 50 MCG TAB PO SCH (05:46)
[2018-12-06] MEDS: INSULIN ASPART (NovoLOG) 100 UNIT/ML VIAL SQ SCH ×3 (05:46→18:39)
[2018-12-06 06:06] LABS: Glucose,Whole Blood 160 mg/dL (75-99)
[2018-12-06] MEDS: BUDESONIDE 1 MG/2 ML NEBU INHALATION SCH ×2 (08:06→19:38)
--- NOTE | 2018-12-06 08:10 | XR ---
EXAMINATION TYPE: XR chest 1V portable DATE OF EXAM: 12/06/2018 COMPARISON: 12/05/2018 HISTORY: Shortness of breath. TECHNIQUE: Single frontal view of the chest is obtained. FINDINGS: Cardiomediastinal silhouette appears enlarged and there is mild pulmonary vascular congest ion and bilateral small to moderate layering pleural effusions with associated airspace disease. Medi an tracheostomy is seen. No sizable pneumothorax. No acute osseous pathology is seen. IMPRESSION: Suspected sequela of congestive heart failure with mild pulmonary vascular congestion an d stable small to moderate pleural effusions with bibasilar airspace disease, likely atelectasis. Mul tifocal pneumonia and parapneumonic effusions are an alternative consideration.
[2018-12-06 08:26] LABS: Anisocytosis Slight; HCT 32.5 % (34.0-46.0); HGB 9.4 gm/dL (11.4-16.0); Hypochromasia Marked; MCH 30.1 pg (25.0-35.0); MCHC 28.9 g/dL (31.0-37.0); Macrocytosis Moderate; Mean Platelet Volume 7.9; Platelet Count 243 k/uL (150-450); RBC 3.12 m/uL (3.80-5.40); RDW 16.9 % (11.5-15.5); WBC 13.3 k/uL (3.8-10.6)
[2018-12-06 08:28] LABS: Anion Gap 3 mmol/L; Blood Urea Nitrogen 7 mg/dL (7-17); Calcium 8.3 mg/dL (8.4-10.2); Carbon Dioxide 24 mmol/L (22-30); Chloride 111 mmol/L (98-107); Glucose 152 mg/dL (74-99); Potassium 3.5 mmol/L (3.5-5.1); Sodium 138 mmol/L (137-145)
[2018-12-06] MEDS: CHLORHEXIDINE GLUCONATE 15 ML CUP MUCOUS MEM SCH ×2 (08:44→20:05)
[2018-12-06] MEDS: VANCOMYCIN 1,250 MG in SODIUM CHLORIDE 0.9% 250 ML IVPB SCH (08:45)
[2018-12-06] MEDS: PANTOPRAZOLE 40 MG/10 ML VIAL IV SCH (08:45)
[2018-12-06] MEDS: HEPARIN SODIUM,PORCINE 5,000 UNIT/ML 1 ML VIAL SQ SCH ×2 (08:45→16:45)
[2018-12-06] MEDS: QUEtiapine 50 MG TAB PO SCH ×2 (08:45→20:07)
[2018-12-06] MEDS: oxyCODONE ER 10 MG TAB.ER.12H PO SCH ×2 (08:45→20:59)
[2018-12-06] MEDS: SENNOSIDES-DOCUSATE SODIUM 1 EACH TAB PO SCH ×2 (08:45→20:05)
[2018-12-06] MEDS: AMIODARONE 200 MG TAB PO SCH (08:45)
[2018-12-06] MEDS: PREGABALIN 50 MG CAP PO SCH ×2 (09:17→20:06)
[2018-12-06] MEDS: POTASSIUM BICARBONATE/CIT AC 20 MEQ TABLET.EFF NG-TUBE SCH ×2 (10:09→10:16)
[2018-12-06] MEDS: CEFEPIME 2 GM in SODIUM CHLORIDE 0.9% 100 ML IVPB SCH (10:09)
[2018-12-06] MEDS: FUROSEMIDE 10 MG/ML 4 ML VIAL IV SCH ×2 (10:16→20:06)
--- NOTE | 2018-12-06 11:16 | P.PN ---
Subjective Progress Note Date: 12/06/18 This is a 63-year-old female patient who presented to the hospital with worsening shortness of breath. Patient has a past medical history of recent hospital admission in which she was admitted to [facility] hearing transferred to [facility] which required prolonged intubation and tracheostomy. Patient was recently discharged to recent D/C to [facility] ago. Patient has had increased sputum production and cough. Patient has past medical history of non- small cell lung cancer stage III, CVA, COPD, GERD, hyperlipidemia, osteoarthritis,chronic back pain and depression. Chest x-ray completed in ER showing right lower lobe consolidation with bilateral pleural effusions. Patient's WBC elevated at 10.9. Patient also have a lactic acid of 2.1. UA negative. Patient's blood pressure low. Patient started on Levophed and transferred to the ICU. Dr. Jackson has been consulted for critical care. Patient started on vancomycin and Zosyn for antibiotic. Blood urine and sputum cultures ordered. At this time patient is on mechanical ventilation resting comfortably in bed. Patient is following commands. On 12/04/2018 patient maintained on mechanical ventilation but awake and alert. Patient remains in intensive care unit on Levophed for pressure support. Patient reports that she feels better. Patient currently on vancomycin and Maxipime for antibiotics. Infectious disease and pulmonary services are following. White Blood cell 16.7. Blood,urine and sputum cultures pending On 12/05/2018 patient rates on mechanical ventilation but awake and alert following commands. patient reports that she feels overall improved. white blood cell improving to 13.6. At this time patient denies chest pain or shortness breath. Patient denies nausea vomiting diarrhea denies any urinary b urning or frequency 12/06/2018 patient is alert and awake following commands. Patient remains on m echanical ventilation. Patient has been off pressure support medication for 24 hours. Infectious disease and pulmonary following. At this time patient denies chest pain or shortness breath. Patient denies nausea vomiting or diarrhea. Patient denies any urinary burning or frequency. Objective - Vital Signs Vital signs: Vital Signs Temp 98.4 F 12/06/18 09:00 Pulse 84 12/06/18 11:00 Resp 10 L 12/06/18 11:00 BP 104/70 12/06/18 11:00 Pulse Ox 97 05/30/19 11:00 Intake & Output 12/05/18 12/06/18 12/06/18 18:59 06:59 18:59 Intake Total 2388.77 1450 1115 Output Total 1270 1315 1120 Balance 1118.77 135 -5 Weight 69 kg Intake: IV 340 120 775 Cefepime 2 gm In Sodium 100 Chloride 0.9% 100 ml @ 200 mls/hr IVPB Q12H [facility] Rx#:[id number] Dextrose 5%-0.9% NaCl 1, 400 000 ml @ 125 mls/hr IV . Q8H [facility] Rx#:[id number] Normal Saline Carrier 90 120 25 Vancomycin 1,250 mg In 250 250 Sodium Chloride 0.9% 250 ml @ 125 mls/hr IVPB Q8H [facility] Rx#:[id number] Intake, IV Titration 1523.77 475 Amount Cefepime 2 gm In Sodium 100 100 Chloride 0.9% 100 ml @ 200 mls/hr IVPB Q12H [facility] Rx#:[id number] Dextrose 5%-0.9% NaCl 1, 1375 125 000 ml @ 125 mls/hr IV . Q8H [facility] Rx#:[id number] Norepinephrine 32 mg In 48.77 Sodium Chloride 0.9% 218 ml @ 0.05 MCG/KG/MIN 1. 305 mls/hr IV .Q24H [facility] Rx#:[id number] Vancomycin 1,250 mg In 250 Sodium Chloride 0.9% 250 ml @ 125 mls/hr IVPB Q8H [facility] Rx#:[id number] Oral 250 Tube Feeding 375 515 220 Other 150 90 120 Output: Urine 1270 1315 1120 Other: Voiding Method Indwelling Catheter Indwelling Catheter Indwelling Catheter - Exam Head normocephalic Neck supple. Tracheostomy in place Lungs diminished with bilateral rhonchi. Heart regular rate and rhythm S1-S2, no rub or gallop Abdomen is soft nontender nondistended positive bowel sounds no hepatosplenomegaly. PEG tube in place Extremities no edema Neuro follows commands. On mechanical ventilation - Labs CBC & Chem 7: 12/06/18 05:45 12/06/18 05:45 Labs: Abnormal Lab Results - Last 24 Hours (Table) 12/05/18 12/05/18 12/05/18 Range/Units 12:09 17:09 23:44 WBC (3.8-10.6) k/uL RBC (3.80-5.40) m/uL Hgb (11.4-16.0) gm/dL Hct (34.0-46.0) % MCV (80.0-100.0) fL MCHC (31.0-37.0) g/dL RDW (11.5-15.5) % Chloride (98-107) mmol/L Creatinine (0.52-1.04) mg/dL Glucose (74-99) mg/dL POC Glucose (mg/dL) 118 H 138 H 138 H (75-99) mg/dL Calcium (8.4-10.2) mg/dL 12/06/18 12/06/18 12/06/18 Range/Units 05:32 05:45 05:45 WBC 13.3 H (3.8-10.6) k/uL RBC 3.12 L (3.80-5.40) m/uL Hgb 9.4 L (11.4-16.0) gm/dL Hct 32.5 L (34.0-46.0) % MCV 104.0 H (80.0-100.0) fL MCHC 28.9 L (31.0-37.0) g/dL RDW 16.9 H (11.5-15.5) % Chloride 111 H (98-107) mmol/L Creatinine 0.35 L (0.52-1.04) mg/dL Glucose 152 H (74-99) mg/dL POC Glucose (mg/dL) 165 H (75-99) mg/dL Calcium 8.3 L (8.4-10.2) mg/dL 12/06/18 Range/Units 06:03 WBC (3.8-10.6) k/uL RBC (3.80-5.40) m/uL Hgb (11.4-16.0) gm/dL Hct (34.0-46.0) % MCV (80.0-100.0) fL MCHC (31.0-37.0) g/dL RDW (11.5-15.5) % Chloride (98-107) mmol/L Creatinine (0.52-1.04) mg/dL Glucose (74-99) mg/dL POC Glucose (mg/dL) 160 H (75-99) mg/dL Calcium (8.4-10.2) mg/dL Microbiology - Last 24 Hours (Table) 12/02/18 22:52 Blood Culture - Preliminary Blood No Growth after 72 hours 12/03/18 09:30 Gram Stain - Preliminary Sputum Sputum Culture - Preliminary Streptococcus pneumoniae 12/02/18 23:30 Gram Stain - Preliminary Sputum Sputum Culture - Preliminary Streptococcus pneumoniae Assessment and Plan Assessment: 1. Sepsis present on admission related to pneumonia. Chest x-ray completed showing right lower lobe consolidation. Bilateral pleural effusions. Patient admitted to the intensive care unit. Initial lactic acid 2.1. Blood urine and sputum cultures have been ordered. White blood cell 16.4. Infectious disease following. Patient on cefepime and Vanco. Sputum culture currently growing Streptococcus pneumoniae. Repeat chest x-ray completed showing suspected sickle cell congestive heart failure mild pulmonary vascular congestion stable [id number] pleural effusions or airspace disease. Likely atelectasis multifocal pneumonia and parapneumonic effusions are an alernative consideration 2. Hypotension related to above. Patient maintained on Levophed. Resolved 3. History of non-small cell lung stage III adenocarcinoma 4. History of recent prolonged hospital admission in which she was transferred to [facility]. Patient was on mechanical ventilation for prolonged time requiring tracheostomy 5. Acute on chronic respiratory failure. Does have tracheostomy in place currently on mechanical ventilation 6. Bilateral pleural effusions. Pulmonary services have been consulted 7. History of COPD 8. History of CVA 9. History of osteoarthritis 10. History of hyperlipidemia 11. History of fibromyalgia 12. History of depression 13. Ex-smoker. Patient is smoking history of half-pack per day for 30 years 14. Bilateral lower extremity neuropathy. Patient started on Lyrica DVT prophylaxis heparin. GI prophylaxis Protonix I performed an examination of the patient and discussed their management with the Nurse Practitioner. I have reviewed the Nurse Practitioner's notes and agree with the documented findings and plan of care
--- NOTE | 2018-12-06 12:09 | P.PN ---
Subjective Progress Note Date: 12/06/18 Principal diagnosis: Acute sepsis, septic shock, and bilateral pneumonia with sepsis. This is a very pleasant 63-year-old female patient who follows with Dr. Benoit as her primary care physician. She has a history of CVA/TIA, fibromyalgia, gastroesophageal reflux disease, hyperlipidemia, hypothyroidism, chronic back pain, depression. She also has a history of chronic tobacco dependence, oxygen dependent chronic obstructive pulmonary disease with an FEV1 value of 56% of pre dicted, and non-small cell lung cancer stage III adenocarcinoma. She follows with Dr. Fan in our office. This was diagnosed by an FNA of a left upper lobe lesion by IR in November 2016. She had received concurrent chemoradiation with subsequent additional chemotherapy and then placed on maintenance mmunotherapy of Imfinzi back in December 2017. Her last PET scan in March 2018 revealed continued left upper lobe mass with irregular margins extending to the pleural surface, spiculated appearance but was stable compared to previous and October 2017. The SUV value was only 1.7. Subsequent computed tomography scan of the chest in July 2018 revealed a stable and slightly smaller spiculated mass of the left upper lobe measuring 2.5 x 2.4 cm versus 3.0 x 2.6 previous. No evidence of recurrence or metastasis. The patient was in the hospital back in early September 2018 and she was having ongoing issues with nausea vomiting profound weakness and fatigue. She decided to stop taking the immunotherapy. She had been treated for his COPD exacerbation 08/22/[address] our office by Dr. Fan where she received steroids and Bactrim. She did improve for the first week or so. She presented to the emergency room yesterday with complaints of increasing shortness of breath cough and congestion. She did have some lower extremity edema. She was still quite weak and fatigued. ome dyspnea on exertion. The patient was discharged home on 09/17/2018 as the patient shortness of breath improved and the patient recovered from her acute COPD exacerbation and she was discharged home on her usual routine medications which included also morphine sulfate 30 mg by mouth twice a day Percocet 04/11/2025 every 6 hours and a when necessary basis. In terms of her lung medication she was maintained on a combi nation of Symbicort and Incruse. She is also on Synthroid 25 g by mouth daily. She was given Lasix to be taken on an as needed basis. The patient subsequently came back to our hospital on 09/29/2018 because of altered mental status. According to the family the patient was acting weird. She was acting unusual and she was confused. She was also very weak and she was having episodes of fall. I do see a bruise over her forehead. The family told that she did not have any active had trauma. No seizure activity. No neck stiffness. No documented fever. She was thrashing significantly yesterday. A CAT scan of the head was done that showed no acute process. CAT scan of abdomen and pelvis was done that showed urinary bladder distention along with extensive colonic stool. The patient's ammonia level was at 28. Urine and blood cultures were ordered. The influenza screen was negative. She did not have any neck stiffness. No fever. She was at times morning. Other times she would open up her eyes and follows some simple commands. I was told that this is an improvement in her condition compared to yesterday. She was able to follow some simple commands however she has not been consistent in following orders. His speech is minimal and the patient may safely worse. She denies being in pain. Urine toxin was ordered. She was given a dose of Narcan here in the ICU without much improvement. Based on all this, I intubated the patient at that time and moved to the intensive care unit. Lumbar puncture was done and was negative and assess the causes for this patient altered mental status was not established. The patient was chest at [facility]. She underwent prolonged hospitalization during which she required intubation mechanical ventilation tracheostomy tube insertion PEG tube insertion and following that the patient was discharged to [facility] on the [place] where she was undergoing rehabilitation. It seems that the patient regained her mentation and she was communicating well. I'm not sure of the details of her presentation at [facility] The patient came in yesterday to the burst department complaining of worsening shortness of breath. Note that the patient has a tracheostomy tube in place. She was quite weak and hypotensive and lethargic. In the burst department the patient was found to have bilateral lower lobe consolidation pleural effusions. White cell count was at 10.9. Lactic acid level was at 2.1. Blood pressure was quite low. The patient was given IV fluids and the patient was started on pressors. She was also started on a combination of Zosyn and vancomycin as dosed antibiotics for pneumonia. Blood cultures of been sent. Sputum cultures of been sent. The patient subsequently was attached to mechanical ventilator. Currently, the patient is mechanically ventilated. The patient is an assist- control mode of ventilation. The patient is an FiO2 of 60% with a tidal volume of 350 the respiratory rate of 18 and 5 of PEEP. The patient's blood gases showed a pH of 7.3 with a pCO2 of 53 and pO2 of 74. The patient received IV fluids and currently she is on levo fed running at 0.2 g per KG per minute. He r white cell count is 1 is at 18.4. Despite all this, she is arousable. He is following simple commands. She is not requiring any sedation. She is currently in normal sinus rhythm. She had a triple lumen catheter in her right femoral vein. Denies having any chest pain. Her lactic acid level dropped from 2.1 down to 1.5. Reevaluated today on 12/04/2018, patient remains on mechanical ventilation, she is presently on assist control rate of 18 tidal volume of 350 FiO2 of 50% and PEEP of 5. Remains on Levophed at 5.5 mcg/m, she is also on cefepime and vancomycin. Chest x-ray clearly shows evidence of pneumonia, and some chronic parenchymal changes with small bilateral pleural effusions and atelectasis. Patient had a WBC count of 16.7 hemoglobin of 9.2 ABG showed a pO2 of 97 pCO2 of 43 pH of 7.39. Electrolytes and renal profile are normal. Reevaluated today on 12/05/2018, remains on mechanical ventilation, she is presently on tidal volume of 350 assist-control rate of 18 FiO2 is down to 40% from 50% earlier, and her PEEP is 5. Remains on antibiotics, and requiring norepinephrine at 0.12 mcg/kg/m. Surprisingly the patient is on mechanical ventilation, but fully awake, responsive, asking to be fed, however I plan to have a swallow evaluation on this patient, a bit reluctant to start feeding while she is on mechanical ventilation. Patient is asking for coffee. She was given a trial of weaning yesterday from mechanical ventilation and she was placed on a trach collar, lasted about 2 hours and had to be placed back on mechanical ventilation. Sputum today is positive for Streptococcus pneumonia and the patient is on antibiotics, being followed by infectious disease. Initially placed on vancomycin and Zosyn . WBC count is 13.6 hemoglobin is 9 ABG showed a pO2 of 132 pCO2 of 55 pH of 7.28. Basic metabolic profile is relatively normal. Chest x-ray continues to show significant right lower lobe consolidation consistent with pneumonia and her left pleural effusion is improved. Reevaluated today on 12/06/2018, remains on mechanical ventilation, presently on tidal volume of 350 assist-control rate 18 FiO2 40% and PEEP of 5. Patient tolerated weaning yesterday for about 10 hours, went on a trach collar. Early this morning she was switched back to mechanical ventilation assist control mode, a was noted to be more dyspneic, and more short of breath. Patient is on IV fluids which I plan to cut down since her chest x-ray is showing mild interstitial edema, and the patient will receive diuretics today. She is not requiring any pressors. Hemodynamically stable. Remains on enteral feeding via PEG tube. And that is being well-tolerated. Chest x-ray is a bit concerning to me today, hence diuretics were added. In the meantime the patient remains empir ically on broad-spectrum antibiotics. Remains on cefepime and vancomycin. Objective - Vital Signs Vital signs: Vital Signs Temp 98.4 F 12/06/18 09:00 Pulse 84 12/06/18 11:00 Resp 10 L 12/06/18 11:00 BP 104/70 12/06/18 11:00 Pulse Ox 97 12/06/18 11:00 Intake & Output 12/05/18 12/06/18 12/06/18 18:59 06:59 18:59 Intake Total 2388.77 1450 1115 Output Total 1270 1315 1120 Balance 1118.77 135 -5 Weight 69 kg Intake: IV 340 120 775 Cefepime 2 gm In Sodium 100 Chloride 0.9% 100 ml @ 200 mls/hr IVPB Q12H [facility] Rx#:[id number] Dextrose 5%-0.9% NaCl 1, 400 000 ml @ 125 mls/hr IV . Q8H [facility] Rx#:[id number] Normal Saline Carrier 90 120 25 Vancomycin 1,250 mg In 250 250 Sodium Chloride 0.9% 250 ml @ 125 mls/hr IVPB Q8H [facility] Rx#:[id number] Intake, IV Titration 1523.77 475 Amount Cefepime 2 gm In Sodium 100 100 Chloride 0.9% 100 ml @ 200 mls/hr IVPB Q12H [facility] Rx#:[id number] Dextrose 5%-0.9% NaCl 1, 1375 125 000 ml @ 125 mls/hr IV . Q8H [facility] Rx#:[id number] Norepinephrine 32 mg In 48.77 Sodium Chloride 0.9% 218 ml @ 0.05 MCG/KG/MIN 1. 305 mls/hr IV .Q24H [facility] Rx#:[id number] Vancomycin 1,250 mg In 250 Sodium Chloride 0.9% 250 ml @ 125 mls/hr IVPB Q8H [facility] Rx#:[id number] Oral 250 Tube Feeding 375 515 220 Other 150 90 120 Output: Urine 1270 1315 1120 Other: Voiding Method Indwelling Catheter Indwelling Catheter Indwelling Catheter - Exam Physical Exam: Revealed a 63-year-old female, pleasant, awake, follows instructions, on mechanical ventilation, via tracheostomy. Head: Atraumatic, normocephalic, HEENT:[Neck is supple.] [No neck masses.] [No thyromegaly.] [No JVD.] PERRLA, EOMI, no icterus, tracheostomy is intact. Moist mucous membranes. Chest: [Crackles and rhonchi bilaterally, no wheezes. Symmetrical chest expansion. No chest wall tenderness.] Cardiac Exam: [Normal S1 and S2, no S3 gallop, no murmur.] Abdomen: [Soft, nontender, no megaly, no rebound, no guarding, normal bowel sounds.] PEG tube is intact. Extremities: [No clubbing, no edema, no cyanosis.] Neurological Exam: [No focal neurologic deficit. Alert and oriented 3, follows simple instructions. Psychiatric: Normal mood, affect and mental status examination. Lymphatics: No lymphadenopathy. Skin: No rashes. ] - Labs CBC & Chem 7: 12/06/18 05:45 12/06/18 05:45 Labs: Abnormal Lab Results - Last 24 Hours (Table) 12/05/18 12/05/18 12/05/18 Range/Units 12:09 17:09 23:44 WBC (3.8-10.6) k/uL RBC (3.80-5.40) m/uL Hgb (11.4-16.0) gm/dL Hct (34.0-46.0) % MCV (80.0-100.0) fL MCHC (31.0-37.0) g/dL RDW (11.5-15.5) % Chloride (98-107) mmol/L Creatinine (0.52-1.04) mg/dL Glucose (74-99) mg/dL POC Glucose (mg/dL) 118 H 138 H 138 H (75-99) mg/dL Calcium (8.4-10.2) mg/dL 12/06/18 12/06/18 12/06/18 Range/Units 05:32 05:45 05:45 WBC 13.3 H (3.8-10.6) k/uL RBC 3.12 L (3.80-5.40) m/uL Hgb 9.4 L (11.4-16.0) gm/dL Hct 32.5 L (34.0-46.0) % MCV 104.0 H (80.0-100.0) fL MCHC 28.9 L (31.0-37.0) g/dL RDW 16.9 H (11.5-15.5) % Chloride 111 H (98-107) mmol/L Creatinine 0.35 L (0.52-1.04) mg/dL Glucose 152 H (74-99) mg/dL POC Glucose (mg/dL) 165 H (75-99) mg/dL Calcium 8.3 L (8.4-10.2) mg/dL 12/06/18 Range/Units 06:03 WBC (3.8-10.6) k/uL RBC (3.80-5.40) m/uL Hgb (11.4-16.0) gm/dL Hct (34.0-46.0) % MCV (80.0-100.0) fL MCHC (31.0-37.0) g/dL RDW (11.5-15.5) % Chloride (98-107) mmol/L Creatinine (0.52-1.04) mg/dL Glucose (74-99) mg/dL POC Glucose (mg/dL) 160 H (75-99) mg/dL Calcium (8.4-10.2) mg/dL Microbiology - Last 24 Hours (Table) 12/02/18 22:52 Blood Culture - Preliminary Blood No Growth after 72 hours 12/03/18 09:30 Gram Stain - Preliminary Sputum Sputum Culture - Preliminary Streptococcus pneumoniae 12/02/18 23:30 Gram Stain - Preliminary Sputum Sputum Culture - Preliminary Streptococcus pneumoniae Assessment and Plan Assessment: Impression: 1 acute on chronic hypoxic respiratory failure secondary to bilateral pneumonia secondary to Streptococcus pneumonia as documented from the sputum culture. 2 acute sepsis and septic shock secondary to pneumonia patient required fluid boluses and pressors. Presently off norepinephrine, and hemodynamically stable 3 stage IV non-small cell lung cancer post-chemoradiation therapy and was on immunotherapy. 4 severe COPD with acute exacerbation 5 hypertension 6 chronic back pain and fibromyalgia and arthritis 7 history of depression 8 history of recent prolonged course of mechanical ventilation in September of 2018 requiring tracheostomy and PEG tube placement Recommendation: Continue ventilatory support, Continue daily trials of weaning with trach collar patient tolerated weaning for about 10 hours yesterday. Continue antibiotics for Streptococcus pneumonia Continue nutritional support via PEG tube. Continue GI and DVT prophylaxis Continue bronchodilators. Swallow evaluation to be performed today when the patient is back on trach collar, may allow oral feeding when on trach collar. Continue to follow in the ICU closely, patient is not ready to be weaned extubated or transfer. We'll continue to follow. Critical care time is 34 minutes Time with Patient: Greater than 30
[2018-12-06 12:22] LABS: Glucose,Whole Blood 126 mg/dL (75-99)
[2018-12-06 18:41] LABS: Glucose,Whole Blood 143 mg/dL (75-99)
--- NOTE | 2018-12-06 20:11 | PN ---
PROGRESS NOTE DATE OF SERVICE: 12/06/2018. REASON FOR FOLLOWUP: Strep pneumoniae pneumonia. INTERVAL HISTORY: The patient is currently afebrile. The patient is breathing comfortably on trach collar. Denies having any chest pain or shortness of breath. Occasional cough. Has been eating, drinking normally. No nausea. No vomiting or any diarrhea. PHYSICAL EXAMINATION: Blood pressure is 132/73 with a pulse of 87, temperature 98.2. He is 92% on trach collar. General description shows an elderly female lying in bed in no distress. Respiratory system: Unlabored breathing. Clear to auscultation anteriorly. Heart S1, S2. Regular rate and rhythm. ABDOMEN: Soft. No tenderness. LABS: Hemoglobin 9.4, white count 13.3, BUN of 7, creatinine 0.35. Sputum culture with strep pneumo which is sensitive to ceftriaxone. DIAGNOSTIC IMPRESSION AND PLAN: Patient with right lower lobe pneumonia. Sputum finalized with strep pneumo. Antibiotic will be adjusted to Rocephin 2 g daily. Discontinue cefepime and the vancomycin and monitor clinical course closely. Continue supportive care. MMODL / IJN: [id number] /
[2018-12-07] MEDS: ALBUTEROL NEBULIZED 2.5 MG/3 ML INHALATION SCH ×4 (00:19→20:00)
[2018-12-07 00:22] LABS: Glucose,Whole Blood 164 mg/dL (75-99)
[2018-12-07] MEDS: INSULIN ASPART (NovoLOG) 100 UNIT/ML VIAL SQ SCH ×4 (00:26→17:45)
[2018-12-07] MEDS: HEPARIN SODIUM,PORCINE 5,000 UNIT/ML 1 ML VIAL SQ SCH ×3 (00:26→16:47)
[2018-12-07 05:40] LABS: Glucose,Whole Blood 156 mg/dL (75-99)
[2018-12-07] MEDS: LEVOTHYROXINE 50 MCG TAB PO SCH (05:47)
[2018-12-07] MEDS: NOREPINEPHRINE 32 MG in SODIUM CHLORIDE 0.9% 218 ML IV SCH (05:49)
[2018-12-07] MEDS: BUDESONIDE 1 MG/2 ML NEBU INHALATION SCH ×2 (07:06→20:00)
[2018-12-07] MEDS: ONDANSETRON 4 MG/2 ML VIAL IVP PRN (07:15)
[2018-12-07] MEDS ORDERED: VANCOMYCIN TROUGH DUE 1 EACH MISC MISCELLANE ONE (08:00)
[2018-12-07] MEDS: QUEtiapine 50 MG TAB PO SCH ×2 (08:13→20:22)
[2018-12-07] MEDS: AMIODARONE 200 MG TAB PO SCH (08:14)
[2018-12-07] MEDS: oxyCODONE ER 10 MG TAB.ER.12H PO SCH ×2 (08:14→23:50)
[2018-12-07] MEDS: PANTOPRAZOLE 40 MG/10 ML VIAL IV SCH (08:14)
[2018-12-07] MEDS: SENNOSIDES-DOCUSATE SODIUM 1 EACH TAB PO SCH ×2 (08:14→20:22)
[2018-12-07] MEDS: FUROSEMIDE 10 MG/ML 4 ML VIAL IV SCH ×2 (08:15→20:21)
[2018-12-07] MEDS: CHLORHEXIDINE GLUCONATE 15 ML CUP MUCOUS MEM SCH ×2 (08:15→20:21)
[2018-12-07] MEDS: PREGABALIN 50 MG CAP PO SCH ×2 (08:22→20:21)
--- NOTE | 2018-12-07 08:26 | XR ---
EXAMINATION TYPE: XR chest 1V portable DATE OF EXAM: 12/07/2018 COMPARISON: 12/06/2018 HISTORY: SOB, Follow Up FINDINGS: Indwelling tubes and catheters are unchanged. Tracheostomy tube is in place. Persistent right perihilar and right basilar infiltrate with bilateral effusions. Stable appearance of the cardio-mediastinal structures at this time. Pleural effusion unchanged. IMPRESSION: 1. Stable portable chest. Clinical correlation and follow up until resolution is recommended.
--- NOTE | 2018-12-07 10:13 | P.PN ---
Subjective Progress Note Date: 12/07/18 This is a 63-year-old female patient who presented to the hospital with worsening shortness of breath. Patient has a past medical history of recent hospital admission in which she was admitted to [facility] hearing transferred to [facility] which required prolonged intubation and tracheostomy. Patient was recently discharged to recent D/C to [facility] ago. Patient has had increased sputum production and cough. Patient has past medical history of non- small cell lung cancer stage III, CVA, COPD, GERD, hyperlipidemia, osteoarthritis,chronic back pain and depression. Chest x-ray completed in ER showing right lower lobe consolidation with bilateral pleural effusions. Patient's WBC elevated at 10.9. Patient also have a lactic acid of 2.1. UA negative. Patient's blood pressure low. Patient started on Levophed and transferred to the ICU. Dr. Jackson has been consulted for critical care. Patient started on vancomycin and Zosyn for antibiotic. Blood urine and sputum cultures ordered. At this time patient is on mechanical ventilation resting comfortably in bed. Patient is following commands. On 12/04/2018 patient maintained on mechanical ventilation but awake and alert. Patient remains in intensive care unit on Levophed for pressure support. Patient reports that she feels better. Patient currently on vancomycin and Maxipime for antibiotics. Infectious disease and pulmonary services are following. White Blood cell 16.7. Blood,urine and sputum cultures pending On 12/05/2018 patient rates on mechanical ventilation but awake and alert following commands. patient reports that she feels overall improved. white blood cell improving to 13.6. At this time patient denies chest pain or shortness breath. Patient denies nausea vomiting diarrhea denies any urinary b urning or frequency 12/06/2018 patient is alert and awake following commands. Patient remains on m echanical ventilation. Patient has been off pressure support medication for 24 hours. Infectious disease and pulmonary following. At this time patient denies chest pain or shortness breath. Patient denies nausea vomiting or diarrhea. Patient denies any urinary burning or frequency. On 12/07/2018 patient is awake alert and awake following commands. Patient has been taken off mechanical ventilation placed on trach mask. Patient remains in the intensive care unit but showing improvement. Patient has been off pressure support medication for over 48 hours. Infectious disease and pulmonary are following. Antibiotics adjusted per ID. At this time patient denies chest pain or shortness of breath. Patient denies nausea vomiting or diarrhea. Patient denies any urinary burning or frequency Objective - Vital Signs Vital signs: Vital Signs Temp 98.8 F 12/07/18 09:00 Pulse 87 12/07/18 09:00 Resp 6 L 12/07/18 09:00 BP 113/67 12/07/18 09:00 Pulse Ox 98 12/07/18 09:00 Intake & Output 12/06/18 12/07/18 12/07/18 18:59 06:59 18:59 Intake Total 1735 1200 300 Output Total 3945 2470 325 Balance -2210 -1270 -25 Weight 65.9 kg Intake: IV 1020 415 60 Cefepime 2 gm In Sodium 100 Chloride 0.9% 100 ml @ 200 mls/hr IVPB Q12H [facility] Rx#:[id number] Dextrose 5%-0.9% NaCl 1, 575 300 50 000 ml @ 125 mls/hr IV . Q8H [facility] Rx#:[id number] Normal Saline Carrier 95 65 10 Vancomycin 1,250 mg In 250 Sodium Chloride 0.9% 250 ml @ 125 mls/hr IVPB Q8H [facility] Rx#:[id number] cefTRIAXone 2 gm In 50 Sodium Chloride 0.9% 50 ml @ 100 mls/hr IVPB Q24HR [facility] Rx#:[id number] Oral 80 120 Tube Feeding 535 585 90 Other 180 120 30 Output: Urine 3945 2470 325 Other: Voiding Method Indwelling Catheter Indwelling Catheter Indwelling Catheter - Exam Head normocephalic Neck supple. Tracheostomy in place Lungs diminished with bilateral rhonchi. Heart regular rate and rhythm S1-S2, no rub or gallop Abdomen is soft nontender nondistended positive bowel sounds no hepatosplenomegaly. PEG tube in place Extremities no edema Neuro follows commands. On mechanical ventilation - Labs CBC & Chem 7: 12/06/18 05:45 12/06/18 14:07 Labs: Abnormal Lab Results - Last 24 Hours (Table) 12/06/18 12/06/18 12/07/18 Range/Units 12:19 18:39 00:18 POC Glucose (mg/dL) 126 H 143 H 164 H (75-99) mg/dL 12/07/18 Range/Units 05:38 POC Glucose (mg/dL) 156 H (75-99) mg/dL Microbiology - Last 24 Hours (Table) 12/02/18 22:52 Blood Culture - Preliminary Blood No Growth after 96 hours 12/03/18 09:30 Gram Stain - Final Sputum Sputum Culture - Final Streptococcus pneumoniae 12/02/18 23:30 Gram Stain - Final Sputum Sputum Culture - Final Streptococcus pneumoniae Assessment and Plan Assessment: 1. Sepsis present on admission related to pneumonia. Chest x-ray completed showing right lower lobe consolidation. Bilateral pleural effusions. Patient admitted to the intensive care unit. Initial lactic acid 2.1. Blood urine and sputum cultures have been ordered. White blood cell 16.4. Infectious disease following. Patient on cefepime and Vanco. Sputum culture currently growing Streptococcus pneumoniae. Repeat chest x-ray completed showing suspected sickle cell congestive heart failure mild pulmonary vascular congestion stable sm [id number] pleural effusions or airspace disease. Likely atelectasis multifocal pneumonia and parapneumonic effusions are an alernative consideration. Sputum culture growing Streptococcus pneumoniae. Antibiotics adjusted to Rocephin per infectious disease. Patient taken off mechanical venti lation and placed on trach collar 2. Hypotension related to above. Patient maintained on Levophed. Resolved 3. History of non-small cell lung stage III adenocarcinoma 4. History of recent prolonged hospital admission in which she was transferred to [facility]. Patient was on mechanical ventilation for prolonged time requiring tracheostomy 5. Acute on chronic respiratory failure. 6. Bilateral pleural effusions. Pulmonary services have been consulted 7. History of COPD 8. History of CVA 9. History of osteoarthritis 10. History of hyperlipidemia 11. History of fibromyalgia 12. History of depression 13. Ex-smoker. Patient is smoking history of half-pack per day for 30 years 14. Bilateral lower extremity neuropathy. Patient started on Lyrica DVT prophylaxis heparin. GI prophylaxis Protonix I performed an examination of the patient and discussed their management with the Nurse Practitioner. I have reviewed the Nurse Practitioner's notes and agree with the documented findings and plan of care
[2018-12-07 11:55] LABS: Glucose,Whole Blood 136 mg/dL (75-99)
--- NOTE | 2018-12-07 12:06 | P.PN ---
Subjective Progress Note Date: 12/07/18 Principal diagnosis: Acute sepsis, septic shock, and bilateral pneumonia with sepsis. This is a very pleasant 63-year-old female patient who follows with Dr. Benoit as her primary care physician. She has a history of CVA/TIA, fibromyalgia, gastroesophageal reflux disease, hyperlipidemia, hypothyroidism, chronic back pain, depression. She also has a history of chronic tobacco dependence, oxygen dependent chronic obstructive pulmonary disease with an FEV1 value of 56% of pre dicted, and non-small cell lung cancer stage III adenocarcinoma. She follows with Dr. Fan in our office. This was diagnosed by an FNA of a left upper lobe lesion by IR in November 2016. She had received concurrent chemoradiation with subsequent additional chemotherapy and then placed on maintenance mmunotherapy of Imfinzi back in December 2017. Her last PET scan in March 2018 revealed continued left upper lobe mass with irregular margins extending to the pleural surface, spiculated appearance but was stable compared to previous and October 2017. The SUV value was only 1.7. Subsequent computed tomography scan of the chest in July 2018 revealed a stable and slightly smaller spiculated mass of the left upper lobe measuring 2.5 x 2.4 cm versus 3.0 x 2.6 previous. No evidence of recurrence or metastasis. The patient was in the hospital back in early September 2018 and she was having ongoing issues with nausea vomiting profound weakness and fatigue. She decided to stop taking the immunotherapy. She had been treated for his COPD exacerbation 08/22/[address] our office by Dr. Fan where she received steroids and Bactrim. She did improve for the first week or so. She presented to the emergency room yesterday with complaints of increasing shortness of breath cough and congestion. She did have some lower extremity edema. She was still quite weak and fatigued. ome dyspnea on exertion. The patient was discharged home on 09/17/2018 as the patient shortness of breath improved and the patient recovered from her acute COPD exacerbation and she was discharged home on her usual routine medications which included also morphine sulfate 30 mg by mouth twice a day Percocet 04/11/2025 every 6 hours and a when necessary basis. In terms of her lung medication she was maintained on a combi nation of Symbicort and Incruse. She is also on Synthroid 25 g by mouth daily. She was given Lasix to be taken on an as needed basis. The patient subsequently came back to our hospital on 09/29/2018 because of altered mental status. According to the family the patient was acting weird. She was acting unusual and she was confused. She was also very weak and she was having episodes of fall. I do see a bruise over her forehead. The family told that she did not have any active had trauma. No seizure activity. No neck stiffness. No documented fever. She was thrashing significantly yesterday. A CAT scan of the head was done that showed no acute process. CAT scan of abdomen and pelvis was done that showed urinary bladder distention along with extensive colonic stool. The patient's ammonia level was at 28. Urine and blood cultures were ordered. The influenza screen was negative. She did not have any neck stiffness. No fever. She was at times morning. Other times she would open up her eyes and follows some simple commands. I was told that this is an improvement in her condition compared to yesterday. She was able to follow some simple commands however she has not been consistent in following orders. His speech is minimal and the patient may safely worse. She denies being in pain. Urine toxin was ordered. She was given a dose of Narcan here in the ICU without much improvement. Based on all this, I intubated the patient at that time and moved to the intensive care unit. Lumbar puncture was done and was negative and assess the causes for this patient altered mental status was not established. The patient was chest at [facility]. She underwent prolonged hospitalization during which she required intubation mechanical ventilation tracheostomy tube insertion PEG tube insertion and following that the patient was discharged to [facility] on the [place] where she was undergoing rehabilitation. It seems that the patient regained her mentation and she was communicating well. I'm not sure of the details of her presentation at [facility] The patient came in yesterday to the burst department complaining of worsening shortness of breath. Note that the patient has a tracheostomy tube in place. She was quite weak and hypotensive and lethargic. In the burst department the patient was found to have bilateral lower lobe consolidation pleural effusions. White cell count was at 10.9. Lactic acid level was at 2.1. Blood pressure was quite low. The patient was given IV fluids and the patient was started on pressors. She was also started on a combination of Zosyn and vancomycin as dosed antibiotics for pneumonia. Blood cultures of been sent. Sputum cultures of been sent. The patient subsequently was attached to mechanical ventilator. Currently, the patient is mechanically ventilated. The patient is an assist- control mode of ventilation. The patient is an FiO2 of 60% with a tidal volume of 350 the respiratory rate of 18 and 5 of PEEP. The patient's blood gases showed a pH of 7.3 with a pCO2 of 53 and pO2 of 74. The patient received IV fluids and currently she is on levo fed running at 0.2 g per KG per minute. He r white cell count is 1 is at 18.4. Despite all this, she is arousable. He is following simple commands. She is not requiring any sedation. She is currently in normal sinus rhythm. She had a triple lumen catheter in her right femoral vein. Denies having any chest pain. Her lactic acid level dropped from 2.1 down to 1.5. Reevaluated today on 12/04/2018, patient remains on mechanical ventilation, she is presently on assist control rate of 18 tidal volume of 350 FiO2 of 50% and PEEP of 5. Remains on Levophed at 5.5 mcg/m, she is also on cefepime and vancomycin. Chest x-ray clearly shows evidence of pneumonia, and some chronic parenchymal changes with small bilateral pleural effusions and atelectasis. Patient had a WBC count of 16.7 hemoglobin of 9.2 ABG showed a pO2 of 97 pCO2 of 43 pH of 7.39. Electrolytes and renal profile are normal. Reevaluated today on 12/05/2018, remains on mechanical ventilation, she is presently on tidal volume of 350 assist-control rate of 18 FiO2 is down to 40% from 50% earlier, and her PEEP is 5. Remains on antibiotics, and requiring norepinephrine at 0.12 mcg/kg/m. Surprisingly the patient is on mechanical ventilation, but fully awake, responsive, asking to be fed, however I plan to have a swallow evaluation on this patient, a bit reluctant to start feeding while she is on mechanical ventilation. Patient is asking for coffee. She was given a trial of weaning yesterday from mechanical ventilation and she was placed on a trach collar, lasted about 2 hours and had to be placed back on mechanical ventilation. Sputum today is positive for Streptococcus pneumonia and the patient is on antibiotics, being followed by infectious disease. Initially placed on vancomycin and Zosyn . WBC count is 13.6 hemoglobin is 9 ABG showed a pO2 of 132 pCO2 of 55 pH of 7.28. Basic metabolic profile is relatively normal. Chest x-ray continues to show significant right lower lobe consolidation consistent with pneumonia and her left pleural effusion is improved. Reevaluated today on 12/06/2018, remains on mechanical ventilation, presently on tidal volume of 350 assist-control rate 18 FiO2 40% and PEEP of 5. Patient tolerated weaning yesterday for about 10 hours, went on a trach collar. Early this morning she was switched back to mechanical ventilation assist control mode, a was noted to be more dyspneic, and more short of breath. Patient is on IV fluids which I plan to cut down since her chest x-ray is showing mild interstitial edema, and the patient will receive diuretics today. She is not requiring any pressors. Hemodynamically stable. Remains on enteral feeding via PEG tube. And that is being well-tolerated. Chest x-ray is a bit concerning to me today, hence diuretics were added. In the meantime the patient remains empir ically on broad-spectrum antibiotics. Remains on cefepime and vancomycin. Reevaluated today on 12/07/2018, patient was on mechanical ventilation until an hour ago. She was switched to a trach collar, and she seems to be tolerating the trach collar fairly well. She is on 50% FiO2. Seems to be comfortable, past her swallow evaluation, and she was given liquids to swallow while on trach collar. Overall the patient seems to be much better, breathing easier, much more comfortable today. Chest x-ray is basically about the same continues to show good sized infiltrate in the right lower lobe with consolidation, WBC count remains elevated at 13.3 hemoglobin is 9.4. Patient is hemodynamically stable. And she remains on antibiotics for Streptococcus pneumonia involving the right lower lobe. Objective - Vital Signs Vital signs: Vital Signs Temp 98.8 F 12/07/18 09:00 Pulse 86 12/07/18 11:39 Resp 18 12/07/18 10:00 BP 98/65 12/07/18 10:00 Pulse Ox 88 L 12/07/18 10:00 Intake & Output 12/06/18 12/07/18 12/07/18 18:59 06:59 18:59 Intake Total 1735 1200 330 Output Total 8378 9030 625 Balance -2210 -1270 -295 Weight 65.9 kg Intake: IV 1020 415 90 Cefepime 2 gm In Sodium 100 Chloride 0.9% 100 ml @ 200 mls/hr IVPB Q12H [facility] Rx#:[id number] Dextrose 5%-0.9% NaCl 1, 575 300 75 000 ml @ 125 mls/hr IV . Q8H [facility] Rx#:[id number] Normal Saline Carrier 95 65 15 Vancomycin 1,250 mg In 250 Sodium Chloride 0.9% 250 ml @ 125 mls/hr IVPB Q8H [facility] Rx#:[id number] cefTRIAXone 2 gm In 50 Sodium Chloride 0.9% 50 ml @ 100 mls/hr IVPB Q24HR [facility] Rx#:[id number] Oral 80 120 Tube Feeding 535 585 90 Other 180 120 30 Output: Urine 3945 2120 625 Other: Voiding Method Indwelling Catheter Indwelling Catheter Indwelling Catheter - Exam Physical Exam: Revealed a 63-year-old female, pleasant, awake, follows instruct ions, on trach collar at 50% FiO2. Head: Atraumatic, normocephalic, HEENT:[Neck is supple.] [No neck masses.] [No thyromegaly.] [No JVD.] PERRLA, EOMI, no icterus, tracheostomy is intact. Moist mucous membranes. Chest: [Crackles and rhonchi bilaterally, no wheezes. Symmetrical chest expansion. No chest wall tenderness.] Cardiac Exam: [Normal S1 and S2, no S3 gallop, no murmur.] Abdomen: [Soft, nontender, no megaly, no rebound, no guarding, normal bowel sounds.] PEG tube is intact. Extremities: [No clubbing, no edema, no cyanosis.] Neurological Exam: [No focal neurologic deficit. Alert and oriented 3, follows simple instructions. Psychiatric: Normal mood, affect and mental status examination. Lymphatics: No lymphadenopathy. Skin: No rashes. ] - Labs CBC & Chem 7: 12/06/18 05:45 12/06/18 14:07 Labs: Abnormal Lab Results - Last 24 Hours (Table) 12/06/18 12/06/18 12/07/18 Range/Units 12:19 18:39 00:18 POC Glucose (mg/dL) 126 H 143 H 164 H (75-99) mg/dL 12/07/18 12/07/18 Range/Units 05:38 11:50 POC Glucose (mg/dL) 156 H 136 H (75-99) mg/dL Microbiology - Last 24 Hours (Table) 12/02/18 22:52 Blood Culture - Preliminary Blood No Growth after 96 hours 12/03/18 09:30 Gram Stain - Final Sputum Sputum Culture - Final Streptococcus pneumoniae 12/02/18 23:30 Gram Stain - Final Sputum Sputum Culture - Final Streptococcus pneumoniae Assessment and Plan Assessment: Impression: 1 acute on chronic hypoxic respiratory failure secondary to bilateral pneumonia secondary to Streptococcus pneumonia as documented from the sputum culture. 2 acute sepsis and septic shock secondary to pneumonia patient required fluid boluses and pressors. Presently off norepinephrine, and hemodynamically stable 3 stage IV non-small cell lung cancer post-chemoradiation therapy and was on immunotherapy. 4 severe COPD with acute exacerbation 5 hypertension 6 chronic back pain and fibromyalgia and arthritis 7 history of depression 8 history of recent prolonged course of mechanical ventilation in September of 2018 requiring tracheostomy and PEG tube placement Recommendation: Continue on trach collar. May have to be placed back on mechanical ventilation if needed. Patient will be monitored closely in the IC Continue antibiotics for Streptococcus pneumonia Continue nutritional support via PEG tube. Continue GI and DVT prophylaxis Continue bronchodilators. Swallow evaluation was done at bedside, and the patient passed the swallow evaluation. Hence she will be allowed to swallow liquids while on trach collar. Continue to follow in the ICU closely, prognosis is relatively guarded considering her multiple comorbidities. Time with Patient: Less than 30
[2018-12-07 12:31] LABS: Blood Urea Nitrogen 12 mg/dL (7-17); Calcium 8.3 mg/dL (8.4-10.2); Chloride 95 mmol/L (98-107); Glucose 139 mg/dL (74-99); Sodium 139 mmol/L (137-145)
[2018-12-07 12:38] LABS: Anion Gap 3 mmol/L
[2018-12-07 12:44] LABS: Carbon Dioxide 41 mmol/L (22-30)
[2018-12-07 13:23] LABS: Anisocytosis Slight; HCT 32.3 % (34.0-46.0); HGB 9.6 gm/dL (11.4-16.0); Hypochromasia Slight; MCH 29.1 pg (25.0-35.0); MCHC 29.7 g/dL (31.0-37.0); MCV 97.8 fL (80.0-100.0); Macrocytosis Slight; Mean Platelet Volume 7.5; Platelet Count 301 k/uL (150-450); RDW 16.7 % (11.5-15.5); WBC 13.8 k/uL (3.8-10.6)
[2018-12-07] MEDS: LORazepam 0.5 MG TAB PO PRN (17:45)
[2018-12-07 17:54] LABS: Glucose,Whole Blood 137 mg/dL (75-99)
--- NOTE | 2018-12-07 19:48 | PN ---
PROGRESS NOTE DATE OF SERVICE: 12/07/2018. REASON FOR FOLLOW UP: Strep pneumo pneumoniae. INTERVAL HISTORY: The patient is currently afebrile. Patient has been breathing comfortably on trach collar. No chest pain. Occasional cough. Abdominal pain but no diarrhea. Some mild abdominal discomfort. No diarrhea. PHYSICAL EXAMINATION: Blood pressure is 129/62 with a pulse of 82, temperature 98.6. She is 95% on 40% FiO2. General description is an elderly female up in the bed in no distress. Respiratory system: Unlabored breathing. Clear to auscultation anteriorly. Heart S1, S2. Regular rate and rhythm. Abdomen soft, no tenderness. LABS: Hemoglobin 9.1, white count 13.8, BUN of 12, creatinine 0.44. Blood culture negative. DIAGNOSTIC IMPRESSION AND PLAN: Patient admitted to the hospital with acute respiratory distress in this patient who did have a right lower lobe pneumonia. Sputum positive for strep pneumo. The patient is currently covered with Rocephin 2 g daily to continue while monitoring her clinical course closely. Continue supportive care. MMODL / REN: [id number] /
[2018-12-07] MEDS: POTASSIUM BICARBONATE/CIT AC 20 MEQ TABLET.EFF NG-TUBE SCH (23:55)
[2018-12-08 00:18] LABS: Glucose,Whole Blood 148 mg/dL (75-99)
[2018-12-08] MEDS: HEPARIN SODIUM,PORCINE 5,000 UNIT/ML 1 ML VIAL SQ SCH ×3 (00:36→15:56)
[2018-12-08] MEDS: INSULIN ASPART (NovoLOG) 100 UNIT/ML VIAL SQ SCH ×4 (00:36→18:28)
[2018-12-08] MEDS: POTASSIUM BICARBONATE/CIT AC 20 MEQ TABLET.EFF NG-TUBE SCH (00:36)
[2018-12-08] MEDS: ALBUTEROL NEBULIZED 2.5 MG/3 ML INHALATION SCH ×2 (01:37→05:56)
[2018-12-08 05:50] LABS: Glucose,Whole Blood 136 mg/dL (75-99)
[2018-12-08] MEDS: BUDESONIDE 1 MG/2 ML NEBU INHALATION SCH ×2 (05:56→20:08)
[2018-12-08] MEDS: NOREPINEPHRINE 32 MG in SODIUM CHLORIDE 0.9% 218 ML IV SCH (06:08)
[2018-12-08] MEDS: LEVOTHYROXINE 50 MCG TAB PO SCH (06:08)
[2018-12-08 06:10] LABS: Anisocytosis Slight; HCT 26.3 % (34.0-46.0); HGB 8.5 gm/dL (11.4-16.0); Hypochromasia Slight; MCHC 32.5 g/dL (31.0-37.0); MCV 95.5 fL (80.0-100.0); Mean Platelet Volume 7.8; Platelet Count 250 k/uL (150-450); RBC 2.75 m/uL (3.80-5.40); RDW 17.3 % (11.5-15.5); WBC 11.8 k/uL (3.8-10.6)
[2018-12-08 06:19] LABS: Blood Urea Nitrogen 13 mg/dL (7-17); Calcium 8.1 mg/dL (8.4-10.2); Chloride 91 mmol/L (98-107); Glucose 132 mg/dL (74-99); Magnesium 1.4 mg/dL (1.6-2.3); Phosphorus 1.9 mg/dL (2.5-4.5); Potassium 3.3 mmol/L (3.5-5.1); Sodium 134 mmol/L (137-145)
[2018-12-08 06:26] LABS: Anion Gap 1 mmol/L
[2018-12-08 06:32] LABS: Carbon Dioxide 42 mmol/L (22-30)
[2018-12-08] MEDS ORDERED: Potassium Replacement Protocol 1 EACH MISC MISCELLANE PRN (07:03)
--- NOTE | 2018-12-08 07:36 | XR ---
EXAMINATION TYPE: XR chest 1V portable DATE OF EXAM: 12/08/2018 HISTORY: Tube placement. REFERENCE: Previous study dated 12/07/2018. FINDINGS: There is a tracheostomy tube in place. Its tip overlies the tracheal air column in this sin gle frontal projection. There is bibasilar airspace disease. There are bilateral effusions. The heart is upper limits of norm al in size. IMPRESSION: NO SIGNIFICANT INTERVAL CHANGE IN THE APPEARANCE OF THE CHEST.
[2018-12-08] MEDS: CHLORHEXIDINE GLUCONATE 15 ML CUP MUCOUS MEM SCH ×2 (09:05→20:38)
[2018-12-08] MEDS: FUROSEMIDE 10 MG/ML 4 ML VIAL IV SCH ×2 (09:05→20:38)
[2018-12-08] MEDS: PANTOPRAZOLE 40 MG/10 ML VIAL IV SCH (09:05)
[2018-12-08] MEDS: POTASSIUM PHOSPHATE 10 MMOL in SODIUM CHLORIDE 0.9% 100 ML IV SCH ×2 (09:05→12:13)
[2018-12-08] MEDS: SENNOSIDES-DOCUSATE SODIUM 1 EACH TAB PO SCH ×2 (09:06→20:41)
[2018-12-08] MEDS: POTASSIUM CHLORIDE ER 20 MEQ TAB.ER PO SCH ×2 (09:06→11:14)
[2018-12-08] MEDS: oxyCODONE ER 10 MG TAB.ER.12H PO SCH ×2 (09:07→20:38)
[2018-12-08] MEDS: AMIODARONE 200 MG TAB PO SCH (09:07)
[2018-12-08] MEDS: LORazepam 0.5 MG TAB PO PRN ×2 (09:07→16:48)
[2018-12-08] MEDS: methylPREDNISolone SOD SUCCI 40 MG/ML 1 ML VIAL IV SCH ×2 (09:21→15:56)
[2018-12-08] MEDS: MAGNESIUM SULFATE-D5W PMX 1 GM in DEXTROSE/WATER 1 100ML.BAG IVPB SCH ×3 (09:22→12:13)
[2018-12-08] MEDS: PREGABALIN 50 MG CAP PO SCH ×2 (09:24→20:40)
[2018-12-08] MEDS: QUEtiapine 50 MG TAB PO SCH ×2 (09:24→20:40)
--- NOTE | 2018-12-08 09:41 | US ---
EXAMINATION TYPE: US chest DATE OF EXAM: 12/08/2018 COMPARISON: x-ray 12/08/2018 CLINICAL HISTORY: Markings for thoracentesis by pulmonary staff. Difficult exam-ICU patient TECHNIQUE: Targeted ultrasound of the posterior lower bilateral hemithoraces EXAM MEASUREMENTS: Right Pleural Effusion pocket size: 5.4 cm Right skin surface to fluid distance: 1.8 cm Left Pleural Effusion pocket size: 4.7 cm Left skin surface to fluid distance: 2.1 cm Right side marked for possible thoracentesis outside the dept. Left side marked for possible thoracentesis outside the dept. Pulmonologists are able to review the images in the patient?s EMR. IMPRESSIONS: BILATERAL PLEURAL EFFUSIONS.
[2018-12-08] MEDS: IPRATROPIUM-ALBUTEROL 3 ML NEB INHALATION SCH ×3 (11:15→20:08)
--- NOTE | 2018-12-08 11:46 | P.PN ---
Subjective Progress Note Date: 12/08/18 Principal diagnosis: Acute sepsis, septic shock, and bilateral pneumonia with sepsis. This is a very pleasant 63-year-old female patient who follows with Dr. Benoit as her primary care physician. She has a history of CVA/TIA, fibromyalgia, gastroesophageal reflux disease, hyperlipidemia, hypothyroidism, chronic back pain, depression. She also has a history of chronic tobacco dependence, oxygen dependent chronic obstructive pulmonary disease with an FEV1 value of 56% of pre dicted, and non-small cell lung cancer stage III adenocarcinoma. She follows with Dr. Fan in our office. This was diagnosed by an FNA of a left upper lobe lesion by IR in November 2016. She had received concurrent chemoradiation with subsequent additional chemotherapy and then placed on maintenance mmunotherapy of Imfinzi back in December 2017. Her last PET scan in March 2018 revealed continued left upper lobe mass with irregular margins extending to the pleural surface, spiculated appearance but was stable compared to previous and October 2017. The SUV value was only 1.7. Subsequent computed tomography scan of the chest in July 2018 revealed a stable and slightly smaller spiculated mass of the left upper lobe measuring 2.5 x 2.4 cm versus 3.0 x 2.6 previous. No evidence of recurrence or metastasis. The patient was in the hospital back in early September 2018 and she was having ongoing issues with nausea vomiting profound weakness and fatigue. She decided to stop taking the immunotherapy. She had been treated for his COPD exacerbation 08/22/[address] our office [address] Dr. Fan where she received steroids and Bactrim. She did improve for the first week or so. She presented to the emergency room yesterday with complaints of increasing shortness of breath cough and congestion. She did have some lower extremity edema. She was still quite weak and fatigued. ome dyspnea on exertion. The patient was discharged home on 09/17/2018 as the patient shortness of breath improved and the patient recovered from her acute COPD exacerbation and she was discharged home on her usual routine medications which included also morphine sulfate 30 mg by mouth twice a day Percocet 04/11/2025 every 6 hours and a when necessary basis. In terms of her lung medication she was maintained on a combi nation of Symbicort and Incruse. She is also on Synthroid 25 g by mouth daily. She was given Lasix to be taken on an as needed basis. The patient subsequently came back to our hospital on 09/29/2018 because of altered mental status. According to the family the patient was acting weird. She was acting unusual and she was confused. She was also very weak and she was having episodes of fall. I do see a bruise over her forehead. The family told that she did not have any active had trauma. No seizure activity. No neck stiffness. No documented fever. She was thrashing significantly yesterday. A CAT scan of the head was done that showed no acute process. CAT scan of abdomen and pelvis was done that showed urinary bladder distention along with extensive colonic stool. The patient's ammonia level was at 28. Urine and blood cultures were ordered. The influenza screen was negative. She did not have any neck stiffness. No fever. She was at times morning. Other times she would open up her eyes and follows some simple commands. I was told that this is an improvement in her condition compared to yesterday. She was able to follow some simple commands however she has not been consistent in following orders. His speech is minimal and the patient may safely worse. She denies being in pain. Urine toxin was ordered. She was given a dose of Narcan here in the ICU without much improvement. Based on all this, I intubated the patient at that time and moved to the intensive care unit. Lumbar puncture was done and was negative and assess the causes for this patient altered mental status was not established. The patient was chest at [facility]. She underwent prolonged hospitalization during which she required intubation mechanical ventilation tracheostomy tube insertion PEG tube insertion and following that the patient was discharged to [facility] [place] where she was undergoing rehabilitation. It seems that the patient regained her mentation and she was communicating well. I'm not sure of the details of her presentation at [facility] The patient came in yesterday to the burst department complaining of worsening shortness of breath. Note that the patient has a tracheostomy tube in place. She was quite weak and hypotensive and lethargic. In the burst department the patient was found to have bilateral lower lobe consolidation pleural effusions. White cell count was at 10.9. Lactic acid level was at 2.1. Blood pressure was quite low. The patient was given IV fluids and the patient was started on pressors. She was also started on a combination of Zosyn and vancomycin as dosed antibiotics for pneumonia. Blood cultures of been sent. Sputum cultures of been sent. The patient subsequently was attached to mechanical ventilator. Currently, the patient is mechanically ventilated. The patient is an assist- control mode of ventilation. The patient is an FiO2 of 60% with a tidal volume of 350 the respiratory rate of 18 and 5 of PEEP. The patient's blood gases showed a pH of 7.3 with a pCO2 of 53 and pO2 of 74. The patient received IV fluids and currently she is on levo fed running at 0.2 g per KG per minute. He r white cell count is 1 is at 18.4. Despite all this, she is arousable. He is following simple commands. She is not requiring any sedation. She is currently in normal sinus rhythm. She had a triple lumen catheter in her right femoral vein. Denies having any chest pain. Her lactic acid level dropped from 2.1 down to 1.5. Reevaluated today on 12/04/2018, patient remains on mechanical ventilation, she is presently on assist control rate of 18 tidal volume of 350 FiO2 of 50% and PEEP of 5. Remains on Levophed at 5.5 mcg/m, she is also on cefepime and vancomycin. Chest x-ray clearly shows evidence of pneumonia, and some chronic parenchymal changes with small bilateral pleural effusions and atelectasis. Patient had a WBC count of 16.7 hemoglobin of 9.2 ABG showed a pO2 of 97 pCO2 of 43 pH of 7.39. Electrolytes and renal profile are normal. Reevaluated today on 12/05/2018, remains on mechanical ventilation, she is presently on tidal volume of 350 assist-control rate of 18 FiO2 is down to 40% from 50% earlier, and her PEEP is 5. Remains on antibiotics, and requiring norepinephrine at 0.12 mcg/kg/m. Surprisingly the patient is on mechanical ventilation, but fully awake, responsive, asking to be fed, however I plan to have a swallow evaluation on this patient, a bit reluctant to start feeding while she is on mechanical ventilation. Patient is asking for coffee. She was given a trial of weaning yesterday from mechanical ventilation and she was placed on a trach collar, lasted about 2 hours and had to be placed back on mechanical ventilation. Sputum today is positive for Streptococcus pneumonia and the patient is on antibiotics, being followed by infectious disease. Initially placed on vancomycin and Zosyn . WBC count is 13.6 hemoglobin is 9 ABG showed a pO2 of 132 pCO2 of 55 pH of 7.28. Basic metabolic profile is relatively normal. Chest x-ray continues to show significant right lower lobe consolidation consistent with pneumonia and her left pleural effusion is improved. Reevaluated today on 12/06/2018, remains on mechanical ventilation, presently on tidal volume of 350 assist-control rate 18 FiO2 40% and PEEP of 5. Patient tolerated weaning yesterday for about 10 hours, went on a trach collar. Early this morning she was switched back to mechanical ventilation assist control mode, a was noted to be more dyspneic, and more short of breath. Patient is on IV fluids which I plan to cut down since her chest x-ray is showing mild interstitial edema, and the patient will receive diuretics today. She is not requiring any pressors. Hemodynamically stable. Remains on enteral feeding via PEG tube. And that is being well-tolerated. Chest x-ray is a bit concerning to me today, hence diuretics were added. In the meantime the patient remains empir ically on broad-spectrum antibiotics. Remains on cefepime and vancomycin. Reevaluated today on 12/07/2018, patient was on mechanical ventilation until an hour ago. She was switched to a trach collar, and she seems to be tolerating the trach collar fairly well. She is on 50% FiO2. Seems to be comfortable, past her swallow evaluation, and she was given liquids to swallow while on trach collar. Overall the patient seems to be much better, breathing easier, much more comfortable today. Chest x-ray is basically about the same continues to show good sized infiltrate in the right lower lobe with consolidation, WBC count remains elevated at 13.3 hemoglobin is 9.4. Patient is hemodynamically stable. And she remains on antibiotics for Streptococcus pneumonia involving the right lower lobe. Patient was reevaluated today on 12/08/2018, she is back on mechanical ventilation, tolerated trach collar for most of the day yesterday and last night. Patient is back on FiO2 of 40% assist control rate of 18 tidal volume of 350 and PEEP of 5. Patient is afraid to be placed on trach collar today, she feels more short of breath, and her chest x-ray showed worsening bibasilar airspace disease, and I suspected some small bilateral pleural effusions, hence ultrasound of the chest was ordered, may or may not consider thoracentesis depending on the size of the fluids. In the meantime the patient remains on diuretics, she is on Lasix at 40 mg IV push every 12 hours. Today I also recommended that we give her steroids. Solu-Medrol was started. And this is mostly based on the fact that the patient was noted to be more short of breath today, more rhonchi and more wheezes noted bilaterally. Labs were reviewed potassium is a bit low at 3.3 otherwise the labs are unremarkable, hemoglobin is 8.5. Objective - Vital Signs Vital signs: Vital Signs Temp 98.2 F 12/08/18 08:00 Pulse 83 12/08/18 11:21 Resp 18 12/08/18 11:00 BP 93/77 12/08/18 11:00 Pulse Ox 97 12/08/18 11:00 Intake & Output 12/07/18 12/08/18 12/08/18 18:59 06:59 18:59 Intake Total 1360 1160 735 Output Total 2050 2550 1525 Balance -690 -1390 -790 Weight 65.9 kg 67.5 kg Intake: IV 220 350 390 Dextrose 5%-0.9% NaCl 1, 75 000 ml @ 125 mls/hr IV . Q8H LOR[facility]A Rx#:[id number] Magnesium Sulfate-D5w Pmx 100 1 gm In Dextrose/Water 1 100ml.bag @ 100 mls/hr IVPB Q1H [facility]A Rx#: [id number] Potassium Phosphate 10 100 mmol In Sodium Chloride 0 .9% 100 ml @ 50 mls/hr IV Q2H [facility]A Rx#:[id number] cefTRIAXone 2 gm In 50 50 Sodium Chloride 0.9% 50 ml @ 100 mls/hr IVPB Q24HR LORETA Rx#:[id number] d5/.9+kvo 95 350 140 Oral 420 Tube Feeding 630 720 315 Other 90 90 30 Output: Urine 0 2550 1525 Other: Voiding Method Indwelling Catheter Indwelling Catheter Indwelling Catheter - Exam Physical Exam: Revealed a 63-year-old female, pleasant, awake, on ventilatory support, follows all instructions. Head: Atraumatic, normocephalic, HEENT:[Neck is supple.] [No neck masses.] [No thyromegaly.] [No JVD.] PERRLA, EOMI, no icterus, tracheostomy is intact. Moist mucous membranes. Chest: Rhonchi and wheezes noted bilaterally, more so on the right side. Cardiac Exam: [Normal S1 and S2, no S3 gallop, no murmur.] Abdomen: [Soft, nontender, no megaly, no rebound, no guarding, normal bowel sounds.] PEG tube is intact. Extremities: [No clubbing, no edema, no cyanosis.] Neurological Exam: [No focal neurologic deficit. Alert and oriented 3, follows simple instructions. Psychiatric: Normal mood, affect and mental status examination. Lymphatics: No lymphadenopathy. Skin: No rashes. ] - Labs CBC & Chem 7: 12/08/18 05:10 12/08/18 05:10 Labs: Abnormal Lab Results - Last 24 Hours (Table) 12/07/18 12/07/18 12/07/18 Range/Units 11:45 11:50 12:20 WBC 13.8 H (3.8-10.6) k/uL RBC 3.30 L (3.80-5.40) m/uL Hgb 9.6 L (11.4-16.0) gm/dL Hct 32.3 L (34.0-46.0) % MCHC 29.7 L (31.0-37.0) g/dL RDW 16.7 H (11.5-15.5) % Sodium (137-145) mmol/L Potassium 3.0 L (3.5-5.1) mmol/L Chloride 95 L (98-107) mmol/L Carbon Dioxide 41 H* (22-30) mmol/L Creatinine 0.44 L (0.52-1.04) mg/dL Glucose 139 H (74-99) mg/dL POC Glucose (mg/dL) 136 H (75-99) mg/dL Calcium 8.3 L (8.4-10.2) mg/dL Phosphorus (2.5-4.5) mg/dL Magnesium (1.6-2.3) mg/dL 12/07/18 12/07/18 12/08/18 Range/Units 17:40 20:38 00:15 WBC (3.8-10.6) k/uL RBC (3.80-5.40) m/uL Hgb (11.4-16.0) gm/dL Hct (34.0-46.0) % MCHC (31.0-37.0) g/dL RDW (11.5-15.5) % Sodium (137-145) mmol/L Potassium 3.0 L (3.5-5.1) mmol/L Chloride (98-107) mmol/L Carbon Dioxide (22-30) mmol/L Creatinine (0.52-1.04) mg/dL Glucose (74-99) mg/dL POC Glucose (mg/dL) 137 H 148 H (75-99) mg/dL Calcium (8.4-10.2) mg/dL Phosphorus (2.5-4.5) mg/dL Magnesium (1.6-2.3) mg/dL 12/08/18 12/08/18 12/08/18 Range/Units 05:10 05:10 05:37 WBC 11.8 H (3.8-10.6) k/uL RBC 2.75 L (3.80-5.40) m/uL Hgb 8.5 L (11.4-16.0) gm/dL Hct 26.3 L (34.0-46.0) % MCHC (31.0-37.0) g/dL RDW 17.3 H (11.5-15.5) % Sodium 134 L (137-145) mmol/L Potassium 3.3 L (3.5-5.1) mmol/L Chloride 91 L (98-107) mmol/L Carbon Dioxide 42 H* (22-30) mmol/L Creatinine 0.36 L (0.52-1.04) mg/dL Glucose 132 H (74-99) mg/dL POC Glucose (mg/dL) 136 H (75-99) mg/dL Calcium 8.1 L (8.4-10.2) mg/dL Phosphorus 1.9 L (2.5-4.5) mg/dL Magnesium 1.4 L (1.6-2.3) mg/dL Microbiology - Last 24 Hours (Table) 12/02/18 22:52 Blood Culture - Preliminary Blood No Growth after 120 hours Assessment and Plan Assessment: Impression: 1 acute on chronic hypoxic respiratory failure secondary to bilateral pneumonia secondary to Streptococcus pneumonia as documented from the sputum culture. 2 acute sepsis and septic shock secondary to pneumonia patient required fluid boluses and pressors. Presently off norepinephrine, and hemodynamically stable 3 stage IV non-small cell lung cancer post-chemoradiation therapy and was on immunotherapy. 4 severe COPD with acute exacerbation 5 hypertension 6 chronic back pain and fibromyalgia and arthritis 7 history of depression 8 history of recent prolonged course of mechanical ventilation in September of 2018 requiring tracheostomy and PEG tube placement 9 small bilateral pleural effusions, etiology is not clear, will continue diuretics for now, based on the ultrasound findings and based on response to diuretics, may have to consider at least a diagnostic/therapeutic right-sided thoracentesis. I believe the effusions could be parapneumonic. Although the possibility of malignant pleural effusions not entirely ruled out. Recommendation: Continue mechanical ventilation, patient is not ready today to be placed back on trach collar. In the meantime we'll continue diuretics, ordered an ultrasound of the chest, and Solu-Medrol was added. Change her albuterol to DuoNeb updrafts every 4 hours Continue antibiotics for Streptococcus pneumonia Continue nutritional support via PEG tube. Continue GI and DVT prophylaxis Continue bronchodilators. Swallow evaluation was done at bedside, and the patient passed the swallow evaluation. Hence she will be allowed to swallow liquids while on trach collar. Continue to follow in the ICU closely, prognosis is relatively guarded considering her multiple comorbidities. No plans to place the patient on trach collar today, she will remain on mechanical ventilation. Prognosis is definitely guarded, patient remains critically ill, will remain in the ICU. Critical care time is 35 minutes Time with Patient: Greater than 30
[2018-12-08 11:48] LABS: Glucose,Whole Blood 163 mg/dL (75-99)
[2018-12-08] MEDS: DEXTROSE 5%-0.9% NACL 1,000 ML IV SCH (12:14)
--- NOTE | 2018-12-08 15:23 | P.PN ---
Subjective Progress Note Date: 12/08/18 This is a 63-year-old female patient who presented to the hospital with worsening shortness of breath. Patient has a past medical history of recent hospital admission in which she was admitted to [facility] hearing transferred to [facility] which required prolonged intubation and tracheostomy. Patient was recently discharged to recent D/C to [facility] week ago. Patient has had increased sputum production and cough. Patient has past medical history of non- small cell lung cancer stage III, CVA, COPD, GERD, hyperlipidemia, osteoarthritis,chronic back pain and depression. Chest x-ray completed in ER showing right lower lobe consolidation with bilateral pleural effusions. Patient's WBC elevated at 10.9. Patient also have a lactic acid of 2.1. UA negative. Patient's blood pressure low. Patient started on Levophed and transferred to the ICU. Dr. Jackson has been consulted for critical care. Patient started on vancomycin and Zosyn for antibiotic. Blood urine and sputum cultures ordered. At this time patient is on mechanical ventilation resting comfortably in bed. Patient is following commands. On 12/04/2018 patient maintained on mechanical ventilation but awake and alert. Patient remains in intensive care unit on Levophed for pressure support. Patient reports that she feels better. Patient currently on vancomycin and Maxipime for antibiotics. Infectious disease and pulmonary services are following. White Blood cell 16.7. Blood,urine and sputum cultures pending On 12/05/2018 patient rates on mechanical ventilation but awake and alert following commands. patient reports that she feels overall improved. white blood cell improving to 13.6. At this time patient denies chest pain or shortness breath. Patient denies nausea vomiting diarrhea denies any urinary b urning or frequency 12/06/2018 patient is alert and awake following commands. Patient remains on m echanical ventilation. Patient has been off pressure support medication for 24 hours. Infectious disease and pulmonary following. At this time patient denies chest pain or shortness breath. Patient denies nausea vomiting or diarrhea. Patient denies any urinary burning or frequency. On 12/07/2018 patient is awake alert and awake following commands. Patient has been taken off mechanical ventilation placed on trach mask. Patient remains in the intensive care unit but showing improvement. Patient has been off pressure support medication for over 48 hours. Infectious disease and pulmonary are following. Antibiotics adjusted per ID. At this time patient denies chest pain or shortness of breath. Patient denies nausea vomiting or diarrhea. Patient denies any urinary burning or frequency On 12/08/2018 patient is awake alert and awake following commands. Patient is back on mechanical ventilation she was also started on IV Solu-Medrol. Patient remains in the intensive care unit but showing improvement. She denies any pain or discomfort at this time, lab results were reviewed potassium is a bit low at 3.3, hemoglobin is 8.5 Otherwise labs are unremarkable. Objective - Vital Signs Vital signs: Vital Signs Temp 98.2 F 12/08/18 12:00 Pulse 77 12/08/18 14:00 Resp 10 L 12/08/18 14:00 BP 101/67 12/08/18 14:00 Pulse Ox 96 12/08/18 14:00 Intake & Output 12/07/18 12/08/18 12/08/18 18:59 06:59 18:59 Intake Total 1360 1160 1360 Output Total 2049 2550 2325 Balance -690 -1390 -965 Weight 65.9 kg 67.5 kg Intake: IV 220 350 760 Dextrose 5%-0.9% NaCl 1, 75 000 ml @ 125 mls/hr IV . Q8H [facility] Rx#:[id number] Magnesium Sulfate-D5w Pmx 300 1 gm In Dextrose/Water 1 100ml.bag @ 100 mls/hr IVPB Q1H [facility] Rx#: [id number] Potassium Phosphate 10 200 mmol In Sodium Chloride 0 .9% 100 ml @ 50 mls/hr IV Q2H [facility] Rx#:[id number] cefTRIAXone 2 gm In 50 50 Sodium Chloride 0.9% 50 ml @ 100 mls/hr IVPB Q24HR [facility] Rx#:[id number] d5/.9+kvo 95 350 210 Oral 420 Tube Feeding 630 720 540 Other 90 90 60 Output: Urine 2049 2550 2325 Other: Voiding Method Indwelling Catheter Indwelling Catheter Indwelling Catheter - Exam Patient is alert and oriented answering questions appropriately, writing down some questions, able to communicate well, she is maintained on mechanical ventilation through tracheostomy Head normocephalic and atraumatic Neck supple. Tracheostomy in place Lungs diminished with bilateral rhonchi. Heart regular rate and rhythm S1-S2, no rub or gallop Abdomen is soft nontender nondistended positive bowel sounds no hepatosplenomegaly. PEG tube in place Extremities no edema no cyanosis or clubbing Neuro follows commands. On mechanical ventilation - Labs CBC & Chem 7: 12/08/18 05:10 12/08/18 05:10 Labs: Abnormal Lab Results - Last 24 Hours (Table) 12/07/18 12/07/18 12/08/18 Range/Units 17:40 20:38 00:15 WBC (3.8-10.6) k/uL RBC (3.80-5.40) m/uL Hgb (11.4-16.0) gm/dL Hct (34.0-46.0) % RDW (11.5-15.5) % Sodium (137-145) mmol/L Potassium 3.0 L (3.5-5.1) mmol/L Chloride (98-107) mmol/L Carbon Dioxide (22-30) mmol/L Creatinine (0.52-1.04) mg/dL Glucose (74-99) mg/dL POC Glucose (mg/dL) 137 H 148 H (75-99) mg/dL Calcium (8.4-10.2) mg/dL Phosphorus (2.5-4.5) mg/dL Magnesium (1.6-2.3) mg/dL 12/08/18 12/08/18 12/08/18 Range/Units 05:10 05:10 05:37 WBC 11.8 H (3.8-10.6) k/uL RBC 2.75 L (3.80-5.40) m/uL Hgb 8.5 L (11.4-16.0) gm/dL Hct 26.3 L (34.0-46.0) % RDW 17.3 H (11.5-15.5) % Sodium 134 L (137-145) mmol/L Potassium 3.3 L (3.5-5.1) mmol/L Chloride 91 L (98-107) mmol/L Carbon Dioxide 42 H* (22-30) mmol/L Creatinine 0.36 L (0.52-1.04) mg/dL Glucose 132 H (74-99) mg/dL POC Glucose (mg/dL) 136 H (75-99) mg/dL Calcium 8.1 L (8.4-10.2) mg/dL Phosphorus 1.9 L (2.5-4.5) mg/dL Magnesium 1.4 L (1.6-2.3) mg/dL 12/08/18 Range/Units 11:46 WBC (3.8-10.6) k/uL RBC (3.80-5.40) m/uL Hgb (11.4-16.0) gm/dL Hct (34.0-46.0) % RDW (11.5-15.5) % Sodium (137-145) mmol/L Potassium (3.5-5.1) mmol/L Chloride (98-107) mmol/L Carbon Dioxide (22-30) mmol/L Creatinine (0.52-1.04) mg/dL Glucose (74-99) mg/dL POC Glucose (mg/dL) 163 H (75-99) mg/dL Calcium (8.4-10.2) mg/dL Phosphorus (2.5-4.5) mg/dL Magnesium (1.6-2.3) mg/dL Microbiology - Last 24 Hours (Table) 12/02/18 22:52 Blood Culture - Preliminary Blood No Growth after 120 hours Assessment and Plan Plan: 1. Sepsis present on admission related to pneumonia. Chest x-ray completed showing right lower lobe consolidation. Bilateral pleural effusions. Patient admitted to the intensive care unit. Initial lactic acid 2.1. Blood urine and sputum cultures have been ordered. White blood cell 16.4. Infectious disease following. Patient on cefepime and Vanco. Sputum culture currently growing Streptococcus pneumoniae. Repeat chest x-ray completed showing suspected sickle cell congestive heart failure mild pulmonary vascular congestion stable smal [id number] pleural effusions or airspace disease. Likely atelectasis multifocal pneumonia and parapneumonic effusions are an alernative consideration. Sputum culture growing Streptococcus pneumoniae. Antibiotics adjusted to Rocephin per infectious disease. Patient taken off mechanical ventilation and placed on trach collar 2. Hypotension related to above. Patient maintained on Levophed. Resolved 3. History of non-small cell lung stage III adenocarcinoma 4. History of recent prolonged hospital admission in which she was [facility] to [facility]. Patient was on mechanical ventilation for prolonged time requiring tracheostomy 5. Acute on chronic respiratory failure. 6. Bilateral pleural effusions. Pulmonary services have been consulted 7. History of COPD 8. History of CVA 9. History of osteoarthritis 10. History of hyperlipidemia 11. History of fibromyalgia 12. History of depression 13. Ex-smoker. Patient is smoking history of half-pack per day for 30 years 14. Bilateral lower extremity neuropathy. Patient started on Lyrica DVT prophylaxis heparin. GI prophylaxis Protonix
[2018-12-08 18:01] LABS: Glucose,Whole Blood 172 mg/dL (75-99)
[2018-12-08] MEDS ORDERED: POTASSIUM CHLORIDE ER 20 MEQ TAB.ER PO SCH (20:00)
[2018-12-08 23:37] LABS: Glucose,Whole Blood 177 mg/dL (75-99)
[2018-12-09] MEDS: methylPREDNISolone SOD SUCCI 40 MG/ML 1 ML VIAL IV SCH ×3 (00:06→17:38)
[2018-12-09] MEDS: HEPARIN SODIUM,PORCINE 5,000 UNIT/ML 1 ML VIAL SQ SCH ×3 (00:06→17:38)
[2018-12-09] MEDS: INSULIN ASPART (NovoLOG) 100 UNIT/ML VIAL SQ SCH ×4 (00:07→17:38)
[2018-12-09] MEDS: IPRATROPIUM-ALBUTEROL 3 ML NEB INHALATION SCH ×6 (00:14→20:36)
[2018-12-09 05:49] LABS: Glucose,Whole Blood 263 mg/dL (75-99)
[2018-12-09] MEDS: LEVOTHYROXINE 50 MCG TAB PO SCH (05:53)
[2018-12-09] MEDS: NOREPINEPHRINE 32 MG in SODIUM CHLORIDE 0.9% 218 ML IV SCH (05:54)
[2018-12-09 06:23] LABS: Anisocytosis Slight; HGB 8.4 gm/dL (11.4-16.0); Hypochromasia Slight; MCH 29.7 pg (25.0-35.0); MCHC 31.1 g/dL (31.0-37.0); MCV 95.5 fL (80.0-100.0); Mean Platelet Volume 7.9; Platelet Count 282 k/uL (150-450); RBC 2.83 m/uL (3.80-5.40); RDW 17.4 % (11.5-15.5); WBC 10.5 k/uL (3.8-10.6)
[2018-12-09 06:38] LABS: Blood Urea Nitrogen 18 mg/dL (7-17); Calcium 8.1 mg/dL (8.4-10.2); Chloride 88 mmol/L (98-107); Glucose 227 mg/dL (74-99); Magnesium 2.1 mg/dL (1.6-2.3); Sodium 135 mmol/L (137-145)
--- NOTE | 2018-12-09 06:40 | XR ---
EXAMINATION TYPE: XR chest 1V portable DATE OF EXAM: 12/09/2018 HISTORY: Tube placement. REFERENCE: Previous study dated 12/08/2018. FINDINGS: A tracheostomy tube is present. Its tip overlies the tracheal air column in this single fro ntal projection. The heart is mildly enlarged. There is bibasilar airspace disease. There are bilateral effusions. IMPRESSION: NO SIGNIFICANT INTERVAL CHANGE IN THE APPEARANCE OF THE CHEST.
[2018-12-09 06:44] LABS: Anion Gap 3 mmol/L
[2018-12-09 06:49] LABS: Carbon Dioxide 44 mmol/L (22-30)
[2018-12-09] MEDS: BUDESONIDE 1 MG/2 ML NEBU INHALATION SCH ×2 (08:14→20:36)
--- NOTE | 2018-12-09 08:44 | P.PN ---
Subjective Progress Note Date: 12/09/18 Principal diagnosis: Acute sepsis, septic shock, and bilateral pneumonia with sepsis. This is a very pleasant 63-year-old female patient who follows with Dr. Benoit as her primary care physician. She has a history of CVA/TIA, fibromyalgia, gastroesophageal reflux disease, hyperlipidemia, hypothyroidism, chronic back pain, depression. She also has a history of chronic tobacco dependence, oxygen dependent chronic obstructive pulmonary disease with an FEV1 value of 56% of pre dicted, and non-small cell lung cancer stage III adenocarcinoma. She follows with Dr. Fan in our office. This was diagnosed by an FNA of a left upper lobe lesion by IR in November 2016. She had received concurrent chemoradiation with subsequent additional chemotherapy and then placed on maintenance mmunotherapy of Imfinzi back in December 2017. Her last PET scan in March 2018 revealed continued left upper lobe mass with irregular margins extending to the pleural surface, spiculated appearance but was stable compared to previous and October 2017. The SUV value was only 1.7. Subsequent computed tomography scan of the chest in July 2018 revealed a stable and slightly smaller spiculated mass of the left upper lobe measuring 2.5 x 2.4 cm versus 3.0 x 2.6 previous. No evidence of recurrence or metastasis. The patient was in the hospital back in early September 2018 and she was having ongoing issues with nausea vomiting profound weakness and fatigue. She decided to stop taking the immunotherapy. She had been treated for his COPD exacerbation 08/22/[address] our office [address] Dr. Fna where she received steroids and Bactrim. She did improve for the first week or so. She presented to the emergency room yesterday with complaints of increasing shortness of breath cough and congestion. She did have some lower extremity edema. She was still quite weak and fatigued. ome dyspnea on exertion. The patient was discharged home on 09/17/2018 as the patient shortness of breath improved and the patient recovered from her acute COPD exacerbation and she was discharged home on her usual routine medications which included also morphine sulfate 30 mg by mouth twice a day Percocet 04/11/2025 every 6 hours and a when necessary basis. In terms of her lung medication she was maintained on a combi nation of Symbicort and Incruse. She is also on Synthroid 25 g by mouth daily. She was given Lasix to be taken on an as needed basis. The patient subsequently came back to our hospital on 09/29/2018 because of altered mental status. According to the family the patient was acting weird. She was acting unusual and she was confused. She was also very weak and she was having episodes of fall. I do see a bruise over her forehead. The family told that she did not have any active had trauma. No seizure activity. No neck stiffness. No documented fever. She was thrashing significantly yesterday. A CAT scan of the head was done that showed no acute process. CAT scan of abdomen and pelvis was done that showed urinary bladder distention along with extensive colonic stool. The patient's ammonia level was at 28. Urine and blood cultures were ordered. The influenza screen was negative. She did not have any neck stiffness. No fever. She was at times morning. Other times she would open up her eyes and follows some simple commands. I was told that this is an improvement in her condition compared to yesterday. She was able to follow some simple commands however she has not been consistent in following orders. His speech is minimal and the patient may safely worse. She denies being in pain. Urine toxin was ordered. She was given a dose of Narcan here in the ICU without much improvement. Based on all this, I intubated the patient at that time and moved to the intensive care unit. Lumbar puncture was done and was negative and assess the causes for this patient altered mental status was not established. The patient was chest at [facility]. She underwent prolonged hospitalization during which she required intubation mechanical ventilation tracheostomy tube insertion PEG tube insertion and following that the patient was discharged to [facility] on the [place] where she was undergoing rehabilitation. It seems that the patient regained her mentation and she was communicating well. I'm not sure of the details of her presentation at [facility] The patient came in yesterday to the burst department complaining of worsening shortness of breath. Note that the patient has a tracheostomy tube in place. She was quite weak and hypotensive and lethargic. In the burst department the patient was found to have bilateral lower lobe consolidation pleural effusions. White cell count was at 10.9. Lactic acid level was at 2.1. Blood pressure was quite low. The patient was given IV fluids and the patient was started on pressors. She was also started on a combination of Zosyn and vancomycin as dosed antibiotics for pneumonia. Blood cultures of been sent. Sputum cultures of been sent. The patient subsequently was attached to mechanical ventilator. Currently, the patient is mechanically ventilated. The patient is an assist- control mode of ventilation. The patient is an FiO2 of 60% with a tidal volume of 350 the respiratory rate of 18 and 5 of PEEP. The patient's blood gases showed a pH of 7.3 with a pCO2 of 53 and pO2 of 74. The patient received IV fluids and currently she is on levo fed running at 0.2 g per KG per minute. He r white cell count is 1 is at 18.4. Despite all this, she is arousable. He is following simple commands. She is not requiring any sedation. She is currently in normal sinus rhythm. She had a triple lumen catheter in her right femoral vein. Denies having any chest pain. Her lactic acid level dropped from 2.1 down to 1.5. Reevaluated today on 12/04/2018, patient remains on mechanical ventilation, she is presently on assist control rate of 18 tidal volume of 350 FiO2 of 50% and PEEP of 5. Remains on Levophed at 5.5 mcg/m, she is also on cefepime and vancomycin. Chest x-ray clearly shows evidence of pneumonia, and some chronic parenchymal changes with small bilateral pleural effusions and atelectasis. Patient had a WBC count of 16.7 hemoglobin of 9.2 ABG showed a pO2 of 97 pCO2 of 43 pH of 7.39. Electrolytes and renal profile are normal. Reevaluated today on 12/05/2018, remains on mechanical ventilation, she is presently on tidal volume of 350 assist-control rate of 18 FiO2 is down to 40% from 50% earlier, and her PEEP is 5. Remains on antibiotics, and requiring norepinephrine at 0.12 mcg/kg/m. Surprisingly the patient is on mechanical ventilation, but fully awake, responsive, asking to be fed, however I plan to have a swallow evaluation on this patient, a bit reluctant to start feeding while she is on mechanical ventilation. Patient is asking for coffee. She was given a trial of weaning yesterday from mechanical ventilation and she was placed on a trach collar, lasted about 2 hours and had to be placed back on mechanical ventilation. Sputum today is positive for Streptococcus pneumonia and the patient is on antibiotics, being followed by infectious disease. Initially placed on vancomycin and Zosyn . WBC count is 13.6 hemoglobin is 9 ABG showed a pO2 of 132 pCO2 of 55 pH of 7.28. Basic metabolic profile is relatively normal. Chest x-ray continues to show significant right lower lobe consolidation consistent with pneumonia and her left pleural effusion is improved. Reevaluated today on 12/06/2018, remains on mechanical ventilation, presently on tidal volume of 350 assist-control rate 18 FiO2 40% and PEEP of 5. Patient tolerated weaning yesterday for about 10 hours, went on a trach collar. Early this morning she was switched back to mechanical ventilation assist control mode, a was noted to be more dyspneic, and more short of breath. Patient is on IV fluids which I plan to cut down since her chest x-ray is showing mild interstitial edema, and the patient will receive diuretics today. She is not requiring any pressors. Hemodynamically stable. Remains on enteral feeding via PEG tube. And that is being well-tolerated. Chest x-ray is a bit concerning to me today, hence diuretics were added. In the meantime the patient remains empir ically on broad-spectrum antibiotics. Remains on cefepime and vancomycin. Reevaluated today on 12/07/2018, patient was on mechanical ventilation until an hour ago. She was switched to a trach collar, and she seems to be tolerating the trach collar fairly well. She is on 50% FiO2. Seems to be comfortable, past her swallow evaluation, and she was given liquids to swallow while on trach collar. Overall the patient seems to be much better, breathing easier, much more comfortable today. Chest x-ray is basically about the same continues to show good sized infiltrate in the right lower lobe with consolidation, WBC count remains elevated at 13.3 hemoglobin is 9.4. Patient is hemodynamically stable. And she remains on antibiotics for Streptococcus pneumonia involving the right lower lobe. Patient was reevaluated today on 12/08/2018, she is back on mechanical ventilation, tolerated trach collar for most of the day yesterday and last night. Patient is back on FiO2 of 40% assist control rate of 18 tidal volume of 350 and PEEP of 5. Patient is afraid to be placed on trach collar today, she feels more short of breath, and her chest x-ray showed worsening bibasilar airspace disease, and I suspected some small bilateral pleural effusions, hence ultrasound of the chest was ordered, may or may not consider thoracentesis depending on the size of the fluids. In the meantime the patient remains on diuretics, she is on Lasix at 40 mg IV push every 12 hours. Today I also recommended that we give her steroids. Solu-Medrol was started. And this is mostly based on the fact that the patient was noted to be more short of breath today, more rhonchi and more wheezes noted bilaterally. Labs were reviewed potassium is a bit low at 3.3 otherwise the labs are unremarkable, hemoglobin is 8.5. Reevaluated today on 12/09/2018, remains on mechanical ventilation overnight. Breathing a bit easier today, less cough and less wheezing less shortness of breath. Ultrasound of the chest showed small bilateral pleural effusions, however her chest x-ray today seems to be slightly improved. Even on physical examination, the patient has less rhonchi and wheezes, hence I plan to place the patient again on a trial of trach collar. And if she tolerates trach collar, the patient will be fed orally with deflation of the tracheostomy tube. In the meantime the patient remains on enteral feeding via PEG tube. Chest x-ray was reviewed and clearly shows improvement compared to yesterday. Apparently the patient improved quite a bit with bronchodilators around the clock and with steroids. I will keep her today on Solu-Medrol. And I will keep her on diuretics. However I cut down her Lasix to 40 mg daily and I added Diamox. 250 mg IV push every 12 hours. Labs were reviewed chest x-ray was reviewed. Patient seems to be quite emotional today, she is afraid that we may not be able to feed her today while on trach collar. But I explained to her that she will be fed if she tolerates trach collar well today. Objective - Vital Signs Vital signs: Vital Signs Temp 99 F 12/09/18 04:00 Pulse 110 H 12/09/18 08:35 Resp 18 12/09/18 05:00 BP 95/55 12/09/18 05:00 Pulse Ox 97 12/09/18 08:13 Intake & Output 12/08/18 12/09/18 12/09/18 18:59 06:59 18:59 Intake Total 1710 1195 Output Total 0800 8525 Balance -895 -590 Weight 66.7 kg Intake: IV 900 385 Magnesium Sulfate-D5w Pmx 300 1 gm In Dextrose/Water 1 100ml.bag @ 100 mls/hr IVPB Q1H [facility] Rx#: [id number] Potassium Phosphate 10 200 mmol In Sodium Chloride 0 .9% 100 ml @ 50 mls/hr IV Q2H [facility] Rx#:[id number] cefTRIAXone 2 gm In 50 Sodium Chloride 0.9% 50 ml @ 100 mls/hr IVPB Q24HR [facility] Rx#:[id number] d5/.9+kvo 350 385 Tube Feeding 720 720 Other 90 90 Output: Urine 2605 1785 Other: Voiding Method Indwelling Catheter Indwelling Catheter - Exam Physical Exam: Revealed a 63-year-old female, on mechanical ventilation, emotional and tearful.. Head: Atraumatic, normocephalic, HEENT:[Neck is supple.] [No neck masses.] [No thyromegaly.] [No JVD.] PERRLA, EOMI, no icterus, tracheostomy is intact. Moist mucous membranes. Chest: Minimal fine crackles at bases, no rhonchi and no wheezes today. Symmetrical chest expansion noted chest wall tenderness.. Cardiac Exam: [Normal S1 and S2, no S3 gallop, no murmur.] Abdomen: [Soft, nontender, no megaly, no rebound, no guarding, normal bowel sounds.] PEG tube is intact. Extremities: [No clubbing, no edema, no cyanosis.] Neurological Exam: [No focal neurologic deficit. Alert and oriented 3, follows simple instructions. Psychiatric: Emotional, tearful, otherwise unremarkable. Patient is concerned that we may not be able to feed her today. She likes to have some coffee at least. Lymphatics: No lymphadenopathy. Skin: No rashes. ] - Labs CBC & Chem 7: 12/09/18 05:27 12/09/18 05:27 Labs: Abnormal Lab Results - Last 24 Hours (Table) 12/08/18 12/08/18 12/08/18 Range/Units 11:46 17:59 23:34 RBC (3.80-5.40) m/uL Hgb (11.4-16.0) gm/dL Hct (34.0-46.0) % RDW (11.5-15.5) % Sodium (137-145) mmol/L Chloride (98-107) mmol/L Carbon Dioxide (22-30) mmol/L BUN (7-17) mg/dL Creatinine (0.52-1.04) mg/dL Glucose (74-99) mg/dL POC Glucose (mg/dL) 163 H 172 H 177 H (75-99) mg/dL Calcium (8.4-10.2) mg/dL 12/09/18 12/09/18 12/09/18 Range/Units 05:27 05:27 05:46 RBC 2.83 L (3.80-5.40) m/uL Hgb 8.4 L (11.4-16.0) gm/dL Hct 27.0 L (34.0-46.0) % RDW 17.4 H (11.5-15.5) % Sodium 135 L (137-145) mmol/L Chloride 88 L (98-107) mmol/L Carbon Dioxide 44 H* (22-30) mmol/L BUN 18 H (7-17) mg/dL Creatinine 0.41 L (0.52-1.04) mg/dL Glucose 227 H (74-99) mg/dL POC Glucose (mg/dL) 263 H (75-99) mg/dL Calcium 8.1 L (8.4-10.2) mg/dL Microbiology - Last 24 Hours (Table) 12/02/18 22:52 Blood Culture - Final Blood No Growth after 144 hours Assessment and Plan Assessment: Impression: 1 acute on chronic hypoxic respiratory failure secondary to bilateral pneumonia secondary to Streptococcus pneumonia as documented from the sputum culture. 2 acute sepsis and septic shock secondary to pneumonia patient required fluid boluses and pressors. Presently off norepinephrine, and hemodynamically stable 3 stage IV non-small cell lung cancer post-chemoradiation therapy and was on i mmunotherapy. 4 severe COPD with acute exacerbation 5 hypertension 6 chronic back pain and fibromyalgia and arthritis 7 history of depression 8 history of recent prolonged course of mechanical ventilation in September of 2018 requiring tracheostomy and PEG tube placement 9 small bilateral pleural effusions, etiology is not clear, I believe the effusions could be parapneumonic. Although the possibility of malignant pleural effusions not entirely ruled out. Considering the improvement on the chest x- ray today, I have no plans to perform thoracentesis on the patient today. Recommendation: Continue mechanical ventilation, but I would definitely try the patient on trach collar again today. Continue antibiotics for Streptococcus pneumonia, continue to monitor the parapneumonic effusions in. In the meantime continue diuretics Continue nutritional support via PEG tube. Continue GI and DVT prophylaxis Continue bronchodilators. Try patient on trach collar again today, and allowed to feed orally with the cuff deflated on the tracheostomy tube. Patient had a previous swallow evalua tion and she passed Continue to follow in the ICU closely, prognosis is relatively guarded consider ing her multiple comorbidities. No plans to place the patient on trach collar today, she will remain on mechanical ventilation. Prognosis is definitely guarded, patient remains critically ill, will remain in the ICU. Critical care time is 32 minutes. Time with Patient: Greater than 30
[2018-12-09] MEDS: FUROSEMIDE 10 MG/ML 4 ML VIAL IV SCH (08:51)
[2018-12-09] MEDS: PANTOPRAZOLE 40 MG/10 ML VIAL IV SCH (08:51)
[2018-12-09] MEDS: AMIODARONE 200 MG TAB PO SCH (08:52)
[2018-12-09] MEDS: QUEtiapine 50 MG TAB PO SCH ×2 (08:52→20:08)
[2018-12-09] MEDS: oxyCODONE ER 10 MG TAB.ER.12H PO SCH ×2 (08:52→20:09)
[2018-12-09] MEDS: CHLORHEXIDINE GLUCONATE 15 ML CUP MUCOUS MEM SCH ×2 (08:52→20:08)
[2018-12-09] MEDS: SENNOSIDES-DOCUSATE SODIUM 1 EACH TAB PO SCH ×2 (08:52→20:08)
[2018-12-09] MEDS: LORazepam 0.5 MG TAB PO PRN ×3 (08:52→20:08)
[2018-12-09] MEDS: PREGABALIN 50 MG CAP PO SCH ×2 (08:52→20:08)
[2018-12-09] MEDS ORDERED: POTASSIUM BICARBONATE/CIT AC 20 MEQ TABLET.EFF NG-TUBE SCH (09:00)
--- NOTE | 2018-12-09 11:45 | P.PN ---
Subjective Progress Note Date: 12/09/18 This is a 63-year-old female patient who presented to the hospital with worsening shortness of breath. Patient has a past medical history of recent hospital admission in which she was admitted to [facility] hearing transferred to [facility] which required prolonged intubation and tracheostomy. Patient was recently discharged to recent D/C to [facility] week ago. Patient has had increased sputum production and cough. Patient has past medical history of non- small cell lung cancer stage III, CVA, COPD, GERD, hyperlipidemia, osteoarthritis,chronic back pain and depression. Chest x-ray completed in ER showing right lower lobe consolidation with bilateral pleural effusions. Patient's WBC elevated at 10.9. Patient also have a lactic acid of 2.1. UA negative. Patient's blood pressure low. Patient started on Levophed and transferred to the ICU. Dr. Jackson has been consulted for critical care. Patient started on vancomycin and Zosyn for antibiotic. Blood urine and sputum cultures ordered. At this time patient is on mechanical ventilation resting comfortably in bed. Patient is following commands. On 12/04/2018 patient maintained on mechanical ventilation but awake and alert. Patient remains in intensive care unit on Levophed for pressure support. Patient reports that she feels better. Patient currently on vancomycin and Maxipime for antibiotics. Infectious disease and pulmonary services are following. White Blood cell 16.7. Blood,urine and sputum cultures pending On 12/05/2018 patient rates on mechanical ventilation but awake and alert following commands. patient reports that she feels overall improved. white blood cell improving to 13.6. At this time patient denies chest pain or shortness breath. Patient denies nausea vomiting diarrhea denies any urinary b urning or frequency 12/06/2018 patient is alert and awake following commands. Patient remains on m echanical ventilation. Patient has been off pressure support medication for 24 hours. Infectious disease and pulmonary following. At this time patient denies chest pain or shortness breath. Patient denies nausea vomiting or diarrhea. Patient denies any urinary burning or frequency. On 12/07/2018 patient is awake alert and awake following commands. Patient has been taken off mechanical ventilation placed on trach mask. Patient remains in the intensive care unit but showing improvement. Patient has been off pressure support medication for over 48 hours. Infectious disease and pulmonary are following. Antibiotics adjusted per ID. At this time patient denies chest pain or shortness of breath. Patient denies nausea vomiting or diarrhea. Patient denies any urinary burning or frequency On 12/08/2018 patient is awake alert and awake following commands. Patient is back on mechanical ventilation she was also started on IV Solu-Medrol. Patient remains in the intensive care unit but showing improvement. She denies any pain or discomfort at this time, lab results were reviewed potassium is a bit low at 3.3, hemoglobin is 8.5 Otherwise labs are unremarkable. On 12/09/2018 patient was seen and examined in the ICU she is alert and oriented 3 she is off the ventilator at this time and is maintained on tracheostomy shield with high flow oxygen, there is no fever or chills no headache or dizziness no chest pain she has occasional cough no nausea or vomiting no abdominal pain no diarrhea and no urinary symptoms Objective - Vital Signs Vital signs: Vital Signs Temp 98.7 F 12/09/18 08:00 Pulse 80 12/09/18 08:49 Resp 19 12/09/18 08:00 BP 104/67 12/09/18 08:00 Pulse Ox 97 12/09/18 08:13 Intake & Output 12/08/18 12/09/18 12/09/18 18:59 06:59 18:59 Intake Total 1710 1195 270 Output Total 2605 1785 125 Balance -895 -590 145 Weight 66.7 kg Intake: IV 900 385 105 Magnesium Sulfate-D5w Pmx 300 1 gm In Dextrose/Water 1 100ml.bag @ 100 mls/hr IVPB Q1H LORETA Rx#: [id number] Potassium Phosphate 10 200 mmol In Sodium Chloride 0 .9% 100 ml @ 50 mls/hr IV Q2H LORETA Rx#:[id number] cefTRIAXone 2 gm In 50 Sodium Chloride 0.9% 50 ml @ 100 mls/hr IVPB Q24HR LORETA Rx#:[id number] d5/.9+kvo 350 385 105 Tube Feeding 720 720 135 Other 90 90 30 Output: Urine 2605 1785 125 Other: Voiding Method Indwelling Catheter Indwelling Catheter - Exam Patient is alert and oriented answering questions appropriately, writing down some questions, able to communicate well, she is maintained on mechanical ventilation through tracheostomy Head normocephalic and atraumatic Neck supple. Tracheostomy in place Lungs diminished with bilateral rhonchi. Heart regular rate and rhythm S1-S2, no rub or gallop Abdomen is soft nontender nondistended positive bowel sounds no hepatosplenomegaly. PEG tube in place Extremities no edema no cyanosis or clubbing Neuro follows commands. On mechanical ventilation - Labs CBC & Chem 7: 12/09/18 05:27 12/09/18 05:27 Labs: Abnormal Lab Results - Last 24 Hours (Table) 12/08/18 12/08/18 12/08/18 Range/Units 11:46 17:59 23:34 RBC (3.80-5.40) m/uL Hgb (11.4-16.0) gm/dL Hct (34.0-46.0) % RDW (11.5-15.5) % Sodium (137-145) mmol/L Chloride (98-107) mmol/L Carbon Dioxide (22-30) mmol/L BUN (7-17) mg/dL Creatinine (0.52-1.04) mg/dL Glucose (74-99) mg/dL POC Glucose (mg/dL) 163 H 172 H 177 H (75-99) mg/dL Calcium (8.4-10.2) mg/dL 12/09/18 12/09/18 12/09/18 Range/Units 05:27 05:27 05:46 RBC 2.83 L (3.80-5.40) m/uL Hgb 8.4 L (11.4-16.0) gm/dL Hct 27.0 L (34.0-46.0) % RDW 17.4 H (11.5-15.5) % Sodium 135 L (137-145) mmol/L Chloride 88 L (98-107) mmol/L Carbon Dioxide 44 H* (22-30) mmol/L BUN 18 H (7-17) mg/dL Creatinine 0.41 L (0.52-1.04) mg/dL Glucose 227 H (74-99) mg/dL POC Glucose (mg/dL) 263 H (75-99) mg/dL Calcium 8.1 L (8.4-10.2) mg/dL Microbiology - Last 24 Hours (Table) 12/02/18 22:52 Blood Culture - Final Blood No Growth after 144 hours Assessment and Plan Plan: 1. Sepsis present on admission related to pneumonia. Chest x-ray completed showing right lower lobe consolidation. Bilateral pleural effusions. Patient admitted to the intensive care unit. Initial lactic acid 2.1. Blood urine and sputum cultures have been ordered. White blood cell 16.4. Infectious disease following. Patient on cefepime and Vanco. Sputum culture currently growing Streptococcus pneumoniae. Repeat chest x-ray completed showing suspected sickle cell congestive heart failure mild pulmonary vascular congestion stable [id number]-[id number] pleural effusions or airspace disease. Likely atelectasis multifocal pneumonia and parapneumonic effusions are an alernative consideration. Sputum culture growing Streptococcus pneumoniae. Antibiotics adjusted to Rocephin per infectious disease. Patient taken off mechanical ventilation and placed on trach collar 2. Hypotension related to above. Patient maintained on Levophed. Resolved 3. History of non-small cell lung stage III adenocarcinoma 4. History of recent prolonged hospital admission in which she was transferred to [facility]. Patient was on mechanical ventilation for prolonged time requiring tracheostomy 5. Acute on chronic respiratory failure. 6. Bilateral pleural effusions. Pulmonary services have been consulted 7. History of COPD 8. History of CVA 9. History of osteoarthritis 10. History of hyperlipidemia 11. History of fibromyalgia 12. History of depression 13. Ex-smoker. Patient is smoking history of half-pack per day for 30 years 14. Bilateral lower extremity neuropathy. Patient started on Lyrica DVT prophylaxis heparin. GI prophylaxis Protonix
[2018-12-09 12:27] LABS: Glucose,Whole Blood 144 mg/dL (75-99)
[2018-12-09] MEDS: DEXTROSE 5%-0.9% NACL 1,000 ML IV SCH (17:42)
[2018-12-09 18:21] LABS: Glucose,Whole Blood 136 mg/dL (75-99)
[2018-12-10] MEDS: methylPREDNISolone SOD SUCCI 40 MG/ML 1 ML VIAL IV SCH ×4 (00:03→23:12)
[2018-12-10] MEDS: HEPARIN SODIUM,PORCINE 5,000 UNIT/ML 1 ML VIAL SQ SCH ×4 (00:03→23:12)
[2018-12-10] MEDS: INSULIN ASPART (NovoLOG) 100 UNIT/ML VIAL SQ SCH ×5 (00:03→23:23)
[2018-12-10] MEDS: IPRATROPIUM-ALBUTEROL 3 ML NEB INHALATION SCH ×6 (00:04→20:15)
[2018-12-10 00:14] LABS: Glucose,Whole Blood 219 mg/dL (75-99)
[2018-12-10 05:24] LABS: Glucose,Whole Blood 224 mg/dL (75-99)
[2018-12-10] MEDS: LEVOTHYROXINE 50 MCG TAB PO SCH (05:28)
[2018-12-10] MEDS: NOREPINEPHRINE 32 MG in SODIUM CHLORIDE 0.9% 218 ML IV SCH (05:28)
[2018-12-10 06:19] LABS: Anisocytosis Slight; HCT 29.7 % (34.0-46.0); HGB 8.8 gm/dL (11.4-16.0); Hypochromasia Moderate; MCH 29.5 pg (25.0-35.0); MCHC 29.8 g/dL (31.0-37.0); MCV 99.1 fL (80.0-100.0); Macrocytosis Slight; Mean Platelet Volume 7.4; Platelet Count 345 k/uL (150-450); RBC 2.99 m/uL (3.80-5.40); RDW 16.9 % (11.5-15.5); WBC 13.7 k/uL (3.8-10.6)
[2018-12-10 06:38] LABS: Blood Urea Nitrogen 25 mg/dL (7-17); Calcium 8.9 mg/dL (8.4-10.2); Chloride 93 mmol/L (98-107); Glucose 201 mg/dL (74-99); Potassium 3.7 mmol/L (3.5-5.1); Sodium 137 mmol/L (137-145)
[2018-12-10 06:45] LABS: Anion Gap 5 mmol/L
[2018-12-10 07:02] LABS: Carbon Dioxide 39 mmol/L (22-30)
--- NOTE | 2018-12-10 07:17 | XR ---
EXAMINATION TYPE: XR chest 1V portable DATE OF EXAM: 12/10/2018 COMPARISON: 12/09/2018 HISTORY: Shortness of breath. Follow-up exam. TECHNIQUE: Single frontal view of the chest is obtained. FINDINGS: There is an enlarged cardiac mediastinal silhouette is partially obscured. Layering pleura l effusions are seen similar to the prior, right greater than left with associated bibasilar airspace disease. There is mild pulmonary vascular congestion throughout. Median tracheostomy tube is again s een. There is mild osseous demineralization. No pneumothorax is appreciated. IMPRESSION: Similar small pleural effusions, right greater than left and associated bibasilar airspa ce disease with mild pulmonary vascular congestion in comparison to the exam of 12/09/2018.
[2018-12-10] MEDS ORDERED: POTASSIUM BICARBONATE/CIT AC 20 MEQ TABLET.EFF NG-TUBE SCH (08:00)
[2018-12-10] MEDS: oxyCODONE ER 10 MG TAB.ER.12H PO SCH ×2 (08:37→20:29)
[2018-12-10] MEDS: AMIODARONE 200 MG TAB PO SCH (08:40)
[2018-12-10] MEDS: CHLORHEXIDINE GLUCONATE 15 ML CUP MUCOUS MEM SCH ×2 (08:43→20:30)
[2018-12-10] MEDS: PANTOPRAZOLE 40 MG/10 ML VIAL IV SCH (08:44)
[2018-12-10] MEDS: FUROSEMIDE 10 MG/ML 4 ML VIAL IV SCH (08:44)
[2018-12-10] MEDS: QUEtiapine 50 MG TAB PO SCH ×2 (08:45→20:28)
[2018-12-10] MEDS: ONDANSETRON 4 MG/2 ML VIAL IVP PRN (08:45)
[2018-12-10] MEDS: SENNOSIDES-DOCUSATE SODIUM 1 EACH TAB PO SCH ×2 (08:45→20:29)
[2018-12-10] MEDS: PREGABALIN 50 MG CAP PO SCH ×2 (08:53→20:28)
[2018-12-10] MEDS: SODIUM CHLORIDE 0.45% 1,000 ML IV SCH (09:42)
--- NOTE | 2018-12-10 09:55 | PN ---
PROGRESS NOTE DATE OF SERVICE: December 10, 2018 This is a 63-year-old patient with a history of acute on chronic hypoxemic respiratory failure secondary to bilateral pneumonia caused by Streptococcus pneumoniae. The patient apparently was admitted back on December 03 with septic shock and right lower lobe pneumonia. She was previously at this hospital between September 28 and October 03 for an episode of mental status change. She was shipped to [facility]. She spent 34 days at [facility] and ended up with a tracheostomy and PEG tube placement. From there, she went to [facility] and then to [facility] on [facility]. She was sent to this facility from [facility] on the [place] subsequent to development of what appears to be pneumonia and lower saturations on pulse oximetry testing. The patient was recently taken off the vent on December 09. The patient is currently on trach collar at 40%. She is getting D5 0.9 IV at 25 mL an hour and she has got Vital AF at 45 with a goal of 45 mL an hour. Sputum showed evidence of Streptococcus pneumoniae. The patient in addition has a history of stage IV non-small cell lung cancer, status post chemotherapy chemoradiation and previous immune therapy. She has a history of underlying COPD, hypertension, chronic back pain, depression, and a number of comorbidities. Currently, she is resting comfortably. She is sitting up in bed. She feels like she is improved. The patient denies any chest pain or chest discomfort. States that her breathing is stable. Denies any cough or phlegm production. Denies fever, chills. Denies any GI or complaints at this time. PHYSICAL EXAMINATION: VITAL SIGNS: Current vital signs are reviewed. Temperature is 98.2, heart rate 84, respiratory rate 17, blood pressure 138/83, mean 101, saturations are about 96% on the 40% trach collar. GENERAL: She appears in no acute distress. She is mildly tachypneic. No audible wheezing or use of accessory muscles. HEENT: Examination is grossly unremarkable. NECK: Supple. Full range of motion. There is midline tracheostomy with a [place] valve. Trach collar in place. No neck vein distention. CARDIOVASCULAR: Examination reveals regular rhythm and rate. Heart rate about 80 beats per minute. S1, S2 normal. No S3, S4, or murmur. Heart sounds are distant, though. LUNGS: Reveal a few scattered rhonchi. No wheezes. No crackles. Breath sounds equal. ABDOMEN: Soft. Bowel sounds are heard. EXTREMITIES: Are intact. No cyanosis, clubbing, or edema. SKIN: Without rash. NEUROLOGIC: Examination reveals she moves all 4 extremities. She is alert and oriented. She does have some muscle weakness, though. MICROBIOLOGIC STUDY: Microbiologic study shows evidence of sputum with evidence of Streptococcus pneumoniae both on December 03 and December 02. Blood cultures have been negative. Urine is negative. LAB DATA: Lab data is reviewed. White count 13.7, hemoglobin 8.8, hematocrit 29.7, platelet count 345,000. Sodium 137, potassium 3.7, chloride 93, CO2 of 39. BUN and creatinine were 25 and 0.51. X-RAY: Chest x-ray shows a well-positioned tracheostomy tube. There is some fluid at the right base with some volume loss of the right base. There is probably some pleural effusion at the left base as well. Microbiology is previously mentioned. MEDICATIONS: Medications are reviewed. She is on Diamox, Cordarone, Pulmicort Rocephin, chlorhexidine, fentanyl, Lasix, subcu heparin, insulin, updrafts, lactulose, levothyroxine, Ativan, magnesium replacement, Solu-Medrol, Versed, Narcan, Levophed, Zofran, oxycodone, Protonix, phosphorus replacement, MiraLAX, potassium replacement, Lyrica, Seroquel, Senokot. ASSESSMENT: 1. Acute on chronic hypoxemic respiratory failure secondary to bilateral pneumonia caused by Streptococcus pneumoniae. 2. Acute sepsis and septic shock initially requiring fluid resuscitation and norepinephrine. 3. Stage IV non-small cell lung cancer, status post chemoradiation therapy and now on immunotherapy. 4. Severe chronic obstructive pulmonary disease with chronic obstructive pulmonary disease exacerbation. 5. Benign essential hypertension. 6. Chronic back pain. 7. Fibromyalgia. 8. Arthritis. 9. History of depression. 10.Status post recent prolonged course of mechanical ventilation for 34 days at [facility], status post tracheostomy and PEG tube placement. 11.Bilateral pleural effusions, which may be malignant in etiology. PLAN: Currently, the patient seemed to be relatively stable. She is on a 40% trach collar. Chest x-ray does show bilateral pleural effusions. She is getting D5 0.9 IV at 25 mL an hour and tube feeds. She seems to think that she has been doing better. Will continue to follow closely. Her overall prognosis is poor though given her diagnosis of stage IV non-small cell lung cancer. She has already gone through chemoradiation therapy and was on immunotherapy. Additional recommendations and suggestions are forthcoming. We will continue to follow. CRITICAL CARE TIME: 34 minutes. MANINDER / ADALBERTO: [id number] /
--- NOTE | 2018-12-10 10:30 | P.PN ---
Subjective Progress Note Date: 12/10/18 This is a 63-year-old female patient who presented to the hospital with worsening shortness of breath. Patient has a past medical history of recent hospital admission in which she was admitted to [facility] hearing transferred to [facility] which required prolonged intubation and tracheostomy. Patient was recently discharged to recent D/C to [facility] week ago. Patient has had increased sputum production and cough. Patient has past medical history of non- small cell lung cancer stage III, CVA, COPD, GERD, hyperlipidemia, osteoarthritis,chronic back pain and depression. Chest x-ray completed in ER showing right lower lobe consolidation with bilateral pleural effusions. Patient's WBC elevated at 10.9. Patient also have a lactic acid of 2.1. UA negative. Patient's blood pressure low. Patient started on Levophed and transferred to the ICU. Dr. Jackson has been consulted for critical care. Patient started on vancomycin and Zosyn for antibiotic. Blood urine and sputum cultures ordered. At this time patient is on mechanical ventilation resting comfortably in bed. Patient is following commands. On 12/04/2018 patient maintained on mechanical ventilation but awake and alert. Patient remains in intensive care unit on Levophed for pressure support. Patient reports that she feels better. Patient currently on vancomycin and Maxipime for antibiotics. Infectious disease and pulmonary services are following. White Blood cell 16.7. Blood,urine and sputum cultures pending On 12/05/2018 patient rates on mechanical ventilation but awake and alert following commands. patient reports that she feels overall improved. white blood cell improving to 13.6. At this time patient denies chest pain or shortness breath. Patient denies nausea vomiting diarrhea denies any urinary b urning or frequency 12/06/2018 patient is alert and awake following commands. Patient remains on m echanical ventilation. Patient has been off pressure support medication for 24 hours. Infectious disease and pulmonary following. At this time patient denies chest pain or shortness breath. Patient denies nausea vomiting or diarrhea. Patient denies any urinary burning or frequency. On 12/07/2018 patient is awake alert and awake following commands. Patient has been taken off mechanical ventilation placed on trach mask. Patient remains in the intensive care unit but showing improvement. Patient has been off pressure support medication for over 48 hours. Infectious disease and pulmonary are following. Antibiotics adjusted per ID. At this time patient denies chest pain or shortness of breath. Patient denies nausea vomiting or diarrhea. Patient denies any urinary burning or frequency On 12/08/2018 patient is awake alert and awake following commands. Patient is back on mechanical ventilation she was also started on IV Solu-Medrol. Patient remains in the intensive care unit but showing improvement. She denies any pain or discomfort at this time, lab results were reviewed potassium is a bit low at 3.3, hemoglobin is 8.5 Otherwise labs are unremarkable. On 12/09/2018 patient was seen and examined in the ICU she is alert and oriented 3 she is off the ventilator at this time and is maintained on tracheostomy shield with high flow oxygen, there is no fever or chills no headache or dizziness no chest pain she has occasional cough no nausea or vomiting no abdominal pain no diarrhea and no urinary symptoms On 12/10/2018 patient alert and oriented to 3. Patient remains on trach collar. Patient is showing improvement. At this time patient denies any chest pain or shortness breath. Patient denies nausea vomiting or diarrhea. Patient denies any urinary burning or frequency. Objective - Vital Signs Vital signs: Vital Signs Temp 98.2 F 12/10/18 04:00 Pulse 84 12/10/18 08:30 Resp 17 12/10/18 06:00 BP 138/83 12/10/18 06:00 Pulse Ox 96 12/10/18 06:12 Intake & Output 12/09/18 12/10/18 12/10/18 18:59 06:59 18:59 Intake Total 1185 1100 Output Total 1415 1205 Balance -230 -105 Weight 64.5 kg Intake: IV 420 425 d5/.9+kvo 420 425 Tube Feeding 675 585 Other 90 90 Output: Urine 1415 1205 Other: Voiding Method Indwelling Catheter Indwelling Catheter - Exam Head normocephalic Neck supple. Tracheostomy in place. Trach collar with shield Lungs diminished with bilateral rhonchi. Heart regular rate and rhythm S1-S2, no rub or gallop Abdomen is soft nontender nondistended positive bowel sounds no hepatosplenomegaly. PEG tube in place Extremities no edema Neuro follows commands. On mechanical ventilation - Labs CBC & Chem 7: 12/10/18 06:10 12/10/18 06:10 Labs: Abnormal Lab Results - Last 24 Hours (Table) 12/09/18 12/09/1812/09/19 Range/Units 12:01 17:35 23:59 WBC (3.8-10.6) k/uL RBC (3.80-5.40) m/uL Hgb (11.4-16.0) gm/dL Hct (34.0-46.0) % MCHC (31.0-37.0) g/dL RDW (11.5-15.5) % Chloride (98-107) mmol/L Carbon Dioxide (22-30) mmol/L BUN (7-17) mg/dL Creatinine (0.52-1.04) mg/dL Glucose (74-99) mg/dL POC Glucose (mg/dL) 144 H 136 H 219 H (75-99) mg/dL 12/10/18 12/10/18 12/10/18 Range/Units 05:21 06:10 06:10 WBC 13.7 H (3.8-10.6) k/uL RBC 2.99 L (3.80-5.40) m/uL Hgb 8.8 L (11.4-16.0) gm/dL Hct 29.7 L (34.0-46.0) % MCHC 29.8 L (31.0-37.0) g/dL RDW 16.9 H (11.5-15.5) % Chloride 93 L (98-107) mmol/L Carbon Dioxide 39 H (22-30) mmol/L BUN 25 H (7-17) mg/dL Creatinine 0.51 L (0.52-1.04) mg/dL Glucose 201 H (74-99) mg/dL POC Glucose (mg/dL) 224 H (75-99) mg/dL Assessment and Plan Assessment: 1. Sepsis present on admission related to pneumonia. Chest x-ray completed showing right lower lobe consolidation. Bilateral pleural effusions. Patient admitted to the intensive care unit. Initial lactic acid 2.1. Blood urine and sputum cultures have been ordered. White blood cell 16.4. Infectious disease following. Patient on cefepime and Vanco. Sputum culture currently growing Streptococcus pneumoniae. Repeat chest x-ray completed showing suspected sickle cell congestive heart failure mild pulmonary vascular congestion stable [id number] pleural effusions or airspace disease. Likely atelectasis multifocal pneumonia and parapneumonic effusions are an alernative consideration. Sputum culture growing Streptococcus pneumoniae. Antibiotics adjusted to Rocephin per infectious disease. Patient taken off mechanical ventilation and placed on trach collar 2. Hypotension related to above. Patient maintained on Levophed. Resolved 3. History of non-small cell lung stage III adenocarcinoma 4. History of recent prolonged hospital admission in which she was transferred to [facility]. Patient was on mechanical ventilation for prolonged time requiring tracheostomy 5. Acute on chronic respiratory failure. 6. Bilateral pleural effusions. Pulmonary services have been consulted 7. History of COPD 8. History of CVA 9. History of osteoarthritis 10. History of hyperlipidemia 11. History of fibromyalgia 12. History of depression 13. Ex-smoker. Patient is smoking history of half-pack per day for 30 years 14. Bilateral lower extremity neuropathy. Patient started on Lyrica DVT prophylaxis heparin. GI prophylaxis Protonix I performed an examination of the patient and discussed their management with the Nurse Practitioner. I have reviewed the Nurse Practitioner's notes and agree with the documented findings and plan of care
[2018-12-10] MEDS: BUDESONIDE 1 MG/2 ML NEBU INHALATION SCH ×2 (12:17→20:17)
[2018-12-10 12:53] LABS: Glucose,Whole Blood 180 mg/dL (75-99)
[2018-12-10] MEDS: LORazepam 0.5 MG TAB PO PRN ×2 (13:59→23:12)
[2018-12-10 17:44] LABS: Glucose,Whole Blood 149 mg/dL (75-99)
--- NOTE | 2018-12-10 19:31 | PN ---
PROGRESS NOTE DATE OF SERVICE: 12/10/2018. REASON FOR FOLLOW UP: Strep pneumo pneumonia. INTERVAL HISTORY: The patient is currently afebrile. Patient is breathing comfortably. Denies having any chest pain. Occasional cough. No abdominal pain. No nausea, vomiting or diarrhea. Currently on trach collar. On examination, blood pressure 141/80 with a pulse of 83, temperature 98.5. She is 93% on trach collar. General description is an elderly female lying in bed in no distress. Respiratory system: Unlabored breathing. Some coarse breath sounds bilaterally. No wheeze. Heart S1, S2. Regular rate and rhythm. Abdomen soft. No tenderness. LABS: Hemoglobin 8.8, white count 13.7, BUN of 25, creatinine 0.51. DIAGNOSTIC IMPRESSION AND PLAN: 1. Patient with right lower lobe pneumonia, likely chronic strep pneumo, currently covered with Rocephin 2 g daily with the plan to finish therapy with oral antibiotics. 2. The patient with leukocytosis, more likely steroid related. Will monitor closely. The patient not showing any evidence of worsening of clinical condition. 3. Continue supportive care. MMODL / IJN: [id number] /
[2018-12-10] MEDS: FORMOTEROL FUMARATE 20 MCG/2 ML NEBU INHALATION SCH (20:17)
[2018-12-10 23:23] LABS: Glucose,Whole Blood 194 mg/dL (75-99)
[2018-12-10 23:53] LABS: Glucose,Whole Blood 189 mg/dL (75-99)
[2018-12-11] MEDS: IPRATROPIUM-ALBUTEROL 3 ML NEB INHALATION SCH ×6 (00:22→20:10)
[2018-12-11 04:29] LABS: Anisocytosis Slight; HCT 32.2 % (34.0-46.0); HGB 9.6 gm/dL (11.4-16.0); Hypochromasia Moderate; MCH 29.5 pg (25.0-35.0); MCHC 29.7 g/dL (31.0-37.0); MCV 99.3 fL (80.0-100.0); Macrocytosis Slight; Platelet Count 394 k/uL (150-450); RBC 3.24 m/uL (3.80-5.40); RDW 16.7 % (11.5-15.5); WBC 16.2 k/uL (3.8-10.6)
[2018-12-11 05:06] LABS: Blood Urea Nitrogen 32 mg/dL (7-17); Calcium 9.1 mg/dL (8.4-10.2); Chloride 96 mmol/L (98-107); Glucose 178 mg/dL (74-99); Potassium 4.1 mmol/L (3.5-5.1); Sodium 139 mmol/L (137-145)
[2018-12-11 05:13] LABS: Anion Gap 1 mmol/L
[2018-12-11 05:27] LABS: Carbon Dioxide 42 mmol/L (22-30)
[2018-12-11 05:38] LABS: Glucose,Whole Blood 168 mg/dL (75-99)
[2018-12-11] MEDS: INSULIN ASPART (NovoLOG) 100 UNIT/ML VIAL SQ SCH ×4 (06:16→20:54)
[2018-12-11] MEDS: LEVOTHYROXINE 50 MCG TAB PO SCH (06:16)
[2018-12-11] MEDS: PREGABALIN 50 MG CAP PO SCH ×2 (06:17→20:49)
[2018-12-11 07:49] LABS: Magnesium 2.1 mg/dL (1.6-2.3); Phosphorus 3.5 mg/dL (2.5-4.5)
[2018-12-11] MEDS: FORMOTEROL FUMARATE 20 MCG/2 ML NEBU INHALATION SCH ×2 (08:12→20:24)
[2018-12-11] MEDS: BUDESONIDE 1 MG/2 ML NEBU INHALATION SCH ×2 (08:12→20:10)
--- NOTE | 2018-12-11 08:41 | XR ---
EXAMINATION TYPE: XR chest 1V portable DATE OF EXAM: 12/11/2018 COMPARISON: 12/10/2018 HISTORY: Shortness of breath TECHNIQUE: Single frontal view of the chest is obtained. FINDINGS: There is redemonstration of an enlarged partially visualized cardia mediastinal silhouette . Median sternotomy tracheostomy is again noted. Pleural effusions are similar, right greater the lef t with associated bibasilar airspace disease. Pulmonary vascular congestion is also similar in mild. Diffuse osseous demineralization is again seen. IMPRESSION: Overall stable exam from the prior of 12/10/2018 stable pleural effusions and bibasilar ai rspace disease as well as mild pulmonary vascular congestion.
[2018-12-11] MEDS: SODIUM CHLORIDE 0.45% 1,000 ML IV SCH (09:23)
[2018-12-11] MEDS: methylPREDNISolone SOD SUCCI 40 MG/ML 1 ML VIAL IV SCH ×3 (09:23→22:57)
[2018-12-11] MEDS: HEPARIN SODIUM,PORCINE 5,000 UNIT/ML 1 ML VIAL SQ SCH ×3 (09:23→22:56)
[2018-12-11] MEDS: AMIODARONE 200 MG TAB PO SCH (09:26)
[2018-12-11] MEDS: CHLORHEXIDINE GLUCONATE 15 ML CUP MUCOUS MEM SCH ×2 (09:26→20:40)
[2018-12-11] MEDS: oxyCODONE ER 10 MG TAB.ER.12H PO SCH ×2 (09:27→20:49)
[2018-12-11] MEDS: LISINOPRIL 10 MG TAB PO SCH (09:27)
[2018-12-11] MEDS: FUROSEMIDE 10 MG/ML 4 ML VIAL IV SCH (09:27)
[2018-12-11] MEDS: PANTOPRAZOLE 40 MG/10 ML VIAL IV SCH (09:28)
[2018-12-11] MEDS: QUEtiapine 50 MG TAB PO SCH ×2 (09:28→20:53)
[2018-12-11] MEDS: SENNOSIDES-DOCUSATE SODIUM 1 EACH TAB PO SCH ×2 (09:28→20:49)
--- NOTE | 2018-12-11 09:35 | PN ---
PROGRESS NOTE DATE OF SERVICE: 12/11/2018. A 63-year-old patient with history of acute on chronic hypoxemic respiratory failure secondary to Streptococcus pneumoniae. The patient apparently was admitted back on December 03 with septic shock and right lower lobe pneumonia. She was previously at this hospital between September 28 and for an episode of mental status change. She was transferred to [facility] and she spent 34 days at [facility], ended up with a tracheostomy and PEG tube placement. From there, she went to [facility] and then to [facility] on [facility]. She was sent to this facility from [facility] on [facility] subsequent to development of what appears to be pneumonia with lower saturations on pulse oximetry. The patient was taken off the ventilator on December 09. She is currently on trach collar at 40%. Doing relatively well. She has no particular complaints. She denies any shortness of breath, chest pain, chest discomfort, cough, wheezing, or phlegm production. The patient is also getting a 0.45 IV at 25 mL an hour. Her other medical problems include stage IV non-small cell lung cancer, status post chemotherapy, status post concurrent chemoradiation therapy and immune therapy. She also has a history of COPD, hypertension, chronic back pain, depression, and a number of other comorbidities. Again, she is resting comfortably today. PHYSICAL EXAMINATION: Current vital signs are reviewed. Current temperature is 98.1, heart rate 72, respiratory rate 15, blood pressure 158/94 with mean of 115 and saturations are 97%. That is on 40% trach collar. She appears in no acute distress. HEENT: Examination is grossly unremarkable. Mucous membranes are moist. NECK: Supple. Full range of motion. There is a midline tracheostomy. Trach collar in place. No adenopathy, thyromegaly or neck vein distention. CARDIOVASCULAR: Examination reveals regular rhythm rate. S1, S2 normal. No S3, S4, or murmur. LUNGS: Reveal coarse rhonchi. Breath sounds equal bilaterally. They are diminished throughout. No wheezes. Slight prolongation on forced maneuver. No crackles. ABDOMEN: Soft. Bowel sounds are heard. PEG tube noted. EXTREMITIES: Intact. No cyanosis, clubbing, or significant edema. SKIN: Without rash. NEUROLOGIC: Examination is brief but nonfocal. Microbiologic studies show sputum samples both on December 02 and December 03 showed positive for Streptococcus pneumoniae. Her most recent chest x-ray from today shows a possible right lower lobe infiltrate. LABS: Reviewed. White count 16.2, hemoglobin 9.6, hematocrit 32.2, platelet count 294,000. Sodium 139, potassium 4.1, chloride 96, CO2 is 42, anion gap is 1, BUN and creatinine were 32 and 0.65. Medications are reviewed. She is currently on Pulmicort 1 mg, ceftriaxone 2 g a day, formoterol 20 mcg twice a day, albuterol and Atrovent updrafts q.i.d. and p.r.n. and Solu-Medrol 40 mg q.8 hours. The rest of the medications appear appropriate. ASSESSMENT: 1. Acute on chronic hypoxemic respiratory failure secondary to bilateral pneumonia caused by Streptococcus pneumoniae. 2. Acute sepsis and septic shock, initially requiring fluid resuscitation and norepinephrine, resolved. 3. Stage IV non-small cell lung cancer, status post concurrent chemoradiation and immunotherapy. 4. Severe chronic obstructive pulmonary disease with COPD exacerbation, improved. 5. Benign essential hypertension. 6. Chronic back pain. 7. Fibromyalgia. 8. Arthritis. 9. History of depression. 10.Status post recent prolonged course of mechanical ventilation for 34 days at [facility] with subsequent tracheostomy and PEG tube placement. 11.Bilateral pleural effusions, right greater than left, which may be malignant in origin. PLAN: Currently, the patient seemed relatively stable. Will add back her lisinopril and Apresoline for blood pressure control. The patient can be transferred to [address] [place] [address]. No additional recommendations are made. Prognosis is guarded. Will continue to follow closely. Additional recommendations and suggestions are forthcoming. MMODL / IJN: [id number] /
--- NOTE | 2018-12-11 10:49 | P.PN ---
Subjective Progress Note Date: 12/11/18 This is a 63-year-old female patient who presented to the hospital with worsening shortness of breath. Patient has a past medical history of recent hospital admission in which she was admitted to [facility] hearing transferred to [facility] which required prolonged intubation and tracheostomy. Patient was recently discharged to recent D/C to [facility] week ago. Patient has had increased sputum production and cough. Patient has past medical history of non- small cell lung cancer stage III, CVA, COPD, GERD, hyperlipidemia, osteoarthritis,chronic back pain and depression. Chest x-ray completed in ER showing right lower lobe consolidation with bilateral pleural effusions. Patient's WBC elevated at 10.9. Patient also have a lactic acid of 2.1. UA negative. Patient's blood pressure low. Patient started on Levophed and transferred to the ICU. Dr. Jackson has been consulted for critical care. Patient started on vancomycin and Zosyn for antibiotic. Blood urine and sputum cultures ordered. At this time patient is on mechanical ventilation resting comfortably in bed. Patient is following commands. On 12/04/2018 patient maintained on mechanical ventilation but awake and alert. Patient remains in intensive care unit on Levophed for pressure support. Patient reports that she feels better. Patient currently on vancomycin and Maxipime for antibiotics. Infectious disease and pulmonary services are following. White Blood cell 16.7. Blood,urine and sputum cultures pending On 12/05/2018 patient rates on mechanical ventilation but awake and alert following commands. patient reports that she feels overall improved. white blood cell improving to 13.6. At this time patient denies chest pain or shortness breath. Patient denies nausea vomiting diarrhea denies any urinary b urning or frequency 12/06/2018 patient is alert and awake following commands. Patient remains on m echanical ventilation. Patient has been off pressure support medication for 24 hours. Infectious disease and pulmonary following. At this time patient denies chest pain or shortness breath. Patient denies nausea vomiting or diarrhea. Patient denies any urinary burning or frequency. On 12/07/2018 patient is awake alert and awake following commands. Patient has been taken off mechanical ventilation placed on trach mask. Patient remains in the intensive care unit but showing improvement. Patient has been off pressure support medication for over 48 hours. Infectious disease and pulmonary are following. Antibiotics adjusted per ID. At this time patient denies chest pain or shortness of breath. Patient denies nausea vomiting or diarrhea. Patient denies any urinary burning or frequency On 12/08/2018 patient is awake alert and awake following commands. Patient is back on mechanical ventilation she was also started on IV Solu-Medrol. Patient remains in the intensive care unit but showing improvement. She denies any pain or discomfort at this time, lab results were reviewed potassium is a bit low at 3.3, hemoglobin is 8.5 Otherwise labs are unremarkable. On 12/09/2018 patient was seen and examined in the ICU she is alert and oriented 3 she is off the ventilator at this time and is maintained on tracheostomy shield with high flow oxygen, there is no fever or chills no headache or dizziness no chest pain she has occasional cough no nausea or vomiting no abdominal pain no diarrhea and no urinary symptoms On 12/10/2018 patient alert and oriented to 3. Patient remains on trach collar. Patient is showing improvement. At this time patient denies any chest pain or shortness breath. Patient denies nausea vomiting or diarrhea. Patient denies any urinary burning or frequency. On 12/11/2018 patient is alert and oriented 3. Patient is continuing to show i mprovement. White blood cell increasing blood per infectious disease likely reactive from steroids. Patient remains on Rocephin. Continue physical therapy. At this time patient denies chest pain or shortness of breath. Patient denies nausea vomiting or diarrhea. Patient denies any urinary burning or frequency. Objective - Vital Signs Vital signs: Vital Signs Temp 98.3 F 12/11/18 08:00 Pulse 74 12/11/18 10:00 Resp 13 12/11/18 10:00 BP 160/90 12/11/18 10:00 Pulse Ox 97 12/11/18 10:00 Intake & Output 12/10/18 12/11/18 12/11/18 18:59 06:59 18:59 Intake Total 1160 840 360 Output Total 2295 920 315 Balance -1135 -80 45 Weight 67 kg Intake: IV 25 d5/.9+kvo 25 Intake, IV Titration 250 300 150 Amount Sodium Chloride 0.45% 1, 250 300 100 000 ml @ 25 mls/hr IV . Q24H [facility] Rx#:[id number] cefTRIAXone 2 gm In 50 Sodium Chloride 0.9% 50 ml @ 100 mls/hr IVPB Q24HR [facility] Rx#:[id number] Oral 300 Tube Feeding 495 540 180 Other 90 30 Output: Urine 2295 920 315 Other: Voiding Method Indwelling Catheter Indwelling Catheter Indwelling Catheter - Exam Head normocephalic Neck supple. Tracheostomy in place. Trach collar with shield Lungs diminished with bilateral rhonchi. Heart regular rate and rhythm S1-S2, no rub or gallop Abdomen is soft nontender nondistended positive bowel sounds no hepatosplenomegaly. PEG tube in place Extremities no edema Neuro follows commands. On mechanical ventilation - Labs CBC & Chem 7: 12/11/18 04:20 12/11/18 04:20 Labs: Abnormal Lab Results - Last 24 Hours (Table) 12/10/18 12/10/18 12/10/18 Range/Units 12:28 17:40 23:20 WBC (3.8-10.6) k/uL RBC (3.80-5.40) m/uL Hgb (11.4-16.0) gm/dL Hct (34.0-46.0) % MCHC (31.0-37.0) g/dL RDW (11.5-15.5) % Chloride (98-107) mmol/L Carbon Dioxide (22-30) mmol/L BUN (7-17) mg/dL Glucose (74-99) mg/dL POC Glucose (mg/dL) 180 H 149 H 194 H (75-99) mg/dL 12/10/18 12/11/18 12/11/18 Range/Units 23:40 04:20 04:20 WBC 16.2 H (3.8-10.6) k/uL RBC 3.24 L (3.80-5.40) m/uL Hgb 9.6 L (11.4-16.0) gm/dL Hct 32.2 L (34.0-46.0) % MCHC 29.7 L (31.0-37.0) g/dL RDW 16.7 H (11.5-15.5) % Chloride 96 L (98-107) mmol/L Carbon Dioxide 42 H* (22-30) mmol/L BUN 32 H (7-17) mg/dL Glucose 178 H (74-99) mg/dL POC Glucose (mg/dL) 189 H (75-99) mg/dL 12/11/18 Range/Units 05:36 WBC (3.8-10.6) k/uL RBC (3.80-5.40) m/uL Hgb (11.4-16.0) gm/dL Hct (34.0-46.0) % MCHC (31.0-37.0) g/dL RDW (11.5-15.5) % Chloride (98-107) mmol/L Carbon Dioxide (22-30) mmol/L BUN (7-17) mg/dL Glucose (74-99) mg/dL POC Glucose (mg/dL) 168 H (75-99) mg/dL Assessment and Plan Assessment: 1. Sepsis present on admission related to pneumonia. Chest x-ray completed showing right lower lobe consolidation. Bilateral pleural effusions. Patient admitted to the intensive care unit. Initial lactic acid 2.1. Blood urine and sputum cultures have been ordered. White blood cell 16.4. Infectious disease following. Patient on cefepime and Vanco. Sputum culture currently growing Streptococcus pneumoniae. Repeat chest x-ray completed showing suspected sickle cell congestive heart failure mild pulmonary vascular congestion stable [id number] pleural effusions or airspace disease. Likely atelectasis multifocal pneumonia and parapneumonic effusions are an alernative consideration. Sputum culture growing Streptococcus pneumoniae. Antibiotics adjusted to Rocephin per infectious disease. Patient taken off mechanical ventilation and placed on trach collar 2. Hypotension related to above. Patient maintained on Levophed. Resolved 3. History of non-small cell lung stage III adenocarcinoma 4. History of recent prolonged hospital admission in which she was transferred to [facility]. Patient was on mechanical ventilation for prolonged time requiring tracheostomy 5. Acute on chronic respiratory failure. 6. Bilateral pleural effusions. Pulmonary services have been consulted 7. History of COPD 8. History of CVA 9. History of osteoarthritis 10. History of hyperlipidemia 11. History of fibromyalgia 12. History of depression 13. Ex-smoker. Patient is smoking history of half-pack per day for 30 years 14. Bilateral lower extremity neuropathy. Patient started on Lyrica DVT prophylaxis heparin. GI prophylaxis Protonix Physical therapy and administrator social welfare consulted for discharge planning I performed an examination of the patient and discussed their management with the Nurse Practitioner. I have reviewed the Nurse Practitioner's notes and agree with the documented findings and plan of care
[2018-12-11] MEDS: LORazepam 0.5 MG TAB PO PRN ×3 (11:27→22:56)
[2018-12-11 12:20] LABS: Glucose,Whole Blood 190 mg/dL (75-99)
[2018-12-11] MEDS: hydrALAZINE HCL 25 MG TAB PO SCH ×2 (13:41→20:49)
[2018-12-11] MEDS ORDERED: ANIDULAFUNGIN 200 MG in SODIUM CHLORIDE 0.9% 200 ML IVPB ONE ×4 (14:30)
--- NOTE | 2018-12-11 16:59 | PN ---
PROGRESS NOTE DATE OF SERVICE: December 11, 2018. REASON FOR FOLLOW UP: Strep pneumo pneumonia. INTERVAL HISTORY: The patient is currently afebrile. The patient has been breathing comfortably. Denies having any chest pain or shortness of breath. Occasional cough. No nausea, vomiting, abdominal pain, no diarrhea. PHYSICAL EXAMINATION: Blood pressure is 160/90 with a pulse of 74, temperature 98. She is 97% on trach collar. General description is an elderly female up in the bed in no distress. Respiratory system: Unlabored breathing. Clear to auscultation anteriorly. Heart S1, S2. Regular rate and rhythm. ABDOMEN: Soft, no tenderness. LABS: White count slightly elevated today 16,000. DIAGNOSTIC IMPRESSION AND PLAN: 1. Patient is strep pneumo bacteremia for which the patient is currently covered with IV Rocephin to continue transition to oral Ceftin on discharge. 2. Patient with elevated white count more likely secondary to oropharyngeal candidiasis with dax showing up in the sputum. Diflucan could not be added because of multiple drug interaction and will be added and white count will be monitored closely. MMODL / IJN: [id number] /
[2018-12-11] MEDS: LACTULOSE 20 GM/30 ML CUP PO PRN (17:08)
[2018-12-11 20:36] LABS: Glucose,Whole Blood 236 mg/dL (75-99)
[2018-12-12 00:02] LABS: Glucose,Whole Blood 191 mg/dL (75-99)
[2018-12-12] MEDS: INSULIN ASPART (NovoLOG) 100 UNIT/ML VIAL SQ SCH ×4 (00:06→17:07)
[2018-12-12] MEDS: IPRATROPIUM-ALBUTEROL 3 ML NEB INHALATION SCH ×7 (00:33→23:55)
[2018-12-12 06:06] LABS: Glucose,Whole Blood 214 mg/dL (75-99)
[2018-12-12] MEDS: PANTOPRAZOLE 40 MG TABLET PO SCH (06:19)
[2018-12-12] MEDS: LEVOTHYROXINE 50 MCG TAB PO SCH (06:19)
[2018-12-12] MEDS: hydrALAZINE HCL 25 MG TAB PO SCH ×3 (06:19→23:13)
[2018-12-12] MEDS: ONDANSETRON 4 MG/2 ML VIAL IVP PRN (06:20)
[2018-12-12 07:10] LABS: Anisocytosis Slight; HCT 32.7 % (34.0-46.0); HGB 9.9 gm/dL (11.4-16.0); Hypochromasia Moderate; MCH 29.8 pg (25.0-35.0); MCHC 30.2 g/dL (31.0-37.0); MCV 98.8 fL (80.0-100.0); Macrocytosis Slight; Mean Platelet Volume 8.1; Platelet Count 428 k/uL (150-450); RBC 3.31 m/uL (3.80-5.40); RDW 17.5 % (11.5-15.5)
[2018-12-12 07:19] LABS: Anion Gap 5 mmol/L; Blood Urea Nitrogen 33 mg/dL (7-17); Calcium 9.1 mg/dL (8.4-10.2); Carbon Dioxide 37 mmol/L (22-30); Chloride 98 mmol/L (98-107); Glucose 198 mg/dL (74-99); Potassium 4.1 mmol/L (3.5-5.1); Sodium 140 mmol/L (137-145)
--- NOTE | 2018-12-12 07:41 | XR ---
EXAMINATION TYPE: XR chest 1V portable DATE OF EXAM: 12/12/2018 CLINICAL HISTORY: Difficulty breathing progress study. TECHNIQUE: Single AP portable upright view of the chest is obtained. COMPARISON: Chest x-ray from one day earlier and older studies. FINDINGS: Tracheostomy tube is redemonstrated. There is persistent bibasilar opacities on background chronic parenchymal change. Cardiac silhouette size is stable and mildly enlarged with atherosclerot ic thoracic aorta. Osseous structures are intact. IMPRESSION: Overall stable findings, mild cardiomegaly and chronic parenchymal change with persiste nt small bilateral pleural effusions and bibasilar acute infiltrate and/or atelectasis all redemonstr ated.
[2018-12-12] MEDS: FORMOTEROL FUMARATE 20 MCG/2 ML NEBU INHALATION SCH ×2 (07:44→19:27)
[2018-12-12] MEDS: BUDESONIDE 1 MG/2 ML NEBU INHALATION SCH ×2 (07:44→19:13)
[2018-12-12] MEDS: LORazepam 0.5 MG TAB PO PRN ×2 (09:51→16:24)
[2018-12-12] MEDS: oxyCODONE ER 10 MG TAB.ER.12H PO SCH ×2 (09:51→20:34)
[2018-12-12] MEDS: LISINOPRIL 10 MG TAB PO SCH (09:52)
[2018-12-12] MEDS: QUEtiapine 50 MG TAB PO SCH ×2 (09:52→20:34)
[2018-12-12] MEDS: AMIODARONE 200 MG TAB PO SCH (09:52)
[2018-12-12] MEDS: SENNOSIDES-DOCUSATE SODIUM 1 EACH TAB PO SCH ×2 (09:52→20:34)
[2018-12-12] MEDS: PREGABALIN 50 MG CAP PO SCH ×2 (09:52→20:34)
[2018-12-12] MEDS: methylPREDNISolone SOD SUCCI 40 MG/ML 1 ML VIAL IV SCH ×3 (09:53→23:13)
[2018-12-12] MEDS: FUROSEMIDE 10 MG/ML 4 ML VIAL IV SCH ×2 (09:53→20:34)
[2018-12-12] MEDS: HEPARIN SODIUM,PORCINE 5,000 UNIT/ML 1 ML VIAL SQ SCH ×3 (09:54→23:13)
--- NOTE | 2018-12-12 10:54 | P.PN ---
Subjective Progress Note Date: 12/12/18 Principal diagnosis: Acute sepsis, septic shock, bilateral pneumonia with sepsis. The patient is seen today 12/12/2017 in follow-up on the selective care unit. She is currently awake and alert in no acute distress. Resting quite comfortably in bed. Denies any worsening shortness of breath, cough or congestion. Chest x-ray continues to show some fluid volume overload. Lasix 40 mg IV daily. She is maintaining good O2 saturations in the mid 90s on 35% FiO2 via trach collar. She's afebrile. Hemodynamically stable. Sputum culture was positive for Streptococcus pneumoniae. White count 18.0. Hemoglobin 9.9. Creatinine 0.62. Remains on DuoNeb inhalations, Perforomist and Pulmicort inhalations, IV Solu-Medrol, antibiotics in the form of ceftriaxone. She is also on anidulafungin. Objective - Vital Signs Vital signs: Vital Signs Temp 98.6 F 12/12/18 08:35 Pulse 84 12/12/18 08:35 Resp 18 12/12/18 08:35 BP 154/71 12/12/18 08:35 Pulse Ox 95 12/12/18 08:35 Intake & Output 12/11/18 12/12/18 12/12/18 18:59 06:59 18:59 Intake Total 1210 520 260 Output Total 1435 750 Balance -225 -230 260 Weight 67 kg 62 kg Intake: Intake, IV Titration 610 250 Amount Anidulafungin 200 mg In 260 Sodium Chloride 0.9% 200 ml @ 84 mls/hr IVPB ONCE ONE Rx#:[id number] Sodium Chloride 0.45% 1, 300 250 000 ml @ 25 mls/hr IV . Q24H [facility] Rx#:[id number] cefTRIAXone 2 gm In 50 Sodium Chloride 0.9% 50 ml @ 100 mls/hr IVPB Q24HR [facility] Rx#:[id number] Oral 260 Tube Feeding 540 270 Other 60 Output: Urine 1435 750 Other: Voiding Method Indwelling Catheter Indwelling Catheter - Exam GENERAL EXAM: Alert, active, comfortable in no apparent distress. On 35% trach collar. HEAD: Normocephalic. EYES: Normal reaction of pupils, equal size. NOSE: Clear with pink turbinates. THROAT: The cast me tube in place. No erythema or exudates. NECK: No masses, no JVD. CHEST: No chest wall deformity. LUNGS: Equal air entry with pickles in the bilateral posterior bases. CVS: S1 and S2 normal with no audible murmur, regular rhythm. ABDOMEN: PEG tube exit site clean and dry. No hepatosplenomegaly, normal bowel sounds, no guarding or rigidity. SPINE: No scoliosis or deformity SKIN: No rashes CENTRAL NERVOUS SYSTEM: No focal deficits, tone is normal in all 4 extremities. EXTREMITIES: There is 1-2+ peripheral edema. No clubbing, no cyanosis. Peripheral pulses are intact. - Labs CBC & Chem 7: 12/12/18 06:12 12/12/18 06:12 Labs: Abnormal Lab Results - Last 24 Hours (Table) 12/11/18 12/11/18 12/11/18 Range/Units 12:00 20:33 23:58 WBC (3.8-10.6) k/uL RBC (3.80-5.40) m/uL Hgb (11.4-16.0) gm/dL Hct (34.0-46.0) % MCHC (31.0-37.0) g/dL RDW (11.5-15.5) % Carbon Dioxide (22-30) mmol/L BUN (7-17) mg/dL Glucose (74-99) mg/dL POC Glucose (mg/dL) 190 H 236 H 191 H (75-99) mg/dL 12/12/18 12/12/18 12/12/18 Range/Units 06:03 06:12 06:12 WBC 18.0 H (3.8-10.6) k/uL RBC 3.31 L (3.80-5.40) m/uL Hgb 9.9 L (11.4-16.0) gm/dL Hct 32.7 L (34.0-46.0) % MCHC 30.2 L (31.0-37.0) g/dL RDW 17.5 H (11.5-15.5) % Carbon Dioxide 37 H (22-30) mmol/L BUN 33 H (7-17) mg/dL Glucose 198 H (74-99) mg/dL POC Glucose (mg/dL) 214 H (75-99) mg/dL Assessment and Plan Assessment: Impression: 1 acute on chronic hypoxic respiratory failure secondary to bilateral pneumonia secondary to Streptococcus pneumonia as documented from the sputum culture. 2 acute sepsis and septic shock secondary to pneumonia patient required fluid boluses and pressors. Presently off norepinephrine, and hemodynamically stable 3 stage IV non-small cell lung cancer post-chemoradiation therapy and was on immunotherapy. 4 severe COPD with acute exacerbation 5 hypertension 6 chronic back pain and fibromyalgia and arthritis 7 history of depression 8 history of recent prolonged course of mechanical ventilation in September of 2018 requiring tracheostomy and PEG tube placement 9 small bilateral pleural effusions, etiology is not clear, I believe the effusions could be parapneumonic. Although the possibility of malignant pleural effusions not entirely ruled out. Considering the improvement on the chest x- ray today, I have no plans to perform thoracentesis on the patient today. Recommendation: The patient was seen and evaluated by Dr. Fan. Chest x-ray and labs were reviewed. We will increase her Lasix 40 mg IV every 12 hours. Repeat a chest x-ray in the a.m. Continue her current treatment plan with bronchodilators, IV Solu medrol, antibiotics. We will continue to follow and make further recommendations based on her clinical status. I, the cosigning physician, performed a history & physical examination of the patient. Lungs sounds with crackles in the bilateral posterior bases. Maintaining good O2 saturations in the 90s on 35% FiO2 via trach collar. I discussed the assessment and plan of care with my nurse practitioner, Rosie Fay. I attest to the above note as dictated by her.
[2018-12-12 11:59] LABS: Glucose,Whole Blood 156 mg/dL (75-99)
[2018-12-12] MEDS: SODIUM CHLORIDE 0.45% 1,000 ML IV SCH (14:26)
[2018-12-12] MEDS: CHLORHEXIDINE GLUCONATE 15 ML CUP MUCOUS MEM SCH ×2 (14:26→20:35)
--- NOTE | 2018-12-12 14:52 | P.PN ---
Subjective Progress Note Date: 12/12/18 This is a 63-year-old female patient who presented to the hospital with worsening shortness of breath. Patient has a past medical history of recent hospital admission in which she was admitted to [facility] hearing transferred to [facility] which required prolonged intubation and tracheostomy. Patient was recently discharged to recent D/C to [facility] week ago. Patient has had increased sputum production and cough. Patient has past medical history of non- small cell lung cancer stage III, CVA, COPD, GERD, hyperlipidemia, osteoarthritis,chronic back pain and depression. Chest x-ray completed in ER showing right lower lobe consolidation with bilateral pleural effusions. Patient's WBC elevated at 10.9. Patient also have a lactic acid of 2.1. UA negative. Patient's blood pressure low. Patient started on Levophed and transferred to the ICU. Dr. Jackson has been consulted for critical care. Patient started on vancomycin and Zosyn for antibiotic. Blood urine and sputum cultures ordered. At this time patient is on mechanical ventilation resting comfortably in bed. Patient is following commands. On 12/04/2018 patient maintained on mechanical ventilation but awake and alert. Patient remains in intensive care unit on Levophed for pressure support. Patient reports that she feels better. Patient currently on vancomycin and Maxipime for antibiotics. Infectious disease and pulmonary services are following. White Blood cell 16.7. Blood,urine and sputum cultures pending On 12/05/2018 patient rates on mechanical ventilation but awake and alert following commands. patient reports that she feels overall improved. white blood cell improving to 13.6. At this time patient denies chest pain or shortness breath. Patient denies nausea vomiting diarrhea denies any urinary b urning or frequency 12/06/2018 patient is alert and awake following commands. Patient remains on m echanical ventilation. Patient has been off pressure support medication for 24 hours. Infectious disease and pulmonary following. At this time patient denies chest pain or shortness breath. Patient denies nausea vomiting or diarrhea. Patient denies any urinary burning or frequency. On 12/07/2018 patient is awake alert and awake following commands. Patient has been taken off mechanical ventilation placed on trach mask. Patient remains in the intensive care unit but showing improvement. Patient has been off pressure support medication for over 48 hours. Infectious disease and pulmonary are following. Antibiotics adjusted per ID. At this time patient denies chest pain or shortness of breath. Patient denies nausea vomiting or diarrhea. Patient denies any urinary burning or frequency On 12/08/2018 patient is awake alert and awake following commands. Patient is back on mechanical ventilation she was also started on IV Solu-Medrol. Patient remains in the intensive care unit but showing improvement. She denies any pain or discomfort at this time, lab results were reviewed potassium is a bit low at 3.3, hemoglobin is 8.5 Otherwise labs are unremarkable. On 12/09/2018 patient was seen and examined in the ICU she is alert and oriented 3 she is off the ventilator at this time and is maintained on tracheostomy shield with high flow oxygen, there is no fever or chills no headache or dizziness no chest pain she has occasional cough no nausea or vomiting no abdominal pain no diarrhea and no urinary symptoms On 12/10/2018 patient alert and oriented to 3. Patient remains on trach collar. Patient is showing improvement. At this time patient denies any chest pain or shortness breath. Patient denies nausea vomiting or diarrhea. Patient denies any urinary burning or frequency. On 12/11/2018 patient is alert and oriented 3. Patient is continuing to show i mprovement. White blood cell increasing blood per infectious disease likely reactive from steroids. Patient remains on Rocephin. Continue physical therapy. At this time patient denies chest pain or shortness of breath. Patient denies nausea vomiting or diarrhea. Patient denies any urinary burning or frequency. On 12/12/2018 patient is alert and oriented 3. Patient has been moved out of [facility] intensive care unit. Lasix have been increased per pulmonary continue lateral pleural effusion. We'll continue to monitor. At this time patient denies any chest pain or shortness breath. Patient denies nausea vomiting or diarrhea. Patient denies any urinary burning or frequency Objective - Vital Signs Vital signs: Vital Signs Temp 98.6 F 12/12/18 08:35 Pulse 80 12/12/18 11:11 Resp 18 12/12/18 08:35 BP 154/71 12/12/18 08:35 Pulse Ox 95 12/12/18 08:35 Intake & Output 12/11/18 12/12/18 12/12/18 18:59 06:59 18:59 Intake Total 1210 520 378 Output Total 1585 626 3607 Balance -225 -230 -872 Weight 67 kg 62 kg Intake: Intake, IV Titration 610 250 Amount Anidulafungin 200 mg In 260 Sodium Chloride 0.9% 200 ml @ 84 mls/hr IVPB ONCE ONE Rx#:[id number] Sodium Chloride 0.45% 1, 300 250 000 ml @ 25 mls/hr IV . Q24H [facility] Rx#:[id number] cefTRIAXone 2 gm In 50 Sodium Chloride 0.9% 50 ml @ 100 mls/hr IVPB Q24HR [facility] Rx#:[id number] Oral 378 Tube Feeding 540 270 Other 60 Output: Urine 3407 584 1331 Other: Voiding Method Indwelling Catheter Indwelling Catheter # Bowel Movements 1 - Exam Head normocephalic Neck supple. Tracheostomy in place. Trach collar with shield Lungs diminished with bilateral rhonchi. Heart regular rate and rhythm S1-S2, no rub or gallop Abdomen is soft nontender nondistended positive bowel sounds no hepatosplenomegaly. PEG tube in place Extremities no edema Neuro follows commands. On mechanical ventilation - Labs CBC & Chem 7: 12/12/18 06:12 12/12/18 06:12 Labs: Abnormal Lab Results - Last 24 Hours (Table) 12/11/18 12/11/18 12/12/18 Range/Units 20:33 23:58 06:03 WBC (3.8-10.6) k/uL RBC (3.80-5.40) m/uL Hgb (11.4-16.0) gm/dL Hct (34.0-46.0) % MCHC (31.0-37.0) g/dL RDW (11.5-15.5) % Carbon Dioxide (22-30) mmol/L BUN (7-17) mg/dL Glucose (74-99) mg/dL POC Glucose (mg/dL) 236 H 191 H 214 H (75-99) mg/dL 12/12/18 12/12/18 12/12/18 Range/Units 06:12 06:12 11:48 WBC 18.0 H (3.8-10.6) k/uL RBC 3.31 L (3.80-5.40) m/uL Hgb 9.9 L (11.4-16.0) gm/dL Hct 32.7 L (34.0-46.0) % MCHC 30.2 L (31.0-37.0) g/dL RDW 17.5 H (11.5-15.5) % Carbon Dioxide 37 H (22-30) mmol/L BUN 33 H (7-17) mg/dL Glucose 198 H (74-99) mg/dL POC Glucose (mg/dL) 156 H (75-99) mg/dL Assessment and Plan Assessment: 1. Sepsis present on admission related to pneumonia. Chest x-ray completed showing right lower lobe consolidation. Bilateral pleural effusions. Patient admitted to the intensive care unit. Initial lactic acid 2.1. Blood urine and sputum cultures have been ordered. White blood cell 16.4. Infectious disease following. Patient on cefepime and Vanco. Sputum culture currently growing Streptococcus pneumoniae. Repeat chest x-ray completed showing suspected sickle cell congestive heart failure mild pulmonary vascular congestion stable [id number] pleural effusions or airspace disease. Likely atelectasis m ultifocal pneumonia and parapneumonic effusions are an alernative consideration. Sputum culture growing Streptococcus pneumoniae. Antibiotics adjusted to Rocephin per infectious disease. Patient taken off mechanical ventilation and placed on trach collar. Antibiotics adjusted to Eraxis and Rocephin per pulmonary 2. Hypotension related to above. Patient maintained on Levophed. Resolved 3. History of non-small cell lung stage III adenocarcinoma 4. History of recent prolonged hospital admission in which she was transferred to [facility]. Patient was on mechanical ventilation for prolonged time requiring tracheostomy 5. Acute on chronic respiratory failure. 6. History of COPD 7. History of CVA 8. History of osteoarthritis 9. History of hyperlipidemia 10. History of fibromyalgia 11. History of depression 12. Ex-smoker. Patient is smoking history of half-pack per day for 30 years 13. Bilateral lower extremity neuropathy. Patient started on Lyrica 14. Small pleural effusion. Pulmonary has increased Lasix 40 mg every 12 hours. Repeat chest x-ray has been ordered DVT prophylaxis heparin. GI prophylaxis Protonix Physical therapy and social security specialist consulted for discharge planning I performed an examination of the patient and discussed their management with the Nurse Practitioner. I have reviewed the Nurse Practitioner's notes and agree with the documented findings and plan of care
[2018-12-12] MEDS: ANIDULAFUNGIN 100 MG in SODIUM CHLORIDE 0.9% 100 ML IVPB SCH (16:20)
[2018-12-12 16:47] LABS: Glucose,Whole Blood 253 mg/dL (75-99); Glucose,Whole Blood 316 mg/dL (75-99)
--- NOTE | 2018-12-12 17:48 | PN ---
PROGRESS NOTE DATE OF SERVICE: 12/12/2018. REASON FOR FOLLOWUP: 1. Strep pneumo pneumoniae. 2. Oropharyngeal candidiasis. INTERVAL HISTORY: The patient is currently afebrile. The patient has been breathing comfortably. The patient denies having any chest pain. Occasional cough. No abdominal pain. No nausea, vomiting, or any diarrhea. PHYSICAL EXAMINATION: Blood pressure is 154/71 with a pulse of 84, temperature 98.6. He is 95% on room air. General description is an elderly female, lying in bed in no distress. Respiratory system: Unlabored breathing. Clear to auscultation anteriorly. Heart S1, S2. Regular rate and rhythm. Abdomen soft. No tenderness. LABS: Hemoglobin 9.1, white count 62436, BUN of 33, creatinine 0.62. DIAGNOSTIC IMPRESSION AND PLAN: 1. Patient with strep pneumo pneumoniae for which the patient currently covered with Rocephin. Transition to oral Ceftin on discharge. 2. The patient with elevated white count, likely component of steroid effect plus- minus oropharyngeal candidiasis for which the patient currently covered with . However, white count still elevated despite being on more likely indicating steroid effect as currently no other clinical focus of infection. 3. Monitor clinical course closely. Continue supportive care. MMODL / IJN: [id number] /
[2018-12-13 00:16] LABS: Glucose,Whole Blood 228 mg/dL (75-99)
[2018-12-13] MEDS: INSULIN ASPART (NovoLOG) 100 UNIT/ML VIAL SQ SCH ×3 (00:18→13:08)
[2018-12-13] MEDS: IPRATROPIUM-ALBUTEROL 3 ML NEB INHALATION SCH ×4 (03:37→15:35)
[2018-12-13] MEDS: LACTULOSE 20 GM/30 ML CUP PO PRN (05:47)
[2018-12-13] MEDS: LEVOTHYROXINE 50 MCG TAB PO SCH (05:47)
[2018-12-13] MEDS: hydrALAZINE HCL 25 MG TAB PO SCH ×2 (05:47→15:09)
[2018-12-13 05:55] LABS: Glucose,Whole Blood 158 mg/dL (75-99)
[2018-12-13] MEDS: PANTOPRAZOLE 40 MG TABLET PO SCH (05:55)
[2018-12-13 06:56] LABS: Anion Gap 4 mmol/L; Blood Urea Nitrogen 37 mg/dL (7-17); Calcium 9.4 mg/dL (8.4-10.2); Carbon Dioxide 36 mmol/L (22-30); Chloride 99 mmol/L (98-107); Glucose 172 mg/dL (74-99); Potassium 4.7 mmol/L (3.5-5.1); Sodium 139 mmol/L (137-145)
[2018-12-13 07:07] LABS: Anisocytosis Slight; HGB 10.1 gm/dL (11.4-16.0); Hypochromasia Slight; MCH 28.7 pg (25.0-35.0); MCHC 29.7 g/dL (31.0-37.0); MCV 96.6 fL (80.0-100.0); Macrocytosis Slight; Platelet Count 479 k/uL (150-450); RBC 3.52 m/uL (3.80-5.40); RDW 17.1 % (11.5-15.5); WBC 16.6 k/uL (3.8-10.6)
[2018-12-13] MEDS: FORMOTEROL FUMARATE 20 MCG/2 ML NEBU INHALATION SCH (07:29)
[2018-12-13] MEDS: BUDESONIDE 1 MG/2 ML NEBU INHALATION SCH (07:29)
--- NOTE | 2018-12-13 08:11 | XR ---
EXAMINATION TYPE: XR chest 1V portable DATE OF EXAM: 12/13/2018 COMPARISON: 12/12/2018 INDICATION: Short of breath TECHNIQUE: Single frontal view of the chest is obtained. FINDINGS: The heart size is normal. The pulmonary vasculature is normal. Tracheostomy tube is in the midline right a consolidation is at the right base. This may have slight improvement. Small right and minimal left pleural effusions remain present. IMPRESSION: 1. Improving right lower lobe consolidation. 2. Small bilateral pleural effusions
[2018-12-13] MEDS: LISINOPRIL 10 MG TAB PO SCH (08:17)
[2018-12-13] MEDS: oxyCODONE ER 10 MG TAB.ER.12H PO SCH (08:18)
[2018-12-13] MEDS: SENNOSIDES-DOCUSATE SODIUM 1 EACH TAB PO SCH (08:18)
[2018-12-13] MEDS: QUEtiapine 50 MG TAB PO SCH (08:18)
[2018-12-13] MEDS: AMIODARONE 200 MG TAB PO SCH (08:18)
[2018-12-13] MEDS: PREGABALIN 50 MG CAP PO SCH (08:19)
[2018-12-13] MEDS: HEPARIN SODIUM,PORCINE 5,000 UNIT/ML 1 ML VIAL SQ SCH ×2 (08:19→17:18)
[2018-12-13] MEDS: methylPREDNISolone SOD SUCCI 40 MG/ML 1 ML VIAL IV SCH ×2 (08:19→17:18)
[2018-12-13] MEDS: FUROSEMIDE 10 MG/ML 4 ML VIAL IV SCH (08:20)
[2018-12-13] MEDS: CHLORHEXIDINE GLUCONATE 15 ML CUP MUCOUS MEM SCH (08:20)
[2018-12-13] MEDS: SODIUM CHLORIDE 0.45% 1,000 ML IV SCH (11:11)
[2018-12-13 12:06] LABS: Glucose,Whole Blood 139 mg/dL (75-99)
--- NOTE | 2018-12-13 12:36 | P.PN ---
Subjective Progress Note Date: 12/13/18 Principal diagnosis: Acute sepsis, septic shock, bilateral pneumonia with sepsis. The patient is seen today 12/13/2018 in follow-up on the selective care unit. Awake and alert in no acute distress. Resting comfortably in bed. Denies any worsening shortness of breath, cough or congestion. Maintaining good O2 saturations in the 90s on 35% trach collar. Sputum cultures positive for Streptococcus pneumoniae. Remains on ceftriaxone. Continue DuoNeb inhalations along with Perforomist and Pulmicort inhalations. Currently on IV diuretics. Remains in a negative balance. White count 16.6. Hemoglobin 10.1. Creatinine 0.69. Objective - Vital Signs Vital signs: Vital Signs Temp 97.8 F 12/13/18 03:45 Pulse 76 12/13/18 11:12 Resp 14 12/12/18 23:07 BP 158/76 12/13/18 03:45 Pulse Ox 99 12/13/18 03:45 Intake & Output 12/12/18 12/13/18 12/13/18 18:59 06:59 18:59 Intake Total 528 610 240 Output Total 1250 2200 1450 Balance -722 -1590 -1210 Weight 62 kg Intake: Intake, IV Titration 250 Amount Anidulafungin 100 mg In 100 Sodium Chloride 0.9% 100 ml @ 84 mls/hr IVPB Q24H [facility] Rx#:[id number] Sodium Chloride 0.45% 1, 150 000 ml @ 25 mls/hr IV . Q24H [facility] Rx#:[id number] Oral 528 240 Tube Feeding 360 Output: Urine 1250 2200 1450 Other: Voiding Method Indwelling Catheter Indwelling Catheter Indwelling Catheter # Bowel Movements 1 0 - Exam GENERAL EXAM: Alert, active, comfortable in no apparent distress. On 35% trach collar. HEAD: Normocephalic. EYES: Normal reaction of pupils, equal size. NOSE: Clear with pink turbinates. THROAT: The cast me tube in place. No erythema or exudates. NECK: No masses, no JVD. CHEST: No chest wall deformity. LUNGS: Equal air entry with pickles in the bilateral posterior bases. CVS: S1 and S2 normal with no audible murmur, regular rhythm. ABDOMEN: PEG tube exit site clean and dry. No hepatosplenomegaly, normal bowel sounds, no guarding or rigidity. SPINE: No scoliosis or deformity SKIN: No rashes CENTRAL NERVOUS SYSTEM: No focal deficits, tone is normal in all 4 extremities. EXTREMITIES: There is 1-2+ peripheral edema. No clubbing, no cyanosis. Peripheral pulses are intact. - Labs CBC & Chem 7: 12/13/18 06:07 12/13/18 06:07 Labs: Abnormal Lab Results - Last 24 Hours (Table) 12/12/18 12/12/18 12/13/18 Range/Units 16:44 16:44 00:13 WBC (3.8-10.6) k/uL RBC (3.80-5.40) m/uL Hgb (11.4-16.0) gm/dL MCHC (31.0-37.0) g/dL RDW (11.5-15.5) % Plt Count (150-450) k/uL Carbon Dioxide (22-30) mmol/L BUN (7-17) mg/dL Glucose (74-99) mg/dL POC Glucose (mg/dL) 316 H 253 H 228 H (75-99) mg/dL 12/13/18 12/13/18 12/13/18 Range/Units 05:51 06:07 06:07 WBC 16.6 H (3.8-10.6) k/uL RBC 3.52 L (3.80-5.40) m/uL Hgb 10.1 L (11.4-16.0) gm/dL MCHC 29.7 L (31.0-37.0) g/dL RDW 17.1 H (11.5-15.5) % Plt Count 479 H (150-450) k/uL Carbon Dioxide 36 H (22-30) mmol/L BUN 37 H (7-17) mg/dL Glucose 172 H (74-99) mg/dL POC Glucose (mg/dL) 158 H (75-99) mg/dL 12/13/18 Range/Units 12:03 WBC (3.8-10.6) k/uL RBC (3.80-5.40) m/uL Hgb (11.4-16.0) gm/dL MCHC (31.0-37.0) g/dL RDW (11.5-15.5) % Plt Count (150-450) k/uL Carbon Dioxide (22-30) mmol/L BUN (7-17) mg/dL Glucose (74-99) mg/dL POC Glucose (mg/dL) 139 H (75-99) mg/dL Assessment and Plan Assessment: Impression: 1 acute on chronic hypoxic respiratory failure secondary to bilateral pneumonia secondary to Streptococcus pneumonia as documented from the sputum culture. 2 acute sepsis and septic shock secondary to pneumonia patient required fluid boluses and pressors. Recovered, hemodynamically stable 3 stage IV non-small cell lung cancer post-chemoradiation therapy and was on immunotherapy. 4 severe COPD with acute exacerbation 5 hypertension 6 chronic back pain and fibromyalgia and arthritis 7 history of depression 8 history of recent prolonged course of mechanical ventilation in September of 2018 requiring tracheostomy and PEG tube placement 9 small bilateral pleural effusions, etiology is not clear, I believe the effusions could be parapneumonic. Although the possibility of malignant pleural effusions not entirely ruled out. Recommendation: The patient was seen and evaluated by Dr. Fan. Chest x-ray and labs were reviewed. Improved right lower lobe consolidation, small bilateral pleural effusions continue. Continue her current treatment plan with bronchodilators, IV Solu medrol, antibiotics. We will continue to follow and make further recommendations based on her clinical status. Discharge planning is in place. I, the cosigning physician, performed a history & physical examination of the patient. Lungs sounds with crackles in the bilateral posterior bases. Maintaining good O2 saturations in the 90s on 35% FiO2 via trach collar. I discussed the assessment and plan of care with my nurse practitioner, Rosie Fay. I attest to the above note as dictated by her.
[2018-12-13] MEDS: LORazepam 0.5 MG TAB PO PRN (13:49)
[2018-12-13 13:58] VITALS: BMI 27.6
[2018-12-13 14:09] VITALS: BP 146/80; TEMP 98
--- NOTE | 2018-12-13 15:13 | P.DS ---
Providers Date of admission: 12/03/18 04:53 Expected date of discharge: 12/13/18 Attending physician: Glenys Chang Consults: 12/03/18 04:53 Consult Physician Stat Consulting Provider: Gaetano Robert Consult Reason/Comments: ICU management Do you want consulting provider notified?: Already Contacted 12/03/18 12:10 Consult Physician Routine Consulting Provider: Rosana Swan Consult Reason/Comments: Sepsis pneumonia Do you want consulting provider notified?: Yes Primary care physician: Grey Hernandez Hospital Course: Discharge diagnosis 1. Sepsis present on admission related to pneumonia. Chest x-ray completed showing right lower lobe consolidation. Bilateral pleural effusions. Patient admitted to the intensive care unit. Initial lactic acid 2.1. Blood urine and sputum cultures have been ordered. White blood cell 16.4. Infectious disease following. Patient on cefepime and Vanco. Sputum culture currently growing Streptococcus pneumoniae. Repeat chest x-ray completed showing suspected sickle cell congestive heart failure mild pulmonary vascular congestion stable [id number] pleural effusions or airspace disease. Likely atelectasis multifocal pneumonia and parapneumonic effusions are an alernative consideration. Sputum culture growing Streptococcus pneumoniae. Antibiotics adjusted to Rocephin per infectious disease. Patient taken off mechanical ventilation and placed on trach collar. Antibiotics adjusted to Eraxis and Rocephin per pulmonary. Discussed with pulmonary services patient has been cleared for discharge. Also discussed with infectious disease. Patient has been cleared for discharge. He'll be DC'd on Ceftin and nystatin 2. Hypotension related to above. Patient maintained on Levophed. Resolved 3. History of non-small cell lung stage III adenocarcinoma 4. History of recent prolonged hospital admission in which she was transferred to [facility]. Patient was on mechanical ventilation for prolonged time requiring tracheostomy 5. Acute on chronic respiratory failure. 6. History of COPD 7. History of CVA 8. History of osteoarthritis 9. History of hyperlipidemia 10. History of fibromyalgia 11. History of depression 12. Ex-smoker. Patient is smoking history of half-pack per day for 30 years 13. Bilateral lower extremity neuropathy. Patient started on Lyrica 14. Small pleural effusion. Pulmonary has increased Lasix 40 mg every 12 hours. Patient resumed on home Lasix dose. Cleared for discharge from pulmonary standpoint Hospital course This is a 63-year-old female patient who presented to the hospital with worsening shortness of breath. Patient has a past medical history of recent hospital admission in which she was admitted to [facility] hearing transferred to [facility] which required prolonged intubation and tracheostomy. Patient was recently discharged to [facility] D/C to [facility]1 week ago. Patient has had increased sputum production and cough. Patient has past medical history of non- small cell lung cancer stage III, CVA, COPD, GERD, hyperlipidemia, osteoarthritis,chronic back pain and depression. Chest x-ray completed in ER showing right lower lobe consolidation with bilateral pleural effusions. Patient's WBC elevated at 10.9. Patient also have a lactic acid of 2.1. UA negative. Patient's blood pressure low. Patient started on Levophed and transferred to the ICU. Dr. Jackson has been consulted for critical care. Patient started on vancomycin and Zosyn for antibiotic. Blood urine and sputum cultures ordered. At this time patient is on mechanical ventilation resting comfortably in bed. Patient is following commands. On 12/04/2018 patient maintained on mechanical ventilation but awake and alert. Patient remains in intensive care unit on Levophed for pressure support. Patient reports that she feels better. Patient currently on vancomycin and Maxipime for antibiotics. Infectious disease and pulmonary services are viky jennings. White Blood cell 16.7. Blood,urine and sputum cultures pending On 12/05/2018 patient rates on mechanical ventilation but awake and alert following commands. patient reports that she feels overall improved. white blood cell improving to 13.6. At this time patient denies chest pain or shortness breath. Patient denies nausea vomiting diarrhea denies any urinary burning or frequency 12/06/2018 patient is alert and awake following commands. Patient remains on mechanical ventilation. Patient has been off pressure support medication for 24 hours. Infectious disease and pulmonary following. At this time patient denies chest pain or shortness breath. Patient denies nausea vomiting or diarrhea. Patient denies any urinary burning or frequency. On 12/07/2018 patient is awake alert and awake following commands. Patient has been taken off mechanical ventilation placed on trach mask. Patient remains in the intensive care unit but showing improvement. Patient has been off pressure support medication for over 48 hours. Infectious disease and pulmonary are following. Antibiotics adjusted per ID. At this time patient denies chest pain or shortness of breath. Patient denies nausea vomiting or diarrhea. Patient denies any urinary burning or frequency On 12/08/2018 patient is awake alert and awake following commands. Patient is back on mechanical ventilation she was also started on IV Solu-Medrol. Patient remains in the intensive care unit but showing improvement. She denies any pain or discomfort at this time, lab results were reviewed potassium is a bit low at 3.3, hemoglobin is 8.5 Otherwise labs are unremarkable. On 12/09/2018 patient was seen and examined in the ICU she is alert and oriented 3 she is off the ventilator at this time and is maintained on tracheostomy shield with high flow oxygen, there is no fever or chills no headache or dizziness no chest pain she has occasional cough no nausea or vomiting no abdominal pain no diarrhea and no urinary symptoms On 12/10/2018 patient alert and oriented to 3. Patient remains on trach collar. Patient is showing improvement. At this time patient denies any chest pain or shortness breath. Patient denies nausea vomiting or diarrhea. Patient denies any urinary burning or frequency. On 12/11/2018 patient is alert and oriented 3. Patient is continuing to show improvement. White blood cell increasing blood per infectious disease likely reactive from steroids. Patient remains on Rocephin. Continue physical therapy. At this time patient denies chest pain or shortness of breath. Patient denies nausea vomiting or diarrhea. Patient denies any urinary burning or frequency. On 12/12/2018 patient is alert and oriented 3. Patient has been moved out of the intensive care unit. Lasix have been increased per pulmonary continue lateral pleural effusion. We'll continue to monitor. At this time patient denies any chest pain or shortness breath. Patient denies nausea vomiting or diarrhea. Patient denies any urinary burning or frequency On 12/13/2018 patient has been cleared for discharge from pulmonary and infectious disease. Patient alert and oriented 3. Patient feels ready to be discharged back to [facility]. Patient will be DC'd on Ceftin and nystatin per ID recommendation. White blood cell remains elevated but trending down. At this time patient denies chest pain or shortness of breath. Patient denies nausea vomiting or diarrhea. Patient denies any urinary burning or frequency I performed an examination of the patient and discussed their management with the Nurse Practitioner. I have reviewed the Nurse Practitioner's notes and agree with the documented findings and plan of care Patient Condition at Discharge: Stable Plan - Discharge Summary Discharge Rx Participant: Yes New Discharge Prescriptions: New Cefuroxime Axetil [Ceftin] 500 mg PO BID 7 Days #14 tab Pregabalin [Lyrica] 50 mg PO BID #0 cap Nystatin 100,000 unit PO QID 7 Days #7 oral.susp Continue Furosemide [Lasix] 40 mg PO DAILY@0900 Levothyroxine Sodium [Synthroid] 25 mcg PO DAILY@1100 Ondansetron [Zofran ODT] 4 mg PO Q6H PRN PRN Reason: Nausea And Vomiting Simethicone 80 mg PO DAILY PRN PRN Reason: GAS Polyethylene Glycol 3350 [Miralax] 17 gm PO DAILY PRN PRN Reason: Constipation Lactulose 20 gm PO Q8H PRN PRN Reason: Constipation Acetaminophen [Tylenol Arthritis] 650 mg PO Q6H PRN PRN Reason: Pain Levalbuterol Nebulized [Xopenex Nebulized] 1.25 mg INHALATION RT-Q6H hydrALAZINE HCL 25 mg PO TID@0600,1400,2200 Sennosides/Docusate Sodium [Senna-S Laxative Tablet] 2 tab PO BID@0900,2100 QUEtiapine FUMARATE 50 mg PO BID@0900,2100 Budesonide [Pulmicort] 1 mg INHALATION RT-BID@0900,2100 Chlorhexidine Gluconate [Periogard] 15 ml PO BID@0900,2100 Amiodarone [Cordarone] 200 mg PO DAILY@0900 Lisinopril [Zestril] 10 mg PO DAILY@0900 Pantoprazole Sodium [Protonix] 40 mg PO DAILY@0600 Levothyroxine Sodium [Synthroid] 50 mcg PO DAILY@0600 LORazepam [Ativan] 0.5 mg PO Q6H PRN 14 Days #56 tab PRN Reason: Anxiety oxyCODONE HCL [oxyCODONE HCL (IR)] 10 mg PO Q4H PRN 14 Days #54 tablet PRN Reason: Pain oxyCODONE ER [OxyCONTIN] 10 mg PO BID@0900,2100 14 Days #28 tab.er.12h Discharge Medication List Furosemide [Lasix] 40 mg PO DAILY@0900 09/13/18 [History] Levothyroxine Sodium [Synthroid] 25 mcg PO DAILY@1100 09/13/18 [History] Acetaminophen [Tylenol Arthritis] 650 mg PO Q6H PRN 12/02/18 [History] Amiodarone [Cordarone] 200 mg PO DAILY@89912/02/18 [History] Budesonide [Pulmicort] 1 mg INHALATION RT-BID@899,209912/02/18 [History] Chlorhexidine Gluconate [Periogard] 15 ml PO BID@0900,209912/02/18 [History] Lactulose 20 gm PO Q8H PRN 12/02/18 [History] Levalbuterol Nebulized [Xopenex Nebulized] 1.25 mg INHALATION RT-Q6H 12/02/18 [History] Levothyroxine Sodium [Synthroid] 50 mcg PO DAILY@0612/02/18 [History] Lisinopril [Zestril] 10 mg PO DAILY@0912/02/18 [History] Ondansetron [Zofran ODT] 4 mg PO Q6H PRN 12/02/18 [History] Pantoprazole Sodium [Protonix] 40 mg PO DAILY@59912/02/18 [History] Polyethylene Glycol 3350 [Miralax] 17 gm PO DAILY PRN 12/02/18 [History] QUEtiapine FUMARATE 50 mg PO BID@0900,209912/02/18 [History] Sennosides/Docusate Sodium [Senna-S Laxative Tablet] 2 tab PO BID@0900,209912/02/18 [History] Simethicone 80 mg PO DAILY PRN 12/02/18 [History] hydrALAZINE HCL 25 mg PO TID@0600,1400,2200 12/02/18 [History] Cefuroxime Axetil [Ceftin] 500 mg PO BID 7 Days #14 tab 12/13/18 [Rx] LORazepam [Ativan] 0.5 mg PO Q6H PRN 14 Days #56 tab 12/13/18 [Rx] Nystatin 100,000 unit PO QID 7 Days #7 oral.susp 12/13/18 [Rx] Pregabalin [Lyrica] 50 mg PO BID #0 cap 12/13/18 [Rx] oxyCODONE ER [OxyCONTIN] 10 mg PO BID@00,2099 14 Days #28 tab.er.12h 12/13/18 [Rx] oxyCODONE HCL [oxyCODONE HCL (IR)] 10 mg PO Q4H PRN 14 Days #54 tablet 12/13/18 [Rx] Follow up Appointment(s)/Referral(s): Grey Hernandez MD [Primary Care Provider] - 1-2 days Chano Fan DO [Doctor of Osteopathic Medicine] - 1 Week Activity/Diet/Wound Care/Special Instructions: [facility] CBC, CMP and TSH level first lab draw at [facility] Discharge Disposition: TRANSFER TO SNF/ECF
[2018-12-13 15:37] VITALS: RESP 20
[2018-12-13 15:45] VITALS: PULSE 74
[2018-12-13] MEDS: ANIDULAFUNGIN 100 MG in SODIUM CHLORIDE 0.9% 100 ML IVPB SCH (15:51)
--- NOTE | 2018-12-13 17:25 | PN ---
PROGRESS NOTE DATE OF SERVICE: 12/13/2018. REASON FOR FOLLOWUP: 1. Strep pneumo pneumonia. 2. Oropharyngeal candidiasis. INTERVAL HISTORY: The patient is currently afebrile. Patient has been breathing comfortably. Denies having any chest pain. Occasional cough. No nausea, vomiting. Has been tolerating her diet. No choking on food. No abdominal pain. No diarrhea. PHYSICAL EXAMINATION: Blood pressure is 158/76, pulse of 78, temperature 97.8. She is 99% on trach collar. General description is an elderly female lying in bed in no distress. Respiratory system: Unlabored breathing, clear to auscultation anteriorly. HEART S1, S2. Regular rate and rhythm. ABDOMEN: Soft, no tenderness. LABS: Hemoglobin is 10.1 with a white count of 16.6, BUN of 37, creatinine 2.69. DIAGNOSTIC IMPRESSION AND PLAN: 1. Patient with Strep pneumo pneumoniae. Patient has seem to shown clinical improvement. Has received more than a week of IV antibiotic. She will be given another week of oral Ceftin to finish a course of therapy. 2. Patient with oropharyngeal candidiasis and inability to use Diflucan because of interaction with her medication. We will give nystatin swish and swallow and monitor clinical course closely outpatient. 3. Continue supportive care. MMODL / IJN: [id number] /
== END 2018-12-13 17:53 | DRG 870 ==
LOC: EC 21:48 → 2SICU 12-03 04:53 → 3SCARD 12-11 22:03
PROVIDERS: ADMIT Internal Medicine; ATTEND Internal Medicine
PROC: 5A1955Z Respiratory Ventilation, Greater than 96 Consecutive Hours (ICD-10-PCS; principal; 2018-12-03)
PROC: 06HM33Z Insertion of Infusion Device into Right Femoral Vein, Percutaneous Approach (ICD-10-PCS; 2018-12-03)
DX: A40.3 Sepsis due to Streptococcus pneumoniae (principal); J13 Pneumonia due to Streptococcus pneumoniae; R65.21 Severe sepsis with septic shock; J96.21 Acute and chronic respiratory failure with hypoxia; J90 Pleural effusion, not elsewhere classified; C34.12 Malignant neoplasm of upper lobe, left bronchus or lung; J98.11 Atelectasis; J44.0 Chronic obstructive pulmonary disease with (acute) lower respiratory infection; J44.1 Chronic obstructive pulmonary disease with (acute) exacerbation; B37.0 Candidal stomatitis; Z93.0 Tracheostomy status; E87.70 Fluid overload, unspecified; Y95 Nosocomial condition; G57.93 Unspecified mononeuropathy of bilateral lower limbs; E27.9 Disorder of adrenal gland, unspecified; K59.09 Other constipation; I10 Essential (primary) hypertension; G89.29 Other chronic pain; M54.9 Dorsalgia, unspecified; F32.9 Major depressive disorder, single episode, unspecified; M79.7 Fibromyalgia; E03.9 Hypothyroidism, unspecified; K21.9 Gastro-esophageal reflux disease without esophagitis; K44.9 Diaphragmatic hernia without obstruction or gangrene; E78.5 Hyperlipidemia, unspecified; M19.90 Unspecified osteoarthritis, unspecified site; Z99.81 Dependence on supplemental oxygen; Z79.890 Hormone replacement therapy; Z79.891 Long term (current) use of opiate analgesic; Z79.51 Long term (current) use of inhaled steroids; Z79.899 Other long term (current) drug therapy; Z87.01 Personal history of pneumonia (recurrent); Z87.891 Personal history of nicotine dependence; Z93.1 Gastrostomy status; Z92.3 Personal history of irradiation; Z92.21 Personal history of antineoplastic chemotherapy; Z86.73 Personal history of transient ischemic attack (TIA), and cerebral infarction without residual deficits; Z98.890 Other specified postprocedural states; Z80.9 Family history of malignant neoplasm, unspecified
CPT/HCPCS: 36415; 36556; 36600; 71045; 76604; 80048; 80053; 80202; 81003; 82805; 83036; 83605; 83735; 84100; 84132; 84484; 85025; 85027; 85610; 85730; 87040; 87070; 87077; 87086; 87186; 87205; 93005; 94002; 94003; 94640; 94760; 96361; 96365; 96366; 96367; 96375; 96376; 99291

== ENCOUNTER 2018-12-15 22:23 | Emergency (ER) | payer MEDICARE, OTHER ==
--- NOTE | 2018-12-15 23:23 | XR ---
EXAM: XR Chest, 2 Views CLINICAL HISTORY: ITS.REASON XR Reason: MARIANNA, trached - MARIANNA resolved after suctioning TECHNIQUE: Frontal and lateral views of the chest. COMPARISON: No relevant prior studies available. FINDINGS: Lungs: Right lower lobe consolidation is nonspecific. Pleural space: Bilateral pleural effusions. No pneumothorax. Heart: No suspicious enlargement. Mediastinum: Unremarkable. Bones/joints: No acute fracture. IMPRESSION: 1. Bilateral pleural effusions. 2. Right lower lobe consolidation is nonspecific.
[2018-12-15 23:55] LABS: ALT 28 U/L (9-52); AST 31 U/L (14-36); African American GFR (CKD) >90 (>60 ml/min/1.73 sqM); Albumin 3.3 g/dL (3.5-5.0); Alkaline Phosphatase 97 U/L (38-126); Anion Gap 1 mmol/L; Blood Urea Nitrogen 30 mg/dL (7-17); Calcium 8.7 mg/dL (8.4-10.2); Carbon Dioxide 40 mmol/L (22-30); Chloride 97 mmol/L (98-107); Glucose 159 mg/dL (74-99); Sodium 138 mmol/L (137-145); Total Bilirubin 0.6 mg/dL (0.2-1.3); Total Protein 6.3 g/dL (6.3-8.2)
[2018-12-15 23:58] LABS: Anisocytosis Slight; Basophils % (A) 0 %; Eosinophils # (A) 0.1 k/uL (0-0.7); Eosinophils % (A) 1 %; HCT 39.8 % (34.0-46.0); HGB 12.4 gm/dL (11.4-16.0); Hypochromasia Slight; Lymphocytes % (A) 8 %; MCH 30.3 pg (25.0-35.0); MCHC 31.2 g/dL (31.0-37.0); MCV 97.1 fL (80.0-100.0); Macrocytosis Slight; Mean Platelet Volume 7.5; Monocytes # (A) 0.4 k/uL (0-1.0); Monocytes % (A) 3 %; Neutrophils # (A) 11.3 k/uL (1.3-7.7); Neutrophils % (A) 88 %; Platelet Count 409 k/uL (150-450); RDW 18.2 % (11.5-15.5); WBC 12.8 k/uL (3.8-10.6)
[2018-12-16 00:02] LABS: Potassium 4.5 mmol/L (3.5-5.1)
--- NOTE | 2018-12-16 00:04 | ED ---
SOB HPI - General Chief Complaint: Shortness of Breath Stated Complaint: MARIANNA Time Seen by Provider: 12/15/18 22:50 Source: patient Mode of arrival: EMS - History of Present Illness Initial Comments: Virgen is a pleasant 63-year-old female with known colon cancer who has a trach in place due to prolonged intubation previously. Patient was recently admitted to our hospital for septic shock at which time she was on the ventilator. She spent the past 2 days at [facility]. She reports that for the [facility] no baby had been able to suction her trachea today she began having difficulty breathing. EMS and arrived on scene they suctioned her trach and she had immediate resolution of her discomfort. Her heart rate improved her oxygen saturation saturations remained in the high 90s on trach collar and upon arrival emergency permission no further complaints. - Related Data Home Medications Medication Instructions Recorded Confirmed Furosemide [Lasix] 40 mg PO DAILY@89909/13/18 12/15/18 Acetaminophen [Tylenol Arthritis] 650 mg PO Q6H PRN 12/02/18 12/15/18 Amiodarone [Cordarone] 200 mg PO DAILY@89912/02/18 12/15/18 Budesonide [Pulmicort] 1 mg INHALATION RT-BID@09,209912/02/18 12/15/18 Chlorhexidine Gluconate [Periogard] 15 ml PO BID@0900,209912/02/18 12/15/18 Lactulose 20 gm PO Q8H PRN 12/02/18 12/15/18 Levalbuterol Nebulized [Xopenex 1.25 mg INHALATION RT-Q6H 12/02/18 12/15/18 Nebulized] Levothyroxine Sodium [Synthroid] 50 mcg PO DAILY@59912/02/18 12/15/18 Lisinopril [Zestril] 10 mg PO DAILY@89912/02/18 12/15/18 Ondansetron [Zofran ODT] 4 mg PO Q6H PRN 12/02/18 12/15/18 Pantoprazole Sodium [Protonix] 40 mg PO DAILY@59912/02/18 12/15/18 Polyethylene Glycol 3350 [Miralax] 17 gm PO DAILY PRN 12/02/18 12/15/18 QUEtiapine FUMARATE 50 mg PO BID@0900,2100 12/02/18 12/15/18 Sennosides/Docusate Sodium 2 tab PO BID@0900,2100 12/02/18 12/15/18 [Senna-S Laxative Tablet] Simethicone 80 mg PO DAILY PRN 12/02/18 12/15/18 hydrALAZINE HCL 25 mg PO TID@0600,1400,2200 12/02/18 12/15/18 Nystatin 500,000 unit PO QID 12/15/18 12/15/18 Previous Rx's Medication Instructions Recorded Cefuroxime Axetil [Ceftin] 500 mg PO BID 7 Days #14 tab 12/13/18 LORazepam [Ativan] 0.5 mg PO Q6H PRN 14 Days #56 tab 12/13/18 Pregabalin [Lyrica] 50 mg PO BID #0 cap 12/13/18 oxyCODONE ER [OxyCONTIN] 10 mg PO BID@0900,2100 14 Days #28 12/13/18 tab.er.12h oxyCODONE HCL [oxyCODONE HCL (IR)] 10 mg PO Q4H PRN 14 Days #54 tablet 12/13/18 Allergies Allergy/AdvReac Type Severity Reaction Status Date / Time No Known Allergies Allergy Verified 12/15/18 23:24 Review of Systems ROS Statement: Those systems with pertinent positive or pertinent negative responses have been documented in the HPI. ROS Other: All systems not noted in ROS Statement are negative. Past Medical History Past Medical History: Atrial Fibrillation, Cancer, COPD, CVA/TIA, Fibromyalgia, GERD/Reflux, Hyperlipidemia, Osteoarthritis (OA), Pneumonia, Thyroid Disorder Additional Past Medical History / Comment(s): Non-small cell lung cancer stage 3 adenocarcinoma, COPD, fibromyalgia, acid reflux, hyperlipidemia, osteoarthritis, adrenal mass that has remained stable over some time, TIA history of, hiatal hernia, chronic constipation, chronic back pain (2 herniated discs, 3 disc fractures), degenerative arthritis, hiatal hernia; hypothyroidism started after chemo; Last Chemo 06/2017 then had immunotherapy for 1 year; first instance of AFib was at [facility]; Here 09/28/18-10/03/18 then transferred to [facility] for 34 days & she got her trach (10/22/18) and peg (10/23/18), then she was transferred to [facility] where she was for 1 month & per spouse she was dropped at [facility] and this is where she also received the current pressure ulcer that she has) she was then transferred to [facility] "11/26/2018" History of Any Multi-Drug Resistant Organisms: None Reported Additional Past Surgical History / Comment(s): SINUS surgery, insertion of a tracheostomy tube and PEG tube "end of October, beginning of November" Past Anesthesia/Blood Transfusion Reactions: No Reported Reaction Past Psychological History: Depression Smoking Status: Former smoker Past Alcohol Use History: None Reported Past Drug Use History: None Reported - Past Family History Mother Family Medical History: Cancer Father Family Medical History: Cancer General Exam - General Exam Comments Initial Comments: Physical Exam GENERAL: Chronically ill-appearing, appears older than stated age Tracheostomy in place Acute distress HENT: Normocephalic, Atraumatic. EYES: PERRL, EOMI PULMONARY: Unlabored respirations. No audible rales rhonchi or wheezing was noted. CARDIOVASCULAR: RRR ABDOMEN: Soft and nontender with normal bowel sounds. SKIN: Multiple bruises in multiple state of healing in bilateral upper and lower : Deferred NEUROLOGIC: Patient is alert and oriented x3. Moving all extremities spontaneously MUSCULOSKELETAL: Normal extremities with adequate strength and full range of motion. No lower extremity swelling or edema. No calf tenderness. PSYCHIATRIC: Normal psychiatric evaluation Course Vital Signs 12/15/18 22:25 Pulse Rate 74 Respiratory 18 Rate Blood Pressure 122/81 O2 Sat by Pulse 96 Oximetry Medical Decision Making - Medical Decision Making She was seen and evaluated history is obtained from patient and at bedside Patient has known lung cancer she's currently trach due to a recent radius prolonged intubation Patient reports her trach without suction for 2 days and she is having trouble breathing however after large mucous plug was suctioned from the trach she's feeling much better she has no complaints vital signs are stable she does have some her abdomen discomfort basic labs chest x-ray were ordered Labs are patient's baseline is no elevation of AST ALT her bili Chest x-ray with chronic elevation of right lower lobe are likely related to cancer not significantly changed from previous Patient has remained hemodynamically stable no hypoxia no shortness of breath since being in the emergency department she is comfortable with plan to return to [facility] at this time. - Lab Data Result diagrams: 12/15/18 23:20 12/15/18 23:20 Lab Results 12/15/18 12/15/18 Range/Units 23:20 23:20 WBC 12.8 H (3.8-10.6) k/uL RBC 4.10 (3.80-5.40) m/uL Hgb 12.4 (11.4-16.0) gm/dL Hct 39.8 (34.0-46.0) % MCV 97.1 (80.0-100.0) fL MCH 30.3 (25.0-35.0) pg MCHC 31.2 (31.0-37.0) g/dL RDW 18.2 H (11.5-15.5) % Plt Count 409 (150-450) k/uL Neutrophils % 88 % Lymphocytes % 8 % Monocytes % 3 % Eosinophils % 1 % Basophils % 0 % Neutrophils # 11.3 H (1.3-7.7) k/uL Lymphocytes # 1.0 (1.0-4.8) k/uL Monocytes # 0.4 (0-1.0) k/uL Eosinophils # 0.1 (0-0.7) k/uL Basophils # 0.0 (0-0.2) k/uL Hypochromasia Slight Anisocytosis Slight Macrocytosis Slight Sodium 138 (137-145) mmol/L Potassium 4.5 (3.5-5.1) mmol/L Chloride 97 L (98-107) mmol/L Carbon Dioxide 40 H (22-30) mmol/L Anion Gap 1 mmol/L BUN 30 H (7-17) mg/dL Creatinine 0.60 (0.52-1.04) mg/dL Est GFR (CKD-EPI)AfAm >90 (>60 ml/min/1.73 sqM) Est GFR (CKD-EPI)NonAf >90 (>60 ml/min/1.73 sqM) Glucose 159 H (74-99) mg/dL Calcium 8.7 (8.4-10.2) mg/dL Total Bilirubin 0.6 (0.2-1.3) mg/dL AST 31 (14-36) U/L ALT 28 (9-52) U/L Alkaline Phosphatase 97 (38-126) U/L Total Protein 6.3 (6.3-8.2) g/dL Albumin 3.3 L (3.5-5.0) g/dL Disposition Clinical Impression: Tracheostomy complication Disposition: HOME SELF-CARE Condition: Stable Is patient prescribed a controlled substance at d/c from ED?: No Referrals: Grey Hernandez MD [Primary Care Provider] - 1-2 days
[2018-12-16 02:08] VITALS: BP 124/74; PULSE 85; RESP 19; TEMP 98
== END 2018-12-16 01:36 | disposition home or self-care (01) ==
LOC: EC 22:23
DX: J95.00 Unspecified tracheostomy complication (principal); I48.91 Unspecified atrial fibrillation; J44.9 Chronic obstructive pulmonary disease, unspecified; K59.09 Other constipation; E03.9 Hypothyroidism, unspecified; K21.9 Gastro-esophageal reflux disease without esophagitis; F32.9 Major depressive disorder, single episode, unspecified; Z85.038 Personal history of other malignant neoplasm of large intestine; Z85.118 Personal history of other malignant neoplasm of bronchus and lung; Z92.21 Personal history of antineoplastic chemotherapy; Z86.73 Personal history of transient ischemic attack (TIA), and cerebral infarction without residual deficits; Z87.891 Personal history of nicotine dependence; Z79.51 Long term (current) use of inhaled steroids; Z79.890 Hormone replacement therapy; Z79.899 Other long term (current) drug therapy
CPT/HCPCS: 36415; 71046; 80053; 85025; 99285

== ENCOUNTER 2018-12-16 07:08 | Emergency (ER) | payer MEDICARE, OTHER ==
[2018-12-16 07:20] VITALS: PULSE 0; RESP 0
--- NOTE | 2018-12-16 07:22 | ED ---
General Adult HPI - General Stated complaint: CPR Time Seen by Provider: 12/16/18 07:08 Source: RN notes reviewed - History of Present Illness Initial comments: This is a 63-year-old female who presents to the emergency department via EMS as a priority 1 CPR in progress. According to EMS she was in respiratory distress when they arrived they inflated or cough and suctioned her out she was doing considerably better a were taken out the front door she coded and had no pulses and was asystole. According to be a continued CPR for a 30 minute ride in and gave her 6 epinephrines and she remained pulseless and in asystole. No family is with the patient at this time no further history is available this time other than she is a lung cancer patient with a trach. - Related Data Home Medications Medication Instructions Recorded Confirmed Furosemide [Lasix] 40 mg PO DAILY@0909/13/18 12/15/18 Acetaminophen [Tylenol Arthritis] 650 mg PO Q6H PRN 12/02/18 12/15/18 Amiodarone [Cordarone] 200 mg PO DAILY@89912/02/18 12/15/18 Budesonide [Pulmicort] 1 mg INHALATION RT-BID@09,209912/02/18 12/15/18 Chlorhexidine Gluconate [Periogard] 15 ml PO BID@09,209912/02/18 12/15/18 Lactulose 20 gm PO Q8H PRN 12/02/18 12/15/18 Levalbuterol Nebulized [Xopenex 1.25 mg INHALATION RT-Q6H 12/02/18 12/15/18 Nebulized] Levothyroxine Sodium [Synthroid] 50 mcg PO DAILY@59912/02/18 12/15/18 Lisinopril [Zestril] 10 mg PO DAILY@89912/02/18 12/15/18 Ondansetron [Zofran ODT] 4 mg PO Q6H PRN 12/02/18 12/15/18 Pantoprazole Sodium [Protonix] 40 mg PO DAILY@59912/02/18 12/15/18 Polyethylene Glycol 3350 [Miralax] 17 gm PO DAILY PRN 12/02/18 12/15/18 QUEtiapine FUMARATE 50 mg PO BID@0900,209912/02/18 12/15/18 Sennosides/Docusate Sodium 2 tab PO BID@0900,2100 12/02/18 12/15/18 [Senna-S Laxative Tablet] Simethicone 80 mg PO DAILY PRN 12/02/18 12/15/18 hydrALAZINE HCL 25 mg PO TID@0600,1400,2200 12/02/18 12/15/18 Nystatin 500,000 unit PO QID 12/15/18 12/15/18 Previous Rx's Medication Instructions Recorded Cefuroxime Axetil [Ceftin] 500 mg PO BID 7 Days #14 tab 12/13/18 LORazepam [Ativan] 0.5 mg PO Q6H PRN 14 Days #56 tab 12/13/18 Pregabalin [Lyrica] 50 mg PO BID #0 cap 12/13/18 oxyCODONE ER [OxyCONTIN] 10 mg PO BID@0900,2100 14 Days #28 12/13/18 tab.er.12h oxyCODONE HCL [oxyCODONE HCL (IR)] 10 mg PO Q4H PRN 14 Days #54 tablet 12/13/18 Allergies Allergy/AdvReac Type Severity Reaction Status Date / Time No Known Allergies Allergy Verified 12/16/18 07:17 Review of Systems ROS Statement: Those systems with pertinent positive or pertinent negative responses have been documented in the HPI. ROS Other: All systems not noted in ROS Statement are negative. Past Medical History Past Medical History: Atrial Fibrillation, Cancer, COPD, CVA/TIA, Fibromyalgia, GERD/Reflux, Hyperlipidemia, Osteoarthritis (OA), Pneumonia, Thyroid Disorder Additional Past Medical History / Comment(s): Non-small cell lung cancer stage 3 adenocarcinoma, COPD, fibromyalgia, acid reflux, hyperlipidemia, osteoarthritis, adrenal mass that has remained stable over some time, TIA history of, hiatal hernia, chronic constipation, chronic back pain (2 herniated discs, 3 disc fractures), degenerative arthritis, hiatal hernia; hypothyroidism started after chemo; Last Chemo 06/2017 then had immunotherapy for 1 year; first instance of AFib was at [facility]; Here 09/28/18-10/03/18 then transferred to [facility] for 34 days & she got her trach (10/22/18) and peg (10/23/18), then she was transferred to [facility] where she was for 1 month & per spouse she was dropped at [facility] and this is where she also received the current pressure ulcer that she has) she was then transferred to [facility] "11/26/2018" History of Any Multi-Drug Resistant Organisms: None Reported Additional Past Surgical History / Comment(s): SINUS surgery, insertion of a tracheostomy tube and PEG tube "end of October, beginning of November" Past Anesthesia/Blood Transfusion Reactions: No Reported Reaction Past Psychological History: Depression Smoking Status: Former smoker Past Alcohol Use History: None Reported Past Drug Use History: None Reported - Past Family History Mother Family Medical History: Cancer Father Family Medical History: Cancer General Exam - General Exam Comments Initial Comments: GENERAL: Patient is unresponsive and has no movement or respiratory activity EYES: Pupils are fixed and nonreactive PULMONARY: Patient has no spontaneous respirations CARDIOVASCULAR: Patient has no heart rate and no pulses ABDOMEN: No gross abnormalities NEUROLOGIC: Patient is unresponsive GCS is 3 MUSCULOSKELETAL: No gross abnormalities are noted Course Vital Signs 12/16/18 07:17 Pulse Rate 0 L Respiratory 0 L Rate O2 Sat by Pulse 0 L Oximetry Medical Decision Making - Medical Decision Making Patient was pronounced at 709 after she remained in asystole and she had no pulses. CPR door even in progress for 31 minutes and 6 epinephrines had been given I spoke with [facility] and she released the body Disposition Clinical Impression: Cardiac arrest Disposition: Referrals: Grey Hernandez MD [Primary Care Provider] - 1-2 days Time of Disposition: 07:25
== END 2018-12-16 11:15 | disposition expired ==
LOC: EC 07:08
DX: I46.9 Cardiac arrest, cause unspecified (principal); I48.91 Unspecified atrial fibrillation; J44.9 Chronic obstructive pulmonary disease, unspecified; M79.7 Fibromyalgia; K21.9 Gastro-esophageal reflux disease without esophagitis; E78.5 Hyperlipidemia, unspecified; M19.90 Unspecified osteoarthritis, unspecified site; E03.9 Hypothyroidism, unspecified; F32.9 Major depressive disorder, single episode, unspecified; Z85.118 Personal history of other malignant neoplasm of bronchus and lung; Z87.891 Personal history of nicotine dependence; Z79.51 Long term (current) use of inhaled steroids; Z79.890 Hormone replacement therapy; Z79.899 Other long term (current) drug therapy
CPT/HCPCS: 92950; 99285